=== PATIENT | female | born 1960 | race African-American/Black ===

== ENCOUNTER 2017-08-19 16:21 | Inpatient (IN) | payer OTHER ==
[~2017-08-19] VITALS: Ht 165.1 cm; Wt 82.2 kg
[2017-08-19] MEDS ORDERED: SODIUM CHLORIDE 0.9% 1000ML 1,000 ML IV STA (17:55)
[2017-08-19 18:01] LABS: BASOPHILS # (AUTO) 0.1 (0.0-0.1); BASOPHILS % 0.5 % (0.0-1.0); EOSINOPHILS % 0.2 % (0.0-6.0); HEMATOCRIT 34.8 % (34.2-44.1); HEMOGLOBIN 11.5 g/dL (12.0-16.0); LYMPHOCYTES # (AUTO) 2.7 (1.0-3.2); LYMPHOCYTES % 17.6 % (18.0-39.1); MEAN CORPUSCULAR HEMOGLOBIN 27.4 pg (28-32); MEAN CORPUSCULAR VOLUME 82.9 fL (81-99); MONOCYTES % 6.2 % (4.4-11.3); NEUTROPHILS # (AUTO) 11.6 (2.1-6.9); PLATELET COUNT 307 x10e3/uL (140-360); RED CELL DISTRIBUTION WIDTH 13.1 % (11.7-14.4)
[2017-08-19 18:13] LABS: INR 1.1; PROTHROMBIN TIME 13.4 seconds (11.9-14.5)
[2017-08-19 18:14] LABS: PARTIAL THROMBOPLASTIN TIME 25.8 seconds (23.8-35.5)
[2017-08-19 18:19] LABS: ALBUMIN 3.6 g/dL (3.5-5.0); ALBUMIN/GLOBULIN RATIO 0.8 (0.8-2.0); ANION GAP 13.4 mmol/L (8-16); CALCIUM 9.8 mg/dL (8.4-10.2); CREATININE, SERUM 1.53 mg/dL (0.57-1.11); POTASSIUM 4.4 mmol/L (3.5-5.1)
--- NOTE | 2017-08-19 18:58 | Diagnostic Imaging Report ---
PROCEDURE: CHEST SINGLE (PORTABLE) COMPARISON: None. INDICATIONS: FEVER, TOE INFECTION FINDINGS: LUNGS: Well-inflated without mass or infiltrate. The vasculature is normal PLEURA: No effusions or pneumothorax. HEART \T\ MEDIASTINUM: The heart is within normal size-limits. No hilar lymphadenopathy. BONES \T\ SOFT TISSUES: No focal osseous lesions. There is asymmetry of the breasts suggestive of postoperative changes of the right breast. Please correlate with surgical history. No radiopaque foreign bodies in the soft tissues. CONCLUSION: No acute thoracic abnormality. Dictated by: Jeffrey Gordon M.D. on 08/19/2017 at 18:59 Electronically approved by: Jeffrey Gordon M.D. on 08/19/2017 at 18:59
[2017-08-19] MEDS ORDERED: DEXTROSE 50% SYRINGE 50 ML IV PRN ×2 (19:30→21:15)
[2017-08-19] MEDS ORDERED: VANCOMYCIN 1GM/NS 250 ML 250 ML IV SCH ×2 (19:45→20:00)
--- OUTSIDE RECORDS SUMMARY | 2017-08-19 20:10 | XMS REPORT ---
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 Allergies, Adverse Reactions, Alerts This patient has no known allergies or adverse reactions. Medications This patient has no known medications. Results Test Description Test Time Test Comments Text Results Atomic Results Result Comments POCT-GLUCOSE METER 2016-07-28 12:10:00 POC-GLUCOSE METER (BEAKER) (test twre=5165) 133 mg/dL 70-110 TESTED AT [address] [address] HEMOGLOBIN [id number] 08:17:00* Test Item Value Reference Range Comments HEMOGLOBIN A1C (BEAKER) (test himb=447) 13.3 % 4.3-6.1 POCT-GLUCOSE [id number] 07:33:00* Test Item Value Reference Range Comments POC-GLUCOSE METER (BEAKER) (test vyqg=6898) 268 mg/dL 70-110 TESTED AT [address] [address] B-TYPE NATRIURETIC FACTOR (BNP)2016-07-28 06:03:00* Test Item Value Reference Range Comments B-TYPE NATRIURETIC PEPTIDE (BEAKER) (test nwll=317) 57 pg/mL 0-100 POCT-GLUCOSE [id number] 01:17:00* Test Item Value Reference Range Comments POC-GLUCOSE METER (BEAKER) (test ffqx=6875) 270 mg/dL 70-110 TESTED AT [address] [address] POCT-GLUCOSE [id number] 20:33:00* Test Item Value Reference Range Comments POC-GLUCOSE METER (BEAKER) (test oksw=9691) 312 mg/dL 70-110 TESTED AT [address] [address] POCT-GLUCOSE [id number] 17:44:00* Test Item Value Reference Range Comments POC-GLUCOSE METER (BEAKER) (test xsmx=3850) 376 mg/dL 70-110 TESTED AT [facility] [address] [facility] [address] KETONE, [id number] 16:40:00* Test Item Value Reference Range Comments KETONES, BLOOD (BEAKER) (test tcfy=8290) 0.1 mmol/L <0.4 BASIC METABOLIC [id number] 16:11:00* Test Item Value Reference Range Comments SODIUM (BEAKER) (test crdn=184) 140 meq/L 135-148 POTASSIUM (BEAKER) (test dasb=270) 4.5 meq/L 3.6-5.5 CHLORIDE (BEAKER) (test icxi=865) 100 meq/L 98-106 CO2 (BEAKER) (test cajp=798) 29 meq/L 24-32 BLOOD UREA NITROGEN (BEAKER) (test mioh=966) 14 mg/dL 10-26 CREATININE (BEAKER) (test lwrv=206) 0.79 mg/dL 0.50-1.20 GLUCOSE RANDOM (BEAKER) (test uznw=172) 414 mg/dL 70-110 CALCIUM (BEAKER) (test ivjc=650) 8.9 mg/dL 8.5-10.5 EGFR (BEAKER) (test fczi=1618) 92 mL/min/1.73 sq m ESTIMATED GFR IS NOT ACCURATE CREATININE CLEARANCE IN PREDICTING GLOMERULAR FILTRATION RATE. ESTIMATED GFR IS NOT APPLICABLE FOR DIALYSIS PATIENTS. [id number] 16:09:00* Test Item Value Reference Range Comments PROTIME (BEAKER) (test mjkp=088) 10.0 seconds 9.8-12.0 INR (BEAKER) (test tcok=877) 0.9 <=5.9 PARTIAL THROMBOPLASTIN TIME (BEAKER) (test lxzu=416) 20.2 seconds 25.8-34.5 RECOMMENDED COUMADIN/WARFARIN INR THERAPY RANGESSTANDARD DOSE: 2.0 - 3.0 Includes: PROPHYLAXIS for venous thrombosis, systemic embolization; TREATMENT for venous thrombosis and/or pulmonary embolus.HIGH RISK: Target INR is 2.5-3.5 for patients with mechanical heart valves.RAPID [id number] 16:02:00* Test Item Value Reference Range Comments RAPID CKMB (BEAKER) (test ybuy=2022) 3.4 ng/mL 0.0-4.3 RAPID TROPONIN [id number] 16:02:00* Test Item Value Reference Range Comments RAPID TROPONIN I (BEAKER) (test qowf=4324) < ng/mL <0.05 CBC W/PLT COUNT & AUTO [id number] 15:58:00* Test Item Value Reference Range Comments WHITE BLOOD CELL COUNT (BEAKER) (test jwru=952) 11.7 10e3/ L 4.0-10.0 RED BLOOD CELL COUNT (BEAKER) (test dqrn=814) 3.92 10e6/ L 4.00-5.00 HEMOGLOBIN (BEAKER) (test oifi=970) 10.5 g/dL 12.0-15.0 HEMATOCRIT (BEAKER) (test vqll=776) 33.0 % 36.0-45.0 MEAN CORPUSCULAR VOLUME (BEAKER) (test hwxa=185) 84.1 fL 82.0-99.0 MEAN CORPUSCULAR HEMOGLOBIN (BEAKER) (test mhhg=533) 26.8 pg 27.0-33.0 MEAN CORPUSCULAR HEMOGLOBIN CONC (BEAKER) (test dxjp=344) 31.9 g/dL 32.0- 36.0 RED CELL DISTRIBUTION WIDTH (BEAKER) (test qdgf=874) 12.8 % 10.3-14.2 PLATELET COUNT (BEAKER) (test wqvi=520) 359 10e3/ L 150-430 MEAN PLATELET VOLUME (BEAKER) (test endf=030) 7.7 fL 6.5-10.5 NEUTROPHILS RELATIVE PERCENT (BEAKER) (test toxh=836) 54 % LYMPHOCYTES RELATIVE PERCENT (BEAKER) (test hdil=693) 37 % MONOCYTES RELATIVE PERCENT (BEAKER) (test xfng=853) 8 % EOSINOPHILS RELATIVE PERCENT (BEAKER) (test vrjz=873) 1 % BASOPHILS RELATIVE PERCENT (BEAKER) (test dlvg=466) 1 % NEUTROPHILS ABSOLUTE COUNT (BEAKER) (test jsmg=520) 6.31 10e3/ L 1.80-8.00 LYMPHOCYTES ABSOLUTE COUNT (BEAKER) (test xuzz=111) 4.28 10e3/ L 1.48-4.50 MONOCYTES ABSOLUTE COUNT (BEAKER) (test pafu=291) 0.93 10e3/ L 0.00-1.30 EOSINOPHILS ABSOLUTE COUNT (BEAKER) (test mslc=366) 0.12 10e3/ L 0.00-0.50 BASOPHILS ABSOLUTE COUNT (BEAKER) (test xkyi=255) 0.08 10e3/ L 0.00-0.20 CHEST SINGLE (PORTABLE) [facility] [address] [address] Patient Name: ANDREA GORDON MR #: [id number] : 1960 Age/Sex: 57/F Req # : [id number] Adm Physician: Ordered by: CRICKET KILGORE MD Report #: [id number] Location: ER Room/Bed: Procedure: [id number] DX/CHEST SINGLE (PORTABLE) Exam Date: Exam Time: REPORT STATUS: Signed PROCEDURE: CHEST SINGLE (PORTABLE) COMPARISON: None. INDICATIONS: FEVER, TOE INFECTION FINDINGS: LUNGS: Well- inflated without mass or infiltrate. The vasculature is normal PLEURA: No effusions or pneumothorax. HEART T MEDIASTINUM: The heart is within normal size-limits. No hilar lymphadenopathy. BONES T SOFT TISSUES: No focal osseous lesions. There is asymmetry of the breasts suggestive of postoperative changes of the right breast. Please correlate with surgical history. No radiopaque foreign bodies in the soft tissues. CONCLUSION: No acute thoracic abnormality. Dictated by: Yessy Gordon M.D. on 08/19/2017 at 18:59 Electronically approved by: Yessy Gordon M.D. on 08/19/2017 at 18:59 Dictated By: YESSY GORDON MD 58 COPY TO: CRICKET KILGORE MD
--- OUTSIDE RECORDS SUMMARY | 2017-08-19 20:10 | XMS REPORT | Clinical Summary ---
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 Disp. Refills Start End Date Status Date polyethylene glycol Take 17 g by mouth daily 30 each 0 02/14/20 Active (GLYCOLAX) 17 gram packet as needed (Constipation). 15 atorvastatin (LIPITOR) 40 Take 40 mg by mouth. 10/05/19 Active MG tablet 16 baclofen (LIORESAL) 10 MG Take 10 mg by mouth 3 07/09/19 Active tablet (three) times daily as 17 needed . beta carotene 84045 UNIT Take 25,000 Units by Active capsule mouth daily . docosahexanoic acid 300 Take by mouth. Active mg Cap hydroCHLOROthiazide Take 12.5 mg by mouth 07/20/19 Active (MICROZIDE) 12.5 mg every morning . 15 capsule insulin detemir (LEVEMIR INJECT 110 UNITS DAILY. 12/18/19 Active FLEXTOUCH) 100 unit/mL (3 16 mL) InPn injection lisinopril Take 40 mg by mouth. 05/23/19 Active (PRINIVIL,ZESTRIL) 40 MG 17 tablet insulin aspart (NOVOLOG 30 Units 3 (three) times 04/26/20 Active FLEXPEN) 100 unit/mL InPn daily before meals INJECT 16 25 UNITS BEFORE EACH OF THE 3 MEALS. omeprazole (PRILOSEC) 40 Take 40 mg by mouth daily Active MG capsule . ondansetron (ZOFRAN, Take 4 mg by mouth 3 Active HYDROCHLORIDE,) 4 MG (three) times daily as tablet needed . pregabalin (LYRICA) 200 Take 200 mg by mouth 3 05/01/20 Active MG capsule (three) times daily 1 16 tablet twice daily for 2 weeks, then TID. Active Problems Problem Noted Date Pain of left calf 07/28/2016 Chronic diastolic CHF (congestive heart failure) (HCC) 07/28/2016 DM type 2 (diabetes mellitus, type 2) ([facility]) 07/28/2016 Overview: a1c 13.3 (07/2016) Pulmonary hypertension (HCC) 07/28/2016 Moderate malnutrition (HCC) 02/10/2015 Diabetic gastroparesis (HCC) 02/10/2015 Constipation 02/10/2015 Intractable vomiting 02/08/2015 Abdominal fluid collection 02/08/2015 Nausea with vomiting 01/26/2015 Incisional infection, initial encounter 01/25/2015 Abdominal pain 01/17/2015 Chronic cholecystitis with calculus 01/15/2015 Right sided abdominal pain 01/14/2015 Liver mass 01/18/2014 Diabetes type 2, uncontrolled (HCC) 01/18/2014 Anemia 05/18/2013 Overview: Mixed type Gallstones 05/11/2013 Asplenia 05/10/2013 Chronic back pain 05/10/2013 HTN (hypertension) 05/10/2013 Family History Medical History Relation Name Comments Coronary artery disease Brother 3 brothers f [place] Diabetes Brother Hypertension Brother Cancer Father Diabetes Maternal Grandmother Coronary artery disease Mother Diabetes Mother Hypertension Mother Cancer Paternal liver Grandfather Diabetes Paternal Grandmother Cancer Sister colon age 42 Diabetes Sister Hypertension Sister Relation Name Status Comments Brother Father Maternal Grandmother Mother Paternal Grandfather Paternal Grandmother Sister Social History Tobacco Use Types Packs/Day Years Used Date Never Smoker Smokeless Tobacco: Never Used Alcohol Use Drinks/Week oz/Week Comments No Sex Assigned at Date Recorded Not on file Last Filed Vital Signs Not on file Plan of Treatment Not on file Implants Implanted Type Area Reimbursement Analyst Device Expiration Model / Identifier Date Serial / Lot Adhesion Barrier,Seprafilm 5x6 - Cement/Nguyễn N/A: [id number] 01/16/2017 4301-02 / [id number] ler/Adhesi Abdomen SURGICAL / Implanted: Qty: 1 on 01/16/2015 by vufind [id number] Cesar Garner MD Results Not on fileafter 08/18/2016
--- NOTE | 2017-08-19 20:32 | Diagnostic Imaging Report ---
Exam: Left foot series, 3 views. Clinical History: Suspected foreign body in the left hallux, cellulitis Comparison: None. Findings: 3 views of the left foot. There is normal bone mineralization. Negative for acute, displaced fracture or dislocation. Joint spaces are preserved. Small posterior calcaneal enthesophyte. Ill-defined 6 mm rounded nodular density projecting in the soft tissues medial to the base of the first metatarsal bone only on the AP view. No radiopaque foreign bodies are identified. Impression: 1. Ill-defined 6 mm rounded nodular density projecting in the soft tissues medial to the base of the first metatarsal bone is indeterminate. A nonradiopaque foreign body could be a consideration, however, this may be secondary to focal infection, if this is the area of cellulitis. 2. No radiopaque foreign bodies are identified. 3. No cortical erosion or destruction to suggest osteomyelitis.. Signed by: Dr. Kwesi Rizo M.D. on 08/19/2017 8:29 PM
[2017-08-19] MEDS: PIPER-TAZ 3.375 GM 50 ML IV SCH (20:55)
[2017-08-19] MEDS: MORPHINE SULFATE 2 MG/ML SYR IV PRN (21:06)
[2017-08-19] MEDS: ONDANSETRON HCL INJ 2 MG/ML VIAL IV PRN (21:07)
[2017-08-19 21:30] VITALS: BP 148/72
[2017-08-19 21:44] VITALS: BP 126/74
[2017-08-19] MEDS ORDERED: HUMALOG MI100 UNIT/5 (21:44)
[2017-08-19] MEDS ORDERED: GABAPENTIN400 MG PO (21:44)
[2017-08-19] MEDS ORDERED: NOVOLOG100 UNIT/1 (21:44)
[2017-08-19] MEDS ORDERED: SIMVASTATIN10 MG PO (21:44)
[2017-08-19] MEDS ORDERED: LYRICA25 MG PO (21:44)
[2017-08-19] MEDS ORDERED: LISINOPRIL10 MG PO (21:44)
[2017-08-19] MEDS: INSULIN REGULAR, HUMAN 100 UNIT/1 ML 3ML VIAL SQ SCH (22:01)
[2017-08-19] MEDS: SODIUM CHLORIDE 0.9% 1000ML 1,000 ML IV SCH (22:12)
[2017-08-19] MEDS: VANCOMYCIN 1GM/NS 250 ML 250 ML IV SCH (22:25)
[2017-08-20] VITALS: BP 148/67
[2017-08-20] MEDS: PIPER-TAZ 3.375 GM 50 ML IV SCH ×4 (03:17→21:35)
[2017-08-20 04:00] VITALS: BP 164/77
[2017-08-20] MEDS: ONDANSETRON HCL INJ 2 MG/ML VIAL IV PRN ×5 (04:01→20:34)
[2017-08-20] MEDS: MORPHINE SULFATE 2 MG/ML SYR IV PRN ×4 (04:01→20:34)
[2017-08-20] MEDS: SODIUM CHLORIDE 0.9% 1000ML 1,000 ML IV SCH ×3 (04:20→19:30)
[2017-08-20 07:20] LABS: BASOPHILS % 0.2 % (0.0-1.0); EOSINOPHILS # (AUTO) 0.1 (0.0-0.4); EOSINOPHILS % 0.8 % (0.0-6.0); HEMATOCRIT 29.2 % (34.2-44.1); HEMOGLOBIN 9.4 g/dL (12.0-16.0); LYMPHOCYTES # (AUTO) 3.7 (1.0-3.2); LYMPHOCYTES % 28.5 % (18.0-39.1); MEAN CORPUSCULAR HEMOGLOBIN 27.3 pg (28-32); MEAN CORPUSCULAR HGB CONC 32.2 g/dL (31-35); MEAN CORPUSCULAR VOLUME 84.9 fL (81-99); MONOCYTES # (AUTO) 1.4 (0.2-0.8); MONOCYTES % 10.6 % (4.4-11.3); NEUTROPHILS # (AUTO) 7.8 (2.1-6.9); NEUTROPHILS % 59.6 % (38.7-80.0); PLATELET COUNT 275 x10e3/uL (140-360); RED BLOOD COUNT 3.44 x10e6/uL (3.6-5.1); RED CELL DISTRIBUTION WIDTH 13.2 % (11.7-14.4)
[2017-08-20] MEDS ORDERED: INSULIN REGULAR, HUMAN 100 UNIT/1 ML 3ML VIAL SQ SCH (07:30)
[2017-08-20 07:41] LABS: ANION GAP 10.8 mmol/L (8-16); CALCIUM 8.4 mg/dL (8.4-10.2); CREATININE, SERUM 1.96 mg/dL (0.57-1.11); POTASSIUM 4.8 mmol/L (3.5-5.1)
[2017-08-20 07:44] VITALS: BP 161/75
[2017-08-20] MEDS: VANCOMYCIN 1GM/NS 250 ML 250 ML IV SCH ×2 (07:50→20:34)
[2017-08-20] MEDS: DOCUSATE SODIUM 100 MG CAP PO SCH ×2 (08:00→17:00)
[2017-08-20] MEDS: INSULIN REGULAR, HUMAN 100 UNIT/1 ML 3ML VIAL SQ SCH ×4 (10:16→21:30)
[2017-08-20 11:49] VITALS: BP 136/60
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
[2017-08-20 16:04] VITALS: BP 166/77
[2017-08-20] MEDS ORDERED: ENOXAPARIN SOD INJ 40 MG/0.4 ML SYR SC SCH (17:00)
[2017-08-21] VITALS (7 sets, daily range): BP systolic 114–191; BP diastolic 57–86
[2017-08-21] MEDS: HYDRALAZINE HCL 20 MG/ML VIAL IV PRN ×2 (00:31→05:54)
[2017-08-21] MEDS: MORPHINE SULFATE 2 MG/ML SYR IV PRN ×3 (00:40→16:45)
[2017-08-21] MEDS: ONDANSETRON HCL INJ 2 MG/ML VIAL IV PRN ×3 (00:40→16:45)
[2017-08-21] MEDS: SODIUM CHLORIDE 0.9% 1000ML 1,000 ML IV SCH (04:55)
[2017-08-21] MEDS: PIPER-TAZ 3.375 GM 50 ML IV SCH ×3 (06:38→22:35)
[2017-08-21 07:14] LABS: BASOPHILS # (AUTO) 0.1 (0.0-0.1); BASOPHILS % 0.4 % (0.0-1.0); EOSINOPHILS # (AUTO) 0.1 (0.0-0.4); EOSINOPHILS % 0.8 % (0.0-6.0); HEMATOCRIT 31.2 % (34.2-44.1); HEMOGLOBIN 10.1 g/dL (12.0-16.0); LYMPHOCYTES # (AUTO) 5.5 (1.0-3.2); LYMPHOCYTES % 33.2 % (18.0-39.1); MEAN CORPUSCULAR HEMOGLOBIN 27.7 pg (28-32); MEAN CORPUSCULAR HGB CONC 32.4 g/dL (31-35); MEAN CORPUSCULAR VOLUME 85.5 fL (81-99); MONOCYTES # (AUTO) 1.3 (0.2-0.8); MONOCYTES % 7.6 % (4.4-11.3); NEUTROPHILS # (AUTO) 9.5 (2.1-6.9); NEUTROPHILS % 57.6 % (38.7-80.0); PLATELET COUNT 296 x10e3/uL (140-360); RED BLOOD COUNT 3.65 x10e6/uL (3.6-5.1); RED CELL DISTRIBUTION WIDTH 13.2 % (11.7-14.4)
[2017-08-21 07:26] LABS: ANION GAP 14.1 mmol/L (8-16); CALCIUM 9.1 mg/dL (8.4-10.2); CREATININE, SERUM 1.63 mg/dL (0.57-1.11); POTASSIUM 4.1 mmol/L (3.5-5.1)
[2017-08-21 07:39] LABS: MAGNESIUM 1.3 MG/DL (1.3-2.1)
[2017-08-21] MEDS: INSULIN REGULAR, HUMAN 100 UNIT/1 ML 3ML VIAL SQ SCH ×3 (07:45→21:30)
[2017-08-21] MEDS: NPH, HUMAN INSULIN ISOPHANE 100 UNIT/1 ML 3ML VIAL SQ SCH ×2 (07:50→16:25)
--- NOTE | 2017-08-21 07:59 | Progress Note ---
DATE: August 21, 2017 SUBJECTIVE: Patient seen at bedside accompanied by spouse. Having some nausea and vomiting. Has some discomfort to the left lower extremity but is a little bit better than yesterday. OBJECTIVE: Vitals: Afebrile. Pulse rate 93. Respirations 18. Blood pressure 171/79. O2 saturation 96%. Labs show a white blood cell count of 16.4, going up from 13.1. Pedal pulses are palpable. Skin temperature is symmetrical. Some edema noted to the left great toe. ASSESSMENT: Cellulitis secondary to puncture wound with neuropathy. PLAN: X-rays, 3 views of left foot, will be taken and compared to previous x-rays. Will continue IV antibiotics. Patient does have Zofran for her nausea. Will continue to follow and continue IV antibiotics. Job#: [id number]
[2017-08-21] MEDS: VANCOMYCIN 1GM/NS 250 ML 250 ML IV SCH ×2 (08:00→20:20)
[2017-08-21] MEDS: PROMETHAZINE 12.5MG/ NACL 0.9% 12.5 MG/50 ML BAG IV PRN ×2 (08:10→20:20)
[2017-08-21] MEDS: DOCUSATE SODIUM 100 MG CAP PO SCH ×2 (08:30→16:25)
[2017-08-21] MEDS: METOPROLOL TARTRATE 50 MG TAB PO SCH ×2 (08:30→22:40)
[2017-08-21] MEDS: MUPIROCIN 2% OINT 22 GM TUBE TOP SCH (09:15)
[2017-08-21 09:36] LABS: EOSINOPHILS % (MANUAL) 1 % (0-7); LYMPHOCYTES % (MANUAL) 35 % (19-48); MONOCYTES % (MANUAL) 5 % (3.4-9.0); NEUTROPHILS % (MANUAL) 59 % (40-74)
[2017-08-21 09:37] LABS: ANISOCYTOSIS SLIGHT; HYPOCHROMASIA SLIGHT; RBC MORPHOLOGY COMMENT NORMAL
[2017-08-21 09:38] LABS: PLATELET ESTIMATE ADEQUATE; PLATELET MORPHOLOGY COMMENT NORMAL
--- NOTE | 2017-08-21 09:40 | Progress Note ---
DATE: August 20, 2017 INTERNAL MEDICINE PROGRESS NOTE SUBJECTIVE: Ms. Gordon was seen and examined at bedside. Possible improvement slowly on the erythema, but overall still with significant redness, significant warmth and significant possible early fluctuance. The patient's blood pressure is high. The patient otherwise eating better. She feels slightly better today. REVIEW OF SYSTEMS: No headaches. No bleeding. OBJECTIVE VITALS: Afebrile. Vital signs noted per electronic record. GENERAL: No acute distress. Alert and calm. HEENT: Normocephalic and atraumatic. NECK: Supple. Throat midline. LUNGS: Bilateral air entry. Few rhonchi. CARDIOVASCULAR: S1 and S2. No murmurs, rubs or gallops. ABDOMEN: Soft and nontender. EXTREMITIES: No clubbing. No cyanosis. No edema. Only edema, warmth and possible induration is of the left great toe. SKIN: No rash. No purpura. LABS: BUN 29, creatinine 1.9, potassium 4.8. White count 13, hematocrit 29 and platelets 275,000. IMPRESSION AND PLAN 1. Elevated creatinine, acute kidney injury versus chronic kidney disease. 2. Severe but localized cellulitis, possible early abscess or deep tissue infection of left great toe. 3. Diabetes. 4. Hypertension with urgency. 5. Puncture wound with a fractured toe. Will continue local care. IV antibiotics. Follow up kidney function and adjust antibiotics closely. Light Bactroban ointment. Continue wet-to-dry Betadine dressing to the left great toe b.i.d. The patient may or may not need an I and D of the toe. Will follow along closely. Job#: [id number] BUFFY
--- NOTE | 2017-08-21 16:41 | History and Physical ---
PRIMARY CARE DOCTOR: [facility] This is coverage for Dr. Pradeep Mcqueen. HISTORY: Ms. Gordon is a pleasant 57-year-old female with pain to her left great toe. Patient with occurrence 4 days previous. She stepped on a tack. Today, her left hallux is more red and more painful. Her entire foot started to become little bit swollen. This did not get better on conservative therapy. It was very painful, so she elected to come to the emergency room to have evaluation. When she came to emergency room, her white count was 15,000 and blood sugar was 263. Creatinine was 1.5. At this point, it was elected to admit her due to infection severity. PAST MEDICAL HISTORY: Diabetes, hypertension. No knowledge of previous eye problems nor kidney problems from diabetes. MEDICATIONS: Medication list reviewed per electronic record. Diabetes medications include oral hypoglycemics as well as insulin. ALLERGIES: NO KNOWN DRUG ALLERGIES. SOCIAL HISTORY: No smoking, no drinking, no drugs. Patient formerly worked in [employer] industry. FAMILY HISTORY: Noncontributory. REVIEW OF SYSTEMS: GENERAL: No weight changes. OPHTHALMOLOGIC: No double vision. ENT: No dry mouth. LUNGS: No asthma. CARDIAC: No heart attacks. GI: No constipation right now, although there is some chronic constipation. : No blood in urine. MUSCULOSKELETAL: No arthritis significant. DERMATOLOGIC: No rash. PSYCHIATRIC: No depression. LABS: Labs reviewed per electronic record. Albumin is 3.6. Foot x-ray includes no foreign bodies, ill-defined 6-mm rounded nodular density projecting in soft tissues medial to the base of the first metatarsal bone being indeterminate. IMPRESSION AND PLAN: 1. Left great toe cellulitis significant. 2. Abnormal foot radiography, possible soft tissue mass. 3. Diabetes. 4. Hypertension. At this time, will get podiatry consult to review the x-ray. Patient may need local debridement. Patient will have intravenous antibiotics being given. Furthermore, patient will be admitted, and will maintain some control of her diabetes. Dr. Mcqueen and I would like to thank Dr. Lomeli for allowing me the chance to participate in the care of Ms. Gordon. Do not hesitate to call us if we can help in anyway. Job#: [id number]
[2017-08-21] MEDS: ENOXAPARIN 30 MG/0.3 ML SYR SC SCH (17:00)
[2017-08-21] MEDS ORDERED: ENOXAPARIN SOD INJ 40 MG/0.4 ML SYR SC SCH (17:00)
[2017-08-22] VITALS (9 sets, daily range): BP systolic 132–167; BP diastolic 62–77
[2017-08-22] MEDS: SODIUM CHLORIDE 0.9% 1000ML 1,000 ML IV SCH (01:39)
[2017-08-22] MEDS: MORPHINE SULFATE 2 MG/ML SYR IV PRN ×2 (04:39→10:15)
[2017-08-22] MEDS: PROMETHAZINE 12.5MG/ NACL 0.9% 12.5 MG/50 ML BAG IV PRN ×3 (04:46→21:12)
[2017-08-22] MEDS: PIPER-TAZ 3.375 GM 50 ML IV SCH ×3 (06:20→16:08)
[2017-08-22 07:19] LABS: BASOPHILS % 0.3 % (0.0-1.0); EOSINOPHILS # (AUTO) 0.1 (0.0-0.4); EOSINOPHILS % 0.7 % (0.0-6.0); HEMATOCRIT 28.4 % (34.2-44.1); HEMOGLOBIN 9.1 g/dL (12.0-16.0); LYMPHOCYTES # (AUTO) 4.5 (1.0-3.2); LYMPHOCYTES % 38.6 % (18.0-39.1); MEAN CORPUSCULAR HEMOGLOBIN 27.2 pg (28-32); MEAN CORPUSCULAR VOLUME 84.8 fL (81-99); MONOCYTES % 8.2 % (4.4-11.3); NEUTROPHILS # (AUTO) 6.1 (2.1-6.9); NEUTROPHILS % 51.9 % (38.7-80.0); PLATELET COUNT 291 x10e3/uL (140-360); RED BLOOD COUNT 3.35 x10e6/uL (3.6-5.1); RED CELL DISTRIBUTION WIDTH 13.4 % (11.7-14.4)
[2017-08-22] MEDS: NPH, HUMAN INSULIN ISOPHANE 100 UNIT/1 ML 3ML VIAL SQ SCH ×2 (07:30→17:48)
[2017-08-22] MEDS: INSULIN REGULAR, HUMAN 100 UNIT/1 ML 3ML VIAL SQ SCH ×4 (07:30→21:00)
[2017-08-22 07:38] LABS: ALBUMIN 2.7 g/dL (3.5-5.0); ALBUMIN/GLOBULIN RATIO 0.7 (0.8-2.0); ANION GAP 10.8 mmol/L (8-16); CALCIUM 8.8 mg/dL (8.4-10.2); CREATININE, SERUM 1.43 mg/dL (0.57-1.11); MAGNESIUM 1.2 MG/DL (1.3-2.1); POTASSIUM 3.8 mmol/L (3.5-5.1)
--- NOTE | 2017-08-22 08:49 | Progress Note ---
DATE: August 22, 2017 SUBJECTIVE: Patient is doing much better. Denies any history of fever, chills, nausea or vomiting on this date. Decreased pain to the left lower extremity. OBJECTIVE Vitals: Afebrile. Pulse rate 77, respirations 18, blood pressure 132/62. O2 saturation is 97%. Labs show a white blood cell count dropping from 16.49 to 11.67. Still has some tenderness to the left great toe. Decreased cellulitis. There is pain to the plantar medial aspect of the left great toe with decreased pain to the midfoot of the left lower extremity. ASSESSMENT: Puncture wound and cellulitis, left great toe, secondary to multiple punctures with a tack in shoe. PLAN: Will order x-rays, 3 views, which were not done yesterday to see if there are any bony changes or possible gas in the tissue. Will continue IV antibiotics. Continue local wound care. Job#: [id number]
--- NOTE | 2017-08-22 09:37 | Diagnostic Imaging Report ---
PROCEDURE:FOOT LEFT COMPLETE TECHNIQUE:AP, lateral and oblique views left foot INDICATION:Great toe swelling COMPARISON:[facility], DX, FOOT LEFT COMPLETE, 08/19/2017, 21:01. FINDINGS: The left foot is intact and in anatomic alignment. Soft tissue swelling is decreased relative to August 19. No acute focal erosion or periosteal reaction. Chronic fracture of the middle toe middle phalanx without bridging. No foreign bodies. CONCLUSION: 1. No acute abnormality of the great toe. 2. Regional soft tissue swelling appears decreased from August 19. 3. Chronic fracture of the middle toe middle phalanx without osseous bridging. Dictated by: Yonatan Lagos M.D. on 08/22/2017 at 9:38 Electronically approved by: Yonatan Lagos M.D. on 08/22/2017 at 9:38
[2017-08-22] MEDS: VANCOMYCIN 1GM/NS 250 ML 250 ML IV SCH (10:15)
[2017-08-22] MEDS: MUPIROCIN 2% OINT 22 GM TUBE TOP SCH (10:21)
[2017-08-22] MEDS: DOCUSATE SODIUM 100 MG CAP PO SCH ×2 (10:21→17:48)
[2017-08-22] MEDS: METOPROLOL TARTRATE 50 MG TAB PO SCH ×2 (10:21→21:13)
[2017-08-22] MEDS ORDERED: MAGNESIUM SULFATE 2GM/50ML 50 ML IV ONE (12:15)
[2017-08-22] MEDS: ONDANSETRON HCL INJ 2 MG/ML VIAL IV PRN (12:22)
--- NOTE | 2017-08-22 14:33 | Progress Note ---
DATE: August 22, 2017 INTERNAL MEDICINE PROGRESS NOTE OBJECTIVE: Ms. Gordon was seen and examined at bedside. Patient continues to have issues regarding her foot. There is still some pain at the ball of foot but the swelling and the redness around the toe is getting better. Patient continues with no fevers now. White count is improving and is now 12. There is less nausea but she still has nausea. REVIEW OF SYSTEMS: No headaches. No rash. OBJECTIVE: VITAL SIGNS: Afebrile. Vital signs noted per electronic record. GENERAL: No acute distress. Alert and calm. HEENT: Normocephalic, atraumatic. NECK: Supple. Throat midline. LUNGS: Clear. Bilateral air entry. Rare rhonchi. CARDIOVASCULAR: S1, S2. No murmurs, rubs or gallops. ABDOMEN: Soft, nontender. EXTREMITIES: No clubbing. No cyanosis. There is no edema. INTEGUMENT: No rash. No purpura. LABS: Include 12 white count, 29 hematocrit, 15 BUN, creatinine 1.4. Magnesium 1.2. IMPRESSION/PLAN: 1. Acute kidney failure, cannot rule out chronic kidney disease but ultrasound was normal. 2. Severe cellulitis of left big toe. 3. Uncontrolled diabetes. 4. Hypomagnesemia. Recheck foot x-ray today. Replete magnesium. Will repeat a vancomycin trough given the very fragile kidney state and the elevated creatinine 1.4. Continue the antibiotic and she is improving. Job#: [id number] KOBE
[2017-08-22] MEDS: ENOXAPARIN 30 MG/0.3 ML SYR SC SCH (17:00)
--- NOTE | 2017-08-22 20:14 | Progress Note ---
DATE: August 21, 2017 INTERNAL MEDICINE PROGRESS NOTE SUBJECTIVE: Ms. Gordon was seen and examined at bedside. She continues to have some foot pain. However, it is slightly better swelling, less erythema today. She is having some nausea, however. Blood pressure remains high normal or high. REVIEW OF SYSTEMS: No diarrhea, no rash. OBJECTIVE VITALS: Afebrile. Vital signs noted per the chart record. GENERAL: No acute distress. Alert but looks pale and still not looking healthy yet. HEENT: Normocephalic and atraumatic. NECK: Supple. Throat midline. LUNGS: Bilateral air entry. Clear. CARDIOVASCULAR: S1 and S2. No murmurs, rubs, or gallops. ABDOMEN: Soft and nontender. EXTREMITIES: No clubbing. No cyanosis. There is decreased edema, decreased erythema, and decreased warmth to the left hallux. However, it is still very tender. LABS: BUN 17, creatinine 1.6. White count 16, hematocrit 31, and platelets 296,000. IMPRESSIONS 1. Acute kidney failure. 2. Severe sepsis.. 3. Left toe cellulitis, severe. 4. Diabetes. 5. nausea, emesis, and malaise. PLAN: Continue IV antibiotics. Follow up until this gets better. Podiatry followup is appreciated. Hopefully, the patient does not need any surgical management. Continue to follow the creatinine very closely given the kidney failure and the vancomycin which may have to be adjusted continuously. IV fluid low dose. Antiemetics. Job#: [id number]
[2017-08-22] MEDS: VANCOMYCIN 750MG/NS 150ML IVPB 150 ML IV SCH (21:12)
[2017-08-23] VITALS (7 sets, daily range): BP systolic 117–164; BP diastolic 54–78
[2017-08-23] MEDS: PIPER-TAZ 3.375 GM 50 ML IV SCH ×3 (00:13→17:02)
[2017-08-23] MEDS: SODIUM CHLORIDE 0.9% 1000ML 1,000 ML IV SCH ×2 (06:08→17:02)
[2017-08-23] MEDS: INSULIN REGULAR, HUMAN 100 UNIT/1 ML 3ML VIAL SQ SCH ×4 (07:30→20:55)
[2017-08-23] MEDS: NPH, HUMAN INSULIN ISOPHANE 100 UNIT/1 ML 3ML VIAL SQ SCH ×2 (07:30→17:11)
[2017-08-23 08:01] LABS: ANION GAP 10.3 mmol/L (8-16); CALCIUM 8.6 mg/dL (8.4-10.2); CREATININE, SERUM 1.41 mg/dL (0.57-1.11); MAGNESIUM 1.7 MG/DL (1.3-2.1); POTASSIUM 4.3 mmol/L (3.5-5.1)
[2017-08-23] MEDS: DOCUSATE SODIUM 100 MG CAP PO SCH ×2 (10:00→17:03)
[2017-08-23] MEDS: MORPHINE SULFATE 2 MG/ML SYR IV PRN (10:01)
[2017-08-23] MEDS: MUPIROCIN 2% OINT 22 GM TUBE TOP SCH (10:01)
[2017-08-23] MEDS: PROMETHAZINE 12.5MG/ NACL 0.9% 12.5 MG/50 ML BAG IV PRN ×2 (10:01→22:55)
[2017-08-23] MEDS: METOPROLOL TARTRATE 50 MG TAB PO SCH ×2 (10:01→20:54)
[2017-08-23] MEDS: VANCOMYCIN 750MG/NS 150ML IVPB 150 ML IV SCH ×2 (11:00→23:24)
--- NOTE | 2017-08-23 15:00 | Progress Note ---
DATE: August 23, 2017 SUBJECTIVE: Patient is seen at bedside, doing better. She does have some nausea and vomiting after eating. Denies any history of fever or chills. OBJECTIVE VITAL SIGNS: Afebrile. Pulse rate 67, respirations 18, blood pressure 150/70, and O2 saturation 97%. LABORATORY DATA: Labs show a white blood cell count dropping to 11.6, hemoglobin 9.1, and hematocrit 28.4 with a platelet count of 291. Has a necrotic scab plantar aspect of the left great toe, demarcating, decreased pain. There feels to be no evidence of any type of fluctuance on the toe. ASSESSMENT: Resolving cellulitis with a grade 1, possibly grade 2 ulceration, left great toe secondary to multiple puncture wounds via tack. PLAN: We will continue to monitor. The lesion may be surgically debrided at bedside possibly tomorrow or Friday depending on how patient is feeling. We will continue IV antibiotics. We will continue offloading and continue wound care. Job#: [id number] RIC
--- NOTE | 2017-08-23 16:07 | Progress Note ---
DATE: August 23, 2017 INTERNAL MEDICINE PROGRESS NOTE SUBJECTIVE: Ms. Gordon was seen and examined at bedside. She is mostly accepting her antibiotics. She still gets some nausea when she gets both of her antibiotics. Has 97% oxygen saturation room air FiO2, so she is looking about the same as it is not clearly getting better yet. REVIEW OF SYSTEMS: No bleeding. No diarrhea. OBJECTIVE VITAL SIGNS: Afebrile. Vital signs reviewed per electronic record. GENERAL: No acute distress. Alert and calm but very weak and pale. HEENT: Normocephalic, atraumatic. NECK: Supple. Throat midline. LUNGS: Bilateral air entry. A few rhonchi. CARDIOVASCULAR: S1, S2. No murmurs, rubs or gallops. ABDOMEN: Soft, nontender. EXTREMITIES: No clubbing. No cyanosis. There is still edema local to the foot only. INTEGUMENT: No rash. Covered lesion. LABS: BUN 15 and 1.4 creatinine, 12 white count, 20 hematocrit, 291 platelets. IMPRESSION AND PLAN 1. Acute kidney failure. 2. Severe sepsis, cellulitis plus or minus other possible deeper infection. 3. Diabetes. 4. Nausea and vomiting, intermittent. 5. Hypertension. Hypertension control minimally off but fair for now. We will not change medicines as sometimes the blood pressure goes to the 100 to 117 range. Glycemic control is better today as we restarted more insulin and will continue to creep up slowly, noting the patient is not eating all the time. Continue IV antibiotics. Follow up and treat symptoms. Podiatry is considering if they have to open up the lesion due to persistent symptoms and the slow progress. Job#: [id number]
[2017-08-23] MEDS: ENOXAPARIN 30 MG/0.3 ML SYR SC SCH (17:00)
[2017-08-23] MEDS: ONDANSETRON HCL INJ 2 MG/ML VIAL IV PRN (20:55)
[2017-08-24] VITALS (8 sets, daily range): BP systolic 135–169; BP diastolic 61–79
[2017-08-24] MEDS: PIPER-TAZ 3.375 GM 50 ML IV SCH ×3 (00:31→16:12)
[2017-08-24] MEDS: PROMETHAZINE 12.5MG/ NACL 0.9% 12.5 MG/50 ML BAG IV PRN ×3 (05:27→17:50)
[2017-08-24] MEDS: HYDRALAZINE HCL 20 MG/ML VIAL IV PRN (05:28)
[2017-08-24] MEDS: MORPHINE SULFATE 2 MG/ML SYR IV PRN ×3 (08:20→19:29)
[2017-08-24] MEDS: DOCUSATE SODIUM 100 MG CAP PO SCH ×2 (09:00→16:12)
[2017-08-24] MEDS: VANCOMYCIN 750MG/NS 150ML IVPB 150 ML IV SCH ×2 (09:00→19:29)
[2017-08-24] MEDS: METOPROLOL TARTRATE 50 MG TAB PO SCH ×2 (09:00→20:15)
[2017-08-24] MEDS: NPH, HUMAN INSULIN ISOPHANE 100 UNIT/1 ML 3ML VIAL SQ SCH ×2 (09:07→17:51)
[2017-08-24] MEDS: INSULIN REGULAR, HUMAN 100 UNIT/1 ML 3ML VIAL SQ SCH ×4 (09:08→20:18)
--- NOTE | 2017-08-24 11:25 | Progress Note ---
DATE: August 24, 2017 SUBJECTIVE: Patient seen at bedside accompanied by his spouse. He is relaying decreased pain to the left lower extremity. Denying any history of fever, chills, nausea or vomiting. OBJECTIVE VITAL SIGNS: Afebrile. Pulse rate 84, respirations 18, blood pressure 157/77, and O2 saturation 97%. EXTREMITIES: Has some necrosis to the plantar aspect of the left great toe superficial, possibly down to subcutaneous tissue, measuring less than 1.5 cm in diameter. Still some swelling noted to the left foot. LABS: Noted. ASSESSMENT: Grade II ulcer secondary to puncture wound, peripheral neuropathy with a fractured third digit left foot, feeling somewhat better. PLAN: We will continue bridgette splint to second and third toes. We will continue IV antibiotics such as vancomycin and Zosyn. Ulceration may be debrided tomorrow. We will repeat CBC with this in a.m. tomorrow. Job#: [id number] VAS
[2017-08-24] MEDS: PSYLLIUM 6GM PACKET PO PRN (12:06)
[2017-08-24] MEDS: MUPIROCIN 2% OINT 22 GM TUBE TOP SCH (13:59)
[2017-08-24] MEDS: ENOXAPARIN 30 MG/0.3 ML SYR SC SCH (16:12)
[2017-08-24] MEDS: METOCLOPRAMIDE HCL 10 MG TAB PO SCH (20:15)
[2017-08-25] VITALS (9 sets, daily range): BP systolic 145–159; BP diastolic 65–88
[2017-08-25] MEDS: PIPER-TAZ 3.375 GM 50 ML IV SCH ×3 (00:55→16:00)
[2017-08-25] MEDS: MORPHINE SULFATE 2 MG/ML SYR IV PRN ×4 (01:30→23:12)
[2017-08-25] MEDS: PROMETHAZINE 12.5MG/ NACL 0.9% 12.5 MG/50 ML BAG IV PRN (01:30)
[2017-08-25] MEDS: SODIUM CHLORIDE 0.9% 1000ML 1,000 ML IV SCH ×2 (03:39→08:55)
[2017-08-25] MEDS: HYDRALAZINE HCL 20 MG/ML VIAL IV PRN (06:43)
[2017-08-25 07:25] LABS: BASOPHILS # (AUTO) 0.1 (0.0-0.1); BASOPHILS % 0.6 % (0.0-1.0); EOSINOPHILS # (AUTO) 0.2 (0.0-0.4); EOSINOPHILS % 1.4 % (0.0-6.0); HEMATOCRIT 27.9 % (34.2-44.1); HEMOGLOBIN 8.8 g/dL (12.0-16.0); LYMPHOCYTES # (AUTO) 3.3 (1.0-3.2); LYMPHOCYTES % 30.8 % (18.0-39.1); MEAN CORPUSCULAR HEMOGLOBIN 27.2 pg (28-32); MEAN CORPUSCULAR HGB CONC 31.5 g/dL (31-35); MEAN CORPUSCULAR VOLUME 86.1 fL (81-99); MONOCYTES # (AUTO) 1.1 (0.2-0.8); NEUTROPHILS # (AUTO) 6.1 (2.1-6.9); NEUTROPHILS % 56.9 % (38.7-80.0); PLATELET COUNT 335 x10e3/uL (140-360); RED BLOOD COUNT 3.24 x10e6/uL (3.6-5.1); RED CELL DISTRIBUTION WIDTH 13.5 % (11.7-14.4)
[2017-08-25] MEDS: INSULIN REGULAR, HUMAN 100 UNIT/1 ML 3ML VIAL SQ SCH ×4 (07:30→21:00)
[2017-08-25 07:49] LABS: ANION GAP 10.9 mmol/L (8-16); CALCIUM 8.6 mg/dL (8.4-10.2); CREATININE, SERUM 1.1 mg/dL (0.57-1.11); MAGNESIUM 1.5 MG/DL (1.3-2.1); POTASSIUM 3.9 mmol/L (3.5-5.1)
[2017-08-25] MEDS: NPH, HUMAN INSULIN ISOPHANE 100 UNIT/1 ML 3ML VIAL SQ SCH ×2 (08:00→16:25)
[2017-08-25] MEDS: METOCLOPRAMIDE HCL 10 MG TAB PO SCH ×4 (08:00→22:14)
[2017-08-25] MEDS: DOCUSATE SODIUM 100 MG CAP PO SCH ×2 (08:15→17:15)
[2017-08-25] MEDS: METOPROLOL TARTRATE 50 MG TAB PO SCH ×2 (08:15→22:13)
[2017-08-25] MEDS: PSYLLIUM 6GM PACKET PO PRN (09:05)
--- NOTE | 2017-08-25 09:20 | Progress Note ---
DATE: August 25, 2017 SUBJECTIVE: Patient seen at bedside. Having some moderate pain to the head. Denying any history of fever, chills, nausea or vomiting. OBJECTIVE: Vitals: Afebrile. Pulse rate 79, respirations 16, blood pressure 145/70, O2 saturation 97%. Labs noted. White blood cell count 10.7, hemoglobin 8.8, hematocrit 27.9 with a platelet count of 335. Cellulitis of the left great toe continues to improve. Still some pain upon palpation and some cellulitis plantarly into the metatarsophalangeal joint. ASSESSMENT: Cellulitis with neuropathy and pain, 2nd toe left foot, with a possible grade-2 ulcer with some necrosis noted plantarly. PLAN: Secondary to the pain she was having, no debridement of the ulcer was done on this date. Will continue local wound care. Continue IV antibiotics. Debridement of ulcer will be done tomorrow if she is feeling better. Job#: [id number]
[2017-08-25] MEDS: VANCOMYCIN 750MG/NS 150ML IVPB 150 ML IV SCH ×2 (09:35→23:12)
[2017-08-25] MEDS: MUPIROCIN 2% OINT 22 GM TUBE TOP SCH (09:56)
[2017-08-25] MEDS: ONDANSETRON HCL INJ 2 MG/ML VIAL IV PRN (11:39)
--- NOTE | 2017-08-25 13:21 | Progress Note ---
DATE: August 24, 2017 INTERNAL MEDICINE PROGRESS NOTE SUBJECTIVE: Mrs. Gordon was seen and examined at bedside. The foot is slightly better superficially. However, there still seems to be some swelling of her skin. There is some necrosis on plantar aspect of the left great toe. Patient still on the IV fluid at 60 mL per hour. There is mild nausea before meals. Blood pressure transiently elevated this morning. REVIEW OF SYSTEMS: No headaches, no rash. OBJECTIVE VITAL SIGNS: Afebrile. Vital signs stable, reviewed per electronic record. GENERAL: No acute distress. Alert and calm. HEENT: Normocephalic, atraumatic. NECK: Supple. Throat midline. LUNGS: Bilateral air entry, clear. CARDIOVASCULAR: S1, S2. No murmurs, rubs or gallops. ABDOMEN: Soft, nontender. EXTREMITIES: No clubbing, no cyanosis. There is mild edema at the involved foot. IMPRESSIONS AND PLAN 1. Recurrent nausea, possible gastropathy. 2. Admit for severe left toe cellulitis, rule out deep infection. 3. Uncontrolled diabetes. 4. Hypertension. Modified medicine slightly given for blood pressure control. Increase sugar control, but recently it is much better since changes done yesterday. Will follow up closely. Continue encourage eating. Will give before meals. Continue IV fluids and intermittent vancomycin troughs. Podiatry to debride tomorrow due to leg in progress. Job#: [id number] CQ
[2017-08-25] MEDS: ACETAMINOPHEN 325 MG TAB PO PRN (15:54)
[2017-08-25] MEDS: ENOXAPARIN 30 MG/0.3 ML SYR SC SCH (17:00)
[2017-08-25] MEDS ORDERED: ACETAMINOPHEN/CODEINE 300MG - 30MG TAB PO PRN (18:45)
[2017-08-25] MEDS ORDERED: MORPHINE SULFATE 2 MG/ML SYR IV PRN (22:45)
[2017-08-26] VITALS (11 sets, daily range): BP systolic 126–223; BP diastolic 62–110
[2017-08-26] MEDS: PIPER-TAZ 3.375 GM 50 ML IV SCH ×2 (00:11→08:00)
--- NOTE | 2017-08-26 00:40 | Progress Note ---
DATE: August 25, 2017 INTERNAL MEDICINE PROGRESS NOTE SUBJECTIVE: Patient was seen and examined at bedside. Patient with improving blood works including creatinine. Patient also has continued pain of lower extremity. It was elected due to refractory leg symptoms that it would be preferable to open up and debride. Patient with slightly high blood pressure and this was deferred after discussing with patient. Patient overall with slightly improving . REVIEW OF SYSTEMS: No headaches, no bleeding. OBJECTIVE: VITAL SIGNS: Afebrile, vital signs noted per electronic record. GENERAL: In no acute distress, alert and calm. HEENT: Normocephalic, atraumatic. NECK: Supple. Throat midline. LUNGS: Bilateral air entry, few rare rhonchi. CARDIOVASCULAR: S1, S2. No murmurs, rubs, or gallops. ABDOMEN: Soft, nontender. EXTREMITIES: No clubbing, no cyanosis, there is no generalized edema, just focal edema on that affected foot. INTEGUMENT: No rash, no purpura. The lesion was covered. LABS: 14 BUN, 1.1 creatinine. 3.9 potassium. 11 white count, 28 hematocrit, 335,000 platelets. IMPRESSION AND PLAN: 1. Cellulitis, severe. 2. Neuropathy and pain. 3. Uncontrolled diabetes. 4. Fractured third toe. 5. Acute kidney failure. Will stop fluid as creatinine is much improved. Intermittent vancomycin levels will be continued. Continue to adjust vancomycin as needed. Continue slow diabetes control. The sugars are better. Furthermore, blood pressure is better. Will slowly resume some medications including her angiotensin-converting enzyme inhibitor, which was originally held due to the kidney failure. Podiatry to debride the foot tomorrow. Job#: [id number]
[2017-08-26] MEDS: HYDRALAZINE HCL 20 MG/ML VIAL IV PRN ×2 (02:45→04:57)
[2017-08-26] MEDS: MORPHINE SULFATE 2 MG/ML SYR IV PRN ×5 (04:57→21:50)
[2017-08-26] MEDS: PROMETHAZINE 12.5MG/ NACL 0.9% 12.5 MG/50 ML BAG IV PRN ×2 (04:57→10:06)
[2017-08-26] MEDS: METOCLOPRAMIDE HCL 10 MG TAB PO SCH ×4 (07:30→20:49)
[2017-08-26] MEDS: INSULIN REGULAR, HUMAN 100 UNIT/1 ML 3ML VIAL SQ SCH ×4 (07:30→21:00)
[2017-08-26] MEDS: NPH, HUMAN INSULIN ISOPHANE 100 UNIT/1 ML 3ML VIAL SQ SCH ×2 (07:50→16:20)
[2017-08-26] MEDS: VANCOMYCIN 750MG/NS 150ML IVPB 150 ML IV SCH (08:00)
[2017-08-26] MEDS ORDERED: METHYLPREDNISOLONE SOD SUCC 125 MG/2ML VIAL IV ONE (08:30)
[2017-08-26] MEDS ORDERED: DIPHENHYDRAMINE HCL INJ 50 MG/ML VIAL IV ONE (08:30)
[2017-08-26] MEDS: METOPROLOL TARTRATE 50 MG TAB PO SCH (09:00)
[2017-08-26] MEDS: DOCUSATE SODIUM 100 MG CAP PO SCH ×2 (09:00→16:20)
[2017-08-26] MEDS: MUPIROCIN 2% OINT 22 GM TUBE TOP SCH (09:15)
--- NOTE | 2017-08-26 09:17 | Progress Note ---
DATE: August 26, 2017 SUBJECTIVE: Patient was seen at bedside. Having some nausea and swelling to her face and eyes possibly secondary to allergic reaction possibly to IV antibiotics. OBJECTIVE VITAL SIGNS: Afebrile. Vital signs stable. EXTREMITIES: Decreased pain to the left lower extremity. Some necrosis noted to the plantar aspect of the left great toe possibly down to subcutaneous tissue. Still some swelling of the left great toe when compared to the right. LABS: Noted. White blood cell count 10.7. ASSESSMENT: Possible allergic reaction to intravenous antibiotics with resolving cellulitis and grade 2 ulceration, left great toe. PLAN: No debridement was done on this date secondary to the patient feeling somewhat nauseated and swollen. Will discontinue antibiotics. Will start giving her some Benadryl IV and Solu-Medrol. The patient will be seen in the morning. Possible debridement may be done. If she does well, she may be discharged after debridement if okay with Dr. Cuellar. Job#: [id number] BUFFY
[2017-08-26] MEDS: PSYLLIUM 6GM PACKET PO PRN (12:05)
[2017-08-26] MEDS: ONDANSETRON HCL INJ 2 MG/ML VIAL IV PRN (14:55)
[2017-08-26] MEDS: ENOXAPARIN 30 MG/0.3 ML SYR SC SCH (17:00)
[2017-08-26] MEDS ORDERED: LABETALOL HCL 20 ML ONE (20:41)
[2017-08-26 20:58] LABS: ABG PH 7.44 (7.31-7.41)
[2017-08-26 20:59] LABS: ABG PCO2 27 mmHg (41-51); ABG PO2 48 mmHg (80-105)
[2017-08-26 21:00] LABS: ABG HCO3 19 mmol/L (23-28)
[2017-08-26 21:02] LABS: ANION GAP 19.2 mmol/L (8-16); CALCIUM 9.3 mg/dL (8.4-10.2); CREATININE, SERUM 1.54 mg/dL (0.57-1.11); POTASSIUM 4.2 mmol/L (3.5-5.1)
[2017-08-26] MEDS ORDERED: HYDRALAZINE HCL 20 MG/ML VIAL IV PRN (21:30)
--- NOTE | 2017-08-26 21:30 | Progress Note ---
DATE: August 26, 2017 INTERNAL MEDICINE PROGRESS NOTE SUBJECTIVE: Ms. Gordon was eating well. Bowel movement was achieved. Normal room air FIO2. Earlier in the day she said her left side of face and arm got a little bit swollen. There was some muscle tingling and numbness. However, the swelling got better. For this reason, we got infectious disease involved to try to help out with the case due to new symptoms. The patient without jaelyn recurrence during the day. However, she remained on modified antibiotics due to this and because of this she also did not get the debridement done of her foot. REVIEW OF SYSTEMS: No bleeding, no new leg edema. OBJECTIVE VITAL SIGNS: Afebrile. Vital signs noted per electronic record. GENERAL: In no apparent distress, alert and calm right now. HEENT: Normocephalic, atraumatic. NECK: Supple. Throat midline. LUNGS: Bilateral air entry, clear. CARDIOVASCULAR: S1 and S2 with no murmurs, rubs or gallops. ABDOMEN: Soft and nontender. EXTREMITIES: No clubbing or cyanosis. There is edema to that right foot. INTEGUMENT: No rash, no purpura. The wound was covered. LABORATORY DATA: BUN 14 yesterday, creatinine 1.1 yesterday. IMPRESSION AND PLAN 1. Hypertension, urgency versus emergency. 2. Diabetes, recently better controlled but this afternoon very high, poor control. 3. Admit with left hallux severe cellulitis. 4. Acute kidney injury, improved. 5. Episode of spontaneous swelling of left face and left arm per the patient. 6. Continue serial neurologic followup. 7. Control blood pressure. 8. Control glycemia. Orders were given and noted. 9. Follow up closely. 10. Antibiotics will now be adjusted by infectious disease now that the patient has that severe reaction. 11. Will follow along closely. Job#: [id number]
[2017-08-26 21:35] LABS: INR 1.1; PROTHROMBIN TIME 13.4 seconds (11.9-14.5)
[2017-08-26 21:43] LABS: PARTIAL THROMBOPLASTIN TIME 19.8 seconds (23.8-35.5)
--- NOTE | 2017-08-26 21:55 | Consultation ---
DATE OF CONSULTATION: August 26, 2017 REASON FOR CONSULTATION: Infection of the foot. HISTORY OF PRESENT ILLNESS: This is a 57-year-old female who comes into the emergency room with pain in her left great toe. The patient said that 4 days before she came here she stepped on a tac. Left hallux became red and painful and swollen and she had to come to the emergency room. The patient was having severe pain. She came to emergency room and on admission she had creatinine 1.5. Glucose of 264 and her white count 145,000. PAST MEDICAL HISTORY: Diabetes mellitus, hypertension. PAST SURGICAL HISTORY: Denies. ALLERGIES: NKA. SOCIAL HISTORY: Does not smoke, no drug abuse or alcohol use. FAMILY HISTORY: Otherwise unremarkable. The patient was admitted. She was seen by Dr. Ramin Quiroga. The patient was started on IV antibiotic. Apparently, she had some nausea and swelling of her face. Surgery was consulted. Dr. Quiroga noted that no debridement was done, but they plan for her to have it soon. LABORATORY DATA: White count is coming down to 10.7, hemoglobin 8.8. Her sodium 141, potassium 3.9, creatinine 1.10, C-reactive protein 64. The patient had a foot x-ray which showed soft tissue swelling, chronic fracture of the middle toe. PHYSICAL EXAMINATION: GENERAL: She is currently alert, oriented and does not seem in acute distress. VITALS: Stable. Currently afebrile. HEENT: She is not icteric. NECK: Supple. No JVD. No thyromegaly. CHEST: Clear bilaterally. COR: S1 AND S2. No murmur. ABDOMEN: Soft. Bowel sounds present. No tenderness. EXTREMITIES: No edema at the present time. IMPRESSION: Infection of the foot and neuropathy. Apparently, she was on vancomycin and Zosyn, and that is when she got the reaction. I suggest to obtain an MRI. Will change her to meropenem. I agree with surgical debridement for culture and sensitivity. Will discuss with Dr. Quiroga. Will follow. Job#: [id number]
[2017-08-26] MEDS ORDERED: HEPARIN SOD (PORCINE) 5,000 UNIT/ML VIAL IV ONE (22:30)
[2017-08-26] MEDS: ACETAMINOPHEN 325 MG TAB PO PRN (22:30)
--- NOTE | 2017-08-26 22:36 | Diagnostic Imaging Report ---
EXAMINATION: Head CT without contrast. HISTORY:Dizziness, altered mental status. COMPARISON:None. TECHNIQUE: Multidetector axial images were obtained from the foramen magnum to the vertex without contrast. The images were reconstructed using brain and bone algorithms. Thin section brain images were reformatted into coronal and sagittal planes. Intravenous contrast: None IMAGE QUALITY: Acceptable. FINDINGS: Skull/scalp: No lytic or blastic. lesions. No surgical changes. Parenchyma: No abnormal density. No acute hemorrhage, mass or acute major vascular territorial infarct. Arteries: No density suggestive of thrombosis. Dural sinuses: No abnormal density suggestive of thrombosis. Ventricles: No hydrocephalus or displacement. Extra-axial spaces: No abnormal density. Brain volume: Normal for age. Craniocervical junction: No mass, Chiari malformation, or basilar invagination. Sella: No mass. Paranasal/mastoid sinuses: Imaged portions unremarkable. IMPRESSION: No intracranial abnormality. Signed by: Dr. Dianne rFancis M.D. on 08/26/2017 10:33 PM
[2017-08-26] MEDS: CLINDAMYCIN 600MG/D5W 50ML 50 ML IV SCH (23:55)
[2017-08-27] VITALS (7 sets, daily range): BP systolic 122–166; BP diastolic 62–79
[2017-08-27] MEDS: METOPROLOL TARTRATE 50 MG TAB PO SCH ×2 (00:20→21:20)
[2017-08-27] MEDS: HEPARIN 25,000U/0.45% NS 250ML 25,000 UNIT in SODIUM CHLORIDE 0.9% 250ML 0 ML IV SCH ×2 (01:06→22:08)
[2017-08-27 01:16] LABS: CREATINE KINASE MB 1.4 ng/mL (0-5.0)
[2017-08-27] MEDS: MORPHINE SULFATE 2 MG/ML SYR IV PRN ×4 (02:00→20:05)
--- NOTE | 2017-08-27 05:52 | Diagnostic Imaging Report ---
EXAM: CHEST SINGLE (PORTABLE), AP 1 view INDICATION: Cellulitis COMPARISON: None FINDINGS: LINES/TUBES: None LUNGS: Vascular congestion. PLEURA: No effusions or pneumothorax. HEART AND MEDIASTINUM: The heart is within normal size limits for technique. Prominence of the right paratracheal stripe. BONES AND SOFT TISSUES: No acute findings. IMPRESSION: Nonspecific widening of the upper mediastinum. An upright PA and lateral view of the chest is recommended. Signed by: Dr. Charley Petit M.D. on 08/27/2017 5:48 AM
[2017-08-27] MEDS: CLINDAMYCIN 600MG/D5W 50ML 50 ML IV SCH ×3 (06:16→22:07)
[2017-08-27] MEDS: METOCLOPRAMIDE HCL 10 MG TAB PO SCH (07:30)
[2017-08-27] MEDS: NPH, HUMAN INSULIN ISOPHANE 100 UNIT/1 ML 3ML VIAL SQ SCH ×2 (07:30→16:30)
[2017-08-27] MEDS: INSULIN REGULAR, HUMAN 100 UNIT/1 ML 3ML VIAL SQ SCH ×4 (07:30→21:20)
[2017-08-27 07:35] LABS: BASOPHILS % 0.2 % (0.0-1.0); HEMATOCRIT 25.8 % (34.2-44.1); HEMOGLOBIN 8.4 g/dL (12.0-16.0); LYMPHOCYTES # (AUTO) 3.1 (1.0-3.2); LYMPHOCYTES % 18.2 % (18.0-39.1); MEAN CORPUSCULAR HEMOGLOBIN 27.4 pg (28-32); MEAN CORPUSCULAR HGB CONC 32.6 g/dL (31-35); MONOCYTES # (AUTO) 1.3 (0.2-0.8); MONOCYTES % 7.8 % (4.4-11.3); NEUTROPHILS # (AUTO) 12.4 (2.1-6.9); NEUTROPHILS % 72.9 % (38.7-80.0); PLATELET COUNT 362 x10e3/uL (140-360); RED BLOOD COUNT 3.07 x10e6/uL (3.6-5.1); RED CELL DISTRIBUTION WIDTH 13.5 % (11.7-14.4)
--- NOTE | 2017-08-27 07:35 | Progress Note ---
DATE: August 27, 2017 SUBJECTIVE: Patient now on a heparin. Doing better. There is minimal swelling to her left face. Denies any history of fever, chills, nausea, or nausea. OBJECTIVE VITALS: Afebrile. Vital signs stable. EXTREMITIES: Decreased swelling to the left lower extremity. Has some superficial necrosis going down to the plantar aspect of the left great toe. Swelling to the left foot has gone down significantly with decreased pain. Labs noted. Has a last white blood cell count of 7.7. ASSESSMENT: Cellulitis, left great toe, resolving with a grade 1 possibly 2 ulceration, left. PLAN: It is okay for the patient to be discharged if okay with admitting doctor. Patient instructed upon discharge to follow up in the office and walk with the aid of a surgical shoe. Job#: [id number] BUFFY
[2017-08-27 07:53] LABS: ALBUMIN 2.7 g/dL (3.5-5.0); ALBUMIN/GLOBULIN RATIO 0.7 (0.8-2.0); CALCIUM 8.6 mg/dL (8.4-10.2); CREATININE, SERUM 1.37 mg/dL (0.57-1.11); MAGNESIUM 1.5 MG/DL (1.3-2.1); PHOSPHORUS 4.4 MG/DL (2.3-4.7)
[2017-08-27] MEDS ORDERED: METOPROLOL TARTRATE 50 MG TAB PO SCH (09:00)
[2017-08-27] MEDS: LISINOPRIL 10 MG TAB PO SCH (09:39)
[2017-08-27] MEDS: DOCUSATE SODIUM 100 MG CAP PO SCH ×2 (09:39→17:28)
[2017-08-27] MEDS: MUPIROCIN 2% OINT 22 GM TUBE TOP SCH (09:40)
[2017-08-27] MEDS ORDERED: ASPIRIN 325 MG TAB PO SCH (11:30)
[2017-08-27] MEDS: PROMETHAZINE 12.5MG/ NACL 0.9% 12.5 MG/50 ML BAG IV PRN ×2 (12:40→21:25)
[2017-08-27] MEDS: ASPIRIN 81 MG ENTERIC COATED PO SCH (12:45)
--- NOTE | 2017-08-27 12:53 | Diagnostic Imaging Report ---
TECHNIQUE: Magnetic resonance imaging of the LEFT foot was performed WITHOUT injected contrast. HISTORY: Left foot pain, cellulitis COMPARISON: None available. DISCUSSION: Bone: Mild bone marrow edema within the distal phalanx. No T1 replacement or cortical erosion. Subacute-appearing fracture of the middle phalanx of the third toe. Mild edema proximal phalanx of third toe. Joints: No focal cartilage defect. No joint effusion. Soft Tissues: Soft tissue edema throughout the foot. IMPRESSION: Mild bone marrow edema within the distal phalanx of the hallux favored to be reactive. No T1 replacement to confirm osteomyelitis. Signed by: Dr. Pradeep Elizabeth M.D. on 08/27/2017 12:49 PM
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
--- NOTE | 2017-08-27 15:34 | Diagnostic Imaging Report ---
PROCEDURE:X-RAY ABDOMEN - KUB COMPARISON:Chest radiograph 08/27/2017 INDICATIONS:NAUSEA FINDINGS: Moderate amount of stool in the colon. Paucity of small bowel gas which limits evaluation of the small bowel. There are no calcifications projected over the renal shadows, expected course of the ureters or bladder. Phleboliths project over the pelvis. There are no acute osseous abnormalities. CONCLUSION: Nonspecific bowel gas pattern with paucity of small bowel gas which may either be fluid filled or collapsed. Dictated by: Arsalan Watson M.D. on 08/27/2017 at 15:35 Electronically approved by: Arsalan Watson M.D. on 08/27/2017 at 15:35
--- NOTE | 2017-08-27 16:00 | Diagnostic Imaging Report ---
EXAM: VENTILATION PERFUSION LUNG SCAN INDICATION: 57 F with abnormal EKG; cellulitis lower extremity COMPARISON: Chest radiograph 08/27/2017 DISCUSSION: Xenon-133 gas 10.5 mCi was administered via inhalation. Dynamic images of the lungs in the posterior projection were obtained through single breath and washout phases. Distribution of tracer activity is mildly irregular throughout the lungs. Washout is diffusely delayed without evidence of air trapping. Perfusion images of the lungs in multiple projections were obtained following intravenous administration of approximately 6 mCi of Tc-99m MAA. Distribution of tracer is mildly irregular throughout the lungs. There are no segmental perfusion defects of any size. The contours of the lungs are well demarcated. The cardiac silhouette is unremarkable. IMPRESSION: 1. Scan findings represent a VERY LOW probability for acute pulmonary embolic disease based on the PIOPED II criteria. 2. Scan findings are compatible with diffuse parenchymal and/or obstructive lung disease. Signed by: Dr. Mima Pinedo M.D. on 08/27/2017 3:56 PM
[2017-08-28] VITALS (7 sets, daily range): BP systolic 136–166; BP diastolic 63–76
[2017-08-28] MEDS: ACETAMINOPHEN 325 MG TAB PO PRN ×2 (02:58→11:53)
[2017-08-28] MEDS: PROMETHAZINE 12.5MG/ NACL 0.9% 12.5 MG/50 ML BAG IV PRN ×2 (03:03→19:19)
[2017-08-28] MEDS: CLINDAMYCIN 600MG/D5W 50ML 50 ML IV SCH (05:34)
[2017-08-28 06:48] LABS: HEMATOCRIT 25.8 % (34.2-44.1); HEMOGLOBIN 8.2 g/dL (12.0-16.0); MEAN CORPUSCULAR HGB CONC 31.8 g/dL (31-35); MEAN CORPUSCULAR VOLUME 84.9 fL (81-99); PLATELET COUNT 377 x10e3/uL (140-360); RED BLOOD COUNT 3.04 x10e6/uL (3.6-5.1); RED CELL DISTRIBUTION WIDTH 13.6 % (11.7-14.4)
[2017-08-28 07:09] LABS: ALBUMIN 2.7 g/dL (3.5-5.0); ALBUMIN/GLOBULIN RATIO 0.7 (0.8-2.0); CALCIUM 8.5 mg/dL (8.4-10.2); CHOL/HDL RATIO 2.5 (3.0-3.6); CREATININE, SERUM 1.31 mg/dL (0.57-1.11)
[2017-08-28 07:30] LABS: THYROID STIMULATING HORMONE 1.031 uIU/mL (0.350-4.940)
[2017-08-28] MEDS: INSULIN REGULAR, HUMAN 100 UNIT/1 ML 3ML VIAL SQ SCH ×4 (07:30→20:26)
[2017-08-28] MEDS: NPH, HUMAN INSULIN ISOPHANE 100 UNIT/1 ML 3ML VIAL SQ SCH ×2 (07:30→16:30)
--- NOTE | 2017-08-28 08:04 | Progress Note ---
DATE: August 28, 2017 SUBJECTIVE: Patient is doing better as far as her foot. Still having some nausea and vomiting. OBJECTIVE VITALS: The patient has a fever of 101.1, pulse rate 86, respirations 22, blood pressure 152/65, O2 saturation 91%. EXTREMITIES: The left foot is looking much better. There is a lot less pain when palpating the plantar and dorsal aspect of the left great toe. No fluctuance felt. Decreased cellulitis. Edema is also resolving significantly when compared to the contralateral side. Has a superficial necrosis noted to the plantar aspect of the left great toe, which is measuring 1 x 2.5 cm in diameter. LABS: Show a white blood cell count of 15.99, hemoglobin 8.2. ASSESSMENT: Resolving cellulitis, left lower great toe with a grade 1 possibly grade 2 ulcer. PLAN: Will leave the ulcer alone for now. Will continue IV antibiotics. Continue local wound care. Continue offloading. Job#: [id number] NE
[2017-08-28 08:44] LABS: ANISOCYTOSIS SLIGHT; EOSINOPHILS % (MANUAL) 1 % (0-7); HYPOCHROMASIA SLIGHT; LYMPHOCYTES % (MANUAL) 24 % (19-48); MONOCYTES % (MANUAL) 4 % (3.4-9.0); NEUTROPHILS % (MANUAL) 68 % (40-74); POIKILOCYTOSIS SLIGHT
[2017-08-28 08:45] LABS: PLATELET ESTIMATE ADEQUATE; PLATELET MORPHOLOGY COMMENT NORMAL; RBC MORPHOLOGY COMMENT ABNORMAL
[2017-08-28] MEDS: METOPROLOL TARTRATE 50 MG TAB PO SCH ×2 (09:38→20:27)
[2017-08-28] MEDS: DOCUSATE SODIUM 100 MG CAP PO SCH ×2 (09:38→17:55)
[2017-08-28] MEDS: ASPIRIN 81 MG ENTERIC COATED PO SCH (09:38)
[2017-08-28] MEDS: LISINOPRIL 10 MG TAB PO SCH (09:39)
[2017-08-28] MEDS: MORPHINE SULFATE 2 MG/ML SYR IV PRN ×2 (11:50→19:19)
[2017-08-28] MEDS: CLOPIDOGREL BISULFATE 75 MG TAB PO SCH (12:46)
[2017-08-28] MEDS: DOXYCYCLINE HYCLATE TABLET 100 MG TAB PO SCH ×2 (14:00→20:27)
[2017-08-29] VITALS (7 sets, daily range): BP systolic 156–187; BP diastolic 68–90
[2017-08-29] MEDS: MORPHINE SULFATE 2 MG/ML SYR IV PRN ×2 (00:46→19:47)
[2017-08-29 06:54] LABS: BASOPHILS # (AUTO) 0.1 (0.0-0.1); BASOPHILS % 0.5 % (0.0-1.0); EOSINOPHILS # (AUTO) 0.3 (0.0-0.4); EOSINOPHILS % 1.8 % (0.0-6.0); HEMATOCRIT 25.5 % (34.2-44.1); HEMOGLOBIN 8.1 g/dL (12.0-16.0); LYMPHOCYTES # (AUTO) 4.4 (1.0-3.2); LYMPHOCYTES % 30.2 % (18.0-39.1); MEAN CORPUSCULAR HEMOGLOBIN 26.8 pg (28-32); MEAN CORPUSCULAR HGB CONC 31.8 g/dL (31-35); MEAN CORPUSCULAR VOLUME 84.4 fL (81-99); MONOCYTES # (AUTO) 1.6 (0.2-0.8); MONOCYTES % 10.8 % (4.4-11.3); NEUTROPHILS # (AUTO) 8.1 (2.1-6.9); NEUTROPHILS % 56.1 % (38.7-80.0); PLATELET COUNT 391 x10e3/uL (140-360); RED BLOOD COUNT 3.02 x10e6/uL (3.6-5.1)
[2017-08-29 07:20] LABS: ANION GAP 9.8 mmol/L (8-16); CALCIUM 8.5 mg/dL (8.4-10.2); CREATININE, SERUM 1.15 mg/dL (0.57-1.11); POTASSIUM 3.8 mmol/L (3.5-5.1)
[2017-08-29] MEDS: INSULIN REGULAR, HUMAN 100 UNIT/1 ML 3ML VIAL SQ SCH ×4 (07:30→22:15)
[2017-08-29] MEDS: NPH, HUMAN INSULIN ISOPHANE 100 UNIT/1 ML 3ML VIAL SQ SCH ×2 (07:30→16:30)
[2017-08-29 07:38] LABS: BAND NEUTROPHILS % (MANUAL) 1 %; EOSINOPHILS % (MANUAL) 2 % (0-7); LYMPHOCYTES % (MANUAL) 23 % (19-48); MONOCYTES % (MANUAL) 10 % (3.4-9.0); NEUTROPHILS % (MANUAL) 64 % (40-74); PLATELET ESTIMATE ADEQUATE; PLATELET MORPHOLOGY COMMENT NORMAL
[2017-08-29 07:39] LABS: RBC MORPHOLOGY COMMENT NORMAL
--- NOTE | 2017-08-29 09:16 | Progress Note ---
DATE: August 29, 2017 SUBJECTIVE: Patient doing somewhat better, still having some nausea and mild shortness of breath. Denies any history of fever, chills or vomiting. OBJECTIVE: Vitals: Afebrile. Pulse rate 73, respirations 20, blood pressure 165/76, O2 saturation 93%. Labs show a white blood cell count of 14.45, hemoglobin 8.1, hematocrit 25.5, with a platelet count of 391. Left lower extremity looking better. Decreased swelling. Decreased pain to the plantar aspect of the left great toe. Necrotic scab starting to become well defined with no fluctuance felt upon palpation. Pedal pulses are palpable. ASSESSMENT: Resolving cellulitis with a grade-2 ulcer, left foot, with edema and pain. PLAN: Continue IV antibiotics. Continue local wound care. Continue offloading as best as possible. Upon discharge, patient to follow up in the office. Job#: [id number]
[2017-08-29] MEDS: ASPIRIN 81 MG ENTERIC COATED PO SCH (09:44)
[2017-08-29] MEDS: DOCUSATE SODIUM 100 MG CAP PO SCH ×2 (09:44→17:27)
[2017-08-29] MEDS: LISINOPRIL 10 MG TAB PO SCH (09:45)
[2017-08-29] MEDS: METOPROLOL TARTRATE 50 MG TAB PO SCH ×2 (09:45→20:40)
[2017-08-29] MEDS: DOXYCYCLINE HYCLATE TABLET 100 MG TAB PO SCH ×2 (09:45→22:13)
[2017-08-29] MEDS: CLOPIDOGREL BISULFATE 75 MG TAB PO SCH (09:45)
[2017-08-29] MEDS: PROMETHAZINE 12.5MG/ NACL 0.9% 12.5 MG/50 ML BAG IV PRN ×2 (12:20→18:01)
[2017-08-29] MEDS: ACETAMINOPHEN/CODEINE 300MG - 30MG TAB PO PRN (12:20)
[2017-08-29] MEDS: PSYLLIUM 6GM PACKET PO PRN (15:12)
[2017-08-29] MEDS: ENOXAPARIN SOD INJ 40 MG/0.4 ML SYR SC SCH (22:12)
[2017-08-30] VITALS (9 sets, daily range): BP systolic 154–196; BP diastolic 65–89
[2017-08-30] MEDS: PROMETHAZINE 12.5MG/ NACL 0.9% 12.5 MG/50 ML BAG IV PRN ×4 (00:33→18:00)
[2017-08-30] MEDS: ACETAMINOPHEN/CODEINE 300MG - 30MG TAB PO PRN ×3 (00:33→18:20)
[2017-08-30] MEDS: HYDRALAZINE HCL 20 MG/ML VIAL IV PRN ×2 (00:35→06:16)
[2017-08-30] MEDS: MORPHINE SULFATE 2 MG/ML SYR IV PRN (06:15)
[2017-08-30 07:22] LABS: BASOPHILS # (AUTO) 0.1 (0.0-0.1); BASOPHILS % 0.5 % (0.0-1.0); EOSINOPHILS # (AUTO) 0.2 (0.0-0.4); EOSINOPHILS % 1.6 % (0.0-6.0); HEMATOCRIT 27.3 % (34.2-44.1); HEMOGLOBIN 8.6 g/dL (12.0-16.0); LYMPHOCYTES # (AUTO) 4.6 (1.0-3.2); LYMPHOCYTES % 32.3 % (18.0-39.1); MEAN CORPUSCULAR HEMOGLOBIN 26.8 pg (28-32); MEAN CORPUSCULAR HGB CONC 31.5 g/dL (31-35); MONOCYTES # (AUTO) 1.2 (0.2-0.8); MONOCYTES % 8.3 % (4.4-11.3); NEUTROPHILS % 56.6 % (38.7-80.0); PLATELET COUNT 394 x10e3/uL (140-360); RED BLOOD COUNT 3.21 x10e6/uL (3.6-5.1); RED CELL DISTRIBUTION WIDTH 14.2 % (11.7-14.4)
[2017-08-30] MEDS: INSULIN REGULAR, HUMAN 100 UNIT/1 ML 3ML VIAL SQ SCH ×4 (07:30→21:00)
[2017-08-30] MEDS: NPH, HUMAN INSULIN ISOPHANE 100 UNIT/1 ML 3ML VIAL SQ SCH ×2 (07:30→16:30)
[2017-08-30 07:39] LABS: ANION GAP 11.7 mmol/L (8-16); CREATININE, SERUM 0.98 mg/dL (0.57-1.11); POTASSIUM 3.7 mmol/L (3.5-5.1)
[2017-08-30] MEDS ORDERED: LISINOPRIL 20 MG TAB PO SCH (09:00)
[2017-08-30] MEDS: DOCUSATE SODIUM 100 MG CAP PO SCH ×2 (09:00→17:00)
[2017-08-30] MEDS: CLOPIDOGREL BISULFATE 75 MG TAB PO SCH (09:00)
[2017-08-30] MEDS: DOXYCYCLINE HYCLATE TABLET 100 MG TAB PO SCH (09:00)
[2017-08-30] MEDS: ASPIRIN 81 MG ENTERIC COATED PO SCH (09:00)
[2017-08-30] MEDS ORDERED: LISINOPRIL 10 MG TAB PO SCH (09:00)
[2017-08-30] MEDS: METOPROLOL TARTRATE 50 MG TAB PO SCH ×2 (09:00→21:10)
--- NOTE | 2017-08-30 13:15 | Progress Note ---
DATE: August 30, 2017 PODIATRY PROGRESS NOTE SUBJECTIVE: Patient seen at bedside, accompanied by . Once again swollen to her face and eyebrows. Is having some pain to the left lower extremity but denies any history of fever, chills, nausea or vomiting. OBJECTIVE VITAL SIGNS: Afebrile. Vital signs stable. EXTREMITIES: There is some discomfort to the left great toe. Some mild cellulitis present. No fluctuance felt. LABS: Show a white blood cell count of 14.1. ASSESSMENT: Cellulitis with pain left lower extremity. PLAN: Will continue local wound care. Will discontinue the morphine sulfate. Continue offloading. Will continue to follow. Patient on doxycycline 100 mg p.o. b.i.d. Job#: [id number] JOSE
--- NOTE | 2017-08-30 14:46 | Progress Note ---
DATE SUBJECTIVE: Ms. Gordon continued to do well. She has no new complaints. REVIEW OF SYSTEMS HEENT: Negative. PULMONARY: Negative. CARDIAC: Negative. : Negative. She continued to have nausea and vomiting. PHYSICAL EXAMINATION GENERAL: She is alert and oriented, does not seem to be in acute distress. VITAL SIGNS: Stable, currently afebrile. HEENT: She is not icteric. NECK: Supple. CHEST: Clear. COR: S1 and S2. ABDOMEN: Soft. Bowel sounds present. EXTREMITIES: No edema. IMPRESSION AND PLAN 1. Nausea and vomiting. 2. Foot osteo-cellulitis, resolved currently. Discontinue antibiotic as I am concerned this may be adding to her nausea. It is better. Job#: [id number] ANGEL
[2017-08-30] MEDS: METOCLOPRAMIDE HCL 10 MG TAB PO SCH ×2 (16:30→21:00)
[2017-08-30] MEDS: ENOXAPARIN SOD INJ 40 MG/0.4 ML SYR SC SCH (17:00)
[2017-08-30] MEDS: LISINOPRIL 20 MG TAB PO SCH (17:25)
--- NOTE | 2017-08-30 18:15 | Diagnostic Imaging Report ---
EXAMINATION: CHEST SINGLE (PORTABLE) INDICATION: \S\sob, crackles COMPARISON: Chest radiograph 08/27/2017 FINDINGS: AP view Bones and soft tissues are unchanged. See impression. IMPRESSION: 1. Mild interstitial edema and small bilateral pleural effusions. 2. Persistent prominence of the right paratracheal stripe which could reflect mediastinal lipomatosis but is otherwise nonspecific. Recommend upright PA and lateral chest radiograph. Signed by: DR. Arsalan Watson MD on 08/30/2017 6:12 PM
[2017-08-30] MEDS ORDERED: DIPHENHYDRAMINE HCL INJ 50 MG/ML VIAL IV PRN (19:00)
[2017-08-30] MEDS: HYDRALAZINE HCL 25 MG TAB PO SCH (21:10)
[2017-08-31] VITALS: BP 177/77
[2017-08-31] MEDS: HYDRALAZINE HCL 20 MG/ML VIAL IV PRN (02:38)
[2017-08-31] MEDS: PROMETHAZINE 12.5MG/ NACL 0.9% 12.5 MG/50 ML BAG IV PRN ×2 (02:39→13:10)
[2017-08-31] MEDS: ACETAMINOPHEN/CODEINE 300MG - 30MG TAB PO PRN (02:39)
[2017-08-31 04:00] VITALS: BP 141/65
[2017-08-31 07:25] VITALS: BP 165/74
[2017-08-31] MEDS: NPH, HUMAN INSULIN ISOPHANE 100 UNIT/1 ML 3ML VIAL SQ SCH (07:30)
[2017-08-31] MEDS: METOCLOPRAMIDE HCL 10 MG TAB PO SCH ×2 (07:30→12:00)
[2017-08-31] MEDS: INSULIN REGULAR, HUMAN 100 UNIT/1 ML 3ML VIAL SQ SCH ×2 (07:30→11:30)
[2017-08-31 08:00] VITALS: BP 165/74
[2017-08-31 08:03] LABS: BASOPHILS # (AUTO) 0.1 (0.0-0.1); BASOPHILS % 0.5 % (0.0-1.0); EOSINOPHILS # (AUTO) 0.2 (0.0-0.4); EOSINOPHILS % 1.8 % (0.0-6.0); HEMATOCRIT 27.2 % (34.2-44.1); HEMOGLOBIN 8.9 g/dL (12.0-16.0); LYMPHOCYTES # (AUTO) 4.1 (1.0-3.2); LYMPHOCYTES % 31.5 % (18.0-39.1); MEAN CORPUSCULAR HEMOGLOBIN 27.1 pg (28-32); MEAN CORPUSCULAR HGB CONC 32.7 g/dL (31-35); MEAN CORPUSCULAR VOLUME 82.7 fL (81-99); MONOCYTES # (AUTO) 1.2 (0.2-0.8); NEUTROPHILS # (AUTO) 7.3 (2.1-6.9); NEUTROPHILS % 56.6 % (38.7-80.0); PLATELET COUNT 437 x10e3/uL (140-360); RED BLOOD COUNT 3.29 x10e6/uL (3.6-5.1); RED CELL DISTRIBUTION WIDTH 13.6 % (11.7-14.4)
[2017-08-31] MEDS: DOCUSATE SODIUM 100 MG CAP PO SCH (09:00)
[2017-08-31] MEDS: ASPIRIN 81 MG ENTERIC COATED PO SCH (09:00)
[2017-08-31] MEDS: METOPROLOL TARTRATE 50 MG TAB PO SCH (09:00)
[2017-08-31] MEDS: HYDRALAZINE HCL 25 MG TAB PO SCH (09:00)
[2017-08-31] MEDS: LISINOPRIL 20 MG TAB PO SCH (09:00)
[2017-08-31] MEDS: CLOPIDOGREL BISULFATE 75 MG TAB PO SCH (09:00)
[2017-08-31 09:01] LABS: ANION GAP 12.7 mmol/L (8-16); CREATININE, SERUM 1.11 mg/dL (0.57-1.11); POTASSIUM 3.7 mmol/L (3.5-5.1)
[2017-08-31 10:23] LABS: ALBUMIN 2.7 g/dL (3.5-5.0); ALBUMIN/GLOBULIN RATIO 0.6 (0.8-2.0); ANION GAP 12.8 mmol/L (8-16); CALCIUM 8.9 mg/dL (8.4-10.2); CREATININE, SERUM 1.11 mg/dL (0.57-1.11); POTASSIUM 3.8 mmol/L (3.5-5.1)
[2017-08-31 12:00] VITALS: BP 163/71
--- NOTE | 2017-08-31 13:40 | Progress Note ---
DATE: SUBJECTIVE: Ms. Gordon continues to do well. There are no new complaints. LABORATORY DATA: Reviewed. Her white count today is 12.9 and hemoglobin 8.9. PHYSICAL EXAMINATION GENERAL: She is currently alert and oriented, does not seem to be in acute distress. VITAL SIGNS: Stable, currently afebrile. HEENT: She is not icteric. NECK: Supple. CHEST: Clear. HEART: S1 and S2. No murmur. ABDOMEN: Soft. IMPRESSION AND PLAN 1. Nausea, seems to be better. 2. Leukocytosis, seems to be better. 3. We will follow with you. Job#: [id number] PAT
[2017-08-31] MEDS ORDERED: PLAVIX75 MG PO (15:08)
[2017-08-31] MEDS ORDERED: ASPIRIN81 MG PO (15:08)
[2017-08-31] MEDS ORDERED: HYDRALAZINE HCL25 MG PO (15:09)
[2017-08-31] MEDS ORDERED: TYLENOL WITH C1 EACH PO (15:09)
[2017-08-31] MEDS ORDERED: METOPROLOL SUCC50 MG PO (15:10)
[2017-08-31] MEDS ORDERED: LISINOPRIL10 MG PO (15:10)
--- NOTE | 2017-08-31 15:17 | Discharge Summary ---
PRIMARY CARE DOCTOR: Dr. Viraj Lomeli. FINAL DIAGNOSIS: Left foot diabetic cellulitis, resolved. SECONDARY DIAGNOSIS 1. Chronic nausea, possibly due to gastroparesis. 2. Chronic anemia. 3. Acute renal failure, resolved. 4. Diabetes. 5. Uncontrolled hypertension. CONSULTANTS 1. Dr. Foster, cardiology. 2. Dr. Mckeon, infectious disease. 3. Dr. Ramin Quiroga, podiatry. PROCEDURES/STUDIES PERFORMED 1. Foot magnetic resonance imaging was negative for osteomyelitis. 2. Ventilation/perfusion scan was low probability. 3. Venous Doppler was negative for deep vein thrombosis. 4. Head computed tomography did not show any acute disease. 5. Midline placement. HISTORY: Per H\T\P. HOSPITAL COURSE: Patient was admitted, underwent a course of IV antibiotics. There was SOME CONCERN THAT SHE COULD BE ALLERGIC TO VANCOMYCIN. Subsequently, she was switched to IV clindamycin, and finally she finished her course with p.o. doxycycline per infectious disease recommendation. The patient has been afebrile for the last 3 days now and her leukocytosis is improving, now down to 12. Initially we were thinking of debridement, but since she continues to improve, this was not necessary. The patient will follow up with her own [facility] neurology professor. There is also chronic nausea. Potentially this could be due to gastroparesis. A KUB was unremarkable. However, patient was hesitant to take Reglan because her previous physician told her so. On admission her creatinine was 1.53. It went up as high as 1.96. At the time of discharge, it is 1.11. Four days prior to discharge, patient had an event where she had a left-sided headache. Patient was short of breath. Her blood pressure was 200 systolic. Patient was tachycardic as well. At the time, EKG shows sinus tachycardia with ST depression. Initially it was thought this could be due to a venous thrombotic embolism. However, workup was negative for that. Therefore, once her fever has resolved, Cardiology recommended a left heart catheterization. However, patient stated that since she has been in the hospital for 12 days now and she is finally feeling better, she would like to go home first to recover. However, she will follow up with [facility] skiver operator. For now she will go home on aspirin and Plavix. I will also update her primary care doctor. Patient was seen and examined today. It took 35 minutes total to discharge this patient today. I have discussed this case with the skiver operator today as well. CONDITION ON DISCHARGE: Stable. DISCHARGE MEDICATIONS: Please see medication reconciliation form. Of note, I have also discussed with infectious disease specialist today as well. AMINAH ROBBINS M.D. Job#: [id number] EV cc: VIRAJ LOMELI MD MTDD
[2017-08-31 16:00] VITALS: BP 168/72
--- NOTE | 2017-08-31 16:13 | Progress Note ---
DATE: August 31, 2017 PODIATRY PROGRESS NOTE SUBJECTIVE: Patient seen at bedside. Ready to go home. Decreased pain to the left lower extremity. OBJECTIVE VITAL SIGNS: Afebrile. Vital signs stable. EXTREMITIES: Decreased pain to the left lower extremity. Decreased edema and cellulitis. Superficial ulceration noted to the plantar aspect left great toe. ASSESSMENT: Grade 2 ulcer left foot. Resolving cellulitis secondary to puncture wound with diabetic neuropathy. PLAN: Okay to be discharged. Instructed to follow up in the office. Continue minimal weightbearing. Not to walk barefoot. Patient discharged on this date. Job#: [id number] EV
== END 2017-08-31 15:38 | disposition home or self-care (01) | DRG 638 ==
LOC: ER 16:21 → ERHOLD 19:30 → MED/SURG3 20:44
PROVIDERS: ADMIT Internal Medicine; ATTEND Internal Medicine
PROC: 02HV33Z Insertion of Infusion Device into Superior Vena Cava, Percutaneous Approach (ICD-10-PCS; principal; 2017-08-25)
PROC: B5181ZA Fluoroscopy of Superior Vena Cava using Low Osmolar Contrast, Guidance (ICD-10-PCS; 2017-08-25)
DX: E11.621 Type 2 diabetes mellitus with foot ulcer (principal); I13.0 Hypertensive heart and chronic kidney disease with heart failure and stage 1 through stage 4 chronic kidney disease, or unspecified chronic kidney disease; L97.522 Non-pressure chronic ulcer of other part of left foot with fat layer exposed; K31.84 Gastroparesis; N17.9 Acute kidney failure, unspecified; E11.40 Type 2 diabetes mellitus with diabetic neuropathy, unspecified; E11.65 Type 2 diabetes mellitus with hyperglycemia; N18.3 Chronic kidney disease, stage 3 (moderate); E83.42 Hypomagnesemia; E11.43 Type 2 diabetes mellitus with diabetic autonomic (poly)neuropathy; Z79.4 Long term (current) use of insulin; S91.332A Puncture wound without foreign body, left foot, initial encounter; W45.0XXA Nail entering through skin, initial encounter; S92.502A Displaced unspecified fracture of left lesser toe(s), initial encounter for closed fracture; I25.10 Atherosclerotic heart disease of native coronary artery without angina pectoris; D63.8 Anemia in other chronic diseases classified elsewhere; T36.95XA Adverse effect of unspecified systemic antibiotic, initial encounter
CPT/HCPCS: 36415; 36600; 70450; 71045; 74018; 78582; 80048; 80053; 80061; 80202; 82550; 82553; 82805; 82948; 83036; 83735; 83880; 84100; 84443; 84484; 85007; 85025; 85027; 85379; 85610; 85651; 85730; 86140; 93005; 93306; 93925; 93970; 93971; 96361; 96365; 96366; 96367; 96372; 99284; A9540; A9558; J0360; J1200; J1644; J1650; J2270; J2405; J2543; J2550; J2930; J3370; J7030; J7050; J7799

== ENCOUNTER 2018-08-10 16:44 | Emergency (ER) | payer OTHER ==
[~2018-08-10 16:44] MED LIST: ASPIRIN81 MG PO; GABAPENTIN400 MG PO; HUMALOG MI100 UNIT/5; HYDRALAZINE HCL25 MG PO; LISINOPRIL10 MG PO; LYRICA25 MG PO; METOPROLOL SUCC50 MG PO; NOVOLOG100 UNIT/1; PLAVIX75 MG PO; SIMVASTATIN10 MG PO; TYLENOL WITH C1 EACH PO
--- OUTSIDE RECORDS SUMMARY | 2018-08-10 16:47 | XMS REPORT | Clinical Summary ---
Author Author [facility] Address Unknown Phone Unavailable Care Team Providers Care Air Intelligence Specialist Name Role Phone Viraj Lomeli MD PCP Unavailable Allergies Comments Active Allergy Reactions Severity Noted Date Cough Lisinopril 12/10/2017 Medications End Date Status Medication Sig Dispensed Refills Start Date Active polyethylene glycol Take 17 g by 30 each 0 (GLYCOLAX) 17 gram packet mouth daily 5 as needed (Constipation ). Active cilostazol (PLETAL) 50 MG Take 50 mg by 0 tablet mouth 2 (two) 8 times daily. Active clopidogrel (PLAVIX) 75 Take 75 mg by 0 mg tablet mouth daily. 8 Active DULoxetine (CYMBALTA) 60 Take 60 mg by 0 MG capsule mouth. 8 Active fluticasone (FLONASE) 50 USE 2 SPRAYS 0 mcg/actuation nasal spray IN EACH 7 NOSTRIL DAILY Active HYDROcodone-acetaminophen Take 1 tablet 0 (NORCO 5-325) 5-325 mg by mouth. 8 per tablet Active pioglitazone (ACTOS) 15 Take 15 mg by 0 MG tablet mouth. Active psyllium husk (KONSYL) 6 Take by 0 gram PwPk packet mouth. Active rOPINIRole (REQUIP) 1 MG Take 1 mg by 0 tablet mouth. 8 Active temazepam (RESTORIL) 7.5 Take 7.5 mg 0 MG capsule by mouth. 8 Active TiZANidine (ZANAFLEX) 6 Take 6 mg by 0 MG capsule mouth. Active torsemide (DEMADEX) 20 MG Take 20 mg by 0 tablet mouth. 8 Active dulaglutide (TRULICITY) INJECT 0.75MG 0 0.75 mg/0.5 mL PnIj INTO THE SKIN 8 ONCE A WEEK Active valsartan (DIOVAN) 320 MG Take 320 mg 0 tablet by mouth. Active aspirin 81 MG EC tablet Take 81 mg by 0 mouth. 8 Active atorvastatin (LIPITOR) 40 Take 40 mg by 0 MG tablet mouth. 8 Active hydroCHLOROthiazide Take 12.5 mg 0 (MICROZIDE) 12.5 mg by mouth. capsule Active insulin aspart U-100 Inject 25 0 (NOVOLOG FLEXPEN U-100 units before 8 INSULIN) 100 unit/mL InPn each of 3 meals. Active insulin detemir U-100 INJECT 110 0 (LEVEMIR FLEXTOUCH U-100 UNITS SUB-Q 8 INSULN) 100 unit/mL (3 ONCE DAILY mL) InPn injection Active pregabalin (LYRICA) 200 TAKE 1 0 MG capsule CAPSULE BY 8 MOUTH TWICE A DAY FOR 2 WEEKS THEN 1 CAPSULE BY MOUTH 3 TIMES A DAY Active omeprazole (PRILOSEC) 20 Take 20 mg by 0 MG capsule mouth. 8 Active metoprolol (LOPRESSOR) Take 100 mg 0 100 MG tablet by mouth 2 8 (two) times daily. 02/04/2018 Discontinued atorvastatin (LIPITOR) 40 Take 40 mg by 0 MG tablet mouth. 6 12/12/2017 Discontinued baclofen (LIORESAL) 10 MG Take 10 mg by 0 tablet mouth 3 7 (three) times daily as needed . 12/12/2017 Discontinued beta carotene 72561 UNIT Take 25,000 0 capsule Units by mouth daily . 12/12/2017 Discontinued docosahexanoic acid 300 Take by 0 mg Cap mouth. 02/04/2018 Discontinued hydroCHLOROthiazide Take 12.5 mg 0 (MICROZIDE) 12.5 mg by mouth 5 capsule every morning . 02/04/2018 Discontinued insulin detemir (LEVEMIR INJECT 110 0 FLEXTOUCH) 100 unit/mL (3 UNITS DAILY. 6 mL) InPn injection 06/04/2018 Discontinued lisinopril Take 40 mg by 0 (PRINIVIL,ZESTRIL) 40 MG mouth. 7 tablet 02/04/2018 Discontinued insulin aspart (NOVOLOG 30 Units 3 0 FLEXPEN) 100 unit/mL InPn (three) times 6 daily before meals INJECT 30 UNITS BEFORE EACH OF THE 3 MEALS. 02/04/2018 Discontinued omeprazole (PRILOSEC) 40 Take 40 mg by 0 MG capsule mouth daily . 12/10/2017 Discontinued ondansetron (ZOFRAN, Take 4 mg by 0 HYDROCHLORIDE,) 4 MG mouth 3 tablet (three) times daily as needed . 02/04/2018 Discontinued pregabalin (LYRICA) 200 Take 200 mg 0 MG capsule by mouth 3 6 (three) times daily . 11/08/2017 mINOCYCLine Take 1 14 capsule 0 (MINOCIN,DYNACIN) 100 MG capsule (100 8 capsule mg total) by mouth 2 (two) times daily for 7 days. 11/08/2017 amoxicillin-clavulanate Take 1 tablet 14 tablet 0 (AUGMENTIN) 875-125 mg by mouth 2 8 per tablet (two) times daily for 7 days. 11/08/2017 povidone-iodine Apply 472 mL 0 (BETADINE) 10 % external topically 2 8 solution (two) times daily for 7 days [place] 2nd and 3rd toes on left foot. 02/04/2018 Discontinued aspirin 81 MG EC tablet Take 81 mg by 0 mouth daily. 06/04/2018 Discontinued carvedilol (COREG) 25 MG Take 25 mg by 0 tablet mouth. 8 06/04/2018 Discontinued hydrALAZINE (APRESOLINE) Take 50 mg by 0 50 MG tablet mouth. 02/18/2018 potassium chloride SA Take 10 mEq 0 (K-DUR,KLOR-CON) 10 MEQ by mouth. 8 tablet 06/04/2018 Discontinued furosemide (LASIX) 20 MG Take 20 mg by 6 tablet mouth daily. 8 06/11/2018 benzonatate (TESSALON) Take 1 20 capsule 0 100 MG capsule capsule (100 9 mg total) by mouth 3 (three) times daily for 7 days. 07/04/2018 hydrALAZINE (APRESOLINE) Take 1 tablet 60 tablet 0 10 MG tablet (10 mg total) 9 by mouth 2 (two) times daily for 30 days. 06/14/2018 acetaminophen-codeine Take 1 tablet 40 tablet 0 (TYLENOL #3) 300-30 mg by mouth 9 per tablet every 6 (six) hours for 10 days. Max Daily Amount: 4 tablets 06/14/2018 albuterol-ipratropium Inhale 1 puff 1 Inhaler 0 (COMBIVENT RESPIMAT) by mouth via 9 20-100 mcg/actuation Mist inhaler every inhaler 6 (six) hours as needed for Wheezing or Shortness of Breath for up to 10 days. Active Problems Problem Noted Date RSV (respiratory syncytial virus pneumonia) 06/04/2018 Cough 06/01/2018 Fever and chills 06/01/2018 Pneumonia of both upper lobes due to infectious organism 06/01/2018 Diabetic polyneuropathy associated with type 2 diabetes mellitus 12/10/2017 Chronic diastolic CHF (congestive heart failure) 07/28/2016 DM type 2 (diabetes mellitus, type 2) 07/28/2016 Overview: a1c 13.3 (07/2016) Pulmonary hypertension 07/28/2016 Diabetic gastroparesis 02/10/2015 Intractable vomiting 02/08/2015 Liver mass 01/18/2014 Diabetes type 2, uncontrolled 01/18/2014 Anemia 05/18/2013 Overview: Mixed type Asplenia 05/10/2013 Chronic back pain 05/10/2013 HTN (hypertension) 05/10/2013 Resolved Problems Problem Noted Date Resolved Date Foot infection 12/10/2017 06/01/2018 Cellulitis and abscess of foot 12/10/2017 12/10/2017 Cellulitis of left foot 12/10/2017 06/01/2018 Gangrene of toe of left foot 11/01/2017 12/10/2017 Acute osteomyelitis of toe of left foot 10/30/2017 11/01/2017 Shortness of breath 10/23/2017 12/10/2017 Pain of left calf 07/28/2016 12/10/2017 Moderate malnutrition 02/10/2015 06/01/2018 Constipation 02/10/2015 06/01/2018 Abdominal fluid collection 02/08/2015 12/10/2017 Nausea with vomiting 01/26/2015 06/01/2018 Incisional infection, initial encounter 01/25/2015 12/10/2017 Abdominal pain 01/17/2015 12/10/2017 Chronic cholecystitis with calculus 01/15/2015 12/10/2017 Right sided abdominal pain 01/14/2015 12/10/2017 Gallstones 05/11/2013 06/01/2018 Encounters Care Team Description Date Type Specialty Luis Miguel Hernandez MD Ali, Sanah Qasam, MD Gonzalez, Adriana, MD Pneumonia of both upper lobes due to infectious organism (HCC) (Primary Dx); Hyperglycemia, unspecified; Fever and chills; Weakness; Chronic congestive heart failure, unspecified heart failure type (HCC) 06/01/2018 Hospital Cardiology - Encounter 06/04/2018 06/01/2018 Orders Only General Internal Medicine 06/01/2018 Travel Alek Harrison MD Laceration of right palm, initial encounter (Primary Dx) 02/17/2018 Emergency Emergency Medicine Marvin Mackay MD Foot swelling (Primary Dx) 02/04/2018 Emergency Emergency Medicine Brian Baca MD Rehman, Javed, MD 12/10/2017 [facility] General Internal Medicine - Encounter 12/12/2017 Brijesh Carrasquillo MD Alagugurusamy, Rajkumar, MD Vincent, Toicha Ann, MD Acute osteomyelitis of toe of left foot (HCC) (Primary Dx); Dry gangrene (HCC); Pain of toe of left foot; Diabetic polyneuropathy associated with type 2 diabetes mellitus (HCC); Leukocytosis, unspecified type; Hypertensive urgency 10/30/2017 [facility] General Internal Medicine - Encounter 11/01/2017 Marck Chandra MD L CATH & CORONARY ANGIOS 10/23/2017 Surgery Marck Chandra MD 10/23/2017 Hospital Encounter Marck Chandra MD 10/22/2017 Orders Only Cardiology Marck Chandra MD 09/30/2017 Orders Only Cardiology after 08/09/2017 Family History Medical History Relation Name Comments Coronary artery disease Brother 3 brothers f [place] Diabetes Brother Hypertension Brother Cancer Father Diabetes Maternal Grandmother Coronary artery disease Mother Diabetes Mother Hypertension Mother Cancer Paternal liver Grandfather Diabetes Paternal Grandmother Cancer Sister colon age 42 Diabetes Sister Hypertension Sister Relation Name Status Comments Brother Father Maternal Grandmother Mother Paternal Grandfather Paternal Grandmother Sister Social History Date Tobacco Use Types Packs/Day Years Used Never Smoker Smokeless Tobacco: Never Used Alcohol Use Drinks/Week oz/Week Comments No Sex Assigned at Date Recorded Not on file Industry Job Start Date Occupation Not on file Not on file Not on file Travel End Travel History Travel Start No recent travel history available. Last Filed Vital Signs Time Taken Vital Sign Reading 06/04/2018 1:07 PM [employer] Blood Pressure 148/63 06/04/2018 1:16 PM [employer] Pulse 66 06/04/2018 1:07 PM [employer] Temperature 36.7 C (98 F) 06/04/2018 1:16 PM [employer] Respiratory Rate 19 06/04/2018 1:07 PM [employer] Oxygen Saturation 96% - Inhaled Oxygen - Concentration 06/04/2018 8:20 AM [employer] Weight 79.6 kg (175 lb 6.5 oz) 06/01/2018 12:12 AM [employer] Height 167 cm (5' 5.75") 06/04/2018 8:20 AM [employer] Body Mass Index 28.53 Plan of Treatment Not on file Implants Device Identifier Shelf Expiration Date Model / Serial / Lot Implanted Type Area Manufactur er 01/16/2017 4301-02 / / [id number] Adhesion Barrier,Seprafilm 5x6 - Cement/Nguyễn N/A: Abdomen GENZYME [id number] ler/Adhesi SURGICAL Implanted: Qty: 1 on 01/16/2015 by [employer] Cesar Garner MD Procedures Comments Procedure Name Priority Date/Time Associated Diagnosis RHYTHM STRIP - SCAN 06/24/2018 1:30 PM [employer] POCT-GLUCOSE METER Routine 06/04/2018 1:05 PM [employer] POCT-GLUCOSE METER Routine 06/04/2018 8:24 AM [employer] (CELLAVISION MANUAL DIFF) Routine 06/04/2018 4:02 AM [employer] CBC W/PLT COUNT & AUTO Routine 06/04/2018 DIFFERENTIAL 4:02 AM [employer] PHOSPHORUS Routine 06/04/2018 4:02 AM [employer] MAGNESIUM Routine 06/04/2018 4:02 AM [employer] BASIC METABOLIC PANEL (7) Routine 06/04/2018 4:02 AM [employer] CBC W/PLT COUNT & AUTO Routine 06/04/2018 DIFFERENTIAL 4:02 AM [employer] POCT-GLUCOSE METER Routine 06/03/2018 9:18 PM [employer] POCT-GLUCOSE METER Routine 06/03/2018 2:59 PM [employer] RHYTHM STRIP - SCAN 06/03/2018 10:52 AM [employer] SPIN/CONCENTRATION CHARGE Routine 06/03/2018 9:39 AM [employer] AFB CULTURE + SMEAR Routine 06/03/2018 9:39 AM [employer] POCT-GLUCOSE METER Routine 06/03/2018 8:25 AM [employer] CBC W/PLT COUNT & AUTO Routine 06/03/2018 DIFFERENTIAL 4:24 AM [employer] PHOSPHORUS Routine 06/03/2018 4:24 AM [employer] MAGNESIUM Routine 06/03/2018 4:24 AM [employer] BASIC METABOLIC PANEL (7) Routine 06/03/2018 4:24 AM [employer] CBC W/PLT COUNT & AUTO Routine 06/03/2018 DIFFERENTIAL 4:24 AM [employer] POCT-GLUCOSE METER Routine 06/02/2018 9:08 PM [employer] SPIN/CONCENTRATION CHARGE Routine 06/02/2018 5:58 PM [employer] AFB CULTURE + SMEAR Routine 06/02/2018 5:58 PM [employer] POCT-GLUCOSE METER Routine 06/02/2018 5:56 PM [employer] POCT-GLUCOSE METER Routine 06/02/2018 12:23 PM [employer] POCT-GLUCOSE METER Routine 06/02/2018 8:13 AM [employer] STREP PNEUMONIAE ANTIGEN Routine 06/02/2018 5:27 AM [employer] CBC W/PLT COUNT & AUTO Routine 06/02/2018 DIFFERENTIAL 2:31 AM [employer] CBC W/PLT COUNT & AUTO Routine 06/02/2018 DIFFERENTIAL 2:31 AM [employer] HEMOGLOBIN A1C Routine 06/02/2018 2:31 AM [employer] BASIC METABOLIC PANEL (7) Routine 06/02/2018 2:31 AM [employer] POCT-GLUCOSE METER Routine 06/01/2018 9:47 PM [employer] LEGIONELLA URINE ANTIGEN Routine 06/01/2018 9:22 PM [employer] POCT-GLUCOSE METER Routine 06/01/2018 6:32 PM [employer] SPIN/CONCENTRATION CHARGE Routine 06/01/2018 5:28 PM [employer] SPUTUM CULTURE + GRAM Routine 06/01/2018 STAIN 5:28 PM [employer] AFB CULTURE + SMEAR Routine 06/01/2018 5:28 PM [employer] RESPIRATORY PANEL SLHS Routine 06/01/2018 5:25 PM [employer] POCT-GLUCOSE METER Routine 06/01/2018 3:34 PM [employer] POCT-GLUCOSE METER Routine 06/01/2018 1:07 PM [employer] POCT-GLUCOSE METER Routine 06/01/2018 10:18 AM [employer] POCT-GLUCOSE METER Routine 06/01/2018 8:55 AM [employer] POCT-GLUCOSE METER Routine 06/01/2018 4:22 AM [employer] LACTIC ACID, VENOUS STAT 06/01/2018 2:55 [address] [employer] [address] [address] CHEST PE TEST DESIGN STAT 06/01/2018 2:09 AM [employer] URINALYSIS W/ MICROSCOPIC STAT 06/01/2018 1:33 AM [employer] BLOOD CULTURE STAT 06/01/2018 1:11 AM [employer] CBC W/PLT COUNT & AUTO STAT 06/01/2018 DIFFERENTIAL 12:50 AM [employer] RAPID TROPONIN I STAT 06/01/2018 12:50 AM [employer] BASIC METABOLIC PANEL (7) STAT 06/01/2018 12:50 AM [employer] CBC W/PLT COUNT & AUTO STAT 06/01/2018 DIFFERENTIAL 12:50 AM [employer] LACTIC ACID, VENOUS STAT 06/01/2018 12:50 AM [employer] BLOOD CULTURE STAT 06/01/2018 12:50 AM [employer] ED ECG INTERPRETATION Routine 06/01/2018 12:41 AM [employer] ECG 12-LEAD Routine 06/01/2018 12:37 AM [employer] Procedure Note - Interface, External Ris In - 06/01/2018 1:40 AM [employer] Ventricula r Rate 100 BPM Atrial Rate 100 BPM P-R Interval 150 ms QRS Duration 84 ms Q-T Interval 338 ms QTC Calculatio n(Bazett) 436 ms P [place] 68 degrees R [place] 35 degrees T [place] 73 degrees Normal sinus rhythm Nonspecifi c T wave abnormalit y Abnormal ECG When compared with ECG of 7 15:14, Nonspecifi c T wave abnormalit y no longer evident in Inferior leads Nonspecifi c T wave abnormalit y now evident in Lateral leads ECG 12-LEAD STAT 06/01/2018 12:37 AM [employer] RAPID STREP A SCREEN STAT 06/01/2018 12:34 AM [employer] RAPID INFLUENZA A&B STAT 06/01/2018 SCREEN 12:34 AM [employer] XR CHEST 2 VIEWS STAT 06/01/2018 12:33 AM [employer] NH RESUPERF WND BODY Routine 02/17/2018 <2.5CM 9:19 PM CDT XR FOOT RIGHT 3 VIEW STAT 02/04/2018 12:35 PM CDT VASCULAR DIAGRAM -SCAN 01/15/2018 3:03 PM CDT POCT-GLUCOSE METER Routine 12/12/2017 8:17 AM CDT CBC W/PLT COUNT & AUTO Routine 12/12/2017 DIFFERENTIAL 6:12 AM CDT CBC W/PLT COUNT & AUTO Routine 12/12/2017 DIFFERENTIAL 6:12 AM CDT BASIC METABOLIC PANEL (7) Routine 12/12/2017 6:12 AM CDT POCT-GLUCOSE METER Routine 12/11/2017 8:30 PM CDT VANCOMYCIN LEVEL, TROUGH Timed 12/11/2017 7:39 PM CDT POCT-GLUCOSE METER Routine 12/11/2017 5:09 PM CDT POCT-GLUCOSE METER Routine 12/11/2017 11:58 AM CDT XR FOOT LEFT 2 VIEW Routine 12/11/2017 9:48 AM CDT POCT-GLUCOSE METER Routine 12/11/2017 7:42 AM CDT CBC W/PLT COUNT & AUTO Routine 12/11/2017 DIFFERENTIAL 6:33 AM CDT CBC W/PLT COUNT & AUTO Routine 12/11/2017 DIFFERENTIAL 6:33 AM CDT BASIC METABOLIC PANEL (7) Routine 12/11/2017 6:33 AM CDT LIPID PANEL Routine 12/11/2017 6:33 AM CDT HEMOGLOBIN A1C Routine 12/11/2017 6:33 AM CDT PT/APTT Routine 12/11/2017 6:33 AM CDT BLOOD CULTURE Routine 12/10/2017 8:31 PM CDT CBC W/PLT COUNT & AUTO Routine 12/10/2017 DIFFERENTIAL 8:13 PM CDT LACTIC ACID, VENOUS Routine 12/10/2017 8:13 PM CDT CBC W/PLT COUNT & AUTO Routine 12/10/2017 DIFFERENTIAL 8:13 PM CDT BASIC METABOLIC PANEL (7) Routine 12/10/2017 8:13 PM CDT BLOOD CULTURE Routine 12/10/2017 8:12 PM CDT POCT-GLUCOSE METER Routine 12/10/2017 7:11 PM CDT VANCOMYCIN LEVEL, TROUGH Timed 11/01/2017 7:51 AM CDT POCT-GLUCOSE METER Routine 11/01/2017 7:39 AM CDT CBC W/PLT COUNT & AUTO Routine 11/01/2017 DIFFERENTIAL 5:26 AM CDT CBC W/PLT COUNT & AUTO Routine 11/01/2017 DIFFERENTIAL 5:26 AM CDT BASIC METABOLIC PANEL (7) Routine 11/01/2017 5:26 AM CDT POCT-GLUCOSE METER Routine 10/31/2017 9:16 PM CDT POCT-GLUCOSE METER Routine 10/31/2017 4:50 PM CDT POCT-GLUCOSE METER Routine 10/31/2017 12:31 PM CDT POCT-GLUCOSE METER Routine 10/31/2017 9:29 AM CDT VANCOMYCIN LEVEL, TROUGH Timed 10/31/2017 4:02 AM CDT POCT-GLUCOSE METER Routine 10/30/2017 8:57 PM CDT MISCELLANEOUS LAB ORDER Routine 10/30/2017 6:24 PM CDT BLOOD CULTURE STAT 10/30/2017 6:24 PM CDT BLOOD CULTURE STAT 10/30/2017 6:24 PM CDT CBC W/PLT COUNT & AUTO STAT 10/30/2017 DIFFERENTIAL 5:20 PM CDT BASIC METABOLIC PANEL (7) STAT 10/30/2017 5:20 PM CDT C-REACTIVE PROTEIN STAT 10/30/2017 5:20 PM CDT CBC W/PLT COUNT & AUTO STAT 10/30/2017 DIFFERENTIAL 5:20 PM CDT XR FOOT LEFT 3 VIEW STAT 10/30/2017 5:17 PM CDT VASCULAR DIAGRAM -SCAN 10/24/2017 10:30 AM CDT CARDIAC CATH REPORT - 10/23/2017 SCAN 4:10 PM CDT L CATH & CORONARY ANGIOS 10/23/2017 Exertional dyspnea 11:30 AM CDT Case Notes (3) Case, POP6 L CATH & CORONARY ANGIOS WITH POSS PCI POCT-GLUCOSE METER Routine 10/23/2017 9:27 AM CDT POCT-GLUCOSE METER Routine 10/23/2017 8:14 AM CDT after 08/09/2017 Results * RHYTHM STRIP - SCAN (06/24/2018 1:30 PM [employer]) Only the most recent of 2 results within the time period is included. Narrative Performed At * POC-Glucose meter (06/04/2018 1:05 PM [employer]) Only the most recent of 30 results within the time period is included. POC-Glucose Meter 119 (H)Comment: TESTED AT 70 - 110 mg/dL [facility] [id number] [facility] [id number] Specimen Blood Performing Organization Address City/State/Zipcode Phone Number [facility] [address] [place] [address] MEDICAL CENTER * Manual Differential (06/04/2018 4:02 AM [employer]) % Neutros 61 % [facility] % Lymphs 31 % [facility] % Monos 5 % [facility] % Eos 1 % [facility] % Baso 1 % [facility] % Atypical Lymphs 1 (H) 0 - 0 % [facility] # Neutros 6.53 (H) 1.56 - 6.13 K/ul [facility] # Lymphs 3.32 1.18 - 3.74 K/ul [facility] # Monos 0.54 (H) 0.24 - 0.36 K/uL [facility] # Eos 0.11 0.04 - 0.36 K/uL [facility] # Baso 0.11 (H) 0.01 - 0.08 K/uL [facility] # Atypical Lymphs 0.11 (H) 0.00 - 0.00 K/uL [facility] Total Counted 100 [facility] Smudge Cells Present [facility] Giant Platelet Present [facility] Anisocytosis 1+ few [facility] Platelet Conc Adequate [facility] Specimen Blood - Arm, Right Narrative Performed At Received comment: [facility] User comments: [facility] Slide comments: Performing Organization Address City/State/Zipcode Phone Number [facility] [address] [place] [address] MEDICAL CENTER * CBC with platelet count + automated diff (06/04/2018 4:02 AM [employer]) Only the most recent of 9 results within the time period is included. WBC 10.7 (H) 3.5 - 10.5 K/L [facility] RBC 3.36 (L) 3.93 - 5.22 M/L [facility] Hemoglobin 8.9 (L) 11.2 - 15.7 GM/DL [facility] Hematocrit 28.7 (L) 34.1 - 44.9 % [facility] MCV 85.4 79.4 - 94.8 fL [facility] MCH 26.5 25.6 - 32.2 pg [facility] MCHC 31.0 (L) 32.2 - 35.5 GM/DL [facility] RDW 14.0 11.7 - 14.4 % [facility] Platelets 320 150 - 450 K/CU MM [facility] MPV 9.6 9.4 - 12.3 fL [facility] nRBC 0 0 - 0 /100 WBC [facility] Specimen Blood - Arm, Right Performing Organization Address City/[facility]/[place] Phone Number [address] * Phosphorus (06/04/2018 4:02 AM [employer]) Only the most recent of 2 results within the time period is included. Phosphorus 2.7 2.3 - 4.7 mg/dL [facility] Specimen Blood - Arm, Right Performing Organization Address [facility]/[place] Phone Number [place] [phone] [place] [address] * Magnesium (06/04/2018 4:02 AM [employer]) Only the most recent of 2 results within the time period is included. Magnesium 1.7 1.6 - 2.6 mg/dL [facility] Specimen Blood - Arm, Right Performing Organization Address [facility]/[place] [address] [phone] * Basic Metabolic Panel (06/04/2018 4:02 AM [employer]) Only the most recent of 9 results within the time period is included. Sodium 140 136 - 145 meq/L [facility] Potassium 3.7 3.5 - 5.1 meq/L [facility] Chloride 109 (H) 98 - 107 meq/L [facility] CO2 27 22 - 29 meq/L [facility] BUN 15 7 - 21 mg/dL [facility] Creatinine 1.22 0.57 - 1.25 mg/dL [facility] Glucose 151 (H) 70 - 105 mg/dL [facility] Calcium 8.3 (L) 8.4 - 10.2 mg/dL [facility] EGFR 55Comment: ESTIMATED GFR IS mL/min/1.73 sq m [facility] NOT ACCURATE CREATININE [facility] CLEARANCE IN PREDICTING GLOMERULAR FILTRATION RATE. ESTIMATED GFR IS NOT APPLICABLE FOR DIALYSIS PATIENTS. Specimen Blood - Arm, Right Performing Organization Address City/[facility]/Zipcode Phone Number [address] [address] [facility] * SPIN/CONCENTRATION CHARGE (06/03/2018 9:39 AM [employer]) Only the most recent of 3 results within the time period is included. Concentration charged Done [facility] Specimen Sputum - Induced Performing Organization Address [facility]/Zipcode Phone Number [address] [address] [phone] [place] [address] * AFB culture + smear (06/03/2018 9:39 AM [employer]) Only the most recent of 3 results within the time period is included. Result No acid-fast bacilli isolated [facility] in [address] [facility] AFB Smear No acid fast bacilli seen [facility] Specimen Sputum - Induced Performing Organization Address [facility]/Zipcode Phone Number [place] [phone] [place] [address] [facility] * Strep pneumoniae antigen urine (06/02/2018 5:27 AM [employer]) Strep pneumoniae Antigen Presumptive negative for Presumptive negative for [facility] pneumococcal pneumonia - see pneumococcal pneumonia - [facility] comment see comment, Presumptive negative for pneumococcal meningitis - see comment Specimen Urine - Urine, Clean Catch Narrative Performed At Presumptive negative for pneumococcal pneumonia, suggesting no current or recent [facility] pneumococcal infection. Infection due to S. pneumoniae cannot be ruled out since [facility] the antigen present in the sample may be below the detection limit of the test. Performing Organization Address City/[facility]/[place] Phone Number [address] [phone] [facility] * Hemoglobin A1c (06/02/2018 2:31 AM ENDLESS BED DRUM SANDER) Only the most recent of 2 results within the time period is included. Hemoglobin A1C 13.4 (H) 4.3 - 6.1 % [facility] Specimen Blood - Arm, Left Performing Organization Address City/[facility]/[place] Phone Number [address] [phone] [facility] * Legionella antigen, urine (06/01/2018 9:22 PM ENDLESS BED DRUM SANDER) Legionella Urine Antigen Negative - see commentComment: [facility] Negative for L. pneumophila [facility] serogroup 1 antigen, suggesting no recent or current infection with this serogroup. Legionellosis cannot be ruled out since other serogroups and species may cause disease. Specimen Urine - Urine, Clean Catch Performing Organization Address City/[facility]/[place] Phone Number [address] [phone] [facility] * Sputum Culture + Gram Stain (06/01/2018 5:28 PM ENDLESS BED DRUM SANDER) Result 1+ Normal respiratory ale [facility] Gram Stain Result 2+ White blood cells seen [facility] Gram Stain Result 0-5 epithelial cells [facility] Gram Stain Result 1+ gram negative rods [facility] Gram Stain Result 2+ gram positive cocci in [facility] Specimen Sputum - Expectorated Performing Organization Address City/State/Zipcode Phone Number [facility] [address] [place] [address] MEDICAL CENTER * RESPIRATORY PANEL [facility] (06/01/2018 5:25 PM ENDLESS BED DRUM SANDER) Human Metapneumovirus Not detected Not detected, [facility] Rhinovirus Not detected Not detected, [facility] Influenza A Not detected Not detected, [facility]ocal [facility] INFLUENZA A (NO SUBTYPE) Not detected, [facility]ocal [facility] Influenza A subtype H1 Not detected, [facility] Influenza A Subtype H3 Not detected, Equivocal [facility] Influenza A Subtype Not detected, Equivocal [facility] H1-[address] [facility] Influenza B Not detected Not detected, Equ[facility]ocal [facility] Respiratory Syncytial Detected (A)Comment: Assay is Not detected, Equivocal [facility] Virus not able differentiate between [facility] RSV A and RSV B.Contact isolation if immunosuppressed or young children. Consider stopping antibiotics. Parainfluenza Virus 1 Not detected Not detected, Equivocal [facility] Parainfluenza Virus 2 Not detected Not detected, [facility]ocal [facility] Parainfluenza virus 3 Not detected Not detected, Equivocal [facility] Parainfluenza Virus 4 Not detected Not detected, Equivocal [facility] Adenovirus Not detected Not detected, Equivocal [facility] Coronavirus 229E Not detected Not detected, Equivocal [facility] Coronavirus HKU1 Not detected Not detected, Equ[facility]ocal [facility] Coronavirus NL63 Not detected Not detected, Equivocal [facility] Coronavirus OC43 Not detected Not detected, Equivocal [facility] Bordetella Pertussis Not detected Not detected, Equivocal [facility] Chlamydophila Pneumoniae Not detected Not detected, Equivocal [facility] Mycoplasma Pneumoniae Not detected Not detected, Equivocal [facility] Specimen Nasopharyngeal - Nasopharyngeal Swab Narrative Performed At Other viruses and bacteria not targeted by this PCR panel cannot be excluded; [facility] therefore clinical correlation and follow up of serology, culture results, and [facility] other molecular studies is required. The results are not intended to be used as the sole means for clinical diagnosis or patient management decisions. This sample was tested at the [facility] using the Page365 Respiratory Panel. It is FDA cleared and has been verified and approved by the [facility] for clinical use on nasal swab specimens. It is not FDA-cleared for use on bronchial wash/lavage samples. However, for this sample type, validation was performed and test characteristics were determined and approved, by [facility] [employer] [facility] for clinical use under the Clinical Laboratory Improvement Amendments (CLIA) of 1988 requirements. Therefore, FDA clearance is not required.This laboratory is CLIA-certified and [employer] (CAP)-accredited to perform high complexity testing. Performing Organization Address City/[facility]/Zipcode Phone Number [facility] [address] [place] [address] [facility] * Lactic acid, venous, whole blood (06/01/2018 2:55 AM ENDLESS BED DRUM SANDER) Only the most recent of 3 results within the time period is included. Lactate, Venous 1.4 0.5 - 2.2 mmol/L [facility], [facility] Specimen Blood - Arm, Left Performing Organization Address City/[facility]/Zipcode Phone Number [facility] [address] [place] [address] [facility], [facility], [facility] * CT chest for pulmonary embolus (06/01/2018 2:09 AM ENDLESS BED DRUM SANDER) Narrative Performed At FINAL REPORT [facility] EXAMINATION:CHEST CT / PE PROTOCOL CLINICAL HISTORY: CHEST PAIN, SHORTNESS OF BREATH COMPARISON EXAMINATION: 07/27/2016 TECHNIQUE: Following the administration of I.V. contrast, axial images were acquired through the thorax during the early pulmonary arterial phase of imaging.Following postprocessing, coronal and sagittal reformatted images were created and reviewed. The exam was performed according to our departmental dose optimization program which includes automated exposure control, adjustment of the mA and/or kV according to patient's size and/or use of iterative reconstructive technique. FINDINGS: Scattered patchy opacities are noted in both lungs. The opacities are associated with reticulonodular clustered components including several that demonstrate a tree-in-bud morphology. The opacities are most conspicuous in the upper lobes. Subtle bilateral groundglass opacities are also noted which are relatively symmetric. No evidence of a significant pleural effusion, pneumothorax or pneumomediastinum. No evidence of a discrete pulmonary embolus. The thoracic aorta is normal in course and caliber. No evidence of an aortic dissection. The heart is mildly prominent. No evidence of a pericardial effusion. The esophagus is decompressed. Numerous shotty nonspecific lymph nodes are noted in the lower neck, mediastinum and both axillary regions. As before, the liver is relatively large measuring 26 cm in width. Limited images of the upper abdomen demonstrate mildly heterogeneous enhancement of the liver with multiple small subcentimeter hypodensities as well as vague asymmetric areas of increased enhancement, nonspecific and more conspicuous than on the previous exam. Dedicated liver protocol abdominal MRI could be performed for further tissue characterization if clinically warranted. As before, the spleen is relatively small. Small nodular foci are again noted near the spleen which may reflect excessively splenules. No definite evidence of an acute thoracic osseous abnormality. IMPRESSION: Bilateral parenchymal lung opacities, etiology indeterminate but concerning for possible acute multifocal pneumonia. Atypical sources of infection (including but not limited to tuberculosis) would be included in the differential diagnosis given the morphology and distribution. Interstitial lung disease would also be a consideration including sarcoidosis. A more aggressive neoplastic process cannot be excluded but is less likely. Follow up with a litigation assistant recommended. Consider imaging surveillance after appropriate medical therapy to document improvement-resolution. Shotty lower cervical, axillary or mediastinal lymph nodes, similar but increased from previous. Reactive lymph nodes are favored, possibly related to the parenchymal lung findings detailed above. Neoplastic process cannot be excluded. Again, consider imaging surveillance. Heterogeneous enhancement of the liver, new or more conspicuous than on patient's prior studies. A component may reflect timing of the contrast bolus. However, pathologic process cannot be excluded. Dedicated liver protocol MRI, preferably with contrast could be performed for further evaluation. Mildly enlarged heart. Groundglass lung opacities. Atelectasis versus mild edema. No evidence of a PE. Results discussed with Dr. Hernandez 0240 hours. call or contact centre team leader infection control nurse (Leyla) also notified at 0300 hours. Signed: Leyla Crocker MD Report Verified Date/Time:06/01/2018 03:03:58 Reading Location: [address] Reading Room Procedure Note Interface, External Ris In - 06/01/2018 3:06 AM ENDLESS BED DRUM SANDER FINAL REPORT EXAMINATION: CHEST CT / PE PROTOCOL CLINICAL HISTORY: CHEST PAIN, SHORTNESS OF BREATH COMPARISON EXAMINATION: 07/27/2016 TECHNIQUE: Following the administration of I.V. contrast, axial images were acquired through the thorax during the early pulmonary arterial phase of imaging. Following postprocessing, coronal and sagittal reformatted images were created and reviewed. The exam was performed according to our departmental dose optimization program which includes automated exposure control, adjustment of the mA and/or kV according to patient's size and/or use of iterative reconstructive technique. FINDINGS: Scattered patchy opacities are noted in both lungs. The opacities are associated with reticulonodular clustered components including several that demonstrate a tree-in-bud morphology. The opacities are most conspicuous in the upper lobes. Subtle bilateral groundglass opacities are also noted which are relatively symmetric. No evidence of a significant pleural effusion, pneumothorax or pneumomediastinum. No evidence of a discrete pulmonary embolus. The thoracic aorta is normal in course and caliber. No evidence of an aortic dissection. The heart is mildly prominent. No evidence of a pericardial effusion. The esophagus is decompressed. Numerous shotty nonspecific lymph nodes are noted in the lower neck, mediastinum and both axillary regions. As before, the liver is relatively large measuring 26 cm in width. Limited images of the upper abdomen demonstrate mildly heterogeneous enhancement of the liver with multiple small subcentimeter hypodensities as well as vague asymmetric areas of increased enhancement, nonspecific and more conspicuous than on the previous exam. Dedicated liver protocol abdominal MRI could be performed for further tissue characterization if clinically warranted. As before, the spleen is relatively small. Small nodular foci are again noted near the spleen which may reflect excessively splenules. No definite evidence of an acute thoracic osseous abnormality. IMPRESSION: Bilateral parenchymal lung opacities, etiology indeterminate but concerning for possible acute multifocal pneumonia. Atypical sources of infection (including but not limited to tuberculosis) would be included in the differential diagnosis given the morphology and distribution. Interstitial lung disease would also be a consideration including sarcoidosis. A more aggressive neoplastic process cannot be excluded but is less likely. Follow up with a litigation assistant recommended. Consider imaging surveillance after appropriate medical therapy to document improvement-resolution. Shotty lower cervical, axillary or mediastinal lymph nodes, similar but increased from previous. Reactive lymph nodes are favored, possibly related to the parenchymal lung findings detailed above. Neoplastic process cannot be excluded. Again, consider imaging surveillance. Heterogeneous enhancement of the liver, new or more conspicuous than on patient's prior studies. A component may reflect timing of the contrast bolus. However, pathologic process cannot be excluded. Dedicated liver protocol MRI, preferably with contrast could be performed for further evaluation. Mildly enlarged heart. Groundglass lung opacities. Atelectasis versus mild edema. No evidence of a PE. Results discussed with Dr. Hernandez 0240 hours. call or contact centre team leader infection control nurse (Leyla) also notified at 0300 hours. Signed: Leyla Crocker MD Report Verified Date/Time: 06/01/2018 03:03:58 Reading Location: [address] Reading Room Performing Organization Address City/State/Zipcode Phone Number [facility] * Urinalysis w/Microscopic (06/01/2018 1:33 AM ENDLESS BED DRUM SANDER) Color, UA Yellow [facility] Clarity, UA Clear [facility] Specific [place], UA 1.015 1.001 - 1.035 [facility] pH, UA 6.5 5.0 - 8.0 [facility] Protein, UA 100 mg/dL (A) Negative [facility] Glucose, UA 500 mg/dL (A) Negative [facility], [facility] Ketones, UA Negative Negative [facility], [facility], [facility] Bilirubin, UA Positive (A) Negative [facility], [facility], [facility] Blood, UA Negative Negative [facility] Nitrite, UA Negative Negative [facility] Leukocytes, UA Negative Negative [facility], [facility], [facility] Urobilinogen, UA 0.2 0.2 - 1.0 mg/dL [facility] Bacteria, UA Few [facility] RBC, UA <5 /HPF [facility] WBC, UA <5 /HPF [facility] SQUAMOUS EPITHELIAL <5 /HPF [facility], [facility], [facility] Specimen Source [facility], [facility], [facility] Specimen Urine - Urine, Clean Catch Performing Organization Address City/[facility]/Zipcode Phone Number [facility] [address] [place], [place] [phone] [facility], [facility] * Blood culture (06/01/2018 1:11 AM ENDLESS BED DRUM SANDER) Only the most recent of 6 results within the time period is included. Result No growth in 5 days [facility] Specimen Blood - Arm, Left Performing Organization Address City/[facility]/Zipcode Phone Number [facility] [address] [place] [address] MEDICAL CENTER * Rapid Troponin I (06/01/2018 12:50 AM ENDLESS BED DRUM SANDER) Rapid Troponin I <0.05 <0.05 ng/mL KENISHA BROWN [facility], [facility], [facility] Specimen Blood - Arm, Right Performing Organization Address City/State/Zipcode Phone Number KENISHA BROWN [address] [place] [address] [facility], [facility] * ECG/EKG Interpretation (06/01/2018 12:41 AM ENDLESS BED DRUM SANDER) Narrative Performed At Luis Miguel Hernandez MD 06/01/20187:52 PM ECG/EKG Interpretation Date/Time: 06/01/2018 12:41 AM Performed by: Luis Miguel Hernandez MD Authorized by: Luis Miguel Hernandez MD The ECG was interpreted by ED physician. This ECG was not compared with previous ECG(s).The ECG is interpreted as sinus rhythm. Rate is tachycardic. Heart rate is 100 BPM. Conduction: conduction normal. ST segments normal. T waves normal. [place] is normal. Other findings: no other findings. Clinical Impression: normal ECGECG reviewed and does not meet STEMI criteria. * ECG 12 lead (06/01/2018 12:37 AM ENDLESS BED DRUM SANDER) Narrative Performed At Ventricular Rate 100 BPM GE MUSE Atrial Rate 100 BPM P-R Interval 150 ms QRS Duration 84 ms Q-T Interval 338 ms QTC Calculation(Bazett) 436 ms P [place] 68 degrees R [place] 35 degrees T [place] 73 degrees Normal sinus rhythm Nonspecific T wave abnormalitylateral leads Abnormal ECG When compared with ECG of 27-JUL-2016 15:14, Nonspecific T wave abnormality no longer evident in Inferior leads Nonspecific T wave abnormality now evident in Lateral leads QT has shortened Confirmed by MD SUZANNE, BRENT ([id number]) on 06/01/2018 6:46:54 AM Procedure Note Interface, External Ris In - 06/01/2018 6:47 AM ENDLESS BED DRUM SANDER Ventricular Rate 100 BPM Atrial Rate 100 BPM P-R Interval 150 ms QRS Duration 84 ms Q-T Interval 338 ms QTC Calculation(Bazett) 436 ms P [place] 68 degrees R [place] 35 degrees T [place] 73 degrees Normal sinus rhythm Nonspecific T wave abnormality lateral leads Abnormal ECG When compared with ECG of 27-JUL-2016 15:14, Nonspecific T wave abnormality no longer evident in Inferior leads Nonspecific T wave abnormality now evident in Lateral leads QT has shortened Confirmed by MD SUZANNE, BRENT ([id number]) on 06/01/2018 6:46:54 AM Performing Organization Address City/[facility]/[place] Phone Number MUSE * Rapid Strep A screen (06/01/2018 12:34 AM ENDLESS BED DRUM SANDER) Strep A Ag Negative Negative [facility], [facility], [facility] Specimen Throat - Throat Performing Organization Address [facility]/[place] Phone Number [address] [address] [facility], [facility] * Rapid Influenza A&B Screen (06/01/2018 12:34 AM ENDLESS BED DRUM SANDER) Rapid Influenza A Antigen NEGATIVE LABORATORY FINDING Negative, Inconclusive [facility] Rapid influenza B Antigen NEGATIVE LABORATORY FINDING Negative, Inconclusive [facility] Specimen Nasal - Nasopharyngeal Swab Performing Organization Address [facility] Phone Number [address] [address] [facility], [facility], [facility] * XR chest 2 views (06/01/2018 12:33 AM ENDLESS BED DRUM SANDER) Narrative Performed At FINAL REPORT [facility] INDICATION: COUGH GENERALIZED BODY ACHES FEVER COMPARISON: None TECHNIQUE: Frontal and lateral views of the chest. FINDINGS: Lungs and pleura: Clear lungs. No effusion. Heart and mediastinum: Normal heart size. Unremarkable mediastinal contours. Osseous structures: No acute abnormality. Additional findings: None. IMPRESSION: No acute intrathoracic abnormality. Signed: Luisana Orosco MD Report Verified Date/Time:06/01/2018 00:53:22 Reading Location: [facility] C0[facility] Neuro Reading Room Procedure Note Interface, External Ris In - 06/01/2018 12:55 AM ENDLESS BED DRUM SANDER FINAL REPORT INDICATION: COUGH GENERALIZED BODY ACHES FEVER COMPARISON: None TECHNIQUE: Frontal and lateral views of the chest. FINDINGS: Lungs and pleura: Clear lungs. No effusion. Heart and mediastinum: Normal heart size. Unremarkable mediastinal contours. Osseous structures: No acute abnormality. Additional findings: None. IMPRESSION: No acute intrathoracic abnormality. Signed: Luisana Orosco MD Report Verified Date/Time: 06/01/2018 00:53:22 Reading Location: [address] Neuro Reading Room Performing Organization Address City/State/Zipcode Phone Number [facility] * LACERATION REPAIR (02/17/2018 9:19 PM CDT) Narrative Performed At Alek Harrison MD 02/17/20189:19 PM Lac Repair Date/Time: 02/17/2018 9:16 PM Performed by: ALEK HARRISON Authorized by: ALEK HARRISON Consent: Verbal consent obtained. Consent given by: patient Patient understanding: patient states understanding of the procedure being performed Patient identity confirmed: verbally with patient and arm band Body area: upper extremity Location details: right hand Laceration length: 2 cm Foreign bodies: no foreign bodies Tendon involvement: none Nerve involvement: none Vascular damage: no Sedation: Patient sedated: no Irrigation solution: saline and tap water Irrigation method: tap and syringe Amount of cleaning: standard Debridement: none Degree of undermining: none Skin closure: glue [id number] sterile gauze Patient tolerance: Patient tolerated the procedure well with no immediate complications Immediate Post-Procedure Note Date/Time: 02/17/2018 9:17 PM Assistants to the procedure: None Pre-procedure diagnosis: palmar laceration Post-procedure diagnosis: palmar laceration Procedures Performed: Lac Repair Specimens removed: None Estimated blood loss (mL): None Complications: None Type of anesthesia: None Grafts or Implants: None * XR foot 3 views right (02/04/2018 12:35 PM CDT) Narrative Performed At FINAL REPORT [facility] Three views right foot Discussion: There is what is presumably a traumatic probably subacute fracture involving the proximal metaphysis of the third toe proximal phalanx. No significant angulation or displacement. Remaining bones and soft tissues are unremarkable. Signed: Preston Galicia MD Report Verified Date/Time:02/04/2018 13:00:28 Reading Location: [facility] Radiology Reading Room Procedure Note Interface, External Ris In - 02/04/2018 1:02 PM CDT FINAL REPORT Three views right foot Discussion: There is what is presumably a traumatic probably subacute fracture involving the proximal metaphysis of the third toe proximal phalanx. No significant angulation or displacement. Remaining bones and soft tissues are unremarkable. Signed: Preston Galicia MD Report Verified Date/Time: 02/04/2018 13:00:28 Reading Location: [facility] Radiology Reading Room Performing Organization Address City/[facility]/Zipcode Phone Number [employer] * VASCULAR DIAGRAM -SCAN (01/15/2018 3:03 PM CDT) Only the most recent of 2 results within the time period is included. Narrative Performed At * Vancomycin level, trough (12/11/2017 7:39 PM CDT) Only the most recent of 3 results within the time period is included. Vancomycin Tr 22.0 (H) 10.0 - 20.0 ug/mL [facility] Specimen Blood - Arm, Left Performing Organization Address [facility]/[place] Phone Number [facility] [address] [place] [address] MEDICAL CENTER * XR foot 2 views left (12/11/2017 9:48 AM CDT) Narrative Performed At FINAL REPORT GE [employer] TECHNIQUE: Frontal, lateral, and oblique radiographs of the left foot dated 12/11/2017 HISTORY: Foot infection, nonhealing surgical site COMPARISON: Radiograph of the left foot dated 10/30/2017. 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 There appears to be a fracture involving the head of the fourth metatarsal bone. No dislocation. Bones are osteopenic. The Lisfranc joint is well aligned on these nonstress views. No bone erosion or soft tissue nodule seen. No radiodense foreign body or subcutaneous emphysema. IMPRESSION: Postsurgical changes involving the third digit. Fracture of the head of the fourth metatarsal bone. If there is concern for osteomyelitis. Recommend MRI versus nuclear medicine study. Signed: Rohit Dubon MD Report Verified Date/Time:12/11/2017 11:01:46 Reading Location: [facility] Radiology Reading Room Procedure Note Interface, External Ris In - 12/11/2017 11:03 AM CDT FINAL REPORT TECHNIQUE: Frontal, lateral, and oblique radiographs of the left foot dated 12/11/2017 HISTORY: Foot infection, nonhealing surgical site COMPARISON: Radiograph of the left foot dated 10/30/2017. 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 There appears to be a fracture involving the head of the fourth metatarsal bone. No dislocation. Bones are osteopenic. The Lisfranc joint is well aligned on these nonstress views. No bone erosion or soft tissue nodule seen. No radiodense foreign body or subcutaneous emphysema. IMPRESSION: Postsurgical changes involving the third digit. Fracture of the head of the fourth metatarsal bone. If there is concern for osteomyelitis. Recommend MRI versus nuclear medicine study. Signed: Rohit Dubon MD Report Verified Date/Time: 12/11/2017 11:01:46 Reading Location: [facility] Radiology Reading Room Performing Organization Address City/State/Zipcode Phone Number RIS * PT/aPTT (12/11/2017 6:33 AM CDT) Protime 14.6 11.7 - 14.7 seconds [facility] INR 1.1 <=5.9 [facility] PTT 32.4 22.5 - 36.0 seconds [facility] Specimen Blood - Arm, Left Narrative Performed At RECOMMENDED COUMADIN/WARFARIN INR THERAPY R[facility]ES [facility] STANDARD DOSE: 2.0 - 3.0 Includes: PROPHYLAXIS for venous thrombosis, [facility] systemic embolization; TREATMENT for venous thrombosis and/or pulmonary embolus. HIGH RISK: Target INR is 2.5-3.5 for patients with mechanical heart valves. Performing Organization Address City/[facility]/[place] Phone Number [facility] [address] * Lipid panel (12/11/2017 6:33 AM CDT) Triglycerides 368 mg/dL [facility] Cholesterol 151 mg/dL [facility] HDL 30 mg/dL [facility] LDL Calculated 47 mg/dL [facility] Specimen Blood - Arm, Left Narrative Performed At Triglyceride Reference Range: [facility] Low Risk <[address] [facility] [id number] High Risk 200-499 Very High Risk>=500 Cholesterol Reference Range: Low Risk <200 [id number] High Risk>240 HDL Cholesterol Reference Range: Low Risk >=60 High Risk <40 LDL Cholesterol Reference Range: Optimal<100 Near [id number] [id number] [id number] Very High >=190 Specimen slightly lipemic Performing Organization Address [facility]/[place] Phone Number [address] * BCID (10/30/2017 6:24 PM CDT) Scan Result [facility] Specimen Blood Narrative Performed At Performing Organization Address City/[facility]/[place] Phone Number [facility] [id number] [place], [place] * C-Reactive Protein (10/30/2017 5:20 PM CDT) CRP 1.54 (H) 0.00 - 0.50 mg/dL [facility] Specimen Blood Performing Organization Address City/[facility]/Zipcode Phone Number [address] * XR foot 3 views left (10/30/2017 5:17 PM CDT) Narrative Performed At FINAL REPORT [facility] Clinical Diagnosis: Toe pain Comparison: No comparison Views: Three views of the left toes Report: Air is visualized in the soft tissues of the third toe distally. Osseous changes are visualized most likely representing an inflammatory process involving the terminal Toft of the distal phalanx and the mid phalanx. Osteomyelitis is favored. Signed: Madelin Munoz MD Report Verified Date/Time:10/30/2017 17:45:28 Reading Location: [facility] [id number] Consult Reading Room Procedure Note Interface, External Ris In - 10/30/2017 5:47 PM CDT FINAL REPORT Clinical Diagnosis: Toe pain Comparison: No comparison Views: Three views of the left toes Report: Air is visualized in the soft tissues of the third toe distally. Osseous changes are visualized most likely representing an inflammatory process involving the terminal Toft of the distal phalanx and the mid phalanx. Osteomyelitis is favored. Signed: Madelin Munoz MD Report Verified Date/Time: 10/30/2017 17:45:28 Reading Location: [facility] Consult Reading Room Performing Organization Address City/State/Zipcode Phone Number GE RIS * CARDIAC CATH REPORT - SCAN (10/23/2017 4:10 PM CDT) Narrative Performed At after 08/09/2017 Insurance Payer Benefit Subscriber ID Type Phone Address Plan / Group [employer] xxxxxxxxx [facility] (Home) [place] [address] Advance Directives For more information, please contact: [address] [address] Date Inactivated Comments Code Status Date Activated Full Code 06/01/2018 5:59 AM This code status was determined by: Patient 12/12/2017 5:36 PM Full Code 12/10/2017 6:58 PM This code status was determined by: Patient 11/01/2017 2:24 PM Full Code 10/30/2017 8:49 PM This code status was determined by: Patient 10/23/2017 7:07 PM Full Code 10/23/2017 7:36 AM This code status was determined by: Patient 07/28/2016 4:46 PM Full Code 07/28/2016 1:13 AM This code status was determined by: Patient
--- NOTE | 2018-08-10 17:45 | NUR ---
No answer at this time.
--- NOTE | 2018-08-10 17:51 | NUR ---
2nd call at this time no answer.
== END 2018-08-10 17:54 | disposition short-term general hospital (02) ==
LOC: ER 16:44
DX: M79.604 Pain in right leg (principal)

== ENCOUNTER 2018-08-16 15:42 | Observation (INO) | payer OTHER ==
[~2018-08-16] VITALS: Ht 167.6 cm; Wt 82.2 kg
--- OUTSIDE RECORDS SUMMARY | 2018-08-16 15:45 | XMS REPORT | Clinical Summary ---
Author Author KENISHA [employer] CompanyLost Rivers Medical CenterGuaranteachHCA [facility] Address Unknown Phone Unavailable Care Team Providers Care Bi Data Modeler Name Role Phone Viraj Lomeli MD PCP [...] by mouth 2 8 (two) times daily. 08/16/2018 Active diazePAM (VALIUM) 2 MG Take 1 tablet 10 tablet 0 tablet (2 mg total) 9 by mouth every 8 (eight) hours as needed for Anxiety (muscle spasm) for up to 5 days. Max Daily Amount: 6 mg 08/21/2018 Active ibuprofen (ADVIL,MOTRIN) Take 1 tablet 40 tablet 0 600 MG tablet (600 mg 9 total) by mouth every 6 (six) hours as needed for Pain for up to 10 days. 02/04/2018 Discontinued atorvastatin (LIPITOR) 40 Take 40 mg by 0 MG tablet mouth. 6 12/12/2017 Discontinued baclofen (LIORESAL) 10 MG Take 10 mg by 0 tablet mouth 3 7 (three) times daily as needed . 12/12/2017 Discontinued beta carotene [id number] UNIT Take 25,000 0 capsule Units by [...] solution (two) times daily for 7 days [place] 2nd and 3rd toes on left foot. [...] Encounters Care Team Description Date Type Specialty Ruby Nowak MD Leg cramps (Primary Dx); Right hip pain; Right thigh pain; History of statin therapy; History of diabetes mellitus; Acute right-sided low back pain without sciatica; Hyperglycemia 08/11/2018 Emergency Emergency Medicine 08/11/2018 Travel Luis Miguel Hernandez MD Ali, Sanah Qasam, [...] Brian Baca MD Rehman, Javed, MD 12/10/2017 [facility] General Internal Medicine - Encounter 12/12/2017 Brijesh Carrasquillo MD Alagugurusamy, Rajkumar, MD Vincent, Toicha Ann, MD Acute osteomyelitis of toe of left foot (HCC) (Primary Dx); Dry gangrene (HCC); Pain of toe of left foot; Diabetic polyneuropathy associated with type 2 diabetes mellitus (HCC); Leukocytosis, unspecified type; Hypertensive urgency 10/30/2017 [facility] General Internal Medicine - Encounter 11/01/2017 Marck Chandra MD L CATH & CORONARY ANGIOS 10/23/2017 Surgery Marck Chandra MD 10/23/2017 Hospital Encounter Marck Chandra MD 10/22/2017 Orders Only Cardiology Marck Chandra MD 09/30/2017 Orders Only Cardiology after 08/15/2017 Family History Medical History Relation Name Comments Coronary artery disease Brother 3 brothers f [place] Diabetes Brother Hypertension Brother Cancer Father Diabetes [...] Vital Signs Time Taken Vital Sign Reading 08/11/2018 10:15 AM CDT Blood Pressure 182/83 08/11/2018 10:15 AM CDT Pulse 84 08/11/2018 8:34 AM CDT Temperature 36.4 C (97.6 F) 08/11/2018 10:15 AM CDT Respiratory Rate 18 08/11/2018 10:15 AM CDT Oxygen Saturation 97% - Inhaled Oxygen - Concentration 08/11/2018 8:34 AM CDT Weight 76.7 kg (169 lb) 08/11/2018 8:34 AM CDT Height 165.1 cm (5' 5") 08/11/2018 8:34 AM CDT Body Mass Index 28.12 Plan of Treatment Not on file Implants Device Identifier Shelf Expiration Date Model / Serial / Lot Implanted Type Area Manufactur er 01/16/2017 4301-02 / / [id number] Adhesion Barrier,Seprafilm 5x6 - Cement/Nguyễn N/A: Abdomen GENZYME [id number] ler/Adhesi SURGICAL Implanted: Qty: 1 on 01/16/2015 by ve Cesar Collazo MD Procedures Comments Procedure Name Priority Date/Time Associated Diagnosis POCT-GLUCOSE METER Routine 08/11/2018 11:48 AM CDT CBC W/PLT COUNT & AUTO STAT 08/11/2018 DIFFERENTIAL 9:44 AM CDT CREATINE KINASE (CK) STAT 08/11/2018 9:44 AM CDT PHOSPHORUS STAT 08/11/2018 9:44 AM CDT MAGNESIUM STAT 08/11/2018 9:44 AM CDT BASIC METABOLIC PANEL (7) STAT 08/11/2018 9:44 AM CDT CBC W/PLT COUNT & AUTO STAT 08/11/2018 DIFFERENTIAL 9:44 AM CDT XR HIP RIGHT 2 VIEW STAT 08/11/2018 9:29 AM CDT RHYTHM STRIP - SCAN 06/24/2018 1:30 PM CERTIFIED ORTHOTIST POCT-GLUCOSE METER Routine 06/04/2018 1:05 PM CERTIFIED ORTHOTIST POCT-GLUCOSE METER Routine 06/04/2018 8:24 AM CERTIFIED ORTHOTIST (CELLAVISION MANUAL DIFF) Routine 06/04/2018 4:02 AM CERTIFIED ORTHOTIST CBC W/PLT COUNT & AUTO Routine 06/04/2018 DIFFERENTIAL 4:02 AM CERTIFIED ORTHOTIST PHOSPHORUS Routine 06/04/2018 4:02 AM CERTIFIED ORTHOTIST MAGNESIUM Routine 06/04/2018 4:02 AM CERTIFIED ORTHOTIST BASIC METABOLIC PANEL (7) Routine 06/04/2018 4:02 AM CERTIFIED ORTHOTIST CBC W/PLT COUNT & AUTO Routine 06/04/2018 DIFFERENTIAL 4:02 AM CERTIFIED ORTHOTIST POCT-GLUCOSE METER Routine 06/03/2018 9:18 PM CERTIFIED ORTHOTIST POCT-GLUCOSE METER Routine 06/03/2018 2:59 PM CERTIFIED ORTHOTIST RHYTHM STRIP - SCAN 06/03/2018 10:52 AM CERTIFIED ORTHOTIST SPIN/CONCENTRATION CHARGE Routine 06/03/2018 9:39 AM CERTIFIED ORTHOTIST AFB CULTURE + SMEAR Routine 06/03/2018 9:39 AM CERTIFIED ORTHOTIST POCT-GLUCOSE METER Routine 06/03/2018 8:25 AM CERTIFIED ORTHOTIST CBC W/PLT COUNT & AUTO Routine 06/03/2018 DIFFERENTIAL 4:24 AM CERTIFIED ORTHOTIST PHOSPHORUS Routine 06/03/2018 4:24 AM CERTIFIED ORTHOTIST MAGNESIUM Routine 06/03/2018 4:24 AM CERTIFIED ORTHOTIST BASIC METABOLIC PANEL (7) Routine 06/03/2018 4:24 AM CERTIFIED ORTHOTIST CBC W/PLT COUNT & AUTO Routine 06/03/2018 DIFFERENTIAL 4:24 AM CERTIFIED ORTHOTIST POCT-GLUCOSE METER Routine 06/02/2018 9:08 PM CERTIFIED ORTHOTIST SPIN/CONCENTRATION CHARGE Routine 06/02/2018 5:58 PM CERTIFIED ORTHOTIST AFB CULTURE + SMEAR Routine 06/02/2018 5:58 PM CERTIFIED ORTHOTIST POCT-GLUCOSE METER Routine 06/02/2018 5:56 PM CERTIFIED ORTHOTIST POCT-GLUCOSE METER Routine 06/02/2018 12:23 PM CERTIFIED ORTHOTIST POCT-GLUCOSE METER Routine 06/02/2018 8:13 AM CERTIFIED ORTHOTIST STREP PNEUMONIAE ANTIGEN Routine 06/02/2018 5:27 AM CERTIFIED ORTHOTIST CBC W/PLT COUNT & AUTO Routine 06/02/2018 DIFFERENTIAL 2:31 AM CERTIFIED ORTHOTIST CBC W/PLT COUNT & AUTO Routine 06/02/2018 DIFFERENTIAL 2:31 AM CERTIFIED ORTHOTIST HEMOGLOBIN A1C Routine 06/02/2018 2:31 AM CERTIFIED ORTHOTIST BASIC METABOLIC PANEL (7) Routine 06/02/2018 2:31 AM CERTIFIED ORTHOTIST POCT-GLUCOSE METER Routine 06/01/2018 9:47 PM CERTIFIED ORTHOTIST LEGIONELLA URINE ANTIGEN Routine 06/01/2018 9:22 PM CERTIFIED ORTHOTIST POCT-GLUCOSE METER Routine 06/01/2018 6:32 PM CERTIFIED ORTHOTIST SPIN/CONCENTRATION CHARGE Routine 06/01/2018 5:28 PM CERTIFIED ORTHOTIST SPUTUM CULTURE + GRAM Routine 06/01/2018 STAIN 5:28 PM CERTIFIED ORTHOTIST AFB CULTURE + SMEAR Routine 06/01/2018 5:28 PM CERTIFIED ORTHOTIST RESPIRATORY PANEL SLHS Routine 06/01/2018 5:25 PM CERTIFIED ORTHOTIST POCT-GLUCOSE METER Routine 06/01/2018 3:34 PM CERTIFIED ORTHOTIST POCT-GLUCOSE METER Routine 06/01/2018 1:07 PM CERTIFIED ORTHOTIST POCT-GLUCOSE METER Routine 06/01/2018 10:18 AM CERTIFIED ORTHOTIST POCT-GLUCOSE METER Routine 06/01/2018 8:55 AM CERTIFIED ORTHOTIST POCT-GLUCOSE METER Routine 06/01/2018 4:22 AM CERTIFIED ORTHOTIST LACTIC ACID, VENOUS STAT 06/01/2018 2:[address] CHEST PE TEST DESIGN STAT 06/01/2018 2:09 AM CERTIFIED ORTHOTIST URINALYSIS W/ MICROSCOPIC STAT 06/01/2018 1:33 AM CERTIFIED ORTHOTIST BLOOD CULTURE STAT 06/01/2018 1:11 AM CERTIFIED ORTHOTIST CBC W/PLT COUNT & AUTO STAT 06/01/2018 DIFFERENTIAL 12:50 AM CERTIFIED ORTHOTIST RAPID TROPONIN I STAT 06/01/2018 12:50 AM CERTIFIED ORTHOTIST BASIC METABOLIC PANEL (7) STAT 06/01/2018 12:50 AM CERTIFIED ORTHOTIST CBC W/PLT COUNT & AUTO STAT 06/01/2018 DIFFERENTIAL 12:50 AM CERTIFIED ORTHOTIST LACTIC ACID, VENOUS STAT 06/01/2018 12:50 AM CERTIFIED ORTHOTIST BLOOD CULTURE STAT 06/01/2018 12:50 AM CERTIFIED ORTHOTIST ED ECG INTERPRETATION Routine 06/01/2018 12:41 AM CERTIFIED ORTHOTIST ECG 12-LEAD Routine 06/01/2018 12:37 AM CERTIFIED ORTHOTIST Procedure Note - Interface, External Ris In - 06/01/2018 1:40 AM CERTIFIED ORTHOTIST Ventricula r Rate 100 BPM Atrial Rate 100 BPM P-R Interval 150 ms QRS Duration 84 ms Q-T Interval 338 ms QTC Calculatio n(Bazett) 436 ms P [place] 68 degrees R [place] 35 degrees T [place] 73 degrees Normal sinus rhythm Nonspecifi c T wave abnormalit y Abnormal ECG When compared with ECG of 7 15:14, Nonspecifi c T wave abnormalit y no longer evident in Inferior leads Nonspecifi c T wave abnormalit y now evident in Lateral leads ECG 12-LEAD STAT 06/01/2018 12:37 AM CERTIFIED ORTHOTIST RAPID STREP A SCREEN STAT 06/01/2018 12:34 AM CERTIFIED ORTHOTIST RAPID INFLUENZA A&B STAT 06/01/2018 SCREEN 12:34 AM CERTIFIED ORTHOTIST XR CHEST 2 VIEWS STAT 06/01/2018 12:33 AM CERTIFIED ORTHOTIST MD RESUPERF WND BODY Routine 02/17/2018 <2.5CM 9:19 [...] METER Routine 10/23/2017 8:14 AM CDT after 08/15/2017 Results * POC-Glucose meter (08/11/2018 11:48 AM CDT) Only the most recent of 31 results within the time period is included. POC-Glucose Meter 405 (HH)Comment: TESTED AT 70 - 110 mg/dL [facility] [id number] [facility] [id number] Specimen Blood Performing Organization Address City/State/Zipcode Phone Number [facility] [address] [place] [address] MEDICAL CENTER * CBC with platelet count + automated diff (08/11/2018 9:44 AM CDT) Only the most recent of 10 results within the time period is included. WBC 10.7 (H) 4.0 - 10.0 K/L [facility], [facility] [place] RBC 4.60 4.00 - 5.00 M/L [facility], [facility] [place] Hemoglobin 12.1 12.0 - 15.0 GM/DL [facility], [facility] [place] Hematocrit 38.3 36.0 - 45.0 % [facility], [facility] [place] MCV 83.2 82.0 - 99.0 fL [facility] [place] MCH 26.3 (L) 27.0 - 33.0 pg [facility] [place] MCHC 31.6 (L) 32.0 - 36.0 GM/DL [facility] RDW 14.5 (H) 10.3 - 14.2 % [facility] [place] Platelets 426 150 - 430 K/CU MM [facility] MPV 8.1 6.5 - 10.5 fL [facility] [place] % Neutros 64 % [facility] [place] % Lymphs 27 % [facility] [place] % Monos 7 % [facility] [place] % Eos 1 % [facility] [place] % Baso 1 % [facility] [place] # Neutros 6.85 1.80 - 8.00 K/L [facility] [place] # Lymphs 2.90 1.48 - 4.50 K/L [facility] [place] # Monos 0.77 0.00 - 1.30 K/L [facility] # Eos 0.15 0.00 - 0.50 K/L [facility] [place] # Baso 0.06 0.00 - 0.20 K/L [facility] [place] Specimen Blood - Arm, Left Performing Organization Address [facility] Phone Number [address] [address] [facility], [facility] [place] * Phosphorus (08/11/2018 9:44 AM CDT) Only the most recent of 3 results within the time period is included. Phosphorus 3.6 2.5 - 4.5 mg/dL [facility] Specimen Blood - Arm, Left Performing Organization Address [facility] Phone Number [address] [address] [facility] [place] * Magnesium (08/11/2018 9:44 AM CDT) Only the most recent of 3 results within the time period is included. Magnesium 1.8 1.5 - 3.0 mg/dL [facility] Specimen Blood - Arm, Left Performing Organization Address [facility] Phone Number [address] [address] [facility] [place] * Creatine Kinase (CK) (08/11/2018 9:44 AM CDT) Total CK 155 25 - 235 U/L [facility] [place] Specimen Blood - Arm, Left Performing Organization Address City/[facility] Phone Number [address] [address] [facility], [facility] [place] * Basic Metabolic Panel (08/11/2018 9:44 AM CDT) Only the most recent of 10 results within the time period is included. Sodium 132 (L) 135 - 148 meq/L [facility] Potassium 5.9 (H) 3.6 - 5.5 meq/L [facility] [place] Chloride 99 98 - 106 meq/L [facility] CO2 22 (L) 24 - 32 meq/L [facility] [place] BUN 20 10 - 26 mg/dL [facility] [place] Creatinine 1.05 0.50 - 1.20 mg/dL [facility] [place] Glucose 446 (HH) 70 - 110 mg/dL [facility] Calcium 9.3 8.5 - 10.5 mg/dL [facility] [place] EGFR 66Comment: ESTIMATED GFR IS mL/min/1.73 sq m [facility] NOT ACCURATE CREATININE [facility] CLEARANCE IN [facility] GLOMERULAR FILTRATION RATE. EMERGENCY CENTER, ESTIMATED GFR IS NOT [facility] APPLICABLE FOR DIALYSIS PATIENTS. Specimen Blood - Arm, Left Performing Organization Address City/State/Zipcode Phone Number [facility] [address] [place] [address] [facility] [place] * XR hip 2 views right (08/11/2018 9:29 AM CDT) Narrative Performed At [facility] Radiograph of the right hip Reason for exam: HIP PAIN LEG PAIN Comparison:No priors Discussion: There is mild right hip joint space narrowing with minimal osteophyte formation. No evidence of acute fracture, or dislocation. A small focus of heterotopic ossification, or old avulsion injury is noted adjacent to the right superior iliac crest. Visualized soft tissues are unremarkable. Impressions: Mild right DJD. Signed: Pily Garza MD Report Verified Date/Time:08/11/2018 09:31:19 Reading Location: [facility] Radiology Reading Room Procedure Note Interface, External Ris In - 08/11/2018 9:33 AM CDT FINAL REPORT Radiograph of the right hip Reason for exam: HIP PAIN LEG PAIN Comparison: No priors Discussion: There is mild right hip joint space narrowing with minimal osteophyte formation. No evidence of acute fracture, or dislocation. A small focus of heterotopic ossification, or old avulsion injury is noted adjacent to the right superior iliac crest. Visualized soft tissues are unremarkable. Impressions: Mild right DJD. Signed: Pily Garza MD Report Verified Date/Time: 08/11/2018 09:31:19 Reading Location: [facility] Radiology Reading Room Performing Organization Address City/State/Zipcode Phone Number GE RIS * RHYTHM STRIP - SCAN (06/24/2018 1:30 PM CERTIFIED ORTHOTIST) Only the most recent of 2 results within the time period is included. Narrative Performed At * Manual Differential (06/04/2018 4:02 AM CERTIFIED ORTHOTIST) % Neutros 61 % [facility] % Lymphs 31 % [facility] % Monos 5 % [facility] % Eos 1 % [facility] % Baso 1 % [facility] % Atypical Lymphs 1 (H) 0 - 0 % [facility] # Neutros 6.53 (H) 1.56 - 6.13 K/ul [facility] # Lymphs 3.32 1.18 - 3.74 K/ul [facility] # Monos 0.54 (H) 0.24 - 0.36 K/uL [facility] # Eos 0.11 0.04 - 0.36 K/uL [facility] # Baso 0.11 (H) 0.01 - 0.08 K/uL [facility] # Atypical Lymphs 0.11 (H) 0.00 - 0.00 K/uL [facility] Total Counted 100 [facility] Smudge Cells Present [facility] Giant Platelet Present [facility] Anisocytosis 1+ few [facility] Platelet Conc Adequate [facility] Specimen Blood - Arm, Right Narrative Performed At Received comment: [facility] User comments: [facility] Slide comments: Performing Organization Address City/[facility] Phone Number [address] [address] [facility] * SPIN/CONCENTRATION CHARGE (06/03/2018 9:39 AM CERTIFIED ORTHOTIST) Only the most recent of 3 results within the time period is included. Concentration charged Done [facility] Specimen Sputum - Induced Performing Organization Address City/[facility] Phone Number [address] [address] [phone] [place] [address] * AFB culture + smear (06/03/2018 9:39 AM CERTIFIED ORTHOTIST) Only the most recent of 3 results within the time period is included. Result No acid-fast bacilli isolated [facility] in 42 days [facility] AFB Smear No acid fast bacilli seen [facility] Specimen Sputum - Induced Performing Organization Address [facility] Phone Number [address] [address] [facility] * Strep pneumoniae antigen urine (06/02/2018 5:27 AM CERTIFIED ORTHOTIST) Strep pneumoniae Antigen Presumptive negative for Presumptive negative for [facility] pneumococcal pneumonia - see pneumococcal pneumonia - [facility] comment see comment, Presumptive negative for pneumococcal meningitis - see comment Specimen Urine - Urine, Clean Catch Narrative Performed At Presumptive negative for pneumococcal pneumonia, suggesting no current or recent [facility] pneumococcal infection. Infection due to S. pneumoniae cannot be ruled out since [facility] the antigen present in the sample may be below the detection limit of the test. Performing Organization Address [facility] Phone Number [address] [address] [facility] * Hemoglobin A1c (06/02/2018 2:31 AM CERTIFIED ORTHOTIST) Only the most recent of 2 results within the time period is included. Hemoglobin A1C 13.4 (H) 4.3 - 6.1 % [facility] Specimen Blood - Arm, Left Performing Organization Address [facility] Phone Number [facility] [address] [place] [address] [facility] * Legionella antigen, urine (06/01/2018 9:22 PM CERTIFIED ORTHOTIST) Legionella Urine Antigen Negative - see commentComment: [facility] Negative for L. pneumophila [facility] serogroup 1 antigen, suggesting no recent or current infection with this serogroup. Legionellosis cannot be ruled out since other serogroups and species may cause disease. Specimen Urine - Urine, Clean Catch Performing Organization Address [facility] Phone Number [address] [address] [phone] [place] [address] * Sputum Culture + Gram Stain (06/01/2018 5:28 PM CERTIFIED ORTHOTIST) Result 1+ Normal respiratory lae [facility] Gram Stain Result 2+ White blood cells seen [facility] Gram Stain Result 0-5 epithelial cells [facility] Gram Stain Result 1+ gram negative rods [facility] Gram Stain Result 2+ gram positive cocci in [facility] Specimen Sputum - Expectorated Performing Organization Address [facility] Phone Number [address] [address] [phone] [place] [address] * RESPIRATORY PANEL SL (06/01/2018 5:25 PM CERTIFIED ORTHOTIST) Human Metapneumovirus Not detected Not detected, [employer] [facility] Rhinovirus Not detected Not detected, [employer] [facility] Influenza A Not detected Not detected, [employer] [facility] INFLUENZA A (NO SUBTYPE) Not detected, [employer] [facility] Influenza A subtype H1 Not detected, [employer] [facility] Influenza A Subtype H3 Not detected, [employer] [facility] Influenza A Subtype Not detected, [employer] [facility] H1-2009 [facility] Influenza B Not detected Not detected, [employer] [facility] Respiratory Syncytial Detected (A)Comment: Assay is Not detected, [employer] [facility] Virus not able differentiate between [facility] RSV A and RSV B.Contact isolation if immunosuppressed or young children. Consider stopping antibiotics. Parainfluenza Virus 1 Not detected Not detected, [employer] [facility] Parainfluenza Virus 2 Not detected Not detected, [employer] [facility] Parainfluenza virus 3 Not detected Not detected, [employer] [facility] Parainfluenza Virus 4 Not detected Not detected, [employer] [facility] Adenovirus Not detected Not detected, [employer] [facility] Coronavirus 229E Not detected Not detected, [employer] [facility] Coronavirus HKU1 Not detected Not detected, [employer] [facility] Coronavirus NL63 Not detected Not detected, [employer] [facility] Coronavirus OC43 Not detected Not detected, [employer] [facility] Bordetella Pertussis Not detected Not detected, [employer] [facility] Chlamydophila Pneumoniae Not detected Not detected, [employer] [facility] Mycoplasma Pneumoniae Not detected Not detected, [employer] [facility] Specimen Nasopharyngeal - Nasopharyngeal Swab Narrative Performed At Other viruses and bacteria not targeted by this PCR panel cannot be excluded; [facility] therefore clinical correlation and follow up of serology, culture results, and [facility] other molecular studies is required. The results are not intended to be used as the sole means for clinical diagnosis or patient management decisions. This sample was tested at the [facility] using the [employer] Respiratory Panel. It is FDA cleared and has been verified and approved by the [facility] for clinical use on nasal swab specimens. It is not FDA-cleared for use on bronchial wash/lavage samples. However, for this sample type, validation was performed and test characteristics were determined and approved, by [facility] for clinical use under the Clinical Laboratory Improvement Amendments (CLIA) of 1988 requirements. Therefore, FDA clearance is not required.This laboratory is CLIA-certified and [employer] (CAP)-accredited to perform high complexity testing. Performing Organization Address City/[facility]/Zipcode Phone Number [facility] [address] [place] [phone] [facility] * Lactic acid, venous, whole blood (06/01/2018 2:55 AM CERTIFIED ORTHOTIST) Only the most recent of 3 results within the time period is included. Lactate, Venous 1.4 0.5 - 2.2 mmol/L [facility], [facility] [place] Specimen Blood - Arm, Left Performing Organization Address [facility]/Zipcode Phone Number [facility] [address] [place], [place] [phone] [facility], [facility] [place] * CT chest for pulmonary embolus (06/01/2018 2:09 AM CERTIFIED ORTHOTIST) Narrative Performed At FINAL REPORT [facility] EXAMINATION:CHEST CT / PE PROTOCOL CLINICAL HISTORY: [...] is less likely. Follow up with a acute care physician recommended. Consider imaging surveillance after appropriate medical [...] MD Report Verified Date/Time:06/01/2018 03:03:58 Reading Location: [address] Reading Room Procedure Note Interface, External Ris In - 06/01/2018 3:06 AM CERTIFIED ORTHOTIST FINAL REPORT EXAMINATION: CHEST CT / PE [...] is less likely. Follow up with a acute care physician recommended. Consider imaging surveillance after appropriate medical [...] Report Verified Date/Time: 06/01/2018 03:03:58 Reading Location: [address] Reading Room Performing Organization Address City/State/Zipcode Phone Number [facility] * Urinalysis w/Microscopic (06/01/2018 1:33 AM CERTIFIED ORTHOTIST) Color, UA Yellow [facility] [place] Clarity, UA Clear [facility] [place] Specific [place], UA 1.015 1.001 - 1.035 [facility] pH, UA 6.5 5.0 - 8.0 [facility] Protein, UA 100 mg/dL (A) Negative [facility] Glucose, UA 500 mg/dL (A) Negative [facility] Ketones, UA Negative Negative [facility] Bilirubin, UA Positive (A) Negative [facility] Blood, UA Negative Negative [facility] [place] Nitrite, UA Negative Negative [facility], [facility] [place] Leukocytes, UA Negative Negative [facility] Urobilinogen, UA 0.2 0.2 - 1.0 mg/dL [facility], [facility], [facility] Bacteria, UA Few [facility] RBC, UA <5 /HPF [facility] WBC, UA <5 /HPF [facility] SQUAMOUS EPITHELIAL <5 /HPF [facility] Specimen Source [facility] Specimen Urine - Urine, Clean Catch Performing Organization Address [facility] Phone Number [address] [phone] [facility] * Blood culture (06/01/2018 1:11 AM CERTIFIED ORTHOTIST) Only the most recent of 6 results within the time period is included. Result No growth in 5 days [facility] Specimen Blood - Arm, Left Performing Organization Address City/[facility] Cliniccode Phone Number [address] [address] [facility] * Rapid Troponin I (06/01/2018 12:50 AM CERTIFIED ORTHOTIST) Rapid Troponin I <0.05 <0.05 ng/mL [facility] Specimen Blood - Arm, Right Performing Organization Address [facility]/Zipcode Phone Number [facility] [address] [place], [place] [phone] [facility], [facility], [facility] * ECG/EKG Interpretation (06/01/2018 12:41 AM CERTIFIED ORTHOTIST) Narrative Performed At Luis Miguel Hernandez MD [...] normal. ST segments normal. T waves normal. [place] is normal. Other findings: no other findings. Clinical Impression: normal ECGECG reviewed and does not meet STEMI criteria. * ECG 12 lead (06/01/2018 12:37 AM CERTIFIED ORTHOTIST) Narrative Performed At Ventricular Rate 100 BPM [facility] Atrial Rate 100 BPM P-R Interval 150 ms QRS Duration 84 ms Q-T Interval 338 ms QTC Calculation(Bazett) 436 ms P [place] 68 degrees R [place] 35 degrees T [place] 73 degrees Normal sinus rhythm Nonspecific T wave abnormalitylateral leads Abnormal ECG When compared with ECG of 27-JUL-2016 15:14, Nonspecific T wave abnormality no longer evident in Inferior leads Nonspecific T wave abnormality now evident in Lateral leads QT has shortened Confirmed by MD PALACIOS YOCHAI ([id number]) on 06/01/2018 6:46:54 AM Procedure Note Interface, External Ris In - 06/01/2018 6:47 AM CERTIFIED ORTHOTIST Ventricular Rate 100 BPM Atrial Rate 100 BPM P-R Interval 150 ms QRS Duration 84 ms Q-T Interval 338 ms QTC Calculation(Bazett) 436 ms P [place] 68 degrees R [place] 35 degrees T [place] 73 degrees Normal sinus rhythm Nonspecific T wave abnormality lateral leads Abnormal ECG When compared with ECG of 27-JUL-2016 15:14, Nonspecific T wave abnormality no longer evident in Inferior leads Nonspecific T wave abnormality now evident in Lateral leads QT has shortened Confirmed by MD PALACIOS YOCHAI ([id number]) on 06/01/2018 6:46:54 AM Performing Organization Address City/State/[facility] Phone Number [facility] * Rapid Strep A screen (06/01/2018 12:34 AM CERTIFIED ORTHOTIST) Strep A Ag Negative Negative [facility], [facility] [place] Specimen Throat - Throat Performing Organization Address City/State/Zipcode Phone Number KENISHA BROWN [address] [place] [address] [facility], [facility] [place] * Rapid Influenza A&B Screen (06/01/2018 12:34 AM CERTIFIED ORTHOTIST) Rapid Influenza A Antigen NEGATIVE LABORATORY FINDING Negative, Inconclusive [facility] Rapid influenza B Antigen NEGATIVE LABORATORY FINDING Negative, Inconclusive [facility] Specimen Nasal - Nasopharyngeal Swab Performing Organization Address City/[facility]/Zipcode Phone Number KENISHA BROWN [address] [place] [address] [facility], [facility] * XR chest 2 views (06/01/2018 12:33 AM CERTIFIED ORTHOTIST) Narrative Performed At FINAL REPORT [facility] INDICATION: COUGH GENERALIZED BODY ACHES FEVER COMPARISON: None TECHNIQUE: Frontal and lateral views of the chest. FINDINGS: Lungs and pleura: Clear lungs. No effusion. Heart and mediastinum: Normal heart size. Unremarkable mediastinal contours. Osseous structures: No acute abnormality. Additional findings: None. IMPRESSION: No acute intrathoracic abnormality. Signed: Luisana Orosco MD Report Verified Date/Time:06/01/2018 00:53:22 Reading Location: [address] Neuro Reading Room Procedure Note Interface, External Ris In - 06/01/2018 12:55 AM CERTIFIED ORTHOTIST FINAL REPORT INDICATION: COUGH GENERALIZED BODY ACHES FEVER COMPARISON: None TECHNIQUE: Frontal and lateral views of the chest. FINDINGS: Lungs and pleura: Clear lungs. No effusion. Heart and mediastinum: Normal heart size. Unremarkable mediastinal contours. Osseous structures: No acute abnormality. Additional findings: None. IMPRESSION: No acute intrathoracic abnormality. Signed: Luisana Orosco MD Report Verified Date/Time: 06/01/2018 00:53:22 Reading Location: [address] Neuro Reading Room Performing Organization Address City/State/Zipcode Phone Number [facility] * LACERATION REPAIR (02/17/2018 9:19 PM CDT) [...] PM CDT) Narrative Performed At FINAL REPORT [facility] Three views right foot Discussion: There is what is presumably a traumatic probably subacute fracture involving the proximal metaphysis of the third toe proximal phalanx. No significant angulation or displacement. Remaining bones and soft tissues are unremarkable. Signed: Preston Galicia MD Report Verified Date/Time:02/04/2018 13:00:28 Reading Location: [facility] Radiology Reading Room Procedure Note Interface, External [...] Report Verified Date/Time: 02/04/2018 13:00:28 Reading Location: [facility] Reading Room Performing Organization Address City/State/Zipcode Phone Number [facility] * VASCULAR DIAGRAM -SCAN (01/15/2018 3:03 PM CDT) Only the most recent of 2 results within the time period is included. Narrative Performed At * Vancomycin level, trough (12/11/2017 7:39 PM CDT) Only the most recent of 3 results within the time period is included. Vancomycin Tr 22.0 (H) 10.0 - 20.0 ug/mL [facility] Specimen Blood - Arm, Left Performing Organization Address City/State/Zipcode Phone Number [facility] [address] [place] [address] MEDICAL CENTER * XR foot 2 views left (12/11/2017 9:48 AM CDT) Narrative Performed At FINAL REPORT [facility] TECHNIQUE: Frontal, lateral, and oblique radiographs of [...] MD Report Verified Date/Time:12/11/2017 11:01:46 Reading [facility]: [facility] Radiology Reading Room Procedure Note Interface, [...] Report Verified Date/Time: 12/11/2017 11:01:46 Reading Location: [facility] Radiology Reading Room Performing Organization Address City/State/Zipcode Phone Number [facility] * PT/aPTT (12/11/2017 6:33 AM CDT) Protime 14.6 11.7 - 14.7 seconds [facility] INR 1.1 <=5.9 [facility] PTT 32.4 22.5 - 36.0 seconds [facility] Specimen Blood - Arm, Left Narrative Performed At RECOMMENDED COUMADIN/WARFARIN INR THERAPY RANGES [facility] STANDARD DOSE: 2.0 - 3.0 Includes: PROPHYLAXIS for venous thrombosis, [facility] systemic embolization; TREATMENT for venous thrombosis and/or pulmonary embolus. HIGH RISK: Target INR is 2.5-3.5 for patients with mechanical heart valves. Performing Organization Address [facility]/Zipcode Phone Number [facility] [address] [place] [address] [facility] * Lipid panel (12/11/2017 6:33 AM CDT) Triglycerides 368 mg/dL [facility] Cholesterol 151 mg/dL [facility] HDL 30 mg/dL [facility] LDL Calculated 47 mg/dL [facility] Specimen Blood - Arm, Left Narrative Performed At Triglyceride Reference Range: [facility] Low Risk <150 [facility] [id number] High Risk 200-499 Very High Risk>=500 Cholesterol Reference Range: Low Risk <200 [id number] High Risk>240 HDL Cholesterol Reference Range: Low Risk >=60 High Risk <40 LDL Cholesterol Reference Range: Optimal<100 Near [id number] [id number] [id number] Very High >=190 Specimen slightly lipemic Performing Organization Address City/State/Zipcode Phone Number [facility] [address] [place] [phone] [place] [address] * BCID (10/30/2017 6:24 PM CDT) Scan Result [facility] Specimen Blood Narrative Performed At Performing Organization Address City/[facility]/Zipcode Phone Number [facility] [address] [place], [place] * C-Reactive Protein (10/30/2017 5:20 PM CDT) CRP 1.54 (H) 0.00 - 0.50 mg/dL [facility] Specimen Blood Performing Organization Address City/[facility] Phone Number [phone] [place] [address] * XR foot 3 views left (10/30/2017 5:17 PM CDT) Narrative Performed At FINAL REPORT [facility] Clinical Diagnosis: Toe pain Comparison: No comparison Views: Three views of the left toes Report: Air is visualized in the soft tissues of the third toe distally. Osseous changes are visualized most likely representing an inflammatory process involving the terminal Toft of the distal phalanx and the mid phalanx. Osteomyelitis is favored. Signed: Madelin Munoz MD Report Verified Date/Time:10/30/2017 17:45:28 Reading Location: [address] Consult Reading Room Procedure Note Interface, External [...] Report Verified Date/Time: 10/30/2017 17:45:28 Reading Location: [facility] C[facility] Consult Reading Room Performing Organization Address City/State/Zipcode Phone Number [facility] * CARDIAC CATH REPORT - SCAN (10/23/2017 4:10 PM CDT) Narrative Performed At after 08/15/2017 Insurance Payer Benefit Subscriber ID Type Phone Address Plan / Group [employer] TEX[employer] xxxxxxxxx Maps HMO ALL Contracted Advance Directives For more information, please contact: [facility] [address] [place] [address] Date Inactivated Comments Code Status Date Activated 08/11/2018 8:30 AM Full Code 06/01/2018 5:59 AM This code [...]
[2018-08-16] MEDS ORDERED: SODIUM CHLORIDE 0.9% 1000ML 1,000 ML IV STA (16:09)
[2018-08-16] MEDS ORDERED: MORPHINE SULFATE INJ 4 MG/ML INJ 1ML IV STA (16:09)
[2018-08-16] MEDS ORDERED: INSULIN REGULAR, HUMAN 100 UNIT/1 ML 3ML VIAL IV ONE (16:15)
[2018-08-16] MEDS ORDERED: KETOROLAC TROMETHAMINE 30 MG/ML VIAL IV ONE (16:15)
--- NOTE | 2018-08-16 16:21 | NUR ---
PT HIGHLY HYSTORONIC DURING EXAM. CALLING AND TALKING ON CELL WITHOUT DIFFICULTY
--- NOTE | 2018-08-16 16:22 | NUR ---
MD REQUESTED FS; PT STATES SHE JUST ATE AND DOESN'T TAKE HER INSULIN. MD NOTIFIED.
--- NOTE | 2018-08-16 16:23 | NUR ---
INSULIN REG 10 UNITS IV EDNA WITH
--- NOTE | 2018-08-16 16:36 | NUR ---
TECH ATTEMPTED IV, STATED HE WANTED TO PLACE EJ ON PT; MD REQUEST INSULIN SYRING OF LIDOCANE HE INJECTED AND PLACED 18G LEFT EJ AND LABS DRAW AND MEDS RUNNING.
--- NOTE | 2018-08-16 16:46 | NUR ---
WARM BLANKETS GIVEN FOR COMFORT
[2018-08-16] MEDS ORDERED: ONDANSETRON HCL INJ 2MG/ML 2ML 2 MG/ML VIAL IV ONE (17:00)
[2018-08-16] MEDS ORDERED: LIDOCAINE HCL 2% 2 ML AMP INJ ONE (17:00)
--- NOTE | 2018-08-16 17:20 | NUR ---
MD NOTIFIED OF BS AND SQ INSULIN ORDERED AND VERIFIED WITH MD OF REG INSULIN 10 UNITS SQ.
[2018-08-16] MEDS ORDERED: INSULIN REGULAR, HUMAN 100 UNIT/1 ML 3ML VIAL SQ ONE (17:30)
[2018-08-16] MEDS ORDERED: SODIUM CHLORIDE 0.9% 1000ML 1,000 ML IV SCH (19:00)
--- NOTE | 2018-08-16 19:00 | NUR ---
REPORT FROM EVELYNE CUEVAS; WALKING ROUNDS COMPLETED; PT CURRENTLY RESTING IN BED, AROUSES TO CERBAL STIMULI, ABLE TO ANSWER QUESTIONS
[2018-08-16] MEDS ORDERED: SODIUM CHLORIDE 0.45% 1,000 ML IV SCH (19:58)
[2018-08-16] MEDS ORDERED: DIPHENHYDRAMINE HCL INJ 50 MG/ML VIAL IV PRN (20:00)
[2018-08-16] MEDS ORDERED: DEXTROSE 50% SYRINGE 50 ML IV PRN (20:00)
[2018-08-16] MEDS ORDERED: IBUPROFEN 200 MG TAB PO PRN (20:00)
[2018-08-16] MEDS ORDERED: MORPHINE SULFATE 2 MG/ML SYR 1ML IV PRN (20:00)
[2018-08-16] MEDS ORDERED: ENALAPRILAT IV INJ 1.25 MG/ML VIAL IV PRN (20:00)
[2018-08-16] MEDS ORDERED: LABETALOL HCL 5 MG/ML 20ML VIAL IV STA (20:02)
--- NOTE | 2018-08-16 20:14 | Diagnostic Imaging Report ---
EXAMINATION: CT of the cervical spine HISTORY: Neck pain COMPARISON: None available TECHNIQUE: Multidetector helical axial images were obtained without contrast from the foramen magnum to T1. The images were reconstructed using bone and soft tissue algorithms and were viewed in axial, sagittal and coronal planes. Dose modulation, iterative reconstruction, and/or weight based adjustment of the mA/kV was utilized to reduce the radiation dose to as low as reasonably achievable. FINDINGS: Alignment: Normal alignment and lordosis Soft tissues: Mild prominence of the palatine tonsils, likely reactive. Vertebrae: Normal height and density. No acute fracture, infection or neoplasm Degenerative changes: C1-C2 to C3-C4: No abnormalities. C4-C5: Disc osteophyte complex formation asymmetric to the right, right-sided uncovertebral arthrosis. Mild right foraminal stenoses. 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 Moderate right foraminal stenoses. C6-C7 and C7-T1: No abnormalities. IMPRESSION: 1. No acute cervical spine abnormalities. 2. Moderate degenerative foraminal stenosis on the right at C5-C6 and mild at C4-C5. 3. Spondylolisthesis at C4-C5 and C5-6 without significant spinal canal stenosis. Note: Acute postraumatic spinal cord, vascular or ligamentous injuries cannot adequately be assessed by CT. Signed by: Dr. Alesha Rtaliff M.D. on 08/16/2018 8:11 PM
--- NOTE | 2018-08-16 20:20 | Diagnostic Imaging Report ---
EXAMINATION: CT of the lumbar spine HISTORY: Low back pain radiating to the bilateral lower extremities. COMPARISON: None available TECHNIQUE: Multidetector helical axial images were obtained without contrast from L1 to S1. The images were reconstructed using bone and soft tissue algorithms and were viewed in axial, sagittal, and coronal planes. Dose modulation, iterative reconstruction, and/or weight based adjustment of the mA/kV was utilized to reduce the radiation dose to as low as reasonably achievable. FINDINGS: Alignment: Normal alignment and lordosis. Vertebral bodies: Normal height and density. Paraspinal soft tissues: Partially visualized linear hyperdensities, likely vascular calcifications around the left renal pelvis. Intervertebral disks: L1-L2: Normal. L2-L3: Normal. L3-L4: Asymmetric to the right disc bulge, in combination with facet arthropathy results in moderate right and mild left foraminal stenosis.. L4-L5: Asymmetric to left disc bulge and bilateral facet arthroses as well as ligamenta flava thickening. Mild spinal canal stenosis. Moderate left and mild right foraminal stenosis.. L5-S1: Bilateral facet arthrosis without significant canal or foraminal stenosis.. IMPRESSION: 1. No acute lumbar spine abnormalities. 2. Moderate degenerative foraminal stenosis on the right at L3-L4 and on the left at L4-L5. 3. Mild degenerative spinal canal stenoses at L4-L5. Signed by: Dr. Alesha Ratliff M.D. on 08/16/2018 8:16 PM
--- OUTSIDE RECORDS SUMMARY | 2018-08-16 20:26 | XMS REPORT | Clinical Summary ---
Author Author KENISHA [facility] Address Unknown Phone Unavailable Care Team Providers Care Boot Turner Name Role Phone Viraj Lomeli MD PCP [...] as needed . 12/12/2017 Discontinued beta carotene 02802 UNIT Take 25,000 0 capsule Units by [...] solution (two) times daily for [address] [place] 2nd and 3rd toes on left foot. [...] Brian Baca MD Rehman, Javed, MD 12/10/2017 [facility] General Internal Medicine - Encounter 12/12/2017 Brijesh Carrasquillo MD Alagugurusamy, Rajkumar, MD Vincent, Toicha Ann, MD Acute osteomyelitis of toe of left foot (HCC) (Primary Dx); Dry gangrene (HCC); Pain of toe of left foot; Diabetic polyneuropathy associated with type 2 diabetes mellitus (HCC); Leukocytosis, unspecified type; Hypertensive urgency 10/30/2017 [facility] General Internal Medicine - Encounter 11/01/2017 Marck Chandra MD L CATH & CORONARY ANGIOS 10/23/2017 Surgery Marck Chandra MD 10/23/2017 Hospital Encounter Marck Chandra MD 10/22/2017 Orders Only Cardiology Marck Chandra MD 09/30/2017 Orders Only Cardiology after 08/15/2017 Family History Medical History Relation Name Comments Coronary artery disease Brother 3 brothers f CO Diabetes Brother Hypertension Brother Cancer Father Diabetes [...] Area Manufactur er 01/16/2017 [id number] / / [id number] Adhesion Barrier,Seprafilm 5x6 - Cement/Nguyễn N/A: Abdomen [id number] ler/Adhesi SURGICAL Implanted: Qty: 1 on 01/16/2015 [...] RHYTHM STRIP - SCAN 06/24/2018 1:30 PM SEAM FELLER POCT-GLUCOSE METER Routine 06/04/2018 1:05 PM SEAM FELLER POCT-GLUCOSE METER Routine 06/04/2018 8:24 AM SEAM FELLER (CELLAVISION MANUAL DIFF) Routine 06/04/2018 4:02 AM SEAM FELLER CBC W/PLT COUNT & AUTO Routine 06/04/2018 DIFFERENTIAL 4:02 AM SEAM FELLER PHOSPHORUS Routine 06/04/2018 4:02 AM SEAM FELLER MAGNESIUM Routine 06/04/2018 4:02 AM SEAM FELLER BASIC METABOLIC PANEL (7) Routine 06/04/2018 4:02 AM SEAM FELLER CBC W/PLT COUNT & AUTO Routine 06/04/2018 DIFFERENTIAL 4:02 AM SEAM FELLER POCT-GLUCOSE METER Routine 06/03/2018 9:18 PM SEAM FELLER POCT-GLUCOSE METER Routine 06/03/2018 2:59 PM SEAM FELLER RHYTHM STRIP - SCAN 06/03/2018 10:52 AM SEAM FELLER SPIN/CONCENTRATION CHARGE Routine 06/03/2018 9:39 AM SEAM FELLER AFB CULTURE + SMEAR Routine 06/03/2018 9:39 AM SEAM FELLER POCT-GLUCOSE METER Routine 06/03/2018 8:25 AM SEAM FELLER CBC W/PLT COUNT & AUTO Routine 06/03/2018 DIFFERENTIAL 4:24 AM SEAM FELLER PHOSPHORUS Routine 06/03/2018 4:24 AM SEAM FELLER MAGNESIUM Routine 06/03/2018 4:24 AM SEAM FELLER BASIC METABOLIC PANEL (7) Routine 06/03/2018 4:24 AM SEAM FELLER CBC W/PLT COUNT & AUTO Routine 06/03/2018 DIFFERENTIAL 4:24 AM SEAM FELLER POCT-GLUCOSE METER Routine 06/02/2018 9:08 PM SEAM FELLER SPIN/CONCENTRATION CHARGE Routine 06/02/2018 5:58 PM SEAM FELLER AFB CULTURE + SMEAR Routine 06/02/2018 5:58 PM SEAM FELLER POCT-GLUCOSE METER Routine 06/02/2018 5:56 PM SEAM FELLER POCT-GLUCOSE METER Routine 06/02/2018 12:23 PM SEAM FELLER POCT-GLUCOSE METER Routine 06/02/2018 8:13 AM SEAM FELLER STREP PNEUMONIAE ANTIGEN Routine 06/02/2018 5:27 AM SEAM FELLER CBC W/PLT COUNT & AUTO Routine 06/02/2018 DIFFERENTIAL 2:31 AM SEAM FELLER CBC W/PLT COUNT & AUTO Routine 06/02/2018 DIFFERENTIAL 2:31 AM SEAM FELLER HEMOGLOBIN A1C Routine 06/02/2018 2:31 AM SEAM FELLER BASIC METABOLIC PANEL (7) Routine 06/02/2018 2:31 AM SEAM FELLER POCT-GLUCOSE METER Routine 06/01/2018 9:47 PM SEAM FELLER LEGIONELLA URINE ANTIGEN Routine 06/01/2018 9:22 PM SEAM FELLER POCT-GLUCOSE METER Routine 06/01/2018 6:32 PM SEAM FELLER SPIN/CONCENTRATION CHARGE Routine 06/01/2018 5:28 PM SEAM FELLER SPUTUM CULTURE + GRAM Routine 06/01/2018 STAIN 5:28 PM SEAM FELLER AFB CULTURE + SMEAR Routine 06/01/2018 5:28 PM SEAM FELLER RESPIRATORY PANEL SLHS Routine 06/01/2018 5:25 PM SEAM FELLER POCT-GLUCOSE METER Routine 06/01/2018 3:34 PM SEAM FELLER POCT-GLUCOSE METER Routine 06/01/2018 1:07 PM SEAM FELLER POCT-GLUCOSE METER Routine 06/01/2018 10:18 AM SEAM FELLER POCT-GLUCOSE METER Routine 06/01/2018 8:55 AM SEAM FELLER POCT-GLUCOSE METER Routine 06/01/2018 4:22 AM SEAM FELLER LACTIC ACID, VENOUS STAT 06/01/2018 2:[address] CHEST PE TEST DESIGN STAT 06/01/2018 2:09 AM SEAM FELLER URINALYSIS W/ MICROSCOPIC STAT 06/01/2018 1:33 AM SEAM FELLER BLOOD CULTURE STAT 06/01/2018 1:11 AM SEAM FELLER CBC W/PLT COUNT & AUTO STAT 06/01/2018 DIFFERENTIAL 12:50 AM SEAM FELLER RAPID TROPONIN I STAT 06/01/2018 12:50 AM SEAM FELLER BASIC METABOLIC PANEL (7) STAT 06/01/2018 12:50 AM SEAM FELLER CBC W/PLT COUNT & AUTO STAT 06/01/2018 DIFFERENTIAL 12:50 AM SEAM FELLER LACTIC ACID, VENOUS STAT 06/01/2018 12:50 AM SEAM FELLER BLOOD CULTURE STAT 06/01/2018 12:50 AM SEAM FELLER ED ECG INTERPRETATION Routine 06/01/2018 12:41 AM SEAM FELLER ECG 12-LEAD Routine 06/01/2018 12:37 AM SEAM FELLER Procedure Note - Interface, External Ris In - 06/01/2018 1:40 AM SEAM FELLER Ventricula r Rate 100 BPM Atrial Rate 100 BPM P-R Interval 150 ms QRS Duration 84 ms Q-T Interval 338 ms QTC Calculatio n(Bazett) 436 ms P [place] 68 degrees R [place] 35 degrees T [place] 73 degrees Normal sinus rhythm Nonspecifi c T wave abnormalit y Abnormal ECG When compared with ECG of 7 15:14, Nonspecifi c T wave abnormalit y no longer evident in Inferior leads Nonspecifi c T wave abnormalit y now evident in Lateral leads ECG 12-LEAD STAT 06/01/2018 12:37 AM SEAM FELLER RAPID STREP A SCREEN STAT 06/01/2018 12:34 AM SEAM FELLER RAPID INFLUENZA A&B STAT 06/01/2018 SCREEN 12:34 AM SEAM FELLER XR CHEST 2 VIEWS STAT 06/01/2018 12:33 AM SEAM FELLER RI RESUPERF WND BODY Routine 02/17/2018 <2.5CM 9:19 [...] (HH)Comment: TESTED AT 70 - 110 mg/dL [facility] BSLEC-H [address] [facility] [id number] Specimen Blood Performing Organization Address City/State/Zipcode Phone Number [facility] [address] [place] [address] MEDICAL CENTER * CBC with platelet count + automated diff (08/11/2018 9:44 AM CDT) Only the most recent of 10 results within the time period is included. WBC 10.7 (H) 4.0 - 10.0 K/L [facility] [place] RBC 4.60 4.00 - 5.00 M/L [facility] [place] Hemoglobin 12.1 12.0 - 15.0 GM/DL [facility] [place] Hematocrit 38.3 36.0 - 45.0 % [facility] [place] MCV 83.2 82.0 - 99.0 fL [facility] [place] MCH 26.3 (L) 27.0 - 33.0 pg [facility] [place] MCHC 31.6 (L) 32.0 - 36.0 GM/DL [facility] [place], [facility] RDW 14.5 (H) 10.3 - 14.2 % [facility] [place] Platelets 426 150 - 430 K/CU MM [facility] [place] MPV 8.1 6.5 - 10.5 fL [facility] [place] % Neutros 64 % [facility] [place] % Lymphs 27 % [facility] [place] % Monos 7 % [facility] [place] % Eos 1 % [facility] [place] % Baso 1 % [facility] [place] # Neutros 6.85 1.80 - 8.00 K/L [facility] [place] # Lymphs 2.90 1.48 - 4.50 K/L [facility] [place] # Monos 0.77 0.00 - 1.30 K/L [facility] [place] # Eos 0.15 0.00 - 0.50 K/L [facility] [place] # Baso 0.06 0.00 - 0.20 K/L [facility] [place] Specimen Blood - Arm, Left Performing Organization Address [facility] Phone Number [address] [address] [facility] [place] * Phosphorus (08/11/2018 9:44 AM CDT) Only the most recent of 3 results within the time period is included. Phosphorus 3.6 2.5 - 4.5 mg/dL [facility] [place] Specimen Blood - Arm, Left Performing Organization Address [facility] Phone Number [address] [address] [facility] [place] * Magnesium (08/11/2018 9:44 AM CDT) Only the most recent of 3 results within the time period is included. Magnesium 1.8 1.5 - 3.0 mg/dL [facility] [place] Specimen Blood - Arm, Left Performing Organization Address [facility] Phone Number [address] [address] [facility] [place] * Creatine Kinase (CK) (08/11/2018 9:44 AM CDT) Total CK 155 25 - 235 U/L [facility] [place] Specimen Blood - Arm, Left Performing Organization Address City/[facility] Phone Number [address] [address] [facility], [facility] [place] * Basic Metabolic Panel (08/11/2018 9:44 AM CDT) Only the most recent of 10 results within the time period is included. Sodium 132 (L) 135 - 148 meq/L [facility] [place] Potassium 5.9 (H) 3.6 - 5.5 meq/L [facility] [place] Chloride 99 98 - 106 meq/L [facility] [place] CO2 22 (L) 24 - 32 meq/L [facility] [place] BUN 20 10 - 26 mg/dL [facility] [place] Creatinine 1.05 0.50 - 1.20 mg/dL [facility] [place] Glucose 446 (HH) 70 - 110 mg/dL [facility] [place] Calcium 9.3 8.5 - 10.5 mg/dL [facility] [place] EGFR 66Comment: ESTIMATED GFR IS mL/min/1.73 sq m [facility] NOT ACCURATE CREATININE [facility] CLEARANCE IN [facility] GLOMERULAR FILTRATION RATE. EMERGENCY CENTER, ESTIMATED GFR IS NOT [facility] APPLICABLE FOR DIALYSIS PATIENTS. Specimen Blood - Arm, Left Performing Organization Address City/State/Zipcode Phone Number [facility] [address] [place] [address] [facility] [place] * XR hip 2 views right (08/11/2018 9:29 AM CDT) Narrative Performed At FINAL REPORT [facility] Radiograph of the right hip Reason for [...] MD Report Verified Date/Time:08/11/2018 09:31:19 Reading Location: [facility] Radiology Reading Room Procedure Note Interface, External [...] Report Verified Date/Time: 08/11/2018 09:31:19 Reading Location: [facility] Radiology Reading Room Performing Organization Address City/State/Zipcode Phone Number [facility] * RHYTHM STRIP - SCAN (06/24/2018 1:30 PM SEAM FELLER) Only the most recent of 2 results within the time period is included. Narrative Performed At * Manual Differential (06/04/2018 4:02 AM SEAM FELLER) % Neutros 61 % [facility] % Lymphs 31 % [facility] % Monos 5 % [facility] % Eos 1 % [facility] % Baso 1 % [facility] % Atypical Lymphs 1 (H) 0 - 0 % [facility] # Neutros 6.53 (H) 1.56 - 6.13 K/ul [facility] # Lymphs 3.32 1.18 - 3.74 K/ul [facility] # Monos 0.54 (H) 0.24 - 0.36 K/uL [facility] # Eos 0.11 0.04 - 0.36 K/uL [facility] # Baso 0.11 (H) 0.01 - 0.08 K/uL [facility] # Atypical Lymphs 0.11 (H) 0.00 - 0.00 K/uL [facility] Total Counted 100 [facility] Smudge Cells Present [facility] Giant Platelet Present [facility] Anisocytosis 1+ few [facility] Platelet Conc Adequate [facility] Specimen Blood - Arm, Right Narrative Performed At Received comment: [facility] User comments: [facility] Slide comments: Performing Organization Address City/[facility] Phone Number [address] [address] [facility] * SPIN/CONCENTRATION CHARGE (06/03/2018 9:39 AM SEAM FELLER) Only the most recent of 3 results within the time period is included. Concentration charged Done [facility] Specimen Sputum - Induced Performing Organization Address City/[facility] Phone Number [address] [address] [phone] [place] [address] * AFB culture + smear (06/03/2018 9:39 AM SEAM FELLER) Only the most recent of 3 results within the time period is included. Result No acid-fast bacilli isolated [facility] in 42 days [facility] AFB Smear No acid fast bacilli seen [facility] Specimen Sputum - Induced Performing Organization Address [facility] Phone Number [address] [address] [facility] * Strep pneumoniae antigen urine (06/02/2018 5:27 AM SEAM FELLER) Strep pneumoniae Antigen Presumptive negative for Presumptive negative for [facility] pneumococcal pneumonia - see pneumococcal pneumonia - [facility] comment see comment, Presumptive negative for pneumococcal meningitis - see comment Specimen Urine - Urine, Clean Catch Narrative Performed At Presumptive negative for pneumococcal pneumonia, suggesting no current or recent [facility] pneumococcal infection. Infection due to S. pneumoniae cannot be ruled out since [facility] the antigen present in the sample may be below the detection limit of the test. Performing Organization Address [facility] Phone Number [address] [address] [facility] * Hemoglobin A1c (06/02/2018 2:31 AM SEAM FELLER) Only the most recent of 2 results within the time period is included. Hemoglobin A1C 13.4 (H) 4.3 - 6.1 % [facility] Specimen Blood - Arm, Left Performing Organization Address [facility] Phone Number [facility] [address] [place] [address] [facility] * Legionella antigen, urine (06/01/2018 9:22 PM SEAM FELLER) Legionella Urine Antigen Negative - see commentComment: [facility] Negative for L. pneumophila [facility] serogroup 1 antigen, suggesting no recent or current infection with this serogroup. Legionellosis cannot be ruled out since other serogroups and species may cause disease. Specimen Urine - Urine, Clean Catch Performing Organization Address [facility] Phone Number [address] [address] [phone] [place] [address] * Sputum Culture + Gram Stain (06/01/2018 5:28 PM SEAM FELLER) Result 1+ Normal respiratory ale [facility] Gram Stain Result 2+ White blood cells seen [facility] Gram Stain Result 0-5 epithelial cells [facility] Gram Stain Result 1+ gram negative rods [facility] Gram Stain Result 2+ gram positive cocci in [facility] Specimen Sputum - Expectorated Performing Organization Address [facility] Phone Number [address] [address] [phone] [place] [address] * RESPIRATORY PANEL SL (06/01/2018 5:25 PM SEAM FELLER) Human Metapneumovirus Not detected Not detected, Equivocal [facility] Rhinovirus Not detected Not detected, Equivocal [facility] Influenza A Not detected Not detected, Equivocal [facility] INFLUENZA A (NO SUBTYPE) Not detected, Equivocal [facility] Influenza A subtype H1 Not detected, Equivocal [facility] Influenza A Subtype H3 Not detected, Equivocal [facility] Influenza A Subtype Not detected, Equivocal [facility] H1-2009 [facility] Influenza B Not detected Not detected, Equivocal [facility] Respiratory Syncytial Detected (A)Comment: Assay is Not detected, Equivocal [facility] Virus not able differentiate between [facility] RSV A and RSV B.Contact isolation if immunosuppressed or young children. Consider stopping antibiotics. Parainfluenza Virus 1 Not detected Not detected, Equivocal [facility] Parainfluenza Virus 2 Not detected Not detected, Equivocal [facility] Parainfluenza virus 3 Not detected Not detected, Equivocal [facility] Parainfluenza Virus 4 Not detected Not detected, Equivocal [facility] Adenovirus Not detected Not detected, Equivocal [facility] Coronavirus 229E Not detected Not detected, Equivocal [facility] Coronavirus HKU1 Not detected Not detected, Equivocal [facility] Coronavirus NL63 Not detected Not detected, Equivocal [facility] Coronavirus OC43 Not detected Not detected, Equivocal [facility] Bordetella Pertussis Not detected Not detected, Equivocal [facility] Chlamydophila Pneumoniae Not detected Not detected, Equivocal [facility] Mycoplasma Pneumoniae Not detected Not detected, Equivocal [facility] Specimen Nasopharyngeal - Nasopharyngeal Swab Narrative Performed At Other viruses and bacteria not targeted by this PCR panel cannot be excluded; [facility] therefore clinical correlation and follow up of serology, culture results, and [facility] other molecular studies is required. The results are not intended to be used as the sole means for clinical diagnosis or patient management decisions. This sample was tested at the [facility] Diagnostics Laboratory using the [employer] Respiratory Panel. It is FDA cleared and has been verified and approved by the [facility] for clinical use on nasal swab specimens. It is not FDA-cleared for use on bronchial wash/lavage samples. However, for this sample type, validation was performed and test characteristics were determined and approved, by [facility] Molecular Diagnostics laboratory for clinical use under the Clinical Laboratory Improvement Amendments (CLIA) of 1988 requirements. Therefore, FDA clearance is not required.This laboratory is CLIA-certified and [employer] (CAP)-accredited to perform high complexity testing. Performing Organization Address City/[facility]/Zipcode Phone Number [facility] [address] [place] [address] [facility] * Lactic acid, venous, whole blood (06/01/2018 2:55 AM SEAM FELLER) Only the most recent of 3 results within the time period is included. Lactate, Venous 1.4 0.5 - 2.2 mmol/L [facility] [place] Specimen Blood - Arm, Left Performing Organization Address [facility]/Zipcode Phone Number [facility] [address] [place], [place] [phone] [facility] [place] * CT chest for pulmonary embolus (06/01/2018 2:09 AM SEAM FELLER) Narrative Performed At FINAL REPORT [facility] EXAMINATION:CHEST CT / PE PROTOCOL CLINICAL HISTORY: [...] is less likely. Follow up with a shredder tender peat recommended. Consider imaging surveillance after appropriate medical [...] Results discussed with Dr. Hernandez 0240 hours. fisher scallop infection control nurse (Leyla) also notified at 0300 hours. Signed: Leyla Crocker MD Report Verified Date/Time:06/01/2018 03:03:58 Reading Location: [address] Reading Room Procedure Note Interface, External Ris In - 06/01/2018 3:06 AM SEAM FELLER FINAL REPORT EXAMINATION: CHEST CT / PE [...] is less likely. Follow up with a shredder tender peat recommended. Consider imaging surveillance after appropriate medical [...] Results discussed with Dr. Hernandez 0240 hours. fisher scallop infection control nurse (Leyla) also notified at 0300 hours. Signed: Leyla Crocker MD Report Verified Date/Time: 06/01/2018 03:03:58 Reading Location: [address] Reading Room Performing Organization Address City/State/Zipcode Phone Number [facility] * Urinalysis w/Microscopic (06/01/2018 1:33 AM SEAM FELLER) Color, UA Yellow [facility] [place] Clarity, UA Clear [facility] [place] Specific [place], UA 1.015 1.001 - 1.[address] [facility] [place] pH, UA 6.5 5.0 - 8.0 [facility] Protein, UA 100 mg/dL (A) Negative [facility] [place] Glucose, UA 500 mg/dL (A) Negative [facility] [place] Ketones, UA Negative Negative [facility] [place] Bilirubin, UA Positive (A) Negative [facility] [place] Blood, UA Negative Negative [facility] [place] Nitrite, UA Negative Negative [facility] [place] Leukocytes, UA Negative Negative [facility] [place] Urobilinogen, UA 0.2 0.2 - 1.0 mg/dL [facility] Bacteria, UA Few [facility] [place] RBC, UA <5 /HPF [facility] [place] WBC, UA <5 /HPF [facility] [place] SQUAMOUS EPITHELIAL <5 /HPF [facility] [place] Specimen Source [facility] [place] Specimen Urine - Urine, Clean Catch Performing Organization Address [facility] Phone Number [phone] [facility] * Blood culture (06/01/2018 1:11 AM SEAM FELLER) Only the most recent of 6 results within the time period is included. Result No growth in 5 days [facility] Specimen Blood - Arm, Left Performing Organization Address City/[facility] Hospital[facility] Phone Number [address] [address] [facility] * Rapid Troponin I (06/01/2018 12:50 AM SEAM FELLER) Rapid Troponin I <0.05 <0.05 ng/mL [facility] [place], [facility] Specimen Blood - Arm, Right Performing Organization Address [facility]/Zipcode Phone Number [facility] [address] [place], [place] [id number] [facility], [facility], [facility] * ECG/EKG Interpretation (06/01/2018 12:41 AM SEAM FELLER) Narrative Performed At Luis Miguel Hernandez MD [...] normal. ST segments normal. T waves normal. [place] is normal. Other findings: no other findings. Clinical Impression: normal ECGECG reviewed and does not meet STEMI criteria. * ECG 12 lead (06/01/2018 12:37 AM SEAM FELLER) Narrative Performed At Ventricular Rate 100 BPM GE MUSE Atrial Rate 100 BPM P-R Interval 150 ms QRS Duration 84 ms Q-T Interval 338 ms QTC Calculation(Bazett) 436 ms P [place] 68 degrees R [place] 35 degrees T [place] 73 degrees Normal sinus rhythm Nonspecific T wave abnormalitylateral leads Abnormal ECG When compared with ECG of 27-JUL-2016 15:14, Nonspecific T wave abnormality no longer evident in Inferior leads Nonspecific T wave abnormality now evident in Lateral leads QT has shortened Confirmed by MD PALACIOS YOCHAI ([id number]) on 06/01/2018 6:46:54 AM Procedure Note Interface, External Ris In - 06/01/2018 6:47 AM SEAM FELLER Ventricular Rate 100 BPM Atrial Rate 100 BPM P-R Interval 150 ms QRS Duration 84 ms Q-T Interval 338 ms QTC Calculation(Bazett) 436 ms P [place] 68 degrees R [place] 35 degrees T [place] 73 degrees Normal sinus rhythm Nonspecific T wave abnormality lateral leads Abnormal ECG When compared with ECG of 27-JUL-2016 15:14, Nonspecific T wave abnormality no longer evident in Inferior leads Nonspecific T wave abnormality now evident in Lateral leads QT has shortened Confirmed by MD PALACIOS YOCHAI ([id number]) on 06/01/2018 6:46:54 AM Performing Organization Address City/State/[facility] Hospitalcomi Phone Number GE M[facility] * Rapid Strep A screen (06/01/2018 12:34 AM SEAM FELLER) Strep A Ag Negative Negative [facility] [place], [facility] Specimen Throat - Throat Performing Organization Address City/State/Zipcode Phone Number KENISHA BROWN [address] [place] [address] [facility], [facility] [place], [facility] * Rapid Influenza A&B Screen (06/01/2018 12:34 AM SEAM FELLER) Rapid Influenza A Antigen NEGATIVE LABORATORY FINDING Negative, Inconclusive [facility] [place] Rapid influenza B Antigen NEGATIVE LABORATORY FINDING Negative, Inconclusive [facility] Specimen Nasal - Nasopharyngeal Swab Performing Organization Address City/[facility]/Zipcode Phone Number KENISHA BROWN [address] [place] [address] [facility], [facility], [facility] * XR chest 2 views (06/01/2018 12:33 AM SEAM FELLER) Narrative Performed At FINAL REPORT [facility] INDICATION: COUGH GENERALIZED BODY ACHES FEVER COMPARISON: None TECHNIQUE: Frontal and lateral views of the chest. FINDINGS: Lungs and pleura: Clear lungs. No effusion. Heart and mediastinum: Normal heart size. Unremarkable mediastinal contours. Osseous structures: No acute abnormality. Additional findings: None. IMPRESSION: No acute intrathoracic abnormality. Signed: Luisana Orosco MD Report Verified Date/Time:06/01/2018 00:53:22 Reading Location: [address] Neuro Reading Room Procedure Note Interface, External Ris In - 06/01/2018 12:55 AM SEAM FELLER FINAL REPORT INDICATION: COUGH GENERALIZED BODY ACHES FEVER COMPARISON: None TECHNIQUE: Frontal and lateral views of the chest. FINDINGS: Lungs and pleura: Clear lungs. No effusion. Heart and mediastinum: Normal heart size. Unremarkable mediastinal contours. Osseous structures: No acute abnormality. Additional findings: None. IMPRESSION: No acute intrathoracic abnormality. Signed: Luisana Orosco MD Report Verified Date/Time: 06/01/2018 00:53:22 Reading Location: [address] Neuro Reading Room Performing Organization Address City/State/Zipcode Phone Number [facility] * LACERATION REPAIR (02/17/2018 9:19 PM CDT) [...] PM CDT) Narrative Performed At FINAL REPORT [facility] Three views right foot Discussion: There is what is presumably a traumatic probably subacute fracture involving the proximal metaphysis of the third toe proximal phalanx. No significant angulation or displacement. Remaining bones and soft tissues are unremarkable. Signed: Preston Galicia MD Report Verified Date/Time:02/04/2018 13:00:28 Reading Location: [facility] Radiology Reading Room Procedure Note Interface, External [...] Tr 22.0 (H) 10.0 - 20.0 ug/mL [facility] Specimen Blood - Arm, Left Performing Organization Address City/State/Zipcode Phone Number [facility] [address] [place] [address] MEDICAL CENTER * XR foot 2 views [...] MD Report Verified Date/Time:12/11/2017 11:01:46 Reading Location: [facility] Radiology Reading Room Procedure Note Interface, [...] Report Verified Date/Time: 12/11/2017 11:01:46 Reading Location: [facility] Radiology Reading Room Performing Organization Address City/State/Zipcode Phone Number GE [facility] * PT/aPTT (12/11/2017 6:33 AM CDT) Protime 14.6 11.7 - 14.7 seconds [facility] INR 1.1 <=5.9 [facility] PTT 32.4 22.5 - 36.0 seconds [facility] Specimen Blood - Arm, Left Narrative Performed At RECOMMENDED COUMADIN/WARFARIN INR THERAPY RANGES [facility] STANDARD DOSE: 2.0 - 3.0 Includes: PROPHYLAXIS for venous thrombosis, [facility] systemic embolization; TREATMENT for venous thrombosis and/or pulmonary embolus. HIGH RISK: Target INR is 2.5-3.5 for patients with mechanical heart valves. Performing Organization Address [facility]/Zipcode Phone Number [facility] [address] [place] [address] [facility] * Lipid panel (12/11/2017 6:33 AM CDT) Triglycerides 368 mg/dL [facility] Cholesterol 151 mg/dL [facility] HDL 30 mg/dL [facility] LDL Calculated 47 mg/dL [facility] Specimen Blood - Arm, Left Narrative Performed At Triglyceride Reference Range: [facility] Low Risk <150 [facility] [id number] High Risk 200-499 Very High Risk>=500 Cholesterol Reference Range: Low Risk <200 [id number] High Risk>240 HDL Cholesterol Reference Range: Low Risk >=60 High Risk <40 LDL Cholesterol Reference Range: Optimal<100 Near [id number] Jgqjkbqaks882-841 Uawm355-658 Very High >=190 Specimen slightly lipemic Performing Organization Address City/State/Zipcode Phone Number [facility] [address] [place] [phone] [place] [address] * BCID (10/30/2017 6:24 PM CDT) Scan Result [facility] Specimen Blood Narrative Performed At Performing Organization Address City/[facility]/Zipcode Phone Number [facility] [address] [place], [place] * C-Reactive Protein (10/30/2017 5:20 PM CDT) CRP 1.54 (H) 0.00 - 0.50 mg/dL [facility] Specimen Blood Performing Organization Address City/[facility] Phone Number [phone] [place] [address] * XR foot 3 views left (10/30/2017 [...] MD Report Verified Date/Time:10/30/2017 17:45:28 Reading Location: [address] Consult Reading Room Procedure Note Interface, [...] Report Verified Date/Time: 10/30/2017 17:45:28 Reading Location: [facility] C0[facility] Consult Reading Room Performing Organization Address City/State/Zipcode Phone Number [facility] * CARDIAC CATH REPORT - SCAN (10/23/2017 4:10 PM CDT) Narrative Performed At after 08/15/2017 Insurance Payer Benefit Subscriber ID Type Phone Address Plan / Group [employer] TEX[employer] xxxxxxxxx Maps HMO ALL Contracted Advance Directives For more information, please contact: [facility] [address] [place] [address] Date Inactivated Comments Code Status [...]
--- NOTE | 2018-08-16 20:55 | NUR ---
Received report from kerrie Heredia. Patient came to the unit via stretcher. with her and is at the bedside. Patient was asleep during arrival. Call light within reach.
[2018-08-16 21:05] VITALS: BP 192/88
[2018-08-16 21:30] VITALS: BP 192/88
[2018-08-16] MEDS: INSULIN REGULAR, HUMAN 100 UNIT/1 ML 3ML VIAL SQ SCH (21:54)
[2018-08-17] VITALS (8 sets, daily range): BP systolic 135–191; BP diastolic 70–89
[2018-08-17] MEDS: MORPHINE SULFATE INJ 4 MG/ML INJ 1ML IV PRN ×3 (03:56→19:50)
[2018-08-17 06:18] LABS: ANION GAP 12.2 mmol/L (8-16); CALCIUM 8.5 mg/dL (8.4-10.2); CREATININE, SERUM 1.4 mg/dL (0.57-1.11); POTASSIUM 4.2 mmol/L (3.5-5.1)
--- NOTE | 2018-08-17 07:11 | NUR ---
Report given to oncoming nurse. Call light within reach. at bedside
--- NOTE | 2018-08-17 07:25 | NUR ---
PATIENT IN BED RESTING WITH NO RESPIRATORY DISTRESS. IV FLUID INFUSING ORDERED. BED IN LOWER POSITION, CALL LIGHT AT REACH, FAMILY AT BED SIDE.
[2018-08-17] MEDS: INSULIN REGULAR, HUMAN 100 UNIT/1 ML 3ML VIAL SQ SCH (07:30)
[2018-08-17] MEDS ORDERED: FAMOTIDINE 20 MG/2 ML VIAL IV SCH (09:00)
[2018-08-17] MEDS: INSULIN LISPRO 100 UNIT/1 ML 3ML VIAL SQ SCH ×3 (12:15→20:50)
--- NOTE | 2018-08-17 12:23 | NUR ---
MD IN TO SEE, NOTIFIED OF ELEVATED BLOOD SUGAR. PATIENT NEW ORDERS RECEIVED.
[2018-08-17] MEDS ORDERED: SODIUM CHLORIDE 0.45% 1,000 ML IV SCH (12:30)
[2018-08-17] MEDS: INSULIN GLARGINE 100 UNITS/ML VIAL SQ SCH (12:36)
[2018-08-17] MEDS: CLONIDINE HCL 0.2 MG TAB PO PRN (12:41)
--- NOTE | 2018-08-17 13:05 | NUR ---
PATIENT OFF UNIT TO RADIOLOGY.
--- NOTE | 2018-08-17 13:51 | NUR ---
PATIENT BACK TO UNIT FROM RADIOLOGY. IV FLUID IN PROGRESS, CALL LIGHT AT REACH.
--- NOTE | 2018-08-17 14:56 | NUR ---
SOCIAL WORK INITIAL ASSESSMENT Cotton Agent to bedside to discuss plan of care with patient/family. CM/SW role and care transitions discussed. Anticipated discharge plan discussed along with duration of care. CM/SW discussed patients right to make decisions in care. CM/SW work hours given. Patient lives: IN HOUSE WITH FAMILY Admit/Transfer: VIA ED POA/Emergency contact: LUIS [phone] DAUGHTER PORSHA [phone] Current/Previous Home Health: NONE PCP/Follow-up Care: SEAM Current/Previous DME: NONE Other Services: NONE Employment Status: RETIRED Areas of Concerns: NONE Referral Needs: NONE Education Needs: NONE IMM/PHAN given and signed (if applicable): PHAN Goal for discharge: RETURN HOME NO NEEDS CM/SW left business card at the bedside with contact information. Name and number was also written on the patients whiteboard. Patient verbalized understanding of discussion. CM will follow-up with ongoing discharge and transition of care needs.
[2018-08-17] MEDS: HYDRALAZINE HCL 25 MG TAB PO SCH ×2 (15:30→20:58)
--- NOTE | 2018-08-17 15:30 | NUR ---
PATIENT NOTED WITH B/P OF 191/89, PRN CLONIDINE GIVEN. B/P RECHECKED WITH THE READING OF 177/79. SCHEDULED MEDICATION GIVEN, WILL CLOSELY MONITOR.
--- NOTE | 2018-08-17 16:02 | Diagnostic Imaging Report ---
History: Low back pain Comparison studies: CT of the lumbar spine 08/16/2018 Technique: Sagittal, coronal and axial T2 , sagittal T1 and IR, axial spin density oblique. Intravenous contrast: None Findings: Number of lumbar vertebral bodies:5 Alignment: Straightening of the normal lordosis.No scoliosis. Soft tissues: No T2 hyperintense inflammatory changes. Paraspinal muscles: No signal abnormalities. No atrophy. Lower thoracic cord:Normal in signal and morphology. The tip of the conus is at L1. Cauda equina: No masses. No arachnoiditis. Vertebrae: Normal in height and signal intensity. No compression fractures, infection or neoplasm. Degenerative changes: L1-L2: Patent canal and foramina. L2-L3: Patent canal and foramina. L3-L4: Disc degeneration with loss of T2 signal. Mild diffuse disc bulge and mild facet hypertrophy results in mild canal stenosis and mild right foraminal narrowing. Trace of fluid at the bilateral facet joints. L4-L5: Disc degeneration with loss of T2 signal. Asymmetric left disc bulge with superimposed left foraminal disc protrusion and mild facet hypertrophy results in mild left foraminal narrowing without significant canal stenosis. Trace of fluid of the bilateral facet joint. L5-S1: Mild facet hypertrophy with patent canal and foramina. Additional findings: None IMPRESSION: No cord compression or acute spinal abnormality. Mild right generative foraminal narrowing at L3-L4. Mild left foraminal narrowing secondary to small left disc protrusion at L4-L5. Mild facet hypertrophy lower lumbar spine with mild synovitis changes at L3-L4 and L4-L5. Signed by: DR Pedro Singh M.D. on 08/17/2018 3:59 PM
--- NOTE | 2018-08-17 16:04 | NUR ---
Nutrition Intervention Note RD Recommendation(s) for Physician: -Continue current diet. -Glucerna once per day. Plan of Care: RD following, monitoring for tolerance and adequacy. ONS rec. Nutrition reason for involvement: Nutrition Risk Trigger-MST 2 RD Assessment (08/17): 58 YOF admitted for acute hyperglycemia, back pain of lumbosacral region with sciatica. Pt was seen post MRI procedure; pt was lethargic and fatigued. Pt reports a poor intake and decreased appetite for several days before admission and during this hospital stay. Pt denies any weight loss. Pt stated she does not feel like eating because of her back pain. Recommended for pt to receive Glucerna during her stay once a day to help the pt meet her caloric and protein needs while in the hospital, pt agreed to supplement initiation. Noted-Gluc elevated. Pt could not answer questions regarding N/V/D/C d/t fatigue. Will continue to monitor. Principal Problems/Diagnoses: Acute hyperglycemia, back pain of lumbosacral region with sciatica PMH: Diabetes, hypertension. GI: Abdomen: soft, non tender Skin: No pressure wound noted. Labs: 08/17: Creat 1.40 H, Gluc 261 H Meds: 08/17: Insulin, NaCl Ht: 66in Wt: 178 lbs BMI: 28.7 IBW: 130 lbs Malnutrition Evaluation (08/17/18) The patient does not meet criteria for a specified degree of malnutrition at this time. Will re-evaluate at follow-up as appropriate. Nutrition Prescription (Diet Order): ADA 1800 Estimated Nutritional Needs: Calories: 0754-7238(18-22 kcal/kg/d) Weight used : ABW Protein : 80-120(1-1.5 g/kg/d) Weight used: ABW Diet Adequacy: N/A Diet Education Needs Assessment: Diet education indicated, but patient not appropriate for education at this time. Nutrition Care Level: Low Nutrition Diagnosis: Inadequate energy intake related to medical condition as evidenced by pts reports of poor appetite. Goal: Patient will meet 75-100% of estimated needs by follow up Progress: (N/A) Interventions: Carb modified diet, Commercial beverage Monitoring/Evaluation: -Total energy intake, Total protein intake, Modified diet, Liquid supplement, Weight change Signed: Amber Zaragoza, MS, RD, LD
[2018-08-17] MEDS ORDERED: INSULIN LISPRO 100 UNIT/1 ML 3ML VIAL SQ SCH (16:30)
--- NOTE | 2018-08-17 19:00 | NUR ---
Report and rounds completed. Patient in bed resting in high semi-lr position, Call light within reach. Will continue to monitor.
[2018-08-17] MEDS: ONDANSETRON HCL INJ 2MG/ML 2ML 2 MG/ML VIAL IV PRN (19:50)
[2018-08-17] MEDS: HYDROCODONE/APAP 7.5MG-325MG 1 EA TAB PO PRN (22:11)
[2018-08-18] VITALS: BP 184/79
[2018-08-18] MEDS: ONDANSETRON HCL INJ 2MG/ML 2ML 2 MG/ML VIAL IV PRN ×2 (00:20→05:40)
[2018-08-18] MEDS: MORPHINE SULFATE INJ 4 MG/ML INJ 1ML IV PRN ×3 (00:20→11:22)
[2018-08-18] MEDS: CLONIDINE HCL 0.2 MG TAB PO PRN (01:07)
[2018-08-18] MEDS: HYDROCODONE/APAP 7.5MG-325MG 1 EA TAB PO PRN (03:20)
[2018-08-18 04:00] VITALS: BP 181/79
[2018-08-18 05:28] LABS: BASOPHILS # (AUTO) 0.1 (0.0-0.1); BASOPHILS % 0.4 % (0.0-1.0); EOSINOPHILS # (AUTO) 0.2 (0.0-0.4); EOSINOPHILS % 1.9 % (0.0-6.0); HEMATOCRIT 30.1 % (34.2-44.1); HEMOGLOBIN 9.4 g/dL (12.0-16.0); LYMPHOCYTES # (AUTO) 5.1 (1.0-3.2); LYMPHOCYTES % 45.8 % (18.0-39.1); MEAN CORPUSCULAR HEMOGLOBIN 26.4 pg (28-32); MEAN CORPUSCULAR HGB CONC 31.2 g/dL (31-35); MEAN CORPUSCULAR VOLUME 84.6 fL (81-99); MONOCYTES # (AUTO) 0.9 (0.2-0.8); MONOCYTES % 7.8 % (4.4-11.3); NEUTROPHILS # (AUTO) 4.9 (2.1-6.9); NEUTROPHILS % 43.8 % (38.7-80.0); PLATELET COUNT 316 x10e3/uL (140-360); RED BLOOD COUNT 3.56 x10e6/uL (3.6-5.1); RED CELL DISTRIBUTION WIDTH 14.7 % (11.7-14.4)
[2018-08-18 05:42] LABS: INR 0.87; PROTHROMBIN TIME 12.3 seconds (11.9-14.5)
[2018-08-18 05:43] LABS: PARTIAL THROMBOPLASTIN TIME 24.9 seconds (23.8-35.5)
[2018-08-18 05:45] LABS: ANION GAP 9.4 mmol/L (8-16); CALCIUM 8.7 mg/dL (8.4-10.2); CREATININE, SERUM 1.24 mg/dL (0.57-1.11); MAGNESIUM 1.9 MG/DL (1.3-2.1); POTASSIUM 4.4 mmol/L (3.5-5.1)
--- NOTE | 2018-08-18 06:00 | NUR ---
Resting in bed, eyes closed, resp even and unlabored. Call light within reach. Will continue to monitor.
--- NOTE | 2018-08-18 07:21 | NUR ---
PATIENT IN BED RESTING WITH EYES CLOSED, NO RESPIRATORY DISTRESS OBSERVED. ALL PERSONAL ITEMS CLOSE TO PATIENT. CALL LIGHT AT REACH.
[2018-08-18 07:25] VITALS: BP 177/81
[2018-08-18] MEDS: INSULIN LISPRO 100 UNIT/1 ML 3ML VIAL SQ SCH ×2 (07:30→11:30)
[2018-08-18 07:42] VITALS: BP 177/81
[2018-08-18 08:58] LABS: EOSINOPHILS % (MANUAL) 1 % (0-7); LYMPHOCYTES % (MANUAL) 46 % (19-48); MONOCYTES % (MANUAL) 8 % (3.4-9.0); NEUTROPHILS % (MANUAL) 43 % (40-74)
[2018-08-18 08:59] LABS: HYPOCHROMASIA SLIGHT; PLATELET ESTIMATE ADEQUATE; RBC MORPHOLOGY COMMENT NORMAL
[2018-08-18 09:00] LABS: ANISOCYTOSIS SLIGHT; PLATELET MORPHOLOGY COMMENT NORMAL
[2018-08-18] MEDS: HYDRALAZINE HCL 25 MG TAB PO SCH (09:10)
[2018-08-18] MEDS: INSULIN GLARGINE 100 UNITS/ML VIAL SQ SCH (09:39)
--- NOTE | 2018-08-18 11:25 | NUR ---
PATIENT AMBULATED IN ROOM WITH PHYSICAL THERAPY . C/O GENERALIZED PAIN. PAIN MEDICATION GIVEN ORDERED. WILL CLOSELY MONITOR.
[2018-08-18] MEDS ORDERED: METOPROLOL TARTRATE 50 MG TAB PO SCH (11:30)
[2018-08-18 11:56] VITALS: BP 148/70
[2018-08-18] MEDS ORDERED: METHYLPREDNISOLONE SOD SUCC 40 MG/ML VIAL 1ML IV ONE (12:30)
[2018-08-18] MEDS ORDERED: TYLENOL WITH C1 EACH PO (14:25)
--- NOTE | 2018-08-18 15:00 | NUR ---
PATIENT DISCHARGED HOME. DISCHARGE INSTRUCTIONS, PRESCRIPTION, AND FOLLOW UP GIVEN TO PATIENT, SHE VERBALIZED UNDERSTANDING. IV TO LEFT EJ REMOVED WITH TIP INTACT. ALL PERSONAL ITEMS TAKEN WITH PATIENT. PATIENT PROVIDED WITH HER NEW WALKER. LEFT UNIT PER WHEEL CHAIR TO FRONT LOBBY.
--- NOTE | 2018-08-19 02:50 | Discharge Summary ---
PRIMARY CARE DOCTOR: Dr. Viraj Lomeli. FINAL DIAGNOSIS: Lumbar spine stenosis. SECONDARY DIAGNOSES: 1. Uncontrolled diabetes. 2. Uncontrolled hypertension. 3. Mild acute kidney injury due to Toradol, resolving. 4. Peripheral vascular disease. 5. Prior splenectomy. CONSULTANTS: None. PROCEDURES/STUDIES PERFORMED: 1. MRI of the lumbar spine. 2. CT of the lumbar spine. HISTORY: Per H and P. HOSPITAL COURSE: The patient was admitted with severe back pain to the point that she could not even walk. There were some spinal point tenderness, but no fever. CRP is elevated, the likely is due to inflammation given the fact that she has no leukocytosis and no fever. Toradol was given, however, it was and her creatinine did bump a little bit, with IV fluid this came back down. MRI shows mild right degenerative foraminal narrowing at L3 and L4. No compression. On the day of discharge, the patient was doing better. She was able to ambulate 30 feet with physical therapist with a walker. I will go ahead and arrange a walker for her. Also, we will arrange a home PT. I will also give her some Tylenol No. 3 for pain control. The patient was instructed to avoid NSAIDs given her chronic kidney disease. The patient was seen and examined today. It took 32 minutes total to discharge this patient. CONDITION ON DISCHARGE: Stable. DISCHARGE MEDICATIONS: Please see medication reconciliation form. MD LILIYA Joe/JONATHAN /[id number] cc: [facility]
--- NOTE | 2018-08-19 10:36 | NUR ---
HOME HEALTH DISCHARGE NOTE PATIENT ADDRESS WHERE SERVICE WILL BE RECEIVED: [address] [place] [place]. [address] PATIENT CONTACT NUMBER: [phone] NAME OF HOME HEALTH COMPANY: [employer] TELEPHONE/FAX NUMBER OF COMPANY: OFF: [phone] / FAX: [phone] ADDRESS OF COMPANY: [id number] [address] [place] [address] SERVICES TO RECEIVE: PHYSICAL THERAPY ANTICIPATED DATE SERVICES WILL BEGIN: 08/20/2018 Please call the company above if you have not received a call to schedule a home visit within 24 hours of discharge. Addendum: 08/19/18 at 1042 by Aliyah Leavitt CM CATY MELENDREZ WAS PROVIDED TO PT FROM THE [facility].
== END 2018-08-18 15:04 | disposition home or self-care (01) ==
LOC: FSED 15:42 → ERHOLD 19:58 → IMCU 20:52
PROVIDERS: ADMIT Internal Medicine; ATTEND Internal Medicine
DX: M51.16 Intervertebral disc disorders with radiculopathy, lumbar region (principal); E11.65 Type 2 diabetes mellitus with hyperglycemia; I16.0 Hypertensive urgency; Z88.1 Allergy status to other antibiotic agents; K21.9 Gastro-esophageal reflux disease without esophagitis; Z83.3 Family history of diabetes mellitus; I10 Essential (primary) hypertension; R32 Unspecified urinary incontinence; N17.9 Acute kidney failure, unspecified; I73.9 Peripheral vascular disease, unspecified; Z90.81 Acquired absence of spleen; T39.8X5A Adverse effect of other nonopioid analgesics and antipyretics, not elsewhere classified, initial encounter; Y92.230 Patient room in hospital as the place of occurrence of the external cause; Z79.4 Long term (current) use of insulin
CPT/HCPCS: 36415 ×3; 72125; 72131; 72148; 80048 ×2; 80053; 81003; 82948 ×3; 83036; 83735; 85025 ×2; 85610; 85730; 86140; 97116; 97162; 99284; G0378 ×3; J1815; J1817; J1885; J2001; J2270 ×3; J2405 ×3; J2920; J7030

== ENCOUNTER 2018-12-01 18:06 | Emergency (ER) | payer OTHER ==
[~2018-12-01] VITALS: Ht 165.1 cm; Wt 78.9 kg
--- OUTSIDE RECORDS SUMMARY | 2018-12-01 18:11 | XMS REPORT | Clinical Summary ---
Author Author KENISHA FreespeeSt. [facility] HospitalBidThatProjectTr[facility] Address Unknown Phone Unavailable Care Team Providers Care Remote Sensing Specialist Name Role Phone Viraj Lomeli MD [...] as needed . 12/12/2017 Discontinued beta carotene [id number] UNIT Take 25,000 0 capsule Units by [...] mouth 3 6 (three) times daily . 02/04/2018 Discontinued aspirin 81 MG EC tablet [...] of Breath for up to 10 days. 08/16/2018 diazePAM (VALIUM) 2 MG Take 1 tablet 10 tablet 0 tablet (2 mg total) 9 by mouth every 8 (eight) hours as needed for Anxiety (muscle spasm) for up to 5 days. Max Daily Amount: 6 mg 08/21/2018 ibuprofen (ADVIL,MOTRIN) Take 1 tablet 40 tablet 0 600 MG tablet (600 mg 9 total) by mouth every 6 (six) hours as needed for Pain for up to 10 days. 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 01/16/2017 [id number] / / [id number] Adhesion Barrier,Seprafilm 5x6 - Cement/Nguyễn N/A: Abdomen GENZYME [id number] ler/Adhesi SURGICAL Implanted: Qty: 1 on 01/16/2015 by [employer] Cesar Collazo MD Procedures Comments Procedure Name [...] RHYTHM STRIP - SCAN 06/24/2018 1:30 PM PLASTICS FITTER POCT-GLUCOSE METER Routine 06/04/2018 1:05 PM PLASTICS FITTER POCT-GLUCOSE METER Routine 06/04/2018 8:24 AM PLASTICS FITTER (CELLAVISION MANUAL DIFF) Routine 06/04/2018 4:02 AM PLASTICS FITTER CBC W/PLT COUNT & AUTO Routine 06/04/2018 DIFFERENTIAL 4:02 AM PLASTICS FITTER PHOSPHORUS Routine 06/04/2018 4:02 AM PLASTICS FITTER MAGNESIUM Routine 06/04/2018 4:02 AM PLASTICS FITTER BASIC METABOLIC PANEL (7) Routine 06/04/2018 4:02 AM PLASTICS FITTER CBC W/PLT COUNT & AUTO Routine 06/04/2018 DIFFERENTIAL 4:02 AM PLASTICS FITTER POCT-GLUCOSE METER Routine 06/03/2018 9:18 PM PLASTICS FITTER POCT-GLUCOSE METER Routine 06/03/2018 2:59 PM PLASTICS FITTER RHYTHM STRIP - SCAN 06/03/2018 10:52 AM PLASTICS FITTER SPIN/CONCENTRATION CHARGE Routine 06/03/2018 9:39 AM PLASTICS FITTER AFB CULTURE + SMEAR Routine 06/03/2018 9:39 AM PLASTICS FITTER POCT-GLUCOSE METER Routine 06/03/2018 8:25 AM PLASTICS FITTER CBC W/PLT COUNT & AUTO Routine 06/03/2018 DIFFERENTIAL 4:24 AM PLASTICS FITTER PHOSPHORUS Routine 06/03/2018 4:24 AM PLASTICS FITTER MAGNESIUM Routine 06/03/2018 4:24 AM PLASTICS FITTER BASIC METABOLIC PANEL (7) Routine 06/03/2018 4:24 AM PLASTICS FITTER CBC W/PLT COUNT & AUTO Routine 06/03/2018 DIFFERENTIAL 4:24 AM PLASTICS FITTER POCT-GLUCOSE METER Routine 06/02/2018 9:08 PM PLASTICS FITTER SPIN/CONCENTRATION CHARGE Routine 06/02/2018 5:58 PM PLASTICS FITTER AFB CULTURE + SMEAR Routine 06/02/2018 5:58 PM PLASTICS FITTER POCT-GLUCOSE METER Routine 06/02/2018 5:56 PM PLASTICS FITTER POCT-GLUCOSE METER Routine 06/02/2018 12:23 PM PLASTICS FITTER POCT-GLUCOSE METER Routine 06/02/2018 8:13 AM PLASTICS FITTER STREP PNEUMONIAE ANTIGEN Routine 06/02/2018 5:27 AM PLASTICS FITTER CBC W/PLT COUNT & AUTO Routine 06/02/2018 DIFFERENTIAL 2:31 AM PLASTICS FITTER CBC W/PLT COUNT & AUTO Routine 06/02/2018 DIFFERENTIAL 2:31 AM PLASTICS FITTER HEMOGLOBIN A1C Routine 06/02/2018 2:31 AM PLASTICS FITTER BASIC METABOLIC PANEL (7) Routine 06/02/2018 2:31 AM PLASTICS FITTER POCT-GLUCOSE METER Routine 06/01/2018 9:47 PM PLASTICS FITTER LEGIONELLA URINE ANTIGEN Routine 06/01/2018 9:22 PM PLASTICS FITTER POCT-GLUCOSE METER Routine 06/01/2018 6:32 PM PLASTICS FITTER SPIN/CONCENTRATION CHARGE Routine 06/01/2018 5:28 PM PLASTICS FITTER SPUTUM CULTURE + GRAM Routine 06/01/2018 STAIN 5:28 PM PLASTICS FITTER AFB CULTURE + SMEAR Routine 06/01/2018 5:28 PM PLASTICS FITTER RESPIRATORY PANEL [facility] Routine 06/01/2018 5:25 PM PLASTICS FITTER POCT-GLUCOSE METER Routine 06/01/2018 3:34 PM PLASTICS FITTER POCT-GLUCOSE METER Routine 06/01/2018 1:07 PM PLASTICS FITTER POCT-GLUCOSE METER Routine 06/01/2018 10:18 AM PLASTICS FITTER POCT-GLUCOSE METER Routine 06/01/2018 8:55 AM PLASTICS FITTER POCT-GLUCOSE METER Routine 06/01/2018 4:22 AM PLASTICS FITTER LACTIC ACID, VENOUS STAT 06/01/2018 2:[address] CHEST PE TEST DESIGN STAT 06/01/2018 2:09 AM PLASTICS FITTER URINALYSIS W/ MICROSCOPIC STAT 06/01/2018 1:33 AM PLASTICS FITTER BLOOD CULTURE STAT 06/01/2018 1:11 AM PLASTICS FITTER CBC W/PLT COUNT & AUTO STAT 06/01/2018 DIFFERENTIAL 12:50 AM PLASTICS FITTER RAPID TROPONIN I STAT 06/01/2018 12:50 AM PLASTICS FITTER BASIC METABOLIC PANEL (7) STAT 06/01/2018 12:50 AM PLASTICS FITTER CBC W/PLT COUNT & AUTO STAT 06/01/2018 DIFFERENTIAL 12:50 AM PLASTICS FITTER LACTIC ACID, VENOUS STAT 06/01/2018 12:50 AM PLASTICS FITTER BLOOD CULTURE STAT 06/01/2018 12:50 AM PLASTICS FITTER ED ECG INTERPRETATION Routine 06/01/2018 12:41 AM PLASTICS FITTER ECG 12-LEAD Routine 06/01/2018 12:37 AM PLASTICS FITTER Procedure Note - Interface, External Ris In - 06/01/2018 1:40 AM PLASTICS FITTER Ventricula r Rate 100 BPM Atrial Rate 100 BPM P-R Interval 150 ms QRS Duration 84 ms Q-T Interval 338 ms QTC Calculatio n(Bazett) 436 ms P [place] 68 degrees R [place] 35 degrees T [place] 73 degrees Normal sinus rhythm Nonspecifi c T wave abnormalit y Abnormal ECG When compared with ECG of 7 15:14, Nonspecifi c T wave abnormalit y no longer evident in Inferior leads Nonspecifi c T wave abnormalit y now evident in Lateral leads ECG 12-LEAD STAT 06/01/2018 12:37 AM PLASTICS FITTER RAPID STREP A SCREEN STAT 06/01/2018 12:34 AM PLASTICS FITTER RAPID INFLUENZA A&B STAT 06/01/2018 SCREEN 12:34 AM PLASTICS FITTER XR CHEST 2 VIEWS STAT 06/01/2018 12:33 AM PLASTICS FITTER NE RESUPERF WND BODY Routine 02/17/2018 <2.5CM 9:19 [...] POCT-GLUCOSE METER Routine 12/10/2017 7:11 PM CDT after 11/30/2017 Results * POC-Glucose meter (08/11/2018 11:48 AM CDT) Only the most recent of 23 results within the time period is included. POC-Glucose Meter 405 (HH)Comment: TESTED AT 70 - 110 mg/dL [facility] BSLEC-H [id number] [facility] [facility] [address] Specimen Blood Performing Organization Address City/State/Zipcode Phone Number [facility] [address] [place] [address] MEDICAL CENTER * CBC with platelet count + automated diff (08/11/2018 9:44 AM CDT) Only the most recent of 8 results within the time period is included. WBC 10.7 (H) 4.0 - 10.0 K/L [facility] RBC 4.60 4.00 - 5.00 M/L [facility] Hemoglobin 12.1 12.0 - 15.0 GM/DL [facility] Hematocrit 38.3 36.0 - 45.0 % [facility] MCV 83.2 82.0 - 99.0 fL [facility] MCH 26.3 (L) 27.0 - 33.0 pg [facility] MCHC 31.6 (L) 32.0 - 36.0 GM/DL [facility] RDW 14.5 (H) 10.3 - 14.2 % [facility] Platelets 426 150 - 430 K/CU MM [facility] MPV 8.1 6.5 - 10.5 fL [facility] % Neutros 64 % [facility] % Lymphs 27 % [facility] % Monos 7 % [facility] % Eos 1 % [facility] % Baso 1 % [facility] # Neutros 6.85 1.80 - 8.00 K/L [facility] # Lymphs 2.90 1.48 - 4.50 K/L [facility] # Monos 0.77 0.00 - 1.30 K/L [facility] # Eos 0.15 0.00 - 0.50 K/L [facility] # Baso 0.06 0.00 - 0.20 K/L [facility] Specimen Blood Performing Organization Address City/[facility] Phone Number [address] [id number] [facility] * Phosphorus (08/11/2018 9:44 AM CDT) Only the most recent of 3 results within the time period is included. Phosphorus 3.6 2.5 - 4.5 mg/dL [facility] Specimen Blood Performing Organization Address City/[facility] Phone Number [address] [address] [facility] * Magnesium (08/11/2018 9:44 AM CDT) Only the most recent of 3 results within the time period is included. Magnesium 1.8 1.5 - 3.0 mg/dL [facility] Specimen Blood Performing Organization Address City/[facility] Phone Number [address] [address] [facility] * Creatine Kinase (CK) (08/11/2018 9:44 AM CDT) Total CK 155 25 - 235 U/L [facility] Specimen Blood Performing Organization Address City/[facility] Phone Number [address] [address] [facility] * Basic Metabolic Panel (08/11/2018 9:44 AM CDT) Only the most recent of 8 results within the time period is included. Sodium 132 (L) 135 - 148 meq/L [facility] Potassium 5.9 (H) 3.6 - 5.5 meq/L [facility] Chloride 99 98 - 106 meq/L [facility] CO2 22 (L) 24 - 32 meq/L [facility] BUN 20 10 - 26 mg/dL [facility] Creatinine 1.05 0.50 - 1.20 mg/dL [facility] Glucose 446 (HH) 70 - 110 mg/dL [facility] Calcium 9.3 8.5 - 10.5 mg/dL [facility] EGFR 66Comment: ESTIMATED GFR IS mL/min/1.73 sq m [facility] NOT ACCURATE CREATININE [facility] CLEARANCE IN [facility] GLOMERULAR FILTRATION RATE. EMERGENCY CENTER, ESTIMATED GFR IS NOT [facility] APPLICABLE FOR DIALYSIS PATIENTS. Specimen Blood Performing Organization Address City/State/Zipcode Phone Number [facility] [address] [place] [address] [facility] * XR hip 2 views right (08/11/2018 9:29 AM CDT) Specimen Narrative Performed At FINAL REPORT Clean TeQ Radiograph of the right hip Reason for [...] MD Report Verified Date/Time:08/11/2018 09:31:19 Reading Location: [facility] Radiology Reading Room Procedure Note Interface, [...] Report Verified Date/Time: 08/11/2018 09:31:19 Reading Location: [facility] Rad[facility] Reading Room Performing Organization Address City/State/Zipcode Phone Number [facility] * RHYTHM STRIP - SCAN (06/24/2018 1:30 PM PLASTICS FITTER) Only the most recent of 2 results within the time period is included. Narrative Performed At * Manual Differential (06/04/2018 4:02 AM PLASTICS FITTER) % Neutros 61 % [facility] % Lymphs 31 % [facility] % Monos 5 % [facility] % Eos 1 % [facility] % Baso 1 % [facility] % Atypical Lymphs 1 (H) 0 - 0 % [facility] # Neutros 6.53 (H) 1.56 - 6.13 K/ul [facility] # Lymphs 3.32 1.18 - 3.74 K/ul [facility] # Monos 0.54 (H) 0.24 - 0.36 K/uL [facility] # Eos 0.11 0.04 - 0.36 K/uL [facility] # Baso 0.11 (H) 0.01 - 0.08 K/uL [facility] # Atypical Lymphs 0.11 (H) 0.00 - 0.00 K/uL [facility] Total Counted 100 [facility] Smudge Cells Present [facility] Giant Platelet Present [facility] Anisocytosis 1+ few [facility] Platelet Conc Adequate [facility] Specimen Blood Narrative Performed At Received comment: [facility] User comments: [facility] Slide comments: Performing Organization Address City/[facility] Centercode [place] [address] [phone] [place] [address] * SPIN/CONCENTRATION CHARGE (06/03/2018 9:39 AM PLASTICS FITTER) Only the most recent of 3 results within the time period is included. Concentration charged Done [facility] Specimen Sputum - Induced Performing Organization Address City/[facility] [place] [address] [facility] * AFB culture + smear (06/03/2018 9:39 AM PLASTICS FITTER) Only the most recent of 3 results within the time period is included. Result No acid-fast bacilli isolated [facility] in [address] [facility] AFB Smear No acid fast bacilli seen [facility] Specimen Sputum - Induced Performing Organization Address [facility] Cent[facility]ode Phone Number [address] [address] [facility] * Strep pneumoniae antigen urine (06/02/2018 5:27 AM PLASTICS FITTER) Strep pneumoniae Antigen Presumptive negative for Presumptive negative for [facility] pneumococcal pneumonia - see pneumococcal pneumonia - [facility] comment see comment, Presumptive negative for pneumococcal meningitis - see comment Specimen Urine Narrative Performed At Presumptive negative for pneumococcal pneumonia, suggesting no current or recent [facility] pneumococcal infection. Infection due to S. pneumoniae cannot be ruled out since [facility] the antigen present in the sample may be below the detection limit of the test. Performing Organization Address City/[facility]/Zipcode Phone Number [address] [phone] [facility] * Hemoglobin A1c (06/02/2018 2:31 AM PLASTICS FITTER) Only the most recent of 2 results within the time period is included. Hemoglobin A1C 13.4 (H) 4.3 - 6.1 % [facility] Specimen Blood Performing Organization Address City/[facility]/Zipcode Phone Number [address] [address] [facility] * Legionella antigen, urine (06/01/2018 9:22 PM PLASTICS FITTER) Legionella Urine Antigen Negative - see commentComment: [facility] Negative for L. pneumophila [facility] serogroup 1 antigen, suggesting no recent or current infection with this serogroup. Legionellosis cannot be ruled out since other serogroups and species may cause disease. Specimen Urine Performing Organization Address [facility] Phone Number [address] [address] [facility] * Sputum Culture + Gram Stain (06/01/2018 5:28 PM PLASTICS FITTER) Result 1+ Normal respiratory ale [facility] Gram Stain Result 2+ White blood cells seen [facility] Gram Stain Result 0-5 epithelial cells [facility] Gram Stain Result 1+ gram negative rods [facility] Gram Stain Result 2+ gram positive cocci in [facility] Specimen Sputum - Expectorated Performing Organization Address [facility]/Zipcode Phone Number [address] [address] [facility] * Respiratory Panel [facility] (06/01/2018 5:25 PM PLASTICS FITTER) Human Metapneumovirus Not detected Not detected, Equivocal [facility] Rhinovirus Not detected Not detected, Equivocal [facility] Influenza A Not detected Not detected, Equivocal [facility] INFLUENZA A (NO SUBTYPE) Not detected, Equivocal [facility] Influenza A subtype H1 Not detected, Equivocal [facility] Influenza A Subtype H3 Not detected, Equivocal [facility] Influenza A Subtype Not detected, Equivocal [facility] H1-2009 [facility] Influenza B Not detected Not detected, Equivocal [facility] Respiratory Syncytial Detected (A)Comment: Assay is Not detected, Equivocal [facility] Virus not able differentiate between [facility] RSV A and RSV B.Contact isolation if immunosuppressed or young children. Consider stopping antibiotics. Parainfluenza Virus 1 Not detected Not detected, Equivocal [facility] Parainfluenza Virus 2 Not detected Not detected, Equivocal [facility] Parainfluenza virus 3 Not detected Not detected, Equivocal [facility] Parainfluenza Virus 4 Not detected Not detected, Equivocal [facility] Adenovirus Not detected Not detected, Equivocal [facility] Coronavirus 229E Not detected Not detected, Equivocal [facility] Coronavirus HKU1 Not detected Not detected, Equivocal [facility] Coronavirus NL63 Not detected Not detected, Equivocal [facility] Coronavirus OC43 Not detected Not detected, Equivocal [facility] Bordetella Pertussis Not detected Not detected, Equivocal [facility] Chlamydophila Pneumoniae Not detected Not detected, Equivocal [facility] Mycoplasma Pneumoniae Not detected Not detected, Equivocal [facility] Specimen Nasopharyngeal Narrative Performed At Other viruses and bacteria not targeted by this PCR panel cannot be excluded; [facility] therefore clinical correlation and follow up of serology, culture results, and [facility] other molecular studies is required. The results are not intended to be used as the sole means for clinical diagnosis or patient management decisions. This sample was tested at the [facility] using the [employer] Respiratory Panel. It is FDA cleared and has been verified and approved by the [facility] for clinical use on nasal swab specimens. It is not FDA-cleared for use on bronchial wash/lavage samples. However, for this sample type, validation was performed and test characteristics were determined and approved, by [facility] for clinical use under the Clinical Laboratory Improvement Amendments (CLIA) of 1988 requirements. Therefore, FDA clearance is not required.This laboratory is CLIA-certified and [employer] (CAP)-accredited to perform high complexity testing. Performing Organization Address City/[facility]/Zipcode Phone Number [facility] [address] [place] [address] [facility] * Lactic acid, venous, whole blood (06/01/2018 2:55 AM PLASTICS FITTER) Only the most recent of 3 results within the time period is included. Lactate, Venous 1.4 0.5 - 2.2 mmol/L [facility] Specimen Blood Performing Organization Address City/[facility]/Zipcode Phone Number [facility] [address] [place] [address] [facility] * CT chest for pulmonary embolus (06/01/2018 2:09 AM PLASTICS FITTER) Specimen Narrative Performed At FINAL REPORT [facility] EXAMINATION:CHEST CT / PE PROTOCOL CLINICAL HISTORY: [...] is less likely. Follow up with a hospital cleaner recommended. Consider imaging surveillance after appropriate medical [...] Results discussed with Dr. Hernandez 0240 hours. photo lab specialist infection control nurse (Leyla) also notified at 0300 hours. Signed: Leyla Crocker MD Report Verified Date/Time:06/01/2018 03:03:58 Reading Location: [address] Reading Room Procedure Note Interface, External Ris In - 06/01/2018 3:06 AM PLASTICS FITTER FINAL REPORT EXAMINATION: CHEST CT / PE [...] is less likely. Follow up with a hospital cleaner recommended. Consider imaging surveillance after appropriate medical [...] Results discussed with Dr. Hernandez 0240 hours. photo lab specialist infection control nurse (Leyla) also notified at 0300 hours. Signed: Leyla Crocker MD Report Verified Date/Time: 06/01/2018 03:03:58 Reading Location: [address] Reading Room Performing Organization Address City/State/Zipcode Phone Number [facility] * Urinalysis w/Microscopic (06/01/2018 1:33 AM PLASTICS FITTER) Color, UA Yellow [facility] Clarity, UA Clear [facility] Specific [place], UA 1.015 1.001 - 1.035 [facility] pH, UA 6.5 5.0 - 8.0 [facility] Protein, UA 100 mg/dL (A) Negative [facility] Glucose, UA 500 mg/dL (A) Negative [facility] Ketones, UA Negative Negative [facility] Bilirubin, UA Positive (A) Negative [facility] Blood, UA Negative Negative [facility] Nitrite, UA Negative Negative [facility] Leukocytes, UA Negative Negative [facility] Urobilinogen, UA 0.2 0.2 - 1.0 mg/dL [facility] Bacteria, UA Few [facility] RBC, UA <5 /HPF [facility] WBC, UA <5 /HPF [facility] SQUAMOUS EPITHELIAL <5 /HPF [facility] Specimen Source [facility] Specimen Urine Performing Organization Address City/[facility] Phone Number [address] [address] [facility] * Blood culture (06/01/2018 1:11 AM PLASTICS FITTER) Only the most recent of 4 results within the time period is included. Result No growth in 5 days [facility] Specimen Blood Performing Organization Address City/[facility]/Zipcode Phone Number [address] [address] MEDICAL CENTER * Rapid Troponin I (06/01/2018 12:50 AM PLASTICS FITTER) Rapid Troponin I <0.05 <0.05 ng/mL [facility], [facility], [facility] Specimen Blood Performing Organization Address City/[facility]/Zipcode Phone Number [address] [phone] [facility], [facility], [facility] * ECG/EKG Interpretation (06/01/2018 12:41 AM PLASTICS FITTER) Narrative Performed At Luis Miguel Hernandez MD [...] normal. ST segments normal. T waves normal. [place] is normal. Other findings: no other findings. Clinical Impression: normal ECGECG reviewed and does not meet STEMI criteria. * ECG 12 lead (06/01/2018 12:37 AM PLASTICS FITTER) Specimen Narrative Performed At Ventricular Rate 100 BPM GE MUSE Atrial Rate 100 BPM P-R Interval 150 ms QRS Duration 84 ms Q-T Interval 338 ms QTC Calculation(Bazett) 436 ms P [place] 68 degrees R [place] 35 degrees T [place] 73 degrees Normal sinus rhythm Nonspecific T wave abnormalitylateral leads Abnormal ECG When compared with ECG of 27-JUL-2016 15:14, Nonspecific T wave abnormality no longer evident in Inferior leads Nonspecific T wave abnormality now evident in Lateral leads QT has shortened Confirmed by MD PALACIOS YOCHAI ([id number]) on 06/01/2018 6:46:54 AM Procedure Note Interface, External Ris In - 06/01/2018 6:47 AM PLASTICS FITTER Ventricular Rate 100 BPM Atrial Rate 100 BPM P-R Interval 150 ms QRS Duration 84 ms Q-T Interval 338 ms QTC Calculation(Bazett) 436 ms P [place] 68 degrees R [place] 35 degrees T [place] 73 degrees Normal sinus rhythm Nonspecific T wave abnormality lateral leads Abnormal ECG When compared with ECG of 27-JUL-2016 15:14, Nonspecific T wave abnormality no longer evident in Inferior leads Nonspecific T wave abnormality now evident in Lateral leads QT has shortened Confirmed by MD PALACIOS YOCHAI ([id number]) on 06/01/2018 6:46:54 AM Performing Organization Address City/State/Zipcode Phone Number DocSend MUSE * Rapid Strep A screen (06/01/2018 12:34 AM PLASTICS FITTER) Strep A Ag Negative Negative [facility] Specimen Throat Performing Organization Address City/State/Zipcode Phone Number [facility] [address] [place] [address] [facility], [facility] * Rapid Influenza A&B Screen (06/01/2018 12:34 AM PLASTICS FITTER) Rapid Influenza A Antigen Negative Negative, Inconclusive [facility] Rapid influenza B Antigen Negative Negative, Inconclusive [facility], [facility], [facility] Specimen Nasal Performing Organization Address City/[facility] Phone Number [facility] [address] [place] [address] [facility], [facility], [facility] * XR chest 2 views (06/01/2018 12:33 AM PLASTICS FITTER) Specimen Narrative Performed At FINAL REPORT [facility] INDICATION: COUGH GENERALIZED BODY ACHES FEVER COMPARISON: None TECHNIQUE: Frontal and lateral views of the chest. FINDINGS: Lungs and pleura: Clear lungs. No effusion. Heart and mediastinum: Normal heart size. Unremarkable mediastinal contours. Osseous structures: No acute abnormality. Additional findings: None. IMPRESSION: No acute intrathoracic abnormality. Signed: Luisana Orosco MD Report Verified Date/Time:06/01/2018 00:53:22 Reading Location: [address] Neuro Reading Room Procedure Note Interface, External Ris In - 06/01/2018 12:55 AM PLASTICS FITTER FINAL REPORT INDICATION: COUGH GENERALIZED BODY ACHES FEVER COMPARISON: None TECHNIQUE: Frontal and lateral views of the chest. FINDINGS: Lungs and pleura: Clear lungs. No effusion. Heart and mediastinum: Normal heart size. Unremarkable mediastinal contours. Osseous structures: No acute abnormality. Additional findings: None. IMPRESSION: No acute intrathoracic abnormality. Signed: Luisana Orosco MD Report Verified Date/Time: 06/01/2018 00:53:22 Reading Location: [facility] C013 Neuro Reading Room Performing Organization Address City/[facility]ode Phone Number [facility] * LACERATION REPAIR (02/17/2018 9:19 PM CDT) [...] 3 views right (02/04/2018 12:35 PM CDT) Specimen Narrative Performed At FINAL REPORT [facility] Three views right foot Discussion: There is what is presumably a traumatic probably subacute fracture involving the proximal metaphysis of the third toe proximal phalanx. No significant angulation or displacement. Remaining bones and soft tissues are unremarkable. Signed: Preston Galicia MD Report Verified Date/Time:02/04/2018 13:00:28 Reading Location: [facility] Radiology Reading Room Procedure Note Interface, [...] Report Verified Date/Time: 02/04/2018 13:00:28 Reading Location: [facility] Radiology Reading Room Performing Organization Address City/State/Zipcode Phone Number GE Clean TeQ * VASCULAR DIAGRAM -SCAN (01/15/2018 3:03 PM CDT) Narrative Performed At * Vancomycin level, trough (12/11/2017 7:39 PM CDT) Vancomycin Tr 22.0 (H) 10.0 - 20.0 ug/mL [facility] Specimen Blood Performing Organization Address City/State/Zipcode Phone Number [facility] [address] [place] [address] [facility] * XR foot 2 views left (12/11/2017 9:48 AM CDT) Specimen Narrative Performed At FINAL REPORT GE Clean TeQ TECHNIQUE: Frontal, lateral, and oblique radiographs of [...] MD Report Verified Date/Time:12/11/2017 11:01:46 Reading Location: [facility] Radiology Reading Room Procedure Note [...] Report Verified Date/Time: 12/11/2017 11:01:46 Reading Location: [facility] Radiology Reading Room Performing Organization Address City/[facility]/Zipcode Phone Number GE RIS * PT/aPTT (12/11/2017 6:33 AM CDT) Protime 14.6 11.7 - 14.7 seconds [facility] INR 1.1 <=5.9 [facility] PTT 32.4 22.5 - 36.0 seconds [facility] Specimen Blood Narrative Performed At RECOMMENDED COUMADIN/WARFARIN INR THERAPY RANGES [facility] STANDARD DOSE: 2.0 - 3.0 Includes: PROPHYLAXIS for venous thrombosis, [facility] systemic embolization; TREATMENT for venous thrombosis and/or pulmonary embolus. HIGH RISK: Target INR is 2.5-3.5 for patients with mechanical heart valves. Performing Organization Address [facility]/Zipcode Phone Number [place] [phone] [place] [address] MEDICAL CENTER * Lipid panel (12/11/2017 6:33 AM CDT) Triglycerides 368 mg/dL [facility] Cholesterol 151 mg/dL [facility] HDL 30 mg/dL [facility] LDL Calculated 47 mg/dL [facility] Specimen Blood Narrative Performed At Triglyceride Reference Range: [facility] Low Risk <150 [facility] [id number] High Risk 200-499 Very High Risk>=500 Cholesterol Reference Range: Low Risk <200 [id number] High Risk>240 HDL Cholesterol Reference Range: Low Risk >=60 High Risk <40 LDL Cholesterol Reference Range: Optimal<100 Near Fdhhupj450-130 Wpikkeojcq406-719 Upgr103-163 Very High >=190 Specimen slightly lipemic Performing Organization Address City/State/Zipcode Phone Number [facility] [address] [place], [place] [phone] MEDICAL CENTER after 11/30/2017 Insurance Payer Benefit Subscriber ID Type Phone Address Plan / Group [employer] TEX[employer] xxxxxxxxx Maps O ALL Contracted Advance Directives For more information, please contact: [facility] [address] [place], [place] [phone] Date Inactivated Comments Code Status Date Activated [...]
[2018-12-01] MEDS ORDERED: IBUPROFEN 200 MG TAB PO ONE (19:11)
[2018-12-01] MEDS ORDERED: ONDANSETRON HCL 4 MG ORAL DISINTEGRATING TAB PO ONE (19:15)
[2018-12-01] MEDS ORDERED: HYDROCODONE/APAP 5MG-325MG TAB PO ONE (19:15)
[2018-12-01] MEDS ORDERED: ONDANSETRON HCL 4 MG ORAL DISINTEGRATING TAB ONE (19:24)
[2018-12-01] MEDS ORDERED: HYDROCODONE/APAP 5MG-325MG TAB ONE (19:24)
[2018-12-01] MEDS ORDERED: IBUPROFEN 200 MG TAB ONE (19:24)
--- NOTE | 2018-12-01 19:39 | Diagnostic Imaging Report ---
Radiographs of the cervical spine - 3 views HISTORY: Pain COMPARISON: None available. FINDINGS: Bones: No acute displaced fracture. Osseous alignment is within normal limits. Joints: Scattered degenerative change. No osseous erosion Soft tissues: The soft tissues appear unremarkable. IMPRESSION: Scattered degenerative change. No osseous erosion Subtle fracture and soft tissue injury cannot be excluded based on this exam. If indicated MRI may be of benefit. Signed by: Dr. Renny Gilbert M.D. on 12/01/2018 7:36 PM
--- NOTE | 2018-12-01 19:40 | Diagnostic Imaging Report ---
Radiographs of the lumbar spine HISTORY: Pain COMPARISON: None available. FINDINGS: Bones: No acute displaced fracture. Osseous alignment is within normal limits. Joints: Scattered degenerative change. No osseous erosion Soft tissues: The soft tissues appear unremarkable. IMPRESSION: Scattered degenerative change. No osseous erosion Signed by: Dr. Renny Gilbert M.D. on 12/01/2018 7:37 PM
[2018-12-02 03:08] VITALS: BP 149/84
== END 2018-12-01 20:47 | disposition home or self-care (01) ==
LOC: FSED 18:06
DX: M54.2 Cervicalgia (principal); R51 Headache; G89.11 Acute pain due to trauma; V43.53XA Car driver injured in collision with pick-up truck in traffic accident, initial encounter; Y92.410 Unspecified street and highway as the place of occurrence of the external cause; I10 Essential (primary) hypertension; E11.9 Type 2 diabetes mellitus without complications; Z79.02 Long term (current) use of antithrombotics/antiplatelets; Z79.82 Long term (current) use of aspirin; Z79.4 Long term (current) use of insulin
CPT/HCPCS: 72040; 72100; Q0162

== ENCOUNTER 2019-03-24 17:03 | Inpatient (IN) | payer OTHER ==
[~2019-03-24] VITALS: Ht 165.1 cm; Wt 78.0 kg
[2019-03-24 18:25] LABS: BILIRUBIN,URINE NEGATIVE (NEGATIVE); CLARITY,URINE SL CLOUDY (CLEAR); COLOR,URINE YELLOW (YELLOW); KETONES,URINE NEGATIVE (NEGATIVE); LEUKOCYTE ESTERASE ,URINE NEGATIVE (NEGATIVE); NITRITE,URINE NEGATIVE (NEGATIVE); URINE UROBILINOGEN 0.2 mg/dL (0.2 - 1)
[2019-03-24 18:27] LABS: PREGNANCY TEST, URINE NEGATIVE (NEGATIVE)
[2019-03-24 18:29] LABS: STREPTOCOCCUS GRP A ANTIGEN NEGATIVE (NEGATIVE)
[2019-03-24 18:33] LABS: PROTEIN,URINE DIPSTICK 3+ (NEGATIVE)
[2019-03-24 18:38] LABS: INFLUENZAE A&B ANTIGEN (RAPID) NEGATIVE (NEGATIVE)
[2019-03-24 18:42] LABS: BACTERIA,URINE FEW /HPF; EPITHELIAL CELLS,URINE FEW /LPF
[2019-03-24] MEDS ORDERED: SODIUM CHLORIDE 0.9% 1000ML 1,000 ML IV STA (18:53)
[2019-03-24] MEDS ORDERED: ONDANSETRON HCL INJ 2MG/ML 2ML 2 MG/ML VIAL IV NR (19:30)
[2019-03-24 19:57] LABS: BASOPHILS # (AUTO) 0.1 (0.0-0.1); BASOPHILS % 0.3 % (0.0-1.0); EOSINOPHILS # (AUTO) 0.1 (0.0-0.4); EOSINOPHILS % 0.4 % (0.0-6.0); HEMATOCRIT 32.8 % (34.2-44.1); HEMOGLOBIN 10.3 g/dL (12.0-16.0); LYMPHOCYTES # (AUTO) 2.2 (1.0-3.2); LYMPHOCYTES % 10.3 % (18.0-39.1); MEAN CORPUSCULAR HEMOGLOBIN 26.4 pg (28-32); MEAN CORPUSCULAR HGB CONC 31.4 g/dL (31-35); MEAN CORPUSCULAR VOLUME 84.1 fL (81-99); MONOCYTES # (AUTO) 1.8 (0.2-0.8); MONOCYTES % 8.5 % (4.4-11.3); NEUTROPHILS # (AUTO) 17.1 (2.1-6.9); NEUTROPHILS % 79.8 % (38.7-80.0); PLATELET COUNT 379 x10e3/uL (140-360); RED CELL DISTRIBUTION WIDTH 13.3 % (11.7-14.4)
--- NOTE | 2019-03-24 20:08 | Diagnostic Imaging Report ---
CT Abdomen and Pelvis without contrast INDICATION: Abdominal pain, fever, ^PAIN TECHNIQUE: Thin collimation axial images obtained from the diaphragm to the level of the pubic symphysis without nonionic intravenous contrast. Dose reduction techniques used: Automated exposure control, adjustment of the mAs and/or kVp according to patient size, standardized low-dose protocol, and/or iterative reconstruction technique. RADIATION DOSE: Total DLP: 323.31 mGy*cm Estimated effective dose: (DLP x 0.015 x size factor) mSv CTDIvol has been reviewed. It is below the limits set by the Radiation Protocol Committee (RPC). COMPARISON: CT lumbar spine 08/16/2018. ABDOMEN FINDINGS: Lung Bases: Subsegmental atelectasis in the left lower lobe.. The visualized portion of the mediastinum is normal. Liver: Mild steatosis. Calcification or surgical clip in the lateral aspect of the right lobe. No evidence of soft tissue mass. The liver is mildly lobulated in contour. Gallbladder: Absent. No ductal dilatation. Pancreas: Normal attenuation without mass. Spleen: Normal size without mass. Adrenal Glands: No evidence for mass. Kidneys: Right: Punctate intrarenal calculi versus vascular calcifications. No cortical mass or hydronephrosis Left: Multiple intrarenal vascular calcifications. No evidence of calculus. High attenuating lesion in the lower pole measures 1.6 x 1.5 cm and 60 Hounsfield units suggestive of hemorrhage/protein. This is grossly stable. Anterior to this is a low attenuating lesion measuring 10 mm suggestive of a simple cyst. Lymph Nodes: No lymphadenopathy. Aorta: The aorta is normal in diameter with scattered calcifications. There are scattered calcifications in the splenic artery. PELVIS FINDINGS: Bowel: Stomach: Normal in caliber with normal wall thickness. Small Bowel: Postoperative changes of the small bowel. No dilatation or mesenteric inflammation. Large Bowel: Normal in caliber with normal wall thickness. Appendix: Normal. Bladder: Normal. Ureters: No ureteral dilatation or calculus. The uterus is absent. No adnexal mass. Bones: No focal osseous lesions. Soft tissues: Focal subcutaneous inflammation on either side of the abdominal wall the level the umbilicus may be the result of injections. IMPRESSION: 1. No evidence of bowel obstruction or inflammation. Normal appendix. Postoperative changes of the small bowel. 2. No evidence of obstructive uropathy. High attenuating lesion in the left kidney may represent a proteinaceous/hemorrhagic cyst. This can be confirmed with renal ultrasound on an outpatient basis. 3. Mild steatosis. Lobulated hepatic contours are suggestive of macronodular cirrhosis. Signed by: Dr. eJffrey Gordon MD on 03/24/2019 8:04 PM
[2019-03-24 20:18] LABS: ALBUMIN 3.3 g/dL (3.5-5.0); ALBUMIN/GLOBULIN RATIO 0.6 (0.8-2.0); ANION GAP 16.2 mmol/L (8-16); CREATININE, SERUM 1.54 mg/dL (0.57-1.11); POTASSIUM 4.2 mmol/L (3.5-5.1)
[2019-03-24 21:07] LABS: HYPOCHROMASIA SLIGHT; LYMPHOCYTES % (MANUAL) 8 % (19-48); MONOCYTES % (MANUAL) 9 % (3.4-9.0); NEUTROPHILS % (MANUAL) 83 % (40-74); PLATELET ESTIMATE ADEQUATE; PLATELET MORPHOLOGY COMMENT NORMAL; RBC MORPHOLOGY COMMENT NORMAL
[2019-03-24] MEDS ORDERED: ONDANSETRON HCL INJ 2MG/ML 2ML 2 MG/ML VIAL IV PRN (21:30)
[2019-03-24] MEDS ORDERED: LEVOFLOXACIN 500MG/D5W 100ML IV SCH (21:30)
[2019-03-24] MEDS ORDERED: CARVEDILOL25 MG PO (21:44)
[2019-03-24] MEDS ORDERED: TORSEMIDE20 MG PO (21:44)
[2019-03-24] MEDS ORDERED: ATORVASTATIN CA40 MG PO (21:44)
[2019-03-24] MEDS ORDERED: OMEPRAZOLE20 MG PO (21:44)
[2019-03-24] MEDS ORDERED: TYLENOL # 31 EA PO (21:44)
[2019-03-24] MEDS ORDERED: NOVOLOG100 UNITS1 (21:44)
[2019-03-24] MEDS ORDERED: TRAZODONE HCL150 MG PO (21:44)
[2019-03-24] MEDS ORDERED: DEXTROSE 50% SYRINGE 50 ML IV PRN (21:45)
[2019-03-24] MEDS: METRONIDAZOLE 500MG/NS 100ML IV SCH ×2 (21:51→23:47)
[2019-03-24] MEDS ORDERED: ACETAMINOPHEN/CODEINE 300MG - 30MG TAB PO PRN (22:30)
[2019-03-24] MEDS ORDERED: SODIUM CHLORIDE 0.9% 250ML 250 ML ONE (22:57)
[2019-03-24] MEDS: PROMETHAZINE 12.5MG/ NACL 0.9% 12.5 MG/50 ML BAG IV PRN (23:20)
[2019-03-24 23:21] VITALS: BP 158/92
[2019-03-24 23:22] VITALS: BP 158/92
--- NOTE | 2019-03-24 23:29 | NUR ---
PATIENT ARRIVED TO FLOOR NAUSEATED AND WAS PROVIDED ZOFRAN FOR NAUSEA BUT STATES THAT NEVER WORKS FOR HER, CALLED DR. ROBBINS FOR ORDERS AND ADMINISTERED ORDERED PHENERGAN. UPON ADMISSION PATIENT IS NOTED TO HAVE TWO SEPERATE FOOT WOUNDS ON THE RIGHT FOOT. ONE WOUND ON THE TIP OF THE LARGE TOE WHERE SHE STATES SHE STUBBED HER TOE IS ALMOST DOWN TO THE BONE AND THE OTHER WOUND ON THE UNDERSIDE OF THE FOOT HAS BLACK ESCHAR COVERING IT WHERE SHE STATES HER SHOE RUBBED IT OFF. BOTH WOUNDS APPEARED TO BE FULL OF DIRT OR OTHER DEBRIS AND WERE CLEANED WITH SALINE, APPLIED XEROFORM TO BOTH AND WRAPPED IN KERLIX AT THIS TIME. PATIENT HAD NO COMPLAINTS OF PAIN OR DISCOMFORT DURING TREATMENT. WILL NOTIFY DR OF WOUND STATUS.
[2019-03-24 23:35] VITALS: BP 158/92
[2019-03-25] VITALS (9 sets, daily range): BP systolic 110–183; BP diastolic 54–81
[2019-03-25] MEDS: METRONIDAZOLE 500MG/NS 100ML IV SCH (05:22)
[2019-03-25 05:43] LABS: BASOPHILS % 0.2 % (0.0-1.0); EOSINOPHILS % 0.1 % (0.0-6.0); HEMATOCRIT 28.6 % (34.2-44.1); HEMOGLOBIN 8.9 g/dL (12.0-16.0); LYMPHOCYTES # (AUTO) 2.8 (1.0-3.2); LYMPHOCYTES % 14.9 % (18.0-39.1); MEAN CORPUSCULAR HEMOGLOBIN 26.5 pg (28-32); MEAN CORPUSCULAR HGB CONC 31.1 g/dL (31-35); MEAN CORPUSCULAR VOLUME 85.1 fL (81-99); MONOCYTES # (AUTO) 2.2 (0.2-0.8); MONOCYTES % 11.5 % (4.4-11.3); NEUTROPHILS # (AUTO) 13.7 (2.1-6.9); NEUTROPHILS % 72.8 % (38.7-80.0); PLATELET COUNT 351 x10e3/uL (140-360); RED BLOOD COUNT 3.36 x10e6/uL (3.6-5.1); RED CELL DISTRIBUTION WIDTH 13.2 % (11.7-14.4)
[2019-03-25 05:59] LABS: ALBUMIN 2.8 g/dL (3.5-5.0); ALBUMIN/GLOBULIN RATIO 0.7 (0.8-2.0); ALKALINE PHOSPHATASE 119 IU/L (40-150); ANION GAP 15.2 mmol/L (8-16); BLOOD UREA NITROGEN 21 mg/dL (7-26); BUN/CREATININE RATIO 14 (6-25); CALCIUM 9.1 mg/dL (8.4-10.2); CARBON DIOXIDE 21 mmol/L (22-29); CHLORIDE 104 mmol/L (98-107); CREATININE, SERUM 1.55 mg/dL (0.57-1.11); EST GLOMERULAR FILTRATION RATE 42 ML/MIN (60-); GLUCOSE 223 mg/dL (74-118); POTASSIUM 4.2 mmol/L (3.5-5.1); SODIUM 136 mmol/L (136-145)
[2019-03-25 06:01] LABS: ALANINE AMINOTRANSFERASE < 6 IU/L (0-55)
[2019-03-25] MEDS ORDERED: INSULIN REGULAR, HUMAN 100 UNIT/1 ML 3ML VIAL SQ SCH (07:30)
[2019-03-25] MEDS: CARVEDILOL 12.5 MG TAB PO SCH ×2 (09:00→17:10)
[2019-03-25] MEDS: MORPHINE SULFATE 2 MG/ML SYR 1ML IV PRN (11:50)
--- NOTE | 2019-03-25 13:05 | NUR ---
WOUND CARE CONSULT 59 YO FEMALE HX DIABETES CHRISTINE 19 ON CONSERVATIVE PUP AND VISCO MATTRESS LABS: WBC- 18.77,HGB-8.9,GLUCOSE-223 SKIN ASSESSMENT COMPLETE PATIENT PRESENTS WITH DIABETIC ULCERS X 2 TO RIGHT FOOT #1 RIGHT GRT TOE 1CMX1.5CMX.2CM #2 RIGHT 5TH MET HEAD 2CMX1.5CMX.2CM GREATER DETAIL ON WOUND ASSESSMENT SHEET RECOMMENDATIONS : NURSING TO CONTINUE TO MONITOR AND ASSIST PATIENT WITH POSITIONING AND SITTING UP PATIENT TEACHING DONE CONCERNING IMPORTANCE OF FOOT CARE AND BLOOD SUGAR STAYING BELOW 150 NURSING TO APPLY DAILY SILVASORB GEL TO RIGHT FOOT GRT TOE WOUND AND RIGHT FOOT 5TH MET HEAD WOUND COVER WITH 4X4S AND WRAP WITH KERLIX SECURE WITH TAPE Addendum: 03/25/19 at 1315 by Irvin Cooper RN Amended: Links added.
--- NOTE | 2019-03-25 14:18 | Diagnostic Imaging Report ---
Right foot, 3 views. History: Pain in right foot and great toe. Findings: Minimal vascular calcifications are present. There is no evidence of a radiopaque foreign body. Bone mineralization is normal. Deformity of the third proximal talus is consistent with old trauma. There is no evidence of acute fracture or dislocation. There are no lytic or sclerotic lesions. Degenerative changes are noted in the toes. IMPRESSION: No acute osseous abnormality or radiopaque foreign body. Signed by: Phill Perez on 03/25/2019 2:15 PM
[2019-03-25] MEDS: CEFAZOLIN SOD 1 GM/NS 50ML 50 ML IV SCH ×2 (14:27→23:49)
[2019-03-25] MEDS: INSULIN LISPRO 100 UNIT/1 ML 3ML VIAL SQ SCH ×2 (17:11→21:00)
[2019-03-25] MEDS: PROMETHAZINE 12.5MG/ NACL 0.9% 12.5 MG/50 ML BAG IV PRN (21:07)
[2019-03-26] VITALS (11 sets, daily range): BP systolic 110–168; BP diastolic 54–69
[2019-03-26 05:19] LABS: BASOPHILS # (AUTO) 0.1 (0.0-0.1); BASOPHILS % 0.3 % (0.0-1.0); EOSINOPHILS # (AUTO) 0.1 (0.0-0.4); EOSINOPHILS % 0.6 % (0.0-6.0); HEMATOCRIT 27.6 % (34.2-44.1); HEMOGLOBIN 8.6 g/dL (12.0-16.0); LYMPHOCYTES # (AUTO) 3.9 (1.0-3.2); LYMPHOCYTES % 22.1 % (18.0-39.1); MEAN CORPUSCULAR HEMOGLOBIN 26.3 pg (28-32); MEAN CORPUSCULAR HGB CONC 31.2 g/dL (31-35); MEAN CORPUSCULAR VOLUME 84.4 fL (81-99); MONOCYTES # (AUTO) 1.5 (0.2-0.8); MONOCYTES % 8.2 % (4.4-11.3); NEUTROPHILS # (AUTO) 12.1 (2.1-6.9); NEUTROPHILS % 68.3 % (38.7-80.0); PLATELET COUNT 365 x10e3/uL (140-360); RED BLOOD COUNT 3.27 x10e6/uL (3.6-5.1); RED CELL DISTRIBUTION WIDTH 13.3 % (11.7-14.4)
[2019-03-26 05:34] LABS: ANION GAP 14.5 mmol/L (8-16); CALCIUM 9.3 mg/dL (8.4-10.2); CREATININE, SERUM 1.82 mg/dL (0.57-1.11); POTASSIUM 4.5 mmol/L (3.5-5.1)
[2019-03-26] MEDS: INSULIN LISPRO 100 UNIT/1 ML 3ML VIAL SQ SCH ×4 (07:30→20:30)
[2019-03-26] MEDS: PROMETHAZINE 12.5MG/ NACL 0.9% 12.5 MG/50 ML BAG IV PRN (09:31)
[2019-03-26] MEDS: SILVER ANTIMICROBIAL WOUND GEL 45ML TP SCH (09:32)
[2019-03-26] MEDS: CARVEDILOL 12.5 MG TAB PO SCH ×2 (09:33→18:17)
[2019-03-26] MEDS: MORPHINE SULFATE 2 MG/ML SYR 1ML IV PRN ×2 (10:48→18:40)
[2019-03-26] MEDS: CEFAZOLIN SOD 1 GM/NS 50ML 50 ML IV SCH (14:10)
[2019-03-26] MEDS: INSULIN GLARGINE 100 UNITS/ML VIAL SQ SCH (15:30)
[2019-03-26] MEDS ORDERED: TRAMADOL HCL 50 MG TAB PO PRN (15:45)
--- NOTE | 2019-03-26 17:07 | Consultation ---
DATE OF CONSULTATION: 03/26/2019 CHIEF COMPLAINT AND HISTORY OF CHIEF COMPLAINT: Mrs. Gordon is a most pleasant 59-year-old female, who has a long history of multiple wounds, bilateral feet. She is diabetic and has been treated by [facility]. She found herself here in the emergency room for admission due to nausea, vomiting, fevers that were unrelenting. Her admission and subsequent cleanup of the foot wounds have her feeling better. She states that she has been on IV antibiotics and is feeling less nausea, vomiting, fevers, as well. REVIEW OF SYSTEMS: Please see the medical history and physical. PHYSICAL EXAMINATION: EXTREMITIES: Physical evaluation of the lower extremity, vascular status; the patient has mildly palpable pedal pulses, dorsalis pedis, nonpalpable posterior tibial bilaterally. NEUROLOGIC: She has a loss of protective sensation as evidenced by Orbisonia-Tavo monofilament testing. DERMATOLOGIC: There are multiple wounds present. 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 Her right foot has two wounds currently. The distal aspect of the right hallux has a wound, which measures approximately 2 cm in circumference, approximately 0.5 cm in depth. It does appear to be full thickness. There is a mild granular base with a surrounding hyperkeratotic ring. The area of sub 5th on the right has a slightly larger wound, slightly greater than 2 cm in circumference. The wound depth appears to be approximately 1 cm. The wound spares the capsule and bone, but does appear to be full thickness through skin and subcutaneous tissue. There is a surrounding hyperkeratotic wound with a dark and black circumferential ring. The central core is a yellowish wound with no purulent exudate. Both areas need debridement. An enzymatic debridement with Santyl wet-to-dry dressings is recommended at the moment. This will be applied once daily while in-house. She may need further local wound care and debridements down the road as well. She is currently on IV antibiotics and improving. RECOMMENDATIONS: I would recommend continuation of local wound care and we will follow on an as-needed basis. Santyl wet-to-dry prescribed today for these grade 2 ulcerations of the right foot. JOSEF Medrano /[id number]
--- NOTE | 2019-03-26 19:10 | NUR ---
Received report from previous nurse. Call light within reach. at bedside. Patient in bed.
[2019-03-27] VITALS (7 sets, daily range): BP systolic 114–170; BP diastolic 56–71
[2019-03-27] MEDS: CEFAZOLIN SOD 1 GM/NS 50ML 50 ML IV SCH (00:31)
--- NOTE | 2019-03-27 04:52 | NUR ---
GATE WATCH took patients vital signs and patient had a temperature of 100.6 oral. I asked the patient how she felt and she said she felt hot so we retook her temperature and it was 100.9. Called and talked to Dr. Mcqueen about the patient's temperature. Dr. Mcqueen order 650 mg Tylenol.
[2019-03-27] MEDS ORDERED: ACETAMINOPHEN 325 MG TAB PO PRN (04:55)
[2019-03-27] MEDS: PROMETHAZINE 12.5MG/ NACL 0.9% 12.5 MG/50 ML BAG IV PRN (05:02)
--- NOTE | 2019-03-27 07:29 | NUR ---
GAVE REPORT TO ONCOMING NURSE. PATIENT IN BED. CALL LIGHT WITHIN REACH. AT BEDSIDE
[2019-03-27 08:21] LABS: BASOPHILS # (AUTO) 0.1 (0.0-0.1); BASOPHILS % 0.3 % (0.0-1.0); EOSINOPHILS # (AUTO) 0.1 (0.0-0.4); EOSINOPHILS % 0.6 % (0.0-6.0); HEMATOCRIT 28.2 % (34.2-44.1); HEMOGLOBIN 8.6 g/dL (12.0-16.0); LYMPHOCYTES # (AUTO) 3.2 (1.0-3.2); LYMPHOCYTES % 20.1 % (18.0-39.1); MEAN CORPUSCULAR HEMOGLOBIN 26.6 pg (28-32); MEAN CORPUSCULAR HGB CONC 30.5 g/dL (31-35); MEAN CORPUSCULAR VOLUME 87.3 fL (81-99); MONOCYTES # (AUTO) 1.5 (0.2-0.8); MONOCYTES % 9.2 % (4.4-11.3); NEUTROPHILS # (AUTO) 10.9 (2.1-6.9); NEUTROPHILS % 69.4 % (38.7-80.0); PLATELET COUNT 326 x10e3/uL (140-360); RED BLOOD COUNT 3.23 x10e6/uL (3.6-5.1); RED CELL DISTRIBUTION WIDTH 13.3 % (11.7-14.4)
[2019-03-27] MEDS: CARVEDILOL 12.5 MG TAB PO SCH ×2 (08:35→16:34)
[2019-03-27 08:36] LABS: ANION GAP 15.5 mmol/L (8-16); CALCIUM 9.3 mg/dL (8.4-10.2); CREATININE, SERUM 1.48 mg/dL (0.57-1.11); POTASSIUM 4.5 mmol/L (3.5-5.1)
[2019-03-27] MEDS: INSULIN GLARGINE 100 UNITS/ML VIAL SQ SCH (08:36)
[2019-03-27] MEDS: INSULIN LISPRO 100 UNIT/1 ML 3ML VIAL SQ SCH ×4 (08:36→20:52)
[2019-03-27] MEDS: COLLAGENASE 5 GM TUBE TOP SCH (09:34)
[2019-03-27] MEDS: SILVER ANTIMICROBIAL WOUND GEL 45ML TP SCH (09:34)
[2019-03-27] MEDS ORDERED: LEVOFLOXACIN 750MG/D5W 150ML 150 ML IV SCH (12:30)
[2019-03-27] MEDS ORDERED: INSULIN GLARGINE 100 UNITS/ML VIAL SQ ONE (12:30)
[2019-03-27] MEDS ORDERED: DIATRIZOATE MEGL/DIATRIZOA SOD 30 ML BTL PO ONE (12:33)
--- NOTE | 2019-03-27 12:48 | NUR ---
alan Avilez office regarding consult. Awaiting call back.
[2019-03-27] MEDS: MORPHINE SULFATE 2 MG/ML SYR 1ML IV PRN ×2 (16:34→21:00)
[2019-03-27] MEDS: METRONIDAZOLE 500MG/NS 100ML 100 ML IV SCH ×2 (18:22→22:20)
--- NOTE | 2019-03-27 18:29 | NUR ---
Pt received at this time form obs at this time. Pt is aox3 and able to verbalize needs. Pt denies any pain at this time. Pt is able to ambulate without assistance. Iv to right EJ and patent.
--- NOTE | 2019-03-27 19:10 | NUR ---
Patient visited in room during nursing rounds. Patient alert and oriented x3. Up with assist prn. Wounds on right large toe and buttom of right foot covered with gauze and kerlix. On scheduled IV antibiotics. Intermittent RLQ abdominal pain. Will monitor closely.
--- NOTE | 2019-03-27 20:25 | NUR ---
Pt visibly upset and wanted her IV (Right EJ 18g) removed. Patient states it's irritating her and very tender. IV was removed by nurse (Fabio). New IV to be inserted.
--- NOTE | 2019-03-27 20:38 | NUR ---
New IV (left forearm 22g) inserted by CAMILO Cadena). Pt to be given pain med per request.
[2019-03-27] MEDS: HEPARIN SOD (PORCINE) 5,000 UNIT/ML VIAL SC SCH (21:00)
[2019-03-27] MEDS ORDERED: SODIUM CHLORIDE 0.9% 250ML 250 ML ONE (22:18)
[2019-03-28] VITALS (7 sets, daily range): BP systolic 122–177; BP diastolic 58–76
[2019-03-28] MEDS: PROMETHAZINE 12.5MG/ NACL 0.9% 12.5 MG/50 ML BAG IV PRN ×2 (03:00→17:43)
[2019-03-28] MEDS: METRONIDAZOLE 500MG/NS 100ML 100 ML IV SCH ×3 (05:59→22:00)
[2019-03-28 06:35] LABS: BASOPHILS % 0.4 % (0.0-1.0); EOSINOPHILS % 0.8 % (0.0-6.0); LYMPHOCYTES % 19.2 % (18.0-39.1); MEAN CORPUSCULAR VOLUME 84.5 fL (81-99); MONOCYTES % 9.4 % (4.4-11.3); NEUTROPHILS % 69.6 % (38.7-80.0); PLATELET COUNT 386 x10e3/uL (140-360); RED BLOOD COUNT 2.96 x10e6/uL (3.6-5.1); RED CELL DISTRIBUTION WIDTH 13.4 % (11.7-14.4)
[2019-03-28 06:36] LABS: BASOPHILS # (AUTO) 0.1 (0.0-0.1); EOSINOPHILS # (AUTO) 0.1 (0.0-0.4); LYMPHOCYTES # (AUTO) 3.2 (1.0-3.2); MONOCYTES # (AUTO) 1.6 (0.2-0.8); NEUTROPHILS # (AUTO) 11.6 (2.1-6.9)
[2019-03-28 06:49] LABS: INR 1.13; PROTHROMBIN TIME 15.1 seconds (11.9-14.5)
[2019-03-28 06:50] LABS: PARTIAL THROMBOPLASTIN TIME 45.4 seconds (23.8-35.5)
[2019-03-28 06:54] LABS: ALBUMIN 2.4 g/dL (3.5-5.0); ANION GAP 11.1 mmol/L (8-16); BILIRUBIN,DIRECT 0.1 mg/dL (0.0-0.5); CALCIUM 9.4 mg/dL (8.4-10.2); CREATININE, SERUM 1.24 mg/dL (0.57-1.11); POTASSIUM 4.1 mmol/L (3.5-5.1)
[2019-03-28 07:37] LABS: FERRITIN 303.13 ng/mL (4.63-204.00)
--- NOTE | 2019-03-28 07:55 | Diagnostic Imaging Report ---
CT Abdomen and Pelvis without contrast INDICATION: Diarrhea, leukocytosis, ^fever/abd pain, please give oral contrast ^[id number] ^[id number] TECHNIQUE: Thin collimation axial images obtained from the diaphragm to the level of the pubic symphysis without nonionic intravenous contrast. Enteric contrast was administered. Dose reduction techniques used: Automated exposure control, adjustment of the mAs and/or kVp according to patient size, standardized low-dose protocol, and/or iterative reconstruction technique. RADIATION DOSE: Total DLP: 364.6 mGy*cm Estimated effective dose: (DLP x 0.015 x size factor) mSv CTDIvol has been reviewed. It is below the limits set by the Radiation Protocol Committee (RPC). COMPARISON: CT abdomen/pelvis 03/24/2019. ABDOMEN FINDINGS: Lung Bases: Increasing left basilar atelectasis. Trace right basilar atelectasis. The visualized portion of the mediastinum is normal. Liver: Mild steatosis. Stable calcification surgical clip in the lateral aspect of the right lobe. Stable lobulated contours. No soft tissue mass. Gallbladder: Absent. No ductal dilatation. Pancreas: Normal attenuation without mass. Spleen: Normal size without mass. Adrenal Glands: No evidence for mass. Kidneys: Right: No hydronephrosis or perinephric inflammation. Punctate renovascular calcifications or collecting system calculi. Left: No hydronephrosis or perinephric inflammation.. High attenuating lesion in the lower pole is stable. Stable renovascular calcifications. Lymph Nodes: No lymphadenopathy. Aorta: Normal in diameter with scattered calcifications PELVIS FINDINGS: Bowel: Stomach: Normal. Small Bowel: Stable postoperative changes of the small bowel. Enteric contrast is present throughout. No mural thickening or mesenteric edema. Large Bowel: Enteric contrast extends to the mid descending colon. Moderate burden of stool in the descending colon with absence of stool in the ascending and transverse colon. No focal mural thickening or pericolonic inflammation. Appendix: Normal. Bladder: Normal. Ureters: No ureteral dilatation. The uterus is absent. No adnexal mass. Peritoneum/retroperitoneum: No free fluid or fluid collection.. Bones: No focal osseous lesions. Soft tissues: Bilateral anterior abdominal wall subcutaneous inflammation is similar. IMPRESSION: 1. Moderate burden of stool in the descending colon. No evidence for bowel obstruction or inflammation. Normal appendix. 2. Increasing bibasilar atelectasis. 3. Other findings as described above are stable. Signed by: Dr. Jeffrey Gordon MD on 03/28/2019 7:52 AM
[2019-03-28] MEDS: INSULIN LISPRO 100 UNIT/1 ML 3ML VIAL SQ SCH ×4 (08:12→20:40)
[2019-03-28] MEDS: CARVEDILOL 12.5 MG TAB PO SCH ×2 (08:12→17:30)
[2019-03-28] MEDS: INSULIN GLARGINE 100 UNITS/ML VIAL SQ SCH (08:12)
[2019-03-28] MEDS: SILVER ANTIMICROBIAL WOUND GEL 45ML TP SCH (08:13)
[2019-03-28] MEDS: COLLAGENASE 5 GM TUBE TOP SCH (08:13)
[2019-03-28] MEDS: HEPARIN SOD (PORCINE) 5,000 UNIT/ML VIAL SC SCH ×2 (08:22→20:15)
[2019-03-28] MEDS: MORPHINE SULFATE 2 MG/ML SYR 1ML IV PRN ×3 (11:35→18:38)
[2019-03-28] MEDS ORDERED: LACTULOSE SYRUP 20 GM/30 ML UDC PO ONE (12:00)
[2019-03-28] MEDS: IRON SUCROSE 100 MG in SODIUM CHLORIDE 0.9% 100 ML 100 ML IV SCH (12:21)
[2019-03-28] MEDS ORDERED: SODIUM CHLORIDE 0.9% 250ML 250 ML ONE (20:30)
[2019-03-28] MEDS: LEVOFLOXACIN 500MG/D5W 100ML 100 ML IV SCH (20:40)
--- NOTE | 2019-03-28 21:08 | NUR ---
Davie Marshall called and informed patient's peripheral IV infiltrated and pt has poor venous access. consented for PICC placement.
--- NOTE | 2019-03-28 21:14 | NUR ---
IV (20g LFA) infiltrated and IV was removed. Site was covered with warm compress. Patient requested to call MD to see if ok to have PICC line. Nurse (Fabio) will call Dr. Mcqueen regarding patient request.
[2019-03-28] MEDS ORDERED: PANTOPRAZOLE 40 MG 10ML VIAL IV STA (22:59)
[2019-03-29] VITALS (8 sets, daily range): BP systolic 126–175; BP diastolic 58–70
--- NOTE | 2019-03-29 01:12 | NUR ---
Called Radiology dept to inquire on ETA for PICC nurse to arrive. electronic technician informed will follow up with PICC team on ETA and if order was received.
--- NOTE | 2019-03-29 03:18 | NUR ---
PICC placement in progress. PICC nurse in room.
--- NOTE | 2019-03-29 03:30 | NUR ---
PICC procedure done. PICC line placed on right upper arm of patient. Awaiting on STAT CXR to confirm placement.
--- NOTE | 2019-03-29 03:35 | NUR ---
CXR in progress to confirm PICC placement.
--- NOTE | 2019-03-29 03:57 | Diagnostic Imaging Report ---
EXAMINATION: CHEST SINGLE (PORTABLE) INDICATION: Check PICC placement. COMPARISON: Chest radiograph 08/30/2017. FINDINGS: TUBES and LINES: Right arm PICC terminates in the lower SVC. LUNGS: Low lung volumes. Central vascular congestion. Mild patchy bibasilar opacities. PLEURA: No pleural effusion or pneumothorax. HEART AND MEDIASTINUM: The cardiomediastinal silhouette is unremarkable. BONES AND SOFT TISSUES: No acute osseous abnormality. UPPER ABDOMEN: No free air under the diaphragm. IMPRESSION: Right arm PICC terminates in the lower SVC. No evidence of pneumothorax. Low lung volumes with central vascular congestion. Patchy bibasilar opacities, likely atelectasis. Signed by: Dr. Jacquelin Felipe MD on 03/29/2019 3:54 AM
[2019-03-29] MEDS ORDERED: PANTOPRAZOLE 40 MG 10ML VIAL IV ONE (04:15)
[2019-03-29] MEDS: MORPHINE SULFATE 2 MG/ML SYR 1ML IV PRN ×5 (04:40→22:47)
[2019-03-29] MEDS: PROMETHAZINE 12.5MG/ NACL 0.9% 12.5 MG/50 ML BAG IV PRN ×3 (04:40→13:45)
[2019-03-29] MEDS: METRONIDAZOLE 500MG/NS 100ML 100 ML IV SCH ×2 (06:10→14:18)
[2019-03-29 06:25] LABS: BASOPHILS # (AUTO) 0.1 (0.0-0.1); BASOPHILS % 0.4 % (0.0-1.0); EOSINOPHILS # (AUTO) 0.1 (0.0-0.4); HEMATOCRIT 23.4 % (34.2-44.1); HEMOGLOBIN 7.4 g/dL (12.0-16.0); LYMPHOCYTES % 22.1 % (18.0-39.1); MEAN CORPUSCULAR HEMOGLOBIN 26.4 pg (28-32); MEAN CORPUSCULAR HGB CONC 31.6 g/dL (31-35); MEAN CORPUSCULAR VOLUME 83.6 fL (81-99); MONOCYTES # (AUTO) 1.4 (0.2-0.8); MONOCYTES % 10.1 % (4.4-11.3); NEUTROPHILS % 65.5 % (38.7-80.0); PLATELET COUNT 378 x10e3/uL (140-360); RED CELL DISTRIBUTION WIDTH 13.6 % (11.7-14.4)
[2019-03-29 06:39] LABS: ANION GAP 12.9 mmol/L (8-16); CREATININE, SERUM 1.17 mg/dL (0.57-1.11); POTASSIUM 3.9 mmol/L (3.5-5.1)
--- NOTE | 2019-03-29 07:04 | NUR ---
BEDSIDE SHIFT REPORT RECEIVED FROM OFF-GOING NURSE. PATIENT IS RESTING IN BED. NO ACUTE DISTRESS NOTED. CALL LIGHT WITHIN REACH. BED IN THE LOWEST POSITION.
[2019-03-29] MEDS: PANTOPRAZOLE 40 MG 10ML VIAL IV SCH ×2 (08:58→21:55)
[2019-03-29] MEDS: CARVEDILOL 12.5 MG TAB PO SCH ×2 (08:58→16:50)
[2019-03-29] MEDS: INSULIN GLARGINE 100 UNITS/ML VIAL SQ SCH (09:00)
[2019-03-29] MEDS: INSULIN LISPRO 100 UNIT/1 ML 3ML VIAL SQ SCH ×4 (09:00→21:55)
[2019-03-29] MEDS: COLLAGENASE 5 GM TUBE TOP SCH (10:00)
[2019-03-29] MEDS: SILVER ANTIMICROBIAL WOUND GEL 45ML TP SCH (10:00)
--- NOTE | 2019-03-29 11:50 | NUR ---
PAGED DR. FARMER TO SEE IF HE IS GOING TO SCHEDULE EGD FOR PATIENT. WAITING COOLING PIPE INSPECTOR BACK.
[2019-03-29] MEDS: IRON SUCROSE 100 MG in SODIUM CHLORIDE 0.9% 100 ML 100 ML IV SCH (12:14)
--- NOTE | 2019-03-29 15:47 | NUR ---
EDUCATED ABOUT IMM, SIGNED, FILED IN CHART, WITH COPY LEFT WITH FAMILY AT BEDSIDE.
[2019-03-29] MEDS: PROMETHAZINE 12.5MG/ NACL 0.9% 50 ML IV PRN ×2 (18:00→22:47)
--- NOTE | 2019-03-29 19:08 | NUR ---
BEDSIDE SHIFT REPORT GIVEN TO ONCOMING NURSE. PATIENT IS RESTING IN BED. NO ACUTE DISTRESS NOTED. FAMILY MEMBER AT BEDSIDE. CALL LIGHT WITHIN REACH. BED IN THE LOWEST POSITION.
--- NOTE | 2019-03-29 19:12 | NUR ---
Received bedside report from day nurse. Patient resting in bed, alert and oriented, no s/s of distress or c/o pain at this time. All safety measures in place. Family at bedside. Will continue to monitor.
[2019-03-29] MEDS: LEVOFLOXACIN 500MG/D5W 100ML 100 ML IV SCH (21:55)
[2019-03-30] VITALS (8 sets, daily range): BP systolic 142–185; BP diastolic 65–78
[2019-03-30] MEDS: METRONIDAZOLE 500MG/NS 100ML 100 ML IV SCH ×4 (00:01→19:35)
[2019-03-30] MEDS: MORPHINE SULFATE 2 MG/ML SYR 1ML IV PRN ×4 (03:27→20:09)
[2019-03-30] MEDS: PROMETHAZINE 12.5MG/ NACL 0.9% 50 ML IV PRN ×4 (03:27→20:09)
[2019-03-30 05:10] LABS: BASOPHILS % 0.3 % (0.0-1.0); EOSINOPHILS # (AUTO) 0.2 (0.0-0.4); EOSINOPHILS % 1.1 % (0.0-6.0); HEMATOCRIT 24.3 % (34.2-44.1); HEMOGLOBIN 7.5 g/dL (12.0-16.0); LYMPHOCYTES # (AUTO) 2.8 (1.0-3.2); LYMPHOCYTES % 20.2 % (18.0-39.1); MEAN CORPUSCULAR HEMOGLOBIN 26.2 pg (28-32); MEAN CORPUSCULAR HGB CONC 30.9 g/dL (31-35); MONOCYTES # (AUTO) 1.2 (0.2-0.8); MONOCYTES % 8.9 % (4.4-11.3); NEUTROPHILS # (AUTO) 9.4 (2.1-6.9); NEUTROPHILS % 68.4 % (38.7-80.0); PLATELET COUNT 395 x10e3/uL (140-360); RED BLOOD COUNT 2.86 x10e6/uL (3.6-5.1); RED CELL DISTRIBUTION WIDTH 13.6 % (11.7-14.4)
[2019-03-30 05:28] LABS: CALCIUM 8.8 mg/dL (8.4-10.2); CREATININE, SERUM 1.22 mg/dL (0.57-1.11)
--- NOTE | 2019-03-30 07:09 | NUR ---
received report from material handler 2nd shift RN; walking rounds completed. pt resting in bed, easily aroused, no signs of distress. will continue to monitor.
--- NOTE | 2019-03-30 07:09 | NUR ---
Gave bedside report to day nurse. Patient resting in bed, no s/s of distress or c/o pain at this time. All safety measures in place. Family at bedside.
[2019-03-30] MEDS: INSULIN LISPRO 100 UNIT/1 ML 3ML VIAL SQ SCH ×4 (07:30→21:29)
--- NOTE | 2019-03-30 07:58 | NUR ---
paged Dr. Walker (on-call for Dr. Fady Avilez) in regards to pt's elevated blood pressure (185/80 taken maually at bedside). pt scheduled for EGD today and has been NPO since midnight. awaiting callback.
[2019-03-30] MEDS: CARVEDILOL 12.5 MG TAB PO SCH ×2 (08:46→16:43)
[2019-03-30] MEDS: PANTOPRAZOLE 40 MG 10ML VIAL IV SCH ×2 (09:04→21:29)
[2019-03-30] MEDS: INSULIN GLARGINE 100 UNITS/ML VIAL SQ SCH (09:05)
[2019-03-30] MEDS ORDERED: FENTANYL CITRATE/PF 100MCG/2 ML INJ ONE (14:32)
[2019-03-30] MEDS ORDERED: MIDAZOLAM HCL 2 MG/2 ML VIAL ONE (14:32)
[2019-03-30] MEDS: SILVER ANTIMICROBIAL WOUND GEL 45ML TP SCH (14:43)
[2019-03-30] MEDS: COLLAGENASE 5 GM TUBE TOP SCH (14:43)
--- NOTE | 2019-03-30 15:43 | NUR ---
pt going for EGD; left in stable condition.
[2019-03-30] MEDS ORDERED: PROPOFOL IV EMULSION 10 MG/ML 20 ML VIAL ONE (16:02)
--- NOTE | 2019-03-30 17:35 | NUR ---
PT RETURNED FROM EGD; AWAKE, ALERT, ORIENTED, NO C/O PAIN. NO S/S DISTRESS.
[2019-03-30] MEDS: IRON SUCROSE 100 MG in SODIUM CHLORIDE 0.9% 100 ML 100 ML IV SCH (17:36)
--- NOTE | 2019-03-30 17:36 | Progress Note ---
DATE: 03/30/2019 CONSULTANTS: 1. Dr. Avilez with GI. 2. Dr. Nunes with Podiatry. CHIEF COMPLAINT: Diarrhea and vomiting with abdominal pain. SUBJECTIVE: She reports abdominal pain improving some, diarrhea improving. She is n.p.o. for EGD later this afternoon. No chest pain. No shortness of breath, fever, or chills. PHYSICAL EXAMINATION: VITAL SIGNS: Temperature 99.4, pulse is 75, respirations 16, blood pressure 166/72, and pulse ox is 98% on room air. GENERAL: No acute distress. HEENT: Normocephalic and atraumatic. NECK: Supple. CARDIOVASCULAR: Regular rate and rhythm. LUNGS: Clear to auscultation. ABDOMEN: Soft and mild tenderness in the left upper quadrant. NEUROLOGIC: Alert, awake, and oriented x3. MUSCULOSKELETAL: Moves all extremities. SKIN: Noted chronic bilateral feet wounds likely due to diabetic ulcers. LABORATORY DATA: WBC 13.65, hemoglobin 7.5, hematocrit 24.3, and platelet is 395. Sodium 138, potassium 4.0, BUN is 15, creatinine is 1.22, estimated GFR is 55, blood sugar 122, and calcium 8.8. Fecal occult blood is positive. Influenza A and B are negative. IMAGING: Noted. IMPRESSION AND PLAN: 1. Abdominal pain with diarrhea and leukocytosis. We will continue on IV Levaquin and Flagyl. Dr. Avilez has been consulted with GI, pending esophagogastroduodenoscopy today. 2. Leukocytosis, improving with IV antibiotics. Blood culture is negative so far. UA, no signs of urinary tract infection. We will continue to trend WBCs on antibiotics. 3. Acute kidney injury, creatinine 1.22. We will continue with IV fluids and monitor trend. 4. Anemia, hemoglobin 7.5. She was given iron supplements. Stool occult was positive. Esophagogastroduodenoscopy today. 5. Hypertension, uncontrolled. We will continue on carvedilol 25 mg b.i.d. 6. Diabetes. Continue Lantus 40 units daily and sliding scale insulin coverage as needed. 7. Bilateral lower extremity diabetic ulcers. Wound care with Santyl daily recommended. 8. Deep vein thrombosis prophylaxis. No anticoagulation due to anemia. Dictated by JUANIS Thakkar Yiching Pradeep Mcqueen MD MY/MODL /[id number] Seen and examined, updated at the bedside. Agree with the findings and plan as documented by JUANIS Jenkins. RAVEND
--- NOTE | 2019-03-30 19:10 | NUR ---
Received bedside report from day nurse. Patient resting in bed, no s/s of distress or c/o pain at this time. All safety measures in place. Will continue to monitor.
[2019-03-30] MEDS: LEVOFLOXACIN 500MG/D5W 100ML 100 ML IV SCH (21:29)
[2019-03-31] VITALS (8 sets, daily range): BP systolic 146–172; BP diastolic 67–74
[2019-03-31] MEDS: PROMETHAZINE 12.5MG/ NACL 0.9% 50 ML IV PRN ×3 (00:17→10:15)
[2019-03-31] MEDS: MORPHINE SULFATE 2 MG/ML SYR 1ML IV PRN ×3 (00:17→10:12)
[2019-03-31 05:55] LABS: BASOPHILS # (AUTO) 0.1 (0.0-0.1); BASOPHILS % 0.5 % (0.0-1.0); EOSINOPHILS # (AUTO) 0.2 (0.0-0.4); EOSINOPHILS % 1.3 % (0.0-6.0); HEMATOCRIT 25.7 % (34.2-44.1); LYMPHOCYTES # (AUTO) 3.2 (1.0-3.2); LYMPHOCYTES % 22.5 % (18.0-39.1); MEAN CORPUSCULAR HEMOGLOBIN 26.1 pg (28-32); MEAN CORPUSCULAR HGB CONC 31.1 g/dL (31-35); MONOCYTES # (AUTO) 1.2 (0.2-0.8); MONOCYTES % 8.1 % (4.4-11.3); NEUTROPHILS # (AUTO) 9.3 (2.1-6.9); PLATELET COUNT 440 x10e3/uL (140-360); RED BLOOD COUNT 3.06 x10e6/uL (3.6-5.1); RED CELL DISTRIBUTION WIDTH 13.8 % (11.7-14.4)
[2019-03-31 06:15] LABS: CREATININE, SERUM 1.23 mg/dL (0.57-1.11)
[2019-03-31] MEDS: METRONIDAZOLE 500MG/NS 100ML 100 ML IV SCH ×3 (06:26→23:06)
--- NOTE | 2019-03-31 07:10 | NUR ---
Gave bedside report to day nurse. Patient sitting up in bed, alert and oriented, no s/s of distress or c/o pain at this time. All safety measures in place.
[2019-03-31] MEDS: CARVEDILOL 12.5 MG TAB PO SCH ×2 (07:57→17:05)
[2019-03-31] MEDS: PANTOPRAZOLE 40 MG 10ML VIAL IV SCH ×2 (07:59→22:04)
[2019-03-31] MEDS: INSULIN LISPRO 100 UNIT/1 ML 3ML VIAL SQ SCH ×4 (08:05→22:04)
[2019-03-31] MEDS: INSULIN GLARGINE 100 UNITS/ML VIAL SQ SCH (08:07)
[2019-03-31] MEDS: COLLAGENASE 5 GM TUBE TOP SCH (12:38)
[2019-03-31] MEDS: SILVER ANTIMICROBIAL WOUND GEL 45ML TP SCH (12:38)
[2019-03-31] MEDS ORDERED: ACETAMINOPHEN/CODEINE 300MG - 30MG TAB PO PRN (16:15)
--- NOTE | 2019-03-31 16:52 | NUR ---
Nutrition Screen Note RD Recommendation for Physician: -Continue diabetic diet Plan of Care: RD following, monitoring for tolerance and adequacy Nutrition reason for involvement: Length of stay Primary Diagnose(s): diarrhea and leukocytosis PMH: multiple wounds to bilateral feet, diabetes Ht: 65 in Wt:172 lb BMI: 28.6 kg/m2 IBW:[address] Assessment: (03/31/19) Chart reviewed. Labs and meds reviewed. Pt is a 59 year old female admitted with diarrhea and leukocytosis. Pt also has diabetic ulcers to right foot. Pt stated she has been eating about 50% of meals. Per documentation, pt has been consuming 25-100% of meals during admission. Prior to admission, pt reported she was eating >50% of meals. Pt also reports some nausea and diarrhea. Pt thinks she may have lost 5-10 lbs in the past month and usually weighs 176 lbs. Pt currently has a wt of 172 lbs in chart. This would be a 2% wt loss in 1 month - nonsignificant wt loss. No chewing/swallowing issues. Will continue to monitor. Current Diet: ADA diet Malnutrition Evaluation (03/31/19) The patient does not meet criteria for a specified degree of malnutrition at this time. Will re-evaluate at follow-up as appropriate. Diet Education Needs Assessment: Pt was not interested in diet education at time of visit. Nutrition Care Level: low Signed: Giovanna Talamantes, RD, LD
[2019-03-31] MEDS: PROMETHAZINE HCL 25 MG TAB PO PRN (17:07)
--- NOTE | 2019-03-31 18:57 | Progress Note ---
DATE: 03/31/2019 CONSULTANTS: 1. Dr. Avilez with GI. 2. Dr. Nunes with Podiatry. CHIEF COMPLAINT: Abdominal pain with nausea and vomiting. SUBJECTIVE: She is status post EGD yesterday, which showed gastritis. She has been continuing to require pain medication every 4 hours and Phenergan for nausea. We will try to monitor her on p.o. pain and nausea medication and see how she tolerates her diet. PHYSICAL EXAMINATION: VITAL SIGNS: Temperature 98.9, pulse is 68, respirations 17, blood pressure 158/72, and pulse ox is 98% on room air. GENERAL: No acute distress. HEENT: Normocephalic and atraumatic. NECK: Supple. CARDIOVASCULAR: Regular rate and rhythm. LUNGS: Clear to auscultation. ABDOMEN: Soft with mild tenderness to palpation. NEUROLOGIC: Alert, awake, and oriented x3. MUSCULOSKELETAL: Moves all extremities. SKIN: Dry with bilateral feet ulcers. LABORATORY DATA: WBC 14.15, hemoglobin is 8.0, hematocrit is 25.7, and platelet is 440. Sodium is 136, potassium is 4, CO2 is 23, creatinine is 1.23, and estimated GFR is 54. IMPRESSION AND PLAN: 1. Abdominal pain with nausea and vomiting. Due to colitis, we will continue with Levaquin and Flagyl. Status post esophagogastroduodenoscopy per GI, which showed gastritis. 2. Leukocytosis. We will continue with IV antibiotics. Blood cultures negative so far. We will continue to trend WBCs. 3. Acute kidney injury. We will continue with IV fluid hydration. Creatinine stable at 1.2. 4. Anemia. Hemoglobin slightly improved to 8. Status post iron supplement. 5. Hypertension. We will continue on carvedilol b.i.d. 6. Diabetes. We will continue on Lantus 40 units daily and sliding scale insulin coverage as needed. 7. Bilateral lower extremity ulcers. Wound care with Santyl daily recommended. 8. Deep vein thrombosis prophylaxis. No chemical anticoagulation due to anemia. Plan is to discharge on p.o. antibiotics likely tomorrow. Dictated by JUANIS Thakkar Davie Mcqueen MD MY/MODL /[id number] Seen and examined. Agree with the findings and plan as documented by JUANIS Jenkins. GREY
--- NOTE | 2019-03-31 19:02 | Progress Note ---
DATE: 03/31/2019 SUBJECTIVE: Ms. Gordon is doing well today. She is awake, alert, oriented, very minimal GI complaint, tolerating her diet well. She has not had a bowel movement today. OBJECTIVE: ABDOMEN: Soft and nontender. VITAL SIGNS: Her temperature 98, pulse 68, and blood pressure 158/72. LAB TESTS: Hemoglobin 8 and hematocrit 26. BUN normal and creatinine normal. Sodium and potassium normal. Nothing to add from GI standpoint. If she gets discharged, she can follow with Dr. Enzo Avilez as an outpatient. Chris Walker MD RD/MODL /[id number]
--- NOTE | 2019-03-31 19:25 | NUR ---
Received bedside report from day nurse. Patient sitting up in bed, alert and oriented. All safety measures in place. Will continue to monitor.
[2019-03-31] MEDS: LEVOFLOXACIN 500MG/D5W 100ML 100 ML IV SCH (22:04)
[2019-04-01] VITALS: BP 152/67
[2019-04-01 04:00] VITALS: BP 146/69
[2019-04-01] MEDS: METRONIDAZOLE 500MG/NS 100ML 100 ML IV SCH (05:16)
[2019-04-01] MEDS: PROMETHAZINE HCL 25 MG TAB PO PRN (05:16)
[2019-04-01 05:40] LABS: BASOPHILS # (AUTO) 0.1 (0.0-0.1); BASOPHILS % 0.6 % (0.0-1.0); EOSINOPHILS # (AUTO) 0.2 (0.0-0.4); EOSINOPHILS % 1.7 % (0.0-6.0); HEMATOCRIT 24.7 % (34.2-44.1); HEMOGLOBIN 7.8 g/dL (12.0-16.0); LYMPHOCYTES # (AUTO) 3.7 (1.0-3.2); LYMPHOCYTES % 27.6 % (18.0-39.1); MEAN CORPUSCULAR HEMOGLOBIN 26.6 pg (28-32); MEAN CORPUSCULAR HGB CONC 31.6 g/dL (31-35); MEAN CORPUSCULAR VOLUME 84.3 fL (81-99); MONOCYTES # (AUTO) 1.1 (0.2-0.8); MONOCYTES % 8.6 % (4.4-11.3); NEUTROPHILS % 59.9 % (38.7-80.0); PLATELET COUNT 460 x10e3/uL (140-360); RED BLOOD COUNT 2.93 x10e6/uL (3.6-5.1); RED CELL DISTRIBUTION WIDTH 13.8 % (11.7-14.4)
[2019-04-01 05:58] LABS: ANION GAP 10.9 mmol/L (8-16); BLOOD UREA NITROGEN 13 mg/dL (7-26); BUN/CREATININE RATIO 12 (6-25); CARBON DIOXIDE 25 mmol/L (22-29); CHLORIDE 107 mmol/L (98-107); CREATININE, SERUM 1.06 mg/dL (0.57-1.11); EST GLOMERULAR FILTRATION RATE > 60 ML/MIN (60-); GLUCOSE 114 mg/dL (74-118); POTASSIUM 3.9 mmol/L (3.5-5.1); SODIUM 139 mmol/L (136-145)
--- NOTE | 2019-04-01 07:00 | NUR ---
BEDSIDE SHIFT REPORT RECEIVED FROM THE DIRECTOR OF GUIDANCE IN [employer] RN. EDUCATED PT ABOUT FALL PRECAUTIONS. PT VERBALIZED UNDERSTANDING. BED IS LOW AND LOCKED. SIDE RAILS X2. PT DENIES NEEDS AT THIS TIME.
--- NOTE | 2019-04-01 07:15 | NUR ---
Bedside report given to day nurse. Patient resting in bed, alert and oriented, no s/s of distress or c/o pain at this time. All safety measures in place.
[2019-04-01] MEDS: INSULIN LISPRO 100 UNIT/1 ML 3ML VIAL SQ SCH ×2 (07:30→11:30)
[2019-04-01 08:00] VITALS: BP 162/72
[2019-04-01 08:08] VITALS: BP 162/72
[2019-04-01] MEDS: PANTOPRAZOLE 40 MG 10ML VIAL IV SCH (08:34)
[2019-04-01] MEDS: CARVEDILOL 12.5 MG TAB PO SCH (08:35)
[2019-04-01] MEDS: COLLAGENASE 5 GM TUBE TOP SCH (09:00)
[2019-04-01] MEDS: INSULIN GLARGINE 100 UNITS/ML VIAL SQ SCH (09:00)
[2019-04-01] MEDS: SILVER ANTIMICROBIAL WOUND GEL 45ML TP SCH (09:00)
--- NOTE | 2019-04-01 10:00 | NUR ---
JOSE CORONADO STORYBOARD ARTIST AND REPORTED THE PT HGB LEVEL.
[2019-04-01] MEDS ORDERED: LEVAQUIN500 MG PO (11:14)
[2019-04-01] MEDS ORDERED: FLAGYL500 MG PO (11:14)
[2019-04-01] MEDS ORDERED: PROTONIX40 MG PO (11:25)
--- NOTE | 2019-04-01 11:45 | NUR ---
D/C PT AND REMOVE PICC LINE PER CLIFF [employer]
--- NOTE | 2019-04-01 11:45 | NUR ---
PT REFUSED BLOOD SUGAR CHECK AND INSULIN
[2019-04-01 11:55] VITALS: BP 161/67
--- NOTE | 2019-04-01 12:30 | NUR ---
PT DISCHARGED HOME SAFELY WITH . PICC LINE REMOVED PER THE ORDER AND DRESSING APPLIED. PT ESCORTED VIA WHEEL CHAIR TO THE PRIVATE AUTO TO THE FRONT ENTRANCE. PT DENIED FURTHER NEEDS.
--- NOTE | 2019-04-02 00:44 | Discharge Summary ---
PCP: Dr. Viraj Lomeli at [facility]. FINAL DIAGNOSES: 1. Nausea and vomiting with diarrhea, likely due to enteritis. 2. Leukocytosis. 3. Acute kidney injury. 4. Anemia. 5. Hypertension. 6. Diabetes, uncontrolled. 7. Bilateral lower extremity ulcers due to peripheral vascular disease. CONSULTANTS: Dr. Avilez with GI and Dr. Nunes with Podiatry, Wound Care. PROCEDURES: EGD, which showed gastritis. HISTORY: Per HPI. HOSPITAL COURSE: This is a 59-year-old female with past medical history of hypertension, diabetes, and PVD, presented with complaints of nausea, vomiting, and diarrhea associated with severe abdominal pain. CAT scan of the abdomen and pelvis showed no acute process. GI was consulted and she underwent EGD, which showed gastritis. She was started on IV fluids to correct her MEGHANN and started on Levaquin and Flagyl for possible colitis. She continued to improve post EGD. She was started on PPI 40 mg IV b.i.d. Her diet was advanced as tolerated. Today, she is tolerating her diet and pain is much improved. We will discharge home to follow up with PCP and GI in 1 to 2 weeks. PHYSICAL EXAMINATION: VITAL SIGNS: Temperature 98.2, pulse is 75, respirations 12, blood pressure 162/72, pulse ox is 99% on room air. GENERAL: No acute distress. NECK: Supple. CARDIOVASCULAR: Regular rate and rhythm. LUNGS: Clear to auscultation. ABDOMEN: Soft and very mild tenderness. NEUROLOGIC: Alert, awake, and oriented x3. MUSCULOSKELETAL: Moves all extremities. CONDITION AT DISCHARGE: Stable and much improved. DISCHARGE MEDICATIONS: See medication reconciliation list. FOLLOWUP: Follow up with PCP and GI in 1 to 2 weeks. TIME SPENT: Total time of discharge is 35 minutes. Dictated by JUANIS Thakkar Davie Mcqueen MD MY/MODL /[id number] cc: Viraj Lomeli MD [facility]
== END 2019-04-01 12:32 | disposition home or self-care (01) | DRG 392 ==
LOC: ER 17:03 → ERHOLD 21:30 → IMCU 22:32 → OBSVTOIN 03-25 13:10 → MED/SURG3 03-27 18:30
PROVIDERS: ADMIT Internal Medicine; ATTEND Internal Medicine
PROC: 02HV33Z Insertion of Infusion Device into Superior Vena Cava, Percutaneous Approach (ICD-10-PCS; 2019-03-29)
PROC: B548ZZA Ultrasonography of Superior Vena Cava, Guidance (ICD-10-PCS; 2019-03-29)
PROC: 0DB68ZX Excision of Stomach, Via Natural or Artificial Opening Endoscopic, Diagnostic (ICD-10-PCS; 2019-03-30)
PROC: 0DB98ZX Excision of Duodenum, Via Natural or Artificial Opening Endoscopic, Diagnostic (ICD-10-PCS; principal; 2019-03-30 16:30)
DX: A08.39 Other viral enteritis (principal); N17.9 Acute kidney failure, unspecified; K92.1 Melena; N18.3 Chronic kidney disease, stage 3 (moderate); E11.51 Type 2 diabetes mellitus with diabetic peripheral angiopathy without gangrene; Z83.3 Family history of diabetes mellitus; E11.22 Type 2 diabetes mellitus with diabetic chronic kidney disease; I12.9 Hypertensive chronic kidney disease with stage 1 through stage 4 chronic kidney disease, or unspecified chronic kidney disease; Z90.81 Acquired absence of spleen; Z79.899 Other long term (current) drug therapy; S90.811A Abrasion, right foot, initial encounter; Z89.422 Acquired absence of other left toe(s); L97.521 Non-pressure chronic ulcer of other part of left foot limited to breakdown of skin; L97.511 Non-pressure chronic ulcer of other part of right foot limited to breakdown of skin; D72.829 Elevated white blood cell count, unspecified; D64.9 Anemia, unspecified; E11.621 Type 2 diabetes mellitus with foot ulcer; K29.70 Gastritis, unspecified, without bleeding; K44.9 Diaphragmatic hernia without obstruction or gangrene; D50.9 Iron deficiency anemia, unspecified; Z88.1 Allergy status to other antibiotic agents; Z88.8 Allergy status to other drugs, medicaments and biological substances; E11.65 Type 2 diabetes mellitus with hyperglycemia; Z79.4 Long term (current) use of insulin
CPT/HCPCS: 36415; 36569; 43239; 71045; 74176; 80048; 80053; 80076; 81001; 81025; 82270; 82607; 82728; 82948; 83518; 83540; 83690; 84466; 85025; 85045; 85610; 85730; 87070; 87400; 88305; 88312; 88342; 93925; 96372; 97602; 99284; G0378; J0690; J1644; J1756; J1815; J1817; J1956; J2250; J2270; J2405; J2550; J3010; J7030; J7050

== ENCOUNTER 2019-06-08 14:55 | Inpatient (IN) | payer OTHER ==
[~2019-06-08] VITALS: Ht 165.1 cm; Wt 81.7 kg
[~2019-06-08 14:55] MED LIST changes: +ATORVASTATIN CA40 MG PO; +CARVEDILOL25 MG PO; +FLAGYL500 MG PO; +LEVAQUIN500 MG PO; +NOVOLOG100 UNITS1; +OMEPRAZOLE20 MG PO; +PROTONIX40 MG PO; +TORSEMIDE20 MG PO; +TRAZODONE HCL150 MG PO; +TYLENOL # 31 EA PO
[2019-06-08] MEDS ORDERED: SODIUM CHLORIDE 0.9% 1000ML 1,000 ML IV STA ×3 (15:29→16:43)
[2019-06-08] MEDS ORDERED: IBUPROFEN 600 MG TAB PO NR ×2 (15:30)
[2019-06-08] MEDS ORDERED: ACETAMINOPHEN 325 MG TAB PO NR ×2 (15:30)
[2019-06-08] MEDS ORDERED: ONDANSETRON HCL INJ 2MG/ML 2ML 2 MG/ML VIAL ONE (15:35)
[2019-06-08] MEDS ORDERED: SODIUM CHLORIDE 0.9% 1000ML 1,000 ML ONE (15:35)
[2019-06-08 16:24] LABS: BASOPHILS # (AUTO) 0.1 (0.0-0.1); BASOPHILS % 0.2 % (0.0-1.0); EOSINOPHILS % 0.1 % (0.0-6.0); HEMATOCRIT 31.3 % (34.2-44.1); HEMOGLOBIN 9.9 g/dL (12.0-16.0); LYMPHOCYTES # (AUTO) 2.3 (1.0-3.2); LYMPHOCYTES % 8.5 % (18.0-39.1); MEAN CORPUSCULAR HEMOGLOBIN 26.4 pg (28-32); MEAN CORPUSCULAR HGB CONC 31.6 g/dL (31-35); MEAN CORPUSCULAR VOLUME 83.5 fL (81-99); MONOCYTES # (AUTO) 1.6 (0.2-0.8); MONOCYTES % 5.6 % (4.4-11.3); NEUTROPHILS # (AUTO) 23.3 (2.1-6.9); NEUTROPHILS % 84.5 % (38.7-80.0); PLATELET COUNT 426 x10e3/uL (140-360); RED BLOOD COUNT 3.75 x10e6/uL (3.6-5.1); RED CELL DISTRIBUTION WIDTH 14.2 % (11.7-14.4)
[2019-06-08 16:34] LABS: INR 1.05; PROTHROMBIN TIME 14.2 seconds (11.9-14.5)
[2019-06-08 16:35] LABS: PARTIAL THROMBOPLASTIN TIME 28.9 seconds (23.8-35.5)
--- NOTE | 2019-06-08 16:35 | Diagnostic Imaging Report ---
EXAMINATION: CHEST SINGLE (NOT PORTABLE) INDICATION: Fever COMPARISON: None FINDINGS: LINES/TUBES:None LUNGS:The lungs are well-inflated. No focal consolidation or pulmonary edema. PLEURA:No pleural effusion or pneumothorax. MEDIASTINUM:The cardiomediastinal silhouette appears normal in size and shape. BONES/SOFT TISSUES:No acute osseous injury. ABDOMEN:No free air under the diaphragm. IMPRESSION: No focal pneumonia or pulmonary edema. Signed by: Demond Almaguer MD on 06/08/2019 4:33 PM
[2019-06-08 16:46] LABS: ALBUMIN 3.1 g/dL (3.5-5.0); ALBUMIN/GLOBULIN RATIO 0.6 (0.8-2.0); CALCIUM 9.9 mg/dL (8.4-10.2); CREATININE, SERUM 1.63 mg/dL (0.57-1.11); MAGNESIUM 1.6 MG/DL (1.3-2.1)
[2019-06-08 16:53] LABS: CREATINE KINASE MB 1.9 ng/mL (0-5.0)
[2019-06-08 18:18] LABS: BILIRUBIN,URINE NEGATIVE (NEGATIVE); CLARITY,URINE SL CLOUDY (CLEAR); COLOR,URINE YELLOW (YELLOW); KETONES,URINE NEGATIVE (NEGATIVE); LEUKOCYTE ESTERASE ,URINE NEGATIVE (NEGATIVE); NITRITE,URINE NEGATIVE (NEGATIVE); PROTEIN,URINE DIPSTICK 2+ (NEGATIVE); URINE UROBILINOGEN 0.2 mg/dL (0.2 - 1)
[2019-06-08 18:24] LABS: BACTERIA,URINE MANY /HPF; EPITHELIAL CELLS,URINE MODERATE /LPF
[2019-06-08 18:25] LABS: AMORPHOUS SEDIMENT,URINE MODERATE (FEW)
[2019-06-08] MEDS: CEFTRIAXONE SOD 1 GM/NS 50 ML 50 ML IV SCH (19:00)
[2019-06-08] MEDS: AZITHROMYCIN 500MG/NS 250 ML 250 ML IV SCH (19:41)
[2019-06-08] MEDS: SODIUM CHLORIDE 0.9% 1000ML 1,000 ML IV SCH (20:23)
[2019-06-08] MEDS ORDERED: ALBUTEROL SULF 0.083% NEB SOLN 3 ML NEB NEB SCH (20:30)
[2019-06-08] MEDS ORDERED: IPRATROPIUM BROMIDE 0.02% 2.5 ML NEB NEB SCH (20:30)
[2019-06-08] MEDS ORDERED: DEXTROSE 50% SYRINGE 50 ML IV PRN (23:30)
[2019-06-09] VITALS (10 sets, daily range): BP systolic 120–163; BP diastolic 58–90
--- NOTE | 2019-06-09 02:25 | NUR ---
PT IS TRANSFERRED FROM ER .PT IS AOX3 .RESPIRATIONS ARE EVEN AND UNLABORED .PT C/O BODY PAIN .SKIN WARM AND DRY TO TOUCH PT HAS WOUND AT RT FOOT TELE 15 SHOWS SR ASSESSMENT DONE .INSTRUCTED THE PT TO CALL FOR HELP FAMILY AT THE BEDSIDE CALL LIGHT WITH IN REACH .BED LOWEST POSITION .CONTINUE TO MONITOR
[2019-06-09] MEDS: ACETAMINOPHEN/CODEINE 300MG - 30MG TAB PO PRN ×3 (02:40→17:43)
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
[2019-06-09] MEDS: SODIUM CHLORIDE 0.9% 1000ML 1,000 ML IV SCH (04:23)
--- NOTE | 2019-06-09 05:46 | NUR ---
PT C/O PAIN AND GIVEN ORDERED PAIN MEDICATION.PT RESTING .CALL LIGHT WITH IN REACH .CONTINUE TO MONITOR
[2019-06-09 06:29] LABS: BASOPHILS # (AUTO) 0.1 (0.0-0.1); BASOPHILS % 0.2 % (0.0-1.0); EOSINOPHILS # (AUTO) 0.2 (0.0-0.4); HEMATOCRIT 25.5 % (34.2-44.1); HEMOGLOBIN 7.9 g/dL (12.0-16.0); LYMPHOCYTES # (AUTO) 3.5 (1.0-3.2); LYMPHOCYTES % 17.5 % (18.0-39.1); MEAN CORPUSCULAR HEMOGLOBIN 26.1 pg (28-32); MEAN CORPUSCULAR VOLUME 84.2 fL (81-99); MONOCYTES # (AUTO) 1.8 (0.2-0.8); MONOCYTES % 8.8 % (4.4-11.3); NEUTROPHILS # (AUTO) 14.5 (2.1-6.9); NEUTROPHILS % 72.1 % (38.7-80.0); PLATELET COUNT 368 x10e3/uL (140-360); RED BLOOD COUNT 3.03 x10e6/uL (3.6-5.1); RED CELL DISTRIBUTION WIDTH 14.1 % (11.7-14.4)
[2019-06-09 06:52] LABS: ALBUMIN 2.3 g/dL (3.5-5.0); ALBUMIN/GLOBULIN RATIO 0.6 (0.8-2.0); ANION GAP 13.2 mmol/L (8-16); CALCIUM 8.5 mg/dL (8.4-10.2); CREATININE, SERUM 1.36 mg/dL (0.57-1.11); POTASSIUM 3.2 mmol/L (3.5-5.1)
[2019-06-09 07:21] LABS: CREATINE KINASE MB 1.3 ng/mL (0-5.0)
[2019-06-09] MEDS: INSULIN LISPRO 100 UNIT/1 ML 3ML VIAL SQ SCH ×4 (07:30→21:00)
[2019-06-09] MEDS: PANTOPRAZOLE SODIUM 40 MG SUSPDR.PKT PO SCH ×2 (09:00→16:47)
--- NOTE | 2019-06-09 09:00 | NUR ---
The pt. was received with comp about the current iv placement. She reports that she arthritis in her hands and the iv is causing her worse pain. The supervisor wool shearing was notified to change the site as the pt. reports she is a very hard stick and has had to have picc line and Ij sites in the past.
--- NOTE | 2019-06-09 09:09 | Diagnostic Imaging Report ---
Chest, 1 view, 06/09/2019. History: Body aches. Comparison: 06/08/2019. Findings: The cardiomediastinal silhouette and pulmonary vasculature are mildly prominent. There is no focal consolidation or pleural effusion. Old fracture of the proximal left clavicle is again noted. There are no acute osseous or soft tissue abnormalities. Impression: Mild cardiomegaly and pulmonary vascular congestion. Signed by: Phill Perez on 06/09/2019 9:06 AM
[2019-06-09] MEDS: CARVEDILOL 12.5 MG TAB PO SCH ×2 (09:29→17:44)
--- NOTE | 2019-06-09 14:07 | NUR ---
WOUND CARE CONSULT 59 YO FEMALE DIABETIC PATIENT HX UTI ,SEPSIS, PNEUMONIA CHRISTIEN 2O ON CONSERVATIVE PUP AND INTERVENTIONS ALTERNATING PRESSURE MATTRESS LABS: WBC- 20.09 HGB- 7.9 GLUCOSE -204 SKIN ASSESSMENT COMPLETE PATIENT PRESENTS WITH RIGHT LATERAL FOOT 5TH MET HEAD DIABETIC ULCERATION MEASURING 2.5CM X2CM X1CM 2O% SLOUGH NOTED TO OTHERWISE PALE PINK GLANDULAR WOUND BASE CALLUS EDGES NOTED MAYA WOUND EDGES PATIENT REPORTS BEING SEEN AND UNDER THE CARE OF MD AT [facility] AND CURRENT TREATMENT INCLUDES DAILY CLEANING WITH PEROXIDE AND BETADINE AND APPLICATION OF BACITRACIN OINTMENT COVER WITH 4X4 AND KERLIX WRAP. RECOMMENDATIONS : PATIENT IN MY OPINION WOULD BENEFIT FROM PODIATRY CONSULT FOR CALLUS REMOVAL FROM WOUND EDGES AND ALSO SLOUGH REMOVAL FROM WOUND BASE . DAILY SANTYL APPLICATION WOULD ALSO HELP TO DECREASE SLOUGH BUILDUP TO WOUND BASE PATIENT STATES SHE PREFERS TO CONTINUE CURRENT TREATMENT SHE HAS BEEN FOLLOWING WET TO DRY DRESSING PLACED UNTIL FURTHER ORDERS RECONSULT WOUND CARE FOR ANY FURTHER ASSISTANCE NEEDED Addendum: 06/09/19 at 1423 by Irvin Cooper RN Amended: Links added.
--- NOTE | 2019-06-09 14:38 | Diagnostic Imaging Report ---
Right upper quadrant abdominal ultrasound, 06/09/2019. History: Right upper quadrant pain. Abnormal LFTs. Comparison: CT 03/28/2019. Discussion: Transverse and longitudinal images of the right upper quadrant of the abdomen were obtained demonstrating a liver of increased size and mildly heterogeneous echogenicity measuring 18.3 cm in length. There is mild nodularity of the surface contour but no evidence of a focal hepatic mass. The portal vein is patent with hepatopetal flow and is within normal limits measuring 11 mm in diameter. The biliary tree is within normal limits with the common bile duct measuring 4 mm in diameter. The gallbladder is absent. The right kidney is normal in size and echogenicity without evidence of hydronephrosis, stones, or mass and measures 9.6 cm in length. The pancreatic <body and tail> are visualized and are normal in appearance. The abdominal aorta is within normal limits. There is no evidence of free fluid. IMPRESSION: 1. Mild hepatomegaly with findings of cirrhosis but no focal hepatic abnormality. Contrast-enhanced MRI or CT would be more sensitive for detection of HCC. 2. Status post cholecystectomy. Signed by: Phill Perez on 06/09/2019 2:35 PM
[2019-06-09] MEDS: ONDANSETRON HCL INJ 2MG/ML 2ML 2 MG/ML VIAL IV PRN ×2 (15:00→19:19)
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
[2019-06-09] MEDS: CEFTRIAXONE SOD 1 GM/NS 50 ML 50 ML IV SCH (17:43)
[2019-06-09] MEDS: AZITHROMYCIN 500MG/NS 250 ML 250 ML IV SCH (17:43)
--- NOTE | 2019-06-09 19:20 | NUR ---
RECEIVED THE PT IN REPORT.LYEING IN THE BED.NAUSEATED.PAIN VOICED 01/26.
--- NOTE | 2019-06-09 19:30 | NUR ---
Call placed for different med for nausea and pain med.
[2019-06-09] MEDS: METOCLOPRAMIDE HCL 10 MG/2ML VIAL IV SCH (20:30)
--- NOTE | 2019-06-09 20:30 | NUR ---
RECEIVED NEW ORDERS FROM DR.NASSIF SARABIA.INJ.REGLAN IV GIVEN.REFUSED TO TAKE ORAL PILLS.NOTIFIED TO .CALL PLACED TO ANSWERING SERVICE OF SAYED AND LEFT MESSAGE ABOUT CONSULTATION AND PAIN MEDICATION ORDER.WAITING FOR REPLY.
[2019-06-09] MEDS: TRAZODONE HCL 50 MG TAB PO SCH (21:00)
[2019-06-09] MEDS: ATORVASTATIN 40 MG TAB PO SCH (21:00)
[2019-06-09] MEDS ORDERED: PROMETHAZINE 25MG/ NS 50ML (IV) IV ONE (22:00)
--- NOTE | 2019-06-09 22:25 | NUR ---
PATIENT IS RESTING NOW.FAMILY MEMBER AT BEDSIDE.REFUSED TO ADMINISTER INSULIN AND NIGHT MEDICATIONS. STATED THAT" PATIENT IS RESTING NOW.DON'T WAKE HER UP".
[2019-06-09] MEDS ORDERED: PROMETHAZINE 25MG/ NS 50ML (IV) IV NR (22:30)
--- NOTE | 2019-06-09 23:10 | NUR ---
BEDTIME MEDICATION REFUSED.NOTIFIED TO DR.NASSIF SARABIA.
[2019-06-10] VITALS (9 sets, daily range): BP systolic 98–195; BP diastolic 55–87
--- NOTE | 2019-06-10 00:04 | NUR ---
TEMP NOTED HIGH .NOTIFIED TO DR.NASSIF SARABIA.ORDERED TYLENOL TGFAL442 MG PRN.IMPLEMENTED.KEEP MONITOR THE PT.
[2019-06-10] MEDS: ACETAMINOPHEN 325 MG SUPP PR PRN (00:06)
--- NOTE | 2019-06-10 00:53 | NUR ---
INTERNAL MEDICINE PRIMARY CARE DOCTOR: Sindy León. coverage for Dr. Pradeep Mcqueen, hospital doctor. DATE: 06/09/19 SUBJECTIVE: Reports of repetitive nausea Some emesis reported Lots of pain no SOB REVIEW OF SYSTEMS: no rash, No depression. OBJECTIVE: VITAL SIGNS: vital signs noted, reviewed per the chart record. GENERAL: appears tired, no acute distress, oriented. HEENT: Normocephalic, atraumatic. NECK: Supple. Throat midline. LUNGS: Bilateral air entry is okay, rare rhonchi. CARDIOVASCULAR: S1, S2. No murmurs, rubs, or gallops. ABDOMINAL: Soft, mostly nontender, just some nonspecific right upper quadrant tenderness. EXTREMITIES: No clubbing, no cyanosis, no edema. INTEGUMENT: No rash or purpura. LABORATORY DATA: k 3.2, cr 1.26, 20 wbc, hct 26, plt 368 IMPRESSION AND PLAN: 1. Febrile syndrome, sepsis. 2. Possible viral upper respiration infection. 3. Urinary tract infection. 4. Nonspecific right upper quadrant abdominal pain, history of cholecystectomy. 5. Splenectomy state. 6. Acute kidney injury/chronic kidney disease. 7. Diabetes. 8. Hypertension. Continue IV fluids. Continue empiric antibiotic. Diet encourage if feasible Antiemetics Multiple calls for pain meds with multiple bad reactions cited. Pain medicine specialty asked to help We will follow along closely. Thank you very much, Dr. Lomeli for allowing Dr. Mcqueen and I the chance to participate in the care of Ms. Gordon. Please call for questions.
[2019-06-10] MEDS ORDERED: POTASSIUM CHLORIDE 20MEQ/100ML 200 ML IV ONE (01:00)
[2019-06-10] MEDS: SODIUM CHLORIDE 0.9% 1000ML 1,000 ML IV SCH ×2 (02:19→15:28)
--- NOTE | 2019-06-10 02:38 | NUR ---
Rechecked temp.after administered tylenol suppository noted 99.5
[2019-06-10] MEDS: METOCLOPRAMIDE HCL 10 MG/2ML VIAL IV SCH ×4 (03:30→21:30)
--- NOTE | 2019-06-10 03:33 | NUR ---
Stool culture to be collected.provided container.comfortably resting now.
[2019-06-10] MEDS ORDERED: PROMETHAZINE 25MG/ NS 50ML (IV) IV ONE (05:26)
--- NOTE | 2019-06-10 07:00 | NUR ---
BEDSIDE SHIFT REPORT RECEIVED FROM THE GENERATOR REPAIRER RN. EDUCATED PT ABOUT FALL PRECAUTIONS. CALL LIGHT WITH IN EASY REACH. INSTRUCTED PT TO USE CALL LIGHT FOR ALL THE NEEDS. PT VERBALIZED UNDERSTANDING. BED IS LOW AND LOCKED. SIDE RAILS X2. BED ALARM IS ON. PT DENIES NEEDS AT THIS TIME.
--- NOTE | 2019-06-10 07:20 | NUR ---
BSSR GIVEN TO ONCOMING RN.STABLE CONDITION.
[2019-06-10] MEDS: CARVEDILOL 12.5 MG TAB PO SCH ×2 (08:13→16:33)
[2019-06-10] MEDS: HYDROCODONE/APAP 7.5MG-325MG 1 EA TAB PO PRN ×2 (08:24→17:11)
[2019-06-10] MEDS: PANTOPRAZOLE SODIUM 40 MG SUSPDR.PKT PO SCH ×2 (08:24→16:42)
[2019-06-10] MEDS: ACETAMINOPHEN 325 MG TAB PO PRN (08:24)
[2019-06-10] MEDS: INSULIN LISPRO 100 UNIT/1 ML 3ML VIAL SQ SCH ×4 (08:30→21:00)
[2019-06-10 08:33] LABS: BASOPHILS # (AUTO) 0.1 (0.0-0.1); BASOPHILS % 0.3 % (0.0-1.0); EOSINOPHILS # (AUTO) 0.1 (0.0-0.4); EOSINOPHILS % 0.4 % (0.0-6.0); HEMATOCRIT 26.3 % (34.2-44.1); HEMOGLOBIN 8.2 g/dL (12.0-16.0); LYMPHOCYTES # (AUTO) 1.9 (1.0-3.2); LYMPHOCYTES % 8.3 % (18.0-39.1); MEAN CORPUSCULAR HEMOGLOBIN 26.1 pg (28-32); MEAN CORPUSCULAR HGB CONC 31.2 g/dL (31-35); MEAN CORPUSCULAR VOLUME 83.8 fL (81-99); MONOCYTES # (AUTO) 1.8 (0.2-0.8); MONOCYTES % 7.8 % (4.4-11.3); NEUTROPHILS # (AUTO) 18.8 (2.1-6.9); NEUTROPHILS % 82.3 % (38.7-80.0); PLATELET COUNT 394 x10e3/uL (140-360); RED BLOOD COUNT 3.14 x10e6/uL (3.6-5.1); RED CELL DISTRIBUTION WIDTH 14.3 % (11.7-14.4)
--- NOTE | 2019-06-10 08:40 | Diagnostic Imaging Report ---
Chest, 1 view, 06/10/2019. History: CHF, pneumonia. Comparison: 06/09/2019. Findings: The cardiomediastinal silhouette and pulmonary vasculature are prominent. Diffuse alveolar opacities are now present throughout the left lung, increased compared to prior exam.. Are no acute osseous or soft tissue abnormalities. Impression: Increased left-sided pulmonary opacities may represent asymmetric edema versus pneumonia. Signed by: Phill Perez on 06/10/2019 8:38 AM
[2019-06-10 08:53] LABS: ALBUMIN 2.4 g/dL (3.5-5.0); ALBUMIN/GLOBULIN RATIO 0.5 (0.8-2.0); CALCIUM 8.8 mg/dL (8.4-10.2); CREATININE, SERUM 1.23 mg/dL (0.57-1.11); MAGNESIUM 1.7 MG/DL (1.3-2.1)
[2019-06-10] MEDS ORDERED: BISACODYL 5 MG TAB EC PO PRN (16:00)
[2019-06-10] MEDS: CEFTRIAXONE SOD 1 GM/NS 50 ML 50 ML IV SCH (16:31)
[2019-06-10] MEDS: DOCUSATE SODIUM 100 MG CAP PO SCH (16:42)
[2019-06-10] MEDS ORDERED: DOCUSATE SODIUM LIQD 100 MG/10 ML UDC NG SCH (17:00)
[2019-06-10] MEDS: AZITHROMYCIN 500MG/NS 250 ML 250 ML IV SCH (17:11)
[2019-06-10] MEDS: ONDANSETRON HCL INJ 2MG/ML 2ML 2 MG/ML VIAL IV PRN (17:34)
--- NOTE | 2019-06-10 18:42 | Progress Note ---
DATE: 06/10/2019 CONSULTANTS: Dr. Mckeon with ID. Dr. Padilla with Pain Management. CHIEF COMPLAINT: Generalized pain, fever. SUBJECTIVE: The patient was seen in the room complaining of chills and feeling cold. She was noted to have fever this morning. She reports body aches and cough, nonproductive. She reports diarrhea, has stopped, now constipated x3 days. Reports nausea and vomiting. PHYSICAL EXAMINATION: VITAL SIGNS: Temperature 98.0, pulse is 60, respirations 20, blood pressure 119/72, pulse ox 97% on room air. GENERAL: Chills and fatigue. HEENT: Normocephalic, atraumatic. NECK: Supple. CARDIOVASCULAR: Regular rate and rhythm. LUNGS: Decreased breath sounds. ABDOMEN: Soft and nontender. NEUROLOGIC: Alert, awake, and oriented x3. MUSCULOSKELETAL: Moves all extremities. SKIN: Dry. LABORATORY DATA: WBC 22.75, hemoglobin is 8.2, hematocrit is 26.3, and platelets 394. Sodium 135, potassium 4.0, BUN is 14, creatinine is 1.23, estimated GFR is 54. AST 15, ALT is 12, alkaline phosphate is 126. Troponin 0.032. Albumin 2.4, globulin 4.4. IMAGING: Chest x-ray, increased left-sided pulmonary opacities, may represent asymmetric edema versus pneumonia. IMPRESSION: 1. Sepsis due to upper respiratory infection versus pneumonia. We will continue on Rocephin and azithromycin. ID on the case. Blood cultures and throat cultures negative. Influenza A and B negative. 2. Possible urinary tract infection. Urine culture was contaminated. 3. Right upper quadrant abdominal pain. History of cholecystectomy with nausea, vomiting. AST and bilirubin within normal limits, likely due to viral enteritis. 4. Acute kidney injury. We will continue with IV fluids and monitor trend. 5. Diabetes. Continue sliding scale insulin. 6. Hypertension. Continue home medications. 7. History of splenectomy. Aware. 8. Deep venous thrombosis prophylaxis. SCDs due to anemia. Hemoglobin 8.2. 9. Plan is to continue current treatments. Further recommendations per ID. Dictated by JUANIS Thakkar Debiching Pradeep Mcqueen MD MY/MODL /[id number] Seen and examined on 06/10/2019. Agree with the findings and plan as documented by JUANIS Jenkins. GREY
--- NOTE | 2019-06-10 19:00 | NUR ---
BEDSIDE SHIFT REPORT GIVEN TO THE CONTROLLER COAL OR ORE RN. PT DENIED FURTHER NEEDS
--- NOTE | 2019-06-10 19:12 | NUR ---
Received the patient in report.lyeing in the bed.stable condition.
--- NOTE | 2019-06-10 21:50 | NUR ---
Assessment done.aaox3.ambulates.no resp.distress.dressing changed.patient tolerated well.bed locked and in lowest position.phone and call light within reach.instructed to call for assistance as needed.
[2019-06-10] MEDS: TRAZODONE HCL 50 MG TAB PO SCH (21:55)
[2019-06-10] MEDS: ATORVASTATIN 40 MG TAB PO SCH (21:56)
[2019-06-11] VITALS (8 sets, daily range): BP systolic 112–155; BP diastolic 54–83
[2019-06-11] MEDS: ONDANSETRON HCL INJ 2MG/ML 2ML 2 MG/ML VIAL IV PRN ×4 (00:29→19:59)
[2019-06-11] MEDS: IPRATROPIUM BROMIDE 0.02% 2.5 ML NEB NEB PRN ×2 (00:35→07:00)
[2019-06-11] MEDS: ALBUTEROL SULF 0.083% NEB SOLN 3 ML NEB NEB PRN ×2 (00:35→07:00)
[2019-06-11] MEDS: ACETAMINOPHEN 325 MG SUPP PR PRN (00:41)
[2019-06-11] MEDS ORDERED: PROMETHAZINE 25MG/ NS 50ML (IV) IV ONE (01:00)
--- NOTE | 2019-06-11 01:37 | NUR ---
Has nausea.notified to inpatient services director of .received new orders .implemented.pain voiced 10/26.refused pain medication.had bowel movement.
[2019-06-11] MEDS: METOCLOPRAMIDE HCL 10 MG/2ML VIAL IV SCH ×4 (03:53→21:41)
[2019-06-11] MEDS: SODIUM CHLORIDE 0.9% 1000ML 1,000 ML IV SCH ×2 (05:45→17:50)
--- NOTE | 2019-06-11 07:00 | NUR ---
BEDSIDE SHIFT REPORT RECEIVED FROM THE DENTAL BILLER RN. EDUCATED PT ABOUT FALL PRECAUTIONS. CALL LIGHT WITH IN EASY REACH. INSTRUCTED PT TO USE CALL LIGHT FOR ALL THE NEEDS. PT VERBALIZED UNDERSTANDING. BED IS LOW AND LOCKED. SIDE RAILS X2. BED ALARM IS ON. PT DENIES NEEDS AT THIS TIME.
--- NOTE | 2019-06-11 07:10 | NUR ---
BED SIDE SHIFT REPORT GIVEN TO ONCOMING RN.STABLE CONDITION.
[2019-06-11 07:25] LABS: BASOPHILS # (AUTO) 0.1 (0.0-0.1); BASOPHILS % 0.3 % (0.0-1.0); HEMOGLOBIN 7.3 g/dL (12.0-16.0); LYMPHOCYTES # (AUTO) 3.4 (1.0-3.2); LYMPHOCYTES % 14.2 % (18.0-39.1); MEAN CORPUSCULAR HEMOGLOBIN 26.2 pg (28-32); MEAN CORPUSCULAR HGB CONC 30.4 g/dL (31-35); MONOCYTES # (AUTO) 1.9 (0.2-0.8); MONOCYTES % 7.9 % (4.4-11.3); NEUTROPHILS # (AUTO) 18.5 (2.1-6.9); NEUTROPHILS % 76.8 % (38.7-80.0); PLATELET COUNT 382 x10e3/uL (140-360); RED BLOOD COUNT 2.79 x10e6/uL (3.6-5.1); RED CELL DISTRIBUTION WIDTH 14.8 % (11.7-14.4)
[2019-06-11 07:51] LABS: ANION GAP 17.3 mmol/L (8-16); CALCIUM 8.6 mg/dL (8.4-10.2); CREATININE, SERUM 1.66 mg/dL (0.57-1.11); POTASSIUM 4.3 mmol/L (3.5-5.1)
[2019-06-11] MEDS: HYDROCODONE/APAP 7.5MG-325MG 1 EA TAB PO PRN ×2 (07:59→17:51)
[2019-06-11] MEDS: PANTOPRAZOLE SODIUM 40 MG SUSPDR.PKT PO SCH ×2 (07:59→17:50)
[2019-06-11] MEDS: CARVEDILOL 12.5 MG TAB PO SCH ×2 (07:59→17:50)
[2019-06-11] MEDS: DOCUSATE SODIUM 100 MG CAP PO SCH ×2 (07:59→17:50)
[2019-06-11] MEDS: INSULIN LISPRO 100 UNIT/1 ML 3ML VIAL SQ SCH ×4 (08:30→21:30)
--- NOTE | 2019-06-11 09:00 | NUR ---
JOSE CORONADO NP AND REPORTED THE HGB VALUE 7.3.
[2019-06-11] MEDS: FENTANYL 25 MCG/HR PATCH TOP SCH (09:09)
[2019-06-11] MEDS ORDERED: CEFEPIME HCL 1 GM VIAL IV SCH (10:30)
[2019-06-11 10:36] LABS: % IRON SATURATION 6 % (15-50); IRON 11 ug/dL (50-170); TOTAL IRON BINDING CAPACITY 185 ug/dL (261-478); TRANSFERRIN 132 mg/dL (180-382)
[2019-06-11] MEDS: CEFEPIME 1GM/NS 0.9% 50 ML 50 ML IV SCH ×2 (11:11→23:10)
[2019-06-11] MEDS: IRON SUCROSE 100 MG in SODIUM CHLORIDE 0.9% 100 ML 100 ML IV SCH (12:20)
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
[2019-06-11] MEDS: METRONIDAZOLE 500MG/NS 100ML 100 ML IV SCH ×2 (13:38→21:41)
[2019-06-11] MEDS ORDERED: DIATRIZOATE MEGL/DIATRIZOA SOD 30 ML BTL PO ONE (13:53)
[2019-06-11] MEDS: ACETAMINOPHEN 325 MG TAB PO PRN (16:22)
--- NOTE | 2019-06-11 16:25 | Diagnostic Imaging Report ---
CT of the abdomen and pelvis, without contrast, 06/11/2019. History: Fever, nausea, abdominal pain. Comparison: Ultrasound 06/09/2019. CT abdomen 03/27/2019. Technique: Multidetector CT scanning of the abdomen and pelvis was performed from the level of the lung bases to the inferior pubic rami without intravenous contrast. Oral contrast was given. Coronal and sagittal multiplanar reformations were obtained. RADIATION DOSE: Total DLP: 552 mGy*cm Dose modulation, iterative reconstruction, and/or weight based adjustment of the mA/kV was utilized to reduce the radiation dose to as low as reasonably achievable. Discussion: Examination is limited without contrast. Lung bases: Bilateral perihilar ground glass opacities, patchy bibasilar consolidation left greater than right, and small pleural effusions are present. Abdomen: The liver is enlarged and nodular. The biliary tree, spleen, pancreas, adrenal glands, and kidneys are unremarkable. Linear calcifications in the renal matthew are likely vascular. Cholecystectomy clip is noted. A 1.5 cm oval exophytic lesion is seen arising from the lower pole of the left kidney measuring 57 Hounsfield units in density. The abdominal aorta is within normal limits. Stomach is unremarkable. Suture material is noted distal small bowel. There is no bowel dilatation. The appendix is visualized and is normal. There is no evidence of adenopathy or free fluid. Pelvis: The bladder is unremarkable. The uterus and adnexa are not visualized. Multiple calcified phleboliths are present bilaterally. There is no evidence of free fluid or adenopathy. Bones and soft tissues: Degenerative changes are present throughout the lumbar spine without evidence of lytic or sclerotic lesion. IMPRESSION: 1. Bibasilar opacities concerning for pneumonia. 2. Enlarged cirrhotic liver. 3. Left renal lesion without change, most likely a hyperdense cyst which may be confirmed with ultrasound. 4. Status post hysterectomy. Otherwise unremarkable noncontrast exam. Signed by: Phill Perez on 06/11/2019 4:23 PM
--- NOTE | 2019-06-11 19:00 | NUR ---
BEDSIDE SHIFT REPORT GIVEN TO THE INSPECTOR GOVERNMENT PROPERTY RN. PT DENIED FURTHER NEEDS.
--- NOTE | 2019-06-11 19:05 | NUR ---
BEDSIDE SHIFT REPORT RECEIVED FROM THE PREVOIUS SHIFT RN. EDUCATED PATIENT ABOUT FALL PRECAUTIONS. CALL LIGHT IN EASY REACH. INSTRUCTED PATIENT TO USE CALL LIGHT FOR ANY NEEDS. PATIENT VERBALIZE UNDERSTANDING. BED IS LOW, WHEELS LOCKED, SIDE RALES UP X2 FOR SAFETY. PT DENIES NEEDS AT THIS TIME
[2019-06-11] MEDS: TRAZODONE HCL 50 MG TAB PO SCH (21:41)
[2019-06-11] MEDS: ATORVASTATIN 40 MG TAB PO SCH (21:41)
[2019-06-12] VITALS (8 sets, daily range): BP systolic 120–186; BP diastolic 58–80
--- NOTE | 2019-06-12 00:40 | NUR ---
RIGHT FOOT DRESSING CHANGED .TOLERATED WELL.REFUSED TO TAKE PAIN MEDICATIONS.BED LOCKED AND IN LOWEST POSITION.PHONE AND CALL LIGHT WITHIN REACH.INSTRUCTED TO CALL FOR ASSISTANCE NEEDED.FAMILY MEMBER AT BED SIDE.
[2019-06-12] MEDS: METOCLOPRAMIDE HCL 10 MG/2ML VIAL IV SCH ×4 (03:18→21:28)
[2019-06-12] MEDS: ALBUTEROL SULF 0.083% NEB SOLN 3 ML NEB NEB PRN (03:20)
[2019-06-12] MEDS: IPRATROPIUM BROMIDE 0.02% 2.5 ML NEB NEB PRN (03:20)
[2019-06-12] MEDS: ONDANSETRON HCL INJ 2MG/ML 2ML 2 MG/ML VIAL IV PRN ×3 (04:30→17:23)
[2019-06-12 05:40] LABS: BASOPHILS # (AUTO) 0.1 (0.0-0.1); BASOPHILS % 0.3 % (0.0-1.0); HEMATOCRIT 23.2 % (34.2-44.1); HEMOGLOBIN 7.3 g/dL (12.0-16.0); LYMPHOCYTES # (AUTO) 1.7 (1.0-3.2); LYMPHOCYTES % 7.1 % (18.0-39.1); MEAN CORPUSCULAR HEMOGLOBIN 26.1 pg (28-32); MEAN CORPUSCULAR HGB CONC 31.5 g/dL (31-35); MEAN CORPUSCULAR VOLUME 82.9 fL (81-99); MONOCYTES # (AUTO) 1.7 (0.2-0.8); MONOCYTES % 6.8 % (4.4-11.3); NEUTROPHILS # (AUTO) 20.4 (2.1-6.9); NEUTROPHILS % 84.6 % (38.7-80.0); PLATELET COUNT 423 x10e3/uL (140-360)
[2019-06-12] MEDS: ACETAMINOPHEN 325 MG TAB PO PRN ×2 (05:45→18:30)
[2019-06-12] MEDS: METRONIDAZOLE 500MG/NS 100ML 100 ML IV SCH ×3 (05:46→21:28)
[2019-06-12 05:54] LABS: ANION GAP 17.1 mmol/L (8-16); CALCIUM 8.8 mg/dL (8.4-10.2); CREATININE, SERUM 1.73 mg/dL (0.57-1.11); POTASSIUM 4.1 mmol/L (3.5-5.1)
[2019-06-12] MEDS: SODIUM CHLORIDE 0.9% 1000ML 1,000 ML IV SCH (06:21)
--- NOTE | 2019-06-12 07:00 | NUR ---
BED SIDE SHIFT REPORT GIVEN TO ONCOMING RN.STABLE CONDITION.
--- NOTE | 2019-06-12 07:00 | NUR ---
BEDSIDE SHIFT REPORT RECEIVED FROM THE PAINT MIXER MACHINE RN. EDUCATED PT ABOUT FALL PRECAUTIONS. CALL LIGHT WITH IN EASY REACH. INSTRUCTED PT TO USE CALL LIGHT FOR ALL THE NEEDS. PT VERBALIZED UNDERSTANDING. BED IS LOW AND LOCKED. SIDE RAILS X2. BED ALARM IS ON. PT DENIES NEEDS AT THIS TIME.
[2019-06-12] MEDS: HYDROCODONE/APAP 7.5MG-325MG 1 EA TAB PO PRN (08:00)
[2019-06-12] MEDS: INSULIN LISPRO 100 UNIT/1 ML 3ML VIAL SQ SCH ×4 (08:30→21:33)
--- NOTE | 2019-06-12 08:35 | Diagnostic Imaging Report ---
EXAMINATION: CHEST SINGLE (PORTABLE) INDICATION: ^rule out parapneumonic effusion ^[id number] ^[id number] COMPARISON: 06/10/2019 FINDINGS: TUBES and LINES: None. LUNGS: Bilateral pulmonary venous congestion and central pulmonary edema. PLEURA: Moderate right and small left pleural effusions. No pneumothorax. HEART AND MEDIASTINUM: The cardiomediastinal silhouette is unremarkable. BONES AND SOFT TISSUES: No acute osseous lesion. Soft tissues are unremarkable. UPPER ABDOMEN: No free air under the diaphragm. IMPRESSION: Worsening of bilateral pulmonary edema with increasing pleural effusions. Signed by: Dr. Allan Drew M.D. on 06/12/2019 8:33 AM
[2019-06-12] MEDS: CARVEDILOL 12.5 MG TAB PO SCH ×2 (08:51→17:45)
[2019-06-12] MEDS: DOCUSATE SODIUM 100 MG CAP PO SCH ×2 (09:03→17:45)
[2019-06-12] MEDS: PANTOPRAZOLE SODIUM 40 MG SUSPDR.PKT PO SCH ×2 (09:03→17:45)
[2019-06-12 09:05] LABS: ALBUMIN 2.3 g/dL (3.5-5.0); BILIRUBIN,DIRECT 0.2 mg/dL (0.0-0.5)
[2019-06-12 09:49] LABS: HIV 1&2 AB SCREEN NON-REACTIVE (NONREACTIVE)
[2019-06-12] MEDS: CEFEPIME 1GM/NS 0.9% 50 ML 50 ML IV SCH ×2 (10:59→23:09)
[2019-06-12] MEDS: IRON SUCROSE 100 MG in SODIUM CHLORIDE 0.9% 100 ML 100 ML IV SCH (13:00)
[2019-06-12] MEDS ORDERED: FUROSEMIDE INJ 10 MG/ML 4 ML VIAL IV NR (14:15)
[2019-06-12] MEDS ORDERED: TORSEMIDE 10 MG TAB PO SCH (15:00)
--- NOTE | 2019-06-12 15:00 | NUR ---
CLIFF HICKS AT BEDSIDE. NEW ORDER FOR CENTRAL LINE NON TUNNELED.
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
[2019-06-12] MEDS ORDERED: PROMETHAZINE 25MG/ NS 50ML (IV) IV NR (18:15)
--- NOTE | 2019-06-12 19:00 | NUR ---
BEDSIDE SHIFT REPORT GIVEN TO THE LLAMA FARMER RN. PT DENIED FURTHER NEEDS.
--- NOTE | 2019-06-12 19:33 | NUR ---
Received report from day nurse. patient is resting comfortably in the bed. bed is in the lowest position and call alonzo is within reach. will continue to monitor patient
[2019-06-12] MEDS: TRAZODONE HCL 50 MG TAB PO SCH (21:00)
[2019-06-12] MEDS: ATORVASTATIN 40 MG TAB PO SCH (21:28)
[2019-06-13] VITALS (8 sets, daily range): BP systolic 137–199; BP diastolic 64–91
--- NOTE | 2019-06-13 00:11 | NUR ---
patient is feeling nausea and is throwing up. patient has zofran prn on profile but has refused to take it. patient is requesting for phenergan instead. paged awaiting call back.
[2019-06-13] MEDS: PROMETHAZINE 12.5MG/ NACL 0.9% 12.5 MG/50 ML BAG IV PRN ×3 (01:05→23:33)
[2019-06-13] MEDS: HYDRALAZINE HCL 20 MG/ML VIAL IV PRN ×3 (01:06→19:35)
--- NOTE | 2019-06-13 01:43 | NUR ---
patient is requesting for a dressing change. dressing has been change. patient tolerated procedure well. will continue to monitor patient.
[2019-06-13] MEDS: METOCLOPRAMIDE HCL 10 MG/2ML VIAL IV SCH ×4 (03:11→23:32)
[2019-06-13] MEDS: METRONIDAZOLE 500MG/NS 100ML 100 ML IV SCH ×2 (05:41→14:05)
--- NOTE | 2019-06-13 07:00 | NUR ---
BEDSIDE SHIFT REPORT RECEIVED FROM NIGHT RN. PT DENIES NEEDS AT THIS TIME.
--- NOTE | 2019-06-13 07:15 | NUR ---
report given to day nurse. patient is resting comfortably in bed. bed is in lowest position and call light is within reach.
[2019-06-13 07:38] LABS: BASOPHILS # (AUTO) 0.1 (0.0-0.1); BASOPHILS % 0.3 % (0.0-1.0); EOSINOPHILS % 0.2 % (0.0-6.0); HEMATOCRIT 24.3 % (34.2-44.1); HEMOGLOBIN 7.6 g/dL (12.0-16.0); LYMPHOCYTES # (AUTO) 2.1 (1.0-3.2); LYMPHOCYTES % 9.1 % (18.0-39.1); MEAN CORPUSCULAR HGB CONC 31.3 g/dL (31-35); MEAN CORPUSCULAR VOLUME 83.2 fL (81-99); MONOCYTES # (AUTO) 1.5 (0.2-0.8); MONOCYTES % 6.3 % (4.4-11.3); NEUTROPHILS # (AUTO) 18.9 (2.1-6.9); NEUTROPHILS % 81.3 % (38.7-80.0); PLATELET COUNT 415 x10e3/uL (140-360); RED BLOOD COUNT 2.92 x10e6/uL (3.6-5.1); RED CELL DISTRIBUTION WIDTH 15.2 % (11.7-14.4)
[2019-06-13] MEDS: DOCUSATE SODIUM 100 MG CAP PO SCH ×2 (08:50→17:07)
[2019-06-13] MEDS: PANTOPRAZOLE SODIUM 40 MG SUSPDR.PKT PO SCH ×2 (08:50→17:08)
[2019-06-13] MEDS: VANCOMYCIN 1GM/NS 250 ML 250 ML IV SCH (08:50)
[2019-06-13] MEDS: TORSEMIDE 10 MG TAB PO SCH (08:50)
[2019-06-13] MEDS: CARVEDILOL 12.5 MG TAB PO SCH ×2 (08:50→17:08)
[2019-06-13] MEDS: INSULIN LISPRO 100 UNIT/1 ML 3ML VIAL SQ SCH ×4 (08:51→21:00)
--- NOTE | 2019-06-13 10:33 | Diagnostic Imaging Report ---
Exam: Right foot radiographs-3 views Clinical History: Query osteomyelitis. Comparison: None. Findings: No evidence of acute displaced fracture malalignment. There is bony sclerosis with expansion of the proximal aspect of the third toe proximal phalanx. There is a cortical defect along the base which represent erosion. There is soft tissue edema in the midfoot and forefoot. Mild degenerative changes in the midfoot. There is a mildly sclerotic appearance of the base of the second through fifth metatarsals and the tarsals. On the lateral view, there is cortical thickening overlying the dorsal aspect of the midfoot, possibly the cuboid. There is a soft tissue defect along the lateral aspect of the base of the small toe without evidence of bony destructive changes. Impression: Possible osteomyelitis at the base of the third toe proximal phalanx. Sclerotic appearance in the midfoot could reflect degenerative changes or chronic osteomyelitis. MRI of the forefoot /midfoot with and without contrast would be helpful for further characterization. Soft tissue defect at the base of the small toe without evidence of bony injury. Signed by: Dr. Jacquelin Felipe MD on 06/13/2019 10:31 AM
[2019-06-13 10:42] LABS: LYMPHOCYTES % (MANUAL) 10 % (19-48); MONOCYTES % (MANUAL) 4 % (3.4-9.0); NEUTROPHILS % (MANUAL) 86 % (40-74)
[2019-06-13] MEDS: CEFEPIME 1GM/NS 0.9% 50 ML 50 ML IV SCH (11:46)
[2019-06-13] MEDS: IRON SUCROSE 100 MG in SODIUM CHLORIDE 0.9% 100 ML 100 ML IV SCH (12:54)
[2019-06-13] MEDS ORDERED: FUROSEMIDE INJ 10 MG/ML 4 ML VIAL IV NR (13:15)
[2019-06-13] MEDS ORDERED: FUROSEMIDE INJ 10 MG/ML 2 ML VIAL IV PRN (13:30)
[2019-06-13] MEDS ORDERED: PROMETHAZINE HCL 25 MG SUPP PR PRN (13:30)
[2019-06-13] MEDS ORDERED: SODIUM CHLORIDE 0.9% 250ML 250 ML IV NR (13:30)
--- NOTE | 2019-06-13 15:45 | Diagnostic Imaging Report ---
EXAMINATION: CHEST SINGLE (PORTABLE) INDICATION: Pulmonary edema. COMPARISON: Chest radiograph 06/12/2019. FINDINGS: TUBES and LINES: None. LUNGS: Improving bilateral interstitial and airspace opacities. Persistent patchy lower lung zone opacities. PLEURA: Decreasing small bilateral pleural effusions, right greater than left. No pneumothorax. HEART AND MEDIASTINUM: The cardiomediastinal silhouette is mildly enlarged. BONES AND SOFT TISSUES: No acute osseous lesion. Soft tissues are unremarkable. UPPER ABDOMEN: No free air under the diaphragm. IMPRESSION: Improving pulmonary edema with decreasing small bilateral pleural effusions and decreasing lower lung zone opacities, likely atelectasis. Signed by: Dr. Jacquelin Felipe MD on 06/13/2019 3:43 PM
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
[2019-06-13] MEDS ORDERED: SODIUM CHLORIDE 0.9% 250ML 250 ML ONE (19:35)
--- NOTE | 2019-06-13 19:47 | Diagnostic Imaging Report ---
Exam: RIGHT FOREFOOT MRI WITHOUT CONTRAST TECHNIQUE: Magnetic resonance imaging of the right forefoot foot was performed WITHOUT injected contrast. HISTORY: Pain, osteomyelitis, abscess COMPARISON: Right foot x-rays 06/13/2019 9:15 AM DISCUSSION: The midfoot is partially included on which limits evaluation. Bone: Fluid hyperintense signal on fat-suppressed sequences within the marrow of the following bones: * proximal phalanges of the third through fifth toes. * The second through fifth metatarsals * Cuneiforms Hypointense marrow signal on T1 sequence in the following sites:. * Base of third toe proximal phalanx * First toe distal phalanx. * Third metatarsal base (series 4 image 9) * Intermediate cuneiform No fractures. Joints: Joint space loss and osteophytes in the midfoot. Without joint effusion or No dislocations. Soft Tissues: Forefoot/midfoot tissue edema with multiple fluid hyperintense loculations which extend from the third interphalangeal space to the lateral dorsal mid/forefoot soft tissues where there is a 2.6 cm collection. Edema in the plantar and dorsal fascia. IMPRESSION: Acute destructive osteomyelitis of the third toe proximal phalanx with small surrounding abscesses including a 2.6 centimeter abscess in the lateral dorsal midfoot mid/forefoot soft tissues above the fourth metatarsal. Plantar forefoot soft tissue defect. Acute osteomyelitis of the first toe distal phalanx. Marrow edema in the fourth and fifth toes and second through fifth metatarsals where early osteomyelitis is possible. The midfoot is partially included on the scan. Tarsal marrow edema and fat signal loss replacement, osteomyelitis or neuropathic joint are considerations. The foot x-ray suggests midfoot/tarsal erosive changes. RECOMMEND right midfoot MRI WITH and WITHOUT contrast for further evaluation. Signed by: Brayan Gomez DO on 06/13/2019 7:45 PM
--- NOTE | 2019-06-13 20:00 | NUR ---
Unit of blood has started infusing. patient is tolerating procedure well. no adverse reactions observed. will continue to monitor infusion process.
[2019-06-13] MEDS: ATORVASTATIN 40 MG TAB PO SCH (21:00)
[2019-06-13] MEDS: TRAZODONE HCL 50 MG TAB PO SCH (21:00)
--- NOTE | 2019-06-13 21:45 | Consultation ---
DATE OF CONSULTATION: 06/13/2019 CONSULTING PHYSICIAN: Dr. Burrell. CHIEF COMPLAINT/HISTORY OF PRESENT ILLNESS: This is a pleasant 59-year-old female who was admitted last Friday in regard to increasing white count as well as possible upper respiratory tract infection. The patient does relay a history of being on a cruise approximately week and half ago. States she did start feeling some shortness of breath. She is having nausea currently as well as vomiting. At this point in time, she states she does not have any pain to the right lower extremity. The patient also does relay a history of getting into the Jacuzzi on the cruise ship, while she was on the cruise despite having an open ulceration to the right foot. PAST MEDICAL HISTORY: Significant for: 1. Diabetes mellitus. 2. Peripheral neuropathy. 3. Hypertension. 4. Peripheral vascular disease. 5. Hepatic cirrhosis. FAMILY MEDICAL HISTORY: Mother has had a myocardial infarction as well as diabetes mellitus. Father has had no diabetes. Grand parents both were diabetic. Both grand mother and grand father. ALLERGIES: THE PATIENT HAS NO KNOWN DRUG ALLERGIES. MEDICATIONS: Extensive list, see chart. PREVIOUS SURGICAL HISTORY: She had a previous amputation of the left 3rd digit, splenectomy as well as cholecystectomy. REVIEW OF SYSTEMS: See admission . PHYSICAL EXAMINATION: GENERAL: The patient is alert, awake, oriented x3, in no acute distress. VITAL SIGNS: Temperature is 99.0 this was 8 o'clock this morning, pulse 96, respiratory rate 18, blood pressure is 194/88. LABORATORY DATA: WBC is 22.75 down from 24, RBC is 3.14, hemoglobin 8.2, hematocrit is 26.3, platelet count 394,000. Neutrophils are elevated. Finger stick blood sugars 272. Urine is negative for ketones. RADIOGRAPHIC EXAMINATION: Three views of the foot were performed, which were negative for subcutaneous emphysema, possible erosion at the base of the third digit on the right lower extremity. Films were not able to be visualized. However, there is soft tissue defect at the base of the small toe without evidence of bony injury. Additionally, possible osteomyelitis at the base of the third digit, right foot. MRI is pending. VASCULAR EXAMINATION OF THE RIGHT LOWER EXTREMITY: The patient has nonpalpable dorsalis pedis and posterior tibial pulse right lower extremity. There is an elevation of exam reveals increased erythema namely along the dorsolateral aspect of the right foot. The right third digit has significant venous congestion, consistent with gangrene. Additionally on the lateral aspect of the right foot and with palpation of the right foot, there is seropurulent drainage, exiting from this wound. Orthopedic examination reveals previous left third digit amputation right lower extremity and bilaterally. ASSESSMENT: 1. Abscess right foot. 2. Osteomyelitis, right third digit. 3. Diabetes mellitus with peripheral neuropathy. 4. Peripheral vascular disease. 5. Hepatic cirrhosis. 6. pleural effusion with possible pneumonia with current shortness of breath. RECOMMENDATIONS: At this point in time, the MRI is pending. Following the MRI, further definitive surgical plan will be instituted. This patient will need and I and D with possible third ray amputation of right lower extremity. Risks and complications of the procedure were discussed. I am concerned regarding the shortness of breath, given this patient has a very low H and H. I will discuss this with Ethan, our nurse practitioner and we will plan on surgical intervention for tomorrow. Risks and complications were discussed with the patient. All questions were answered and no guarantees were given. We will continue Betadine wet-to-dry dressings on a daily basis. Cultures are pending. Also, ordered blood cultures. Osei Burrell DPM MM/JONATHAN /[id number] cc: Ramses Nunes DPM
--- NOTE | 2019-06-13 22:40 | NUR ---
unit of blood is complete. patient tolerated procedure well. no adverse reactions observed.
[2019-06-14] VITALS (8 sets, daily range): BP systolic 172–207; BP diastolic 68–95
[2019-06-14] MEDS: CEFEPIME 1GM/NS 0.9% 50 ML 50 ML IV SCH ×2 (00:48→12:00)
[2019-06-14] MEDS: METRONIDAZOLE 500MG/NS 100ML 100 ML IV SCH ×4 (01:46→22:23)
[2019-06-14] MEDS: METOCLOPRAMIDE HCL 10 MG/2ML VIAL IV SCH ×4 (02:01→21:53)
[2019-06-14] MEDS: HYDRALAZINE HCL 20 MG/ML VIAL IV PRN ×2 (02:03→11:27)
[2019-06-14] MEDS: PROMETHAZINE 12.5MG/ NACL 0.9% 12.5 MG/50 ML BAG IV PRN ×3 (05:33→21:55)
[2019-06-14 05:59] LABS: BASOPHILS # (AUTO) 0.1 (0.0-0.1); BASOPHILS % 0.4 % (0.0-1.0); EOSINOPHILS % 0.1 % (0.0-6.0); HEMATOCRIT 26.4 % (34.2-44.1); HEMOGLOBIN 8.7 g/dL (12.0-16.0); LYMPHOCYTES # (AUTO) 3.1 (1.0-3.2); LYMPHOCYTES % 15.8 % (18.0-39.1); MEAN CORPUSCULAR HEMOGLOBIN 26.5 pg (28-32); MEAN CORPUSCULAR VOLUME 80.5 fL (81-99); MONOCYTES # (AUTO) 1.9 (0.2-0.8); MONOCYTES % 9.7 % (4.4-11.3); NEUTROPHILS # (AUTO) 13.8 (2.1-6.9); NEUTROPHILS % 71.2 % (38.7-80.0); PLATELET COUNT 481 x10e3/uL (140-360); RED BLOOD COUNT 3.28 x10e6/uL (3.6-5.1); RED CELL DISTRIBUTION WIDTH 15.1 % (11.7-14.4)
[2019-06-14 06:26] LABS: ANION GAP 18.3 mmol/L (8-16); CALCIUM 9.4 mg/dL (8.4-10.2); CREATININE, SERUM 1.54 mg/dL (0.57-1.11); POTASSIUM 3.3 mmol/L (3.5-5.1)
--- NOTE | 2019-06-14 07:22 | NUR ---
report given to day nurse. patient is resting comfortably in bed. bed is in lowest position and call light is within reach.
[2019-06-14] MEDS: INSULIN LISPRO 100 UNIT/1 ML 3ML VIAL SQ SCH ×4 (07:30→21:00)
[2019-06-14] MEDS: DOCUSATE SODIUM 100 MG CAP PO SCH ×2 (09:00→17:00)
[2019-06-14] MEDS: TORSEMIDE 10 MG TAB PO SCH (09:00)
[2019-06-14] MEDS: PANTOPRAZOLE SODIUM 40 MG SUSPDR.PKT PO SCH ×2 (09:00→17:00)
[2019-06-14] MEDS: CARVEDILOL 12.5 MG TAB PO SCH ×2 (09:00→17:00)
[2019-06-14] MEDS: FENTANYL 25 MCG/HR PATCH TOP SCH (09:30)
[2019-06-14] MEDS ORDERED: PROMETHAZINE HCL (IM) 25 MG/ML VIAL IM ONE (11:00)
[2019-06-14] MEDS: VANCOMYCIN 1GM/NS 250 ML 250 ML IV SCH (11:00)
--- NOTE | 2019-06-14 11:22 | Diagnostic Imaging Report ---
EXAMINATION: CHEST XRAY LINE PLACEMENT INDICATION: Line placement COMPARISON: Chest are graft 06/13/2019 FINDINGS: LINES/TUBES:Interval placement of right PICC line, terminating in the superior vena cava. LUNGS:The lungs are moderately inflated. There is perihilar fullness and indistinctness of the pulmonary vasculature. PLEURA:Small bilateral layering pleural effusions. No pneumothorax. MEDIASTINUM:Cardiomediastinal silhouette is stably enlarged. BONES/SOFT TISSUES:No acute osseous injury. ABDOMEN:No free air under the diaphragm. IMPRESSION: Right PICC line terminates in the superior vena cava. Unchanged cardiomegaly. Mild pulmonary interstitial edema. Likely small layering bilateral pleural effusions. Signed by: Demond Almaguer MD on 06/14/2019 11:19 AM
[2019-06-14] MEDS ORDERED: POTASSIUM CHLORIDE 10MEQ/100ML 100 ML IV ONE ×2 (11:30→16:30)
--- NOTE | 2019-06-14 11:30 | NUR ---
Pt had PICC line placed to right upper ext double lumen. Placement was verified by xray and is ready to use.
--- NOTE | 2019-06-14 11:30 | NUR ---
Spoke to KURT Valencia regarding DC plan. States MRI pending. Plan is IV abx vs amputation. Pending round by Dr. Quiroga.
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
[2019-06-14] MEDS ORDERED: GLYCOPYRROLATE INJ 0.2 MG/ML VIAL ONE (12:37)
[2019-06-14] MEDS ORDERED: ONDANSETRON HCL INJ 2MG/ML 2ML 2 MG/ML VIAL ONE (12:37)
[2019-06-14] MEDS ORDERED: LIDOCAINE HCL 2% LOCAL INJ 5 ML SDV VIAL INJ ONE (12:37)
[2019-06-14] MEDS ORDERED: SUCCINYLCHOLINE CHLORIDE 20 MG/ML 10ML VIAL ONE (12:37)
[2019-06-14] MEDS ORDERED: ROCURONIUM BROMIDE 10 MG/ML 5ML VIAL ONE (12:37)
[2019-06-14] MEDS ORDERED: PROPOFOL IV EMULSION 10 MG/ML 20 ML VIAL ONE (12:37)
[2019-06-14] MEDS ORDERED: SEVOFLURANE INHAL SOLN 250 ML PEN BTL ONE (12:37)
[2019-06-14] MEDS ORDERED: DEXAMETHASONE SOD PHOS INJ 4 MG/ML VIAL ONE (12:37)
[2019-06-14] MEDS ORDERED: NEOSTIGMINE 1 MG/ML 10ML VIAL ONE ×2 (12:37→13:06)
--- NOTE | 2019-06-14 13:00 | NUR ---
Received call from OR that Dr. Burrell is doing procedure at 1330. Called Dr. Quiroga to clarify if the procedure was going to be done by him or Dr. Burrell. Dr. Quiroga states it will be done by Dr. Burrell. Pt was consented for procedure and was transferred to OR at this time by stretcher. Family at the bedside.
[2019-06-14] MEDS ORDERED: BUPIVACAINE HCL 0.5% INJ 30 ML VIAL INJ ONE (13:06)
[2019-06-14] MEDS ORDERED: BACITRACIN 50,000 UNIT VIAL ONE (13:06)
[2019-06-14] MEDS ORDERED: BETAMETHASONE DISODIUM PHOS 6 MG/ML VIAL ONE (13:07)
[2019-06-14] MEDS ORDERED: FENTANYL CITRATE/PF 100MCG/2 ML INJ ONE (13:15)
[2019-06-14] MEDS ORDERED: MIDAZOLAM HCL 2 MG/2 ML VIAL ONE (13:15)
[2019-06-14] MEDS ORDERED: INSULIN REGULAR, HUMAN 100 UNIT/1 ML 3ML VIAL ONE (13:26)
[2019-06-14] MEDS ORDERED: METRONIDAZOLE 500MG/NS 100ML 100 ML IV ONE (14:01)
--- NOTE | 2019-06-14 15:00 | NUR ---
Pt returned from OR at this time. Pt had i/d to right foot with 4th toe amputation. Dressing is dry and intact. Right foot elevated on pillows.
[2019-06-14] MEDS: IRON SUCROSE 100 MG in SODIUM CHLORIDE 0.9% 100 ML 100 ML IV SCH (15:50)
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
[2019-06-14] MEDS: MORPHINE SULFATE 2 MG/ML SYR 1ML IV PRN ×2 (17:51→21:55)
--- NOTE | 2019-06-14 19:18 | NUR ---
received report from day nurse. patient is resting comfortably in the bed. bed is in the lowest position and call light is within reach. will continue to monitor patient.
[2019-06-14] MEDS: TRAZODONE HCL 50 MG TAB PO SCH (21:00)
[2019-06-14] MEDS: ATORVASTATIN 40 MG TAB PO SCH (21:00)
[2019-06-14] MEDS ORDERED: SODIUM CHLORIDE 0.9% 250ML 250 ML ONE (21:43)
[2019-06-15] VITALS (9 sets, daily range): BP systolic 146–215; BP diastolic 86–112
[2019-06-15] MEDS: CEFEPIME 1GM/NS 0.9% 50 ML 50 ML IV SCH (00:05)
--- NOTE | 2019-06-15 00:59 | Operative Report ---
DATE OF PROCEDURE: 06/14/2019 SURGEON: Osei Burrell DPM PREOPERATIVE DIAGNOSES: 1. Osteomyelitis and abscess, right foot, 4th digit and 4th metatarsal. 2. Abscess, right foot. POSTOPERATIVE DIAGNOSES: 1. Osteomyelitis and abscess, right foot, 4th digit and 4th metatarsal. 2. Abscess, right foot. PROCEDURE: 1. Incision and drainage of abscess, right foot. 2. Partial 4th metatarsal amputation with amputation of the right 4th digit. ANESTHESIA: General anesthesia. HEMOSTASIS: Calf tourniquet at 275 mmHg. MATERIALS: 1/2-inch Iodoform packing, 2-0 nylon. INJECTABLES: None. PROCEDURE IN DETAIL: The patient was brought to the operating room and placed on the operating table in the supine position, following induction of general anesthesia, a calf tourniquet was placed about the patient's right calf. The right foot and ankle were prepped and draped in a normal sterile fashion. The leg was then exsanguinated and the tourniquet was inflated at approximately 275 mmHg. At this point in time, inspection was carried down to the level of the right 4th digit, where it was noted that the 4th digit had essentially no vascular flow and this was determined prior to elevation in the tourniquet. Due to this, amputation of the 3rd digit was performed using a 15-blade at the metatarsophalangeal joint. During this amputation, significant amount of purulence was exited from the wound. Cultures were taken and they will be sent for aerobic and anaerobic afb as well as Gram- stain. These cultures were taken right at the 3rd metatarsophalangeal joint. It should be noted also intra-articularly, there was purulence within this area and purulence surrounding the 3rd metatarsal head both dorsally, laterally, and plantarly. The purulence extended at the extensor tendon sheath as well as to the plantar flexor tendon sheath on the right foot. At this point in time, using a sagittal saw, the distal aspect of the 4th metatarsal was surgically resected and removed from operative field. All rough edges were then smoothed. Additionally, a proximal margin was taken and this would be sent for pathology to ensure that we have adequate resection of the infection. At this point in time, the subcutaneous tissue dorsally and inferiorly were surgically removed that contained purulence. Incision was carried proximally within mid arch of the right lower extremity down to the flexor tendon sheath deep to the plantar fascia, given the fact the purulence travelled at the flexor tendon sheath. At this point in time, all purulence was surgically removed. At this point in time, a pulse lavage system using 3 L of bacitracin antibiotic solution were administered and irrigated the area. The proximal and distal margins both superiorly and inferiorly were then reapproximated and coapted using 2-0 nylon. The distal aspect was packed with 1/2-inch Iodoform packing. Prior to doing so, the tourniquet was deflated and excellent hemostasis was achieved. At this point in time, a dry sterile dressing was placed at the area followed by an HUNTER compression bandage. The patient tolerated the procedure and anesthesia well. The patient transferred to PACU with vital signs and vascularity intact to the right lower extremity. It should be noted that during the procedure, there was a sluggish blood flow towards the distal aspect of the foot and due to that Vascular specialist will be consulted. The patient tolerated the procedure and anesthesia well. Pt will be transferred to PACU and all preop medication will be re-instituted. Osei JOSEF Burrell MM/JONATHAN /[id number] GREY
[2019-06-15] MEDS: METOCLOPRAMIDE HCL 10 MG/2ML VIAL IV SCH ×4 (02:48→21:00)
[2019-06-15] MEDS: METRONIDAZOLE 500MG/NS 100ML 100 ML IV SCH (05:20)
--- NOTE | 2019-06-15 06:44 | NUR ---
patient is resting in bed. bed is in lowest position and call alonzo is within reach.
[2019-06-15] MEDS: MORPHINE SULFATE 2 MG/ML SYR 1ML IV PRN ×2 (07:56→18:02)
[2019-06-15] MEDS: HYDRALAZINE HCL 20 MG/ML VIAL IV PRN ×3 (08:30→21:42)
[2019-06-15] MEDS: LINEZOLID 600 MG/D5W 300ML 300 ML IV SCH ×2 (08:40→20:30)
[2019-06-15] MEDS: INSULIN LISPRO 100 UNIT/1 ML 3ML VIAL SQ SCH ×4 (08:41→21:00)
[2019-06-15] MEDS: PANTOPRAZOLE SODIUM 40 MG SUSPDR.PKT PO SCH ×2 (09:00→17:00)
[2019-06-15] MEDS: DOCUSATE SODIUM 100 MG CAP PO SCH ×2 (09:00→17:00)
[2019-06-15] MEDS: CARVEDILOL 12.5 MG TAB PO SCH ×2 (09:00→17:00)
[2019-06-15] MEDS ORDERED: SODIUM CHLORIDE 0.9% 1000ML 1,000 ML IV SCH ×2 (09:50→10:00)
[2019-06-15] MEDS ORDERED: CLONIDINE HCL 0.1 MG/24 HR 1 EA PATCH TOP SCH (10:15)
--- NOTE | 2019-06-15 10:15 | NUR ---
Notified attending that BP still very even after receiving PRN BP medications, also pt is very nauseas. Received orders for clonidine patch and new consult for Dr. Branham for continuous vomiting.
[2019-06-15] MEDS ORDERED: AMLODIPINE BESYLATE 5 MG TAB PO SCH (10:30)
--- NOTE | 2019-06-15 10:46 | Progress Note ---
DATE: 06/15/2019 SUBJECTIVE: The patient at this point in time, currently denies any fever. She is having currently nausea and vomiting still, which is continued and chills intermittently. At this point in time, the patient states her right foot is nonpainful. OBJECTIVE: GENERAL: The patient is alert, awake, and oriented x3, currently not in acute distress. VITAL SIGNS: Temperature is 99.0, pulse 86, respiratory rate 18, blood pressure is 174/68, and pulse ox is 98. LABORATORY DATA: WBC is 19.32, hemoglobin is 8.7, hematocrit 26.4, platelet count is 481, neutrophils have normalized to 71.2. Blood glucose is 328. Wound cultures taken on 06/13/2019, are positive for Enterococcus sensitivities are pending. I did speak with Dr. Mckeon yesterday, he is aware of this. Deep wound cultures intraoperatively are still pending. Postoperative x-rays are pending. minimal strikethrough drainage on dressing. The skin margins are well coapted in healthy condition, still mild erythema plantarly is noted, however, this is improving compared to her previous evaluation intraoperatively, otherwise no active drainage. The packing is intact. Soft tissue appeared be improving. There is decreased edema and decreased erythema overall. ASSESSMENT: 1. Status post I and D with partial 4th digit and 4th metatarsal resection. 2. Diabetes mellitus, uncontrolled. 3. Peripheral vascular disease, right lower extremity. RECOMMENDATIONS: 1. At this point in time, the dressing was changed. The packing will be changed later on today. Additionally, I have recommend continue IV antibiotics per Dr. Mckeon and medical management per Dr. Mcqueen. 2. Vascular consultation has been ordered by Dr. Mcqueen for Dr. Boswell for possible angioplasty of the right lower extremity. This may increase blood flow to promote healing potential at the right lower extremity. 3. At this point in time, we will continue with and we will start daily dressing changes, pack removing and irrigation, and repacking on a daily basis. Osei JOSEF Burrell MM/JONATHAN /[id number] GREY
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
[2019-06-15] MEDS: IRON SUCROSE 100 MG in SODIUM CHLORIDE 0.9% 100 ML 100 ML IV SCH (12:00)
[2019-06-15] MEDS ORDERED: PROMETHAZINE 12.5MG/ NACL 0.9% 12.5 MG/50 ML BAG IV PRN (15:15)
[2019-06-15 15:29] LABS: BASOPHILS # (AUTO) 0.1 (0.0-0.1); BASOPHILS % 0.3 % (0.0-1.0); EOSINOPHILS % 0.1 % (0.0-6.0); HEMATOCRIT 25.2 % (34.2-44.1); HEMOGLOBIN 8.4 g/dL (12.0-16.0); LYMPHOCYTES # (AUTO) 3.6 (1.0-3.2); LYMPHOCYTES % 19.5 % (18.0-39.1); MEAN CORPUSCULAR HEMOGLOBIN 26.8 pg (28-32); MEAN CORPUSCULAR HGB CONC 33.3 g/dL (31-35); MEAN CORPUSCULAR VOLUME 80.3 fL (81-99); MONOCYTES % 11.2 % (4.4-11.3); NEUTROPHILS % 65.5 % (38.7-80.0); PLATELET COUNT 477 x10e3/uL (140-360); RED BLOOD COUNT 3.14 x10e6/uL (3.6-5.1); RED CELL DISTRIBUTION WIDTH 15.4 % (11.7-14.4)
[2019-06-15] MEDS: CLONIDINE HCL 0.3MG/24 HR PATCH TOP SCH (16:03)
[2019-06-15 16:04] LABS: ANION GAP 12.8 mmol/L (8-16); BLOOD UREA NITROGEN 22 mg/dL (7-26); BUN/CREATININE RATIO 22 (6-25); CALCIUM 8.4 mg/dL (8.4-10.2); CARBON DIOXIDE 24 mmol/L (22-29); CHLORIDE 107 mmol/L (98-107); CREATININE, SERUM 1.01 mg/dL (0.57-1.11); EST GLOMERULAR FILTRATION RATE > 60 ML/MIN (60-); GLUCOSE 136 mg/dL (74-118); SODIUM 141 mmol/L (136-145)
[2019-06-15 16:10] LABS: POTASSIUM 2.8 mmol/L (3.5-5.1)
[2019-06-15 16:22] LABS: ALBUMIN 2.2 g/dL (3.5-5.0); BILIRUBIN,DIRECT 0.2 mg/dL (0.0-0.5)
[2019-06-15] MEDS ORDERED: POTASSIUM CHLORIDE 20MEQ/100ML 300 ML IV ONE (16:30)
--- NOTE | 2019-06-15 16:30 | NUR ---
Notified Dr. Sutherland of K-2.8 and received orders to give KCL 60MEQ IV
--- NOTE | 2019-06-15 17:51 | Diagnostic Imaging Report ---
EXAM: Renal Ultrasound INDICATION: ^MEGHANN ^[id number] ^[id number] COMPARISON: None TECHNIQUE: Transverse and longitudinal images of the kidneys and bladder were obtained. FINDINGS: Right Kidney: Length: 10.7 cm Appearance: Normal echogenicity. Collecting system: No hydronephrosis Stones: None Cyst/Mass: None Left Kidney: Length: 12.7 cm Appearance: Normal echogenicity. Collecting system: No hydronephrosis Stones: None Cyst/Mass: Lower pole exophytic simple cyst measures up to 1.3 cm. Bladder: Distended bladder. No mass or calculi. Bilateral ureteral jets seen. Prevoid volume estimate of 619cc. IMPRESSION: No renal calculi or hydronephrosis. Left lower pole simple cyst. Distended bladder. Signed by: Demond Almaguer MD on 06/15/2019 5:48 PM
[2019-06-15] MEDS ORDERED: ENALAPRILAT IV INJ 1.25 MG/ML VIAL IV SCH (18:00)
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
[2019-06-15 18:51] LABS: HYPOCHROMASIA MODERATE; LYMPHOCYTES % (MANUAL) 30 % (19-48); MONOCYTES % (MANUAL) 10 % (3.4-9.0); MYELOCYTES % (MANUAL) 2 % (0-0); NEUTROPHILS % (MANUAL) 53 % (40-74); PLATELET ESTIMATE ADEQUATE; PLATELET MORPHOLOGY COMMENT NORMAL; RBC MORPHOLOGY COMMENT NORMAL
[2019-06-15] MEDS: TRAZODONE HCL 50 MG TAB PO SCH (20:56)
[2019-06-15] MEDS: ATORVASTATIN 40 MG TAB PO SCH (21:00)
[2019-06-15] MEDS: NIFEDIPINE CR 30 MG TAB PO SCH (21:00)
--- NOTE | 2019-06-15 23:05 | Consultation ---
DATE OF CONSULTATION: 06/15/2019 REASON FOR CONSULTATION: Clearance for angiogram. The patient has abnormal kidney function. HISTORY OF PRESENT ILLNESS: This is a 59-year-old diabetic lady who underwent I and D of her foot and amputation of 2 foot toes. Wound culture is positive for Enterococcus, Infection Disease is following. Patient is on antibiotics. Has been nauseated, throwing up, which is refractory to treatment so far the last 36 hours, currently, receiving IV normal saline. States Phenergan is not working. They initially tried Zofran and failed. She has workup includes an ultrasound of the abdomen shows 9.6 cm right kidney with mild hepatomegaly with findings of cirrhosis. The patient herself denies any history of kidney disorder. She has diabetes, hypertension, peripheral vascular disease and peripheral neuropathy. LABORATORY TESTS: Show serum sodium 139, potassium 3.3, bicarbonate 20, BUN 28, creatinine 1.54, this was done yesterday, calcium 9.4, blood sugar 240. ALLERGIES: SHE IS ALLERGIC TO LISINOPRIL. CURRENT MEDICATIONS: Include amlodipine 5 mg daily, she is on linezolid, she is on cefepime, also receiving IV Venofer, Tylenol p.r.n., she is on Phenergan 12.5 mg IV q.6h., she is on Reglan 10 mg IV q.6h., torsemide 20 mg daily, trazodone 150 mg p.o. at bedtime and she is on nifedipine. SOCIAL HISTORY: Does not smoke or drink. by bedside. FAMILY HISTORY: Significant for diabetes. PHYSICAL EXAMINATION: GENERAL: Awake, alert, lying supine, in no apparent distress. VITAL SIGNS: Blood pressure is 215/109, pulse rate 88, afebrile, oxygen saturation 100%. HEAD AND NECK: Cornea clear. Oral mucosa moist. LUNGS: Clear. No rales. HEART: S1 and S2 audible. ABDOMEN: Otherwise soft, nontender. LOWER EXTREMITY: Examination shows dressing of the foot. No edema. IMPRESSION AND PLAN: Poorly controlled hypertension in a lady with most likely diabetic nephropathy with acute kidney injury, most likely chronic kidney disease 3 with poorly controlled hypertension, most likely gastroparesis. She has had prior cholecystectomy. control blood pressure, nausea, rule out causes for worsening of nausea and vomiting. She is at moderate to high risk of dye-induced nephropathy. I will discontinue torsemide, discontinue amlodipine, start nifedipine 60 mg p.o. q.12h., increase Phenergan to 25 mg q.6 1st dose now. Discontinue IV normal saline which is going at 125 mL an hour. Renal workup ordered. I will start her on hydralazine at 10 mg q.4 h., change Clonidine TTS patch 3, change hydralazine to 10 mg IV q.4 p.r.n. blood pressure 140 or more. Please see orders. MD NILTON Patton/MODL /[id number]
[2019-06-16] VITALS (9 sets, daily range): BP systolic 166–202; BP diastolic 74–108
[2019-06-16] MEDS: MORPHINE SULFATE 2 MG/ML SYR 1ML IV PRN ×4 (02:07→19:31)
[2019-06-16] MEDS: METOCLOPRAMIDE HCL 10 MG/2ML VIAL IV SCH ×4 (03:00→21:55)
[2019-06-16] MEDS: HYDRALAZINE HCL 20 MG/ML VIAL IV PRN (04:00)
[2019-06-16] MEDS: PROMETHAZINE 25MG/ NS 50ML (IV) IV PRN ×3 (04:25→22:10)
[2019-06-16 06:05] LABS: ALBUMIN 2.3 g/dL (3.5-5.0); ALBUMIN/GLOBULIN RATIO 0.5 (0.8-2.0); ANION GAP 12.6 mmol/L (8-16); CALCIUM 8.8 mg/dL (8.4-10.2); CREATININE, SERUM 1.16 mg/dL (0.57-1.11); POTASSIUM 3.6 mmol/L (3.5-5.1)
--- NOTE | 2019-06-16 06:42 | NUR ---
patient is resting in the bed, bed is in lowest position and call alonzo is within reach.
[2019-06-16] MEDS: ALBUTEROL SULF 0.083% NEB SOLN 3 ML NEB NEB PRN (07:10)
[2019-06-16] MEDS: IPRATROPIUM BROMIDE 0.02% 2.5 ML NEB NEB PRN (07:10)
[2019-06-16] MEDS: INSULIN LISPRO 100 UNIT/1 ML 3ML VIAL SQ SCH ×4 (07:30→21:00)
[2019-06-16] MEDS: ASPIRIN 81 MG CHEW TAB PO SCH (09:00)
[2019-06-16] MEDS: PANTOPRAZOLE SODIUM 40 MG SUSPDR.PKT PO SCH ×2 (09:00→17:00)
[2019-06-16] MEDS: CARVEDILOL 12.5 MG TAB PO SCH ×2 (09:00→16:23)
[2019-06-16] MEDS: DOCUSATE SODIUM 100 MG CAP PO SCH ×2 (09:00→17:00)
[2019-06-16] MEDS: NIFEDIPINE CR 30 MG TAB PO SCH ×2 (09:00→21:55)
[2019-06-16] MEDS: LINEZOLID 600 MG/D5W 300ML 300 ML IV SCH ×3 (09:51→21:55)
--- NOTE | 2019-06-16 10:32 | Progress Note ---
DATE: 06/16/2019 Cardiology Progress Note SUBJECTIVE: Still nauseated with decreased p.o. intake. OBJECTIVE: VITAL SIGNS: Temperature 98.2, heart rate 99, respiratory rate 20, O2 saturation 100%. Blood pressure 166/74, BMI 31. GENERAL: In mild distress. Alert and oriented. NECK: No JVD. CHEST: Clear to auscultation. CARDIOVASCULAR: Regular rate and rhythm. Normal S1, S2. ABDOMEN: Soft. Bowel sounds positive. EXTREMITIES: No edema. Right foot covered with dressings. CARDIOVASCULAR MEDICATIONS: Reviewed. 1. Aspirin 81 mg daily. 2. Furosemide 20 mg p.r.n. posttransfusion. 3. Atorvastatin 40 mg at bedtime. 4. Hydralazine 10 mg q.4 hours. 5. Carvedilol 25 mg b.i.d. 6. Nifedipine 60 mg every 12 hours. 7. On iron supplementation and on antibiotics. LABORATORY DATA: Bicarbonate 25, potassium 3.6, creatinine 1.16. White blood cells 18.2, hemoglobin 8.4, platelets 477. ASSESSMENT AND PLAN: A 59-year-old woman with: 1. Right 4th toe osteomyelitis and abscess status post ray amputation and abscess drainage with abnormal arterial Dopplers concerning for severe [id number] level peripheral arterial disease/multilevel PAD. 2. Diabetes mellitus. 3. Nausea and vomiting concerning for gastroparesis. 4. Hypertension, uncontrolled. 5. Decreased p.o. intake. 6. Acute kidney injury, recovering. RECOMMEND: Coordinating care with primary care and Nephrology given the patient's decreased p.o. intake, persistent nausea and issues with renal function. At this point in time, we will hold on angiography and reassess later this week depending on the patient's clinical course for appropriate time to proceed. Monitor H and H and continue to optimize blood pressure. Defer antihypertensive management to Nephrology. MD BHAVIK Romero/JONATHAN /[id number]
[2019-06-16 11:35] LABS: CREATININE,URINE RANDOM 26.66 mg/dL (47-110); TOTAL PROTEIN, URINE 152.4 mg/dL (1-14)
[2019-06-16] MEDS ORDERED: ASPIRIN EC81 MG PO (14:32)
[2019-06-16] MEDS ORDERED: B COMPLEX WITH1 EACH (14:33)
[2019-06-16] MEDS ORDERED: BACLOFEN10 MG PO (14:35)
[2019-06-16] MEDS ORDERED: OMEPRAZOLE40 MG (14:52)
[2019-06-16] MEDS ORDERED: ADVAIR HFA 115-12 GM (14:52)
[2019-06-16] MEDS ORDERED: ROPINIROLE HCL1 MG PO (14:52)
[2019-06-16] MEDS ORDERED: DIOVAN160 MG PO (14:52)
[2019-06-16] MEDS ORDERED: COMBIVENT RESPIM4 GM IH (14:52)
[2019-06-16] MEDS ORDERED: FAMOTIDINE20 MG PO (14:52)
[2019-06-16] MEDS ORDERED: CYMBALTA30 MG (14:52)
[2019-06-16] MEDS ORDERED: LYRICA75 MG (14:52)
[2019-06-16] MEDS ORDERED: HYDRALAZINE HCL25 MG PO (14:52)
[2019-06-16] MEDS ORDERED: TEMAZEPAM15 MG (14:52)
[2019-06-16] MEDS ORDERED: PIOGLITAZONE HC45 MG PO (14:52)
[2019-06-16] MEDS: IRON SUCROSE 100 MG in SODIUM CHLORIDE 0.9% 100 ML 100 ML IV SCH (15:20)
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
--- NOTE | 2019-06-16 19:25 | NUR ---
Patient received lying in bed. at bedside. AAO x 3. Patient had no complaints of pain. Respirations even and non-labored. Telemetry box in place. Fall precautions implemented. Patient instructed to call for assistance when needed. Call light within reach.
--- NOTE | 2019-06-16 20:30 | NUR ---
Dr. Branham here to see patient. Patient instructed about NPO status for EGD procedure on 06/17. Patient verbalized understanding.
[2019-06-16] MEDS: ATORVASTATIN 40 MG TAB PO SCH (21:55)
[2019-06-16] MEDS: TRAZODONE HCL 50 MG TAB PO SCH (21:55)
[2019-06-17] VITALS (9 sets, daily range): BP systolic 144–207; BP diastolic 65–95
[2019-06-17] MEDS: HYDRALAZINE HCL 20 MG/ML VIAL IV PRN (00:25)
[2019-06-17] MEDS: MORPHINE SULFATE 2 MG/ML SYR 1ML IV PRN ×2 (02:09→20:45)
[2019-06-17] MEDS: METOCLOPRAMIDE HCL 10 MG/2ML VIAL IV SCH ×4 (03:00→21:05)
[2019-06-17] MEDS: PROMETHAZINE 25MG/ NS 50ML (IV) IV PRN ×2 (04:30→20:45)
[2019-06-17 05:56] LABS: BASOPHILS % 0.2 % (0.0-1.0); EOSINOPHILS # (AUTO) 0.1 (0.0-0.4); EOSINOPHILS % 0.4 % (0.0-6.0); HEMATOCRIT 28.9 % (34.2-44.1); HEMOGLOBIN 9.6 g/dL (12.0-16.0); LYMPHOCYTES # (AUTO) 3.3 (1.0-3.2); LYMPHOCYTES % 17.8 % (18.0-39.1); MEAN CORPUSCULAR HEMOGLOBIN 26.8 pg (28-32); MEAN CORPUSCULAR HGB CONC 33.2 g/dL (31-35); MEAN CORPUSCULAR VOLUME 80.7 fL (81-99); MONOCYTES % 10.6 % (4.4-11.3); NEUTROPHILS # (AUTO) 12.8 (2.1-6.9); NEUTROPHILS % 68.5 % (38.7-80.0); PLATELET COUNT 578 x10e3/uL (140-360); RED BLOOD COUNT 3.58 x10e6/uL (3.6-5.1); RED CELL DISTRIBUTION WIDTH 15.5 % (11.7-14.4)
[2019-06-17 06:13] LABS: ANION GAP 15.2 mmol/L (8-16); BLOOD UREA NITROGEN 15 mg/dL (7-26); BUN/CREATININE RATIO 15 (6-25); CALCIUM 8.8 mg/dL (8.4-10.2); CARBON DIOXIDE 26 mmol/L (22-29); CHLORIDE 99 mmol/L (98-107); CREATININE, SERUM 0.97 mg/dL (0.57-1.11); EST GLOMERULAR FILTRATION RATE > 60 ML/MIN (60-); GLUCOSE 238 mg/dL (74-118); POTASSIUM 3.2 mmol/L (3.5-5.1); SODIUM 137 mmol/L (136-145)
--- NOTE | 2019-06-17 07:15 | NUR ---
Walking rounds/BSSR conducted.
[2019-06-17] MEDS: INSULIN LISPRO 100 UNIT/1 ML 3ML VIAL SQ SCH ×4 (07:30→21:00)
--- NOTE | 2019-06-17 08:01 | Consultation ---
DATE OF CONSULTATION: 06/15/2019 Gastroenterology Consultation DICTATED FOR: Bayron Branham MD ADDITIONAL ADMITTING PHYSICIAN: Basilio Collazo MD REASON FOR CONSULT: Intractable nausea, vomiting. CHIEF COMPLAINT: Sepsis. HISTORY OF PRESENT ILLNESS: The patient is a 59-year-old female with past medical history of diabetes, hypertension, GERD, chronic back pain, who presented to the ED with reports of fever, chills, body aches, and nausea along with vomiting. The patient is currently not a good historian due to lethargy and is not able to give me much information. According to sources, the patient had a recent trip on a cruise. She currently denies any diarrhea. However, she has had nausea, vomiting since she has been here at the hospital. While at the ER, she had a temperature up to 103 degrees Fahrenheit. Apparently, nasal flu swab was negative. She denies any melena, hematochezia, or hematemesis. She states that she has had an EGD last year, but does not recall the results. At this point, she denies any epigastric tenderness. REVIEW OF SYSTEMS: Negative unless mentioned above. PAST MEDICAL HISTORY: Diabetes, hypertension, GERD, and chronic osteomyelitis. MEDICATIONS: As per chart. ALLERGIES: LISINOPRIL, VANCOMYCIN. SURGERIES: Cholecystectomy, splenectomy, and hysterectomy along with amputation of left 3rd toe. SOCIAL HISTORY: The patient does not drink or use drugs. FAMILY HISTORY: Noncontributory. PHYSICAL EXAMINATION/OBJECTIVE: VITAL SIGNS: Noted and reviewed per chart record. GENERAL: Lethargic, unable to give a very good history, alert. HEENT: Normocephalic, atraumatic. NECK: Supple toward midline. LUNGS: Rhonchi. CARDIO: No murmurs, rubs, or gallops. ABDOMEN: Soft, nontender. Bowel sounds active. EXTREMITIES: No clubbing, cyanosis, or edema. PSYCH: Abnormal affect. MUSCULOSKELETAL: Normal range of motion. LABS AND IMAGING: White count 18.25, hemoglobin 8.4, hematocrit 25.2, MCV is 80.3, platelet count is 477. INR is 1.05. Sodium is 141, potassium is 2.8, chloride 106, carbon dioxide is 24, BUN 22, creatinine 1.01, glucose is 136. Iron is 11, TIBC 185, AST 16, ALT 22. IMPRESSION: 1. Intractable nausea, vomiting-suspect medication induced versus viral syndrome, given viral symptoms upon arrival. 2. Epigastric tenderness. 3. Positive fecal occult blood. 4. Gastroesophageal reflux disease. PLAN: 1. Continue IV fluids and supportive care. 2. We will plan to do an EGD tomorrow with Dr. Branham. 3. N.p.o. after midnight. 4. Consent has been ordered. If any improvement at any time, the patient may decide on not doing the EGD, but however, she is in agreement as discussed today. Thank you for the consult. Please call us if there are any questions. Dictated by Ria Wall PA-C Bayron Branham MD SS/MODL /[id number]
[2019-06-17] MEDS: NIFEDIPINE CR 30 MG TAB PO SCH ×2 (09:00→21:00)
[2019-06-17] MEDS: PANTOPRAZOLE SODIUM 40 MG SUSPDR.PKT PO SCH ×2 (09:00→21:00)
[2019-06-17] MEDS: DOCUSATE SODIUM 100 MG CAP PO SCH ×2 (09:00→17:00)
[2019-06-17] MEDS: ASPIRIN 81 MG CHEW TAB PO SCH (09:00)
[2019-06-17] MEDS: CARVEDILOL 12.5 MG TAB PO SCH ×2 (09:00→21:00)
[2019-06-17] MEDS: AMPICILLIN SOD/SULBACTAM 3GM 100 ML IV SCH ×2 (12:10→19:30)
--- NOTE | 2019-06-17 12:32 | NUR ---
LEFT FOR EGD WITH FAMILY
[2019-06-17] MEDS ORDERED: FENTANYL CITRATE/PF 100MCG/2 ML INJ ONE (14:16)
[2019-06-17] MEDS ORDERED: POTASSIUM CHLORIDE 20MEQ/100ML 200 ML IV ONE ×2 (15:00→19:00)
[2019-06-17] MEDS ORDERED: SODIUM CHLORIDE 0.9% 1000ML 1,000 ML IV SCH (16:00)
--- NOTE | 2019-06-17 17:09 | Progress Note ---
DATE: 06/17/2019 SUBJECTIVE: At this point in time, the patient was in the not in room. I discussed with the nurse specifically in regard to the improvement of the foot and also other medical issues. The patient is currently getting an EGD and then will be gone for another 4 hours for a swallow study. OBJECTIVE: VITAL SIGNS: At this point in time, vitals per chart are temperature 97.4, pulse is 99, respiratory rate 20, and blood pressure is 197/88. LABORATORY DATA: WBC is 18.7, RBC is 3.58; hemoglobin 9.6 and hematocrit 28.9, and platelet count is 578. Sodium 137, potassium 3.2, chloride level was 99, CO2 of 26, BUN is 15, creatinine 0.97. Blood sugars 238. MICROBIOLOGY: Enterococcus faecalis within the right foot was isolated, sensitive to linezolid, penicillin, vancomycin, and daptomycin, as well as ampicillin. Blood cultures are still negative 5 days growth and final report. At this point in time, nurse did state to me that the wound is pink, healthy, scaling of the skin on the plantar aspect of foot, indicating decreased edema. She states there is no purulence within the wound, also there is no granulation tissue nor bleeding when the wound packing has been removed. ASSESSMENT: 1. Status post I and D of the right lower extremity with 4th ray amputation. 2. Diabetes mellitus, obviously uncontrolled. 3. Pulmonary edema, possible pneumonia. 4. Rule out possible urinary tract infection. 5. Peripheral vascular disease. RECOMMENDATIONS: 1. At this point in time, without increased blood flow, this foot likely will be either very slow or will not heal and may include limb loss. 2. At this point in time, I recommend to refer Vascular evaluation per Dr. Boswell. We will continue with packing and local wound care. Further recommendations pending the patient's clinical progression. 3. I continue IV linezolid, which the patient is currently on. Osei Burrell DPM MM/JONATHAN /[id number]
[2019-06-17] MEDS ORDERED: PROPOFOL IV EMULSION 10 MG/ML 20 ML VIAL ONE (18:34)
--- NOTE | 2019-06-17 19:30 | NUR ---
Patient received sitting by bedside. AAO x 3. No acute distress noted. Call light within reach.
--- NOTE | 2019-06-17 19:33 | Diagnostic Imaging Report ---
Solid-phase gastric emptying study Reason for examination: Abdominal pain The protocol used for this study is based on the Consensus Recommendations for Gastric Scintigraphy by the [employer] and the Society of Nuclear Medicine. Clinical information: The patient is diabetic; blood sugar today is 200 mg/dL. The patient has not had prior gastrointestinal surgery other than cholecystectomy 3 years ago. The patient is not on any medications expected to affect gastric motility. The patient has been fasting for at least 6 hours prior to this exam. Radiopharmaceutical: Tc-99m sulfur colloid 1 mCi Report: The radiopharmaceutical was added to Ensure Enlive 8 ounces. The patient was able to take the liquid meal. Images were obtained of the abdomen in the anterior and posterior projections at 10 minutes post the meal and at 1, 2, 3, and 4 hours. Uptake was determined from the geometric mean of the anterior and posterior counts and the counts were corrected for decay of the radiolabel. The percent gastric retention of the labeled meal at: 1 hour was 82% (normal 30-90%) 2 hours was 52% (normal <60%) 3 hours was 42% (normal <30%) 4 hours was 13% (normal <10%) Impression: Mildly prolonged gastric emptying pattern. Findings are compatible with mild gastroparesis. Signed by: Dr. Mima Pinedo M.D. on 06/17/2019 7:30 PM
[2019-06-17] MEDS: ATORVASTATIN 40 MG TAB PO SCH (21:00)
[2019-06-17] MEDS: TRAZODONE HCL 50 MG TAB PO SCH (21:00)
[2019-06-17] MEDS: IRON SUCROSE 100 MG in SODIUM CHLORIDE 0.9% 100 ML 100 ML IV SCH (21:04)
--- NOTE | 2019-06-17 22:36 | Progress Note ---
DATE: 06/17/2019 Cardiology Progress Note SUBJECTIVE: No complaints. OBJECTIVE: VITAL SIGNS: Temperature 97.8, heart rate 81, blood pressure 165/76, respiratory rate 18, O2 saturation 97%. GENERAL: No acute distress, alert. NECK: No JVD. CHEST: Clear to auscultation. CARDIOVASCULAR: Regular rate and rhythm. Normal S1, S2. ABDOMEN: Soft. Bowel sounds positive. EXTREMITIES: Trace edema. Foot wound covered with dressings. CARDIOVASCULAR MEDICATIONS: Reviewed. Atorvastatin 40 mg at bedtime, nifedipine 60 mg every 12 hours, carvedilol 25 mg every 12 hours, aspirin 81 mg daily, clonidine patch, furosemide 20 mg p.r.n. posttransfusion. STUDIES: Reviewed. Potassium 3.2, bicarbonate 26, creatinine 0.9, glucose 237. White blood cells 18.7, hemoglobin 9.6, platelets 578. AST 16, ALT 23. ASSESSMENT AND PLAN: A 59-year-old woman with severe peripheral arterial disease by arterial Doppler status post 4th right toe amputation abscess drainage as MEGHANN now recovered, anemia, undergoing GI evaluation status post endoscopy and gastric emptying study today. Diabetes mellitus, hypertension, dyslipidemia. RECOMMENDATIONS: Peripheral angiography and possible intervention likely tomorrow a.m. if no additional issues arise. N.p.o. after midnight. Initiate hydration after midnight. Discussed coordinating care with Nephrology. Thank you for the opportunity to participate in the care of this pleasant woman. MD BHAVIK Romero/JONATHAN /[id number]
--- NOTE | 2019-06-17 23:12 | NUR ---
Patient informed about surgical procedure (Peripheral Angiogram with possible intervention) and instructed about NPO status after midnight. Patient verbalized understanding. Patient voluntarily signed " Disclosure and Consent" form.
--- NOTE | 2019-06-17 23:21 | NUR ---
notified about patient's BS level of 378. 12 units of Humalog given. No new orders received.
[2019-06-18] VITALS (13 sets, daily range): BP systolic 117–190; BP diastolic 55–97
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
[2019-06-18] MEDS: AMPICILLIN SOD/SULBACTAM 3GM 100 ML IV SCH ×4 (00:15→18:30)
--- NOTE | 2019-06-18 00:41 | NUR ---
Wound dressing performed per MD's orders. Patient tolerated well.
[2019-06-18] MEDS: METOCLOPRAMIDE HCL 10 MG/2ML VIAL IV SCH ×4 (03:22→21:06)
[2019-06-18 05:23] LABS: BASOPHILS # (AUTO) 0.1 (0.0-0.1); BASOPHILS % 0.3 % (0.0-1.0); EOSINOPHILS # (AUTO) 0.2 (0.0-0.4); EOSINOPHILS % 1.3 % (0.0-6.0); HEMATOCRIT 26.9 % (34.2-44.1); HEMOGLOBIN 8.4 g/dL (12.0-16.0); LYMPHOCYTES # (AUTO) 3.1 (1.0-3.2); MEAN CORPUSCULAR HGB CONC 31.2 g/dL (31-35); MEAN CORPUSCULAR VOLUME 83.3 fL (81-99); MONOCYTES # (AUTO) 1.9 (0.2-0.8); MONOCYTES % 12.3 % (4.4-11.3); NEUTROPHILS % 63.9 % (38.7-80.0); PLATELET COUNT 483 x10e3/uL (140-360); RED BLOOD COUNT 3.23 x10e6/uL (3.6-5.1); RED CELL DISTRIBUTION WIDTH 15.7 % (11.7-14.4)
--- NOTE | 2019-06-18 07:00 | NUR ---
Patient resting comfortably. Walking rounds done. Bed-side report given to oncoming nurse regarding patient's status.
[2019-06-18] MEDS: INSULIN LISPRO 100 UNIT/1 ML 3ML VIAL SQ SCH ×4 (07:30→21:00)
[2019-06-18] MEDS: CARVEDILOL 12.5 MG TAB PO SCH ×2 (08:36→16:38)
[2019-06-18] MEDS: DOCUSATE SODIUM 100 MG CAP PO SCH ×2 (08:36→16:38)
[2019-06-18] MEDS: ASPIRIN 81 MG CHEW TAB PO SCH (08:36)
[2019-06-18] MEDS: NIFEDIPINE CR 30 MG TAB PO SCH ×2 (08:37→21:06)
[2019-06-18] MEDS: PANTOPRAZOLE SODIUM 40 MG SUSPDR.PKT PO SCH ×2 (08:38→16:38)
[2019-06-18] MEDS ORDERED: FENTANYL CITRATE/PF 100MCG/2 ML INJ ONE (09:40)
[2019-06-18] MEDS ORDERED: MIDAZOLAM HCL 2 MG/2 ML VIAL ONE (09:40)
[2019-06-18] MEDS ORDERED: LIDOCAINE HCL 2% LOCAL 20 ML VIAL ONE ×2 (09:40→10:37)
[2019-06-18] MEDS ORDERED: IOPAMIDOL 300MG/ML 100 ML INFUS..BTL IV ONE (09:41)
[2019-06-18] MEDS ORDERED: HEPARIN SOD/SOD CHLORIDE 2,000 ML ONE (09:41)
[2019-06-18] MEDS ORDERED: SODIUM CHLORIDE 0.9% 1000ML 1,000 ML ONE ×2 (09:41→10:44)
--- NOTE | 2019-06-18 09:58 | NUR ---
PATIENTS AT BEDSIDE LEFT TO GO TO ANGIOPLASTY
[2019-06-18] MEDS ORDERED: VERAPAMIL HCL 2.5 MG/ML 2 ML VIAL ONE (10:44)
[2019-06-18] MEDS ORDERED: CLOPIDOGREL BISULFATE 75 MG TAB ONE (11:17)
[2019-06-18] MEDS ORDERED: ASPIRIN 325 MG TAB ONE (11:17)
[2019-06-18] MEDS: MORPHINE SULFATE 2 MG/ML SYR 1ML IV PRN ×3 (11:35→20:45)
[2019-06-18] MEDS ORDERED: SODIUM CHLORIDE 0.9% 1000ML 1,000 ML IV SCH ×2 (11:41)
--- NOTE | 2019-06-18 14:10 | Progress Note ---
DATE: 06/18/2019 Cardiology Progress Note SUBJECTIVE: No complaints. OBJECTIVE: VITAL SIGNS: Temperature 98.2, heart rate 78, respiratory rate 18, blood pressure 144/75, and O2 saturation 95% on 2 L/minute nasal cannula. GENERAL: No acute distress. Alert. NECK: No JVD. CHEST: Clear to auscultation. CARDIOVASCULAR: Regular rate and rhythm. Normal S1 and S2. ABDOMEN: Soft. Bowel sounds positive. EXTREMITIES: No edema. Right foot covered with dressings. CARDIOVASCULAR MEDICATIONS: Reviewed. Atorvastatin 40 mg at bedtime, hydralazine 10 mg q.4 hours p.r.n., clonidine patch, nifedipine 60 mg q.12 hours, aspirin 81 mg daily, and carvedilol 25 mg b.i.d. LABORATORY DATA: White blood cells 15.6, hemoglobin 8.4, and platelets 483. Sodium 137, potassium 3.2, chloride 99, bicarbonate 15, creatinine 0.9, glucose 238, and calcium 8.8. Tele, sinus rhythm. ASSESSMENT AND PLAN: 1. 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 Plantar branches reconstitutes via collaterals from peroneal artery. 2. Hypertension. 3. Status post acute kidney injury. 4. Diabetes mellitus. 5. Suspected gastroparesis, undergoing workup. PLAN: 1. Continue aspirin and Plavix. 2. Continue rest of cardiovascular medications. 3. Appreciate Nephrology expertise with blood pressure optimization. 4. Monitor renal function. I thank, Dr. Mcqueen, for the opportunity to participate in the care of Ms. Gordon. MD BHAVIK Romero/MODL /[id number]
[2019-06-18] MEDS ORDERED: FUROSEMIDE INJ 10 MG/ML 4 ML VIAL IV NR (14:45)
[2019-06-18] MEDS: MINOXIDIL 2.5 MG TAB PO SCH ×2 (14:45→21:06)
--- NOTE | 2019-06-18 17:20 | NUR ---
Pt/family member requested diet education regarding diabetic diet. Nutrition Education Learner(s): pt, family members Barriers: No barriers identified. Cultural/Language Modifications: No cultural/language modifications noted Readiness: Pt eager to learn. Method: explanation/discussion/handout Topics: Carbohydrate exchanges, Carbohydrate counting handouts, Reading the nutrition label Understanding/Compliance: Pt verbalized understanding. All questions have been answered. Signed: Giovanna Talamantes RD, EDUAR
--- NOTE | 2019-06-18 20:00 | NUR ---
Patients blood sugar is 357. MD notified. Received order to cover patient with scheduled humalog insulin and also to give patient a 1 time dose of 10units of Lantus.
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
[2019-06-18] MEDS: TRAZODONE HCL 50 MG TAB PO SCH (21:00)
[2019-06-18] MEDS: ATORVASTATIN 40 MG TAB PO SCH (21:06)
[2019-06-18] MEDS: IRON SUCROSE 100 MG in SODIUM CHLORIDE 0.9% 100 ML 100 ML IV SCH (21:06)
[2019-06-18] MEDS ORDERED: INSULIN GLARGINE 100 UNITS/ML VIAL SQ ONE (22:00)
--- NOTE | 2019-06-18 23:00 | NUR ---
PICC line nurse is on unit trying to unclog picc line. PICC line nurse has managed to unclog one terminal of the picc line. Picc line nurse recommends cathflo being used on both lumens to see if that will unclog both lumens well. Will notify of PICC line nurse's recommendations.
[2019-06-19] VITALS (8 sets, daily range): BP systolic 116–151; BP diastolic 53–70
[2019-06-19] MEDS: AMPICILLIN SOD/SULBACTAM 3GM 100 ML IV SCH ×4 (00:23→17:14)
--- NOTE | 2019-06-19 00:36 | Operative Report ---
DATE OF PROCEDURE: 06/18/2019 SURGEON: Ilya Shipman MD STUDY: Peripheral Angiography And Intervention PROCEDURE INDICATION: Critical limb ischemia with severe hflmv-uzu-yjuc PAD. PROCEDURE PERFORMED: 1. Abdominal aortogram. 2. Selective lower extremity angiography, bilateral. 3. Right anterior tibial CSI atherectomy and ROD HANGER. 4. Right TP trunk to peroneal, CSI atherectomy and ROD HANGER. 5. Catheter placement in the aorta. 6. Third-order catheter placement from left common femoral artery to right femoral artery. 7. Additional third-order catheter placement from left common femoral artery to right anterior tibial artery. 8. Additional third-order catheter placement from left common femoral artery to right peroneal artery. 9. Selective lower extremity angiography, bilateral. 10. A 6-Portuguese Angio-Seal closure to the left common femoral artery. FINDINGS: 1. The renal arteries are patent. Infrarenal aorta and iliac vessels have luminal irregularities. Common femoral arteries, profunda femoris, SFA and popliteal arteries have luminal irregularities. 2. The right anterior tibial has 80% proximal stenosis. The TP trunk has 70% stenosis and gives a peroneal artery with 90% proximal stenosis and moderate calcifications are noted. The right posterior tibial artery is 100% occluded proximal to distal with the plantar arteries for reconstitution via well-developed collaterals from peroneal artery. 3. The left anterior tibial heart artery has 80% and 99% tandem lesions. 4. The left TP trunk has 70% stenosis. The left peroneal artery is not well visualized. The left posterior tibial artery is 100% occluded with collaterals noted to fill the plantar branches. 5. Heparin was used to maintain HCT over 250. A Seeker catheter was positioned at popliteal artery, and further advanced to AT and the peroneal artery. CSI catheter was advanced to the anterior tibial artery and atherectomy was performed to the right anterior tibial was low past and high past with a [employer] [place] CSI atherectomy device. Similarly after balloon inflation, anterior tibial with 3.5 x 100 Ultraverse balloon to 4 atmospheres. 6. Similarly, the right TP trunk and peroneal artery were intervened with CSI atherectomy at low past/speed followed by a 3.0 x 40 Ultraverse balloon inflated to 6 atmospheres. Final angiography reveals OSVALDO-3 flow, less than 10% residual stenosis across the target vessels with no flow-limiting dissections or perforation and reestablishment of linear flow to foot via the right anterior tibial artery all the way to the dorsalis pedis artery and via the TP trunk and peroneal artery to the foot from well-developed collaterals filling the plantar arteries and plantar branches. Recommend at a later date consider stage revascularization to the left lower extremity [id number] vessels. Continue aspirin and Plavix. Ilya Shipman MD AFJackie/MODL /[id number]
[2019-06-19] MEDS: MORPHINE SULFATE 2 MG/ML SYR 1ML IV PRN ×4 (00:47→19:45)
--- NOTE | 2019-06-19 06:40 | NUR ---
received order from to use cathflo on PICC lines.
[2019-06-19 06:54] LABS: ALANINE AMINOTRANSFERASE 12 IU/L (0-55); ALBUMIN 2.3 g/dL (3.5-5.0); ALBUMIN/GLOBULIN RATIO 0.6 (0.8-2.0); ALKALINE PHOSPHATASE 122 IU/L (40-150); BLOOD UREA NITROGEN 12 mg/dL (7-26); BUN/CREATININE RATIO 12 (6-25); CALCIUM 8.2 mg/dL (8.4-10.2); CARBON DIOXIDE 31 mmol/L (22-29); CHLORIDE 98 mmol/L (98-107); CREATININE, SERUM 1.03 mg/dL (0.57-1.11); EST GLOMERULAR FILTRATION RATE > 60 ML/MIN (60-); GLUCOSE 284 mg/dL (74-118); SODIUM 138 mmol/L (136-145)
--- NOTE | 2019-06-19 07:19 | NUR ---
report given to day nurse. patient is resting comfortably in bed. bed is in lowest position and call alonzo is within reach.
[2019-06-19] MEDS ORDERED: ALTEPLASE RECOMBINANT 2 MG/2 ML VIAL IV ONE ×2 (07:30→14:30)
[2019-06-19] MEDS: INSULIN LISPRO 100 UNIT/1 ML 3ML VIAL SQ SCH ×4 (07:30→20:27)
[2019-06-19] MEDS: METOCLOPRAMIDE HCL 10 MG/2ML VIAL IV SCH ×4 (08:57→20:24)
[2019-06-19] MEDS: ASPIRIN 81 MG CHEW TAB PO SCH (08:58)
[2019-06-19] MEDS: ASPIRIN 325 MG TAB PO SCH (08:58)
[2019-06-19] MEDS: CARVEDILOL 12.5 MG TAB PO SCH ×2 (08:59→16:30)
[2019-06-19] MEDS: DOCUSATE SODIUM 100 MG CAP PO SCH ×2 (08:59→16:29)
[2019-06-19] MEDS: MINOXIDIL 2.5 MG TAB PO SCH ×2 (09:00→20:24)
[2019-06-19] MEDS: NIFEDIPINE CR 30 MG TAB PO SCH ×2 (09:00→20:25)
[2019-06-19] MEDS: PANTOPRAZOLE SODIUM 40 MG SUSPDR.PKT PO SCH ×2 (09:00→16:31)
[2019-06-19] MEDS: CLOPIDOGREL BISULFATE 75 MG TAB PO SCH (09:00)
[2019-06-19] MEDS ORDERED: POTASSIUM CHLORIDE 10MEQ EA PO ONE (16:00)
--- NOTE | 2019-06-19 16:54 | Progress Note ---
DATE: 06/19/2019 Cardiology Progress note. SUBJECTIVE: No new complaints. OBJECTIVE: VITAL SIGNS: Temperature 97.5, heart rate 68, blood pressure 117/53, respiratory rate 16, O2 saturation 98%. GENERAL: No acute distress, alert. NECK: No JVD. CHEST: Clear to auscultation. CARDIOVASCULAR: Regular rate and rhythm. Normal S1, S2. ABDOMEN: Soft. Bowel sounds positive. EXTREMITIES: With no edema, right foot covered with dressings. CARDIOVASCULAR MEDICATIONS: Reviewed: 1. Nifedipine. 2. . 3. Aspirin. 4. Atorvastatin. 5. Clonidine. 6. Carvedilol. 7. Hydralazine. 8. Clopidogrel. STUDIES: Reviewed, creatinine 1. Hemoglobin 8.4 and platelets 483. ASSESSMENT AND PLAN: 1. Peripheral arterial disease, status post right AT and TP trunk to peroneal revascularization with excellent results. fyvoe-hmb-rdej vessel disease, outpatient followup, and evaluation for revascularization at a later date can be considered. 2. Creatinine and hemoglobin remained stable. 3. Continue rest of cardiovascular medications. 4. Blood pressure now adequately controlled. Thank you for the opportunity to participate in the care of Ms. Gordon. MD AguirreV/DEQUANL /[id number]
[2019-06-19] MEDS ORDERED: POTASSIUM CHLORIDE 20 MEQ TAB CR PO ONE (17:00)
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
--- NOTE | 2019-06-19 17:39 | Progress Note ---
DATE: 06/19/2019 SUBJECTIVE: Ms. Gordon is feeling better. Her nausea is better. Overall, she is feeling better. PHYSICAL EXAMINATION: GENERAL: She is currently alert, oriented, does not seem to be in acute distress. VITAL SIGNS: Stable, currently afebrile. HEENT: Normocephalic. Does not appear icteric. NECK: Supple. CHEST: Clear bilateral. HEART: S1, S2. No S3, S4, or murmur. ABDOMEN: Soft. Bowel sounds present. No tenderness. EXTREMITIES: No edema. SKIN: There is no rash. IMPRESSION: 1. Sepsis right leg abscess infection getting better with IV antibiotic. 2. Right foot osteomyelitis, status post right toe amputation. 3. Coronary artery disease. 4. Gastroparesis. 5. Hypertension. 6. History of splenectomy. Cultures so far showed enterococcus. White count is coming down, the last one was 15.66. Sodium 138, potassium 3.0. Sepsis, getting better. Continue with the current choice of antibiotic. She is currently on Unasyn. Recheck CBC. Recheck Chem panel. Gastroparesis, better. We will follow with you. Discussed with the patient. Discussed with medical team. MD REGGIE Bangura/JONATHAN /[id number]
--- NOTE | 2019-06-19 18:01 | NUR ---
dressing changed to pt foot, pt tolerated well.
--- NOTE | 2019-06-19 19:58 | NUR ---
Patients blood sugar is 475. MD notified. Received new order for one time dose of 30 units of Lantus. MD also gave order to cover patients with ordered Humalog. Will continue to monitor patient.
[2019-06-19] MEDS ORDERED: INSULIN GLARGINE 100 UNITS/ML VIAL SQ ONE (20:15)
[2019-06-19] MEDS: ATORVASTATIN 40 MG TAB PO SCH (20:24)
[2019-06-19] MEDS: IRON SUCROSE 100 MG in SODIUM CHLORIDE 0.9% 100 ML 100 ML IV SCH (20:24)
[2019-06-19] MEDS: TRAZODONE HCL 50 MG TAB PO SCH (20:24)
--- NOTE | 2019-06-19 23:41 | Progress Note ---
DATE: 06/19/2019 SUBJECTIVE: The patient is seen today and is approximately one week status post I and D with amputation of the right foot, third toe. The patient has a Betadine wet-to-dry dressing on today with minimal drainage. This was removed and the wound evaluated. There was a partial closure of dorsal and plantar with open draining area in the central aspect, where the digit was removed. There is minimal drainage. The foot is warm having undergone vascular intervention by Dr. Boswell yesterday. The patient seems to have tolerated the procedure very well and is anxious for improvement and ultimately discharge to [facility]. The patient was treated today with a sterile re-dress and is otherwise to continue the same care and Dr. Burrell will follow up next week or on an as-needed basis. Thank you very much. JOSEF Medrano/JONATHAN /[id number]
[2019-06-20] VITALS (9 sets, daily range): BP systolic 123–167; BP diastolic 60–79
[2019-06-20] MEDS: AMPICILLIN SOD/SULBACTAM 3GM 100 ML IV SCH ×4 (00:01→17:02)
[2019-06-20] MEDS: MORPHINE SULFATE 2 MG/ML SYR 1ML IV PRN ×4 (00:07→22:49)
--- NOTE | 2019-06-20 06:35 | NUR ---
patient is resting comfortably in bed, bed is in lowest position and call alonzo is within reach.
[2019-06-20] MEDS: DOCUSATE SODIUM 100 MG CAP PO SCH ×2 (09:23→17:03)
[2019-06-20] MEDS: METOCLOPRAMIDE HCL 10 MG/2ML VIAL IV SCH ×4 (09:23→20:59)
[2019-06-20] MEDS: ASPIRIN 325 MG TAB PO SCH (09:23)
[2019-06-20] MEDS: ASPIRIN 81 MG CHEW TAB PO SCH (09:23)
[2019-06-20] MEDS: MINOXIDIL 2.5 MG TAB PO SCH ×2 (09:24→20:59)
[2019-06-20] MEDS: CARVEDILOL 12.5 MG TAB PO SCH ×2 (09:24→17:03)
[2019-06-20] MEDS: CLOPIDOGREL BISULFATE 75 MG TAB PO SCH (09:24)
[2019-06-20] MEDS: PANTOPRAZOLE SODIUM 40 MG SUSPDR.PKT PO SCH ×2 (09:25→17:02)
[2019-06-20] MEDS: NIFEDIPINE CR 30 MG TAB PO SCH ×2 (09:25→21:00)
[2019-06-20] MEDS: INSULIN LISPRO 100 UNIT/1 ML 3ML VIAL SQ SCH ×4 (09:31→21:00)
[2019-06-20] MEDS: PROMETHAZINE 25MG/ NS 50ML (IV) IV PRN ×2 (09:48→21:00)
--- NOTE | 2019-06-20 12:42 | Progress Note ---
DATE: 06/20/2019 Followup Pain Management Progress Note History of multiple issues including back pain, low back pain, and pelvic pain. She came with sepsis. SUBJECTIVE: This patient's pain is better now at this moment. present in the room. Her pain is mostly in the back in the pelvic area, getting much better now. Pain goes off and on. Having multiple issues with pain in the past, chronic pain syndrome, chronic back pain syndrome. PHYSICAL EXAMINATION: GENERAL: In pain, but not in acute distress. VITAL SIGNS: Temperature 98, heart rate 87, blood pressure 153/77, respiratory rate 18, and 97 saturation. Her weight is 181 pounds. HEENT: Normocephalic. NECK: Supple. LUNGS: Air entry bilaterally. HEART: Regular rate and rhythm. ABDOMEN: Soft. EXTREMITIES: Nonfocal. LABORATORY DATA: Lab data was noted. Hemoglobin is 8.4, hematocrit is 26.9. shows low potassium level. ASSESSMENT AND PLAN: The patient with chronic pain syndrome, chronic back pain syndrome, chronic leg pain syndrome, history of hemodialysis in the past and now she is having hemodialysis . We will continue supportive care while she is inpatient. We will manage the pain with medication through IV and by mouth. We will follow her while she is in the hospital MD JANET Mike/JONATHAN /[id number]
--- NOTE | 2019-06-20 16:20 | NUR ---
Visit made by the Spiritual Care Department Pastoral Visitor, Pablo Benson. PV provided pastoral presence, hospitality, and supportive listening. Pastoral Visitor informed pt/family of the scope of [facility] and availability. NAVEEN SCOTT Human Resources Manager Spiritual Care Department O: [phone] Pager: [phone] ([phone] calling from)
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
[2019-06-20] MEDS: INSULIN GLARGINE 100 UNITS/ML VIAL SQ SCH (17:04)
--- NOTE | 2019-06-20 19:05 | NUR ---
bedside rounding complete, report given to oncoming nurse. pt stable condition.
--- NOTE | 2019-06-20 20:17 | NUR ---
received report from day nurse. bedside rounding complete. patient is resting in bed. bed is in lowest position and call alonzo is within reach. will continue to monitor patient.
--- NOTE | 2019-06-20 20:39 | Progress Note ---
DATE: 06/20/2019 Cardiology Progress Note SUBJECTIVE: No chest pain or shortness of breath. No new complaints. OBJECTIVE: VITAL SIGNS: Temperature 96.6, heart rate 75, blood pressure 127/67, respiratory rate 20, O2 saturation 98%. GENERAL: No acute distress. Alert. NECK: No JVD. CHEST: Clear to auscultation. CARDIOVASCULAR: Regular rate and rhythm. Normal S1, S2. No S3. ABDOMEN: Soft. Bowel sounds positive. EXTREMITIES: Right foot covered with dressings. CARDIOVASCULAR MEDICATIONS: Reviewed. 1. Nifedipine 60 mg every 12 hours. 2. Minoxidil 2.5 mg every 12 hours. 3. Aspirin 81 mg daily. 4. Atorvastatin 40 mg at bedtime. 5. Clonidine patch. 6. Furosemide 20 mg p.r.n. posttransfusion. 7. Aspirin 81 mg daily. 8. Carvedilol 25 mg b.i.d. 9. Hydralazine 10 mg q.4 hours. 10. Clopidogrel 75 mg daily. STUDIES: Reviewed. Creatinine 1. Hemoglobin 8.4, white blood cells 15.6, platelets 483. ASSESSMENT AND PLAN: A 59-year-old woman with peripheral arterial disease, status post right TP trunk to peroneal and right anterior tibial revascularization for residual severe disease to the left jkenk-rms-eqak vessels, history of hypertension, diabetes, dyslipidemia, anemia, suspected gastroparesis, and foot infection, status post 4th right toe amputation and abscess drainage. RECOMMENDATIONS: 1. Continue current cardiovascular medications, particularly dual antiplatelet therapy. 2. Outpatient followup. Consider staged intervention to the right lower extremity PAD as needed. 3. Further CV risk optimization as outpatient MD BHAVIK Romero/JONATHAN /[id number] GREY
[2019-06-20] MEDS ORDERED: SODIUM CHLORIDE 0.9% 250ML 250 ML ONE (20:57)
[2019-06-20] MEDS: IRON SUCROSE 100 MG in SODIUM CHLORIDE 0.9% 100 ML 100 ML IV SCH (20:59)
[2019-06-20] MEDS: TRAZODONE HCL 50 MG TAB PO SCH (20:59)
[2019-06-20] MEDS: ATORVASTATIN 40 MG TAB PO SCH (20:59)
[2019-06-21] VITALS (7 sets, daily range): BP systolic 108–152; BP diastolic 56–78
[2019-06-21] MEDS: AMPICILLIN SOD/SULBACTAM 3GM 100 ML IV SCH ×5 (05:15→23:02)
--- NOTE | 2019-06-21 07:11 | NUR ---
report given to day nurse. patient is resting comfortably in bed. bed is in lowest position and call alonzo is within reach.
[2019-06-21] MEDS: METOCLOPRAMIDE HCL 10 MG/2ML VIAL IV SCH ×4 (07:30→20:35)
[2019-06-21] MEDS: INSULIN LISPRO 100 UNIT/1 ML 3ML VIAL SQ SCH ×4 (07:30→20:35)
[2019-06-21] MEDS: INSULIN GLARGINE 100 UNITS/ML VIAL SQ SCH ×2 (07:30→16:30)
--- NOTE | 2019-06-21 07:50 | NUR ---
paged and notified blood sugar 450 to jonnathan box car loader got new orders
[2019-06-21] MEDS ORDERED: INSULIN LISPRO 100 UNIT/1 ML 3ML VIAL SQ ONE (08:30)
[2019-06-21] MEDS: MORPHINE SULFATE 2 MG/ML SYR 1ML IV PRN ×3 (08:52→20:35)
[2019-06-21] MEDS: MINOXIDIL 2.5 MG TAB PO SCH ×2 (09:00→21:00)
[2019-06-21] MEDS: NIFEDIPINE CR 30 MG TAB PO SCH ×2 (09:00→21:00)
[2019-06-21] MEDS: PIOGLITAZONE HCL 15 MG TAB PO SCH (09:00)
[2019-06-21] MEDS: ASPIRIN 325 MG TAB PO SCH (09:00)
[2019-06-21] MEDS: CARVEDILOL 12.5 MG TAB PO SCH ×2 (09:00→17:00)
[2019-06-21] MEDS: PANTOPRAZOLE SODIUM 40 MG SUSPDR.PKT PO SCH ×2 (09:00→17:00)
[2019-06-21] MEDS: CLOPIDOGREL BISULFATE 75 MG TAB PO SCH (09:00)
[2019-06-21] MEDS: DOCUSATE SODIUM 100 MG CAP PO SCH ×2 (09:00→17:00)
--- NOTE | 2019-06-21 10:32 | Progress Note ---
DATE: 06/21/2019 Cardiology Progress Note SUBJECTIVE: No complaints. OBJECTIVE: VITAL SIGNS: Temperature 97.1, heart rate 89, blood pressure 152/78, respiratory rate 20, and O2 saturation 96%. GENERAL: No acute distress. Alert. NECK: No JVD. CHEST: Clear to auscultation. CARDIOVASCULAR: Regular rate and rhythm. Normal S1 and S2. No S3. No S4. ABDOMEN: Soft. Bowel sounds positive. EXTREMITIES: No edema. Right foot covered with dressing. CARDIOVASCULAR MEDICATIONS: Reviewed. 1. Nifedipine 60 mg every 12 hours. 2. Minoxidil 2.5 mg every 12 hours. 3. Aspirin 81 mg daily. 4. Atorvastatin 40 mg at bedtime. 5. Aspirin 81 mg daily. 6. Carvedilol 25 mg b.i.d. 7. Clopidogrel 75 mg daily. STUDIES: Reviewed. Creatinine 1.03. White blood cells 15.6, hemoglobin 8.4, and platelets 483. AST 11 and ALT 12. ASSESSMENT AND PLAN: 1. A 59-year-old woman presented with critical limb ischemia, status post revascularization of kgeuu-ang-yfez vessels right lower extremity with residual left lower extremity itdee-atx-eaem vessel disease. 2. Hypertension, improved. 3. Dyslipidemia. 4. Diabetes mellitus. 5. Right fourth toe amputation, abscess drainage. 6. Recommend continue current cardiovascular medications. 7. Anemia, status post iron infusion. 8. Continue wound care. 9. Staged intervention to left lower extremity at a later date. 10. Acute kidney injury has resolved. MD BHAVIK Romero/MODFernandez /[id number]
--- NOTE | 2019-06-21 11:41 | NUR ---
PT CHOSE [facility], FILED IN CHART AND WILL COMPLETE PASRR RTF AND FAX CLINICALS TO FACILITY
[2019-06-21 12:49] LABS: BASOPHILS # (AUTO) 0.1 (0.0-0.1); BASOPHILS % 0.4 % (0.0-1.0); EOSINOPHILS # (AUTO) 0.3 (0.0-0.4); EOSINOPHILS % 1.7 % (0.0-6.0); HEMATOCRIT 24.7 % (34.2-44.1); LYMPHOCYTES # (AUTO) 3.2 (1.0-3.2); LYMPHOCYTES % 19.5 % (18.0-39.1); MEAN CORPUSCULAR HGB CONC 32.4 g/dL (31-35); MEAN CORPUSCULAR VOLUME 83.4 fL (81-99); MONOCYTES % 11.9 % (4.4-11.3); NEUTROPHILS # (AUTO) 10.8 (2.1-6.9); NEUTROPHILS % 65.5 % (38.7-80.0); PLATELET COUNT 424 x10e3/uL (140-360); RED BLOOD COUNT 2.96 x10e6/uL (3.6-5.1); RED CELL DISTRIBUTION WIDTH 16.4 % (11.7-14.4)
[2019-06-21 13:04] LABS: ANION GAP 15.7 mmol/L (8-16); BLOOD UREA NITROGEN 13 mg/dL (7-26); BUN/CREATININE RATIO 13 (6-25); CALCIUM 8.2 mg/dL (8.4-10.2); CARBON DIOXIDE 24 mmol/L (22-29); CHLORIDE 104 mmol/L (98-107); CREATININE, SERUM 0.99 mg/dL (0.57-1.11); EST GLOMERULAR FILTRATION RATE > 60 ML/MIN (60-); GLUCOSE 79 mg/dL (74-118); POTASSIUM 3.7 mmol/L (3.5-5.1); SODIUM 140 mmol/L (136-145)
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
--- NOTE | 2019-06-21 13:32 | Diagnostic Imaging Report ---
EXAMINATION: CHEST SINGLE (PORTABLE) INDICATION: Pulmonary edema COMPARISON: Chest radiograph 06/14/2019 FINDINGS: LINES/TUBES:Right PICC line terminates in the SVC. EKG leads overlie the chest. LUNGS:The lungs are moderately inflated. There is perihilar fullness and indistinctness of the pulmonary vasculature. Bibasilar patchy opacities. PLEURA:Small right pleural effusion. No pneumothorax. MEDIASTINUM:Cardiomediastinal silhouette is stably enlarged. BONES/SOFT TISSUES:No acute osseous injury. ABDOMEN:No free air under the diaphragm. IMPRESSION: Cardiomegaly and pulmonary edema. Small right pleural effusion. Bibasilar patchy opacities right greater than left, likely subsegmental atelectasis. Signed by: Demond Almaguer MD on 06/21/2019 1:29 PM
--- NOTE | 2019-06-21 15:21 | NUR ---
EDUCATED ABOUT IMM, SIGNED, FILED IN CHART, WITH COPY LEFT WITH FAMILY AT BEDSIDE.
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
--- NOTE | 2019-06-21 18:49 | NUR ---
PT RESTING ON BED BED SIDE REPORT GIVEN TO ONCOMING NURSE
[2019-06-21] MEDS: IRON SUCROSE 100 MG in SODIUM CHLORIDE 0.9% 100 ML 100 ML IV SCH (20:35)
[2019-06-21] MEDS: TRAZODONE HCL 50 MG TAB PO SCH (21:00)
[2019-06-21] MEDS: SUCRALFATE 1 GM TAB PO SCH (21:45)
[2019-06-21] MEDS: ATORVASTATIN 40 MG TAB PO SCH (21:45)
--- NOTE | 2019-06-21 22:00 | NUR ---
PATIENT IN STABLE CONDITION, NO SIGNS OF RESPIRATORY DISTRESS NOTED. IS AT BEDSIDE AND PATIENT VOICES PAIN AT A LEVEL OF 10, AND WAS MEDICATED ORDERED. DRESSING CHANGE WAS DONE AND IS DRY AND INTACT, IODOFORM STRIPS INTACT. IV ANTIBIOTICS ARE RUNNING AT ORDERED RATE. BED IS IN LOWEST POSITION, BOTH SIDE RAILS ARE UP, CALL LIGHT WITHIN EASY REACH, WILL CONTINUE TO MONITOR.
[2019-06-22] VITALS (9 sets, daily range): BP systolic 122–146; BP diastolic 58–72
--- NOTE | 2019-06-22 00:10 | NUR ---
PATIENT VOICES PAIN MEDICATION DOES NOT LAST LONG AND IS IN UNBEARABLE PAIN. CALLED DR. ROBBINS AND HE ORDERED TO CHANGE DOSE OF MORPHINE TO 4MG. WILL ADMINISTER AND CHECK ON PATIENT'S PAIN LEVEL.
[2019-06-22] MEDS: MORPHINE SULFATE INJ 4 MG/ML INJ 1ML IV PRN ×6 (01:03→23:41)
[2019-06-22] MEDS ORDERED: MORPHINE SULFATE 2 MG/ML SYR 1ML ONE (01:03)
[2019-06-22] MEDS: AMPICILLIN SOD/SULBACTAM 3GM 100 ML IV SCH ×4 (05:28→23:35)
--- NOTE | 2019-06-22 07:00 | NUR ---
RCD PT AT BED PT IS ALERT AND ORIENTED PT RESTING ON BED NO SIGNS OF ANY DISTRESS NOTED IV PATENT BY SALINE FLUSH BED LOW AND LOCKED CALL LIGHT IN REACH
[2019-06-22] MEDS: METOCLOPRAMIDE HCL 10 MG/2ML VIAL IV SCH ×4 (07:30→20:50)
[2019-06-22] MEDS: INSULIN GLARGINE 100 UNITS/ML VIAL SQ SCH ×2 (07:30→16:30)
[2019-06-22] MEDS: SUCRALFATE 1 GM TAB PO SCH ×4 (07:30→20:50)
[2019-06-22] MEDS: INSULIN LISPRO 100 UNIT/1 ML 3ML VIAL SQ SCH ×4 (07:30→19:46)
--- NOTE | 2019-06-22 08:00 | NUR ---
DRESSING CHANGED ON RT FOOT
[2019-06-22] MEDS: MINOXIDIL 2.5 MG TAB PO SCH ×2 (09:00→20:51)
[2019-06-22] MEDS: NIFEDIPINE CR 30 MG TAB PO SCH ×2 (09:00→20:51)
[2019-06-22] MEDS: ASPIRIN 325 MG TAB PO SCH (09:00)
[2019-06-22] MEDS: PIOGLITAZONE HCL 15 MG TAB PO SCH (09:00)
[2019-06-22] MEDS: CARVEDILOL 12.5 MG TAB PO SCH ×2 (09:00→16:54)
[2019-06-22] MEDS: DOCUSATE SODIUM 100 MG CAP PO SCH ×2 (09:00→16:54)
[2019-06-22] MEDS: CLOPIDOGREL BISULFATE 75 MG TAB PO SCH (09:00)
[2019-06-22] MEDS: PANTOPRAZOLE SODIUM 40 MG SUSPDR.PKT PO SCH ×2 (09:00→16:55)
--- NOTE | 2019-06-22 10:07 | Progress Note ---
DATE: 06/22/2019 TIME: 7 a.m. SUBJECTIVE: The patient at this point in time, currently denies any nausea, vomiting, fever, chills, thigh pain, chest pain, calf pain, or shortness of breath. The patient is doing quite well in regard to overall condition. She is able to tolerate fluids as well as diet at this point in time. OBJECTIVE: GENERAL: The patient is alert, awake, and oriented x3, currently not in acute distress. VITAL SIGNS: Stable. Vascularity is intact to the right lower extremity. SKIN: Temperature from proximal and distal right lower extremity is warm to warm. Packing was removed, which reveals granulation tissue, mild fibrinous slough within the wound, however, there is no erythema, no edema, or infection at this point in time. ASSESSMENT: 1. Status post incision and drainage of the right foot with partial fourth ray amputation. 2. Pulmonary edema. 3. Diabetes mellitus uncontrolled. 4. Peripheral vascular disease, status post angioplasty of the right lower extremity. RECOMMENDATIONS: 1. At this point in time, the patient will be scheduled for delayed primary closure of the right foot wound prior to transfer to LTAC facility. 2. Okay to transfer following the surgery. At this point in time, risks and complications were discussed. Alternative forms of treatment were discussed. The patient is wished to proceed with delayed closure, will be scheduled for tomorrow. Osei Burrell DPM MM/JONATHAN /[id number]
[2019-06-22] MEDS: PROMETHAZINE 25MG/ NS 50ML (IV) IV PRN (11:05)
[2019-06-22] MEDS: FUROSEMIDE INJ 10 MG/ML 4 ML VIAL IV NR ×2 (11:16→11:28)
--- NOTE | 2019-06-22 11:53 | Progress Note ---
DATE: 06/22/2019 Cardiology Progress Note SUBJECTIVE: Denies chest pain or shortness of breath. OBJECTIVE: VITAL SIGNS: Temperature 98.2, heart rate 86, respiratory rate 20, blood pressure 140/71, respiratory rate 20, and O2 saturation 95% on 2 L/minute nasal cannula. GENERAL: No acute distress. Alert. NECK: No JVD. CHEST: Clear to auscultation. CARDIOVASCULAR: Regular rate and rhythm. Normal S1 and S2. No S3. No S4. No murmurs or rubs. ABDOMEN: Soft. Bowel sounds positive. EXTREMITIES: No edema. Right foot wound covered with dressings. CARDIOVASCULAR MEDICATIONS: Reviewed. Minoxidil 2.5 mg every 12 hours, clopidogrel 75 mg daily, aspirin 81 mg daily, nifedipine 60 mg every 12 hours, carvedilol 25 mg b.i.d., atorvastatin 40 mg at bedtime, hydralazine 10 mg q.4 hours p.r.n., clonidine patch, furosemide p.r.n. 20 mg posttransfusion. STUDIES: Reviewed. White blood cells 16.4, hemoglobin 8, and platelets 424. Sodium 140, potassium 3.7, chloride 104, bicarbonate 25, BUN 13, creatinine 0.9, glucose 79, and calcium 8.2. Telemetry in sinus rhythm. ASSESSMENT AND PLAN: 1. Peripheral arterial disease, status post I and D of right foot with partial 4th ray amputation. Undergoing care by Podiatry. 2. Hypertension, now with improved control. 3. Diabetes mellitus and dyslipidemia. 4. Anemia. 5. Wound care. 6. Acute kidney injury, resolved. RECOMMENDATIONS: 1. Staged intervention to left lower extremity advised at a later date. 2. Continue current cardiovascular medications. 3. Continue wound care. 4. Antiplatelet therapy with aspirin and Plavix. MD BHAVIK Romero/JONATHAN /[id number]
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
--- NOTE | 2019-06-22 14:43 | NUR ---
FAXED PT NOTES TO [facility] [phone]
[2019-06-22] MEDS: CLONIDINE HCL 0.3MG/24 HR PATCH TOP SCH (16:00)
--- NOTE | 2019-06-22 18:41 | NUR ---
PT RESTING ON BED BED SIDE REPORT GIVEN TO ONCOMING NURSE
[2019-06-22] MEDS: IRON SUCROSE 100 MG in SODIUM CHLORIDE 0.9% 100 ML 100 ML IV SCH (19:41)
--- NOTE | 2019-06-22 20:45 | NUR ---
PATIENT IN STABLE CONDITION, NO SIGNS OF RESPIRATORY DISTRESS NOTED. IS AT BEDSIDE AND PATIENT VOICES PAIN AT A LEVEL OF 9, AND WAS MEDICATED ORDERED. DRESSING IS DRY AND INTACT, NO DRAINAGE NOTED. IV IRON IS RUNNING AT ORDERED RATE. BED IS IN LOWEST POSITION, BOTH SIDE RAILS ARE UP, CALL LIGHT WITHIN EASY REACH, WILL CONTINUE TO MONITOR.
[2019-06-22] MEDS: TRAZODONE HCL 50 MG TAB PO SCH (20:50)
[2019-06-22] MEDS: ATORVASTATIN 40 MG TAB PO SCH (20:50)
[2019-06-23] VITALS (10 sets, daily range): BP systolic 122–155; BP diastolic 66–73
[2019-06-23] MEDS: MORPHINE SULFATE INJ 4 MG/ML INJ 1ML IV PRN ×4 (03:56→20:35)
[2019-06-23] MEDS: AMPICILLIN SOD/SULBACTAM 3GM 100 ML IV SCH (05:35)
[2019-06-23 05:41] LABS: BASOPHILS # (AUTO) 0.1 (0.0-0.1); BASOPHILS % 0.4 % (0.0-1.0); EOSINOPHILS # (AUTO) 0.3 (0.0-0.4); HEMATOCRIT 23.9 % (34.2-44.1); HEMOGLOBIN 7.4 g/dL (12.0-16.0); LYMPHOCYTES % 21.5 % (18.0-39.1); MEAN CORPUSCULAR HEMOGLOBIN 26.4 pg (28-32); MEAN CORPUSCULAR VOLUME 85.4 fL (81-99); MONOCYTES # (AUTO) 1.6 (0.2-0.8); MONOCYTES % 11.4 % (4.4-11.3); NEUTROPHILS # (AUTO) 8.9 (2.1-6.9); NEUTROPHILS % 64.1 % (38.7-80.0); PLATELET COUNT 422 x10e3/uL (140-360); RED CELL DISTRIBUTION WIDTH 16.7 % (11.7-14.4)
[2019-06-23 06:00] LABS: ALBUMIN 2.2 g/dL (3.5-5.0); ALBUMIN/GLOBULIN RATIO 0.6 (0.8-2.0); ANION GAP 12.8 mmol/L (8-16); CALCIUM 8.1 mg/dL (8.4-10.2); CREATININE, SERUM 1.47 mg/dL (0.57-1.11); POTASSIUM 3.8 mmol/L (3.5-5.1)
[2019-06-23] MEDS ORDERED: BACITRACIN 50,000 UNIT VIAL ONE (06:10)
--- NOTE | 2019-06-23 06:42 | NUR ---
PATIENT HAS LEFT FOR PROCEDURE.
[2019-06-23] MEDS: INSULIN LISPRO 100 UNIT/1 ML 3ML VIAL SQ SCH ×4 (07:30→20:37)
[2019-06-23 07:59] LABS: EOSINOPHILS % (MANUAL) 2 % (0-7); LYMPHOCYTES % (MANUAL) 17 % (19-48); MONOCYTES % (MANUAL) 13 % (3.4-9.0); NEUTROPHILS % (MANUAL) 68 % (40-74)
[2019-06-23 08:00] LABS: PLATELET ESTIMATE ADEQUATE; PLATELET MORPHOLOGY COMMENT NORMAL; RBC MORPHOLOGY COMMENT NORMAL
--- NOTE | 2019-06-23 08:25 | NUR ---
Recvd patient back from procedure, Alert with no distress, dressing intact on rt foot on pillow, keep monitoring, call light in reach
--- NOTE | 2019-06-23 08:40 | NUR ---
MESSAGED FACILITY TO SEE IF HAVE APPROVAL, STILL PENDING.
[2019-06-23] MEDS: METOCLOPRAMIDE HCL 10 MG/2ML VIAL IV SCH ×4 (09:14→20:36)
[2019-06-23] MEDS: SUCRALFATE 1 GM TAB PO SCH ×4 (09:14→20:36)
[2019-06-23] MEDS: ASPIRIN 325 MG TAB PO SCH (09:15)
[2019-06-23] MEDS: LINEZOLID 600 MG TAB PO SCH ×2 (09:15→17:31)
[2019-06-23] MEDS: DOCUSATE SODIUM 100 MG CAP PO SCH ×2 (09:15→17:31)
[2019-06-23] MEDS: CLOPIDOGREL BISULFATE 75 MG TAB PO SCH (09:15)
[2019-06-23] MEDS: PIOGLITAZONE HCL 15 MG TAB PO SCH (09:15)
[2019-06-23] MEDS: CARVEDILOL 12.5 MG TAB PO SCH ×2 (09:15→17:31)
[2019-06-23] MEDS: PANTOPRAZOLE SODIUM 40 MG SUSPDR.PKT PO SCH ×2 (09:15→17:31)
[2019-06-23] MEDS: MINOXIDIL 2.5 MG TAB PO SCH (09:15)
[2019-06-23] MEDS: NIFEDIPINE CR 30 MG TAB PO SCH ×2 (09:15→21:56)
[2019-06-23] MEDS: INSULIN GLARGINE 100 UNITS/ML VIAL SQ SCH ×2 (09:20→16:45)
--- NOTE | 2019-06-23 10:56 | NUR ---
Rt Foot surgical dressing was saturating little bit blood, Reinforced dressing with gauze and yuval bandage, elevated on Pillow, patient and her daughter were concerned about this, paged Dr Burrell
--- NOTE | 2019-06-23 10:58 | Progress Note ---
DATE: 06/23/2019 Cardiology Progress Note SUBJECTIVE: No complaints. OBJECTIVE: VITAL SIGNS: Temperature 98.6, heart rate 80, blood pressure 122/68, respiratory rate 19, O2 saturation 92%. GENERAL: No acute distress, alert. NECK: No JVD. CHEST: Clear to auscultation. CARDIOVASCULAR: Regular rate and rhythm. Normal S1, S2. ABDOMEN: Soft. Bowel sounds positive. EXTREMITIES: No edema. Right foot covered with dressings. CARDIOVASCULAR MEDICATIONS: Reviewed. Clopidogrel 75 mg daily, atorvastatin 40 mg at bedtime, furosemide 20 mg p.r.n. posttransfusion, nifedipine 60 mg every 12 hours, and minoxidil 2.5 mg every 12 hours, carvedilol 25 mg b.i.d., clonidine patch, aspirin 81 mg daily LABORATORY DATA: Studies reviewed. Creatinine 1.4, hemoglobin 7.4. ASSESSMENT: 1. Peripheral arterial disease, status post revascularization, right lower extremity. TP trunk peroneal and anterior tibial artery status post abscess incision and drainage, partial toe amputation now, status post revision closure. 2. Diabetes mellitus. 3. Hypertension. 4. Dyslipidemia. 5. Anemia. PLAN: 1. Recommend continue current cardiovascular medication. 2. Outpatient followup advised upon discharge in 4 weeks. Has residual left lower extremity [id number] vessel severe disease. MD BHAVIK Romero/JONATHAN /[id number]
--- NOTE | 2019-06-23 11:28 | NUR ---
Recv call from Dr Burrell. Per Dr BURRELL Reinforce dressing with 4x4 with yuval wrap and elevate to heart level, Reinforced it explained to patient and to family, Also the PRBC Blood order he put in chart he said make sure with primary before give it.
--- NOTE | 2019-06-23 15:15 | NUR ---
[facility] FACILITY DISCHARGE INFORMATION PATIENT HAS BEEN ACCEPTED TO: NAME: AMANDA WYMAN ADDRESS:[address] [facility] MD:Kanu JONES ROOM: 48B NURSE CALL REPORT TO: IMM SIGNED AND OBTAINED (if applicable): YES THE FOLLOWING DOCUMENTS MUST ACCOMPANY PATIENT FOR TRANSFER: COPIED CHART: PACKET
--- NOTE | 2019-06-23 15:20 | Operative Report ---
DATE OF PROCEDURE: 06/23/2019 SURGEON: Osei Burrell DPM PREOPERATIVE DIAGNOSES: 1. Open wound, right lower extremity. 2. Osteomyelitis, right fourth metatarsal. POSTOPERATIVE DIAGNOSES: 1. Open wound, right lower extremity. 2. Osteomyelitis, right fourth metatarsal. PROCEDURES: 1. Incision and drainage of wound, right foot. 2. Debridement down to bone, right foot. 3. Delayed primary closure, right foot wound. ANESTHESIA: General anesthesia. HEMOSTASIS: Ankle tourniquet at 250 mmHg. ESTIMATED BLOOD LOSS: Minimal. MATERIALS: 2-0 Prolene. INJECTABLES: None. PROCEDURE IN DETAIL: The patient was brought to the operating room and placed on the operating table in the supine position, following induction of general anesthesia, an ankle tourniquet was placed about the patient's right ankle and appropriately padded. The right foot and ankle were scrubbed, prepped and draped in normal sterile fashion. It was elevated for exsanguination and the tourniquet was inflated at approximately 250 mmHg. At this point in time, the foot was irrigated with approximately 2 L of Bacitracin antibiotic solution with pulse lavage system. Along the inferior margins on plantar aspect of the right foot, there was still a small amount of purulence measuring approximately 2 cm in length within the central aspect of this wound. All this necrotic tissue and purulence was surgically excised and removed from the operative field. Additionally, dorsal aspect of the foot skin margins were reviewed. Debridement was performed using a sharp curettage technique utilizing a #15 blade. It was carried down to the level of the fourth metatarsal. The distal aspect of the fourth metatarsal appeared to be intact, hard, and clinically noninfected. The wound was then thoroughly irrigated with the remainder of the 3 L of bacitracin antibiotic solution. The proximal and distal margins were reapproximated using 2-0 Vicryl in a simple and horizontal mattress fashion dorsally, distally, as well as plantarly where there were 2 small areas that were packed with quarter-inch Iodoform packing. Non-adherent dressing was placed to the area followed by an Negro compression bandage. Tourniquet was deflated. Prompt response to the digits was noted. Subpapillary venous filling time was approximately 5 seconds of the remaining toes in the right foot. The patient tolerated the procedure and anesthesia well. The patient was transferred from the OR to PACU with vital signs and vascularity intact to the right lower extremity. will be reinstituted at the hospital. Osei Burrell DPM MM/JONATHAN /[id number]
--- NOTE | 2019-06-23 17:23 | NUR ---
SPOKE WITH AND PT ABOUT PLACEMENT OPTIONS, AFTER GOING OVER THE ONES IN NETWORK STATES THEY WILL STAY WITH THE ONE CHOSEN TO BEGIN WITH. SPOKE WITH NURSE AND TRACK LEADER TO VERIFY PT WILL BE DISCHARGING TOMORROW TO FACILITY.
--- NOTE | 2019-06-23 17:55 | NUR ---
Rt foot dressing intact no bleeding, rt foot elevated on pillows above heart level
[2019-06-23] MEDS ORDERED: PROPOFOL IV EMULSION 10 MG/ML 20 ML VIAL ONE (18:06)
[2019-06-23] MEDS ORDERED: ONDANSETRON HCL INJ 2MG/ML 2ML 2 MG/ML VIAL ONE (18:06)
[2019-06-23] MEDS ORDERED: SEVOFLURANE INHAL SOLN 250 ML PEN BTL ONE (18:06)
[2019-06-23] MEDS ORDERED: LIDOCAINE HCL 2% LOCAL INJ 5 ML SDV VIAL INJ ONE (18:06)
[2019-06-23] MEDS ORDERED: EPHEDRINE SULFATE INJ 50 MG/ML VIAL ONE (18:06)
[2019-06-23] MEDS ORDERED: FENTANYL CITRATE/PF 100MCG/2 ML INJ ONE (18:14)
[2019-06-23] MEDS ORDERED: MIDAZOLAM HCL 2 MG/2 ML VIAL ONE (18:14)
--- NOTE | 2019-06-23 19:30 | Progress Note ---
DATE: 06/23/2019 CHIEF COMPLAINT: Generalized weakness, fever with intractable nausea and vomiting. SUBJECTIVE: The patient is status post closure of right toe amputation. Has had bleeding from the surgical site and reinforced with more dressing. Denies any nausea, vomiting, fever, chills, chest pain, or shortness of breath. Has been at bedside, discussed about a jail facility placement. PHYSICAL EXAMINATION: VITAL SIGNS: Temperature 98.5, pulse is 90, respirations 20, blood pressure 143/67, pulse ox is 92% on room air. GENERAL: No acute distress. HEENT: Normocephalic, atraumatic. NECK: Supple. CARDIOVASCULAR: Regular rate and rhythm. LUNGS: Decreased breath sounds. ABDOMEN: Soft and nontender. NEUROLOGIC: Alert, awake, and oriented x3. MUSCULOSKELETAL: Moves all extremities. SKIN: Dry. Right toe status post amputation and wound closure done today. Bleeding noted at the surgical site. PSYCH: Calm. LABORATORY DATA: WBC 13.88, hemoglobin 7.4, hematocrit is 23.9, and platelet is 422. Sodium is 139, potassium 3.8, CO2 27, BUN is 16, creatinine 1.47, estimated GFR is 44, blood sugar is 162. IMPRESSION: 1. Sepsis due to right lower extremity osteomyelitis. Unasyn changed to Zyvox. Blood cultures negative. Urine culture positive for enterococcus faecalis. Podiatry an ID on the case. 2. Right foot osteomyelitis. Status post 4th toe amputation per Podiatry. Continue Zyvox per ID. Status post wound closure today. 3. History of coronary artery disease. Resume home medication. 4. Accelerated hypertension. Continue current medication, hydralazine as needed, minoxidil discontinued. Dyspnea due to pleural effusion and pulmonary edema. Chest x-ray shows pulmonary edema and bilateral opacities likely atelectasis. We will continue with DuoNeb and IS use. 5. Acute kidney injury. We will give IV fluid hydration. Nephrology on the case. 6. Intractable nausea and vomiting. Status post EGD, which showed gastritis. GI on the case. Now tolerating diet. 7. Diabetes type 2. Continue current sliding scale insulin and Lantus b.i.d. 30 units. 8. History of splenectomy. 9. Anemia of chronic disease and iron deficiency anemia. Hemoglobin is 7.4 today. We will continue to monitor closely. 10. Peripheral artery disease. Status post revascularization per Dr. Boswell. We will continue on Plavix. 11. Chronic pain. Pain management on the case. 12. Deep vein thrombosis prophylaxis. No chemical anticoagulation due to anemia. PLAN: Continue current treatment, wound dressings, IV antibiotics. Anticipate [facility] to jail facility for wound care and antibiotics. Dictated by JUANIS Thakkar Davie Mcqueen MD MY/MODL /[id number]
--- NOTE | 2019-06-23 19:30 | NUR ---
Patient received lying in bed. at bedside. AAO x 3. Patient had no complaints of pain. Respirations even and non-labored . Dressing to right foot clean dry and intact with no drainage. Fall precautions implemented. Patient instructed to call for assistance when needed. Call light within reach.
[2019-06-23] MEDS: IRON SUCROSE 100 MG in SODIUM CHLORIDE 0.9% 100 ML 100 ML IV SCH (20:35)
[2019-06-23] MEDS: ATORVASTATIN 40 MG TAB PO SCH (20:36)
[2019-06-23] MEDS: TRAZODONE HCL 50 MG TAB PO SCH (20:38)
[2019-06-23] MEDS: ACETAMINOPHEN 325 MG TAB PO PRN (21:55)
[2019-06-24] VITALS (8 sets, daily range): BP systolic 117–157; BP diastolic 58–75
[2019-06-24] MEDS: MORPHINE SULFATE INJ 4 MG/ML INJ 1ML IV PRN ×5 (01:04→23:15)
[2019-06-24 05:57] LABS: BASOPHILS # (AUTO) 0.1 (0.0-0.1); BASOPHILS % 0.3 % (0.0-1.0); EOSINOPHILS # (AUTO) 0.2 (0.0-0.4); EOSINOPHILS % 1.1 % (0.0-6.0); LYMPHOCYTES % 16.4 % (18.0-39.1); MEAN CORPUSCULAR HEMOGLOBIN 26.9 pg (28-32); MEAN CORPUSCULAR HGB CONC 31.9 g/dL (31-35); MEAN CORPUSCULAR VOLUME 84.3 fL (81-99); MONOCYTES # (AUTO) 2.2 (0.2-0.8); MONOCYTES % 11.8 % (4.4-11.3); NEUTROPHILS # (AUTO) 12.9 (2.1-6.9); NEUTROPHILS % 69.8 % (38.7-80.0); PLATELET COUNT 409 x10e3/uL (140-360); RED BLOOD COUNT 2.68 x10e6/uL (3.6-5.1); RED CELL DISTRIBUTION WIDTH 16.6 % (11.7-14.4)
--- NOTE | 2019-06-24 06:05 | NUR ---
Dr. Rica Mcqueen notified of critical HGB value of 7.2 and HCT value of 22.6. No new orders received.
[2019-06-24 06:13] LABS: HEMATOCRIT 22.6 % (34.2-44.1)
[2019-06-24 06:14] LABS: HEMOGLOBIN 7.2 g/dL (12.0-16.0)
[2019-06-24 06:32] LABS: ANION GAP 13.2 mmol/L (8-16); CREATININE, SERUM 1.34 mg/dL (0.57-1.11); POTASSIUM 4.2 mmol/L (3.5-5.1)
--- NOTE | 2019-06-24 07:16 | NUR ---
Patient resting comfortably. Walking rounds done. Bed-side report given to oncoming nurse regarding patient's status.
[2019-06-24] MEDS: INSULIN LISPRO 100 UNIT/1 ML 3ML VIAL SQ SCH ×4 (07:30→21:00)
[2019-06-24] MEDS: SUCRALFATE 1 GM TAB PO SCH ×3 (07:30→21:35)
[2019-06-24] MEDS: INSULIN GLARGINE 100 UNITS/ML VIAL SQ SCH ×2 (07:30→16:30)
[2019-06-24] MEDS: METOCLOPRAMIDE HCL 10 MG/2ML VIAL IV SCH ×3 (07:30→21:35)
[2019-06-24] MEDS: ASPIRIN 325 MG TAB PO SCH (08:20)
[2019-06-24] MEDS: CLOPIDOGREL BISULFATE 75 MG TAB PO SCH (08:20)
[2019-06-24] MEDS: NIFEDIPINE CR 30 MG TAB PO SCH ×2 (08:20→21:35)
[2019-06-24] MEDS: DOCUSATE SODIUM 100 MG CAP PO SCH ×2 (09:00→16:39)
--- NOTE | 2019-06-24 14:45 | Progress Note ---
DATE: 06/24/2019 Cardiology Progress Note SUBJECTIVE: No complaints. On telemetry, however, noted to have episodes of Mobitz type II second-degree AV block. OBJECTIVE: VITAL SIGNS: Temperature 96.5, heart rate 81, blood pressure 132/60, respiratory rate 20, and O2 saturation 93%. GENERAL: No acute distress. Alert. NECK: No JVD. CHEST: Clear to auscultation. CARDIOVASCULAR: Regular rate and rhythm. Normal S1 and S2. ABDOMEN: Soft. Bowel sounds positive. EXTREMITIES: No edema. Right foot wound covered with dressings. CARDIOVASCULAR MEDICATIONS: Reviewed. Hydralazine 10 mg q.4 hours, clopidogrel 75 mg daily, atorvastatin 40 mg at bedtime, nifedipine 60 mg every 12 hours, carvedilol 25 mg b.i.d., clonidine patch, and aspirin 81 mg daily. STUDIES: Reviewed. Creatinine 1.3. Hemoglobin 7.2 and platelets 402. ASSESSMENT AND PLAN: 1. A 59-year-old woman noted to have episodes of second-degree AV block Mobitz II today, asymptomatic. 2. Peripheral arterial disease, status post revascularization of the right lower extremity with residual left lower extremity disease. 3. Hypertension. 4. Diabetes. 5. Foot wound, status post I and D and 4th ray amputation. 6. Anemia. RECOMMEND: 1. Continue current cardiovascular medications with the following changes. Hold beta-matilde. 2. Consult Cardiac Electrophysiology. MD BHAVIK Romero/JONATHAN /[id number]
[2019-06-24] MEDS: PANTOPRAZOLE SODIUM 40 MG SUSPDR.PKT PO SCH (16:20)
[2019-06-24] MEDS: LINEZOLID 600 MG TAB PO SCH (16:20)
--- NOTE | 2019-06-24 16:30 | NUR ---
PT CHANGED MIND FOR FACILITY, WANTS [facility], SIGNED CHOICE AND FILED IN CHART, FAXED CLINICALS AND MED CHANGE TO [facility] [phone], DISCHARGE HELD DUE TO FEVER. PENDING AUTH.
--- NOTE | 2019-06-24 17:02 | Diagnostic Imaging Report ---
EXAMINATION: CHEST SINGLE (PORTABLE) INDICATION: Fever COMPARISON: Chest radiograph 06/21/2019 FINDINGS: LINES/TUBES:EKG leads overlie the chest. Right PICC line terminates in the SVC. LUNGS:The lung volumes remain low. There is perihilar fullness and indistinctness of the pulmonary vasculature. Unchanged patchy bibasilar opacities. PLEURA:Small right pleural effusion. No pneumothorax. MEDIASTINUM:Cardiomediastinal silhouette is stably enlarged. Atherosclerotic calcifications of the thoracic aorta. BONES/SOFT TISSUES:No acute osseous injury. ABDOMEN:No free air under the diaphragm. IMPRESSION: Unchanged cardiomegaly and pulmonary edema. Small right pleural effusion. Low lung volumes. Bibasilar patchy opacities, more likely subsegmental atelectasis than superimposed aspiration or pneumonia. Signed by: Demond Almaguer MD on 06/24/2019 4:59 PM
--- NOTE | 2019-06-24 19:28 | NUR ---
Patient received lying in bed. at bedside. AAO x 4. No acute distress noted. Dressing to right foot CDI. Safety measures in place. Call light within reach.
[2019-06-24] MEDS: IRON SUCROSE 100 MG in SODIUM CHLORIDE 0.9% 100 ML 100 ML IV SCH (20:00)
[2019-06-24] MEDS: TRAZODONE HCL 50 MG TAB PO SCH (21:00)
[2019-06-24] MEDS: ATORVASTATIN 40 MG TAB PO SCH (21:35)
[2019-06-25] VITALS (8 sets, daily range): BP systolic 124–166; BP diastolic 67–86
[2019-06-25] MEDS: MORPHINE SULFATE INJ 4 MG/ML INJ 1ML IV PRN ×4 (04:15→22:52)
[2019-06-25 05:48] LABS: BASOPHILS % 0.2 % (0.0-1.0); EOSINOPHILS # (AUTO) 0.2 (0.0-0.4); EOSINOPHILS % 1.4 % (0.0-6.0); LYMPHOCYTES # (AUTO) 2.5 (1.0-3.2); LYMPHOCYTES % 18.3 % (18.0-39.1); MEAN CORPUSCULAR HEMOGLOBIN 26.4 pg (28-32); MEAN CORPUSCULAR HGB CONC 31.1 g/dL (31-35); MEAN CORPUSCULAR VOLUME 84.9 fL (81-99); MONOCYTES # (AUTO) 1.8 (0.2-0.8); MONOCYTES % 13.2 % (4.4-11.3); NEUTROPHILS # (AUTO) 9.1 (2.1-6.9); NEUTROPHILS % 66.4 % (38.7-80.0); PLATELET COUNT 418 x10e3/uL (140-360); RED BLOOD COUNT 2.65 x10e6/uL (3.6-5.1); RED CELL DISTRIBUTION WIDTH 16.6 % (11.7-14.4)
[2019-06-25 05:58] LABS: HEMATOCRIT 22.5 % (34.2-44.1)
[2019-06-25 06:09] LABS: ANION GAP 14.2 mmol/L (8-16); CALCIUM 8.1 mg/dL (8.4-10.2); CREATININE, SERUM 1.37 mg/dL (0.57-1.11); POTASSIUM 4.2 mmol/L (3.5-5.1)
--- NOTE | 2019-06-25 06:37 | NUR ---
A message was left on Dr. Rica Mcqueen's voice-mail of HGB level of 7.0 and HCT level of 22.5. Awaiting call back.
--- NOTE | 2019-06-25 07:00 | NUR ---
Shift report given to oncoming nurse.
[2019-06-25] MEDS ORDERED: FUROSEMIDE INJ 10 MG/ML 2 ML VIAL IV PRN (07:45)
[2019-06-25] MEDS ORDERED: SODIUM CHLORIDE 0.9% 250ML 250 ML IV ONE (08:50)
[2019-06-25] MEDS: SUCRALFATE 1 GM TAB PO SCH ×4 (08:52→21:45)
[2019-06-25] MEDS: METOCLOPRAMIDE HCL 10 MG/2ML VIAL IV SCH ×4 (08:52→21:45)
[2019-06-25] MEDS: INSULIN LISPRO 100 UNIT/1 ML 3ML VIAL SQ SCH ×4 (08:55→21:00)
[2019-06-25] MEDS: INSULIN GLARGINE 100 UNITS/ML VIAL SQ SCH ×2 (08:56→16:30)
[2019-06-25] MEDS: DOCUSATE SODIUM 100 MG CAP PO SCH ×2 (09:00→17:00)
[2019-06-25] MEDS: NIFEDIPINE CR 30 MG TAB PO SCH ×2 (09:00→21:45)
[2019-06-25] MEDS: PANTOPRAZOLE SOD 40 MG TABEC PO SCH ×2 (09:00→18:14)
[2019-06-25] MEDS: LINEZOLID 600 MG TAB PO SCH (09:00)
--- NOTE | 2019-06-25 09:49 | NUR ---
CORRECTION FACILITY DISCHARGE INFORMATION PATIENT HAS BEEN ACCEPTED TO: NAME: NELIDA CHAN ADDRESS:[address] [place] [address] ACCEPTING [employer] REPAIRER: CRISTOFER ENCINAS ACCEPTING MD: NEFTALI ROOM: [id number] NURSE CALL REPORT TO: [phone] IMM SIGNED AND OBTAINED (if applicable): IMM
--- NOTE | 2019-06-25 10:35 | NUR ---
EDUCATED ABOUT IMM, SIGNED, FILED IN CHART, WITH COPY LEFT WITH FAMILY AT BEDSIDE.
--- NOTE | 2019-06-25 10:38 | Consultation ---
DATE OF CONSULTATION: 06/24/2019 REASON FOR CONSULTATION: AV block. HISTORY OF PRESENT ILLNESS: Ms. Gordon is a 59-year-old woman with a history of gangrenous foot who presented to the hospital with sepsis due to gangrenous foot, status post toe amputation. The patient was receiving antibiotics and in the hospital noted to have an episode of AV heart block which appears to be second degree. She had several episodes of these during waking hours. Of note, the patient had been on metoprolol prior to this which has been discontinued since then. The patient denies having any symptoms of lightheadedness, dizziness, or syncope. She did not have any previous history of cardiac problems. REVIEW OF SYSTEMS: She denies having fever, chills, lightheadedness, dizziness, chest pain, palpations, shortness of breath, coughing, discharge from the eyes, nose, mouth, swollen lymph node in the neck or groin, abdominal pain, nausea, vomiting, dysuria, hematuria, swelling in the joints, joint pain, numbness, tingling, weakness, skin rashes, ulcers, or swelling in the legs or arms. No depression or anxiety. PAST MEDICAL HISTORY: As mentioned above. In addition, diabetes mellitus, hypertension, and hyperlipidemia. PAST SURGICAL HISTORY: The patient does not have any cardiac surgeries. SOCIAL HISTORY: She does not smoke any cigarettes, dink any alcohol, or use any illicit drugs. FAMILY HISTORY: No family history of early cardiac or sudden arrhythmias. MEDICATIONS: 1. Tylenol. 2. Albuterol. 3. Aspirin. 4. Atorvastatin. 5. Clonidine. 6. Clopidogrel. 7. Hydralazine. 8. Insulin. 9. Ipratropium. 10. Linezolid. 11. Metoclopramide. 12. Morphine. 13. Nifedipine. 14. Pantoprazole. 15. Sucralfate. 16. Trazodone. ALLERGIES: NO KNOWN DRUG ALLERGIES. PHYSICAL EXAMINATION: VITAL SIGNS: Temperature is 97.4, heart rate is 81 sinus, blood pressure 117/58, and respiratory rate 12. TELEMETRY: On telemetry, the patient has normal sinus rhythm. She did have 2 episodes of AV heart block with single drop QRS. In addition, she did have one episode of two Q-waves that had dropped beat subsequently. GENERAL: No acute distress. Alert, awake, and oriented x3. HEENT: Normocephalic and atraumatic. Pupils are equal, round, and reactive to light. LYMPH: No supraclavicular or submandibular lymphadenopathy appreciated. CVS: S1 and S2. Regular rate and rhythm. RESPIRATORY: Good air entry globally. No wheezing. GI: Abdomen is soft and nontender. : No bladder fullness. No CVA tenderness. MUSCULOSKELETAL: No effusions or erythema noted in the knees or elbows bilaterally. NEUROLOGIC: 5/5 strength in all extremities bilaterally. No focal deficits. EXTREMITIES: No edema in lower extremities or upper extremities bilaterally. SKIN: No bruising or ulcers noted. PSYCH: Mood is normal. Answers questions appropriately. LABORATORY DATA: White count 18.5, hemoglobin 7.2, and platelets 409. Creatinine 1.3. Transthoracic echocardiogram demonstrates normal left ventricular ejection fraction approximately 55%. ASSESSMENT AND PLAN: Ms. Gordon is a 59-year-old woman with history as noted above, presented to the hospital with sepsis due to gangrenous foot, status post amputation. She is in the hospital and covered with antibiotics, had been on metoprolol and developed AV block. We can continue to monitor the patient off this beta matilde to see if this AV block would repeat itself. For now, given that there is a reason that the patient had AV block, it is important to show there are no reversible causes to it. However, given her history of coronary artery disease if the patient does require a beta matilde and she develops the heart block due to beta matilde that she may have indications for pacemaker implantation. I discussed with grape crusher to see the patient needs to continue beta matilde. In the meantime, we can continue to monitor the patient clinically. If she develops unstable heart block, we can always place a temporary externalized pacer in the interim as the patient recovered from her infection. This plan has been discussed with the patient as well as Dr. Boswell. Thank you very much for this consultation. Please feel free to call if you have any questions. FLORENCE REYNOLDS DO ML/MODL /[id number]
[2019-06-25] MEDS: PROMETHAZINE 25MG/ NS 50ML (IV) IV PRN (11:30)
[2019-06-25] MEDS ORDERED: SODIUM CHLORIDE 0.9% 250ML 250 ML ONE (12:46)
[2019-06-25] MEDS: ACETAMINOPHEN 325 MG TAB PO PRN (16:07)
--- NOTE | 2019-06-25 16:30 | NUR ---
KURT Faye was notified of patient's temp 101.2 after blood transfusion completed. Patient is asymptomatic and has no complaints or symptoms of a reaction. Tylenol was given and no other orders received.
[2019-06-25 17:37] LABS: HEMATOCRIT 26.5 % (34.2-44.1); HEMOGLOBIN 8.6 g/dL (12.0-16.0)
--- NOTE | 2019-06-25 17:50 | NUR ---
Temp recheck 98.8
[2019-06-25] MEDS: CLOPIDOGREL BISULFATE 75 MG TAB PO SCH (18:13)
[2019-06-25] MEDS: ASPIRIN 81 MG ENTERIC COATED PO SCH (18:13)
[2019-06-25] MEDS: LINEZOLID 600 MG/D5W 300ML 300 ML IV SCH (18:14)
--- NOTE | 2019-06-25 18:19 | NUR ---
Called lab to get 1700 repeat HH results, they show complete but are not posted in [facility]. Lab results were obtained verbally from collaborating supervising physician Hgb 8.6 and hematocrit 26.5. KURT Faye was notified of results. She was also notified of repeat temp of 98.8 She said patient can be discharged / transferred to SNF.
--- NOTE | 2019-06-25 19:25 | NUR ---
Patient received lying in bed. AAO x 4. Denies pain at this time. at bedside. Call light within reach.
[2019-06-25] MEDS: IRON SUCROSE 100 MG in SODIUM CHLORIDE 0.9% 100 ML 100 ML IV SCH (20:15)
[2019-06-25] MEDS: TRAZODONE HCL 50 MG TAB PO SCH (21:00)
[2019-06-25] MEDS: ATORVASTATIN 40 MG TAB PO SCH (21:45)
[2019-06-26] VITALS (10 sets, daily range): BP systolic 134–152; BP diastolic 64–83
[2019-06-26] MEDS: MORPHINE SULFATE 2 MG/ML SYR 1ML IV PRN (00:21)
--- NOTE | 2019-06-26 00:23 | NUR ---
Wound dressing performed per MD's orders. Patient tolerated well.
--- NOTE | 2019-06-26 01:57 | Progress Note ---
DATE: 06/25/2019 Cardiology Progress Note SUBJECTIVE: No complaints. OBJECTIVE: VITAL SIGNS: Temperature 97.8, heart rate 93, blood pressure 166/86, respiratory rate 18, O2 saturation 96%. GENERAL: No acute distress, alert. NECK: No JVD. CHEST: Clear to auscultation. CARDIOVASCULAR: Regular rate and rhythm. Normal S1 and S2. ABDOMEN: Soft. Bowel sounds positive. EXTREMITIES: Trace edema. CARDIOVASCULAR MEDICATIONS: Reviewed. Aspirin 81 mg daily, atorvastatin 40 mg at bedtime, clopidogrel 75 mg daily, furosemide p.r.n. posttransfusion 20 mg daily. STUDIES: Reviewed. Creatinine 1.3, glucose 218. Hemoglobin 7, platelets 418. ASSESSMENT AND PLAN: 1. A 59-year-old woman with peripheral arterial disease, status post revascularization, undergoing foot abscess drainage and 4th ray amputation, followed for anemia, renal failure, hypertension, diabetes mellitus, episode of dropped beats, concerning for Mobitz II second-degree AV block, asymptomatic. Recommend beta-matilde discontinued. Otherwise, continue rest of cardiovascular medications and keep on telemetry while in-house, so far no recurrence. 2. Appreciate Cardiac Electrophysiology expertise. At this time, EP recommending conservative management. MD BHAVIK Romero/JONATHAN /[id number]
[2019-06-26] MEDS: MORPHINE SULFATE INJ 4 MG/ML INJ 1ML IV PRN ×2 (04:42→14:41)
--- NOTE | 2019-06-26 04:45 | NUR ---
Patient complained of bleeding in right foot. Upon assessment, the dressing on dorsal aspect of the foot was semi-saturated. Dressing reinforced with gauze and bandage. Will continue to monitor.
[2019-06-26] MEDS: LINEZOLID 600 MG/D5W 300ML 300 ML IV SCH ×2 (05:00→17:28)
--- NOTE | 2019-06-26 06:17 | NUR ---
Dr. Cano paged regarding bleeding on patient's right foot. Awaiting call back.
--- NOTE | 2019-06-26 07:00 | NUR ---
Walking rounds done. Patient resting comfortably. BSSR given to oncoming nurse regarding patient's status.
[2019-06-26] MEDS: INSULIN LISPRO 100 UNIT/1 ML 3ML VIAL SQ SCH ×3 (07:30→16:30)
[2019-06-26] MEDS: SUCRALFATE 1 GM TAB PO SCH ×3 (08:15→17:25)
[2019-06-26] MEDS: METOCLOPRAMIDE HCL 10 MG/2ML VIAL IV SCH ×3 (08:24→17:36)
[2019-06-26] MEDS: PANTOPRAZOLE SOD 40 MG TABEC PO SCH ×2 (08:26→17:25)
[2019-06-26] MEDS: CLOPIDOGREL BISULFATE 75 MG TAB PO SCH (08:26)
[2019-06-26] MEDS: ASPIRIN 81 MG ENTERIC COATED PO SCH (08:27)
[2019-06-26] MEDS: NIFEDIPINE CR 30 MG TAB PO SCH (08:27)
[2019-06-26] MEDS: DOCUSATE SODIUM 100 MG CAP PO SCH ×2 (09:00→17:00)
[2019-06-26] MEDS: INSULIN GLARGINE 100 UNITS/ML VIAL SQ SCH ×2 (11:51→18:07)
--- NOTE | 2019-06-26 14:09 | Progress Note ---
DATE: 06/26/2019 Cardiology Progress Note SUBJECTIVE: No chest pain or shortness of breath. OBJECTIVE: VITAL SIGNS: Temperature 97.9, heart rate 83, blood pressure 150/83, respiratory rate . ABDOMEN: Soft. Bowel sounds positive. EXTREMITIES: Trace edema. Right foot covered with dressings. CARDIOVASCULAR MEDICATIONS: Reviewed. Aspirin 81 mg daily, atorvastatin, clopidogrel, hydralazine, nifedipine, and furosemide. STUDIES: Sodium 136, potassium 4.2, creatinine 1.3, hemoglobin 8.6, white blood cells , platelets 418. ASSESSMENT AND PLAN: A 59-year-old woman with peripheral arterial disease, status post revascularization of left lower extremity, anemia, chronic kidney disease, diabetes, hypertension, and dyslipidemia. RECOMMEND: Continue current cardiovascular medications and continue wound care. MD BHAVIK Romero/JONATHAN /[id number]
--- NOTE | 2019-06-26 15:45 | NUR ---
nurse deferring tx today Addendum: 06/26/19 at 1545 by Cesar Chirinos PTA Amended: Links added.
[2019-06-26 16:41] LABS: HEMATOCRIT 24.8 % (34.2-44.1); HEMOGLOBIN 7.9 g/dL (12.0-16.0)
--- NOTE | 2019-06-26 18:15 | Progress Note ---
DATE: 06/25/2019 CHIEF COMPLAINT: Generalized weakness, fever, and intractable nausea and vomiting. SUBJECTIVE: The patient is complaining of nausea and vomiting this morning, hemoglobin was low and transfusing 1 unit of PRBCs. No further complaints. PHYSICAL EXAMINATION: VITAL SIGNS: Temperature 97.8, pulse is 93, respirations 18, blood pressure 166/86, and pulse ox is 96% on room air. GENERAL: Fatigue and generalized weakness. HEENT: Normocephalic and atraumatic. NECK: Supple. CARDIOVASCULAR: Regular rate and rhythm. LUNGS: With decreased breath sounds. ABDOMEN: Soft and nontender. NEUROLOGIC: Alert, awake, and oriented x3. MUSCULOSKELETAL: Moves all extremities. SKIN: Dry right 4th toe amputation with dressing intact, was bleeding from the site. PSYCH: Calm. LABORATORY DATA: WBC 13.65, hemoglobin is 7.0, hematocrit is 22.5, and platelet is 418. Sodium 136, potassium 4.2, creatinine 1.37, estimated GFR 48, glucose 218, and calcium 8.1. IMPRESSION: 1. Sepsis due to right lower extremity osteomyelitis. Continue on Zyvox. Wound culture is positive for Enterococcus, sensitive to Zyvox. 2. Right foot osteomyelitis. Status post amputation per Podiatry. Continue Zyvox and wound care per Podiatry. 3. History of coronary artery disease. Resume home medication. 4. Accelerated hypertension. Continue home medications. 5. Dyspnea with small pleural effusion. Continue DuoNeb and IS. 6. Acute kidney injury. We will continue to monitor. Nephrology on the case. 7. Intractable nausea and vomiting. Status post EGD, which showed gastritis and gastric emptying, which showed gastroparesis. She is started on Reglan before meals and at bedtime. 8. Diabetes type 2. Continue sliding scale and Lantus b.i.d. 9. History of splenectomy. 10. Anemia of chronic disease and iron deficiency anemia. Hemoglobin is 7 today. We will give one more unit of PRBCs. 11. Peripheral arterial disease. Status post revascularization per Dr. Boswell. We will continue on Plavix. 12. Chronic pain. Continue pain medication per Pain Management. 13. Deep vein thrombosis prophylaxis. No chemical anticoagulation due to anemia. PLAN: To discharge to [facility] facility for wound care and antibiotics. Dictated by JUANIS Thakkar Yiching MD ELTON Ivan/JONATHAN /[id number]
--- NOTE | 2019-06-26 22:00 | NUR ---
PATIENT WAS TRANSPORTED SAFELY TO ANOTHER FROM BED TO STRETCHER BY EMS. NO SIGNS OF DISTRESS NOTED, IS WITH HER. PATIENT NOW DISCHARGED FROM HOSPITAL.
--- NOTE | 2019-06-27 03:12 | Discharge Summary ---
PRIMARY CARE PROVIDER: Dr. Viraj Lomeli at [facility]. FINAL DIAGNOSES: 1. Sepsis due to right lower extremity osteomyelitis. 2. Right foot osteomyelitis. 3. History of coronary artery disease. 4. Accelerated hypertension. 5. Dyspnea with pleural effusion. 6. Acute kidney injury. 7. Intractable nausea and vomiting due to dehydration. 8. Diabetes type 2, uncontrolled. 9. History of splenectomy. 10. Anemia of chronic diseases and iron deficiency. 11. Peripheral artery disease. 12. Chronic pain. CONSULTANTS: 1. Dr. Avilez with GI. 2. Dr. Boswell of Cardiology. 3. Dr. Mckeon with Infectious Disease. 4. Dr. Padilla with Pain Management. 5. Dr. Nunes with rectifying attendant. 6. Dr. Madelin Tam with EP. 7. Dr. Sutherland with Nephrology. PROCEDURES: 1. Had EGD shows gastritis. Had colonoscopy. 2. Gastric emptying showed gastroparesis. 3. Had right 4th toe amputation due to OM. 4. Revascularization of the right lower extremity per Cardiology. HISTORY: Per HPI. HOSPITAL COURSE: This is a 59-year-old female, who presented with generalized weakness, fever associated with nausea and vomiting, intractable, likely due to viral infection versus osteomyelitis. She was noted to have osteomyelitis of the right foot. Podiatry was consulted and the right 4th toe was amputated. Wound culture was positive for enterococcus faecalis. She was continued on IV antibiotics per sensitivity, but continued to have intractable nausea and vomiting with no improvement. GI was consulted, underwent EGD, which showed gastritis. She also had gastric emptying test, which showed gastroparesis. She was started on Reglan, which seemed to help with her nausea and vomiting. She had an episode of second-degree AV block, so EP Dr. Tam was consulted and recommended to stop the beta-blockers and follow up as an outpatient. The patient is to await revascularization. Today, she remained stable, she received a total of 2 units of PRBC during her stay. We will [facility] to [facility] to complete her IV antibiotics and wound care. PHYSICAL EXAMINATION: VITAL SIGNS: Temperature 98.2, pulse of 83, respirations 16, blood pressure 124/67, pulse ox 92% on room air. GENERAL: In no acute distress. HEENT: Normocephalic and atraumatic. NECK: Supple. CARDIOVASCULAR: Regular rate and rhythm. LUNGS: With decreased breath sounds. ABDOMEN: Soft and nontender. NEUROLOGIC: Alert, awake, and oriented x3 MUSCULOSKELETAL: Moves all extremities. SKIN: Right great toe amputation dressing intact. PSYCH: Calm. CONDITION AT DISCHARGE: Stable and improved. DISCHARGE MEDICATIONS: See medication reconciliation list. FOLLOWUP: Follow up with PCP, Cardiology, Infectious Disease and Podiatry. TIME SPENT: 35 minutes. Dictated by JUANIS Thakkar Yiching Pradeep Mcqueen MD MY/MODL /[id number] cc: Viraj Lomeli MD [facility]
== END 2019-06-26 22:01 | DRG 853 ==
LOC: ER 14:55 → ERHOLD 20:27 → MED/SURG2 06-09 01:28
PROVIDERS: ADMIT Internal Medicine; ATTEND Internal Medicine
PROC: 30233N1 Transfusion of Nonautologous Red Blood Cells into Peripheral Vein, Percutaneous Approach (ICD-10-PCS; 2019-06-13)
PROC: 0JBQ0ZZ Excision of Right Foot Subcutaneous Tissue and Fascia, Open Approach (ICD-10-PCS; 2019-06-14)
PROC: 02HV33Z Insertion of Infusion Device into Superior Vena Cava, Percutaneous Approach (ICD-10-PCS; 2019-06-14)
PROC: 0Y6V0Z0 Detachment at Right 4th Toe, Complete, Open Approach (ICD-10-PCS; principal; 2019-06-14 14:00)
PROC: 0DB38ZX Excision of Lower Esophagus, Via Natural or Artificial Opening Endoscopic, Diagnostic (ICD-10-PCS; 2019-06-17)
PROC: 0DB78ZX Excision of Stomach, Pylorus, Via Natural or Artificial Opening Endoscopic, Diagnostic (ICD-10-PCS; 2019-06-17)
PROC: 047P3ZZ Dilation of Right Anterior Tibial Artery, Percutaneous Approach (ICD-10-PCS; 2019-06-18)
PROC: 047T3ZZ Dilation of Right Peroneal Artery, Percutaneous Approach (ICD-10-PCS; 2019-06-18)
PROC: 04CP3ZZ Extirpation of Matter from Right Anterior Tibial Artery, Percutaneous Approach (ICD-10-PCS; 2019-06-18)
PROC: 04CT3ZZ Extirpation of Matter from Right Peroneal Artery, Percutaneous Approach (ICD-10-PCS; 2019-06-18)
PROC: B41D1ZZ Fluoroscopy of Aorta and Bilateral Lower Extremity Arteries using Low Osmolar Contrast (ICD-10-PCS; 2019-06-18)
PROC: 0JBQ0ZZ Excision of Right Foot Subcutaneous Tissue and Fascia, Open Approach (ICD-10-PCS; 2019-06-23)
DX: A41.9 Sepsis, unspecified organism (principal); J18.9 Pneumonia, unspecified organism; N17.9 Acute kidney failure, unspecified; N39.0 Urinary tract infection, site not specified; E11.52 Type 2 diabetes mellitus with diabetic peripheral angiopathy with gangrene; M86.171 Other acute osteomyelitis, right ankle and foot; I70.261 Atherosclerosis of native arteries of extremities with gangrene, right leg; J90 Pleural effusion, not elsewhere classified; L02.611 Cutaneous abscess of right foot; E11.621 Type 2 diabetes mellitus with foot ulcer; E11.69 Type 2 diabetes mellitus with other specified complication; E11.42 Type 2 diabetes mellitus with diabetic polyneuropathy; E11.22 Type 2 diabetes mellitus with diabetic chronic kidney disease; L97.512 Non-pressure chronic ulcer of other part of right foot with fat layer exposed; I12.9 Hypertensive chronic kidney disease with stage 1 through stage 4 chronic kidney disease, or unspecified chronic kidney disease; B95.2 Enterococcus as the cause of diseases classified elsewhere; N18.3 Chronic kidney disease, stage 3 (moderate); K29.70 Gastritis, unspecified, without bleeding; K44.9 Diaphragmatic hernia without obstruction or gangrene; E66.01 Morbid (severe) obesity due to excess calories; Z68.30 Body mass index [BMI] 30.0-30.9, adult; K21.9 Gastro-esophageal reflux disease without esophagitis; D63.8 Anemia in other chronic diseases classified elsewhere; D50.9 Iron deficiency anemia, unspecified; I25.10 Atherosclerotic heart disease of native coronary artery without angina pectoris; E86.0 Dehydration; E11.65 Type 2 diabetes mellitus with hyperglycemia; G89.4 Chronic pain syndrome; I44.1 Atrioventricular block, second degree; E87.6 Hypokalemia; K74.60 Unspecified cirrhosis of liver; R53.81 Other malaise; E78.5 Hyperlipidemia, unspecified; Z87.891 Personal history of nicotine dependence; Z79.4 Long term (current) use of insulin; Z79.82 Long term (current) use of aspirin; R65.20 Severe sepsis without septic shock
CPT/HCPCS: 36247; 36415; 36569; 36593; 37229; 37233; 43239; 71045; 74176; 74470; 75625; 75716; 76705; 76770; 76937; 78264; 80048; 80053; 80076; 81001; 82140; 82150; 82550; 82553; 82570; 82948; 83518; 83540; 83605; 83690; 83735; 83880; 84145; 84156; 84466; 84484; 85014; 85018; 85025; 85610; 85651; 85730; 86140; 86850; 86900; 86920; 87040; 87045; 87070; 87071; 87075; 87086; 87102; 87116; 87186; 87205; 87206; 87390; 87400; 88304; 88305; 88311; 88312; 93005; 93306; 93925; 94640; 97139; 99152; 99153; 99284; A9541; C1724; C1725; C1760; C1769; C1887; G0433; G0435; J0295; J0330; J0360; J0456; J0692; J0696; J0720; J1100; J1756; J1815; J1817; J1940; J2001; J2020; J2250; J2270; J2405; J2550; J2710; J2765; J2997; J3010; J3370; J3480; J7030; J7050; P9016; Q9967

== ENCOUNTER 2019-08-02 12:54 | Inpatient (IN) | payer OTHER ==
[~2019-08-02] VITALS: Ht 165.1 cm; Wt 83.5 kg
[~2019-08-02 12:54] MED LIST changes: +ADVAIR HFA 115-12 GM; +ASPIRIN EC81 MG PO; +B COMPLEX WITH1 EACH; +BACLOFEN10 MG PO; +COMBIVENT RESPIM4 GM IH; +CYMBALTA30 MG; +DIOVAN160 MG PO; +FAMOTIDINE20 MG PO; +LYRICA75 MG; +OMEPRAZOLE40 MG; +PIOGLITAZONE HC45 MG PO; +ROPINIROLE HCL1 MG PO; +TEMAZEPAM15 MG
--- NOTE | 2019-08-02 14:08 | Diagnostic Imaging Report ---
EXAMINATION: CHEST SINGLE (PORTABLE) INDICATION: Shortness of breath COMPARISON: Multiple prior chest are graft, most recently 06/24/2019 FINDINGS: LINES/TUBES:None LUNGS:The lungs are moderately inflated. There is perihilar fullness and indistinctness of the pulmonary vasculature. Interval development of increased airspace opacities at the right lower lobe and right middle lobe and to a lesser extent left lower lobe. PLEURA:No pleural effusion or pneumothorax. MEDIASTINUM:The cardiomediastinal silhouette appears unchanged in size and shape. BONES/SOFT TISSUES:No acute osseous injury. ABDOMEN:No free air under the diaphragm. IMPRESSION: Interval increase in airspace opacities at the right middle lobe, right lower lobe, and to a lesser extent left lower lobe. This may reflect air space edema however superimposed pneumonia could also have this appearance in the proper clinical setting. Signed by: Demond Almaguer MD on 08/02/2019 2:06 PM
[2019-08-02 14:11] LABS: BASOPHILS # (AUTO) 0.1 (0.0-0.1); BASOPHILS % 0.3 % (0.0-1.0); EOSINOPHILS # (AUTO) 0.1 (0.0-0.4); EOSINOPHILS % 0.2 % (0.0-6.0); HEMATOCRIT 24.1 % (34.2-44.1); HEMOGLOBIN 7.6 g/dL (12.0-16.0); LYMPHOCYTES # (AUTO) 4.7 (1.0-3.2); LYMPHOCYTES % 22.1 % (18.0-39.1); MEAN CORPUSCULAR HEMOGLOBIN 27.1 pg (28-32); MEAN CORPUSCULAR HGB CONC 31.5 g/dL (31-35); MEAN CORPUSCULAR VOLUME 86.1 fL (81-99); MONOCYTES # (AUTO) 1.8 (0.2-0.8); MONOCYTES % 8.5 % (4.4-11.3); NEUTROPHILS # (AUTO) 14.4 (2.1-6.9); NEUTROPHILS % 68.3 % (38.7-80.0); PLATELET COUNT 343 x10e3/uL (140-360); RED CELL DISTRIBUTION WIDTH 18.1 % (11.7-14.4)
[2019-08-02] MEDS ORDERED: CEFTRIAXONE SOD 1 GM VIAL IM ONE (14:30)
[2019-08-02 14:42] LABS: ALBUMIN 3.1 g/dL (3.5-5.0); ALBUMIN/GLOBULIN RATIO 0.7 (0.8-2.0); CALCIUM 8.5 mg/dL (8.4-10.2); CREATININE, SERUM 1.5 mg/dL (0.57-1.11)
[2019-08-02 14:51] LABS: CREATINE KINASE MB 1.8 ng/mL (0-5.0)
[2019-08-02] MEDS ORDERED: SODIUM CHLORIDE 0.9% 500ML 500 ML ONE (16:10)
[2019-08-02] MEDS ORDERED: SODIUM CHLORIDE 0.9% 500ML 500 ML IV ONE ×2 (16:15→17:00)
[2019-08-02] MEDS ORDERED: VANCOMYCIN 1GM/NS 250 ML 250 ML IV ONE (16:15)
[2019-08-02] MEDS ORDERED: VANCOMYCIN HCL 1GM/NS 250 ML BAG IV SCH (17:30)
--- NOTE | 2019-08-02 17:35 | Diagnostic Imaging Report ---
EXAM: CT Chest WITH contrast- Pulmonary Embolism Protocol INDICATION: Shortness of breath, cough COMPARISON: Chest radiograph earlier the same day TECHNIQUE: Chest was scanned utilizing a multidetector helical scanner from the lung apex through the level of the diaphragm after administration of IV contrast. Thin section reconstructions were obtained with special concentration on the pulmonary arteries. Coronal and sagittal reformations were obtained. Pulmonary embolism protocol was performed. IV CONTRAST: 100 cc of Isovue 370 RADIATION DOSE: Total DLP: 510 mGy*cm Dose modulation, iterative reconstruction, and/or weight based adjustment of the mA/kV was utilized to reduce the radiation dose to as low as reasonably achievable. COMPLICATIONS: None FINDINGS: LINES/ TUBES: None. PULMONARY ARTERIES: No filling defect is identified within the pulmonary arteries to the segmental level. The subsegmental pulmonary arteries are not well opacified. Main pulmonary artery measures 2.7 cm in diameter. LUNGS AND AIRWAYS: The central airways are patent. Multifocal groundglass and consolidative opacities involving the right upper lobe, right middle lobe and right lower lobe. Bilateral lower lobe dependent subsegmental atelectasis. PLEURA: Small left pleural effusion. Moderate right pleural effusion. HEART AND MEDIASTINUM: The thyroid gland is normal. No supraclavicular or axillary lymphadenopathy. Prominent mediastinal lymph nodes not meet size criteria for lymphadenopathy. Right hilar lymphadenopathy measures up to 1.4 cm short axis. The heart is not enlarged. No pericardial effusion. Scattered atherosclerotic calcifications of the coronary arteries. UPPER ABDOMEN: Hepatomegaly with marked enlargement of the left liver with air is a heterogeneous area concerning for underlying mass lesion. BONES: No acute osseous injury. Chronic degenerative/posttraumatic changes of the left sternoclavicular junction. SOFT TISSUES: Unremarkable. IMPRESSION: No pulmonary embolism. Multifocal consolidation involving the right upper, middle and lower lobes consistent with multifocal pneumonia. Signed by: Demond Almaguer MD on 08/02/2019 5:31 PM
--- NOTE | 2019-08-02 17:45 | NUR ---
placed patient on isolation, discussed isolation with patient and patient family. patient and family expressed understanding.
[2019-08-02 17:58] LABS: ABG HCO3 21 mmol/L (23-28); ABG PCO2 34 mmHg (41-51)
[2019-08-02] MEDS ORDERED: SODIUM CHLORIDE 0.9% 1000ML 1,000 ML IV SCH ×2 (18:15→19:45)
[2019-08-02] MEDS ORDERED: HYDRALAZINE HCL 20 MG/ML VIAL IV PRN (19:30)
[2019-08-02] MEDS ORDERED: ACETAMINOPHEN 325 MG TAB PO PRN ×2 (19:30)
[2019-08-02] MEDS ORDERED: ALBUTEROL/IPRATROPIUM 3 ML NEB NEB PRN (19:30)
--- NOTE | 2019-08-02 20:00 | NUR ---
Dr. Flores rounding on Pt at this time, Pt was removed from BIPAP prior to shift change, but placed back on BIPAP at this time.
[2019-08-02] MEDS ORDERED: DEXTROSE 50% SYRINGE 50 ML IV PRN ×2 (20:30→22:00)
--- NOTE | 2019-08-02 21:42 | History and Physical ---
CHIEF COMPLAINT: Shortness of breath, cough, congestion, and fever. HISTORY OF PRESENT ILLNESS: This is a 59-year-old female with known history of type 2 diabetes, who also has a diabetic foot on the right, being treated as an outpatient with the lens finisher. She comes into the ED with complaints of underlying shortness of breath, cough, congestion, and fever that has been ongoing since Friday of last week. The patient denies any sick contacts at home and has not been in crowded environment. She has not been out of the house since last Friday. Her close contacts at home are not sick at this current moment. Imaging studies here performed shows evidence of multifocal pneumonia. She has not traveled anywhere outside of the city. She denies any chest pain or any palpitations. Reports having subjective fevers at home. Her influenza test was found to be negative. The patient is seen and evaluated at bedside on the medical floor in the ER. She is currently doing well. She did have low oxygen desaturations 89% and she was on 5 L nasal cannula. She originally was on BiPAP, but seems to have weaned to nasal cannula at this current moment. REVIEW OF SYSTEMS: Pertinent positive: Cough, congestion, subjective fever, generalized weakness, and malaise. The rest of 14-point review of systems are reviewed with the patient and are negative. ALLERGIES: LISINOPRIL. HOME MEDICATIONS: She takes Tylenol No. 3, aspirin, baclofen, Cymbalta, famotidine, Advair, hydralazine, Combivent, Levaquin, Flagyl, omeprazole, Protonix, pioglitazone, Lyrica, propranolol, temazepam, valsartan, Lipitor, Coreg, torsemide, and trazodone. PAST MEDICAL HISTORY: She has a history of gastroparesis, diabetic foot ulcers, type 2 diabetes, coronary artery disease, PAD, right foot osteomyelitis, underlying sepsis to the right lower extremity due to osteomyelitis, and hypertension. PAST SURGICAL HISTORY: She had her right foot 4th toe amputated, was noted to have osteomyelitis, treated back in June of 2019. FAMILY HISTORY: Hypertension and diabetes. SOCIAL HISTORY: No drugs. No alcohol. Does not smoke. Good social support. She is . PHYSICAL EXAMINATION: VITAL SIGNS: Temperature is 99.7, pulse 86, respiratory rate 16, blood pressure 140/65, and pulse ox 100% on room air. GENERAL: Not in acute distress. Alert and oriented x3. Cooperative on examination. HEENT: Head; normocephalic, atraumatic. Eyes; pupils are equal, round, and reactive to light bilaterally. Extraocular movements intact bilaterally. Throat; no evidence of erythema or exudates in the posterior pharynx. Has poor dentition. NECK: Supple. Good range of motion. PULMONARY: Decreased breath sounds bilaterally. Fine crackles appreciated and mild wheezing appreciated. CARDIOVASCULAR: Positive S1 and S2. No murmurs, rubs, or gallops appreciated. ABDOMEN: Soft, nondistended, and nontender to palpation. Bowel sounds present. MUSCULOSKELETAL: Strength is 5/5 throughout. No evidence of any muscle deficits on examination. No weakness appreciated. NEUROLOGIC: Cranial nerves 2 through 12 grossly intact. No evidence of any neurological deficits on exam. SKIN: Intact. Warm to touch. Good cap refill. PSYCHIATRIC: Normal affect and mood. EXTREMITIES: No edema. Good range of motion throughout. LABORATORY FINDINGS: Show white count was 21, hemoglobin 7.6, hematocrit is 24, and platelets of 343. ABG; pH 7.4, pCO2 34, and bicarb 21. Chemistry; sodium 135, potassium 4, chloride 103, bicarb 22, anion gap of 14, BUN is 23, creatinine is 1.5, glucose 388, lactic acid 2.7, and calcium 8.5. LFTs within normal range. BNP 272. Albumin 3.1. Serologies, flu was negative. MICROBIOLOGY: Blood cultures are pending. IMAGING STUDIES: Chest x-ray shows evidence of multifocal pneumonia. CT chest IV contrast: No evidence of pulmonary embolism, but shows evidence of multifocal consolidation involving the right upper, middle, and lower lobes consistent with multifocal pneumonia. IMPRESSION: 1. Sepsis with leukocytosis/fever secondary to healthcare-associated pneumonia. 2. Right foot osteomyelitis, status post 4th toe amputation. 3. Type 2 diabetes. 4. Hypertension. 5. History of coronary artery disease. PLAN: At this time, Pulmonary has been consulted. She has been converted from BiPAP to nasal cannula. Continue with broad-spectrum IV antibiotics. Pancultures. She is CT consistent with her imaging studies that she has underlying multifocal pneumonia. Put on insulin sliding scale. Resume same home medications once available. I will consult with the patient's lens finisher for the right foot osteomyelitis. Also, consult with the patient's Infectious Disease doctor as well. Pulmonary has been consulted. Otherwise, we will continue with same plan of care and monitor very closely. Put on Lovenox for DVT prophylaxis. PT/OT evaluation. MD JENNY Alves/MODL /[id number]
[2019-08-02] MEDS ORDERED: METHYLPREDNISOLONE SOD SUCC 40 MG/ML VIAL 1ML IV SCH (22:00)
[2019-08-02] MEDS ORDERED: FUROSEMIDE INJ 10 MG/ML 4 ML VIAL IV ONE (23:00)
[2019-08-02] MEDS: CEFEPIME 1GM/NS 0.9% 50 ML 50 ML IV SCH (23:30)
[2019-08-02] MEDS: DULOXETINE HCL 30 MG DELAYED RELEASE PO SCH (23:30)
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
[2019-08-03] VITALS (25 sets, daily range): BP systolic 123–188; BP diastolic 64–99
[2019-08-03] MEDS ORDERED: PROMETHAZINE 12.5MG/ NACL 0.9% 12.5 MG/50 ML BAG IV PRN (01:00)
[2019-08-03] MEDS: AZITHROMYCIN 500MG/NS 250 ML 250 ML IV SCH (01:16)
[2019-08-03] MEDS ORDERED: ONDANSETRON HCL INJ 2MG/ML 2ML 2 MG/ML VIAL IM PRN (03:45)
[2019-08-03 05:25] LABS: BASOPHILS % 0.2 % (0.0-1.0); EOSINOPHILS % 0.2 % (0.0-6.0); HEMATOCRIT 23.6 % (34.2-44.1); HEMOGLOBIN 7.2 g/dL (12.0-16.0); LYMPHOCYTES # (AUTO) 1.2 (1.0-3.2); LYMPHOCYTES % 8.2 % (18.0-39.1); MEAN CORPUSCULAR HEMOGLOBIN 26.9 pg (28-32); MEAN CORPUSCULAR HGB CONC 30.5 g/dL (31-35); MEAN CORPUSCULAR VOLUME 88.1 fL (81-99); MONOCYTES # (AUTO) 0.2 (0.2-0.8); MONOCYTES % 1.4 % (4.4-11.3); NEUTROPHILS # (AUTO) 13.1 (2.1-6.9); NEUTROPHILS % 89.5 % (38.7-80.0); PLATELET COUNT 331 x10e3/uL (140-360); RED BLOOD COUNT 2.68 x10e6/uL (3.6-5.1); RED CELL DISTRIBUTION WIDTH 17.9 % (11.7-14.4)
[2019-08-03 05:41] LABS: ANION GAP 15.9 mmol/L (8-16); CALCIUM 8.4 mg/dL (8.4-10.2); CREATININE, SERUM 1.65 mg/dL (0.57-1.11)
[2019-08-03 05:51] LABS: POTASSIUM 4.9 mmol/L (3.5-5.1)
[2019-08-03] MEDS: CEFEPIME 1GM/NS 0.9% 50 ML 50 ML IV SCH ×2 (06:00→11:46)
--- NOTE | 2019-08-03 06:30 | NUR ---
ATTEMPTED TO PLACE NEW IV IN PATIENT AND SHE REFUSED. EDUCATED PT ON IMPORTANCE OF VENOUS ACCESS FOR TREATMENT. STATED SHE HAS "HAD A PICC BEFORE". NOTIFIED DR. AL, NEW ORDER PLACED FOR IR CONSULT & MIDLINE INSERTION. CONSENT OBTAINED FROM PATIENT. PT PLACED CALL LIGHT ON AND EXPRESSED THAT "MY LEFT ARM IS HURTING REAL BAD. PLEASE STOP THE IV." ASSESSING THE LUE, IV HAS INFILTRATED. IV STOPPED, DISCONNECTED, REMOVED, WARM COMPRESS APPLIED TO LUE. NOTIFIED DR. AL. RADIOLOGY COMMUNICATED IT WOULD BE A FEW HOURS BEFORE LINE PLACEMENT. PATIENT NOTIFIED.
[2019-08-03] MEDS: INSULIN REGULAR, HUMAN 100 UNIT/1 ML 3ML VIAL SQ SCH ×4 (07:05→21:00)
--- NOTE | 2019-08-03 08:50 | NUR ---
pt stable vs. no iv access at this time, pending midline placement. refusing PO meds at this time.
[2019-08-03] MEDS ORDERED: FAMOTIDINE 20 MG TAB PO SCH (09:00)
[2019-08-03] MEDS ORDERED: CEFTRIAXONE SOD 1 GRAM/0.9% SOD CHL 50ML BAG IV SCH (09:00)
[2019-08-03] MEDS ORDERED: CEFTRIAXONE SOD 1 GM/NS 50 ML 50 ML IV SCH (09:00)
--- NOTE | 2019-08-03 09:17 | Diagnostic Imaging Report ---
EXAM: CHEST SINGLE (PORTABLE) INDICATION: CHF COMPARISON: 08/02/2019 IMPRESSION: Lines and hardware: None Heart: Stable. Lungs and pleura: Stable right lung multifocal patchy airspace opacities, most prominent in the middle and lower lung zones. Retrocardiac patchy airspace opacity. Small layering bilateral pleural effusions. No pneumothorax. Bones: No acute abnormality. Signed by: Bert Case MD on 08/03/2019 9:13 AM
[2019-08-03] MEDS: DULOXETINE HCL 30 MG DELAYED RELEASE PO SCH ×2 (09:32→17:16)
[2019-08-03] MEDS: PANTOPRAZOLE SOD 40 MG TABEC PO SCH ×2 (09:32→17:16)
[2019-08-03] MEDS: ASPIRIN 81 MG ENTERIC COATED PO SCH (09:32)
--- NOTE | 2019-08-03 09:40 | NUR ---
Dr. Flores, as the [facility] is trying to limit the contact of people with patients suspected of COVID-19 to protect all patients and staff, physical therapy will not see the patient at this time. We are not canceling the order, but will check daily and see the patient when they are cleared. Thank you, Anabela Gutierrez, PT Addendum: 08/03/19 at 0945 by Anabela Gutierrez PT Amended: Links added.
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
[2019-08-03] MEDS: FUROSEMIDE INJ 10 MG/ML 4 ML VIAL IV SCH ×2 (11:46→17:16)
--- NOTE | 2019-08-03 15:11 | NUR ---
WOUND CARE CONSULT FOR 59 YO FEMALE HX OF HENRY JANSEN 13 ON MODERATE PUP STATUS AND INTERVENTIONS AND ALTERNATING PRESSURE MATTRESS LABS: WBC-14.62 HGB_7.2 [id number] SKIN ASSESSMENT COMPLETE PATIENT PRESENTS WITH RIGHT FOOT HEALING PAST SURGICAL AMPUTATION SITE MEASURES 2CM X1.5CMX .1CM 5TH MET HEAD HEALED CALLUS AREA TO RIGHT PLANTAR FOOT NEWLY HEALED RECOMMENDATIONS: NURSING TO CONTINUE TO MAINTAIN MODERATE PUP STATUS AND INTERVENTIONS AND ALTERNATING PRESSURE MATTRESS NURSING TO CONTINUE TO ASSIST PATIENT OUT OF BED FOR MEALS AND MUCH TOLERATED NURSING TO CONTINUE TO ASSIST PATIENT NEEDED WITH MEALS AND NUTRITIONAL SUPPLEMENTS TO ENSURE PROPER REQUIREMENTS FOR HEALING NURSING TO CONTINUE TO OFFLOAD FEET AND HEELS NEEDED WITH PILLOW SUSPENSION WHEN IN BED NURSING TO CLEAN RIGHT FOOT WOUND WITH NORMAL SALINE DAILY AND APPLY VENELEX OINTMENT TO RIGHT FOOT AND PROTECT WITH FOAM DRESSING PAD AND WRAP WITH KERLIX NURSING TO PROTECT NEWLY HEALED PLANTAR SURFACE WOUND OF RIGHT FOOT WITH FOAM PAD Addendum: 08/03/19 at 1519 by Irvin Cooper RN Amended: Links added.
--- NOTE | 2019-08-03 16:31 | Consultation ---
DATE OF CONSULTATION: 08/03/2019 REASON FOR CONSULTATION: Pneumonia. HISTORY OF PRESENT ILLNESS: This patient, who is a 59-year-old female has history of diabetes mellitus and history of congestive heart failure. The patient also has history of diabetic neuropathy. She has been sick for a few days with fever, chills, cough, congestion, and started to have some shortness of breath. Came to the emergency room. She is being admitted. She is currently in intensive care unit. She is saying her shortness of breath has improved. The patient has been sick for a few days. Back in May, she was in a cruise to [place], but that is about it. The patient denies any other contact or activity. She basically stays at the house. PAST MEDICAL HISTORY: Diabetes mellitus and congestive heart failure. PAST SURGICAL HISTORY: She denies. ALLERGIES: NKA. SOCIAL HISTORY: There is no smoking, drug abuse, or alcohol abuse. FAMILY HISTORY: Hypertension. REVIEW OF SYSTEMS: At the present time, her breathing is better. She is still feeling bad. She had no more fever now. MEDICATIONS: She is on Tylenol No. 3, baclofen, Cymbalta, famotidine, hydralazine, Combivent, Levaquin, Flagyl, Protonix, and Coreg. She is currently on insulin. She is on cefepime and vancomycin. The patient, who has also history of gastroparesis, diabetic foot ulcer, coronary artery disease, peripheral vascular disease, right foot osteomyelitis, and right foot amputation. LABORATORY DATA: White count when she first came was 21.1, hemoglobin 7.6. Her sodium 135, potassium 4.9, creatinine 1.65. Lactic acid 2.17. Her imaging; CAT scan and chest x-ray reviewed, showed multifocal consolidation involving the upper, middle and lower lobe. PHYSICAL EXAMINATION: GENERAL: She is currently alert and oriented. Does not seem to be in acute distress. VITAL SIGNS: Stable, currently afebrile. HEENT: She is not icteric. CHEST: Few rhonchi bilateral. COR: S1 and S2. No S3, S4, or murmur. ABDOMEN: Soft. Bowel sounds present. No tenderness. EXTREMITIES: No edema. IMPRESSION: 1. Sepsis on admission, pneumonia. I am really concerned about bacterial pneumonia with elevated white count. Her sputum has already been sent for COVID-19. Her influenza was negative. So we have to continue with IV antibiotic, vancomycin 1 g q.12 and 24 hours and cefepime 1 g q.8 and recheck CBC, recheck chem panel. Because we are in the epidemic area of COVID-19, we will keep in isolation until we rule out, although clinically, it is more consistent with bacterial pneumonitis. Obtain sputum for culture and sensitivity. 2. Chronic kidney disease. 3. Congestive heart failure. 4. We will follow. MD REGGIE Bangura/JONATHAN /[id number]
[2019-08-03] MEDS ORDERED: ENOXAPARIN SOD INJ 40 MG/0.4 ML SYR SC SCH (17:00)
[2019-08-03] MEDS: ENOXAPARIN SOD INJ 40 MG/0.4 ML SYR SC SCH (17:16)
[2019-08-03] MEDS: VANCOMYCIN 1GM/NS 250 ML 250 ML IV SCH (17:16)
[2019-08-03] MEDS: ONDANSETRON HCL INJ 2MG/ML 2ML 2 MG/ML VIAL IV PRN (17:27)
[2019-08-03] MEDS ORDERED: SODIUM CHLORIDE 0.9% 250ML 250 ML IV NR (18:15)
[2019-08-03] MEDS ORDERED: FUROSEMIDE INJ 10 MG/ML 4 ML VIAL IV NR (18:15)
--- NOTE | 2019-08-03 18:52 | Progress Note ---
DATE: 08/03/2019 Medicine Progress Note SUBJECTIVE: The patient is doing very well today with no complaints. She is still in isolation, trying to rule out the COVID-19. It is less likely to be that, but we are waiting on the final results. ID and Pulmonary are following. PHYSICAL EXAMINATION: VITAL SIGNS: Temperature is 98.2, pulse is 86, respiratory rate is 18, blood pressure is 169/87, and pulse ox is 99% on 3 L nasal cannula. GENERAL: Not in acute distress. Alert and oriented x3. Cooperative on examination. HEENT: Head; normocephalic, atraumatic. Eyes; pupils are equal, round, and reactive to light bilaterally. Extraocular movements intact bilaterally. Throat; no evidence of erythema or exudates in the posterior pharynx. Has poor dentition. NECK: Supple. Good range of motion. PULMONARY: Clear to auscultation bilaterally. No wheezing, no rales, no rhonchi, no crackles appreciated. CARDIOVASCULAR: Positive S1 and S2. No murmurs, rubs, or gallops appreciated. ABDOMEN: Soft, nondistended, and nontender to palpation. Bowel sounds present. MUSCULOSKELETAL: Strength is 5/5 throughout. No evidence of any muscle deficits on examination. No weakness appreciated. NEUROLOGIC: Cranial nerves 2 through 12 grossly intact. No evidence of any neurological deficits on exam. SKIN: Intact. Warm to touch. Good cap refill. PSYCHIATRIC: Normal affect and mood. EXTREMITIES: No edema. Good range of motion throughout. LABORATORY DATA: Show white count 14.6, hemoglobin 7.2, hematocrit is 23.6, and platelets of 331. Chemistry reviewed; sodium 135, potassium 4.9, chloride 104, bicarb 20, anion gap of 15, BUN is 25, creatinine 1.65, glucose is 381, and calcium is 8.4. CRP is pending. Coronavirus is pending. Flu is negative. Urine legionella is pending. MICROBIOLOGY: Blood cultures, no growth to date. IMAGING STUDIES: Chest x-ray this morning 08/03/2019, shows of right lung multifocal patchy airspace opacity, prominently likely to be a pneumonia. No pneumothorax seen. IMPRESSION: 1. Sepsis with leukocytosis and fever secondary to healthcare-associated pneumonia. 2. Right foot osteomyelitis, status post right 4th toe amputation. 3. Type 2 diabetes. 4. Hypertension. 5. History of coronary artery disease. 6. Anemia of chronic disease. PLAN: At this time, blood cultures are negative. Continue with broad-spectrum IV antibiotic therapy. She is on nasal cannula. ID is following. All cultures are negative today. Still pending coronavirus PCR, but seems to be less likely. More likely more of a multifocal pneumonia. Continue with aggressive IV antibiotic therapy. We did get the wound care nurse to address the right foot dressings. Continue with sliding scale long-acting insulin. Resume same antihypertensive medications. Continue with Lovenox for DVT prophylaxis. PT/OT evaluation. Overall, she is doing much better with no other issues. Get a.m. labs. MD JENNY Alves/JONATHAN /[id number]
--- NOTE | 2019-08-03 19:06 | NUR ---
pt remained stable vs throughout shift. able to get up to BSC safely without assist. pt and spouse aware of no visits while pending c19 results. pt pending 2u PRBC and sputum, unable to provide at this time. passed to night nurse
--- NOTE | 2019-08-03 19:30 | NUR ---
Received patient stable awaiting blood transfusion
--- NOTE | 2019-08-03 21:00 | NUR ---
First unit of blood started, patient vitals stable
[2019-08-04] VITALS (15 sets, daily range): BP systolic 133–180; BP diastolic 69–96
[2019-08-04] MEDS: AZITHROMYCIN 500MG/NS 250 ML 250 ML IV SCH ×2 (00:06→21:43)
[2019-08-04] MEDS: CEFEPIME 1GM/NS 0.9% 50 ML 50 ML IV SCH ×2 (02:00→13:13)
--- NOTE | 2019-08-04 03:00 | NUR ---
Second unit of blood started, patient stable no complains raised
[2019-08-04] MEDS: FUROSEMIDE INJ 10 MG/ML 4 ML VIAL IV SCH ×2 (06:00→18:30)
[2019-08-04] MEDS: INSULIN REGULAR, HUMAN 100 UNIT/1 ML 3ML VIAL SQ SCH ×4 (08:00→21:47)
[2019-08-04 08:41] LABS: BASOPHILS % 0.2 % (0.0-1.0); EOSINOPHILS % 0.1 % (0.0-6.0); HEMATOCRIT 30.3 % (34.2-44.1); HEMOGLOBIN 9.9 g/dL (12.0-16.0); LYMPHOCYTES # (AUTO) 3.4 (1.0-3.2); LYMPHOCYTES % 20.8 % (18.0-39.1); MEAN CORPUSCULAR HEMOGLOBIN 27.3 pg (28-32); MEAN CORPUSCULAR HGB CONC 32.7 g/dL (31-35); MEAN CORPUSCULAR VOLUME 83.5 fL (81-99); MONOCYTES # (AUTO) 1.5 (0.2-0.8); MONOCYTES % 9.2 % (4.4-11.3); NEUTROPHILS # (AUTO) 11.3 (2.1-6.9); NEUTROPHILS % 69.3 % (38.7-80.0); PLATELET COUNT 409 x10e3/uL (140-360); RED BLOOD COUNT 3.63 x10e6/uL (3.6-5.1); RED CELL DISTRIBUTION WIDTH 16.6 % (11.7-14.4)
[2019-08-04] MEDS: ASPIRIN 81 MG ENTERIC COATED PO SCH (08:42)
[2019-08-04] MEDS: DULOXETINE HCL 30 MG DELAYED RELEASE PO SCH ×2 (08:42→16:32)
[2019-08-04] MEDS: PANTOPRAZOLE SOD 40 MG TABEC PO SCH ×2 (08:42→16:30)
[2019-08-04] MEDS: BALSAM PERU/CASTOR OIL 60 GM OINT...G. TP SCH (08:42)
[2019-08-04] MEDS ORDERED: ALBUTEROL SULFATE HFA 8GM INHALATION AEROSOL INH PRN (08:45)
[2019-08-04 09:07] LABS: ANION GAP 14.6 mmol/L (8-16); CALCIUM 9.2 mg/dL (8.4-10.2); CREATININE, SERUM 1.74 mg/dL (0.57-1.11); MAGNESIUM 1.8 MG/DL (1.3-2.1); PHOSPHORUS 4.2 MG/DL (2.3-4.7); POTASSIUM 3.6 mmol/L (3.5-5.1)
[2019-08-04] MEDS: HYDRALAZINE HCL 20 MG/ML VIAL IV PRN (11:26)
[2019-08-04] MEDS: ONDANSETRON HCL INJ 2MG/ML 2ML 2 MG/ML VIAL IV PRN (11:36)
[2019-08-04] MEDS ORDERED: VALSARTAN 160 MG TAB PO SCH (12:30)
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
[2019-08-04] MEDS: HYDRALAZINE HCL 25 MG TAB PO SCH ×2 (16:00→21:43)
[2019-08-04] MEDS: VANCOMYCIN 1GM/NS 250 ML 250 ML IV SCH (16:30)
[2019-08-04] MEDS: CARVEDILOL 12.5 MG TAB PO SCH (16:31)
[2019-08-04] MEDS: ENOXAPARIN SOD INJ 40 MG/0.4 ML SYR SC SCH (16:32)
[2019-08-04] MEDS ORDERED: NON-FORMULARY MEDICATION (Carvedilol 25 MG) PO SCH (17:00)
[2019-08-04] MEDS: PROMETHAZINE 12.5MG/ NACL 0.9% 12.5 MG/50 ML BAG IV PRN (18:00)
--- NOTE | 2019-08-04 21:31 | Progress Note ---
DATE: 08/04/2019 Medicine Progress Note SUBJECTIVE: The patient reportedly feeling much better today with no complaints. No overnight events. PHYSICAL EXAMINATION: VITAL SIGNS: Temperature is 98.6, pulse 85, respiratory rate is 18, blood pressure is 160/73, and pulse ox 98% on room air. GENERAL: Not in acute distress. Alert and oriented x3. Cooperative on examination. HEENT: Head; normocephalic, atraumatic. Eyes; pupils are equal, round, and reactive to light bilaterally. Extraocular movements intact bilaterally. Throat; no evidence of erythema or exudates in the posterior pharynx. Has poor dentition. NECK: Supple. Good range of motion. PULMONARY: Clear to auscultation bilaterally. No wheezing, no rales, no rhonchi, no crackles appreciated. CARDIOVASCULAR: Positive S1 and S2. No murmurs, rubs, or gallops appreciated. ABDOMEN: Soft, nondistended, and nontender to palpation. Bowel sounds present. MUSCULOSKELETAL: Strength is 5/5 throughout. No evidence of any muscle deficits on examination. No weakness appreciated. NEUROLOGIC: Cranial nerves 2 through 12 grossly intact. No evidence of any neurological deficits on exam. SKIN: Intact. Warm to touch. Good cap refill. PSYCHIATRIC: Normal affect and mood. EXTREMITIES: No edema. Good range of motion throughout. LABORATORY DATA: Show CBC; white count is 16.3, hemoglobin 9.9, hematocrit is 30.3, and platelets of 409. Chemistries reviewed, show sodium 138, potassium 3.6, chloride 97, bicarb 30, anion gap of 14, BUN is 31, and creatinine is 1.74 at baseline. Rest of the electrolytes are stable. Phosphorus 4.2, magnesium 1.8, and calcium is 9.2. Coronavirus is pending. Flu was negative. Urinalysis is pending. MICROBIOLOGY: Blood cultures are no growth to date. IMPRESSION: 1. Sepsis with leukocytosis and fever secondary to healthcare-associated pneumonia. 2. Right foot osteomyelitis, status post 4th toe amputation. 3. Type 2 diabetes. 4. Hypertension. 5. Anemia of chronic disease. 6. History of coronary artery disease. PLAN: At this time, blood cultures have been negative. So far, all cultures have been negative. Coronavirus is pending. Continue with IV antibiotics. She is off nasal cannula. She is on room air now. ID and Pulmonary following very closely. Wound care is addressing the right foot dressings. Continue with sliding scale. Resume same antihypertensive medications. Lovenox for DVT prophylaxis. Get a.m. labs. If the patient is doing better and white count is improving, cleared by consultants then the patient can be discharged to home. MD JENNY Alves/JONATHAN /[id number]
[2019-08-04] MEDS: HYDROCODONE/APAP 5MG-325MG TAB PO PRN (21:47)
[2019-08-05] VITALS (8 sets, daily range): BP systolic 122–185; BP diastolic 56–86
[2019-08-05] MEDS: CEFEPIME 1GM/NS 0.9% 50 ML 50 ML IV SCH ×2 (01:15→14:28)
[2019-08-05] MEDS: HYDRALAZINE HCL 20 MG/ML VIAL IV PRN (05:40)
[2019-08-05] MEDS: HYDROCODONE/APAP 5MG-325MG TAB PO PRN (05:45)
[2019-08-05 06:19] LABS: BASOPHILS # (AUTO) 0.1 (0.0-0.1); BASOPHILS % 0.6 % (0.0-1.0); EOSINOPHILS # (AUTO) 0.2 (0.0-0.4); HEMATOCRIT 30.5 % (34.2-44.1); LYMPHOCYTES # (AUTO) 4.3 (1.0-3.2); LYMPHOCYTES % 35.4 % (18.0-39.1); MEAN CORPUSCULAR HEMOGLOBIN 27.3 pg (28-32); MEAN CORPUSCULAR HGB CONC 32.8 g/dL (31-35); MEAN CORPUSCULAR VOLUME 83.3 fL (81-99); MONOCYTES # (AUTO) 1.1 (0.2-0.8); MONOCYTES % 8.7 % (4.4-11.3); NEUTROPHILS # (AUTO) 6.5 (2.1-6.9); PLATELET COUNT 447 x10e3/uL (140-360); RED BLOOD COUNT 3.66 x10e6/uL (3.6-5.1); RED CELL DISTRIBUTION WIDTH 16.5 % (11.7-14.4)
[2019-08-05] MEDS: FUROSEMIDE INJ 10 MG/ML 4 ML VIAL IV SCH ×2 (06:20→17:10)
[2019-08-05 06:36] LABS: ANION GAP 15.4 mmol/L (8-16); CALCIUM 8.6 mg/dL (8.4-10.2); CREATININE, SERUM 1.66 mg/dL (0.57-1.11); POTASSIUM 3.4 mmol/L (3.5-5.1)
[2019-08-05] MEDS: INSULIN REGULAR, HUMAN 100 UNIT/1 ML 3ML VIAL SQ SCH ×4 (08:30→21:33)
[2019-08-05] MEDS: PROMETHAZINE 12.5MG/ NACL 0.9% 12.5 MG/50 ML BAG IV PRN (09:03)
[2019-08-05] MEDS: CARVEDILOL 12.5 MG TAB PO SCH ×2 (10:58→17:09)
[2019-08-05] MEDS: HYDRALAZINE HCL 25 MG TAB PO SCH ×3 (10:58→21:28)
[2019-08-05] MEDS: PANTOPRAZOLE SOD 40 MG TABEC PO SCH ×2 (10:58→17:09)
[2019-08-05] MEDS: ASPIRIN 81 MG ENTERIC COATED PO SCH (10:58)
[2019-08-05] MEDS: BALSAM PERU/CASTOR OIL 60 GM OINT...G. TP SCH (10:58)
[2019-08-05] MEDS: DULOXETINE HCL 30 MG DELAYED RELEASE PO SCH ×2 (10:58→17:09)
--- NOTE | 2019-08-05 11:24 | Diagnostic Imaging Report ---
EXAMINATION: CHEST SINGLE (PORTABLE) INDICATION: Pneumonia COMPARISON: Chest radiograph 08/03/2019 FINDINGS: LINES/TUBES:None LUNGS:The lungs are moderately inflated. Interval improvement in hazy bilateral airspace opacities. PLEURA:No pleural effusion or pneumothorax. MEDIASTINUM:The cardiomediastinal silhouette appears unchanged in size and shape. BONES/SOFT TISSUES:No acute osseous injury. ABDOMEN:No free air under the diaphragm. IMPRESSION: Interval improvement in bilateral right greater than left hazy airspace opacities. Signed by: Demond Almaguer MD on 08/05/2019 11:21 AM
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
[2019-08-05] MEDS ORDERED: POTASSIUM CHLORIDE 20 MEQ TAB CR PO NR (15:00)
[2019-08-05] MEDS: ENOXAPARIN SOD INJ 40 MG/0.4 ML SYR SC SCH (17:00)
[2019-08-05] MEDS: VANCOMYCIN 1GM/NS 250 ML 250 ML IV SCH (17:09)
--- NOTE | 2019-08-05 20:00 | Progress Note ---
DATE: 08/05/2019 Medicine Progress Note SUBJECTIVE: The patient reports feeling much better today. She does have poor appetite. PHYSICAL EXAMINATION: VITAL SIGNS: Temperature 97.1, pulse 70, respiratory rate is 18, blood pressure 122/56, and pulse ox 96% on room air. GENERAL: Not in acute distress. Alert and oriented x3. Cooperative on examination. HEENT: Head; normocephalic, atraumatic. Eyes, pupils are equal, round, and reactive to light bilaterally. Extraocular movements intact bilaterally. Throat; no evidence of erythema or exudates in the posterior pharynx. Has poor dentition. NECK: Supple. Good range of motion. PULMONARY: Clear to auscultation bilaterally. No wheezing, rales, or rhonchi. No crackles appreciated. CARDIOVASCULAR: Positive S1 and S2. No murmurs, rubs, or gallops. ABDOMEN: Soft, nondistended, and nontender to palpation. Bowel sounds present. MUSCULOSKELETAL: Strength is 5/5 throughout. NEUROLOGIC: Cranial nerves II through XII grossly intact. No evidence of any neurological deficits on exam. SKIN: Intact. Warm to touch. Good cap refill. PSYCHIATRIC: Normal affect and mood. EXTREMITIES: No edema. Good range of motion throughout. LABORATORY DATA: Labs show white count is 4.1, hemoglobin 10, hematocrit is 31, platelets of 447. Chemistry review shows sodium 139, potassium 3.4, chloride 98, bicarb 29, anion gap of 15, BUN is 28, creatinine is 1.6, glucose is 237, calcium is 8.6. Flu negative. Legionella still pending. Coronavirus PCR is still pending. MICROBIOLOGY: Blood cultures were negative. IMAGING STUDIES: Chest x-ray this morning shows interval improvement in bilateral right greater than left hazy airspace opacity. IMPRESSION: 1. Sepsis with leukocytosis with fever secondary to healthcare-associated pneumonia. 2. Right foot osteomyelitis status post 4th toe amputation. 3. Type 2 diabetes. 4. Hypertension. 5. Anemia of chronic disease. 6. History of coronary artery disease. PLAN: At this time, continue with IV antibiotics. All cultures have been found to be negative. Coronavirus PCR is still pending. She is on room air now. White count is improving. If everything is negative and if she does well, we will discharge on oral antibiotics tomorrow. Follow coronavirus PCR in the event the results are not back hospital follow up with the patient as well as [facility]. Discussed this with ID and production administrator in charge in the hospital. MD JENNY Alves/JONATHAN /[id number]
[2019-08-05] MEDS: AZITHROMYCIN 500MG/NS 250 ML 250 ML IV SCH (21:28)
[2019-08-05] MEDS: ONDANSETRON HCL INJ 2MG/ML 2ML 2 MG/ML VIAL IV PRN (21:29)
[2019-08-06 00:43] VITALS: BP 140/65
[2019-08-06] MEDS: CEFEPIME 1GM/NS 0.9% 50 ML 50 ML IV SCH ×2 (01:07→13:35)
[2019-08-06] MEDS: ONDANSETRON HCL INJ 2MG/ML 2ML 2 MG/ML VIAL IV PRN (01:31)
[2019-08-06 04:26] VITALS: BP 169/80
[2019-08-06] MEDS: FUROSEMIDE INJ 10 MG/ML 4 ML VIAL IV SCH ×2 (05:17→17:18)
[2019-08-06 05:28] LABS: BASOPHILS # (AUTO) 0.1 (0.0-0.1); BASOPHILS % 0.7 % (0.0-1.0); EOSINOPHILS # (AUTO) 0.3 (0.0-0.4); EOSINOPHILS % 2.4 % (0.0-6.0); HEMATOCRIT 33.1 % (34.2-44.1); HEMOGLOBIN 10.8 g/dL (12.0-16.0); LYMPHOCYTES # (AUTO) 3.3 (1.0-3.2); LYMPHOCYTES % 31.5 % (18.0-39.1); MEAN CORPUSCULAR HEMOGLOBIN 27.2 pg (28-32); MEAN CORPUSCULAR HGB CONC 32.6 g/dL (31-35); MEAN CORPUSCULAR VOLUME 83.4 fL (81-99); MONOCYTES # (AUTO) 1.1 (0.2-0.8); MONOCYTES % 10.2 % (4.4-11.3); NEUTROPHILS # (AUTO) 5.8 (2.1-6.9); NEUTROPHILS % 54.8 % (38.7-80.0); PLATELET COUNT 486 x10e3/uL (140-360); RED BLOOD COUNT 3.97 x10e6/uL (3.6-5.1); RED CELL DISTRIBUTION WIDTH 16.5 % (11.7-14.4)
[2019-08-06 05:47] LABS: ANION GAP 13.6 mmol/L (8-16); CALCIUM 8.6 mg/dL (8.4-10.2); CREATININE, SERUM 1.51 mg/dL (0.57-1.11); POTASSIUM 3.6 mmol/L (3.5-5.1)
--- NOTE | 2019-08-06 07:00 | NUR ---
received bedside report. pt is sleeping, no s/s of distress. call light within reach and bed safety in place
[2019-08-06] MEDS: INSULIN REGULAR, HUMAN 100 UNIT/1 ML 3ML VIAL SQ SCH ×3 (07:30→16:30)
[2019-08-06] MEDS: PANTOPRAZOLE SOD 40 MG TABEC PO SCH ×2 (08:54→16:30)
[2019-08-06] MEDS: DULOXETINE HCL 30 MG DELAYED RELEASE PO SCH ×2 (08:55→17:18)
[2019-08-06] MEDS: ASPIRIN 81 MG ENTERIC COATED PO SCH (08:55)
[2019-08-06] MEDS: HYDRALAZINE HCL 25 MG TAB PO SCH ×2 (08:55→15:45)
[2019-08-06] MEDS: CARVEDILOL 12.5 MG TAB PO SCH ×2 (08:55→17:18)
[2019-08-06 09:00] VITALS: BP 154/70
[2019-08-06 09:13] VITALS: BP 154/70
--- NOTE | 2019-08-06 11:53 | Diagnostic Imaging Report ---
EXAMINATION: CHEST SINGLE (PORTABLE) INDICATION: Pre-operative COMPARISON: Chest radiograph 08/05/2019 FINDINGS: LINES/TUBES:None LUNGS:The lungs are well-inflated. No focal consolidation or pulmonary edema. PLEURA:No pleural effusion or pneumothorax. MEDIASTINUM:The cardiomediastinal silhouette appears normal in size and shape. BONES/SOFT TISSUES:No acute osseous injury. ABDOMEN:No free air under the diaphragm. IMPRESSION: No focal pneumonia or pulmonary edema. Signed by: Demond Almaguer MD on 08/06/2019 11:50 AM
[2019-08-06 12:10] VITALS: BP 151/65
[2019-08-06] MEDS: BALSAM PERU/CASTOR OIL 60 GM OINT...G. TP SCH (13:20)
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
[2019-08-06] MEDS ORDERED: SODIUM CHLORIDE 0.9% 250ML 250 ML ONE (16:12)
[2019-08-06] MEDS: VANCOMYCIN 1GM/NS 250 ML 250 ML IV SCH (16:16)
[2019-08-06] MEDS: ENOXAPARIN SOD INJ 40 MG/0.4 ML SYR SC SCH (17:00)
[2019-08-06 17:08] VITALS: BP 124/60
--- NOTE | 2019-08-06 19:25 | Discharge Summary ---
FINAL DISCHARGE DIAGNOSES: 1. Sepsis with leukocytosis, fever secondary to healthcare-associated pneumonia. 2. Right foot osteomyelitis, status post fourth toe amputation performed prior to discharge. 3. Type 2 diabetes. 4. Hypertension. 5. Anemia of chronic disease. 6. History of coronary artery disease. 7. COVID-19 negative. CONSULTANTS: Pulmonary and Infectious Disease. PHYSICAL EXAMINATION: VITAL SIGNS: Temperature is 98.8, pulse 69, respiratory rate is 20, blood pressure 124/60, pulse ox 93% on room air. LABORATORY FINDINGS: Show white count 10.5, hemoglobin 10.8, hematocrit is 32, platelets of 486. ABG shows pH of 7.4, pCO2 of 34, bicarbonate is 21, this was on admission. Chemistry; sodium 132, potassium 3.6, chloride 99, bicarb 29, anion gap of 30, BUN is 29, creatinine 1.5, glucose is 210, calcium is 8.6, phosphorus is 4.2, magnesium is 1.8. LFTs within normal range. Troponins were negative. Albumin was 3.1. SEROLOGY: Coronavirus PCR not detected. Legionella urine antigen was negative. Influenza A/B was negative. MICROBIOLOGY: Blood cultures were negative. IMAGING STUDIES: Chest x-ray on admission, 08/02/2019, shows evidence of multifocal pneumonia. CT chest with IV contrast shows no evidence of pulmonary embolism. It shows multifocal consolidation involving the right upper, middle, and lower lobes consistent with multifocal pneumonia. Chest x-ray performed today, 08/06/2019, on discharge shows no focal pneumonia or pulmonary edema. HOSPITAL COURSE: A 59-year-old female comes into the ED with cough, congestion, and fever, was admitted for further evaluation and management. The patient was initially hypoxic, prompting Pulmonary consultation. Imaging studies were consistent with multifocal pneumonia. The patient was maintained on broad-spectrum IV antibiotic therapy, and ID was consulted. All cultures including blood cultures were negative. COVID-19 was negative. Flu was negative as well as her urine Legionella antigen was negative. The patient improved throughout the hospital course. The patient was doing well, afebrile, normotensive prior to being discharged. Symptom-garcia, the patient is doing well. She is actually ambulating with no issues at all. She has been cleared for discharge by Pulmonary and ID. She will be discharged on oral Levaquin for 5 additional days. Repeat chest x-ray shows evidence of clearance of her pneumonia. The patient will continue with same home medications at home that she is currently getting with no changes. On the day of discharge, vital signs were stable, and labs reviewed and stable. The patient was seen, evaluated, and examined thoroughly on the day of discharge. No other complaints. The patient verbalized understanding and agrees to plan of care to follow up accordingly as an outpatient with the primary care physician in 1 week and ID and Pulmonary 2 weeks' time. MEDICATIONS: See med reconciliation form including Levaquin 500 mg 1 tablet p.o. daily x5 days. DISPOSITION: Home. CONDITION: Stable. DIET: Heart healthy. In the event of any worsening symptoms, the patient was advised to come back to the ED for further evaluation. Discharge summary took greater than 35 minutes. MD JENNY Alves/MODL /[id number]
== END 2019-08-06 19:40 | disposition home or self-care (01) | DRG 871 ==
LOC: ER 12:54 → ERHOLD 17:30 → ICU 23:51 → IMCU 08-04 07:41
PROVIDERS: ADMIT Internal Medicine; ATTEND Internal Medicine
PROC: 5A09357 Assistance with Respiratory Ventilation, Less than 24 Consecutive Hours, Continuous Positive Airway Pressure (ICD-10-PCS; principal; 2019-08-02)
DX: A41.9 Sepsis, unspecified organism (principal); J15.9 Unspecified bacterial pneumonia; J96.01 Acute respiratory failure with hypoxia; E87.2 Acidosis; M86.8X7 Other osteomyelitis, ankle and foot; I13.0 Hypertensive heart and chronic kidney disease with heart failure and stage 1 through stage 4 chronic kidney disease, or unspecified chronic kidney disease; E11.69 Type 2 diabetes mellitus with other specified complication; E87.70 Fluid overload, unspecified; R65.20 Severe sepsis without septic shock; I25.10 Atherosclerotic heart disease of native coronary artery without angina pectoris; D64.9 Anemia, unspecified; E11.22 Type 2 diabetes mellitus with diabetic chronic kidney disease; N18.9 Chronic kidney disease, unspecified; K21.9 Gastro-esophageal reflux disease without esophagitis; M54.9 Dorsalgia, unspecified; E11.42 Type 2 diabetes mellitus with diabetic polyneuropathy; I50.9 Heart failure, unspecified; Z88.8 Allergy status to other drugs, medicaments and biological substances; Z89.421 Acquired absence of other right toe(s); Z83.3 Family history of diabetes mellitus; Z82.49 Family history of ischemic heart disease and other diseases of the circulatory system; Z79.82 Long term (current) use of aspirin; Z79.4 Long term (current) use of insulin
CPT/HCPCS: 36415; 36568; 36600; 71045; 71260; 74470; 80048; 80053; 82550; 82553; 82805; 82948; 83605; 83735; 83880; 84100; 84484; 85025; 85651; 86140; 86850; 86900; 86920; 87040; 87400; 87449; 87635; 94660; 99251; 99285; J0360; J0456; J0692; J0696; J1650; J1817; J1940; J2405; J2550; J2920; J3370; J7030; J7040; J7050; P9016

== ENCOUNTER 2020-01-16 12:19 | Inpatient (IN) | payer OTHER ==
[~2020-01-16] VITALS: Ht 152.4 cm; Wt 77.1 kg
[2020-01-16] MEDS ORDERED: VANCOMYCIN 1GM/NS 250 ML 250 ML IV STA (12:26)
[2020-01-16] MEDS ORDERED: CEFEPIME 1GM/NS 0.9% 50 ML 50 ML IV STA (12:26)
[2020-01-16 13:24] LABS: BASOPHILS # (AUTO) 0.1 (0.0-0.1); BASOPHILS % 0.5 % (0.0-1.0); EOSINOPHILS # (AUTO) 0.1 (0.0-0.4); EOSINOPHILS % 0.3 % (0.0-6.0); HEMATOCRIT 24.4 % (34.2-44.1); HEMOGLOBIN 7.6 g/dL (12.0-16.0); LYMPHOCYTES # (AUTO) 2.8 (1.0-3.2); LYMPHOCYTES % 12.6 % (18.0-39.1); MEAN CORPUSCULAR HEMOGLOBIN 25.3 pg (28-32); MEAN CORPUSCULAR HGB CONC 31.1 g/dL (31-35); MEAN CORPUSCULAR VOLUME 81.3 fL (81-99); MONOCYTES # (AUTO) 1.7 (0.2-0.8); MONOCYTES % 7.7 % (4.4-11.3); NEUTROPHILS # (AUTO) 17.3 (2.1-6.9); NEUTROPHILS % 77.8 % (38.7-80.0); PLATELET COUNT 624 x10e3/uL (140-360); RED CELL DISTRIBUTION WIDTH 13.2 % (11.7-14.4)
[2020-01-16] MEDS ORDERED: CEFTRIAXONE SOD 1 GM VIAL IM ONE (13:34)
[2020-01-16] MEDS ORDERED: LIDOCAINE HCL 1% 2 ML AMP ONE (13:36)
[2020-01-16] MEDS ORDERED: CEFTRIAXONE SOD 1 GM VIAL ONE (13:36)
[2020-01-16 13:45] LABS: ALBUMIN 2.6 g/dL (3.5-5.0); ALBUMIN/GLOBULIN RATIO 0.4 (0.8-2.0); ANION GAP 21.6 mmol/L (8-16); CALCIUM 9.6 mg/dL (8.4-10.2); CREATININE, SERUM 2.17 mg/dL (0.57-1.11); POTASSIUM 4.6 mmol/L (3.5-5.1)
[2020-01-16] MEDS ORDERED: LIDOCAINE HCL 1% 2 ML AMP INJ ONE (13:45)
--- OUTSIDE RECORDS SUMMARY | 2020-01-16 13:46 | XMS REPORT | Clinical Summary ---
Author Author [facility] Address Unknown Phone Unavailable Care Team Providers Care Centerpuncher Name Role Phone Viraj Lomeli MD PCP Unavailable Allergies Comments Active Allergy Reactions Severity Noted Date Cough Lisinopril 12/10/2017 Medications End Date Status Medication Sig Dispensed Refills Start Date Active polyethylene glycol Take 17 g by 30 each 0 02/13 (GLYCOLAX) 17 gram packet mouth daily 5 as needed (Constipation ). Active cilostazol (PLETAL) 50 MG Take 50 mg by 0 07/0 /201 tablet mouth 2 (two) 8 times daily. Active clopidogrel (PLAVIX) 75 Take 75 mg by 0 // 201 mg tablet mouth daily. 8 Active DULoxetine (CYMBALTA) 60 Take 60 mg by 0 01/27 MG capsule mouth 2 (two) 8 times daily . Active fluticasone (FLONASE) 50 USE 2 SPRAYS 0 08/13 mcg/actuation nasal spray IN EACH 7 NOSTRIL DAILY Active psyllium husk (KONSYL) 6 Take by 0 gram PwPk packet mouth. Active torsemide (DEMADEX) 20 MG Take 20 mg by 0 / tablet mouth daily . 8 Active valsartan (DIOVAN) 320 MG Take 320 mg 0 tablet by mouth daily . Active aspirin 81 MG EC tablet Take 81 mg by 0 mouth daily . 8 Active atorvastatin (LIPITOR) 40 Take 40 mg by 0 /05 19/201 MG tablet mouth daily . 8 Active hydroCHLOROthiazide Take 12.5 mg 0 (MICROZIDE) 12.5 mg by mouth capsule daily . Active omeprazole (PRILOSEC) 20 Take 20 mg by 0 01/27 / MG capsule mouth daily . 8 Active metoprolol (LOPRESSOR) Take 100 mg 0 01/20/ 01 100 MG tablet by mouth 2 8 (two) times daily. Active traZODone (DESYREL) 150 Take 150 mg 0 MG tablet by mouth nightly. Active acetaminophen-codeine Take 1 tablet 0 (TYLENOL #3) 300-30 mg by mouth per tablet every 6 (six) hours as needed for Pain. Active baclofen (LIORESAL) 10 MG Take 10 mg by 0 tablet mouth 2 (two) times daily as needed (for muscle spasms). Active albuterol-ipratropium Inhale 2 0 (COMBIVENT RESPIMAT) puffs by 20-100 mcg/actuation Mist mouth via inhaler inhaler daily as needed for Wheezing. Active hydrALAZINE (APRESOLINE) Take 50 mg by 0 50 MG tablet mouth 3 (three) times daily. Active insulin aspart (NOVOLOG Inject 38 0 FLEXPEN U-100 INSULIN Units SUBQ) subcutaneousl y 3 (three) times daily with meals. Active insulin detemir U-100 Inject 56 0 (LEVEMIR) 100 unit/mL (3 Units mL) InPn injection subcutaneousl y 2 (two) times daily with breakfast and dinner. Active pregabalin (LYRICA) 200 Take 200 mg 0 MG capsule by mouth 3 (three) times daily. Active clindamycin (CLEOCIN) 300 Take 300 mg 0 07/17 MG capsule by mouth. 0 Active ciprofloxacin HCl (CIPRO) Take 500 mg 0 11/17 500 MG tablet by mouth 2 0 (two) times daily. Active Problems Problem Noted Date Acute kidney injury 12/04/2018 Nausea vomiting and diarrhea 12/04/2018 Hyperlipidemia 12/04/2018 Gastroesophageal reflux disease without esophagitis 12/04/2018 CKD (chronic kidney disease) stage 3, GFR 30-59 ml/mi n 12/04/2018 PAD (peripheral artery disease) 12/04/2018 Coronary artery disease involving zuni coronary art [place] of zuni heart 12/04/2018 without angina pectoris Uncontrolled diabetes mellitus with hyperglycemia, wi th long-term current 12/03/2018 use of insulin Diabetic polyneuropathy associated with type 2 diabet es mellitus 12/10/2017 Chronic diastolic CHF (congestive heart failure) 04/2017 Chronic anemia 05/18/2013 Overview: Mixed type Chronic back pain 05/10/2013 Essential hypertension 05/10/2013 Encounters Care Team Description Date Type Specialty Jonathan Bautista MD Diabetic ulcer of toe of right foot jonna ciated with type 2 diabetes mellitus, unspecified ulcer stage (HCC) (Primary Dx) 01/10/2020 Emergency Emergency Medicine 01/10/2020 Travel after 01/15/2019 Family History Medical History Relation Name Comments Coronary artery disease Brother 3 brothers dec eased f [place] Diabetes Brother Hypertension Brother Cancer Father Diabetes [...] Vital Signs Time Taken Vital Sign Reading 01/10/2020 4:50 PM CDT Blood Pressure 138/76 01/10/2020 4:50 PM CDT Pulse 81 01/10/2020 4:50 PM CDT Temperature 36.7 C (98.1 F) 01/10/2020 4:50 PM CDT Respiratory Rate 18 01/10/2020 4:50 PM CDT Oxygen Saturation 100% - Inhaled Oxygen - Concentration 01/10/2020 4:50 PM CDT Weight 77.1 kg (170 lb) 01/10/2020 4:50 PM CDT Height 165.1 cm (5' 5") 01/10/2020 4:50 PM CDT Body Mass Index 28.29 Plan of Treatment Not on file Implants Device Identifier Shelf Expiration Date Model / Serial / L ot Implanted Type Area Manufactur er 01/16/2017 [id number] Adhesion Barrier,Seprafilm 5x6 - Cement/Nguyễn N/A: Abdomen GENZYME [id number] ler/Adhesi SURGICAL Implanted: Qty: 1 on 01/16/2015 by Cesar Klein MD Results Not on fileafter 01/15/2019 Insurance Payer Benefit Subscriber ID Type Phone Address Plan / Group [employer] TEX[employer] x[facility] [id number] Advance Directives For more information, please contact: [facility] [address] [place] [address] Date Inactivated Comments Code Status Date Activated 01/10/2020 7:44 PM Full Code 01/10/2020 5:10 PM This code status was determined by: Patient 12/05/2018 6:27 PM Full Code 12/04/2018 2:16 PM This code status was determined by: Patient 08/11/2018 8:30 AM Full Code 06/01/2018 5:59 AM This code status was determined by: Patient 12/12/2017 5:36 PM Full Code 12/10/2017 6:58 PM This code status was determined by: Patient 11/01/2017 2:24 PM Full Code 10/30/2017 8:49 PM This code status was determined by: Patient
--- OUTSIDE RECORDS SUMMARY | 2020-01-16 13:47 | XMS REPORT | Continuity of Care Document ---
Author Author [facility] t Organization [facility] Address 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 Role Phone NONSTAFF PCP Unavailable Rudy Bautista MD Attphys DAPACO, Mariam GILMORE Attphys Unavailable Diandra ROBBINS YICHING Attphys Unavailable ASHISH SEVILLA Attphys Unavailable Poppy BAIRD Attphys Unavailable SHAHRIAR ZURITA Attphys Unavailable THANIA HERNANDEZ Attphys Unavailable ALI, QASAM SANAH Attphys Unavailable ZENOBIA MÁRQUEZ Attphys Unavailable NELIDA, FRANCIS ATASU Attphys Unavailable Annette ANDREWS Attphys Unavailable DAMariam ANTONIO JIRIES Admphys Unavailable Diandra ROBBINS YICHING Admphys Unavailable Kain LOPEZ Admphys Unavailable QUITA AMAYA Admphys Unavailable ALI, QASAM SANAH Admphys Unavailable PILY BAIG Admphys Unavailable NELIDA, FRANCIS ATASU Admphys Unavailable ALAGUGURUSAMY, ZE Admphys Unavailable Payers Payer Name Policy Type Policy Number Effective Date Expiration Date Mariam travis [employer] ALLxxxxxxxxxMaps Contracted xxxxxxx xx [facility] [employer] [id number] 2019 00:00:00 [facility] Problems Condition Name Condition Details Condition Category Status Onset Date Resolution Date Last Treatment Date Treating Clinician Comments Source Acute kidney injury Acute kidney injury Disease Active 2018-12-04 00:00 [facility] Nausea vomiting and diarrhea Nausea vomiting and diarrhea Disease Active 2018-12-04 00:00:00 [facility] Hyperlipidemia Hyperlipidemia Disease Active 2018-12-04 00:00:00 [facility] Gastroesophageal reflux disease without esophagitis Ga stroesophageal reflux disease without esophagitis Disease Active 2018-12-04 00:00:00 [facility] CKD (chronic kidney disease) stage 3, GFR 30-59 ml/min CKD (chronic kidney disease) stage 3, GFR 30-59 ml/min Disease Active 2018-12-04 00:00:00 [facility] PAD (peripheral artery disease) PAD (peripheral artery disease) Dis ease Active 2018-12-04 00:00:00 [facility] Coronary artery disease involving grand traverse coronary artery of grand traverse heart without angina pectoris Coronary artery disease involving grand traverse coronary artery of grand traverse heart without angina pectoris Disease Active 2018-12-04 00:00:00 [facility] Uncontrolled diabetes mellitus with hype rglycemia, with long-term current use of insulin Uncontrolled diabetes mellitus with hype rglycemia, with long-term current use of insulin Disease Active 2018-12-03 00:00:00 [facility] Diabetic polyneuropathy associated with type 2 diabete s mellitus Diabetic polyneuropathy associated with type 2 diabetes mellitus Disease Acti ve 2017-12-10 00:00:00 [facility] Chronic diastolic CHF (congestive heart failure) Chron ic diastolic CHF (congestive heart failure) Disease Active 2016-07-28 00:00:00 [facility] Chronic anemia Chronic anemia Disease Active 2013-05-18 00:00:00 Overview: Mixed type [facility] Chronic back pain Chronic back pain Disease Active 2013-05-10 00:00:00 [facility] Essential hypertension Essential hypertension Disease Active 2013-05-10 00:00:00 [facility] Acute hyperglycemia Acute hyperglycemia Problem Active [facility] Back pain of lumbosacral region with sciatica Back froylan n of lumbosacral region with sciatica Problem Active [facility] Hypertensive urgency Hypertensive urgency Problem Active [facility] Diarrhea Diarrhea Problem Active [facility] Leukocytosis Leukocytosis Problem Active [facility] Pneumonia Pneumonia Problem Active [facility] Sepsis Sepsis Problem Active [facility] Urinary tract infection UTI (urinary tract infection) Problem Active [facility] Acute respiratory failure Acute respiratory failure Problem Active [facility] Allergies, Adverse Reactions, Alerts Allergy Name Allergy Type Status Severity Reaction(s) Onset Date Inacti ve Date Treating Clinician Comments Source Lisinopril Allergy to Substance Active 2018-12-01 00:00:00 [facility] Lisinopril Propensity to adverse reactions Active 12-10 00:00:00 Cough [facility] Family History Family Member Diagnosis Comments Start Date Stop Date Source Natural brother Coronary artery disease [facility] Natural brother Diabetes [facility] Natural brother Hypertension [facility] Natural father Cancer [facility] Maternal grandmother Diabetes [facility] Natural mother Coronary artery disease [facility] Natural mother Diabetes [facility] Natural mother Hypertension [facility] Paternal grandfather Cancer [facility] Paternal grandmother Diabetes [facility] Natural sister Cancer [facility] Natural sister Diabetes [facility] Natural sister Hypertension [facility] Social History Social Habit Start Date Stop Date Quantity Comments Source Sex Assigned At [facility] Smoking Status Start Date Stop Date Source Never smoker [facility] Medications Ordered Medication Name Filled Medication Name Start Date Stop Da te Current Medication? Ordering Clinician Indication Dosage Frequency Signature (SIG) Comments Components Source ciprofloxacin HCl (CIPRO) 500 MG tablet 2019-12-08 00:00:00 Yes 500mg Q.5D Take 500 mg by mouth 2 (two) times daily. [facility] clindamycin (CLEOCIN) 300 MG capsule 2019-07-30 00:00:00 Ye s 300mg Take 300 mg by mouth. [facility] Levofloxacin (Levaquin) 500 Mg Tablet Levofloxacin (Levaquin ) 500 Mg Tablet 2019-04-01 00:00:00 Yes Annie [facility]leton [facility] Manager 500 Daily [facility] Metronidazole (Flagyl) 500 Mg Tablet Metronidazole (Flagyl) 500 Mg Tablet 2019-04-01 00:00:00 Yes Annie [facility]leton Medical Services Manager 500 Three T imes A Day [facility] Pantoprazole Sodium (Protonix) 40 Mg Suspdr.pkt Pantop razole Sodium (Protonix) 40 Mg Suspdr.pkt 2019-04-01 00:00:00 Yes Annie Singleton [facility] Services Manager 4 0 Twice A Day [facility] insulin detemir U-100 (LEVEMIR) 100 unit/mL (3 mL) InPn inje ction 2018-12-04 14:11:17 Yes 56U Inject 56 Units subcutaneously 2 (two) times daily with breakfast and dinner. [facility] pregabalin (LYRICA) 200 MG capsule 2018-12-04 14:11:17 Y es 200mg Q.[id number] Take 200 mg by mouth 3 (three) times daily. [facility] baclofen (LIORESAL) 10 MG tablet 2018-12-04 14:11:16 Yes 10mg Take 10 mg by mouth 2 (two) times daily as needed (for muscle spasms). [facility] albuterol-ipratropium (COMBIVENT RESPIMAT) 20-100 mcg/actuat ion Mist inhaler 2018-12-04 14:11:16 Yes 2{puff} Inhale 2 puffs by mouth via inhaler daily as needed for Wheezing. [facility] hydrALAZINE (APRESOLINE) 50 MG tablet 2018-12-04 14:11:16 Yes 50mg Q.[id number] Take 50 mg by mouth 3 (three) times daily. [facility] insulin aspart (NOVOLOG FLEXPEN U-100 INSULIN SUBQ) 12-04 14:11:16 Yes 38U Inject 38 Units subcutaneously 3 (three) times daily with meals. [facility] acetaminophen-codeine (TYLENOL #3) 300-30 mg per tablet 2018-12-04 14:08:45 Yes 1{tbl} Take 1 tablet by mouth ev [place] 6 (six) hours as needed for Pain. [facility] valsartan (DIOVAN) 320 MG tablet 2018-12-04 14:08:12 Yes 320mg QD Take 320 mg by mouth daily . [facility] traZODone (DESYREL) 150 MG tablet 2018-12-04 14:08:12 Yes 150mg QD Take 150 mg by mouth nightly. [facility] hydroCHLOROthiazide (MICROZIDE) 12.5 mg capsule 2018-12-04 14:06 :20 Yes 12.5mg QD Take 12.5 mg by mouth daily . [facility] psyllium husk (KONSYL) 6 gram PwPk packet 2018-02-04 11:24:38 Yes Take by mouth. [facility] torsemide (DEMADEX) 20 MG tablet 2018-01-29 00:00:00 Yes 20mg QD Take 20 mg by mouth daily . [facility] DULoxetine (CYMBALTA) 60 MG capsule 2018-01-27 00:00:00 Yes 60mg Q.5D Take 60 mg by mouth 2 (two) times daily . [facility] aspirin 81 MG EC tablet 2018-01-27 00:00:00 Yes 81mg QD Take 81 mg by mouth daily . [facility] atorvastatin (LIPITOR) 40 MG tablet 2018-01-27 00:00:00 Yes 40mg QD Take 40 mg by mouth daily . [facility] omeprazole (PRILOSEC) 20 MG capsule 2018-01-27 00:00:00 Yes 20mg QD Take 20 mg by mouth daily . [facility] metoprolol (LOPRESSOR) 100 MG tablet 2018-01-20 00:00:00 Ye s 100mg Q.5D Take 100 mg by mouth 2 (two) times daily. [facility] cilostazol (PLETAL) 50 MG tablet 2017-11-20 00:00:00 Yes 50mg Q.5D Take 50 mg by mouth 2 (two) times daily. [facility] clopidogrel (PLAVIX) 75 mg tablet 2017-11-20 00:00:00 Yes 75mg QD Take 75 mg by mouth daily. [facility] fluticasone (FLONASE) 50 mcg/actuation nasal spray 2016-07 00:00:00 Yes USE 2 SPRAYS IN EACH NOSTRIL DAILY [facility] polyethylene glycol (GLYCOLAX) 17 gram packet 2015-02-13 00:00:0 0 Yes 17g Take 17 g by mouth daily as needed (Constipation). [facility] Acetaminophen/Codeine Phosphate (Tylenol # 3*) 1 Ea Ta b Acetaminophen/Codeine Phosphate (Tylenol # 3*) 1 Ea Tab Yes 1 Thre e Times A Day [facility] Aspirin (Aspirin Ec) 81 Mg Tablet. Aspirin (Aspirin Ec) 81 Mg Tab let.dr Yes 81 Daily [facility] Atorvastatin Calcium 40 Mg Tablet Atorvastatin Calcium 40 Mg Tablet Yes 40 Bedtime [facility] Baclofen 10 Mg Tablet Baclofen 10 Mg Tablet Yes 10 Twice A Day [facility] Carvedilol 25 Mg Tablet Carvedilol 25 Mg Tablet Yes 25 Twice A Day [facility] Duloxetine Hcl (Cymbalta) 30 Mg Capsule. Duloxetine Hcl (Cymbalta) 30 Mg Capsule. Yes 60 Twice A Day [facility] Famotidine 20 Mg Tab Famotidine 20 Mg Tab Yes 20 Twice A Day [facility] Fluticasone/Salmeterol (Advair Hfa 115-21 Mcg Inhaler) 12 Gm Hfa.aer.ad Fluticasone/Salmeterol (Advair Hfa 115-21 Mcg Inhaler) 12 Gm Hfa.aer.ad Yes [facility] Hydralazine Hcl 25 Mg Tab Hydralazine Hcl 25 Mg Tab Yes 50 Three Times A Day [facility] Insulin Aspart (Novolog) 100 Units/1 Ml Inj Insulin As part (Novolog) 100 Units/1 Ml Inj Yes [facility] Ipratropium/Albuterol Sulfate (Combivent Respimat Inha l Dunlow) 4 Gm Aer.w.adap Ipratropium/Albuterol Sulfate (Combivent Respimat Inhal Dun[place]) 4 Gm Aer.w.adap Yes 4 [facility] Omeprazole 40 Mg Capsule. Omeprazole 40 Mg Capsule. Yes 20 Daily@0600 [facility] Pioglitazone Hcl 45 Mg Tablet Pioglitazone Hcl 45 Mg Tablet Yes 15 Daily [facility] Pregabalin (Lyrica) 75 Mg Cap Pregabalin (Lyrica) 75 Mg Cap Yes 200 Three Times A Day [facility] Ropinirole Hcl 1 Mg Tablet Ropinirole Hcl 1 Mg Tablet Yes 1 Daily [facility] Temazepam 15 Mg Capsule Temazepam 15 Mg Capsule Yes 7. 5 [facility] Torsemide 20 Mg Tablet Torsemide 20 Mg Tablet Yes 20 Daily [facility] Trazodone Hcl 150 Mg Tablet Trazodone Hcl 150 Mg Tablet Yes 150 Daily [facility] Valsartan (Diovan) 160 Mg Tab Valsartan (Diovan) 160 Mg Tab Yes 320 Daily [facility] Vitamin B Complex & Vit C No.3 (B Complex With Vitamin C) 1 Each Capsule Vitamin B Complex & Vit C No.3 (B Complex With Vitamin C) 1 Each Capsule Yes [facility] Omeprazole 20 Mg Capsule., 20 Mg Oral Omeprazole 20 Mg Neil foley., 20 Mg Oral 2019-04-01 00:00:00 No 20 Daily [facility] Acetaminophen With Codeine (Tylenol With Codeine #3 Tablet) 1 Each Tablet, 300 Mg Oral Acetaminophen With Codeine (Tylenol With Codeine #3 Tablet) 1 Each Tablet, 300 Mg Oral 2019-03-24 00:00:00 No 300 Every 4 Hours as needed for Pain [facility] Acetaminophen With Codeine (Tylenol With Codeine #3 Tablet) 1 Each Tablet, 300 Mg Oral Acetaminophen With Codeine (Tylenol With Codeine #3 Tablet) 1 Each Tablet, 300 Mg Oral 2019-03-24 00:00:00 No 300 Every 6 Hours as needed for Mild Pain (1-3) Or Fever>100.8 [facility] Aspirin 81 Mg Tab.chew, 81 Mg Oral Aspirin 81 Mg Tab.chew, 81 Mg Oral 2019-03-24 00:00:00 No 81 Daily [facility] Clopidogrel Bisulfate (Plavix) 75 Mg Tablet, 75 Mg Ora l Clopidogrel Bisulfate (Plavix) 75 Mg Tablet, 75 Mg Oral 2019-03-24 00:00:00 No 75 Daily [facility] Gabapentin 400 Mg Capsule, 750 Mg Oral Gabapentin 400 Mg Capsule , 750 Mg Oral 2019-03-24 00:00:00 No 750 Twice A Day [facility] Hydralazine Hcl 25 Mg Tab, 50 Mg Oral Hydralazine Hcl 25 Mg Tab, 50 Mg Oral 2019-03-24 00:00:00 No 50 Three Times A Day [facility] Insulin Aspart (Novolog) 100 Unit/1 Ml Cartridge, 35 I nsulin Aspart (Novolog) 100 Unit/1 Ml Cartridge, 2019-03-24 00:00:00 No 35 [facility] Insulin Npl/Insulin Lispro (Humalog Mix 50-50 Vial) 10 0 Unit/1 Ml Vial, 35 Insulin Npl/Insulin Lispro (Humalog Mix 50-50 Vial) 100 Unit/1 Ml Vial, 2019-03-24 00:00:00 No 35 Three Times A Day [facility] Lisinopril 10 Mg Tablet, 20 Mg Oral Lisinopril 10 Mg Tablet, 20 Mg Oral 2019-03-24 00:00:00 No 20 Twice A Day [facility] Metoprolol Succinate 50 Mg Tab.er.24h, 100 Mg Oral Met oprolol Succinate 50 Mg Tab.er.24h, 100 Mg Oral 2019-03-24 00:00:00 No 100 Twice A Day [facility] Pregabalin (Lyrica) 25 Mg Cap, 25 Mg Oral Pregabalin ( Lyrica) 25 Mg Cap, 25 Mg Oral 2019-03-24 00:00:00 No 25 Daily [facility] Simvastatin 10 Mg Tablet, 10 Mg Oral Simvastatin 10 Mg Tablet, 1 0 Mg Oral 2019-03-24 00:00:00 No 10 Today At 9:00PM [facility] Lisinopril 10 Mg Tablet, 10 Mg Oral Lisinopril 10 Mg Tablet, 10 Mg Oral 2017-08-31 00:00:00 No 10 Daily [facility] Vital Signs Vital Name Observation Time Observation Value Comments Source Systolic blood pressure 2020-01-10 16:50:00 138 mm[Hg] [facility] Diastolic blood pressure 2020-01-10 16:50:00 76 mm[Hg] [facility] Heart rate 2020-01-10 16:50:00 81 /min [facility] Body temperature 2020-01-10 16:50:00 36.72 Gregoria [facility] Respiratory rate 2020-01-10 16:50:00 18 /min [facility] Body height 2020-01-10 16:50:00 165.1 cm [facility] Body weight Measured 2020-01-10 16:50:00 77.111 kg [facility] BMI 2020-01-10 16:50:00 28.29 kg/m2 [facility] Oxygen saturation in Arterial blood by Pulse oximetry 01-09 16:50:00 100 /min [facility] Procedures Procedure Date / Time Performed Performing Clinician [facility] e Computed tomography of chest with contrast 2019-08-02 00:00:00 KATARZYNA SANDOVAL [facility] EXCISION OF R FOOT SUBCU/FASCIA, OPEN APPROACH 2019-06-23 00:00: 00 REHANA FERNANDEZ [facility] DILATION OF RIGHT ANTERIOR TIBIAL ARTERY, PERC APPROACH 2019 00:00:00 ZHANNA ANAND [facility] DILATION OF RIGHT PERONEAL ARTERY, PERCUTANEOUS APPROACH 00:00:00 ZHANNA ANAND [facility] EXTIRPATION OF MATTER FROM R ANT TIB ART, PERC APPROACH 2019 00:00:00 ZHANNA ANAND [facility] EXTIRPATION OF MATTER FROM R PERONEAL ART, PERC APPROACH 202 00:00:00 ZHANNA ANAND [facility] FLUOROSCOPY OF AORTA, BI LE ART USING L OSM CONTRAST 2019-05 00:00:00 ZHANNA ANAND [facility] EXCISION OF LOWER ESOPHAGUS, ENDO, DIAGN 2019-06-17 00:00:00 JACKSON CHANI OZIEL [facility] EXCISION OF STOMACH, PYLORUS, ENDO, DIAGN 2019-06-17 00:00:00 DIOGO GALDAMEZ OZIEL [facility] Ultrasound, renal 2019-06-15 00:00:00 SANDRA ROONEY [facility] DETACHMENT AT RIGHT 4TH TOE, COMPLETE, OPEN APPROACH 2019-05 00:00:00 REBECCA [facility] EXCISION OF R FOOT SUBCU/FASCIA, OPEN APPROACH 2019-06-14 00:00: 00 REBECCA [facility] INSERTION OF INFUSION DEV INTO SUP VENA CAVA, PERC APPROACH 2019-06-14 00:00:00 ITZEL KAREN [facility] MRI lower extremity w/o dye 2019-06-13 00:00:00 LC HUITRON [facility] TRANSFUSE NONAUT RED BLOOD CELLS IN PERIPH VEIN, PERC 06-13 00:00:00 AMINAH ROBBINS [facility] CT of abdomen and pelvis without contrast 2019-06-11 00:00:00 ALEXIS POWELL [facility] US Abdomen limited 2019-06-09 00:00:00 NO AL [facility] X-ray of chest, single view 2019-06-08 00:00:00 MADI DUKE [facility] EXCISION OF DUODENUM, ENDO, DIAGN 2019-03-30 00:00:00 HARDY FARMER [facility] EXCISION OF STOMACH, ENDO, DIAGN 2019-03-30 00:00:00 PATSYDOMENICO Campbell [facility] INSERTION OF INFUSION DEV INTO SUP VENA CAVA, PERC APPROACH 2019-03-29 00:00:00 ITZEL [facility] ULTRASONOGRAPHY OF SUPERIOR VENA CAVA, GUIDANCE 2019-03-29 0 0:00:[address] [facility] CT of abdomen and pelvis without contrast 2019-03-27 00:00[facility] and pelvis without contrast 2019-03-24 00:00:00 DENZEL TOVAR [facility] Encounters Start Date/Time End Date/Time Encounter Type Admission Type [facility] Care Department Encounter ID Source 2019-08-02 17:30:00 2019-08-06 19:40:00 Discharged Inpatient [address] [facility] [id number] [facility] 2019-06-08 20:27:00 2019-06-26 22:01:00 Discharged Inpatient 1 [facility] [id number] [facility] 2019-03-25 13:10:00 2019-04-01 12:32:00 Discharged Inpatient 1 ITZEL [facility] [id number] [facility] 2018-12-01 18:06:00 2018-12-01 20:47:00 Departed Emergency Room [address] [facility] [id number] [facility] 2018-08-16 19:58:00 2018-08-18 15:04:00 Discharged Inpatient (obs) 1 ITZEL [facility] [id number] [facility] 2018-08-10 16:44:00 2018-08-10 17:54:[address] [facility] [id number] [facility] 2017-08-19 19:30:00 2017-08-31 15:38:00 Discharged Inpatient ER AMINAH ROBBINS [facility] [id number] [facility] Results Test Description Test Time Test Comments Results Result Comments Source Coronavirus (PCR) 2019-08-06 17:50:00 Test Item Coronavirus (PCR) (test code = Coronavirus (PCR)) NOT DETECTED NOTD ETECTED Testing was performed using the sunny (R) SARS-CoV-2 test. This test was develop ed and its performance characteristics determined by [employer]. This test has not been FDA cleared or approved. This test has been authorized for the duration of time the declaration that circumstances exist justifying the author ization of the emergency use of in vitro diagnostic tests for the detection of S ARS-CoV-2 virus and or diagnosis of COVID-19 infection under section 564 (b) (1) of the Act, 21 U.S.C. 360bbb-3 (b) (1), unless the authorization is terminated or revoked sooner.Test performed at [address] [address] [place], [place] [address]CHES SINGLE (PORTABLE)2019-08-06 11:49:00 [facility] [address] [place] [address] Patient Name: ANDREA HOOVER MR #: [id number] : 1960 Age/Sex: 59/F Req #: [id number] Adm Physician: DEIRDRE YIN MD Ordered by: NO AL MD Report #: [id number] Location: [facility] Room/Bed: [place] [address] Procedure: 0320-000 6 DX/CHEST SINGLE (PORTABLE) Exam Date: 08/06/19 Alex sosa Time: 1054 REPORT STATUS: Signed EXAMINATION: CHEST SINGLE (PORTABLE) INDICATION: Pre-operative COMPARISON: Chest radiograph 08/05/2019 FINDINGS: LINES/TUBES:Non e LUNGS:The lungs are well-inflated. No focal consolidation or pulmonary ed razia. PLEURA:No pleural effusion or pneumothorax. MEDIASTINUM:The cardi omediastinal silhouette appears normal in size and shape. BONES/SOFT TISSUE S:No acute osseous injury. ABDOMEN:No free air under the diaphragm. IMPRESSION: No focal pneumonia or pulmonary edema. Signed by: Juan alvarez MD on 08/06/2019 11:50 AM Dictated By: JUAN CRAWFORD MD Electronically Si gned By: JUAN CRAWFORD MD on 08/06/19 1150 Transcribed By: RUCHI on 08/06/19 115 0 COPY TO: NO AL MD, ABI Sodium [id number] 05:50:00* Test Item Value Reference Range Interpretation Comments Sodium Level (test code = 2951-2) 138 136-145 [facility] [id number] 05:50:00* Test Item Value Reference Range Interpretation Comments Potassium Level (test code = 2823-3) 3.6 3.5-5.1 [facility]loride [id number] 05:50:00* Test Item Value Reference Range Interpretation Comments Chloride Level (test code = 2075-0) 99 98-107 [facility]man[facility]bon Dioxide [id number] 05:50:00* Test Item Value Reference Range Interpretation Comments Carbon Dioxide Level (test code = 2028-9) 29 22-29 [facility]ion [id number] 05:50:00* Test Item Value Reference Range Interpretation Comments Anion Gap (test code = 56077-7) 13.6 8-16 [facility] Urea [id number] 05:50:00* Test Item Value Reference Range Interpretation Comments Blood Urea Nitrogen (test code = 3094-0) 29 7-26 H [facility]man[facility]inine2020-03-20 05:50:00* Test Item Value Reference Range Interpretation Comments Creatinine (test code = 2160-0) 1.51 0.57-1.11 H [facility]UN/Creatinine [id number] 05:50:00* Test Item Value Reference Range Interpretation Comments BUN/Creatinine Ratio (test code = 3097-3) 19 6-25 [facility] Glomerular Filtration Rate 2019-08-06 05:50:00* Test Item Value Reference Range Interpretation Comments Estimat Glomerular Filtration Rate (test code = 973458399) 43 >60 L Ranges were taken from the National Kidney Disease Education Program and the [facility] literature.Reference ranges:60 or greater: Bvdbxk32-32 ( for 3 consecutive months): Chronic kidney disease 15 or less: Kidney failureTexas Health KaufmanGlucose [id number] 05:50:00* Test Item Value Reference Range Interpretation Comments Glucose Level (test code = QXO4967) 210 74-118 H [facility]manCalcium [id number] 05:50:00* Test Item Value Reference Range Interpretation Comments Calcium Level (test code = 08379-5) 8.6 8.4-10.2 [facility] Blood [id number] 05:29:00* Test Item Value Reference Range Interpretation Comments White Blood Count (test code = 6690-2) 10.57 4.8-10.8 [facility] Blood [id number] 05:29:00* Test Item Value Reference Range Interpretation Comments Red Blood Count (test code = 789-8) 3.97 3.6-5.1 [facility]emoglobin2020-03-20 05:29:00* Test Item Value Reference Range Interpretation Comments Hemoglobin (test code = 14478-7) 10.8 12.0-16.0 L [facility]ematocrit2020-03-20 05:29:00* Test Item Value Reference Range Interpretation Comments Hematocrit (test code = 4544-3) 33.1 34.2-44.1 L [facility]manMean Corpuscular [id number] 05:29:00* Test Item Value Reference Range Interpretation Comments Mean Corpuscular Volume (test code = 787-2) 83.4 81-99 [facility]Mean Corpuscular [id number] 05:29:00* Test Item Value Reference Range Interpretation Comments Mean Corpuscular Hemoglobin (test code = 785-6) 27.2 28-32 L [facility]manMean Corpuscular Hemoglobin Concent 2019-08-06 05:29:00* Test Item Value Reference Range Interpretation Comments Mean Corpuscular Hemoglobin Concent (test code = 786-4) 32.6 31-35 [facility]man[facility] Cell Distribution [id number] 05:29:00* Test Item Value Reference Range Interpretation Comments Red Cell Distribution Width (test code = 83331-9) 16.5 11.7 -14.4 H [facility]aufmanPlatelet Gvodj1140-73-69 05:29:00* Test Item Value Reference Range Interpretation Comments Platelet Count (test code = 777-3) 486 140-360 H [facility]manNeutrophils (%) (Auto)2019-08-06 05:29:00 * Test Item Value Reference Range Interpretation Comments Neutrophils (%) (Auto) (test code = 90243-5) 54.8 38.7-80.0 [facility]manLymphocytes (%) (Auto)2019-08-06 05:29:00 * Test Item Value Reference Range Interpretation Comments Lymphocytes (%) (Auto) (test code = 736-9) 31.5 18.0-39.1 [facility]manMonocytes (%) (Auto)2019-08-06 05:29:00* Test Item Value Reference Range Interpretation Comments Monocytes (%) (Auto) (test code = 5905-5) 10.2 4.4-11.3 [facility]manEosinophils (%) (Auto)2019-08-06 05:29:00 * Test Item Value Reference Range Interpretation Comments Eosinophils (%) (Auto) (test code = 713-8) 2.4 0.0-6.0 [facility]manBasophils (%) (Auto)2019-08-06 05:29:00* Test Item Value Reference Range Interpretation Comments Basophils (%) (Auto) (test code = 706-2) 0.7 0.0-1.0 [facility]manIM GRANULOCYTES %2019-08-06 05:29:00* Test Item Value Reference Range Interpretation Comments IM GRANULOCYTES % (test code = IM GRANULOCYTES %) 0.4 0.0- 1.0 [facility]manNeutrophils # (Auto)2019-08-06 05:29:00* Test Item Value Reference Range Interpretation Comments Neutrophils # (Auto) (test code = 751-8) 5.8 2.1-6.9 [facility]manLymphocytes # (Auto)2019-08-06 05:29:00* Test Item Value Reference Range Interpretation Comments Lymphocytes # (Auto) (test code = 17197-1) 3.3 1.0-3.2 H [facility]manMonocytes # (Auto)2019-08-06 05:29:00* Test Item Value Reference Range Interpretation Comments Monocytes # (Auto) (test code = 742-7) 1.1 0.2-0.8 H [facility]manEosinophils # (Auto)2019-08-06 05:29:00* Test Item Value Reference Range Interpretation Comments Eosinophils # (Auto) (test code = 711-2) 0.3 0.0-0.4 [facility]manBasophils # (Auto)2019-08-06 05:29:00* Test Item Value Reference Range Interpretation Comments Basophils # (Auto) (test code = 704-7) 0.1 0.0-0.1 [facility]aufmanAbsolute Immature Granulocyte (auto 2019-08-06 05:29:00* Test Item Value Reference Range Interpretation Comments Absolute Immature Granulocyte (auto (gretchen t code = Absolute Immature Granulocyte (auto) 0.04 0-0.1 [facility]aufmanUrine Legionella Igmevea7397-40-82 22:06:00* Test Item Value Reference Range Interpretation Comments Urine Legionella Antigen (test code = 73994-4) Negative Negativ e Presumptive negative for L. pneumophila serogroup 1 antigenin urine, suggesting no recent or current infection.Legionnaires' disease cannot be ruled out since o therserogroups and species may also cause disease.Performed at: - [facility] [address] [place], [place] [id number] Director: Nikky Calle MD, Phone: [phone] [facility] FriscoBlood Culture 2019-08-05 16:05:00* Test Item Value Reference Range Interpretation Comments Blood Culture (test code = 03208111) NO GROWTH AFTER 72 HOURS [facility]iscoCHEST SINGLE ([facility]ABLE)2019-08-05 11:19:00 [place] [address] Patient Name: ANDREA HOOVER MR #: [id number] : 1960 Age/Sex: 59/F Req #: [id number] Adm Physician: DEIRDRE YIN MD Ordered by: ON AL MD Report #: [id number] Location: [facility] Room/Bed: [place] [address] Procedure: 0319-000 2 DX/CHEST SINGLE (PORTABLE) Exam Date: Exam Time: REPORT STATUS: Signed EXAMINATI ON: CHEST SINGLE (PORTABLE) INDICATION: Pneumonia COMPARISON: [facility] radiograph 08/03/2019 FINDINGS: LINES/TUBES:None LUNGS:The lungs are moderately inflated. Interval improvement in hazy bilateral airspac e opacities. PLEURA:No pleural effusion or pneumothorax. MEDIASTINUM:T he cardiomediastinal silhouette appears unchanged in size and shape. BONE S/SOFT TISSUES:No acute osseous injury. ABDOMEN:No free air under the diaph ragm. IMPRESSION: Interval improvement in bilateral right greater flaco n left hazy airspace opacities. Signed by: Juan Crawford MD on 08/05/2019 11 :21 AM Dictated By: JUAN CRAWFORD MD 20 Transcribed By: RUCHI on 08/05/191120 COPY TO: NO MILES MD, [facility] C-Reactive Akttbqz2981-08-28 11:18:00* Test Item Value Reference Range Interpretation Comments C-Reactive Protein (test code = 1988-5) 188 0-10 H Performed at: - [facility] [id number] Director: Manjeet Pritchard MD, Phone: [phone] Health KaufmanPhosphorus Hlfnl0698-97-06 09:10:00* Test Item Value Reference Range Interpretation Comments Phosphorus Level (test code = GIH7427) 4.2 2.3-4.7 [facility]manMagnesium Wxgjs4039-59-05 09:10:00* Test Item Value Reference Range Interpretation Comments Magnesium Level (test code = 83668-3) 1.8 1.3-2.1 [facility]manBedside Yxovywo8021-12-54 07:00:00* Test Item Value Reference Range Interpretation Comments Bedside Glucose (test code = 66844-1) 284 70-120 H Meter ID: [id number] Health KaufmanCHEST SINGLE (PORTABLE)2019-08-03 09:11:00 [place] [address] Patient Name: ANDREA HOOVER MR #: [id number] : 1960 Age/Sex: 59/F Req #: [id number] Adm Physician: DEIRDRE YIN MD Ordered by: NO AL MD Report #: [id number] Location: ICU Room/Bed: ICU [facility] Procedure: 0317-000 4 DX/CHEST SINGLE (PORTABLE) Exam Date: 08/03/19 Alex sosa Time: 629 REPORT STATUS: Signed EXAM: CHEST SINGLE (PORTABLE) INDICATION: CHF COMPARISON: 0 IMPRESSION: Lines and hardware: None Heart: Stable. Lungs and pleur a: Stable right lung multifocal patchy airspace opacities, most prominent in t he middle and lower lung zones. Retrocardiac patchy airspace opacity. Small la yering bilateral pleural effusions. No pneumothorax. Bones: No acute abnormal ity. Signed by: Bert Case MD on 08/03/2019 9:13 AM Dictated By: Jackie CASE DO 2 Transcribed By: RUCHI on 08/03/19912 COPY TO: NO AL MD, AB IM Erythrocyte Sedimentation Ldwz1284-00-65 05:55:00* Test Item Value Reference Range Interpretation Comments Erythrocyte Sedimentation Rate (test code = 4537-7) 99 0- 20 H [facility]aufmanLactic Acid Zpxcn3667-50-49 05:50:00* Test Item Value Reference Range Interpretation Comments Lactic Acid Level (test code = Lactic Acid Level) 0.8 0.5- 2.0 [facility]aufmanArterial Blood mM8257-44-86 17:59:00* Test Item Value Reference Range Interpretation Comments Arterial Blood pH (test code = 2744-1) 7.40 7.31-7.41 [facility]manArterial Blood Partial Pressure CO2 2019-08-02 17:59:00* Test Item Value Reference Range Interpretation Comments Arterial Blood Partial Pressure CO2 (test code = 2019-8) 34 41-51 L [facility]manArtergrand lake [facility] Blood EPW81074-87-03 17:59:00* Test Item Value Reference Range Interpretation Comments Arterial Blood HCO3 (test code = 1960-4) 21 23-28 L [facility]aufmanArterial Blood Base Rnbivb6284-26-98 17:59:00* Test Item Value Reference Range Interpretation Comments Arterial Blood Base Excess (test code = 1925-7) -4.0 -2-3 L [facility]aufmanFiO22020-03-16 17:59:00* Test Item Value Reference Range Interpretation Comments FiO2 (test code = FiO2) 50 12/6. 14,50%[facility] KaufmanCT CHEST U9329-63-59 17:22:00 [facility] [address] [place] [address] Patient Name: ANDREA HOOVER MR #: [id number] : 1959 Age/Sex: 59/F Req #: [id number] Adm Physician: DEIRDRE YIN MD Ordered by: KATARZYNA MOSQUERA DO Report #: [id number] Location: [facility] Room/Bed: [place] [address] Procedure: CT/CT CHEST W Exam Date: 08/02/19 Exam Time: 1700 REPORT STATUS: Signed EXAM: CT Chest WITH contrast- Pulmonary Embolism Protocol INDICATION: Shortness of b reath, cough COMPARISON: Chest radiograph earlier the same day TECHNI QUE: Chest was scanned utilizing a multidetector helical scanner from the lung apex through the level of the diaphragm after administration of IV contrast. Thin section reconstructions were obtained with special concentration on the pulmonary arteries. Coronal and sagittal reformations were obtained. Pulmonary embolism protocol was performed. IV CONTRAST: 100 cc of Isovue 37 0 RADIATION DOSE: Total DLP: 510 mGy*cm Dose modul ation, iterative reconstruction, and/or weight based adjustment of the mA/kV w as utilized to reduce the radiation dose to as low as reasonably achievable. COMPLICATIONS: None FINDINGS: LINES/ TUBES: None. PULMONARY ARTERIES: No filling defect is identified within the pulmonary magnus zoltan to the segmental level. The subsegmental pulmonary arteries are not well opacified. Main pulmonary artery measures 2.7 cm in diameter. LUNGS AND AIR WAYS: The central airways are patent. Multifocal groundglass and consolidative opacities involving the right upper lobe, right middle lobe and right lower l obe. Bilateral lower lobe dependent subsegmental atelectasis. PLEURA: Small left pleural effusion. Moderate right pleural effusion. HEART AND MEDIASTI NUM: The thyroid gland is normal. No supraclavicular or axillary lymphadenopa thy. Prominent mediastinal lymph nodes not meet size criteria for lymphadenopa thy. Right hilar lymphadenopathy measures up to 1.4 cm short axis. The heart i s not enlarged. No pericardial effusion. Scattered atherosclerotic calcificati ons of the coronary arteries. UPPER ABDOMEN: Hepatomegaly with marked enlar gement of the left liver with air is a heterogeneous area concerning for under lying mass lesion. BONES: No acute osseous injury. Chronic degenerative/pos ttraumatic changes of the left sternoclavicular junction. SOFT TISSUES: U nremarkable. IMPRESSION: No pulmonary embolism. Multifocal consolid ation involving the right upper, middle and lower lobes consistent with multif ocal pneumonia. Signed by: Juan Crawford MD on 08/02/2019 5:31 PM Dicta eliecer By: JUAN CRAWFORD MD 30 Transcribed By: RUCHI on 08/02/191730 COPY TO: KATARZYNA MOSQUERA DO Total Uombvlixy3023-27-69 14:56:00* Test Item Value Reference Range Interpretation Comments Total Bilirubin (test code = 1975-) 0.6 0.2-1.2 [facility]aufmanAspartate Amino Transf (AST/SGOT) 2019-08-02 14:56:00* Test Item Value Reference Range Interpretation Comments Aspartate Amino Transf (AST/SGOT) (test code = Aspartate Amino Transf (AST/SGOT)) 15 5-34 [facility]aufmanAlanine Aminotransferase (ALT/SGPT) 2019-08-02 14:56:00* Test Item Value Reference Range Interpretation Comments Alanine Aminotransferase (ALT/SGPT) (test code = 1742-6) 25 0-55 [facility]manTotal Yzkaapv3401-56-78 14:56:00* Test Item Value Reference Range Interpretation Comments Total Protein (test code = 2885-2) 7.3 6.5-8.1 [facility]aufmanAlbumin2020-03-16 14:56:00* Test Item Value Reference Range Interpretation Comments Albumin (test code = 1751-7) 3.1 3.5-5.0 L [facility]manGlobulin2020-03-16 14:56:00* Test Item Value Reference Range Interpretation Comments Globulin (test code = 59274-8) 4.2 2.3-3.5 H [facility]aufmanAlbumin/Globulin Xfafo8297-66-52 14:56:00 * Test Item Value Reference Range Interpretation Comments Albumin/Globulin Ratio (test code = 1759-0) 0.7 0.8-2.0 L [facility]aufmanAlkaline Ofmnfjfaudp9246-69-74 14:56:00* Test Item Value Reference Range Interpretation Comments Alkaline Phosphatase (test code = 6768-6) 140 40-150 [facility] KaufmanB-Type Natriuretic Voatjdt7764-73-19 14:56:00* Test Item Value Reference Range Interpretation Comments B-Type Natriuretic Peptide (test code = 07967-2) 272.4 0-100 H [facility] KaufmanCreatine Meolvi4248-39-91 14:56:00* Test Item Value Reference Range Interpretation Comments Creatine Kinase (test code = 2157-6) 97 29-168 [facility]manCreatine Kinase YL7618-57-02 14:56:00* Test Item Value Reference Range Interpretation Comments Creatine Kinase MB (test code = 58824-3) 1.80 0-5.0 [facility]manTroponin E9047-85-65 14:56:00* Test Item Value Reference Range Interpretation Comments Troponin I (test code = CVM1077) 0.018 0-0.300 [facility]manInfluenza Virus Types A,B Antigen 2019-08-02 14:38:00* Test Item Value Reference Range Interpretation Comments Influenza Virus Types A,B Antigen (test code = 07026-9) NEGATIVE NEGATIVE [facility]manCHES SINGLE (PORTABLE)2019-08-02 14:03:00 [place] [address] Patient Name: ANDREA HOOVER MR #: [id number] : 1960 Age/Sex: 59/F Req #: [id number] Adm Physician: Ordered by: KATARZYNA MOSQUERA DO Report #: [id number] Location: ER Room/Bed: Procedure: [id number] 9 DX/CHEST SINGLE (PORTABLE) Exam Date: 08/02/19 Alex sosa Time: 1322 REPORT STATUS: Signed EXAMINATION: CHEST SINGLE (PORTABLE) INDICATION: Shortness of breat h COMPARISON: Multiple prior chest are graft, most recently 06/24/2019 FINDINGS: LINES/TUBES:None LUNGS:The lungs are moderately inflated . There is perihilar fullness and indistinctness of the pulmonary vasculature. Interval development of increased airspace opacities at the right lower lobe and right middle lobe and to a lesser extent left lower lobe. PLEURA:No p leural effusion or pneumothorax. MEDIASTINUM:The cardiomediastinal silhouet te appears unchanged in size and shape. BONES/SOFT TISSUES:No acute osseo us injury. ABDOMEN:No free air under the diaphragm. IMPRESSION: Interval increase in airspace opacities at the right middle lobe, right lower lobe, and to a lesser extent left lower lobe. This may reflect air space edema however superimposed pneumonia could also have this appearance in the proper clinical setting. Signed by: Juan Crawford MD on 08/02/2019 2:06 PM Dic tated By: JUAN CRAWFORD MD 140 6 Transcribed By: RUCHI on 08/02/19 1406 COPY TO: KATARZYNA MOSQUERA DO Bedside Awvezyy9936-00-58 19:19:00* Test Item Value Reference Range Interpretation Comments Bedside Glucose (test code = 64547-8) 200 70-120 H Meter ID: [id number] Mother Frances Hospital – Sulphur SpringsHemoglobin2020-02-08 16:45:00* Test Item Value Reference Range Interpretation Comments Hemoglobin (test code = 45949-7) 7.9 12.0-16.0 L [facility]manHematocrit2020-02-08 16:45:00* Test Item Value Reference Range Interpretation Comments Hematocrit (test code = 4544-3) 24.8 34.2-44.1 L [facility] Worthodium Scnex7548-42-59 06:19:00* Test Item Value Reference Range Interpretation Comments Sodium Level (test code = 2951-2) 136 136-145 [facility]manPotassium Dhdej4812-74-43 06:19:00* Test Item Value Reference Range Interpretation Comments Potassium Level (test code = 2823-3) 4.2 3.5-5.1 [facility]manChloride Inhms8597-18-19 06:19:00* Test Item Value Reference Range Interpretation Comments Chloride Level (test code = 2075-0) 102 98-107 [facility] KaufmanCarbon Dioxide Yugps5703-55-15 06:19:00* Test Item Value Reference Range Interpretation Comments Carbon Dioxide Level (test code = 2028-9) 24 22-29 [facility]manAnion Lqo5259-39-60 06:19:00* Test Item Value Reference Range Interpretation Comments Anion Gap (test code = 93539-5) 14.2 8-16 [facility]aufmanBlood Urea Kfgmnrzk6437-93-15 06:19:00* Test Item Value Reference Range Interpretation Comments Blood Urea Nitrogen (test code = 3094-0) 13 7-26 [facility]manCreatinine2020-02-07 06:19:00* Test Item Value Reference Range Interpretation Comments Creatinine (test code = 2160-0) 1.37 0.57-1.11 H [facility] KaufmanBUN/Creatinine Weayl0411-61-79 06:19:00* Test Item Value Reference Range Interpretation Comments BUN/Creatinine Ratio (test code = 3097-3) 9 6-25 [facility] KaufmanEstimat Glomerular Filtration Rate 2019-06-25 06:19:00* Test Item Value Reference Range Interpretation Comments Estimat Glomerular Filtration Rate (test code = 136896038) 48 >60 L Ranges were taken from the National Kidney Disease Education Program and the [facility] literature.Reference ranges:60 or greater: Nrgvzg29-31 ( for 3 consecutive months): Chronic kidney disease 15 or less: Kidney failureTexas Health KaufmanGlucose Yjbhk2523-84-66 06:19:00* Test Item Value Reference Range Interpretation Comments Glucose Level (test code = QTJ1751) 218 74-118 H [facility]aufmanCalcium Rpann3255-39-99 06:19:00* Test Item Value Reference Range Interpretation Comments Calcium Level (test code = 38486-6) 8.1 8.4-10.2 L [facility] KaufmanWhite Blood Rhcrb5062-32-71 05:58:00* Test Item Value Reference Range Interpretation Comments White Blood Count (test code = 6690-2) 13.65 4.8-10.8 H [facility] KaufmanRed Blood Ogruy7593-88-73 05:58:00* Test Item Value Reference Range Interpretation Comments Red Blood Count (test code = 789-8) 2.65 3.6-5.1 L [facility] KaufmanMean Corpuscular Yrevcd4226-34-64 05:58:00* Test Item Value Reference Range Interpretation Comments Mean Corpuscular Volume (test code = 787-2) 84.9 81-99 [facility]manMean Corpuscular Pdcmxenkfb5720-13-29 05:58:00* Test Item Value Reference Range Interpretation Comments Mean Corpuscular Hemoglobin (test code = 785-6) 26.4 28-32 L [facility] KaufmanMean Corpuscular Hemoglobin Concent 2019-06-25 05:58:00* Test Item Value Reference Range Interpretation Comments Mean Corpuscular Hemoglobin Concent (test code = 786-4) 31.1 31-35 [facility] KaufmanRed Cell Distribution Inigs9140-02-89 05:58:00* Test Item Value Reference Range Interpretation Comments Red Cell Distribution Width (test code = 61676-9) 16.6 11.7 -14.4 H [facility] KaufmanPlatelet Rurku4955-47-94 05:58:00* Test Item Value Reference Range Interpretation Comments Platelet Count (test code = 777-3) 418 140-360 H [facility]aufmanNeutrophils (%) (Auto)2019-06-25 05:58:00 * Test Item Value Reference Range Interpretation Comments Neutrophils (%) (Auto) (test code = 91721-0) 66.4 38.7-80.0 [facility]aufmanLymphocytes (%) (Auto)2019-06-25 05:58:00 * Test Item Value Reference Range Interpretation Comments Lymphocytes (%) (Auto) (test code = 736-9) 18.3 18.0-39.1 [facility]manMonocytes (%) (Auto)2019-06-25 05:58:00* Test Item Value Reference Range Interpretation Comments Monocytes (%) (Auto) (test code = 5905-5) 13.2 4.4-11.3 H [facility]manEosinophils (%) (Auto)2019-06-25 05:58:00 * Test Item Value Reference Range Interpretation Comments Eosinophils (%) (Auto) (test code = 713-8) 1.4 0.0-6.0 [facility]manBasophils (%) (Auto)2019-06-25 05:58:00* Test Item Value Reference Range Interpretation Comments Basophils (%) (Auto) (test code = 706-2) 0.2 0.0-1.0 [facility] KaufmanIM GRANULOCYTES %2019-06-25 05:58:00* Test Item Value Reference Range Interpretation Comments IM GRANULOCYTES % (test code = IM GRANULOCYTES %) 0.5 0.0- 1.0 [facility]manNeutrophils # (Auto)2019-06-25 05:58:00* Test Item Value Reference Range Interpretation Comments Neutrophils # (Auto) (test code = 751-8) 9.1 2.1-6.9 H [facility]aufmanLymphocytes # (Auto)2019-06-25 05:58:00* Test Item Value Reference Range Interpretation Comments Lymphocytes # (Auto) (test code = 49720-6) 2.5 1.0-3.2 [facility]manMonocytes # (Auto)2019-06-25 05:58:00* Test Item Value Reference Range Interpretation Comments Monocytes # (Auto) (test code = 742-7) 1.8 0.2-0.8 H [facility]manEosinophils # (Auto)2019-06-25 05:58:00* Test Item Value Reference Range Interpretation Comments Eosinophils # (Auto) (test code = 711-2) 0.2 0.0-0.4 [facility]manBasophils # (Auto)2019-06-25 05:58:00* Test Item Value Reference Range Interpretation Comments Basophils # (Auto) (test code = 704-7) 0.0 0.0-0.1 [facility] KaufmanAbsolute Immature Granulocyte (auto 2019-06-25 05:58:00* Test Item Value Reference Range Interpretation Comments Absolute Immature Granulocyte (auto (gretchen t code = Absolute Immature Granulocyte (auto) 0.07 0-0.1 [facility]manCHEST SINGLE (PORTABLE)2019-06-24 16:57:00 [facility] [address] [place] [address] Patient Name: ANDREA HOOVER MR #: [id number] : 1960 Age/Sex: 59/F Req #: [id number] Adm Physician: AMINAH ROBBINS MD Ordered by: ANNIE SINGLETON NEUROSURGERY PHYSICIAN Report #: [id number] Location: MED/SURG2 Room/Bed: [facility] Procedure: [id number] DX/CHEST SINGLE (PORTABLE) Exam Date: 06/24/19 Exam Time: 1630 REPORT STATUS: Signed EXAMINATION: CHEST SINGLE (PORTABLE) INDICATION: Fever COMPARIS ON: Chest radiograph 06/21/2019 FINDINGS: LINES/TUBES:EKG leads ove rlie the chest. Right PICC line terminates in the SVC. LUNGS:The lung volum es remain low. There is perihilar fullness and indistinctness of the pulmonary vasculature. Unchanged patchy bibasilar opacities. PLEURA:Small right pl eural effusion. No pneumothorax. MEDIASTINUM:Cardiomediastinal silhouette i s stably enlarged. Atherosclerotic calcifications of the thoracic aorta. BONES/SOFT TISSUES:No acute osseous injury. ABDOMEN:No free air under the d iaphragm. IMPRESSION: Unchanged cardiomegaly and pulmonary edema. Sma ll right pleural effusion. Low lung volumes. Bibasilar patchy opacities, mo re likely subsegmental atelectasis than superimposed aspiration or pneumonia. Signed by: Juan Crawford MD on 06/24/2019 4:59 PM Dictated By: JUAN Alvarez MD 58 Transcribed By: RUCHI on 06/24/191658 COPY TO: ANNIE SINGLETON NP Differential Total Cells Ggjgomh5709-75-41 08:00:00* Test Item Value Reference Range Interpretation Comments Differential Total Cells Counted (test code = Differen tial Total Cells Counted) 100 [facility]manNeutrophils % (Manual)2019-06-23 08:00:00 * Test Item Value Reference Range Interpretation Comments Neutrophils % (Manual) (test code = 27764-2) 68 40-74 [facility]manLymphocytes % (Manual)2019-06-23 08:00:00 * Test Item Value Reference Range Interpretation Comments Lymphocytes % (Manual) (test code = 737-7) 17 19-48 [facility] CenterMonocytes % (Manual)2019-06-23 08:00:00* Test Item Value Reference Range Interpretation Comments Monocytes % (Manual) (test code = 744-3) 13 3.4-9.0 H [facility]manEosinophils % (Manual)2019-06-23 08:00:00 * Test Item Value Reference Range Interpretation Comments Eosinophils % (Manual) (test code = 714-6) 2 0-7 [facility]aufmanPlatelet Ytligmzw0753-11-56 08:00:00* Test Item Value Reference Range Interpretation Comments Platelet Estimate (test code = 95368-6) ADEQUATE [facility] KaufmanPlatelet Morphology Ojkqkbp2682-77-46 08:00:00* Test Item Value Reference Range Interpretation Comments Platelet Morphology Comment (test code = 21026-0) NORMAL [facility]aufmanRed Cell Morphology Vnpxjnx7296-05-99 08:00:00* Test Item Value Reference Range Interpretation Comments Red Cell Morphology Comment (test code = 6742-1) NORMAL [facility]aufmanDifferential Total Cells Counted 2019-06-23 08:00:00* Test Item Value Reference Range Interpretation Comments Differential Total Cells Counted (test code = Differkenna tial Total Cells Counted) 100 [facility]manNeutrophils % (Manual)2019-06-23 08:00:00 * Test Item Value Reference Range Interpretation Comments Neutrophils % (Manual) (test code = 03271-0) 68 40-74 [facility]manLymphocytes % (Manual)2019-06-23 08:00:00 * Test Item Value Reference Range Interpretation Comments Lymphocytes % (Manual) (test code = 737-7) 17 19-48 L [facility]manMonocytes % (Manual)2019-06-23 08:00:00* Test Item Value Reference Range Interpretation Comments Monocytes % (Manual) (test code = 744-3) 13 3.4-9.0 H [facility]manEosinophils % (Manual)2019-06-23 08:00:00 * Test Item Value Reference Range Interpretation Comments Eosinophils % (Manual) (test code = 714-6) 2 0-7 [facility]aufmanPlatelet Vxrhbufi3034-88-97 08:00:00* Test Item Value Reference Range Interpretation Comments Platelet Estimate (test code = 51903-8) ADEQUATE [facility] KaufmanPlatelet Morphology Ypxzhio1276-41-10 08:00:00* Test Item Value Reference Range Interpretation Comments Platelet Morphology Comment (test code = 69019-4) NORMAL [facility]aufmanRed Cell Morphology Fvrltnd3895-47-21 08:00:00* Test Item Value Reference Range Interpretation Comments Red Cell Morphology Comment (test code = 6742-1) NORMAL [facility]aufmanTotal Yubenkxzp0211-26-51 06:01:00* Test Item Value Reference Range Interpretation Comments Total Bilirubin (test code = 1975-2) 0.2 0.2-1.2 [facility] KaufmanAspartate Amino Transf (AST/SGOT) 2019-06-23 06:01:00* Test Item Value Reference Range Interpretation Comments Aspartate Amino Transf (AST/SGOT) (test code = Aspartate Amino Transf (AST/SGOT)) 14 5-34 [facility] ([facility]/SGPT) 2019-06-23 06:01:00* Test Item Value Reference Range Interpretation Comments Alanine Aminotransferase (ALT/SGPT) (test code = 1742-6) 15 0-55 [facility] Trwucbw8080-00-38 06:01:00* Test Item Value Reference Range Interpretation Comments Total Protein (test code = 2885-2) 6.0 6.5-8.1 L [facility]Albumin2020-02-05 06:01:00* Test Item Value Reference Range Interpretation Comments Albumin (test code = 1751-7) 2.2 3.5-5.0 L [facility]manGlobulin2020-02-05 06:01:00* Test Item Value Reference Range Interpretation Comments Globulin (test code = 24294-0) 3.8 2.3-3.5 H [facility]manAlbumin/Globulin Pggzj9601-08-90 06:01:00 * Test Item Value Reference Range Interpretation Comments Albumin/Globulin Ratio (test code = 1759-0) 0.6 0.8-2.0 L [facility]manAlkaline Aegqggmxyrh5975-74-17 06:01:00* Test Item Value Reference Range Interpretation Comments Alkaline Phosphatase (test code = 6768-6) 120 40-150 [facility] SINGLE ([facility]ABLE)2019-06-21 13:16:00 [facility] [address] [place] [address] Patient Name: ANDREA HOOVER MR #: [id number] : 1960 Age/Sex: 59/F Req #: [id number] Adm Physician: AMINAH ROBBINS MD Ordered by: ANNIE SINGLETON NEUROSURGERY PHYSICIAN Report #: [id number] Location: [facility]/SURG Room/Bed: [facility] Procedure: 1313-2014 DX/CHEST SINGLE (PORTABLE) Exam Date: 06/21/19 Exam Time: 1250 REPORT STATUS: Signed EXAMINATION: CHEST SINGLE (PORTABLE) INDICATION: Pulmonary edema COMPARISON: Chest radiograph 06/14/2019 FINDINGS: LINES/TUBES:Ri ght PICC line terminates in the SVC. EKG leads overlie the chest. LUNGS:The lungs are moderately inflated. There is perihilar fullness and indistinctness of the pulmonary vasculature. Bibasilar patchy opacities. PLEURA:Small rig ht pleural effusion. No pneumothorax. MEDIASTINUM:Cardiomediastinal silhoue tte is stably enlarged. BONES/SOFT TISSUES:No acute osseous injury. AB DOMEN:No free air under the diaphragm. IMPRESSION: Cardiomegaly and p ulmonary edema. Small right pleural effusion. Bibasilar patchy opaciti es right greater than left, likely subsegmental atelectasis. Signed by: Shannan Crawford MD on 06/21/2019 1:29 PM Dictated By: JUAN CRAWFORD MD Electronica lly Signed By: JUAN CRAWFORD MD on 06/21/19 1329 Transcribed By: RUCHI on 1328 COPY TO: ANNIE SINGLETON NP B-Type Natriuretic Peptide 2019-06-19 07:01:00* Test Item Value Reference Range Interpretation Comments B-Type Natriuretic Peptide (test code = 99895-3) 147.2 0-100 H [facility]iscoGASTR[facility] GGOKWDHM0472-91-73 19:26:00 [facility] [address] [place] [address] Patient Name: ANDREA HOOVER MR #: [id number] : 1960 Age/Sex: 59/F Req #: [id number] Adm Physician: AMINAH ROBBINS MD Ordered by: OZIEL MCCANN MD Report #: [id number] Location: MED/SURG2 Room/Bed: [facility] Procedure: [id number] NM/GASTRIC EMPTYING Exam Date: 06/17/19 Exam Time: 1440 REPORT STATUS: Signed Solid -phase gastric emptying study Reason for examination: Abdominal pain T he protocol used for this study is based on the Consensus Recommendations for Gastric Scintigraphy by the [place] [employer] Society and the Society of Nuclear Medicine. Clinical information: The patient is diabetic; blood sugar today is 200 mg/dL. The patient has not had prior cortes rointestinal surgery other than cholecystectomy 3 years ago. The patient is n ot on any medications expected to affect gastric motility. The patient has be en fasting for at least 6 hours prior to this exam. Radiopharmaceutical: Tc-99m sulfur colloid 1 mCi Report: The radiopharmaceutical was added to [employer] Enlive 8 ounces. The patient was able to take the liquid meal. Images were obtained of the abdomen in the anterior and posterior projections at 10 m inutes post the meal and at 1, 2, 3, and 4 hours. Uptake was determined from the geometric mean of the anterior and posterior counts and the counts were co rrected for decay of the radiolabel. The percent gastric retention of the labeled meal at: 1 hour was 82% (normal 30-90%) 2 hours was 52% (normal <60%) 3 hours was 42% (normal <30%) 4 hours was 13% (normal <10%) Impression: Mildly prolonged gastric emptying pattern. Findings are compatible with mild gastroparesis. Signed by: Dr. Mima Pinedo M.D. on 06/17/2019 7:30 PM Dictated By: MIMA PINEDO MD 29 Transcribed By: RUCHI on 06/17/191929 COPY TO: OZIEL MCCANN MD Wound Fmbjosh3492-27-18 12:10:00 * Test Item Value Reference Range Interpretation Comments Wound Culture (test code = 6462-6) No Result Data Provided [facility] Iesmhjd7063-69-23 12:10:00* Test Item Value Reference Range Interpretation Comments Wound Culture (test code = 6462-6) No Result Data Provided [facility]manU[facility] Random Total Qnapdeu7013-18-38 11:38:00* Test Item Value Reference Range Interpretation Comments Urine Random Total Protein (test code = 2888-6) 152.4 1-14 H [facility]man[facility] Wajgsivsrk3087-28-38 11:38:00* Test Item Value Reference Range Interpretation Comments Urine Creatinine (test code = 2161-8) 26.66 47-110 L [facility]manUrine Protein/Creatinine Hzwaw3279-38-20 11:38:00* Test Item Value Reference Range Interpretation Comments Urine Protein/Creatinine Ratio (test code = 88786-8) 5.00 [facility]man[facility] Random Total Sjklelj4896-87-79 11:38:00* Test Item Value Reference Range Interpretation Comments Urine Random Total Protein (test code = 2888-6) 152.4 1-14 H [facility]man[facility] Mcpjnbdplt7905-39-96 11:38:00* Test Item Value Reference Range Interpretation Comments Urine Creatinine (test code = 2161-8) 26.66 47-110 L [facility]manUrine Protein/Creatinine Okolw6514-38-96 11:38:00* Test Item Value Reference Range Interpretation Comments Urine Protein/Creatinine Ratio (test code = 55376-9) 5.00 [facility]manC-Reactive Qkushma3820-01-41 22:26:00* Test Item Value Reference Range Interpretation Comments C-Reactive Protein (test code = 1988-5) 305 0-10 H Performed at: [facility] Lab[address] [id number] Director: Manjeet Pritchard MD, Phone: [phone] Health KaufmanMyelocytes %2019-06-15 18:51:00* Test Item Value Reference Range Interpretation Comments Myelocytes % (test code = 749-2) 2 0-0 H [facility]aufmanReactive Eqphkrjrajm6344-70-23 18:51:00* Test Item Value Reference Range Interpretation Comments Reactive Lymphocytes (test code = 17412-7) 5 [facility]manHypochromasia2020-01-28 18:51:00* Test Item Value Reference Range Interpretation Comments Hypochromasia (test code = 728-6) MODERATE [facility]manMyelocytes %2019-06-15 18:51:00* Test Item Value Reference Range Interpretation Comments Myelocytes % (test code = 749-2) 2 0-0 H [facility]aufmanReactive Hahodedfvzt7792-20-06 18:51:00* Test Item Value Reference Range Interpretation Comments Reactive Lymphocytes (test code = 10359-1) 5 [facility]aufmanHypochromasia2020-01-28 18:51:00* Test Item Value Reference Range Interpretation Comments Hypochromasia (test code = 728-6) MODERATE [facility] KaufmanUS RENAL RETROPERITONEAL HWBJ8172-72-30 17:46:00 [facility] [address] [address] Patient Name: ANDREA HOOVER MR #: [id number] : 1960 Age/Sex: 59/F Req #: [id number] Adm Physician: AIMNAH ROBBINS MD Ordered by: NEVIN IGNACIO, SANDRA IGNACIO Report #: [id number] Location: [facility] Room/Bed: [facility] Procedure: [id number] US/US RENAL RETROPERITONEAL COMP Exam Date: 06/15/19 Exam Time: 1705 REPORT STATUS: Si gned EXAM: Renal Ultrasound INDICATION: MEGHANN [id number] COMPARISON: None TECHNIQUE: Transverse and longitudinal images of the kid neys and bladder were obtained. FINDINGS: Right Kidney: Le ngth: 10.7 cm Appearance: Normal echogenicity. Collecting system: No hydro nephrosis Stones: None Cyst/Mass: None Left Kidney: Length: 12.7 cm Appearance: Normal echogenicity. Collecting system: No hydronephrosis St ones: None Cyst/Mass: Lower pole exophytic simple cyst measures up to 1.3 cm. Bladder: Distended bladder. No mass or calculi. Bilateral ureteral jets seen. Prevoid volume estimate of 619cc. IMPRESSION: No renal calculi or hydronephrosis. Left lower pole simple cyst. Distended bladder. Signed by: Juan Crawford MD on 06/15/2019 5:48 PM Dictated By: JUAN CRAWFORD MD 47 Transcribed By: PASHA FLEMING on 06/15/191747 COPY TO: SANDRA ROONEY Direct Bilirubin 2019-06-15 16:23:00* Test Item Value Reference Range Interpretation Comments Direct Bilirubin (test code = 20979-1) 0.2 0.0-0.5 [facility]manAmylase Eojyu8763-60-72 16:23:00* Test Item Value Reference Range Interpretation Comments Amylase Level (test code = 1798-8) 36 25-125 [facility]manLipase2020-01-28 16:23:00* Test Item Value Reference Range Interpretation Comments Lipase (test code = 3040-3) [facility]manDirect Cwueknprk7200-21-56 16:23:00* Test Item Value Reference Range Interpretation Comments Direct Bilirubin (test code = 85154-2) 0.2 0.0-0.5 [facility]aufmanAmylase Ztrkx1034-68-02 16:23:00* Test Item Value Reference Range Interpretation Comments Amylase Level (test code = 1798-8) 36 25-125 [facility]manLipase2020-01-28 16:23:00* Test Item Value Reference Range Interpretation Comments Lipase (test code = 3040-3) [facility]manCHEST XRAY LINE YJQJWCYDL3637-44-45 11:18:00 [facility] [address] [place] [address] Patient Name: ANDREA HOOVER MR #: [id number] : 1960 Age/Sex: 59/F Req #: [id number] Adm Physician: AMINAH ROBBINS MD Ordered by: YOEL HUGGINS MD Report #: [id number] Location: MED/SURG2 Room/Bed: 212-1 Procedure: [id number] D X/CHEST XRAY LINE PLACEMENT Exam Date: Exam Time: REPORT STATUS: Signed EXAMINATIO N: CHEST XRAY LINE PLACEMENT INDICATION: Line placement COMPARISO N: Chest are graft 06/13/2019 FINDINGS: LINES/TUBES:Interval place ment of right PICC line, terminating in the superior vena cava. LUNGS:The lungs are moderately inflated. There is perihilar fullness and indistinctness of the pulmonary vasculature. PLEURA:Small bilateral layering pleural effu sions. No pneumothorax. MEDIASTINUM:Cardiomediastinal silhouette is stably enlarged. BONES/SOFT TISSUES:No acute osseous injury. ABDOMEN:No free air under the diaphragm. IMPRESSION: Right PICC line terminates in th e superior vena cava. Unchanged cardiomegaly. Mild pulmonary interstitial e carlos. Likely small layering bilateral pleural effusions. Signed by: Shannan Crawford MD on 06/14/2019 11:19 AM Dictated By: JUAN CRAWFORD MD [facility] Signed By: JUAN CRAWFORD MD on 06/14/19 111 Transcribed By: RUCHI on 05/20 12/05 111 COPY TO: YOEL HUGGINS MD MRI FOOT RIGHT TD3848-04-66 19:18:00 [place] [address] Patient Name: ANDREA HOOVER MR #: [id number] : 1960 Age/Sex: 59/F Req #: [id number] Adm Physician: AMINAH ROBBINS MD Ordered by: ALEXIS HUITRON Report #: [id number] Location: MED/SURG2 Room/Bed: [facility] Procedure: 0126-00 06 MRI/MRI FOOT RIGHT WO Exam Date: Exam Time: REPORT STATUS: Signed Exam: RIGHT F OREFOOT MRI WITHOUT CONTRAST TECHNIQUE: Magnetic resonance imaging of th e right forefoot foot was performed WITHOUT injected contrast. HISTORY: Pain, osteomyelitis, abscess COMPARISON: Right foot x-rays 06/13/2019 9:15 AM DISCUSSION: The midfoot is partially included on which limits evaluati on. Bone: Fluid hyperintense signal on fat-suppressed sequences with in the marrow of the following bones: * proximal phalanges of the third thr ough fifth toes. * The second through fifth metatarsals * Cuneiforms Hypointense marrow signal on T1 sequence in the following sites:. * Base o f third toe proximal phalanx * First toe distal phalanx. * Third metatars al base (series 4 image 9) * Intermediate cuneiform No fractures. J oints: Joint space loss and osteophytes in the midfoot. Without joint effusi on or No dislocations. Soft Tissues: Forefoot/midfoot tissue edema wi th multiple fluid hyperintense loculations which extend from the third interph alangeal space to the lateral dorsal mid/forefoot soft tissues where there is a 2.6 cm collection. Edema in the plantar and dorsal fascia. IMPRESSION: Acute destructive osteomyelitis of the third toe proximal phalanx with sma ll surrounding abscesses including a 2.6 centimeter abscess in the lateral pat dottie midfoot mid/forefoot soft tissues above the fourth metatarsal. Plantar forefoot soft tissue defect. Acute osteomyelitis of the first toe distal ph alanx. Marrow edema in the fourth and fifth toes and second through fifth m etatarsals where early osteomyelitis is possible. The midfoot is partiall y included on the scan. Tarsal marrow edema and fat signal loss replacement, o steomyelitis or neuropathic joint are considerations. The foot x-ray suggests midfoot/tarsal erosive changes. RECOMMEND right midfoot MRI WITH and WITHOU T contrast for further evaluation. Signed by: Brayan Townsend DO on 020 7:45 PM Dictated By: BRAYAN TOWNSEND DO 44 Transcribed By: RUCHI on 06/13/191944 COPY TO: ALEXIS HUITRON Blood Brtyzqd1989-57-07 19:03:00* Test Item Value Reference Range Interpretation Comments Blood Culture (test code = 68301023) NO GROWTH AFTER 5 DAYS, FINAL REPORT [facility] SINGLE (PORTABLE)2019-06-13 15:41:00 [facility] [address] [place] [address] Patient Name: ANDREA HOOVER MR #: [id number] : 1960 Age/Sex: 59/F Req #: [id number] Adm Physician: AMINAH ROBBINS MD Ordered by: ANNIE SINGLETON NEUROSURGERY PHYSICIAN Report #: [id number] Location: MED/SURG2 Room/Bed: [facility] Procedure: [id number] DX/CHEST SINGLE (PORTABLE) Exam Date: 06/13/19 Exam Time: 1430 REPORT STATUS: Signed EXAMINATION: CHEST SINGLE (PORTABLE) INDICATION: Pulmonary edema. COMPARISON: Chest radiograph 06/12/2019. FINDINGS: TUBES and LINE S: None. LUNGS: Improving bilateral interstitial and airspace opacities. P ersistent patchy lower lung zone opacities. PLEURA: Decreasing small bila teral pleural effusions, right greater than left. No pneumothorax. HEART AND MEDIASTINUM: The cardiomediastinal silhouette is mildly enlarged. BON ES AND SOFT TISSUES: No acute osseous lesion. Soft tissues are unremarkable. UPPER ABDOMEN: No free air under the diaphragm. IMPRESSION: Im proving pulmonary edema with decreasing small bilateral pleural effusions and decreasing lower lung zone opacities, likely atelectasis. Signed by: Dr. Belén Mcghee MD on 06/13/2019 3:43 PM Dictated By: JORGE LUIS MCGHEE MD Electronica ll Signed By: JORGE LUIS MCGHEE MD on 06/13/191542 Transcribed By: RUCHI on 1542 COPY TO: ANNIE SINGLETON NEUROSURGERY PHYSICIAN FOOT RIGHT YKMXZGCX6256-32-30 10:25:00 [facility] [address] [address] Patient Name: ANDREA HOOVER MR #: [id number] : 1960 Age/Sex: 59/F Req #: [id number] Adm Physician: AMINAH ROBBINS MD Ordered by: REHANA FERNANDEZ DPFady Report #: [id number] Location: MED/SURG2 Room/Bed: [facility] Procedure: [id number] DX/ FOOT RIGHT COMPLETE Exam Date: 06/13/19 Exam Time: 0 915 REPORT STATUS: Signed Exam: Right foot radiographs-3 views Clinical History: Query osteomyelitis. Comparison: None. Findings: No evidence of acute displaced fracture amna lignment. There is bony sclerosis with expansion of the proximal aspect of the third toe proximal phalanx. There is a cortical defect along the base whic h represent erosion. There is soft tissue edema in the midfoot and forefoot. Mild degenerative changes in the midfoot. There is a mildly sclerotic appe arance of the base of the second through fifth metatarsals and the tarsals. On the lateral view, there is cortical thickening overlying the dorsal aspect of the midfoot, possibly the cuboid. There is a soft tissue defect along the lateral aspect of the base of the small toe without evidence of bony destructi ve changes. Impression: Possible osteomyelitis at the base of the third t oe proximal phalanx. Sclerotic appearance in the midfoot could reflect degener ative changes or chronic osteomyelitis. MRI of the forefoot /midfoot with and without contrast would be helpful for further characterization. Soft tiss ue defect at the base of the small toe without evidence of bony injury. S igned by: Dr. Jorge Luis Mcghee MD on 06/13/2019 10:31 AM Dictated By: JORGE LUIS Wilson MD 1031 Transcribed By: RUCHI on 06/13/19 1031 COPY TO: REHANA FERNANDEZ DPM Erythrocyte Sedimentation Zggd5936-08-60 09:50:00* Test Item Value Reference Range Interpretation Comments Erythrocyte Sedimentation Rate (test code = 4537-7) 117 0- 20 H [facility] (1&2) Mberuxou6731-84-70 09:50:00* Test Item Value Reference Range Interpretation Comments HIV (1&2) Antibody (test code = 73402-7) NON-REACTIVE NONREACTIVE [facility] P24 Freemgm5479-31-40 09:50:00* Test Item Value Reference Range Interpretation Comments HIV P24 Antigen (test code = HIV P24 Antigen) NON-REACTIVE NONREACT GLENIS [facility] (1&2) Tavurxre9194-43-61 09:50:00* Test Item Value Reference Range Interpretation Comments HIV (1&2) Antibody (test code = 05182-0) NON-REACTIVE NONREACTIVE [facility] P24 Zfeqsex9333-84-60 09:50:00* Test Item Value Reference Range Interpretation Comments HIV P24 Antigen (test code = HIV P24 Antigen) NON-REACTIVE NONREACT GLENIS [facility])2019-06-12 08:31:00 [place] [address] Patient Name: ANDREA HOOVER MR #: [id number] : 1960 Age/Sex: 59/F Req #: [id number] Adm Physician: AMINAH ROBBINS MD Ordered by: AMINAH ROBBINS MD Report #: [id number] Location: MED/SURG2 Room/Bed: [facility] Procedure: [id number] DX/CHEST SINGLE (PORTABLE) Exam Date: 06/12/19 Exam Time: 554 REPORT STATUS: Signed EXAMINATION: CHEST SINGLE (PORTABLE) INDICATION: rule out parapneumonic effusion [id number] COMPARISON: 06/10/2019 FINDINGS: TUBES and LINES: None. LUNGS: Bilateral pulmonary venous con gestion and central pulmonary edema. PLEURA: Moderate right and small left pleural effusions. No pneumothorax. HEART AND MEDIASTINUM: The cardiomed iastinal silhouette is unremarkable. BONES AND SOFT TISSUES: No acute osseous lesion. Soft tissues are unremarkable. UPPER ABDOMEN: No free ai r under the diaphragm. IMPRESSION: Worsening of bilateral pulmonary edema with increasing pleural effusions. Signed by: Dr. Allan George i, M.D. on 06/12/2019 8:33 AM Dictated By: EMMA CINTRON MD, MD [facility] Signed By: EMMA CINTRON MD, MD on 06/12/19832 Transcribed By: RUCHI on 06/12/19832 COPY TO: AMINAH ROBBINS MD CT ABDOMEN/PELVIS WO 2019-06-11 16:09:00 [place] [address] Patient Name: ANDREA HOOVER MR #: [id number] : 1960 Age/Sex: 59/F Req #: [id number] Adm Physician: AMINAH ROBBINS MD Ordered by: ALEXIS HUITRON Report #: [id number] Location: MED/SURG2 Room/Bed: [facility] Procedure: 0124-[address]/CT ABDOMEN/PELVIS WO Exam Date: 06/11/19 Exam Time: 1508 REPORT STATUS: Signed CT of the abdomen and pelvis, without contrast, 06/11/2019. History: Fever, nausea, abdominal pain. Comparison: Ultrasound 06/09/[address] abdomen 03/27/2019. Technique: Multidetector CT scanning of the abdomen and pelvis was performed from the level of the lung bases to the inferior pub ic rami without intravenous contrast. Oral contrast was given. Coronal and sa gittal multiplanar reformations were obtained. RADIATION DOSE: Tot al DLP: 552 mGy*cm Dose modulation, iterative reconstruction, and/or weig ht based adjustment of the mA/kV was utilized to reduce the radiation dose to as low as reasonably achievable. Discussion: Examination is limited with out contrast. Lung bases: Bilateral perihilar ground glass opacities, patchy b ibasilar consolidation left greater than right, and small pleural effusions ar e present. Abdomen: The liver is enlarged and nodular. The biliary tree, sp linette, pancreas, adrenal glands, and kidneys are unremarkable. Linear calcifica tions in the renal matthew are likely vascular. Cholecystectomy clip is noted. A 1.5 cm oval exophytic lesion is seen arising from the lower pole of the left k idney measuring 57 Hounsfield units in density. The abdominal aorta is within normal limits. Stomach is unremarkable. Suture material is noted distal small bowel. There is no bowel dilatation. The appendix is visualized and is normal. There is no evidence of adenopathy or free fluid. Pelvis: The bladder is unremarkable. The uterus and adnexa are not visualized. Multiple calcified phleboliths are present bilaterally. There is no evidence of free fluid or nancy nopathy. Bones and soft tissues: Degenerative changes are present througho ut the lumbar spine without evidence of lytic or sclerotic lesion. IMP RESSION: 1. Bibasilar opacities concerning for pneumonia. 2. Enlarged cir rhotic liver. 3. Left renal lesion without change, most likely a hyperdense cy st which may be confirmed with ultrasound. 4. Status post hysterectomy. Oth erwise unremarkable noncontrast exam. Signed by: Phill Nelson on 05/20 4:23 PM Dictated By: PHILL NELSON MD 22 Transcribed By: RUCHI on 06/11/191622 COPY TO: ALEXIS HUITRON Iron Egddq8255-47-68 10:57:00* Test Item Value Reference Range Interpretation Comments Iron Level (test code = 2498-4) 11 50-170 L [facility] Binding Fkqlwely9736-87-35 10:57:00* Test Item Value Reference Range Interpretation Comments Total Iron Binding Capacity (test code = 2500-7) 185 261-4 78 L [facility]manPercent Iron Gulsytyqes4345-56-29 10:57:00* Test Item Value Reference Range Interpretation Comments Percent Iron Saturation (test code = 2502-3) 6 15-50 L [facility]manTransferrin2020-01-24 10:57:00* Test Item Value Reference Range Interpretation Comments Transferrin (test code = 3034-6) 132 180-382 L [facility]manIron Poiyb4267-87-06 10:57:00* Test Item Value Reference Range Interpretation Comments Iron Level (test code = 2498-4) 11 50-170 L [facility] Iron Binding Whnxkjzq0833-97-43 10:57:00* Test Item Value Reference Range Interpretation Comments Total Iron Binding Capacity (test code = 2500-7) 185 261-4 78 L [facility]manPercent Iron Vvaskhscxh7576-49-78 10:57:00* Test Item Value Reference Range Interpretation Comments Percent Iron Saturation (test code = 2502-3) 6 15-50 L [facility]manTransferrin2020-01-24 10:57:00* Test Item Value Reference Range Interpretation Comments Transferrin (test code = 3034-6) 132 180-382 L [facility]aufmanProcalcitonin2020-01-23 22:44:00* Test Item Value Reference Range Interpretation Comments Procalcitonin (test code = 563678387) 0.66 0.00-0.08 H A procalcitonin (PCT) level above 2.0 ng/mL on the firstday of ICU admission is associated with a high risk forprogression to severe sepsis and/or septic shock. A PCT level below 0.5 ng/mL on the first day of ICUadmission is associated with a low risk for progressionto severe sepsis and/or septic shock.Note: Concentrati ons <0.5 ng/mL do not exclude aninfection, on account of localized infections (withoutsystemic signs) which can be associated with such lowconcentrations, or a systemic infection in its initialstages (<6 hours).Furthermore, increased procalcitonin can occur withoutinfection. PCT concentrations between 0.5 and 2.0 ng/mLshould be interpreted taking into account the patient'shistory. It is recommended to retest PCT within 6-24 hoursif any concentrations <2 ng/mL are obtained.Performed at: [facility] Lab[address] [id number] Director: Manjeet Pritchard MD, Phone: [phone] Health KaufmanProcalcitonin2020-01-23 22:44:00* Test Item Value Reference Range Interpretation Comments Procalcitonin (test code = 649376236) 0.66 0.00-0.08 H A procalcitonin (PCT) level above 2.0 ng/mL on the firstday of ICU admission is associated with a high risk forprogression to severe sepsis and/or septic shock. A PCT level below 0.5 ng/mL on the first day of ICUadmission is associated with a low risk for progressionto severe sepsis and/or septic shock.Note: Concentrati ons <0.5 ng/mL do not exclude aninfection, on account of localized infections (withoutsystemic signs) which can be associated with such lowconcentrations, or a systemic infection in its initialstages (<6 hours).Furthermore, increased procalcitonin can occur withoutinfection. PCT concentrations between 0.5 and 2.0 ng/mLshould be interpreted taking into account the patient'shistory. It is recommended to retest PCT within 6-24 hoursif any concentrations <2 ng/mL are obtained.Performed at: - [facility] [id number] Director: Manjeet Pritchard MD, Phone: [phone]2020-[facility]-23 09:12:00* Test Item Value Reference Range Interpretation Comments Ammonia (test code = 01566-8) 52 [facility]2020-01-23 09:12:00* Test Item Value Reference Range Interpretation Comments Ammonia (test code = 64358-0) 52 [facility] Kyhba3270-82-55 09:00:00* Test Item Value Reference Range Interpretation Comments Magnesium Level (test code = 63494-8) 1.7 1.3-2.1 [facility]2019-06-10 08:35:00 [facility] [address] [place] [address] Patient Name: ANDREA HOOVER MR #: [id number] : 1960 Age/Sex: 59/F Req #: [id number] Adm Physician: AMINAH ROBBINS MD Ordered by: NO AL MD Report #: [id number] Location: MED/SURG2 Room/Bed: [facility] Procedure: 0123-000 8 DX/CHEST SINGLE (PORTABLE) Exam Date: 06/10/19 Alex sosa Time: 08 REPORT STATUS: Signed Chest, 1 view, 06/10/2019. History: CHF, pneumonia. Comparis on: 06/09/2019. Findings: The cardiomediastinal silhouette and pulmonary vas culature are prominent. Diffuse alveolar opacities are now present throughout the left lung, increased compared to prior exam.. Are no acute osseous or soft tissue abnormalities. Impression: Increased left-sided pulmonary opa cities may represent asymmetric edema versus pneumonia. Signed by: Carson Nelson on 06/10/2019 8:38 AM Dictated By: PHILL NELSON MD Electronicall y Signed By: PHILL NELSON MD on 06/10/19837 Transcribed By: RUCHI on 06/10 COPY TO: NO AL MD, TAYA Creatine Kinase MB 2019-06-09 20:06:00* Test Item Value Reference Range Interpretation Comments Creatine Kinase MB (test code = 23533-1) 1.00 0-5.0 [facility]manTroponin I9643-88-13 20:06:00* Test Item Value Reference Range Interpretation Comments Troponin I (test code = PEG3457) 0.032 0-0.300 [facility]manCreatine Ialsim0152-45-04 19:59:00* Test Item Value Reference Range Interpretation Comments Creatine Kinase (test code = 2157-6) 101 29-168 [facility]manUS ABDOMEN XCEGFYI6669-95-92 14:33:00 [place] [address] Patient Name: ANDREA HOOVER MR #: [id number] : 1960 Age/Sex: 59/F Req #: [id number] Adm Physician: NO AL MD, TAYA Ordered by: NO AL MD Report #: [id number] Location: MED/SURG2 Room/Bed: [facility] Procedure: [id number] US/US ABDOMEN LIMITED Exam Date: 06/09/19 Exam Time: 1345 REPORT STATUS: Sign ed Right upper quadrant abdominal ultrasound, 06/09/2019. History: Right upper quadrant pain. Abnormal LFTs. Comparison: CT 03/28/2019. Discussion: Transverse and longitudinal images of the right upper quadrant of the abdomen were obtained demonstrating a liver of increased size and mildly h eterogeneous echogenicity measuring 18.3 cm in length. There is mild nodulari ty of the surface contour but no evidence of a focal hepatic mass. The portal vein is patent with hepatopetal flow and is within normal limits measuring 11 mm in diameter. The biliary tree is within normal limits with the com mon bile duct measuring 4 mm in diameter. The gallbladder is absent. The right kidney is normal in size and echogenicity without evidence of hydro nephrosis, stones, or mass and measures 9.6 cm in length. The pancreatic <body and tail> are visualized and are normal in appearance. The abdominal aorta is within normal limits. There is no evidence of free fluid. IMPRESSION: 1. Mild hepatomegaly with findings of cirrhosis but no focal hepatic abnormality. Contrast-enhanced MRI or CT would be more sensitive for detection of HCC. 2. Status post cholecystectomy. Signed by: Phill Nelson on 06/09/2019 2:35 PM Dictated By: PHILL NELSON MD 1435 Transcribed By: RUCHI on 06/09/19 1435 COPY TO: NO AL MD, ABIM CHEST SINGLE (PORTABLE) 2019-06-09 09:04:00 [place] [address] Patient Name: ANDREA HOOVER MR #: [id number] : 1960 Age/Sex: 59/F Req #: [id number] Adm Physician: NO AL MD, ABIM Ordered by: MADI DUKE MD Report #: [id number] Location: MED/SURG2 Room/Bed: 212-1 Procedure: DX/CHEST SINGLE (PORTABLE) Exam Date: 06/09/19 Exam Time: 0620 REPORT STATUS: S igned Chest, 1 view, 06/09/2019. History: Body aches. Compar ivone: 06/08/2019. Findings: The cardiomediastinal silhouette and pulmonary v asculature are mildly prominent. There is no focal consolidation or pleural ef fusion. Old fracture of the proximal left clavicle is again noted. There are n o acute osseous or soft tissue abnormalities. Impression: Mild cardio megaly and pulmonary vascular congestion. Signed by: Phill Nelson on 2019 9:06 AM Dictated By: PHILL NELSON MD 5 Transcribed By: RUCHI on 06/09/19905 C OPY TO: MADI DUKE MD Lactic Acid Ommmh3451-97-26 20:48:00* Test Item Value Reference Range Interpretation Comments Lactic Acid Level (test code = Lactic Acid Level) 0.6 0.5- 2.0 [facility] JGD5093-15-94 18:25:00* Test Item Value Reference Range Interpretation Comments Urine WBC (test code = 5821-4) 6-10 0-5 H [facility] OFY7672-30-42 18:25:00* Test Item Value Reference Range Interpretation Comments Urine RBC (test code = 44172-0) 6-10 0-5 H [facility] Olfplbyx3625-81-43 18:25:00* Test Item Value Reference Range Interpretation Comments Urine Bacteria (test code = 12231-2) MANY NONE H [facility] Epithelial Pcads0595-34-69 18:25:00 * Test Item Value Reference Range Interpretation Comments Urine Epithelial Cells (test code = 15029-7) MODERATE NONE [facility] Amorphous Imxlzljg5885-50-00 18:25:00* Test Item Value Reference Range Interpretation Comments Urine Amorphous Sediment (test code = 8246-1) MODERATE FEW H [facility] TLM5586-31-97 18:25:00* Test Item Value Reference Range Interpretation Comments Urine WBC (test code = 5821-4) 6-10 0-5 H [facility] UMS4851-01-33 18:25:00* Test Item Value Reference Range Interpretation Comments Urine RBC (test code = 17640-9) 6-10 0-5 H [facility] Ywbndpqu3466-52-22 18:25:00* Test Item Value Reference Range Interpretation Comments Urine Bacteria (test code = 02667-1) MANY NONE H [facility] Epithelial Tytti3249-68-18 18:25:00 * Test Item Value Reference Range Interpretation Comments Urine Epithelial Cells (test code = 90815-2) MODERATE NONE [facility] Amorphous Uqsexbnv9548-60-88 18:25:00* Test Item Value Reference Range Interpretation Comments Urine Amorphous Sediment (test code = 8246-1) MODERATE FEW H [facility] Qpjhl9694-93-43 18:18:00* Test Item Value Reference Range Interpretation Comments Urine Color (test code = 5778-6) YELLOW YELLOW [facility] Nzaihrs2223-63-43 18:18:00* Test Item Value Reference Range Interpretation Comments Urine Clarity (test code = 64536-8) SL CLOUDY CLEAR [facility] Specific Iadqacb4078-29-61 18:18:00 * Test Item Value Reference Range Interpretation Comments Urine Specific Bostic (test code = 5811-5) 1.025 1.010-1.02 5 [facility] rH6763-10-04 18:18:00* Test Item Value Reference Range Interpretation Comments Urine pH (test code = 19026-7) 6 5-7 [facility] Leukocyte Whgcdmwy5158-17-23 18:18:00* Test Item Value Reference Range Interpretation Comments Urine Leukocyte Esterase (test code = 5799-2) NEGATIVE NEGATIVE [facility] Heagfqk5012-70-91 18:18:00* Test Item Value Reference Range Interpretation Comments Urine Nitrite (test code = 48816-7) NEGATIVE NEGATIVE [facility] Vnlriyu7917-49-46 18:18:00* Test Item Value Reference Range Interpretation Comments Urine Protein (test code = 5804-0) 2+ NEGATIVE H [facility] Glucose (UA)2019-06-08 18:18:00* Test Item Value Reference Range Interpretation Comments Urine Glucose (UA) (test code = 2349-9) 2+ NEGATIVE H [facility] Ojdiqng0870-91-47 18:18:00* Test Item Value Reference Range Interpretation Comments Urine Ketones (test code = 67129-5) NEGATIVE NEGATIVE [facility] Jaxmhzreiuyt5257-49-94 18:18:00* Test Item Value Reference Range Interpretation Comments Urine Urobilinogen (test code = 52333-5) 0.2 0.2-1 [facility] Fqklnnkbi5775-88-38 18:18:00* Test Item Value Reference Range Interpretation Comments Urine Bilirubin (test code = 1978-6) NEGATIVE NEGATIVE [facility] Bdckt3536-48-70 18:18:00* Test Item Value Reference Range Interpretation Comments Urine Blood (test code = 47793-6) 2+ NEGATIVE H [facility] Nsbbd6937-73-11 18:18:00* Test Item Value Reference Range Interpretation Comments Urine Color (test code = 5778-6) YELLOW YELLOW [facility] Nxwpumh2459-31-99 18:18:00* Test Item Value Reference Range Interpretation Comments Urine Clarity (test code = 16306-7) SL CLOUDY CLEAR [facility] Specific Xcazgbf4460-37-59 18:18:00 * Test Item Value Reference Range Interpretation Comments Urine Specific Bostic (test code = 5811-5) 1.025 1.010-1.02 5 [facility]manU[facility] tV3436-14-12 18:18:00* Test Item Value Reference Range Interpretation Comments Urine pH (test code = 81871-5) 6 5-7 [facility] Leukocyte Oapfnrfu4328-38-08 18:18:00* Test Item Value Reference Range Interpretation Comments Urine Leukocyte Esterase (test code = 5799-2) NEGATIVE NEGATIVE [facility] Wamaweo9681-82-17 18:18:00* Test Item Value Reference Range Interpretation Comments Urine Nitrite (test code = 02135-8) NEGATIVE NEGATIVE [facility] Fznugor5493-04-11 18:18:00* Test Item Value Reference Range Interpretation Comments Urine Protein (test code = 5804-0) 2+ NEGATIVE H [facility] Glucose (UA)2019-06-08 18:18:00* Test Item Value Reference Range Interpretation Comments Urine Glucose (UA) (test code = 2349-9) 2+ NEGATIVE H [facility] Trozrgw1304-85-98 18:18:00* Test Item Value Reference Range Interpretation Comments Urine Ketones (test code = 97139-7) NEGATIVE NEGATIVE [facility] Tkqmaedqfwjw6956-18-28 18:18:00* Test Item Value Reference Range Interpretation Comments Urine Urobilinogen (test code = 14976-6) 0.2 0.2-1 [facility] Odqhbkcqj4152-56-22 18:18:00* Test Item Value Reference Range Interpretation Comments Urine Bilirubin (test code = 1978-6) NEGATIVE NEGATIVE [facility] Klvpi8255-00-06 18:18:00* Test Item Value Reference Range Interpretation Comments Urine Blood (test code = 72548-4) 2+ NEGATIVE H [facility]manGroup A Streptococcus Lbolqz2471-14-40 17:04:00* Test Item Value Reference Range Interpretation Comments Group A Streptococcus Screen (test code = 11953-2) NEGATIVE NEG ATIVE [facility]manGroup A Streptococcus Jfbarj7739-13-24 17:04:00* Test Item Value Reference Range Interpretation Comments Group A Streptococcus Screen (test code = 14447-4) NEGATIVE NEG ATIVE [facility]manProthrombin Tpoc8990-14-60 16:51:00* Test Item Value Reference Range Interpretation Comments Prothrombin Time (test code = 5902-2) 14.2 11.9-14.5 [facility]manProthromb Time International Ratio 2019-06-08 16:51:00* Test Item Value Reference Range Interpretation Comments Prothromb Time International Ratio (test code = 6301-6) 1.05 Oral Anticoagulant Therapy INR Values:1. Low Intensity Therapy 1.5 - 2.02 . Moderate Intensity Therapy 2.0 - 3.03. High Intensity Therapy(1) 2.5 - 3. 54. High Intensity Therapy(2) 3.0 - 4.05. Panic Value INR > 5.0 [facility]manActivated Partial Thromboplast Time 2019-06-08 16:51:00* Test Item Value Reference Range Interpretation Comments Activated Partial Thromboplast Time (test code = 00806-5) 28.9 23.8-35.5 [facility]manProthrombin Yfsf0115-88-27 16:51:00* Test Item Value Reference Range Interpretation Comments Prothrombin Time (test code = 5902-2) 14.2 11.9-14.5 [facility]manProthromb Time International Ratio 2019-06-08 16:51:00* Test Item Value Reference Range Interpretation Comments Prothromb Time International Ratio (test code = 6301-6) 1.05 Oral Anticoagulant Therapy INR Values:1. Low Intensity Therapy 1.5 - 2.02 . Moderate Intensity Therapy 2.0 - 3.03. High Intensity Therapy(1) 2.5 - 3. 54. High Intensity Therapy(2) 3.0 - 4.05. Panic Value INR > 5.0 [facility]manActivated Partial Thromboplast Time 2019-06-08 16:51:00* Test Item Value Reference Range Interpretation Comments Activated Partial Thromboplast Time (test code = 96924-4) 28.9 23.8-35.5 [facility]manInfluenza Virus Types A,B Antigen 2019-06-08 16:41:00* Test Item Value Reference Range Interpretation Comments Influenza Virus Types A,B Antigen (test code = 50436-1) NEGATIVE NEGATIVE [facility])2019-06-08 16:32:00 [facility] [address] [place] [address] Patient Name: ANDREA HOOVER MR #: [id number] : 1960 Age/Sex: 59/F Req #: [id number] Adm Physician: Ordered by: MADI DUKE MD Report #: [id number] Location: ER Room/Bed: Procedure: [id number] D X/CHEST SINGLE (NOT PORTABLE) Exam Date: Exam Time: REPORT STATUS: Signed EXAMINAT ION: CHEST SINGLE (NOT PORTABLE) INDICATION: Fever COMPARISON: No ne FINDINGS: LINES/TUBES:None LUNGS:The lungs are well-infla eliecer. No focal consolidation or pulmonary edema. PLEURA:No pleural effusion or pneumothorax. MEDIASTINUM:The cardiomediastinal silhouette appears kylah l in size and shape. BONES/SOFT TISSUES:No acute osseous injury. ABDOM EN:No free air under the diaphragm. IMPRESSION: No focal pneumonia or pulmonary edema. Signed by: Juan Crawford MD on 06/08/2019 4:33 PM Dic tated By: JUAN CRAWFORD MD 163 3 Transcribed By: RUCHI on 06/08/19 1633 COPY TO: MADI DUKE MD Bedside Hggbodt3128-97-74 11:35:00* Test Item Value Reference Range Interpretation Comments Bedside Glucose (test code = 96067-2) 139 70-120 H Meter ID: [id number] [facility]odium [facility] 2019-04-01 06:07:00* Test Item Value Reference Range Interpretation Comments Sodium Level (test code = 2951-2) 139 136-145 [facility]manPotassium Drpvb6823-07-88 06:07:00* Test Item Value Reference Range Interpretation Comments Potassium Level (test code = 2823-3) 3.9 3.5-5.1 [facility]aufmanChloride Cifbo8014-28-06 06:07:00* Test Item Value Reference Range Interpretation Comments Chloride Level (test code = 2075-0) 107 98-107 [facility]aufmanCarbon Dioxide Winrv8641-59-88 06:07:00* Test Item Value Reference Range Interpretation Comments Carbon Dioxide Level (test code = 2028-9) 25 22-29 [facility]manAnion Ikt1195-74-36 06:07:00* Test Item Value Reference Range Interpretation Comments Anion Gap (test code = 14551-7) 10.9 8-16 [facility]aufmanBlood Urea Pteqmqxm4938-57-60 06:07:00* Test Item Value Reference Range Interpretation Comments Blood Urea Nitrogen (test code = 3094-0) 13 7-26 [facility]manCreatinine2019-11-14 06:07:00* Test Item Value Reference Range Interpretation Comments Creatinine (test code = 2160-0) 1.06 0.57-1.11 [facility]aufmanBUN/Creatinine Mtvql2255-78-85 06:07:00* Test Item Value Reference Range Interpretation Comments BUN/Creatinine Ratio (test code = 3097-3) 12 6-25 [facility] KaufmanEstimat Glomerular Filtration Rate 2019-04-01 06:07:00* Test Item Value Reference Range Interpretation Comments Estimat Glomerular Filtration Rate (test code = 500959952) > 60 >60 Ranges were taken from the National Kidney Disease Education Program and the [facility] Kidney Foundation literature.Reference ranges:60 or greater: Jcbsgr10-76 ( for 3 consecutive months): Chronic kidney disease 15 or less: Kidney failureTexas Health KaufmanGlucose Qsrap0003-37-72 06:07:00* Test Item Value Reference Range Interpretation Comments Glucose Level (test code = SFX0687) 114 74-118 [facility]aufmanCalcium Emuxf3903-99-71 06:07:00* Test Item Value Reference Range Interpretation Comments Calcium Level (test code = 08711-7) 9.0 8.4-10.2 [facility]aufmanWhite Blood Wlxfq4154-71-43 05:55:00* Test Item Value Reference Range Interpretation Comments White Blood Count (test code = 6690-2) 13.32 4.8-10.8 H [facility] KaufmanRed Blood Bzpap5048-11-25 05:55:00* Test Item Value Reference Range Interpretation Comments Red Blood Count (test code = 789-8) 2.93 3.6-5.1 L [facility]aufmanHemoglobin2019-11-14 05:55:00* Test Item Value Reference Range Interpretation Comments Hemoglobin (test code = 40271-7) 7.8 12.0-16.0 L [facility]aufmanHematocrit2019-11-14 05:55:00* Test Item Value Reference Range Interpretation Comments Hematocrit (test code = 4544-3) 24.7 34.2-44.1 L [facility] KaufmanMean Corpuscular Puvmnc6904-18-03 05:55:00* Test Item Value Reference Range Interpretation Comments Mean Corpuscular Volume (test code = 787-2) 84.3 81-99 [facility]aufmanMean Corpuscular Hoxizlhbkx1820-78-76 05:55:00* Test Item Value Reference Range Interpretation Comments Mean Corpuscular Hemoglobin (test code = 785-6) 26.6 28-32 L [facility] KaufmanMean Corpuscular Hemoglobin Concent 2019-04-01 05:55:00* Test Item Value Reference Range Interpretation Comments Mean Corpuscular Hemoglobin Concent (test code = 786-4) 31.6 31-35 [facility]aufmanRed Cell Distribution Yawdz1323-38-18 05:55:00* Test Item Value Reference Range Interpretation Comments Red Cell Distribution Width (test code = 66600-9) 13.8 11.7 -14.4 [facility] KaufmanPlatelet Raowt9903-60-30 05:55:00* Test Item Value Reference Range Interpretation Comments Platelet Count (test code = 777-3) 460 140-360 H [facility]aufmanNeutrophils (%) (Auto)2019-04-01 05:55:00 * Test Item Value Reference Range Interpretation Comments Neutrophils (%) (Auto) (test code = 08497-1) 59.9 38.7-80.0 [facility]aufmanLymphocytes (%) (Auto)2019-04-01 05:55:00 * Test Item Value Reference Range Interpretation Comments Lymphocytes (%) (Auto) (test code = 736-9) 27.6 18.0-39.1 [facility]manMonocytes (%) (Auto)2019-04-01 05:55:00* Test Item Value Reference Range Interpretation Comments Monocytes (%) (Auto) (test code = 5905-5) 8.6 4.4-11.3 [facility]manEosinophils (%) (Auto)2019-04-01 05:55:00 * Test Item Value Reference Range Interpretation Comments Eosinophils (%) (Auto) (test code = 713-8) 1.7 0.0-6.0 [facility]aufmanBasophils (%) (Auto)2019-04-01 05:55:00* Test Item Value Reference Range Interpretation Comments Basophils (%) (Auto) (test code = 706-2) 0.6 0.0-1.0 [facility] KaufmanIM GRANULOCYTES %2019-04-01 05:55:00* Test Item Value Reference Range Interpretation Comments IM GRANULOCYTES % (test code = IM GRANULOCYTES %) 1.6 0.0- 1.0 H [facility]aufmanNeutrophils # (Auto)2019-04-01 05:55:00* Test Item Value Reference Range Interpretation Comments Neutrophils # (Auto) (test code = 751-8) 8.0 2.1-6.9 H [facility]aufmanLymphocytes # (Auto)2019-04-01 05:55:00* Test Item Value Reference Range Interpretation Comments Lymphocytes # (Auto) (test code = 72719-6) 3.7 1.0-3.2 H [facility]aufmanMonocytes # (Auto)2019-04-01 05:55:00* Test Item Value Reference Range Interpretation Comments Monocytes # (Auto) (test code = 742-7) 1.1 0.2-0.8 H [facility]manEosinophils # (Auto)2019-04-01 05:55:00* Test Item Value Reference Range Interpretation Comments Eosinophils # (Auto) (test code = 711-2) 0.2 0.0-0.4 [facility]manBasophils # (Auto)2019-04-01 05:55:00* Test Item Value Reference Range Interpretation Comments Basophils # (Auto) (test code = 704-7) 0.1 0.0-0.1 [facility] KaufmanAbsolute Immature Granulocyte (auto 2019-04-01 05:55:00* Test Item Value Reference Range Interpretation Comments Absolute Immature Granulocyte (auto (gretchen t code = Absolute Immature Granulocyte (auto) 0.21 0-0.1 H [facility]manCHEST SINGLE (PORTABLE)2019-03-29 03:52:00 [place] [address] Patient Name: ANDREA HOOVER MR #: [id number] : 1960 Age/Sex: 59/F Req #: [id number] Adm Physician: AMINAH ROBBINS MD Ordered by: AMINAH ROBBINS MD Report #: [id number] [facility] Procedure: [id number] DX/CHEST SINGLE (PORTABLE) Exam Date: 03/29/19 Exam Time: 0330 REPORT STATUS: Signed EXAMINATION: CHEST SINGLE (PORTABLE) INDICATION: Check PICC placement . COMPARISON: Chest radiograph 08/30/2017. FINDINGS: TUBES and LINES: Right arm PICC terminates in the lower SVC. LUNGS: Low lung volumes . Central vascular congestion. Mild patchy bibasilar opacities. PLEURA: No pleural effusion or pneumothorax. HEART AND MEDIASTINUM: The cardiome diastinal silhouette is unremarkable. BONES AND SOFT TISSUES: No acute osseous abnormality. UPPER ABDOMEN: No free air under the diaphragm. IMPRESSION: Right arm PICC terminates in the lower SVC. No evidence of pn eumothorax. Low lung volumes with central vascular congestion. Patchy bibas ilar opacities, likely atelectasis. Signed by: Dr. [place] Luis Mcghee MD on 03/19 3:54 AM Dictated By: JORGE LUIS MCGHEE MD 3 Transcribed By: RUCHI on 03/29/19353 COPY TO: AMINAH ROBBINS MD Stool Occult Erocu3519-86-99 17:02:00* Test Item Value Reference Range Interpretation Comments Stool Occult Blood (test code = 2335-8) POSITIVE NEGATIVE [facility] Occult Yfeub6630-04-14 17:02:00* Test Item Value Reference Range Interpretation Comments Stool Occult Blood (test code = 2335-8) POSITIVE NEGATIVE [facility]ult Sahnr6520-85-47 17:02:00* Test Item Value Reference Range Interpretation Comments Stool Occult Blood (test code = 2335-8) POSITIVE NEGATIVE [facility]it[facility]12 Lafdq3433-26-50 07:51:00* Test Item Value Reference Range Interpretation Comments Vitamin B12 Level (test code = 86984-2) 263 213816 [facility]manVitamin B12 Puczf3219-90-02 07:51:00* Test Item Value Reference Range Interpretation Comments Vitamin B12 Level (test code = 71297-0) 263 213-816 [facility]manVitamin B12 Itmmw6011-55-82 07:51:00* Test Item Value Reference Range Interpretation Comments Vitamin B12 Level (test code = 11796-6) 263 213-303 [facility] KaufmanCT ABDOMEN/PELVIS BC9547-59-05 07:46:00 [facility] [address] [address] Patient Name: ANDREA HOOVER MR #: [id number] : 1959 Age/Sex: 59/F Req #: [id number] Adm Physician: AMINAH ROBBINS MD Ordered by: AMINAH ROBBINS MD Report #: [id number] [facility]: [facility] Room/Bed: [facility] Procedure: [id number] CT/CT ABDOMEN/PELVIS WO Exam Date: 03/27/19 Exam Guru e: 1400 REPORT STATUS: Signed CT Abdomen and Pelvis without contrast INDICATION: Diarrhea, leukocytosis, fever/abd pain, please give oral contrast [id number] TECHNIQUE: Thin collimation axial images obtained from the diaphragm to the level of the pubic symphysis without nonionic intravenous contrast. Enteric contrast was a dministered. Dose reduction techniques used: Automated exposure control, a djustment of the mAs and/or kVp according to patient size, standardized low-do se protocol, and/or iterative reconstruction technique. RADIATION DOSE: Total DLP: 364.6 mGy*cm Estimated effective dose: (DLP x 0.015 x si ze factor) mSv CTDIvol has been reviewed. It is below the limits set by [facility] Radiation Protocol Committee (RPC). COMPARISON: CT abdomen/pelvis 03/24. ABDOMEN FINDINGS: Lung Bases: Increasing left basilar atelecta sis. Trace right basilar atelectasis. The visualized portion of the mediastinu m is normal. Liver: Mild steatosis. Stable calcification surgical clip in t he lateral aspect of the right lobe. Stable lobulated contours. No soft tissue mass. Gallbladder: Absent. No ductal dilatation. Pancreas: Normal at tenuation without mass. Spleen: Normal size without mass. Adrenal Glan ds: No evidence for mass. Kidneys: Right: No hydronephrosis or perinephr ic inflammation. Punctate renovascular calcifications or collecting system ca lculi. Left: No hydronephrosis or perinephric inflammation.. High attenua ting lesion in the lower pole is stable. Stable renovascular calcifications. Lymph Nodes: No lymphadenopathy. Aorta: Normal in diameter with scatte red calcifications PELVIS FINDINGS: Bowel: Stomach: Normal. Sma ll Bowel: Stable postoperative changes of the small bowel. Enteric contrast is present throughout. No mural thickening or mesenteric edema. Large Bowel: Ent jeff contrast extends to the mid descending colon. Moderate burden of stool in the descending colon with absence of stool in the ascending and transverse co lanre. No focal mural thickening or pericolonic inflammation. Appendix: Norm al. Bladder: Normal. Ureters: No ureteral dilatation. The uterus is absent. No adnexal mass. Peritoneum/retroperitoneum: No free fluid or fl uid collection.. Bones: No focal osseous lesions. Soft tissues: Bilate ral anterior abdominal wall subcutaneous inflammation is similar. IMPRESS ION: 1. Moderate burden of stool in the descending colon. No evidence for bowel obstruction or inflammation. Normal appendix. 2. Increasing bibasil ar atelectasis. 3. Other findings as described above are stable. Anneliese d by: Dr. Jeffrey Hoover MD on 03/28/2019 7:52 AM Dictated By: KEENAN HOOVER MD 1 Transcribed By: RUCHI on 03/28/19751 COPY TO: AMINAH ROBBINS MD [id number] 07:39:00* Test Item Value Reference Range Interpretation Comments Ferritin (test code = 2276-4) 303.13 4.63-204.00 [facility] 07:39:00* Test Item Value Reference Range Interpretation Comments Ferritin (test code = 2276-4) 303.13 4.63-204.00 H [facility]Ferritin2019-11-10 07:39:00* Test Item Value Reference Range Interpretation Comments Ferritin (test code = 2276-4) 303.13 4.63-204.00 [facility]manIron [id number] 07:23:00* Test Item Value Reference Range Interpretation Comments Iron Level (test code = 2498-4) 12 50-170 L [facility]manTotal Iron Binding Hpczkzpl1750-91-85 07:23:00* Test Item Value Reference Range Interpretation Comments Total Iron Binding Capacity (test code = 2500-7) 221 261-4 78 L [facility]manPercent Iron Ypqsxownxg1218-54-06 07:23:00* Test Item Value Reference Range Interpretation Comments Percent Iron Saturation (test code = 2502-3) 5 15-50 L [facility]manTransferrin2019-11-10 07:23:00* Test Item Value Reference Range Interpretation Comments Transferrin (test code = 3034-6) 158 180-382 L [facility] Conhytsrp0546-76-88 06:54:00* Test Item Value Reference Range Interpretation Comments Total Bilirubin (test code = 1975-2) 0.2 0.2-1.2 [facility]manDirect Vjgbyjtzy2922-68-34 06:54:00* Test Item Value Reference Range Interpretation Comments Direct Bilirubin (test code = 19585-4) 0.1 0.0-0.5 [facility]manAspartate Amino Transf (AST/SGOT) 2019-03-28 06:54:00* Test Item Value Reference Range Interpretation Comments Aspartate Amino Transf (AST/SGOT) (test code = Aspartate Amino Transf (AST/SGOT)) 13 5-34 [facility]manAlanine Aminotransferase (ALT/SGPT) 2019-03-28 06:54:00* Test Item Value Reference Range Interpretation Comments Alanine Aminotransferase (ALT/SGPT) (test code = 1742-6) 7 0-55 [facility]manTotal [id number] 06:54:00* Test Item Value Reference Range Interpretation Comments Total Protein (test code = 2885-2) 7.0 6.5-8.1 [facility]manAlbumin2019-11-10 06:54:00* Test Item Value Reference Range Interpretation Comments Albumin (test code = 1751-7) 2.4 3.5-5.0 L [facility]aufmanAlkaline Einbmrilsvo4789-17-06 06:54:00* Test Item Value Reference Range Interpretation Comments Alkaline Phosphatase (test code = 6768-6) 112 40-150 [facility]manLipase2019-11-10 06:54:00* Test Item Value Reference Range Interpretation Comments Lipase (test code = 3040-3) 18 8-78 [facility]manProthrombin Pwqx5098-32-09 06:52:00* Test Item Value Reference Range Interpretation Comments Prothrombin Time (test code = 5902-2) 15.1 11.9-14.5 H [facility]aufmanProthromb Time International Ratio 2019-03-28 06:52:00* Test Item Value Reference Range Interpretation Comments Prothromb Time International Ratio (test code = 6301-6) 1.13 Oral Anticoagulant Therapy INR Values:1. Low Intensity Therapy 1.5 - 2.02 . Moderate Intensity Therapy 2.0 - 3.03. High Intensity Therapy(1) 2.5 - 3. 54. High Intensity Therapy(2) 3.0 - 4.05. Panic Value INR > 5.0 [facility]aufmanActivated Partial Thromboplast Time 2019-03-28 06:52:00* Test Item Value Reference Range Interpretation Comments Activated Partial Thromboplast Time (test code = 65203-8) 45.4 23.8-35.5 H [facility] KaufmanPercent Reticulocyte Uqqwy7102-84-16 06:37:00* Test Item Value Reference Range Interpretation Comments Percent Reticulocyte Count (test code = 49525-6) 1.1 0.8-2 .2 [facility]Percent Reticulocyte Ivqhb1281-50-06 06:37:00* Test Item Value Reference Range Interpretation Comments Percent Reticulocyte Count (test code = 54141-3) 1.1 0.8-2 .2 [facility]manPercent Reticulocyte Lsujo0292-37-61 06:37:00* Test Item Value Reference Range Interpretation Comments Percent Reticulocyte Count (test code = 47016-0) 1.1 0.8-2 .2 [facility]manFOOT RIGHT [id number] 14:13:00 [facility] [address] [address] Patient Name: ANDREA HOOVER MR #: [id number] : 1959 Age/Sex: 59/F Req #: [id number] Adm Physician: AMINAH ROBBINS MD Ordered by: AMINAH ROBBINS MD Report #: [id number] Location: [facility] Room/Bed: [place] [address] Procedure: [id number] DX/FOOT RIGHT COMPLETE Exam Date: 03/25/19 Exam Time : 1349 REPORT STATUS: Signed Right foot, 3 views. History: Pain in right foot and great toe. Fin dings: Minimal vascular calcifications are present. There is no evidence of a radiopaque foreign body. Bone mineralization is normal. Deformity of the third proximal talus is consistent with old trauma. There is no evidence of acute f racture or dislocation. There are no lytic or sclerotic lesions. Degenerative changes are noted in the toes. IMPRESSION: No acute osseous abnormalit y or radiopaque foreign body. Signed by: Phill Nelson on 03/25/2019 2:15 PM Dictated By: PHILL NELSON MD 1416 Transcribed By: RUCHI on 03/25/19 2167 COPY TO: AMINAH SANDRA MD [id number] 06:01:00* Test Item Value Reference Range Interpretation Comments Globulin (test code = 63139-5) 4.3 2.3-3.5 H [facility]manAlbumin/Globulin Eazec0141-23-76 06:01:00 * Test Item Value Reference Range Interpretation Comments Albumin/Globulin Ratio (test code = 1759-0) 0.7 0.8-2.0 L [facility]aufmanDifferential Total Cells Counted 2019-03-24 21:08:00* Test Item Value Reference Range Interpretation Comments Differential Total Cells Counted (test code = Differen tial Total Cells Counted) 100 [facility]manNeutrophils % (Manual)2019-03-24 21:08:00 * Test Item Value Reference Range Interpretation Comments Neutrophils % (Manual) (test code = 71173-1) 83 40-74 H [facility]aufmanLymphocytes % (Manual)2019-03-24 21:08:00 * Test Item Value Reference Range Interpretation Comments Lymphocytes % (Manual) (test code = 737-7) 8 19-48 L [facility]manMonocytes % (Manual)2019-03-24 21:08:00* Test Item Value Reference Range Interpretation Comments Monocytes % (Manual) (test code = 744-3) 9 3.4-9.0 [facility]aufmanPlatelet Gjijddbk3519-74-75 21:08:00* Test Item Value Reference Range Interpretation Comments Platelet Estimate (test code = 72798-4) ADEQUATE [facility]aufmanPlatelet Morphology Qwheotk1117-24-94 21:08:00* Test Item Value Reference Range Interpretation Comments Platelet Morphology Comment (test code = 00090-0) NORMAL [facility]manHypochromasia2019-11-06 21:08:00* Test Item Value Reference Range Interpretation Comments Hypochromasia (test code = 728-6) SLIGHT [facility]manRed Cell Morphology Oonbwqj1581-90-78 21:08:00* Test Item Value Reference Range Interpretation Comments Red Cell Morphology Comment (test code = 6742-1) NORMAL [facility]CT [facility]PELVIS [id number] 19:57:00 [facility] [address] [address] Patient Name: ANDREA HOOVER MR #: [id number] : 1959 Age/Sex: 59/F Req #: [id number] Adm Physician: Ordered by: DENZEL KAY MD Report #: [id number] Location: ER Room/Bed: Procedure: [id number] CT/CT ABDOMEN/PELVIS WO Exam Date: Exam Time: REPORT STATUS: Signed CT Abdomen an d Pelvis without contrast INDICATION: Abdominal pain, fever, PAIN TECHNIQUE: Thin collimation axial images obtained from the diaphragm to the l evel of the pubic symphysis without nonionic intravenous contrast. Dose re duction techniques used: Automated exposure control, adjustment of the mAs and /or kVp according to patient size, standardized low-dose protocol, and/or iter ative reconstruction technique. RADIATION DOSE: Total DLP: 323.31 mG y*cm Estimated effective dose: (DLP x 0.015 x size factor) mSv CTD Ivol has been reviewed. It is below the limits set by the Radiation Protocol C ommittee (RPC). COMPARISON: CT lumbar spine 08/16/2018. ABDOMEN FINDIN GS: Lung Bases: Subsegmental atelectasis in the left lower lobe.. The visua lized portion of the mediastinum is normal. Liver: Mild steatosis. Calcif ication or surgical clip in the lateral aspect of the right lobe. No evidence of soft tissue mass. The liver is mildly lobulated in contour. Gallbladde r: Absent. No ductal dilatation. Pancreas: Normal attenuation without mass . Spleen: Normal size without mass. Adrenal Glands: No evidence for ma ss. Kidneys: Right: Punctate intrarenal calculi versus vascular calcific ations. No cortical mass or hydronephrosis Left: Multiple intrarenal va scular calcifications. No evidence of calculus. High attenuating lesion in th e lower pole measures 1.6 x 1.5 cm and 60 Hounsfield units suggestive of hemor rhage/protein. This is grossly stable. Anterior to this is a low attenuating l esion measuring 10 mm suggestive of a simple cyst. Lymph Nodes: No lympha denopathy. Aorta: The aorta is normal in diameter with scattered calcifica tions. There are scattered calcifications in the splenic artery. PELVIS F INDINGS: Bowel: Stomach: Normal in caliber with normal wall thickness. Small Bowel: Postoperative changes of the small bowel. No dilatation or mes enteric inflammation. Large Bowel: Normal in caliber with normal wall thicknes s. Appendix: Normal. Bladder: Normal. Ureters: No ureteral dilatatio n or calculus. The uterus is absent. No adnexal mass. Bones: No focal osseous lesions. Soft tissues: Focal subcutaneous inflammation on either si de of the abdominal wall the level the umbilicus may be the result of injectio ns. IMPRESSION: 1. No evidence of bowel obstruction or inflammation. Normal appendix. Postoperative changes of the small bowel. 2. No evidenc e of obstructive uropathy. High attenuating lesion in the left kidney may repr esent a proteinaceous/hemorrhagic cyst. This can be confirmed with renal ultra sound on an outpatient basis. 3. Mild steatosis. Lobulated hepatic contours are suggestive of macronodular cirrhosis. Signed by: Dr. Jeffrey mckeon MD on 03/24/2019 8:04 PM Dictated By: JEFFREY HOOVER MD Electronic ally Signed By: JEFRFEY HOOVER MD on 03/24/192003 Transcribed By: RUCHI huang 03/24/192003 COPY TO: DENZEL KAY MD Urine [id number] 18:42:00* Test Item Value Reference Range Interpretation Comments Urine WBC (test code = 5821-4) NONE 0-5 [facility] [id number] 18:42:00* Test Item Value Reference Range Interpretation Comments Urine RBC (test code = 32984-0) NONE 0-5 [facility]manU[facility] Tymwroka2180-09-22 18:42:00* Test Item Value Reference Range Interpretation Comments Urine Bacteria (test code = 22388-1) FEW NONE [facility] Epithelial [id number] 18:42:00 * Test Item Value Reference Range Interpretation Comments Urine Epithelial Cells (test code = 81345-7) FEW NONE [facility]manInfluenza Virus Types A,B Antigen 2019-03-24 18:39:00* Test Item Value Reference Range Interpretation Comments Influenza Virus Types A,B Antigen (test code = 04928-3) NEGATIVE NEGATIVE [facility]manU[facility] Tdril2387-10-21 18:33:00* Test Item Value Reference Range Interpretation Comments Urine Color (test code = 5778-6) YELLOW YELLOW [facility]manU[facility] Hoigtai1271-83-46 18:33:00* Test Item Value Reference Range Interpretation Comments Urine Clarity (test code = 14535-8) SL CLOUDY CLEAR [facility]manUrine Specific Xiutjqo9520-48-19 18:33:00 * Test Item Value Reference Range Interpretation Comments Urine Specific Bostic (test code = 5811-5) >=1.030 1.010-1.02 5 [facility]manU[facility] [id number] 18:33:00* Test Item Value Reference Range Interpretation Comments Urine pH (test code = 70692-6) 6 5-7 [facility] Leukocyte [id number] 18:33:00* Test Item Value Reference Range Interpretation Comments Urine Leukocyte Esterase (test code = 21799-2) NEGATIVE NEGATIV E [facility] Uzzpcpj9425-56-72 18:33:00* Test Item Value Reference Range Interpretation Comments Urine Nitrite (test code = 53984-3) NEGATIVE NEGATIVE [facility] [id number] 18:33:00* Test Item Value Reference Range Interpretation Comments Urine Protein (test code = 08757-6) 3+ NEGATIVE H [facility]manU[facility] Glucose (UA)2019-03-24 18:33:00* Test Item Value Reference Range Interpretation Comments Urine Glucose (UA) (test code = 49036-9) NEGATIVE NEGATIVE [facility] Vcpengq0171-19-08 18:33:00* Test Item Value Reference Range Interpretation Comments Urine Ketones (test code = 20856-9) NEGATIVE NEGATIVE [facility] Bofecewxhmtr8680-82-44 18:33:00* Test Item Value Reference Range Interpretation Comments Urine Urobilinogen (test code = 16410-6) 0.2 0.2-1 [facility] Rtjcvjdtu6084-02-11 18:33:00* Test Item Value Reference Range Interpretation Comments Urine Bilirubin (test code = 1977-8) NEGATIVE NEGATIVE [facility] Pvpyi0829-41-93 18:33:00* Test Item Value Reference Range Interpretation Comments Urine Blood (test code = 63866-4) NEGATIVE NEGATIVE [facility]manGroup A Streptococcus Tcwgce5211-51-98 18:29:00* Test Item Value Reference Range Interpretation Comments Group A Streptococcus Screen (test code = 84628-2) NEGATIVE NEG ATIVE [facility] Ckhz5464-05-12 18:28:00* Test Item Value Reference Range Interpretation Comments Urine Test (test code = 2106-3) NEGATIVE NEGATIVE [facility] Oqtm1826-10-19 18:28:00* Test Item Value Reference Range Interpretation Comments Urine Test (test code = 2106-3) NEGATIVE NEGATIVE [facility] [id number] 18:28:00* Test Item Value Reference Range Interpretation Comments Urine Test (test code = 2106-3) NEGATIVE NEGATIVE [facility]manPOCT-GLUCOSE [id number] 13:57:00* Test Item Value Reference Range Interpretation Comments POC-GLUCOSE METER (BEAKER) (test code = 1538) 361 mg/dL 70-110 H TESTED AT [facility] [address] [address] POCT-GLUCOSE [id number] 09:05:00* Test Item Value Reference Range Interpretation Comments POC-GLUCOSE METER (BEAKER) (test code = 1538) 324 mg/dL 70-110 H TESTED AT [facility] [address] [facility] [address] BASIC METABOLIC [id number] 08:11:00* Test Item Value Reference Range Interpretation Comments SODIUM (BEAKER) (test code = 381) 133 meq/L 136-145 L POTASSIUM (BEAKER) (test code = 379) 4.7 meq/L 3.5-5.1 CHLORIDE (BEAKER) (test code = 382) 106 meq/L 98-107 CO2 (BEAKER) (test code = 355) 21 meq/L 22-29 L BLOOD UREA NITROGEN (BEAKER) (test code = 354) 22 mg/dL 7-21 H CREATININE (BEAKER) (test code = 358) 1.67 mg/dL 0.57-1.25 H GLUCOSE RANDOM (BEAKER) (test code = 652) 333 mg/dL 70-105 H CALCIUM (BEAKER) (test code = 697) 8.6 mg/dL 8.4-10.2 EGFR (BEAKER) (test code = 1092) 38 mL/min/1.73 sq m ESTIMATED GFR IS NOT ACCURATE CREATININE CLEARANCE IN PREDICTING GLOMERULAR FILTRATION RATE. ESTIMATED GFR IS NOT APPLICABLE FOR DIALYSIS PATIENTS. CBC W/PLT COUNT & AUTO [id number] 06:19:00* Test Item Value Reference Range Interpretation Comments WHITE BLOOD CELL COUNT (BEAKER) (test code = 775) 8.9 K/ L 3.5- 10.5 RED BLOOD CELL COUNT (BEAKER) (test code = 761) 3.44 M/ L 3.93-5 .22 L HEMOGLOBIN (BEAKER) (test code = 410) 9.1 GM/DL 11.2-15.7 L HEMATOCRIT (BEAKER) (test code = 411) 29.3 % 34.1-44.9 L MEAN CORPUSCULAR VOLUME (BEAKER) (test code = 753) 85.2 fL 79. 4-94.8 MEAN CORPUSCULAR HEMOGLOBIN (BEAKER) (test code = 751) 26.5 pg 25.6-32.2 MEAN CORPUSCULAR HEMOGLOBIN CONC (BEAKER) (test code = 752) 31.1 GM/DL 32.2-35.5 L RED CELL DISTRIBUTION WIDTH (BEAKER) (test code = 412) 13.2 % 11.7-14.4 PLATELET COUNT (BEAKER) (test code = 756) 333 K/CU MM 150-450 MEAN PLATELET VOLUME (BEAKER) (test code = 754) 10.2 fL 9.4-12 .3 NUCLEATED RED BLOOD CELLS (BEAKER) (test code = 413) 0 /100 WBC 0 -0 NEUTROPHILS RELATIVE PERCENT (BEAKER) (test code = 429) 50 % LYMPHOCYTES RELATIVE PERCENT (BEAKER) (test code = 430) 41 % MONOCYTES RELATIVE PERCENT (BEAKER) (test code = 431) 8 % EOSINOPHILS RELATIVE PERCENT (BEAKER) (test code = 432) 1 % BASOPHILS RELATIVE PERCENT (BEAKER) (test code = 437) 0 % NEUTROPHILS ABSOLUTE COUNT (BEAKER) (test code = 670) 4.41 K/ L 1.56-6.13 LYMPHOCYTES ABSOLUTE COUNT (BEAKER) (test code = 414) 3.60 K/ L 1.18-3.74 MONOCYTES ABSOLUTE COUNT (BEAKER) (test code = 415) 0.68 K/ L 0. 24-0.36 H EOSINOPHILS ABSOLUTE COUNT (BEAKER) (test code = 416) 0.12 K/ L 0.04-0.36 BASOPHILS ABSOLUTE COUNT (BEAKER) (test code = 417) 0.03 K/ L 0. 01-0.08 IMMATURE GRANULOCYTES-RELATIVE PERCENT (BEAKER) (test code = 2801) 0 % 0-1 POCT-GLUCOSE [id number] 21:47:00* Test Item Value Reference Range Interpretation Comments POC-GLUCOSE METER (BEAKER) (test code = 1538) 328 mg/dL 70-110 H TESTED AT [facility] [address] [address] RAD, ABDOMEN, 2 [id number] 20:38:00Reason for exam:->vomiting , diarrhea FINAL REPORT Exam: KUB - 2 views Clinical History: Vomiti ng, diarrhea Comparison: KUB of 01/21/2015 Findings: There are numerous air-fluid levels in loops of nondilated small bowel. Normal large bowel gas pattern. Multi ple calcific densities overlying the expected location of the upper pole of the left kidney measuring up to 3 mm may represent renal calculi versus ingested mat erial. No free air. The osseous structures appear unremarkable. Impression:Air-f luid levels within nondilated loops of small bowel, possibly representing ileus. Calcific densities overlying the upper pole of the left kidney may represent re nal calculi versus ingested material. Signed: Juan Crawford Verified Date /Time: 12/04/2018 20:38:57 Reading Location: [facility] C013W Consult Reading Room U/S, ABDOMINAL, [id number] 16:53:00Reason for exam:->vomiting diarrheaFINAL REPORT Ultrasound of the Abdomen, 12/04/2018. Clinical History: Vomiting. Diarrhea. Comparison: 01/14/2015. 05/10/2013. Discussion: Sonographic evaluation of the abdomen is performed. Liver: 15.3 cm in length at the right midclavicular line, normal in size. Normal echogenicity. Homogen eous echotexture. No mass. Main portal vein diameter 1.5 cm. Biliary tree: C ommon duct 6 mm. No biliary dilatation. Gallbladder: Absent. Gallbladder fossa appears unremarkable. Pancreas: Head, body, and proximal tail unremarkable. As cites: None. Spleen: 7.1 cm in length, normal in size. Kidneys: Right kidn ey 11.4 cm in length, normal in size, with cortical thickness of 1.6 cm. Left k idney 11.1 cm in length, normal in size, with cortical thickness of 1.4 cm. Nor mal cortical echogenicity. There is an exophytic cyst at the lower pole left ki dney, unchanged. No shadowing calculus. No hydronephrosis. IVC/Aorta: Segment s partially seen. Unremarkable. Impression: Cholecystectomy and left renal cyst . Otherwise unremarkable abdominal ultrasound. Signed: Jenna Schroedereport Verified Date/Time: 12/04/2018 16:53:00 Reading Location: [facility] 10th Sdr Radiolo gy Reading Room Electronically signed by: JENNA SCHROEDER M.D. on 12/04 04:53 PM POCT-GLUCOSE [id number] 12:21:00* Test Item Value Reference Range Interpretation Comments POC-GLUCOSE METER (BEAKER) (test code = 1538) 349 mg/dL 70-110 H TESTED AT [address] [address] POCT-GLUCOSE [id number] 08:05:00* Test Item Value Reference Range Interpretation Comments POC-GLUCOSE METER (BEAKER) (test code = 1538) 352 mg/dL 70-110 H TESTED AT [facility]-[address] [address] POCT-GLUCOSE [id number] 03:08:00* Test Item Value Reference Range Interpretation Comments POC-GLUCOSE METER (BEAKER) (test code = 1538) 389 mg/dL 70-110 H TESTED AT [facility] [id number] POCT-GLUCOSE [id number] 23:55:00* Test Item Value Reference Range Interpretation Comments POC-GLUCOSE METER (BEAKER) (test code = 1538) 357 mg/dL 70-110 H TESTED AT [address] [address] URINALYSIS W/ [id number] 22:31:00* Test Item Value Reference Range Interpretation Comments COLOR (BEAKER) (test code = 470) Yellow CLARITY (BEAKER) (test code = 469) Clear SPECIFIC GRAVITY UA (BEAKER) (test code = 468) 1.015 1.001-1 .035 PH UA (BEAKER) (test code = 467) 5.5 5.0-8.0 PROTEIN UA (BEAKER) (test code = 464) 100 mg/dL Negative A GLUCOSE UA (BEAKER) (test code = 365) >=1000 mg/dL Negative A KETONES UA (BEAKER) (test code = 371) Negative Negative BILIRUBIN UA (BEAKER) (test code = 462) Negative Negative BLOOD UA (BEAKER) (test code = 461) Negative Negative NITRITE UA (BEAKER) (test code = 465) Negative Negative LEUKOCYTE ESTERASE UA (BEAKER) (test code = 466) Negative Negat glenis UROBILINOGEN UA (BEAKER) (test code = 463) 0.2 mg/dL 0.2-1.0 BACTERIA (BEAKER) (test code = 517) Moderate RBC UA-MANUAL (BEAKER) (test code = 1659) <5 /HPF WBC UA-MANUAL (BEAKER) (test code = 1661) <5 /HPF SQUAMOUS EPITHELIAL MANUAL (BEAKER) (test code = 1663) 5-10 /HPF SOURCE(BEAKER) (test code = 2795) POCT-GLUCOSE [id number] 21:34:00* Test Item Value Reference Range Interpretation Comments POC-GLUCOSE METER (BEAKER) (test code = 1538) 394 mg/dL 70-110 H TESTED AT [facility]-[address] [address] KETONE, [id number] 20:58:00* Test Item Value Reference Range Interpretation Comments KETONES, BLOOD (BEAKER) (test code = 1103) 0.1 mmol/L <0.4 POCT-GLUCOSE [id number] 20:48:00* Test Item Value Reference Range Interpretation Comments POC-GLUCOSE METER (BEAKER) (test code = 1538) 410 mg/dL 70-110 HH TESTED AT [place] [id number] BASIC METABOLIC [id number] 20:06:00* Test Item Value Reference Range Interpretation Comments SODIUM (BEAKER) (test code = 381) 135 meq/L 135-148 POTASSIUM (BEAKER) (test code = 379) 4.8 meq/L 3.6-5.5 CHLORIDE (BEAKER) (test code = 382) 95 meq/L 98-106 L CO2 (BEAKER) (test code = 355) 23 meq/L 24-32 L BLOOD UREA NITROGEN (BEAKER) (test code = 354) 43 mg/dL 10-26 H CREATININE (BEAKER) (test code = 358) 2.01 mg/dL 0.50-1.20 H GLUCOSE RANDOM (BEAKER) (test code = 652) 471 mg/dL 70-110 HH CALCIUM (BEAKER) (test code = 697) 8.5 mg/dL 8.5-10.5 EGFR (BEAKER) (test code = 1092) 31 mL/min/1.73 sq m ESTIMATED GFR IS NOT ACCURATE CREATININE CLEARANCE IN PREDICTING GLOMERULAR FILTRATION RATE. ESTIMATED GFR IS NOT APPLICABLE FOR DIALYSIS PATIENTS. HEPATIC FUNCTION [id number] 20:00:00* Test Item Value Reference Range Interpretation Comments TOTAL PROTEIN (BEAKER) (test code = 770) 7.4 gm/dL 6.0-8.5 ALBUMIN (BEAKER) (test code = 1145) 4.0 g/dL 3.5-5.0 BILIRUBIN TOTAL (BEAKER) (test code = 377) 0.4 mg/dL 0.1-1.2 BILIRUBIN DIRECT (BEAKER) (test code = 706) 0.2 mg/dL 0.0-0.4 ALKALINE PHOSPHATASE (BEAKER) (test code = 346) 129 U/L 30-115 H AST (SGOT) (BEAKER) (test code = 353) 24 U/L 5-40 ALT (SGPT) (BEAKER) (test code = 347) 24 U/L 5-50 [id number] 20:00:00* Test Item Value Reference Range Interpretation Comments LIPASE (BEAKER) (test code = 749) 124 U/L 40-240 CBC W/PLT COUNT & AUTO [id number] 19:59:00* Test Item Value Reference Range Interpretation Comments WHITE BLOOD CELL COUNT (BEAKER) (test code = 775) 10.5 K/ L 4.0- 10.0 H RED BLOOD CELL COUNT (BEAKER) (test code = 761) 3.93 M/ L 4.00-5 .00 L HEMOGLOBIN (BEAKER) (test code = 410) 10.6 GM/DL 12.0-15.0 L HEMATOCRIT (BEAKER) (test code = 411) 32.8 % 36.0-45.0 L MEAN CORPUSCULAR VOLUME (BEAKER) (test code = 753) 83.4 fL 82. 0-99.0 MEAN CORPUSCULAR HEMOGLOBIN (BEAKER) (test code = 751) 27.1 pg 27.0-33.0 MEAN CORPUSCULAR HEMOGLOBIN CONC (BEAKER) (test code = 752) 32.4 GM/DL 32.0-36.0 RED CELL DISTRIBUTION WIDTH (BEAKER) (test code = 412) 12.9 % 10.3-14.2 PLATELET COUNT (BEAKER) (test code = 756) 330 K/CU MM 150-430 MEAN PLATELET VOLUME (BEAKER) (test code = 754) 8.2 fL 6.5-10 .5 NEUTROPHILS RELATIVE PERCENT (BEAKER) (test code = 429) 44 % LYMPHOCYTES RELATIVE PERCENT (BEAKER) (test code = 430) 43 % MONOCYTES RELATIVE PERCENT (BEAKER) (test code = 431) 10 % EOSINOPHILS RELATIVE PERCENT (BEAKER) (test code = 432) 2 % BASOPHILS RELATIVE PERCENT (BEAKER) (test code = 437) 1 % NEUTROPHILS ABSOLUTE COUNT (BEAKER) (test code = 670) 4.57 K/ L 1.80-8.00 LYMPHOCYTES ABSOLUTE COUNT (BEAKER) (test code = 414) 4.49 K/ L 1.48-4.50 MONOCYTES ABSOLUTE COUNT (BEAKER) (test code = 415) 1.08 K/ L 0. 00-1.30 EOSINOPHILS ABSOLUTE COUNT (BEAKER) (test code = 416) 0.21 K/ L 0.00-0.50 BASOPHILS ABSOLUTE COUNT (BEAKER) (test code = 417) 0.12 K/ L 0. 00-0.20 CT, BRAIN, WITHOUT [id number] 19:19:00Reason for exam:->headacheIs the patient ?->UnknownWhat is the patient's sedation requirement?->No SedationFINAL REPORT CT, BRAIN, WITHOUT CONTRAST, CT, SPINE, CERVICAL, WO CONTRAST CLINICAL INDICATION: Headache, post traumaheadache COMPARISON: None TECHNIQUE: Noncontrast axial CT imaging of the brain and cervical spine. DOSE REDUCTION: Dose modulation, iterative reconstruction, and/or weight-based adjustment of the mA/kV was utilized to reduce the radiation dose to as low as reasonably achievable. FINDINGS:CT BRAIN W/O: No intracranial hemorrhage, midline shift or mass effect. Midline structures are normally developed. No hydrocephalus. Orbits are within normal limits. No obstructive paranasal sinus disease. CT CERVICAL SPINE W/O: Reversal of normal cervical lordosis, favored to be secondary to neck extension without malalignment of the posterior elements. 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 Vertebral body height is maintained.Disc spaces are maintained. Groundglass opacities within the visualized upper lobes, nonspecific. IMPRESSION: No acute findings within the brain or cervical spine If there is persistent clinical concern for intracranial pathology, MR examination is recommended for further characterization. Signed: Kacey Alexis MDReport Verified Date/Time: 12/03/2018 19:19:03 Reading Location: [address] Neuro Reading Room , SPINE, CERVICAL, WO [id number] 19:19:00Reason for exam:->neck painWhat is the patient's sedation requirement?->No SedationIs the patient ?->UnknownFINAL REPORT CT, BRAIN, WITHOUT CONTRAST, CT, SPINE, CERVICAL, WO CONTRAST CLINICAL INDICATION: Headache, post traumaheadache COMPARISON: None TECHNIQUE: Noncontrast axial CT imaging of the brain and cervical spine. DOSE REDUCTION: Dose modulation, iterative reconstruction, and/or weight-based adjustment of the mA/kV was utilized to reduce the radiation dose to as low as reasonably achievable. FINDINGS:CT BRAIN W/O: No intracranial hemorrhage, midline shift or mass effect. Midline structures are normally developed. No hydrocephalus. Orbits are within normal limits. No obstructive paranasal sinus disease. CT CERVICAL SPINE W/O: Reversal of normal cervical lordosis, favored to be secondary to neck extension without malalignment of the posterior elements. 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 Vertebral body height is maintained.Disc spaces are maintained. Groundglass opacities within the visualized upper lobes, nonspecific. IMPRESSION: No acute findings within the brain or cervical spine If there is persistent clinical concern for intracranial pathology, MR examinati on is recommended for further characterization. Signed: Kacey Alexis MDReport Verified Date/Time: 12/03/2018 19:19:03 Reading Location: [address] Electronically signed by: KACEY ALEXIS MD on 9 07:19 PM L SPINE 2-3 VEWS - [id number] 19:36:00 [place] [address] Patient Name: ANDREA HOOVER MR #: [id number] : 1960 Age/Sex: 58/F Req #: [id number] Adm Physician: Ordered by: JORGE BLOUNT MD Report #: [id number] Location: [facility] Room/Bed: Procedure: HOPD/L SPINE 2-3 VEWS - HOPD Exam Date: Exam Time: REPORT STATUS: Signed Radiograp hs of the lumbar spine HISTORY: Pain COMPARISON: None available. FINDINGS: Bones: No acute displaced fracture. Osseous alignment is wi thin normal limits. Joints: Scattered degenerative change. No osseous ero michelle Soft tissues: The soft tissues appear unremarkable. IMPRESSI ON: Scattered degenerative change. No osseous erosion Signed by: Dr. Col danyell Gilbert M.D. on 12/01/2018 7:37 PM Dictated By: RONA GILBERT MD, MD [place] ctronically Signed By: RONA GILBERT MD, MD on 12/01/181936 Transcribed By: Motor2 VAN on 12/01/181936 COPY TO: JORGE BLOUNT MD C SPINE 2--3 VEWS - [id number] 19:35:00 [place] [address] Patient Name: ANDREA HOOVER MR #: [id number] : 1960 Age/Sex: 58/F Req #: [id number] Adm Physician: Ordered by: JORGE BLOUNT MD Report #: [id number] Location: [facility] Room/Bed: Procedure: HOPD/C SPINE 2--3 VEWS - HOPD Exam Date: Exam Time: REPORT STATUS: Signed Radiogra phs of the cervical spine - 3 views HISTORY: Pain COMPARISON: None avail able. FINDINGS: Bones: No acute displaced fracture. Osseous al ignment is within normal limits. Joints: Scattered degenerative change. N o osseous erosion Soft tissues: The soft tissues appear unremarkable. IMPRESSION: Scattered degenerative change. No osseous erosion Subtl e fracture and soft tissue injury cannot be excluded based on this exam. If in dicated MRI may be of benefit. Signed by: Dr. Rona Gilbert M.D. on 9 7:36 PM Dictated By: RONA GILBERT MD, MD 35 Transcribed By: RUCHI on 12/01/181935 COPY TO: JORGE BLOUNT MD Bedside [id number] 11:38:00* Test Item Value Reference Range Interpretation Comments Bedside Glucose (test code = 66734-3) 195 70-120 H Meter ID: [id number] Health KaufmanBedside Glucose 2018-08-18 11:38:00* Test Item Value Reference Range Interpretation Comments Bedside Glucose (test code = 84142-7) 195 70-120 H Meter ID: [id number] Health KaufmanDifferential Total Cells Ttfazax9371-95-68 09:00:00* Test Item Value Reference Range Interpretation Comments Differential Total Cells Counted (test code = Differen tial Total Cells Counted) 100 [facility]manNeutrophils % (Manual)2018-08-18 09:00:00 * Test Item Value Reference Range Interpretation Comments Neutrophils % (Manual) (test code = 01705-9) 43 40-74 [facility]aufmanLymphocytes % (Manual)2018-08-18 09:00:00 * Test Item Value Reference Range Interpretation Comments Lymphocytes % (Manual) (test code = 737-7) 46 19-48 [facility]manMonocytes % (Manual)2018-08-18 09:00:00* Test Item Value Reference Range Interpretation Comments Monocytes % (Manual) (test code = 744-3) 8 3.4-9.0 [facility]manEosinophils % (Manual)2018-08-18 09:00:00 * Test Item Value Reference Range Interpretation Comments Eosinophils % (Manual) (test code = 714-6) 1 0-7 [facility]aufmanReactive Ciabjtnytcx4463-37-20 09:00:00* Test Item Value Reference Range Interpretation Comments Reactive Lymphocytes (test code = 97785-4) 2 [facility] KaufmanPlatelet Iosiuisl5328-69-76 09:00:00* Test Item Value Reference Range Interpretation Comments Platelet Estimate (test code = 53235-2) ADEQUATE [facility] KaufmanPlatelet Morphology Xttcuru9419-59-83 09:00:00* Test Item Value Reference Range Interpretation Comments Platelet Morphology Comment (test code = 96135-7) NORMAL [facility]aufmanHypochromasia2019-04-02 09:00:00* Test Item Value Reference Range Interpretation Comments Hypochromasia (test code = 728-6) SLIGHT [facility]aufmanAnisocytosis2019-04-02 09:00:00* Test Item Value Reference Range Interpretation Comments Anisocytosis (test code = 702-1) SLIGHT [facility]aufmanRed Cell Morphology Ugnxdny1823-02-38 09:00:00* Test Item Value Reference Range Interpretation Comments Red Cell Morphology Comment (test code = 6742-1) NORMAL [facility] KaufmanDifferential Total Cells Counted 2018-08-18 09:00:00* Test Item Value Reference Range Interpretation Comments Differential Total Cells Counted (test code = Differen tial Total Cells Counted) 100 [facility]manNeutrophils % (Manual)2018-08-18 09:00:00 * Test Item Value Reference Range Interpretation Comments Neutrophils % (Manual) (test code = 13050-7) 43 40-74 [facility]aufmanLymphocytes % (Manual)2018-08-18 09:00:00 * Test Item Value Reference Range Interpretation Comments Lymphocytes % (Manual) (test code = 737-7) 46 19-48 [facility]manMonocytes % (Manual)2018-08-18 09:00:00* Test Item Value Reference Range Interpretation Comments Monocytes % (Manual) (test code = 744-3) 8 3.4-9.0 [facility]manEosinophils % (Manual)2018-08-18 09:00:00 * Test Item Value Reference Range Interpretation Comments Eosinophils % (Manual) (test code = 714-6) 1 0-7 [facility]aufmanReactive Widgkazfdua0626-68-83 09:00:00* Test Item Value Reference Range Interpretation Comments Reactive Lymphocytes (test code = 99372-4) 2 [facility] KaufmanPlatelet Mkpdbxen2838-09-61 09:00:00* Test Item Value Reference Range Interpretation Comments Platelet Estimate (test code = 38476-6) ADEQUATE [facility]aufmanPlatelet Morphology Fwrylix2614-03-20 09:00:00* Test Item Value Reference Range Interpretation Comments Platelet Morphology Comment (test code = 24615-6) NORMAL [facility]aufmanHypochromasia2019-04-02 09:00:00* Test Item Value Reference Range Interpretation Comments Hypochromasia (test code = 728-6) SLIGHT [facility]manAnisocytosis2019-04-02 09:00:00* Test Item Value Reference Range Interpretation Comments Anisocytosis (test code = 702-1) SLIGHT [facility]aufmanRed Cell Morphology Lqgokrh2565-39-36 09:00:00* Test Item Value Reference Range Interpretation Comments Red Cell Morphology Comment (test code = 6742-1) NORMAL [facility]manEosinophils % (Manual)2018-08-18 09:00:00 * Test Item Value Reference Range Interpretation Comments Eosinophils % (Manual) (test code = 714-6) 1 0-7 [facility]aufmanReactive Ddzsveuihae4425-89-97 09:00:00* Test Item Value Reference Range Interpretation Comments Reactive Lymphocytes (test code = 13500-5) 2 [facility]aufmanAnisocytosis2019-04-02 09:00:00* Test Item Value Reference Range Interpretation Comments Anisocytosis (test code = 702-1) SLIGHT [facility] KaufmanC-Reactive Tmteeyk2418-94-90 08:58:00* Test Item Value Reference Range Interpretation Comments C-Reactive Protein (test code = 1987-) 14.6 0.0-4.9 H Performed at: - [facility] [id number] Director: Manjeet Pritchard MD, Phone: [phone] Health KaufmanC-Reactive Zxzjtbj9651-31-19 08:58:00* Test Item Value Reference Range Interpretation Comments C-Reactive Protein (test code = 1987-) 14.6 0.0-4.9 H Performed at: - [facility] [id number] Director: Manjeet Pritchard MD, Phone: [phone] Health KaufmanC-Reactive Qxjevdc3423-13-79 08:58:00* Test Item Value Reference Range Interpretation Comments C-Reactive Protein (test code = 1987-) 14.6 0.0-4.9 H Performed at: - [facility] [id number] Director: Manjeet Pritchard MD, Phone: [phone] Health KaufmanHemoglobin A1c Hyzawvd3081-09-62 06:45:00* Test Item Value Reference Range Interpretation Comments Hemoglobin A1c Percent (test code = Hemoglobin A1c Percent) 12.9 4.0-7.0 H [facility]manHemoglobin A1c Ikptqcn4617-31-28 06:45:00 * Test Item Value Reference Range Interpretation Comments Hemoglobin A1c Percent (test code = Hemoglobin A1c Percent) 12.9 4.0-7.0 H [facility]manHemoglobin A1c Rjewqwu0536-34-80 06:45:00 * Test Item Value Reference Range Interpretation Comments Hemoglobin A1c Percent (test code = Hemoglobin A1c Percent) 12.9 4.0-7.0 H [facility]aufmanWhite Blood Lbmxc5404-86-81 05:58:00* Test Item Value Reference Range Interpretation Comments White Blood Count (test code = 6690-2) 11.14 4.8-10.8 H [facility]aufmanRed Blood Ehvpf3774-80-13 05:58:00* Test Item Value Reference Range Interpretation Comments Red Blood Count (test code = 789-8) 3.56 3.6-5.1 L [facility]manHemoglobin2019-04-02 05:58:00* Test Item Value Reference Range Interpretation Comments Hemoglobin (test code = 91877-4) 9.4 12.0-16.0 L [facility]aufmanHematocrit2019-04-02 05:58:00* Test Item Value Reference Range Interpretation Comments Hematocrit (test code = 4544-3) 30.1 34.2-44.1 L [facility]aufmanMean Corpuscular Gtjdsb9313-63-95 05:58:00* Test Item Value Reference Range Interpretation Comments Mean Corpuscular Volume (test code = 787-2) 84.6 81-99 [facility]manMean Corpuscular Xzwmbhnzan1606-32-86 05:58:00* Test Item Value Reference Range Interpretation Comments Mean Corpuscular Hemoglobin (test code = 785-6) 26.4 28-32 L [facility]aufmanMean Corpuscular Hemoglobin Concent 2018-08-18 05:58:00* Test Item Value Reference Range Interpretation Comments Mean Corpuscular Hemoglobin Concent (test code = 786-4) 31.2 31-35 [facility]aufmanRed Cell Distribution Hhqgk2718-89-14 05:58:00* Test Item Value Reference Range Interpretation Comments Red Cell Distribution Width (test code = 64784-0) 14.7 11.7 -14.4 H [facility] KaufmanPlatelet Ukgqn5329-44-34 05:58:00* Test Item Value Reference Range Interpretation Comments Platelet Count (test code = 777-3) 316 140-360 [facility]aufmanNeutrophils (%) (Auto)2018-08-18 05:58:00 * Test Item Value Reference Range Interpretation Comments Neutrophils (%) (Auto) (test code = 31076-3) 43.8 38.7-80.0 [facility]aufmanLymphocytes (%) (Auto)2018-08-18 05:58:00 * Test Item Value Reference Range Interpretation Comments Lymphocytes (%) (Auto) (test code = 736-9) 45.8 18.0-39.1 H [facility]aufmanMonocytes (%) (Auto)2018-08-18 05:58:00* Test Item Value Reference Range Interpretation Comments Monocytes (%) (Auto) (test code = 5905-5) 7.8 4.4-11.3 [facility]manEosinophils (%) (Auto)2018-08-18 05:58:00 * Test Item Value Reference Range Interpretation Comments Eosinophils (%) (Auto) (test code = 713-8) 1.9 0.0-6.0 [facility]manBasophils (%) (Auto)2018-08-18 05:58:00* Test Item Value Reference Range Interpretation Comments Basophils (%) (Auto) (test code = 706-2) 0.4 0.0-1.0 [facility] KaufmanIM GRANULOCYTES %2018-08-18 05:58:00* Test Item Value Reference Range Interpretation Comments IM GRANULOCYTES % (test code = IM GRANULOCYTES %) 0.3 0.0- 1.0 [facility]manNeutrophils # (Auto)2018-08-18 05:58:00* Test Item Value Reference Range Interpretation Comments Neutrophils # (Auto) (test code = 751-8) 4.9 2.1-6.9 [facility]aufmanLymphocytes # (Auto)2018-08-18 05:58:00* Test Item Value Reference Range Interpretation Comments Lymphocytes # (Auto) (test code = 54295-3) 5.1 1.0-3.2 H [facility]manMonocytes # (Auto)2018-08-18 05:58:00* Test Item Value Reference Range Interpretation Comments Monocytes # (Auto) (test code = 742-7) 0.9 0.2-0.8 H [facility]manEosinophils # (Auto)2018-08-18 05:58:00* Test Item Value Reference Range Interpretation Comments Eosinophils # (Auto) (test code = 711-2) 0.2 0.0-0.4 [facility]manBasophils # (Auto)2018-08-18 05:58:00* Test Item Value Reference Range Interpretation Comments Basophils # (Auto) (test code = 704-7) 0.1 0.0-0.1 [facility]aufmanAbsolute Immature Granulocyte (auto 2018-08-18 05:58:00* Test Item Value Reference Range Interpretation Comments Absolute Immature Granulocyte (auto (gretchen t code = Absolute Immature Granulocyte (auto) 0.03 0-0.1 [facility]aufmanWhite Blood Sbykk0817-89-71 05:58:00* Test Item Value Reference Range Interpretation Comments White Blood Count (test code = 6690-2) 11.14 4.8-10.8 H [facility]aufmanRed Blood Uoiqf9218-11-76 05:58:00* Test Item Value Reference Range Interpretation Comments Red Blood Count (test code = 789-8) 3.56 3.6-5.1 L [facility]aufmanHemoglobin2019-04-02 05:58:00* Test Item Value Reference Range Interpretation Comments Hemoglobin (test code = 99435-3) 9.4 12.0-16.0 L [facility]aufmanHematocrit2019-04-02 05:58:00* Test Item Value Reference Range Interpretation Comments Hematocrit (test code = 4544-3) 30.1 34.2-44.1 L [facility]manMean Corpuscular Wqiuyq2184-38-78 05:58:00* Test Item Value Reference Range Interpretation Comments Mean Corpuscular Volume (test code = 787-2) 84.6 81-99 [facility]manMean Corpuscular Fihagadzto1751-92-71 05:58:00* Test Item Value Reference Range Interpretation Comments Mean Corpuscular Hemoglobin (test code = 785-6) 26.4 28-32 L [facility]aufmanMean Corpuscular Hemoglobin Concent 2018-08-18 05:58:00* Test Item Value Reference Range Interpretation Comments Mean Corpuscular Hemoglobin Concent (test code = 786-4) 31.2 31-35 [facility]aufmanRed Cell Distribution Tqvfm5583-12-91 05:58:00* Test Item Value Reference Range Interpretation Comments Red Cell Distribution Width (test code = 36993-7) 14.7 11.7 -14.4 H [facility] KaufmanPlatelet Pggxh7823-19-66 05:58:00* Test Item Value Reference Range Interpretation Comments Platelet Count (test code = 777-3) 316 140-360 [facility]aufmanNeutrophils (%) (Auto)2018-08-18 05:58:00 * Test Item Value Reference Range Interpretation Comments Neutrophils (%) (Auto) (test code = 84024-0) 43.8 38.7-80.0 [facility]aufmanLymphocytes (%) (Auto)2018-08-18 05:58:00 * Test Item Value Reference Range Interpretation Comments Lymphocytes (%) (Auto) (test code = 736-9) 45.8 18.0-39.1 H [facility]manMonocytes (%) (Auto)2018-08-18 05:58:00* Test Item Value Reference Range Interpretation Comments Monocytes (%) (Auto) (test code = 5905-5) 7.8 4.4-11.3 [facility]manEosinophils (%) (Auto)2018-08-18 05:58:00 * Test Item Value Reference Range Interpretation Comments Eosinophils (%) (Auto) (test code = 713-8) 1.9 0.0-6.0 [facility]manBasophils (%) (Auto)2018-08-18 05:58:00* Test Item Value Reference Range Interpretation Comments Basophils (%) (Auto) (test code = 706-2) 0.4 0.0-1.0 [facility]aufmanIM GRANULOCYTES %2018-08-18 05:58:00* Test Item Value Reference Range Interpretation Comments IM GRANULOCYTES % (test code = IM GRANULOCYTES %) 0.3 0.0- 1.0 [facility]manNeutrophils # (Auto)2018-08-18 05:58:00* Test Item Value Reference Range Interpretation Comments Neutrophils # (Auto) (test code = 751-8) 4.9 2.1-6.9 [facility]aufmanLymphocytes # (Auto)2018-08-18 05:58:00* Test Item Value Reference Range Interpretation Comments Lymphocytes # (Auto) (test code = 42933-6) 5.1 1.0-3.2 H [facility]manMonocytes # (Auto)2018-08-18 05:58:00* Test Item Value Reference Range Interpretation Comments Monocytes # (Auto) (test code = 742-7) 0.9 0.2-0.8 H [facility]manEosinophils # (Auto)2018-08-18 05:58:00* Test Item Value Reference Range Interpretation Comments Eosinophils # (Auto) (test code = 711-2) 0.2 0.0-0.4 [facility]manBasophils # (Auto)2018-08-18 05:58:00* Test Item Value Reference Range Interpretation Comments Basophils # (Auto) (test code = 704-7) 0.1 0.0-0.1 [facility]aufmanAbsolute Immature Granulocyte (auto 2018-08-18 05:58:00* Test Item Value Reference Range Interpretation Comments Absolute Immature Granulocyte (auto (gretchen t code = Absolute Immature Granulocyte (auto) 0.03 0-0.1 [facility] Worthodium Olqyp6349-07-55 05:48:00* Test Item Value Reference Range Interpretation Comments Sodium Level (test code = 2951-2) 134 136-145 L [facility]aufmanPotassium Eeedk2742-38-99 05:48:00* Test Item Value Reference Range Interpretation Comments Potassium Level (test code = 2823-3) 4.4 3.5-5.1 [facility]aufmanChloride Vqesk7802-78-19 05:48:00* Test Item Value Reference Range Interpretation Comments Chloride Level (test code = 2075-0) 103 98-107 [facility] KaufmanCarbon Dioxide Zvmrh3894-64-70 05:48:00* Test Item Value Reference Range Interpretation Comments Carbon Dioxide Level (test code = 2028-9) 26 22-29 [facility] KaufmanAnion Dqw7158-42-80 05:48:00* Test Item Value Reference Range Interpretation Comments Anion Gap (test code = 33927-0) 9.4 8-16 [facility]aufmanBlood Urea Etpzrucf2541-21-89 05:48:00* Test Item Value Reference Range Interpretation Comments Blood Urea Nitrogen (test code = 3094-0) 24 7-26 [facility]aufmanCreatinine2019-04-02 05:48:00* Test Item Value Reference Range Interpretation Comments Creatinine (test code = 2160-0) 1.24 0.57-1.11 H [facility]aufmanBUN/Creatinine Levoj8494-83-39 05:48:00* Test Item Value Reference Range Interpretation Comments BUN/Creatinine Ratio (test code = 3097-3) 19 6- [facility] KaufmanEstimat Glomerular Filtration Rate 2018-08-18 05:48:00* Test Item Value Reference Range Interpretation Comments Estimat Glomerular Filtration Rate (test code = 143271447) 54 >60 L Ranges were taken from the National Kidney Disease Education Program and the [facility] literature.Reference ranges:60 or greater: Ucehus97-92 ( for 3 consecutive months): Chronic kidney disease 15 or less: Kidney failureTexas Health KaufmanGlucose Zibgz5043-20-13 05:48:00* Test Item Value Reference Range Interpretation Comments Glucose Level (test code = RCZ5749) 294 74-118 H [facility] KaufmanCalcium Brlea4023-42-57 05:48:00* Test Item Value Reference Range Interpretation Comments Calcium Level (test code = 35871-5) 8.7 8.4-10.2 [facility]aufmanMagnesium Qweeg1182-71-86 05:48:00* Test Item Value Reference Range Interpretation Comments Magnesium Level (test code = 49606-2) 1.9 1.3-2.1 [facility] Worthodium Iabfb5682-04-88 05:48:00* Test Item Value Reference Range Interpretation Comments Sodium Level (test code = 2951-2) 134 136-145 L [facility]aufmanPotassium Hsovj9101-50-15 05:48:00* Test Item Value Reference Range Interpretation Comments Potassium Level (test code = 2823-3) 4.4 3.5-5.1 [facility] KaufmanChloride Ybsqu8409-09-26 05:48:00* Test Item Value Reference Range Interpretation Comments Chloride Level (test code = 2075-0) 103 98-107 [facility] KaufmanCarbon Dioxide Jzitf6960-20-10 05:48:00* Test Item Value Reference Range Interpretation Comments Carbon Dioxide Level (test code = 2028-9) 26 22-29 [facility] KaufmanAnion Rff0260-08-12 05:48:00* Test Item Value Reference Range Interpretation Comments Anion Gap (test code = 03767-2) 9.4 8-16 [facility]aufmanBlood Urea Wshvlwzd0841-11-54 05:48:00* Test Item Value Reference Range Interpretation Comments Blood Urea Nitrogen (test code = 3094-0) 24 7-26 [facility]aufmanCreatinine2019-04-02 05:48:00* Test Item Value Reference Range Interpretation Comments Creatinine (test code = 2160-0) 1.24 0.57-1.11 H [facility]aufmanBUN/Creatinine Hxjyl7762-31-08 05:48:00* Test Item Value Reference Range Interpretation Comments BUN/Creatinine Ratio (test code = 3097-3) 19 6-25 [facility] KaufmanEstimat Glomerular Filtration Rate 2018-08-18 05:48:00* Test Item Value Reference Range Interpretation Comments Estimat Glomerular Filtration Rate (test code = 391613003) 54 >60 L Ranges were taken from the National Kidney Disease Education Program and the [facility] literature.Reference ranges:60 or greater: Odkqeg43-06 ( for 3 consecutive months): Chronic kidney disease 15 or less: Kidney failureTexas Health KaufmanGlucose Ueawo1718-23-40 05:48:00* Test Item Value Reference Range Interpretation Comments Glucose Level (test code = TUN9221) 294 74-118 H [facility]aufmanCalcium Pvvaz3335-45-04 05:48:00* Test Item Value Reference Range Interpretation Comments Calcium Level (test code = 26108-1) 8.7 8.4-10.2 [facility]gn[facility] Gqnhd1963-96-42 05:48:00* Test Item Value Reference Range Interpretation Comments Magnesium Level (test code = 27709-5) 1.9 1.3-2.1 [facility] [id number] 05:48:00* Test Item Value Reference Range Interpretation Comments Magnesium Level (test code = 28092-9) 1.9 1.3-2.1 [facility] [id number] 05:43:00* Test Item Value Reference Range Interpretation Comments Prothrombin Time (test code = 5902-2) 12.3 11.9-14.5 [facility] International Ratio 2018-08-18 05:43:00* Test Item Value Reference Range Interpretation Comments Prothromb Time International Ratio (test code = 6301-6) 0.87 Oral Anticoagulant Therapy INR Values:1. Low Intensity Therapy 1.5 - 2.02 . Moderate Intensity Therapy 2.0 - 3.03. High Intensity Therapy(1) 2.5 - 3. 54. High Intensity Therapy(2) 3.0 - 4.05. Panic Value INR > 5.0 [facility]manAct[facility] Partial Thromboplast Time 2018-08-18 05:43:00* Test Item Value Reference Range Interpretation Comments Activated Partial Thromboplast Time (test code = 62578-2) 24.9 23.8-35.5 [facility] [id number] 05:43:00* Test Item Value Reference Range Interpretation Comments Prothrombin Time (test code = 5902-2) 12.3 11.9-14.5 [facility]th[facility] International Ratio 2018-08-18 05:43:00* Test Item Value Reference Range Interpretation Comments Prothromb Time International Ratio (test code = 6301-6) 0.87 Oral Anticoagulant Therapy INR Values:1. Low Intensity Therapy 1.5 - 2.02 . Moderate Intensity Therapy 2.0 - 3.03. High Intensity Therapy(1) 2.5 - 3. 54. High Intensity Therapy(2) 3.0 - 4.05. Panic Value INR > 5.0 [facility] Partial Thromboplast Time 2018-08-18 05:43:00* Test Item Value Reference Range Interpretation Comments Activated Partial Thromboplast Time (test code = 17568-6) 24.9 23.8-35.5 [facility]manMRI SP[facility] LUMBAR [id number] 15:54:00 [facility] [address] [address] Patient Name: ANDREA HOOVER MR #: [id number] : [birth year] Age/Sex: 58/F Req #: [id number] Adm Physician: AMINAH ROBBINS MD Ordered by: AMINAH ROBBINS MD Report #: [id number] Location: [facility] Room/Bed: [place] [address] Procedure: [id number] MR I/MRI SPINE LUMBAR WO Exam Date: Exam Time: REPORT STATUS: Signed History: Low jossy k pain Comparison studies: CT of the lumbar spine 08/16/2018 Technique: Sagittal, coronal and axial T2 , sagittal T1 and IR, axial spin density obli que. Intravenous contrast: None Findings: Number of lumbar vertebral bodies:5 Alignment: Straightening of the normal lordosis.No scoliosis. S oft tissues: No T2 hyperintense inflammatory changes. Paraspinal muscles: No s ignal abnormalities. No atrophy. Lower thoracic cord:Normal in signal and mor phology. The tip of the conus is at L1. Cauda equina: No masses. No arachno iditis. Vertebrae: Normal in height and signal intensity. No compressio n fractures, infection or neoplasm. Degenerative changes: L1-L2: Pat ent canal and foramina. L2-L3: Patent canal and foramina. L3-L4: D isc degeneration with loss of T2 signal. Mild diffuse disc bulge and mild face t hypertrophy results in mild canal stenosis and mild right foraminal narrowin g. Trace of fluid at the bilateral facet joints. L4-L5: Disc degeneration with loss of T2 signal. Asymmetric left disc bulge with superimposed left for aminal disc protrusion and mild facet hypertrophy results in mild left foramin al narrowing without significant canal stenosis. Trace of fluid of the bilater al facet joint. L5-S1: Mild facet hypertrophy with patent canal and darlyn mery. Additional findings: None IMPRESSION: No cord compression or acute spinal abnormality. Mild right generative foraminal narrowing at L 3-L4. Mild left foraminal narrowing secondary to small left disc protrusion at L4-L5. Mild facet hypertrophy lower lumbar spine with mild synovitis roth es at L3-L4 and L4-L5. Signed by: DR Pedro Singh M.D. on 08/18/19 19 3:59 PM Dictated By: PEDRO PICKENS MD 58 Transcribed By: RUCHI on 08/17/181558 COPY TO: AMINAH ROBBINS MD CT LUMBAR SPINE WITHOUT-HOPD 2018-08-16 20:11:00 [place] [address] Patient Name: ANDREA HOOVER MR #: [id number] : 1960 Age/Sex: 58/F Req #: [id number] Adm Physician: Ordered by: EVANGELINA BAIRD MD Report #: [id number] Location: [facility] Room/Bed: Procedure: [id number] HOPD /CT LUMBAR SPINE WITHOUT-HOPD Exam Date: 08/16/18 Ex am Time: 1926 REPORT STATUS: Signed EXAMINATION: CT of the lumbar spine HISTORY: Low back pain radiating t o the bilateral lower extremities. COMPARISON: None available TECHNIQUE: Mul tidetector helical axial images were obtained without contrast from L1 to S1. The images were reconstructed using bone and soft tissue algorithms and were viewed in axial, sagittal, and coronal planes. Dose modulation, iterative reconstruction, and/or weight based adjustment of the mA/kV was utilized to re duce the radiation dose to as low as reasonably achievable. FINDINGS: Alignment: Normal alignment and lordosis. Vertebral bodies: Normal he ight and density. Paraspinal soft tissues: Partially visualized linear hyper densities, likely vascular calcifications around the left renal pelvis. Intervertebral disks: L1-L2: Normal. L2-L3: Normal. L3- L4: Asymmetric to the right disc bulge, in combination with facet arthropathy results in moderate right and mild left foraminal stenosis.. L4-L5: Asymmetr ic to left disc bulge and bilateral facet arthroses as well as ligamenta flava thickening. Mild spinal canal stenosis. Moderate left and mild right foramina l stenosis.. L5-S1: Bilateral facet arthrosis without significant canal or f oraminal stenosis.. IMPRESSION: 1. No acute lumbar spine abnormalit ies. 2. Moderate degenerative foraminal stenosis on the right at L3-L4 and on the left at L4-L5. 3. Mild degenerative spinal canal stenoses at L4-L5. Signed by: Dr. Nawaf Davis M.D. on 08/16/2018 8:16 PM Dictated B y: NAWAF DAVIS MD 15 Tr anscribed By: RUCHI on 08/16/182015 COPY TO: EVANGELINA BAIRD MD CT C-SPINE W/O - [id number] 20:07:00 [place] [address] Patient Name: ANDREA HOOVER MR #: [id number] : 1960 Age/Sex: 58/F Req #: [id number] Adm Physician: Ordered by: EVANGELINA BAIRD MD Report #: [id number] Location: [facility] Room/Bed: Procedure: [id number] HOPD /CT C-SPINE W/O - HOPD Exam Date: 08/16/18 Exam Time : 1932 REPORT STATUS: Signed EXA MINATION: CT of the cervical spine HISTORY: Neck pain COMPARISON: None a vailable TECHNIQUE: Multidetector helical axial images were obtained without c ontrast from the foramen magnum to T1. The images were reconstructed using eric ne and soft tissue algorithms and were viewed in axial, sagittal and coronal p lanes. Dose modulation, iterative reconstruction, and/or weight based adjus tment of the mA/kV was utilized to reduce the radiation dose to as low as reas onably achievable. FINDINGS: Alignment: Normal alignment and lordosis Soft tissues: Mild prominence of the palatine tonsils, likely reactive. Vertebrae: Normal height and density. No acute f racture, infection or neoplasm Degenerative changes: C1-C2 to C3-C4: No abnormalities. C4-C5: Disc osteophyte complex formation asymmet anita to the right, right-sided uncovertebral arthrosis. Mild right foraminal st enoses. 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 Moderate right foraminal stenoses. C6-C7 and C7-T1: No abnormalities. IMPRESSION: 1. No acute cervical spine abnormaliti es. 2. Moderate degenerative foraminal stenosis on the right at C5-C6 and mil d at C4-C5. 3. Spondylolisthesis at C4-C5 and C5-6 without significant spin al canal stenosis. Note: Acute postraumatic spinal cord, vascular or liga mentous injuries cannot adequately be assessed by CT. Signed by: Dr. Nawaf Davis M.D. on 08/16/2018 8:11 PM Dictated By: NAWAF DAVIS MD Elect ronically Signed By: NAWAF DAVIS MD on 08/16/182010 Transcribed By: RUCHI on 08/16/182010 COPY TO: EVANGELINA BAIRD MD POCT-GLUCOSE METER 2018-08-11 11:50:00* Test Item Value Reference Range Interpretation Comments POC-GLUCOSE METER (BEAKER) (test code = 1538) 405 mg/dL 70-110 HH TESTED AT [address] [address] BASIC METABOLIC [id number] 10:07:00* Test Item Value Reference Range Interpretation Comments SODIUM (BEAKER) (test code = 381) 132 meq/L 135-148 L POTASSIUM (BEAKER) (test code = 379) 5.9 meq/L 3.6-5.5 H CHLORIDE (BEAKER) (test code = 382) 99 meq/L 98-106 CO2 (BEAKER) (test code = 355) 22 meq/L 24-32 L BLOOD UREA NITROGEN (BEAKER) (test code = 354) 20 mg/dL - CREATININE (BEAKER) (test code = 358) 1.05 mg/dL 0.50-1.20 GLUCOSE RANDOM (BEAKER) (test code = 652) 446 mg/dL 70-110 HH CALCIUM (BEAKER) (test code = 697) 9.3 mg/dL 8.5-10.5 EGFR (BEAKER) (test code = 1092) 66 mL/min/1.73 sq m ESTIMATED GFR IS NOT ACCURATE CREATININE CLEARANCE IN PREDICTING GLOMERULAR FILTRATION RATE. ESTIMATED GFR IS NOT APPLICABLE FOR DIALYSIS PATIENTS. [id number] 10:03:00* Test Item Value Reference Range Interpretation Comments MAGNESIUM (BEAKER) (test code = 627) 1.8 mg/dL 1.5-3.0 [id number] 10:03:00* Test Item Value Reference Range Interpretation Comments PHOSPHORUS (BEAKER) (test code = 604) 3.6 mg/dL 2.5-4.5 CREATINE KINASE (CK)2018-08-11 10:03:00* Test Item Value Reference Range Interpretation Comments CREATINE KINASE TOTAL (BEAKER) (test code = 380) 155 U/L 25-23 5 CBC W/PLT COUNT & AUTO [id number] 09:50:00* Test Item Value Reference Range Interpretation Comments WHITE BLOOD CELL COUNT (BEAKER) (test code = 775) 10.7 K/ L 4.0- 10.0 H RED BLOOD CELL COUNT (BEAKER) (test code = 761) 4.60 M/ L 4.00-5 .00 HEMOGLOBIN (BEAKER) (test code = 410) 12.1 GM/DL 12.0-15.0 HEMATOCRIT (BEAKER) (test code = 411) 38.3 % 36.0-45.0 MEAN CORPUSCULAR VOLUME (BEAKER) (test code = 753) 83.2 fL 82. 0-99.0 MEAN CORPUSCULAR HEMOGLOBIN (BEAKER) (test code = 751) 26.3 pg 27.0-33.0 L MEAN CORPUSCULAR HEMOGLOBIN CONC (BEAKER) (test code = 752) 31.6 GM/DL 32.0-36.0 L RED CELL DISTRIBUTION WIDTH (BEAKER) (test code = 412) 14.5 % 10.3-14.2 H PLATELET COUNT (BEAKER) (test code = 756) 426 K/CU MM 150-430 MEAN PLATELET VOLUME (BEAKER) (test code = 754) 8.1 fL 6.5-10 .5 NEUTROPHILS RELATIVE PERCENT (BEAKER) (test code = 429) 64 % LYMPHOCYTES RELATIVE PERCENT (BEAKER) (test code = 430) 27 % MONOCYTES RELATIVE PERCENT (BEAKER) (test code = 431) 7 % EOSINOPHILS RELATIVE PERCENT (BEAKER) (test code = 432) 1 % BASOPHILS RELATIVE PERCENT (BEAKER) (test code = 437) 1 % NEUTROPHILS ABSOLUTE COUNT (BEAKER) (test code = 670) 6.85 K/ L 1.80-8.00 LYMPHOCYTES ABSOLUTE COUNT (BEAKER) (test code = 414) 2.90 K/ L 1.48-4.50 MONOCYTES ABSOLUTE COUNT (BEAKER) (test code = 415) 0.77 K/ L 0. 00-1.30 EOSINOPHILS ABSOLUTE COUNT (BEAKER) (test code = 416) 0.15 K/ L 0.00-0.50 BASOPHILS ABSOLUTE COUNT (BEAKER) (test code = 417) 0.06 K/ L 0. 00-0.20 RAD, HIP, 2 VIEWS, [id number] 09:31:00Reason for exam:->HIP PAINxright hip/leg pain x 3 days. denies injuryReason for exam:->LEG PAINIs the patient ?->NoShould this be performed at the bedside?->NoFINAL REPORT Radiograph of the right hip Reason for exam: HIP PAINLEG PAIN Comparison: No priors Discussion: There is mild right hip joint space narrowing with minimal osteophyte formation. No evidence of acute fracture, or dislocation. A small focus of heterotopic ossification, or old avulsion injury is noted adjacent to the right superior iliac crest. Visualized soft tissues are unremarkable. Impressions: Mild right DJD. Signed: Pily Garza Verified Date/Time: 08/11/2018 09:31:19 Reading Location: [facility] Radiology Reading Room 0 9:31 AM AFB CULTURE + [id number] 12:53:00* Test Item Value Reference Range Interpretation Comments CULTURE (BEAKER) (test code = 1095) No acid-fast bacilli isolate d in 42 days AFB SMEAR (BEAKER) (test code = 994) No acid fast bacilli seen AFB CULTURE + [id number] 12:53:00* Test Item Value Reference Range Interpretation Comments CULTURE (BEAKER) (test code = 1095) No acid-fast bacilli isolate d in 42 days AFB SMEAR (BEAKER) (test code = 994) No acid fast bacilli seen AFB CULTURE + [id number] 14:36:00* Test Item Value Reference Range Interpretation Comments CULTURE (BEAKER) (test code = 1095) No acid-fast bacilli isolate d in 42 days AFB SMEAR (BEAKER) (test code = 994) No acid fast bacilli seen BLOOD [id number] 11:00:00* Test Item Value Reference Range Interpretation Comments CULTURE (BEAKER) (test code = 1095) No growth in 5 days BLOOD [id number] 11:00:00* Test Item Value Reference Range Interpretation Comments CULTURE (BEAKER) (test code = 1095) No growth in 5 days POCT-GLUCOSE [id number] 13:22:00* Test Item Value Reference Range Interpretation Comments POC-GLUCOSE METER (BEAKER) (test code = 1538) 119 mg/dL 70-110 H TESTED AT [address] [address] SPUTUM CULTURE + GRAM [id number] 09:15:00* Test Item Value Reference Range Interpretation Comments CULTURE (BEAKER) (test code = 1095) 1+ Normal respiratory ale pre sent GRAM STAIN RESULT (BEAKER) (test code = 1123) 2+ White blood cells seen GRAM STAIN RESULT (BEAKER) (test code = 97528) 0-5 epithelial cells GRAM STAIN RESULT (BEAKER) (test code = 56411) 1+ gram negative lázaro s GRAM STAIN RESULT (BEAKER) (test code = 673019) 2+ gram posi tive cocci in pairs POCT-GLUCOSE [id number] 08:45:00* Test Item Value Reference Range Interpretation Comments POC-GLUCOSE METER (BEAKER) (test code = 1538) 227 mg/dL 70-110 H TESTED AT [address] [address] CBC W/PLT COUNT & AUTO [id number] 08:10:00* Test Item Value Reference Range Interpretation Comments WHITE BLOOD CELL COUNT (BEAKER) (test code = 775) 10.7 K/ L 3.5- 10.5 H RED BLOOD CELL COUNT (BEAKER) (test code = 761) 3.36 M/ L 3.93-5 .22 L HEMOGLOBIN (BEAKER) (test code = 410) 8.9 GM/DL 11.2-15.7 L HEMATOCRIT (BEAKER) (test code = 411) 28.7 % 34.1-44.9 L MEAN CORPUSCULAR VOLUME (BEAKER) (test code = 753) 85.4 fL 79. 4-94.8 MEAN CORPUSCULAR HEMOGLOBIN (BEAKER) (test code = 751) 26.5 pg 25.6-32.2 MEAN CORPUSCULAR HEMOGLOBIN CONC (BEAKER) (test code = 752) 31.0 GM/DL 32.2-35.5 L RED CELL DISTRIBUTION WIDTH (BEAKER) (test code = 412) 14.0 % 11.7-14.4 PLATELET COUNT (BEAKER) (test code = 756) 320 K/CU MM 150-450 MEAN PLATELET VOLUME (BEAKER) (test code = 754) 9.6 fL 9.4-12 .3 NUCLEATED RED BLOOD CELLS (BEAKER) (test code = 413) 0 /100 WBC 0 -0 (CELLAVISION MANUAL DIFF)2018-06-04 08:10:00* Test Item Value Reference Range Interpretation Comments NEUTROPHILS - REL (CELLAVISION)(BEAKER) (test code = 2816) 61 % LYMPHOCYTES - REL (CELLAVISION)(BEAKER) (test code = 2817) 31 % MONOCYTES - REL (CELLAVISION)(BEAKER) (test code = 2818) 5 % EOSINOPHILS - REL (CELLAVISION)(BEAKER) (test code = 2819) 1 % BASOPHILS - REL (CELLAVISION)(BEAKER) (test code = 2820) 1 % ATYPICAL LYMPHOCYTES - REL (CELLAVISION)(BEAKER) (test code = 2829) 1 % 0-0 H NEUTROPHILS - ABS (CELLAVISION)(BEAKER) (test code = 2830) 6.53 K/ul 1.56-6.13 H LYMPHOCYTES - ABS (CELLAVISION)(BEAKER) (test code = 2831) 3.32 K/ul 1.18-3.74 MONOCYTES - ABS (CELLAVISION)(BEAKER) (test code = 2832) 0.54 K/uL 0.24-0.36 H EOSINOPHILS - ABS (CELLAVISION)(BEAKER) (test code = 2834) 0.11 K/uL 0.04-0.36 BASOPHILS - ABS (CELLAVISION)(BEAKER) (test code = 2835) 0.11 K/uL 0.01-0.08 H ATYPICAL LYMPHOCYTES - ABS (CELLAVISION)(BEAKER) (test code = 2858) 0.11 K/uL 0.00-0.00 H TOTAL COUNTED (BEAKER) (test code = 1351) 100 SMUDGE CELLS (BEAKER) (test code = 1371) Present GIANT PLATELETS (BEAKER) (test code = 313) Present ANISOCYTOSIS (BEAKER) (test code = 961) 1+ few PLATELET CONCENTRATION (CELLAVISION)(BEAKER) (test code = 3438) Nancy quate Received comment: User comments: Slide comments: [id number] 04:34:00* Test Item Value Reference Range Interpretation Comments PHOSPHORUS (BEAKER) (test code = 604) 2.7 mg/dL 2.3-4.7 [id number] 04:34:00* Test Item Value Reference Range Interpretation Comments MAGNESIUM (BEAKER) (test code = 627) 1.7 mg/dL 1.6-2.6 BASIC METABOLIC [id number] 04:34:00* Test Item Value Reference Range Interpretation Comments SODIUM (BEAKER) (test code = 381) 140 meq/L 136-145 POTASSIUM (BEAKER) (test code = 379) 3.7 meq/L 3.5-5.1 CHLORIDE (BEAKER) (test code = 382) 109 meq/L 98-107 H CO2 (BEAKER) (test code = 355) 27 meq/L 22-29 BLOOD UREA NITROGEN (BEAKER) (test code = 354) 15 mg/dL 7-21 CREATININE (BEAKER) (test code = 358) 1.22 mg/dL 0.57-1.25 GLUCOSE RANDOM (BEAKER) (test code = 652) 151 mg/dL 70-105 H CALCIUM (BEAKER) (test code = 697) 8.3 mg/dL 8.4-10.2 L EGFR (BEAKER) (test code = 1092) 55 mL/min/1.73 sq m ESTIMATED GFR IS NOT ACCURATE CREATININE CLEARANCE IN PREDICTING GLOMERULAR FILTRATION RATE. ESTIMATED GFR IS NOT APPLICABLE FOR DIALYSIS PATIENTS. POCT-GLUCOSE [id number] 21:20:00* Test Item Value Reference Range Interpretation Comments POC-GLUCOSE METER (BEAKER) (test code = 1538) 314 mg/dL 70-110 H TESTED AT [facility] [address] [address] POCT-GLUCOSE [id number] 15:01:00* Test Item Value Reference Range Interpretation Comments POC-GLUCOSE METER (BEAKER) (test code = 1538) 103 mg/dL 70-110 TESTED AT [facility] [address] [address] SPIN/CONCENTRATION [id number] 14:17:00* Test Item Value Reference Range Interpretation Comments CONCENTRATION CHARGED (BEAKER) (test code = 2657) Done SPIN/CONCENTRATION [id number] 14:15:00* Test Item Value Reference Range Interpretation Comments CONCENTRATION CHARGED (BEAKER) (test code = 2657) Done POCT-GLUCOSE [id number] 08:32:00* Test Item Value Reference Range Interpretation Comments POC-GLUCOSE METER (BEAKER) (test code = 1538) 137 mg/dL 70-110 H TESTED AT [facility] [address] [address] [id number] 05:03:00* Test Item Value Reference Range Interpretation Comments PHOSPHORUS (BEAKER) (test code = 604) 3.6 mg/dL 2.3-4.7 [id number] 05:03:00* Test Item Value Reference Range Interpretation Comments MAGNESIUM (BEAKER) (test code = 627) 1.6 mg/dL 1.6-2.6 BASIC METABOLIC [id number] 05:03:00* Test Item Value Reference Range Interpretation Comments SODIUM (BEAKER) (test code = 381) 139 meq/L 136-145 POTASSIUM (BEAKER) (test code = 379) 3.4 meq/L 3.5-5.1 L CHLORIDE (BEAKER) (test code = 382) 107 meq/L 98-107 CO2 (BEAKER) (test code = 355) 25 meq/L 22-29 BLOOD UREA NITROGEN (BEAKER) (test code = 354) 17 mg/dL 7-21 CREATININE (BEAKER) (test code = 358) 1.32 mg/dL 0.57-1.25 H GLUCOSE RANDOM (BEAKER) (test code = 652) 116 mg/dL 70-105 H CALCIUM (BEAKER) (test code = 697) 8.1 mg/dL 8.4-10.2 L EGFR (BEAKER) (test code = 1092) 50 mL/min/1.73 sq m ESTIMATED GFR IS NOT ACCURATE CREATININE CLEARANCE IN PREDICTING GLOMERULAR FILTRATION RATE. ESTIMATED GFR IS NOT APPLICABLE FOR DIALYSIS PATIENTS. CBC W/PLT COUNT & AUTO [id number] 04:48:00* Test Item Value Reference Range Interpretation Comments WHITE BLOOD CELL COUNT (BEAKER) (test code = 775) 10.9 K/ L 3.5- 10.5 H RED BLOOD CELL COUNT (BEAKER) (test code = 761) 3.34 M/ L 3.93-5 .22 L HEMOGLOBIN (BEAKER) (test code = 410) 8.8 GM/DL 11.2-15.7 L HEMATOCRIT (BEAKER) (test code = 411) 28.8 % 34.1-44.9 L MEAN CORPUSCULAR VOLUME (BEAKER) (test code = 753) 86.2 fL 79. 4-94.8 MEAN CORPUSCULAR HEMOGLOBIN (BEAKER) (test code = 751) 26.3 pg 25.6-32.2 MEAN CORPUSCULAR HEMOGLOBIN CONC (BEAKER) (test code = 752) 30.6 GM/DL 32.2-35.5 L RED CELL DISTRIBUTION WIDTH (BEAKER) (test code = 412) 13.9 % 11.7-14.4 PLATELET COUNT (BEAKER) (test code = 756) 328 K/CU MM 150-450 MEAN PLATELET VOLUME (BEAKER) (test code = 754) 9.9 fL 9.4-12 .3 NUCLEATED RED BLOOD CELLS (BEAKER) (test code = 413) 0 /100 WBC 0 -0 NEUTROPHILS RELATIVE PERCENT (BEAKER) (test code = 429) 62 % LYMPHOCYTES RELATIVE PERCENT (BEAKER) (test code = 430) 25 % MONOCYTES RELATIVE PERCENT (BEAKER) (test code = 431) 9 % EOSINOPHILS RELATIVE PERCENT (BEAKER) (test code = 432) 3 % BASOPHILS RELATIVE PERCENT (BEAKER) (test code = 437) 0 % NEUTROPHILS ABSOLUTE COUNT (BEAKER) (test code = 670) 6.82 K/ L 1.56-6.13 H LYMPHOCYTES ABSOLUTE COUNT (BEAKER) (test code = 414) 2.69 K/ L 1.18-3.74 MONOCYTES ABSOLUTE COUNT (BEAKER) (test code = 415) 1.02 K/ L 0. 24-0.36 H EOSINOPHILS ABSOLUTE COUNT (BEAKER) (test code = 416) 0.28 K/ L 0.04-0.36 BASOPHILS ABSOLUTE COUNT (BEAKER) (test code = 417) 0.04 K/ L 0. 01-0.08 IMMATURE GRANULOCYTES-RELATIVE PERCENT (BEAKER) (test code = 2801) 1 % 0-1 POCT-GLUCOSE [id number] 21:11:00* Test Item Value Reference Range Interpretation Comments POC-GLUCOSE METER (BEAKER) (test code = 1538) 170 mg/dL 70-110 H TESTED AT [facility] [address] [address] POCT-GLUCOSE [id number] 18:09:00* Test Item Value Reference Range Interpretation Comments POC-GLUCOSE METER (BEAKER) (test code = 1538) 169 mg/dL 70-110 H TESTED AT [place] [id number] [facility] [address] SPIN/CONCENTRATION [id number] 15:41:00* Test Item Value Reference Range Interpretation Comments CONCENTRATION CHARGED (BEAKER) (test code = 2657) Done POCT-GLUCOSE [id number] 12:27:00* Test Item Value Reference Range Interpretation Comments POC-GLUCOSE METER (BEAKER) (test code = 1538) 193 mg/dL 70-110 H TESTED AT [address] [address] RESPIRATORY PANEL [id number] 10:40:00* Test Item Value Reference Range Interpretation Comments HUMAN METAPNEUMOVIRUS (BEAKER) (test code = 2683) Not detect ed Not detected, Equivocal RHINOVIRUS (BEAKER) (test code = 2684) Not detected Not detected, E quivocal INFLUENZA A (BEAKER) (test code = 2685) Not detected Not detected, Equivocal INFLUENZA A (NO SUBTYPE) (test code = 3606) Not detect ed, Equivocal INFLUENZA A SUBTYPE H1 (BEAKER) (test code = 2686) Not detected, Equivocal INFLUENZA A SUBTYPE H3 (BEAKER) (test code = 2687) Not detected, Equivocal INFLUENZA A SUBTYPE H1-2009 (BEAKER) (test code = 3198) Not detected, Equivocal INFLUENZA B (BEAKER) (test code = 2688) Not detected Not detected, Equivocal RESPIRATORY SYNCYTIAL VIRUS (BEAKER) (test code = 3199) Dete cted Not detected, Equivocal A Assay is not able differenti ate between RSV A and RSV B.Contact isolation if immunosuppressed or young children. Consider stopping antibiotics. PARAINFLUENZA VIRUS 1 (BEAKER) (test code = 2691) Not detect ed Not detected, Equivocal PARAINFLUENZA VIRUS 2 (BEAKER) (test code = 2692) Not detect ed Not detected, Equivocal PARAINFLUENZA VIRUS 3 (BEAKER) (test code = 2693) Not detect ed Not detected, Equivocal PARAINFLUENZA VIRUS 4 (BEAKER) (test code = 3200) Not detect ed Not detected, Equivocal ADENOVIRUS (BEAKER) (test code = 3914) Not detected Not detected, E quivocal CORONAVIRUS 229E (BEAKER) (test code = 3201) Not detected Not detected, Equivocal CORONAVIRUS HKU1 (BEAKER) (test code = 3202) Not detected Not detected, Equivocal CORONAVIRUS NL63 (BEAKER) (test code = 3203) Not detected Not detected, Equivocal CORONAVIRUS OC43 (BEAKER) (test code = 3204) Not detected Not detected, Equivocal BORDETELLA PERTUSSIS (BEAKER) (test code = 3205) Not detecte d Not detected, Equivocal CHLAMYDOPHILA PNEUMONIAE (BEAKER) (test code = 3206) Not det ected Not detected, Equivocal MYCOPLASMA PNEUMONIAE (BEAKER) (test code = 3207) Not detect ed Not detected, Equivocal Other viruses and bacteria not targeted by this PCR panel cannot be excluded; th erefore clinical correlation and follow up of serology, culture results, and oth er molecular studies is required. The results are not intended to be used as the sole means for clinical diagnosis or patient management decisions. This sample was tested at the [facility] using the [employer] rray Respiratory Panel. It is FDA cleared and has been verified and approved by the [facility] for clinical use on nasal swab specim ens. It is not FDA-cleared for use on bronchial wash/lavage samples. However, fo r this sample type, validation was performed and test characteristics were deter mined and approved, by [facility] for clinical use u nder the Clinical Laboratory Improvement Amendments (CLIA) of 1988 requirements. Therefore, FDA clearance is not required. This laboratory is CLIA-certified an d [employer] ([employer])-accredited to perform high complexity t esting.HEMOGLOBIN [id number] 09:23:00* Test Item Value Reference Range Interpretation Comments HEMOGLOBIN A1C (GAL) (test code = 368) 13.4 % 4.3-6.1 H POCT-GLUCOSE [id number] 08:26:00* Test Item Value Reference Range Interpretation Comments POC-GLUCOSE METER (GAL) (test code = 1538) 263 mg/dL 70-110 H TESTED AT [facility] [address] [address] LEGIONELLA ANTIGEN, [id number] 06:25:00* Test Item Value Reference Range Interpretation Comments L. PNEUMOPHILA SEROGP 1 UR AG (BEAKER) (test code = 11 56) Negative - see comment Negative for L. pneu mophila serogroup 1 antigen, suggesting no recent or current infection with this serogroup. Legionellosis cannot be ruled out since other serogroups and species may cause disease. STREP PNEUMONIAE [id number] 06:23:00* Test Item Value Reference Range Interpretation Comments STREP PNEUMONIAE ANTIGEN (BEAKER) (test code = 1615) P resumptive negative for pneumococcal pneumonia - see comment Presumptive negative for pneumococcal pneumonia - see commen Presumptive negative for pneumococcal pneumonia, suggesting no current or recent pneumococcal infection. Infection due to S. pneumoniae cannot be ruled out sin e the antigen present in the sample may be below the detection limit of the test .BASIC METABOLIC [id number] 03:12:00* Test Item Value Reference Range Interpretation Comments SODIUM (BEAKER) (test code = 381) 138 meq/L 136-145 POTASSIUM (BEAKER) (test code = 379) 4.1 meq/L 3.5-5.1 Specimen slightly hemolyzed CHLORIDE (BEAKER) (test code = 382) 104 meq/L 98-107 CO2 (BEAKER) (test code = 355) 22 meq/L 22-29 BLOOD UREA NITROGEN (BEAKER) (test code = 354) 17 mg/dL 7-21 CREATININE (BEAKER) (test code = 358) 1.30 mg/dL 0.57-1.25 H Specimen slightly hemolyzed GLUCOSE RANDOM (BEAKER) (test code = 652) 163 mg/dL 70-105 H CALCIUM (BEAKER) (test code = 697) 8.4 mg/dL 8.4-10.2 EGFR (BEAKER) (test code = 1092) 51 mL/min/1.73 sq m ESTIMATED GFR IS NOT ACCURATE CREATININE CLEARANCE IN PREDICTING GLOMERULAR FILTRATION RATE. ESTIMATED GFR IS NOT APPLICABLE FOR DIALYSIS PATIENTS. CBC W/PLT COUNT & AUTO [id number] 02:56:00* Test Item Value Reference Range Interpretation Comments WHITE BLOOD CELL COUNT (BEAKER) (test code = 775) 13.4 K/ L 3.5- 10.5 H RED BLOOD CELL COUNT (BEAKER) (test code = 761) 3.58 M/ L 3.93-5 .22 L HEMOGLOBIN (BEAKER) (test code = 410) 9.6 GM/DL 11.2-15.7 L HEMATOCRIT (BEAKER) (test code = 411) 30.6 % 34.1-44.9 L MEAN CORPUSCULAR VOLUME (BEAKER) (test code = 753) 85.5 fL 79. 4-94.8 MEAN CORPUSCULAR HEMOGLOBIN (BEAKER) (test code = 751) 26.8 pg 25.6-32.2 MEAN CORPUSCULAR HEMOGLOBIN CONC (BEAKER) (test code = 752) 31.4 GM/DL 32.2-35.5 L RED CELL DISTRIBUTION WIDTH (BEAKER) (test code = 412) 13.6 % 11.7-14.4 PLATELET COUNT (BEAKER) (test code = 756) 332 K/CU MM 150-450 MEAN PLATELET VOLUME (BEAKER) (test code = 754) 10.3 fL 9.4-12 .3 NUCLEATED RED BLOOD CELLS (BEAKER) (test code = 413) 0 /100 WBC 0 -0 NEUTROPHILS RELATIVE PERCENT (BEAKER) (test code = 429) 73 % LYMPHOCYTES RELATIVE PERCENT (BEAKER) (test code = 430) 18 % MONOCYTES RELATIVE PERCENT (BEAKER) (test code = 431) 8 % EOSINOPHILS RELATIVE PERCENT (BEAKER) (test code = 432) 1 % BASOPHILS RELATIVE PERCENT (BEAKER) (test code = 437) 0 % NEUTROPHILS ABSOLUTE COUNT (BEAKER) (test code = 670) 9.71 K/ L 1.56-6.13 H LYMPHOCYTES ABSOLUTE COUNT (BEAKER) (test code = 414) 2.36 K/ L 1.18-3.74 MONOCYTES ABSOLUTE COUNT (BEAKER) (test code = 415) 1.08 K/ L 0. 24-0.36 H EOSINOPHILS ABSOLUTE COUNT (BEAKER) (test code = 416) 0.10 K/ L 0.04-0.36 BASOPHILS ABSOLUTE COUNT (BEAKER) (test code = 417) 0.05 K/ L 0. 01-0.08 IMMATURE GRANULOCYTES-RELATIVE PERCENT (BEAKER) (test code = 2801) 1 % 0-1 POCT-GLUCOSE [id number] 21:56:00* Test Item Value Reference Range Interpretation Comments POC-GLUCOSE METER (BEAKER) (test code = 1538) 89 mg/dL 70-110 TESTED AT [address] [address] POCT-GLUCOSE [id number] 18:36:00* Test Item Value Reference Range Interpretation Comments POC-GLUCOSE METER (BEAKER) (test code = 1538) 302 mg/dL 70-110 H Notified FAITH IGNACIO/TESTED AT [address] [address] POCT-GLUCOSE [id number] 15:37:00* Test Item Value Reference Range Interpretation Comments POC-GLUCOSE METER (BEAKER) (test code = 1538) 111 mg/dL 70-110 H TESTED AT [address] [address] POCT-GLUCOSE [id number] 13:10:00* Test Item Value Reference Range Interpretation Comments POC-GLUCOSE METER (BEAKER) (test code = 1538) 123 mg/dL 70-110 H TESTED AT [address] [address] POCT-GLUCOSE [id number] 11:24:00* Test Item Value Reference Range Interpretation Comments POC-GLUCOSE METER (BEAKER) (test code = 1538) 270 mg/dL 70-110 H TESTED AT [address] [address] POCT-GLUCOSE [id number] 08:58:00* Test Item Value Reference Range Interpretation Comments POC-GLUCOSE METER (BEAKER) (test code = 1538) 282 mg/dL 70-110 H TESTED AT [address] [address] URINALYSIS W/ [id number] 04:48:00* Test Item Value Reference Range Interpretation Comments COLOR (BEAKER) (test code = 470) Yellow CLARITY (BEAKER) (test code = 469) Clear SPECIFIC GRAVITY UA (BEAKER) (test code = 468) 1.015 1.001-1 .035 PH UA (BEAKER) (test code = 467) 6.5 5.0-8.0 PROTEIN UA (BEAKER) (test code = 464) 100 mg/dL Negative A GLUCOSE UA (BEAKER) (test code = 365) 500 mg/dL Negative A KETONES UA (BEAKER) (test code = 371) Negative Negative BILIRUBIN UA (BEAKER) (test code = 462) Positive Negative A BLOOD UA (BEAKER) (test code = 461) Negative Negative NITRITE UA (BEAKER) (test code = 465) Negative Negative LEUKOCYTE ESTERASE UA (BEAKER) (test code = 466) Negative Negat glenis UROBILINOGEN UA (BEAKER) (test code = 463) 0.2 mg/dL 0.2-1.0 BACTERIA (BEAKER) (test code = 517) Few RBC UA-MANUAL (BEAKER) (test code = 1659) <5 /HPF WBC UA-MANUAL (BEAKER) (test code = 1661) <5 /HPF SQUAMOUS EPITHELIAL MANUAL (BEAKER) (test code = 1663) <5 /HPF SOURCE(BEAKER) (test code = 2795) POCT-GLUCOSE [id number] 04:25:00* Test Item Value Reference Range Interpretation Comments POC-GLUCOSE METER (BEAKER) (test code = 1538) 295 mg/dL 70-110 H TESTED AT [facility] [address] [place] [address] LACTIC ACID, VENOUS, WHOLE [id number] 03:15:00* Test Item Value Reference Range Interpretation Comments LACTATE BLOOD VENOUS (2) (BEAKER) (test code = 2872) 1.4 mmol/L 0 .5-2.2 CT, CHEST WITH IV CONTRAST- PE TEST [id number] 03:03:00FINAL REPORT EXAMINATION: CHEST CT / PE PROTOCOL CLINICAL HISTORY: CHEST PAIN, SHORTNESS OF BREATH COMPARISON EXAMINATION: 07/27/2016 TECHNIQUE: Following the administration of I.V. contrast, axial images were acquired through the thorax during the early pulmonary arterial phase of imaging. F ollowing postprocessing, coronal and sagittal reformatted images were created an d reviewed. The exam was performed according to our departmental dose optimizati on program which includes automated exposure control, adjustment of the mA and/o r kV according to patient's size and/or use of iterative reconstructive techniqu e. FINDINGS: Scattered patchy opacities are noted in both lungs. The opacities are associated with reticulonodular clustered components including several that demonstrate a tree-in-bud morphology. The opacities are most conspicuous in the upper lobes. Subtle bilateral groundglass opacities are also noted which are re latively symmetric. No evidence of a significant pleural effusion, pneumothorax or pneumomediastinum. No evidence of a discrete pulmonary embolus. The thoracic aorta is normal in course and caliber. No evidence of an aortic dissection. The heart is mildly prominent. No evidence of a pericardial effusion. The esophagu s is decompressed. Numerous shotty nonspecific lymph nodes are noted in the lowe r neck, mediastinum and both axillary regions. As before, the liver is relativel y large measuring 26 cm in width. Limited images of the upper abdomen demonstrat e mildly heterogeneous enhancement of the liver with multiple small subcentimete r hypodensities as well as vague asymmetric areas of increased enhancement, nons pecific and more conspicuous than on the previous exam. Dedicated liver protocol abdominal MRI could be performed for further tissue characterization if clinica lly warranted. As before, the spleen is relatively small. Small nodular foci ar e again noted near the spleen which may reflect excessively splenules. No defini te evidence of an acute thoracic osseous abnormality. IMPRESSION: Bilateral par enchymal lung opacities, etiology indeterminate but concerning for possible acut e multifocal pneumonia. Atypical sources of infection (including but not limited to tuberculosis) would be included in the differential diagnosis given the morp hology and distribution. Interstitial lung disease would also be a consideration including sarcoidosis. A more aggressive neoplastic process cannot be excluded but is less likely. Follow up with a distribution operations manager recommended. Consider imaging surveillance after appropriate medical therapy to document improvement-resoluti on. Shotty lower cervical, axillary or mediastinal lymph nodes, similar but incr eased from previous. Reactive lymph nodes are favored, possibly related to the p arenchymal lung findings detailed above. Neoplastic process cannot be excluded. Again, consider imaging surveillance. Heterogeneous enhancement of the liver, ne w or more conspicuous than on patient's prior studies. A component may reflect t iming of the contrast bolus. However, pathologic process cannot be excluded. Ded icated liver protocol MRI, preferably with contrast could be performed for furth er evaluation. Mildly enlarged heart. Groundglass lung opacities. Atelectasis ve rsus mild edema. No evidence of a PE. Results discussed with Dr. Hernandez 0240 hour s. promotions associate infection control nurse (Fabio) also notified at 0300 hours. Signed: Fabio Mills MDReport Verified Date/Time: 06/01/2018 03:03:58 Reading Location : [address] Reading Room C METABOLIC [id number] 01:24:00* Test Item Value Reference Range Interpretation Comments SODIUM (BEAKER) (test code = 381) 135 meq/L 135-148 POTASSIUM (BEAKER) (test code = 379) 4.1 meq/L 3.6-5.5 CHLORIDE (BEAKER) (test code = 382) 100 meq/L 98-106 CO2 (BEAKER) (test code = 355) 26 meq/L 24-32 BLOOD UREA NITROGEN (BEAKER) (test code = 354) 16 mg/dL 10-26 CREATININE (BEAKER) (test code = 358) 1.13 mg/dL 0.50-1.20 GLUCOSE RANDOM (BEAKER) (test code = 652) 334 mg/dL 70-110 H CALCIUM (BEAKER) (test code = 697) 8.4 mg/dL 8.5-10.5 L EGFR (BEAKER) (test code = 1092) 60 mL/min/1.73 sq m ESTIMATED GFR IS NOT ACCURATE CREATININE CLEARANCE IN PREDICTING GLOMERULAR FILTRATION RATE. ESTIMATED GFR IS NOT APPLICABLE FOR DIALYSIS PATIENTS. LACTIC ACID, VENOUS, WHOLE [id number] 01:22:00* Test Item Value Reference Range Interpretation Comments LACTATE BLOOD VENOUS (2) (BEAKER) (test code = 2872) 1.7 mmol/L 0 .5-2.2 RAPID TROPONIN [id number] 01:22:00* Test Item Value Reference Range Interpretation Comments RAPID TROPONIN I (BEAKER) (test code = 1483) < ng/mL <0.05 CBC W/PLT COUNT & AUTO [id number] 01:11:00* Test Item Value Reference Range Interpretation Comments WHITE BLOOD CELL COUNT (BEAKER) (test code = 775) 15.5 K/ L 4.0- 10.0 H RED BLOOD CELL COUNT (BEAKER) (test code = 761) 3.86 M/ L 4.00-5 .00 L HEMOGLOBIN (BEAKER) (test code = 410) 10.1 GM/DL 12.0-15.0 L HEMATOCRIT (BEAKER) (test code = 411) 32.4 % 36.0-45.0 L MEAN CORPUSCULAR VOLUME (BEAKER) (test code = 753) 84.0 fL 82. 0-99.0 MEAN CORPUSCULAR HEMOGLOBIN (BEAKER) (test code = 751) 26.0 pg 27.0-33.0 L MEAN CORPUSCULAR HEMOGLOBIN CONC (BEAKER) (test code = 752) 31.0 GM/DL 32.0-36.0 L RED CELL DISTRIBUTION WIDTH (BEAKER) (test code = 412) 13.4 % 10.3-14.2 PLATELET COUNT (BEAKER) (test code = 756) 375 K/CU MM 150-430 MEAN PLATELET VOLUME (BEAKER) (test code = 754) 8.5 fL 6.5-10 .5 NEUTROPHILS RELATIVE PERCENT (BEAKER) (test code = 429) 61 % LYMPHOCYTES RELATIVE PERCENT (BEAKER) (test code = 430) 26 % MONOCYTES RELATIVE PERCENT (BEAKER) (test code = 431) 11 % EOSINOPHILS RELATIVE PERCENT (BEAKER) (test code = 432) 2 % BASOPHILS RELATIVE PERCENT (BEAKER) (test code = 437) 1 % NEUTROPHILS ABSOLUTE COUNT (BEAKER) (test code = 670) 9.42 K/ L 1.80-8.00 H LYMPHOCYTES ABSOLUTE COUNT (BEAKER) (test code = 414) 3.98 K/ L 1.48-4.50 MONOCYTES ABSOLUTE COUNT (BEAKER) (test code = 415) 1.63 K/ L 0. 00-1.30 H EOSINOPHILS ABSOLUTE COUNT (BEAKER) (test code = 416) 0.37 K/ L 0.00-0.50 BASOPHILS ABSOLUTE COUNT (BEAKER) (test code = 417) 0.14 K/ L 0. 00-0.20 RAPID INFLUENZA A&B [id number] 00:59:00* Test Item Value Reference Range Interpretation Comments RAPID INFLUENZA A AG (BEAKER) (test code = 1622) Negative Negative, Inconclusive RAPID INFLUENZA B AG (BEAKER) (test code = 1623) Negative Negative, Inconclusive RAD, CHEST, 2 [id number] 00:53:00Reason for exam:->COUGHReason for exam:-> GENERALIZED BODY ACHESReason for exam:->FEVERIs the patient ?->NoShould this be performed at the bedside?->NoFINAL REPORT INDICATION: COUGHGENERALIZED BODY ACHESFEVER COMPARISON: None TECHNIQUE: Frontal and lateral views of the chest. FINDINGS: Lungs and pleura: Clear lungs. No effusion.Heart and mediastinum: Normal heart size. Unremarkable mediastinal contours.Osseous structures: No acute abnormality.Additional findings: None. IMPRESSION: No acute intrathoracic abnormality. Signed: Kacey Alexis Verified Date/Time: 06/01/2018 00:53:22 Reading Location: [facility] C013 Neuro Reading Room D STREP A [id number] 00:49:00* Test Item Value Reference Range Interpretation Comments STREP A ANTIGEN (BEAKER) (test code = 556) Negative Negative RAD, FOOT, MIN 3 VIEWS, [id number] 13:00:00Reason for exam:->FOOT PAINIs the patient ?->NoShould this be performed at the bedside?->NoFINAL REPORT Three views right foot Discussion: There is what is presumably a traumatic probably subacute fracture involving the proximal metaphysis of the third toe proximal phalanx. No significant angulation or disp lacement. Remaining bones and soft tissues are unremarkable. Signed: Shelton Galicia Verified Date/Time: 02/04/2018 13:00:28 Reading Location: [facility] Reading Room D [id number] 00:00:00* Test Item Value Reference Range Interpretation Comments CULTURE (BEAKER) (test code = 1095) No growth in 5 days BLOOD [id number] 00:00:00* Test Item Value Reference Range Interpretation Comments CULTURE (BEAKER) (test code = 1095) No growth in 5 days POCT-GLUCOSE [id number] 08:26:00* Test Item Value Reference Range Interpretation Comments POC-GLUCOSE METER (BEAKER) (test code = 1538) 351 mg/dL 70-110 H TESTED AT [facility] [address] [address] BASIC METABOLIC [id number] 07:30:00* Test Item Value Reference Range Interpretation Comments SODIUM (BEAKER) (test code = 381) 134 meq/L 136-145 L POTASSIUM (BEAKER) (test code = 379) 4.8 meq/L 3.5-5.1 Specimen slightly hemolyzed CHLORIDE (BEAKER) (test code = 382) 106 meq/L 98-107 CO2 (BEAKER) (test code = 355) 20 meq/L 22-29 L BLOOD UREA NITROGEN (BEAKER) (test code = 354) 35 mg/dL 7-21 H CREATININE (BEAKER) (test code = 358) 1.82 mg/dL 0.57-1.25 H Specimen slightly hemolyzed GLUCOSE RANDOM (BEAKER) (test code = 652) 328 mg/dL 70-105 H CALCIUM (BEAKER) (test code = 697) 8.8 mg/dL 8.4-10.2 EGFR (BEAKER) (test code = 1092) 35 mL/min/1.73 sq m ESTIMATED GFR IS NOT ACCURATE CREATININE CLEARANCE IN PREDICTING GLOMERULAR FILTRATION RATE. ESTIMATED GFR IS NOT APPLICABLE FOR DIALYSIS PATIENTS. CBC W/PLT COUNT & AUTO [id number] 06:28:00* Test Item Value Reference Range Interpretation Comments WHITE BLOOD CELL COUNT (BEAKER) (test code = 775) 8.7 K/ L 3.5- 10.5 RED BLOOD CELL COUNT (BEAKER) (test code = 761) 3.53 M/ L 3.93-5 .22 L HEMOGLOBIN (BEAKER) (test code = 410) 9.2 GM/DL 11.2-15.7 L HEMATOCRIT (BEAKER) (test code = 411) 30.0 % 34.1-44.9 L MEAN CORPUSCULAR VOLUME (BEAKER) (test code = 753) 85.0 fL 79. 4-94.8 MEAN CORPUSCULAR HEMOGLOBIN (BEAKER) (test code = 751) 26.1 pg 25.6-32.2 MEAN CORPUSCULAR HEMOGLOBIN CONC (BEAKER) (test code = 752) 30.7 GM/DL 32.2-35.5 L RED CELL DISTRIBUTION WIDTH (BEAKER) (test code = 412) 13.7 % 11.7-14.4 PLATELET COUNT (BEAKER) (test code = 756) 427 K/CU MM 150-450 MEAN PLATELET VOLUME (BEAKER) (test code = 754) 9.6 fL 9.4-12 .3 NUCLEATED RED BLOOD CELLS (BEAKER) (test code = 413) 0 /100 WBC 0 -0 NEUTROPHILS RELATIVE PERCENT (BEAKER) (test code = 429) 55 % LYMPHOCYTES RELATIVE PERCENT (BEAKER) (test code = 430) 31 % MONOCYTES RELATIVE PERCENT (BEAKER) (test code = 431) 10 % EOSINOPHILS RELATIVE PERCENT (BEAKER) (test code = 432) 2 % BASOPHILS RELATIVE PERCENT (BEAKER) (test code = 437) 1 % NEUTROPHILS ABSOLUTE COUNT (BEAKER) (test code = 670) 4.80 K/ L 1.56-6.13 LYMPHOCYTES ABSOLUTE COUNT (BEAKER) (test code = 414) 2.67 K/ L 1.18-3.74 MONOCYTES ABSOLUTE COUNT (BEAKER) (test code = 415) 0.89 K/ L 0. 24-0.36 H EOSINOPHILS ABSOLUTE COUNT (BEAKER) (test code = 416) 0.20 K/ L 0.04-0.36 BASOPHILS ABSOLUTE COUNT (BEAKER) (test code = 417) 0.05 K/ L 0. 01-0.08 IMMATURE GRANULOCYTES-RELATIVE PERCENT (BEAKER) (test code = 2801) 1 % 0-1 POCT-GLUCOSE [id number] 20:31:00* Test Item Value Reference Range Interpretation Comments POC-GLUCOSE METER (BEAKER) (test code = 1538) 342 mg/dL 70-110 H TESTED AT [address] [address] VANCOMYCIN LEVEL, [id number] 20:15:00* Test Item Value Reference Range Interpretation Comments VANCOMYCIN TROUGH (BEAKER) (test code = 522) 22.0 ug/mL 10.0-20.0 H POCT-GLUCOSE [id number] 17:13:00* Test Item Value Reference Range Interpretation Comments POC-GLUCOSE METER (BEAKER) (test code = 1538) 321 mg/dL 70-110 H TESTED AT [address] [address] POCT-GLUCOSE [id number] 12:06:00* Test Item Value Reference Range Interpretation Comments POC-GLUCOSE METER (BEAKER) (test code = 1538) 280 mg/dL 70-110 H TESTED AT [address] [address] RAD, FOOT, 2 VIEWS, [id number] 11:01:00Reason for exam:->foot infection, non healing surgical siteFINAL REPORT TECHNIQUE: Frontal, lateral, and oblique radiographs of the left foot dated 12/11/2017 HISTORY: Foot infection, nonhealing surgical site COMPARISON: Radiograph of the left foot dated 10/30/2017. 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 There appears to be a fracture involving the head of the fourth metatarsal bone. No dislocation. Bones are osteopenic. The Lisfranc joint is well aligned on these nonstress views. No bone erosion or soft tissue nodule seen. No radiodense foreign body or subcutaneous emphysema. IMPRESSION:Postsurgical changes involving the third digit. Fracture of the head of the fourth metatarsal bone. If there is concern for osteomyelitis. Recommend MRI versus nuclear medicine study. Signed: Rohit Dubon MDReport Verified Date/Time: 12/11/2017 11:01:46 Reading Location: [facility] Radiology Reading Room GLOBIN [id number] 08:08:00* Test Item Value Reference Range Interpretation Comments HEMOGLOBIN A1C (BEAKER) (test code = 368) 12.3 % 4.3-6.1 H POCT-GLUCOSE [id number] 07:51:00* Test Item Value Reference Range Interpretation Comments POC-GLUCOSE METER (BEAKER) (test code = 1538) 313 mg/dL 70-110 H TESTED AT [place] [address] LIPID [id number] 07:16:00* Test Item Value Reference Range Interpretation Comments TRIGLYCERIDES (BEAKER) (test code = 540) 368 mg/dL CHOLESTEROL (BEAKER) (test code = 631) 151 mg/dL HDL CHOLESTEROL (BEAKER) (test code = 976) 30 mg/dL LDL CHOLESTEROL CALCULATED (BEAKER) (test code = 633) 47 mg/dL Triglyceride Reference Range: Low Risk <150 Borderline 150-199 High Risk 200-499 Very High Risk >=500Cholesterol Reference Range: Low Risk <200 Borderline 200-239 High Risk >240HDL Cholesterol Reference Range: Low Risk >=60 High Risk <40LDL Cholesterol Reference Range: Optimal <100 Near Optimal 100-129 Borderline 130-159 High 160-189 Very High >=190 Specimen slightly lipemicBASIC METABOLIC [id number] 07:13:00* Test Item Value Reference Range Interpretation Comments SODIUM (BEAKER) (test code = 381) 135 meq/L 136-145 L POTASSIUM (BEAKER) (test code = 379) 4.8 meq/L 3.5-5.1 CHLORIDE (BEAKER) (test code = 382) 104 meq/L 98-107 CO2 (BEAKER) (test code = 355) 23 meq/L 22-29 BLOOD UREA NITROGEN (BEAKER) (test code = 354) 26 mg/dL 7-21 H CREATININE (BEAKER) (test code = 358) 1.34 mg/dL 0.57-1.25 H GLUCOSE RANDOM (BEAKER) (test code = 652) 342 mg/dL 70-105 H CALCIUM (BEAKER) (test code = 697) 9.0 mg/dL 8.4-10.2 EGFR (BEAKER) (test code = 1092) 50 mL/min/1.73 sq m ESTIMATED GFR IS NOT ACCURATE CREATININE CLEARANCE IN PREDICTING GLOMERULAR FILTRATION RATE. ESTIMATED GFR IS NOT APPLICABLE FOR DIALYSIS PATIENTS. [id number] 07:01:00* Test Item Value Reference Range Interpretation Comments PROTIME (BEAKER) (test code = 759) 14.6 seconds 11.7-14.7 INR (BEAKER) (test code = 370) 1.1 <=5.9 PARTIAL THROMBOPLASTIN TIME (BEAKER) (test code = 760) 32.4 seconds 22.5-36.0 RECOMMENDED COUMADIN/WARFARIN INR THERAPY RANGESSTANDARD DOSE: 2.0 - 3.0 Inclu jennyfer: PROPHYLAXIS for venous thrombosis, systemic embolization; TREATMENT for leela ous thrombosis and/or pulmonary embolus.HIGH RISK: Target INR is 2.5-3.5 for pat ients with mechanical heart valves.CBC W/PLT COUNT & AUTO [id number] 06:52:00* Test Item Value Reference Range Interpretation Comments WHITE BLOOD CELL COUNT (BEAKER) (test code = 775) 12.2 K/ L 3.5- 10.5 H RED BLOOD CELL COUNT (BEAKER) (test code = 761) 3.38 M/ L 3.93-5 .22 L HEMOGLOBIN (BEAKER) (test code = 410) 8.8 GM/DL 11.2-15.7 L HEMATOCRIT (BEAKER) (test code = 411) 29.0 % 34.1-44.9 L MEAN CORPUSCULAR VOLUME (BEAKER) (test code = 753) 85.8 fL 79. 4-94.8 MEAN CORPUSCULAR HEMOGLOBIN (BEAKER) (test code = 751) 26.0 pg 25.6-32.2 MEAN CORPUSCULAR HEMOGLOBIN CONC (BEAKER) (test code = 752) 30.3 GM/DL 32.2-35.5 L RED CELL DISTRIBUTION WIDTH (BEAKER) (test code = 412) 13.8 % 11.7-14.4 PLATELET COUNT (BEAKER) (test code = 756) 413 K/CU MM 150-450 MEAN PLATELET VOLUME (BEAKER) (test code = 754) 9.4 fL 9.4-12 .3 NUCLEATED RED BLOOD CELLS (BEAKER) (test code = 413) 0 /100 WBC 0 -0 NEUTROPHILS RELATIVE PERCENT (BEAKER) (test code = 429) 61 % LYMPHOCYTES RELATIVE PERCENT (BEAKER) (test code = 430) 30 % MONOCYTES RELATIVE PERCENT (BEAKER) (test code = 431) 8 % EOSINOPHILS RELATIVE PERCENT (BEAKER) (test code = 432) 1 % BASOPHILS RELATIVE PERCENT (BEAKER) (test code = 437) 0 % NEUTROPHILS ABSOLUTE COUNT (BEAKER) (test code = 670) 7.39 K/ L 1.56-6.13 H LYMPHOCYTES ABSOLUTE COUNT (BEAKER) (test code = 414) 3.59 K/ L 1.18-3.74 MONOCYTES ABSOLUTE COUNT (BEAKER) (test code = 415) 1.01 K/ L 0. 24-0.36 H EOSINOPHILS ABSOLUTE COUNT (BEAKER) (test code = 416) 0.10 K/ L 0.04-0.36 BASOPHILS ABSOLUTE COUNT (BEAKER) (test code = 417) 0.02 K/ L 0. 01-0.08 IMMATURE GRANULOCYTES-RELATIVE PERCENT (BEAKER) (test code = 2801) 1 % 0-1 BASIC METABOLIC [id number] 20:45:00* Test Item Value Reference Range Interpretation Comments SODIUM (BEAKER) (test code = 381) 136 meq/L 136-145 POTASSIUM (BEAKER) (test code = 379) 4.8 meq/L 3.5-5.1 Specimen slightly hemolyzed CHLORIDE (BEAKER) (test code = 382) 103 meq/L 98-107 CO2 (BEAKER) (test code = 355) 24 meq/L 22-29 BLOOD UREA NITROGEN (BEAKER) (test code = 354) 28 mg/dL 7-21 H CREATININE (BEAKER) (test code = 358) 1.34 mg/dL 0.57-1.25 H Specimen slightly hemolyzed GLUCOSE RANDOM (BEAKER) (test code = 652) 299 mg/dL 70-105 H CALCIUM (BEAKER) (test code = 697) 9.4 mg/dL 8.4-10.2 EGFR (BEAKER) (test code = 1092) 50 mL/min/1.73 sq m ESTIMATED GFR IS NOT ACCURATE CREATININE CLEARANCE IN PREDICTING GLOMERULAR FILTRATION RATE. ESTIMATED GFR IS NOT APPLICABLE FOR DIALYSIS PATIENTS. LACTIC ACID, VENOUS, WHOLE [id number] 20:41:00* Test Item Value Reference Range Interpretation Comments LACTATE BLOOD VENOUS (2) (BEAKER) (test code = 2872) 2.1 mmol/L 0 .5-2.2 Specimen markedly hemolyzed Effective 09/20/2015: Units/Reference Range ChangeNew: 0.5-2.2 mmol/L Previous: 5 -20 mg/dLSpecimen slightly lipemicCBC W/PLT COUNT & AUTO [id number] 20:29:00* Test Item Value Reference Range Interpretation Comments WHITE BLOOD CELL COUNT (BEAKER) (test code = 775) 9.6 K/ L 3.5- 10.5 RED BLOOD CELL COUNT (BEAKER) (test code = 761) 3.26 M/ L 3.93-5 .22 L HEMOGLOBIN (BEAKER) (test code = 410) 8.7 GM/DL 11.2-15.7 L HEMATOCRIT (BEAKER) (test code = 411) 27.5 % 34.1-44.9 L MEAN CORPUSCULAR VOLUME (BEAKER) (test code = 753) 84.4 fL 79. 4-94.8 MEAN CORPUSCULAR HEMOGLOBIN (BEAKER) (test code = 751) 26.7 pg 25.6-32.2 MEAN CORPUSCULAR HEMOGLOBIN CONC (BEAKER) (test code = 752) 31.6 GM/DL 32.2-35.5 L RED CELL DISTRIBUTION WIDTH (BEAKER) (test code = 412) 13.9 % 11.7-14.4 PLATELET COUNT (BEAKER) (test code = 756) 395 K/CU MM 150-450 MEAN PLATELET VOLUME (BEAKER) (test code = 754) 9.7 fL 9.4-12 .3 NUCLEATED RED BLOOD CELLS (BEAKER) (test code = 413) 0 /100 WBC 0 -0 NEUTROPHILS RELATIVE PERCENT (BEAKER) (test code = 429) 47 % LYMPHOCYTES RELATIVE PERCENT (BEAKER) (test code = 430) 40 % MONOCYTES RELATIVE PERCENT (BEAKER) (test code = 431) 11 % EOSINOPHILS RELATIVE PERCENT (BEAKER) (test code = 432) 2 % BASOPHILS RELATIVE PERCENT (BEAKER) (test code = 437) 0 % NEUTROPHILS ABSOLUTE COUNT (BEAKER) (test code = 670) 4.45 K/ L 1.56-6.13 LYMPHOCYTES ABSOLUTE COUNT (BEAKER) (test code = 414) 3.80 K/ L 1.18-3.74 H MONOCYTES ABSOLUTE COUNT (BEAKER) (test code = 415) 1.05 K/ L 0. 24-0.36 H EOSINOPHILS ABSOLUTE COUNT (BEAKER) (test code = 416) 0.18 K/ L 0.04-0.36 BASOPHILS ABSOLUTE COUNT (BEAKER) (test code = 417) 0.04 K/ L 0. 01-0.08 IMMATURE GRANULOCYTES-RELATIVE PERCENT (BEAKER) (test code = 2801) 0 % 0-1 POCT-GLUCOSE [id number] 19:13:00* Test Item Value Reference Range Interpretation Comments POC-GLUCOSE METER (BEAKER) (test code = 1538) 196 mg/dL 70-110 H TESTED AT [facility] [address] [address] BLOOD [id number] 06:00:00* Test Item Value Reference Range Interpretation Comments CULTURE (BEAKER) (test code = 1095) No growth in 5 days BLOOD [id number] 06:00:00* Test Item Value Reference Range Interpretation Comments CULTURE (BEAKER) (test code = 1095) No growth in 5 days VANCOMYCIN LEVEL, [id number] 08:27:00* Test Item Value Reference Range Interpretation Comments VANCOMYCIN TROUGH (BEAKER) (test code = 522) 19.1 ug/mL 10.0-20.0 POCT-GLUCOSE [id number] 08:07:00* Test Item Value Reference Range Interpretation Comments POC-GLUCOSE METER (BEAKER) (test code = 1538) 292 mg/dL 70-110 H TESTED AT [facility] [address] [address] BASIC METABOLIC [id number] 07:09:00* Test Item Value Reference Range Interpretation Comments SODIUM (BEAKER) (test code = 381) 137 meq/L 136-145 POTASSIUM (BEAKER) (test code = 379) 4.2 meq/L 3.5-5.1 Specimen slightly hemolyzed CHLORIDE (BEAKER) (test code = 382) 105 meq/L 98-107 CO2 (BEAKER) (test code = 355) 25 meq/L 22-29 BLOOD UREA NITROGEN (BEAKER) (test code = 354) 20 mg/dL 7-21 CREATININE (BEAKER) (test code = 358) 1.28 mg/dL 0.57-1.25 H Specimen slightly hemolyzed GLUCOSE RANDOM (BEAKER) (test code = 652) 275 mg/dL 70-105 H CALCIUM (BEAKER) (test code = 697) 9.0 mg/dL 8.4-10.2 EGFR (BEAKER) (test code = 1092) 52 mL/min/1.73 sq m ESTIMATED GFR IS NOT ACCURATE CREATININE CLEARANCE IN PREDICTING GLOMERULAR FILTRATION RATE. ESTIMATED GFR IS NOT APPLICABLE FOR DIALYSIS PATIENTS. CBC W/PLT COUNT & AUTO [id number] 06:39:00* Test Item Value Reference Range Interpretation Comments WHITE BLOOD CELL COUNT (BEAKER) (test code = 775) 9.5 K/ L 3.5- 10.5 RED BLOOD CELL COUNT (BEAKER) (test code = 761) 3.51 M/ L 3.93-5 .22 L HEMOGLOBIN (BEAKER) (test code = 410) 9.3 GM/DL 11.2-15.7 L HEMATOCRIT (BEAKER) (test code = 411) 30.0 % 34.1-44.9 L MEAN CORPUSCULAR VOLUME (BEAKER) (test code = 753) 85.5 fL 79. 4-94.8 MEAN CORPUSCULAR HEMOGLOBIN (BEAKER) (test code = 751) 26.5 pg 25.6-32.2 MEAN CORPUSCULAR HEMOGLOBIN CONC (BEAKER) (test code = 752) 31.0 GM/DL 32.2-35.5 L RED CELL DISTRIBUTION WIDTH (BEAKER) (test code = 412) 14.1 % 11.7-14.4 PLATELET COUNT (BEAKER) (test code = 756) 336 K/CU MM 150-450 MEAN PLATELET VOLUME (BEAKER) (test code = 754) 10.7 fL 9.4-12 .3 NUCLEATED RED BLOOD CELLS (BEAKER) (test code = 413) 0 /100 WBC 0 -0 NEUTROPHILS RELATIVE PERCENT (BEAKER) (test code = 429) 52 % LYMPHOCYTES RELATIVE PERCENT (BEAKER) (test code = 430) 37 % MONOCYTES RELATIVE PERCENT (BEAKER) (test code = 431) 9 % EOSINOPHILS RELATIVE PERCENT (BEAKER) (test code = 432) 1 % BASOPHILS RELATIVE PERCENT (BEAKER) (test code = 437) 1 % NEUTROPHILS ABSOLUTE COUNT (BEAKER) (test code = 670) 4.94 K/ L 1.56-6.13 LYMPHOCYTES ABSOLUTE COUNT (BEAKER) (test code = 414) 3.50 K/ L 1.18-3.74 MONOCYTES ABSOLUTE COUNT (BEAKER) (test code = 415) 0.84 K/ L 0. 24-0.36 H EOSINOPHILS ABSOLUTE COUNT (BEAKER) (test code = 416) 0.12 K/ L 0.04-0.36 BASOPHILS ABSOLUTE COUNT (BEAKER) (test code = 417) 0.06 K/ L 0. 01-0.08 IMMATURE GRANULOCYTES-RELATIVE PERCENT (BEAKER) (test code = 2801) 0 % 0-1 POCT-GLUCOSE [id number] 21:34:00* Test Item Value Reference Range Interpretation Comments POC-GLUCOSE METER (BEAKER) (test code = 1538) 273 mg/dL 70-110 H TESTED AT [place] [id number] POCT-GLUCOSE [id number] 17:06:00* Test Item Value Reference Range Interpretation Comments POC-GLUCOSE METER (BEAKER) (test code = 1538) 208 mg/dL 70-110 H TESTED AT [address] [address] POCT-GLUCOSE [id number] 12:37:00* Test Item Value Reference Range Interpretation Comments POC-GLUCOSE METER (BEAKER) (test code = 1538) 305 mg/dL 70-110 H Notified FAITH IGNACIO/TESTED AT [address] [address] POCT-GLUCOSE [id number] 09:32:00* Test Item Value Reference Range Interpretation Comments POC-GLUCOSE METER (BEAKER) (test code = 1538) 306 mg/dL 70-110 H Notified FAITH IGNACIO/TESTED AT [address] [address] VANCOMYCIN LEVEL, [id number] 04:36:00* Test Item Value Reference Range Interpretation Comments VANCOMYCIN TROUGH (BEAKER) (test code = 522) 14.0 ug/mL 10.0-20.0 POCT-GLUCOSE [id number] 21:02:00* Test Item Value Reference Range Interpretation Comments POC-GLUCOSE METER (BEAKER) (test code = 1538) 255 mg/dL 70-110 H TESTED AT [address] [address] C-REACTIVE [id number] 18:56:00* Test Item Value Reference Range Interpretation Comments C-REACTIVE PROTEIN (BEAKER) (test code = 676) 1.54 mg/dL 0.00-0.5 0 H CBC W/PLT COUNT & AUTO [id number] 17:59:00* Test Item Value Reference Range Interpretation Comments WHITE BLOOD CELL COUNT (BEAKER) (test code = 775) 12.1 10e3/i? L 4. 0-10.0 H RED BLOOD CELL COUNT (BEAKER) (test code = 761) 3.96 10e6/i? L 4.00 -5.00 L HEMOGLOBIN (BEAKER) (test code = 410) 10.7 g/dL 12.0-15.0 L HEMATOCRIT (BEAKER) (test code = 411) 33.0 % 36.0-45.0 L MEAN CORPUSCULAR VOLUME (BEAKER) (test code = 753) 83.4 fL 82. 0-99.0 MEAN CORPUSCULAR HEMOGLOBIN (BEAKER) (test code = 751) 27.0 pg 27.0-33.0 MEAN CORPUSCULAR HEMOGLOBIN CONC (BEAKER) (test code = 752) 32.4 g/dL 32.0-36.0 RED CELL DISTRIBUTION WIDTH (BEAKER) (test code = 412) 13.3 % 10.3-14.2 PLATELET COUNT (BEAKER) (test code = 756) 374 10e3/i? L 150-430 MEAN PLATELET VOLUME (BEAKER) (test code = 754) 7.7 fL 6.5-10 .5 NEUTROPHILS RELATIVE PERCENT (BEAKER) (test code = 429) 50 % LYMPHOCYTES RELATIVE PERCENT (BEAKER) (test code = 430) 41 % MONOCYTES RELATIVE PERCENT (BEAKER) (test code = 431) 7 % EOSINOPHILS RELATIVE PERCENT (BEAKER) (test code = 432) 1 % BASOPHILS RELATIVE PERCENT (BEAKER) (test code = 437) 1 % NEUTROPHILS ABSOLUTE COUNT (BEAKER) (test code = 670) 6.01 10e3/ i? L 1.80-8.00 LYMPHOCYTES ABSOLUTE COUNT (BEAKER) (test code = 414) 4.91 10e3/ i? L 1.48-4.50 H MONOCYTES ABSOLUTE COUNT (BEAKER) (test code = 415) 0.89 10e3/i? L 0.00-1.30 EOSINOPHILS ABSOLUTE COUNT (BEAKER) (test code = 416) 0.16 10e3/ i? L 0.00-0.50 BASOPHILS ABSOLUTE COUNT (BEAKER) (test code = 417) 0.10 10e3/i? L 0.00-0.20 BASIC METABOLIC [id number] 17:59:00* Test Item Value Reference Range Interpretation Comments SODIUM (BEAKER) (test code = 381) 141 meq/L 135-148 POTASSIUM (BEAKER) (test code = 379) 3.7 meq/L 3.6-5.5 CHLORIDE (BEAKER) (test code = 382) 102 meq/L 98-106 CO2 (BEAKER) (test code = 355) 30 meq/L 24-32 BLOOD UREA NITROGEN (BEAKER) (test code = 354) 16 mg/dL 10-26 CREATININE (BEAKER) (test code = 358) 0.75 mg/dL 0.50-1.20 GLUCOSE RANDOM (BEAKER) (test code = 652) 136 mg/dL 70-110 H CALCIUM (BEAKER) (test code = 697) 9.3 mg/dL 8.5-10.5 EGFR (BEAKER) (test code = 1092) 97 mL/min/1.73 sq m ESTIMATED GFR IS NOT ACCURATE CREATININE CLEARANCE IN PREDICTING GLOMERULAR FILTRATION RATE. ESTIMATED GFR IS NOT APPLICABLE FOR DIALYSIS PATIENTS. RAD, FOOT, MIN 3 VIEWS, [id number] 17:45:00Reason for exam:->TOE PAINIs the patient ?->NoShould this be performed at the bedside?->NoFINAL REPORT Clinical Diagnosis: Toe pain Comparison: No comparison Views: Three views of the left toes Report:Air is visualized in the soft tissues of the third toe distally. Osseous changes are visualized most likely representing an inflammatory process involving the terminal Toft of the distal phalanx and the mid phalanx. Osteomyelitis is favored. Signed: Madelin Munoz Verified Date/Time: 10/30/2017 17:45:28 Reading Location: [address] Consult Reading Room Electronically signed by: MADELIN MUNOZ M.D. on 2017 05:45 PM POCT-GLUCOSE [id number] 09:29:00* Test Item Value Reference Range Interpretation Comments POC-GLUCOSE METER (GAL) (test code = 1538) 438 mg/dL 70-110 HH TESTED AT [address] [address] POCT-GLUCOSE [id number] 08:24:00* Test Item Value Reference Range Interpretation Comments POC-GLUCOSE METER (GAL) (test code = 1538) 432 mg/dL 70-110 HH Notified FAITH IGNACIO/TESTED AT [address] [address] Bedside [id number] 12:12:00* Test Item Value Reference Range Interpretation Comments Bedside Glucose (test code = 62019-1) 171 70-120 H Meter ID: [id number] [facility] 2017-[facility]-31 10:26:00* Test Item Value Reference Range Interpretation Comments Sodium Level (test code = 2951-2) 137 136-145 [facility] Rjaim8739-26-39 10:26:00* Test Item Value Reference Range Interpretation Comments Potassium Level (test code = 2823-3) 3.8 3.5-5.1 [facility]manChloride [id number] 10:26:00* Test Item Value Reference Range Interpretation Comments Chloride Level (test code = 2075-0) 104 98-107 [facility]manCarbon Dioxide [id number] 10:26:00* Test Item Value Reference Range Interpretation Comments Carbon Dioxide Level (test code = 2028-9) 24 22-29 [facility]manAnion [id number] 10:26:00* Test Item Value Reference Range Interpretation Comments Anion Gap (test code = 11821-6) 12.8 8-16 [facility]manBlood Urea Kvgfzhwu0535-74-50 10:26:00* Test Item Value Reference Range Interpretation Comments Blood Urea Nitrogen (test code = 3094-0) 13 7-26 [facility]manCreatinine2018-04-15 10:26:00* Test Item Value Reference Range Interpretation Comments Creatinine (test code = 2160-0) 1.11 0.57-1.11 [facility]manBUN/Creatinine Lxzdi8604-71-89 10:26:00* Test Item Value Reference Range Interpretation Comments BUN/Creatinine Ratio (test code = 3097-3) 12 6-25 [facility]manEstimat Glomerular Filtration Rate 2017-08-31 10:26:00* Test Item Value Reference Range Interpretation Comments Estimat Glomerular Filtration Rate (test code = 89768-7) 51 >60 L Ranges were taken from the National Kidney Disease Education Program and the [facility] literature.Reference ranges:60 or greater: Gwvxit18-90 ( for 3 consecutive months): Chronic kidney disease 15 or less: Kidney failureTexas Health KaufmanGlucose Fjnde6747-13-17 10:26:00* Test Item Value Reference Range Interpretation Comments Glucose Level (test code = PDB0931) 157 74-118 H [facility]manCalcium Klcbo2851-81-72 10:26:00* Test Item Value Reference Range Interpretation Comments Calcium Level (test code = 34239-3) 8.9 8.4-10.2 [facility]manTotal Pyphoxeyz3307-14-11 10:26:00* Test Item Value Reference Range Interpretation Comments Total Bilirubin (test code = 1975-2) 0.3 0.2-1.2 [facility]manAspartate Amino Transf (AST/SGOT) 2017-08-31 10:26:00* Test Item Value Reference Range Interpretation Comments Aspartate Amino Transf (AST/SGOT) (test code = Aspartate Amino Transf (AST/SGOT)) 17 5-34 [facility]manAlanine Aminotransferase (ALT/SGPT) 2017-08-31 10:26:00* Test Item Value Reference Range Interpretation Comments Alanine Aminotransferase (ALT/SGPT) (test code = 1742-6) 38 0-55 [facility] Hzhedfk5065-65-44 10:26:00* Test Item Value Reference Range Interpretation Comments Total Protein (test code = 2885-2) 7.0 6.5-8.1 [facility]manAlbumin2018-04-15 10:26:00* Test Item Value Reference Range Interpretation Comments Albumin (test code = 1751-7) 2.7 3.5-5.0 L [facility]manGlobulin2018-04-15 10:26:00* Test Item Value Reference Range Interpretation Comments Globulin (test code = 28799-5) 4.3 2.3-3.5 H [facility]manAlbumin/Globulin Cnwfl1367-93-17 10:26:00 * Test Item Value Reference Range Interpretation Comments Albumin/Globulin Ratio (test code = 1759-0) 0.6 0.8-2.0 L [facility]manAlkaline Boalnxjquua1641-40-62 10:26:00* Test Item Value Reference Range Interpretation Comments Alkaline Phosphatase (test code = 6768-6) 96 40-150 [facility]manB-Type Natriuretic Hgruzmv4453-89-14 10:26:00* Test Item Value Reference Range Interpretation Comments B-Type Natriuretic Peptide (test code = 11592-4) 159.0 0-100 H [facility]manMagnesium Nhuzq5483-75-99 08:22:00* Test Item Value Reference Range Interpretation Comments Magnesium Level (test code = 40395-6) 1.5 1.3-2.1 [facility]manWhite Blood Penjg7178-38-33 08:06:00* Test Item Value Reference Range Interpretation Comments White Blood Count (test code = 6690-2) 12.94 4.8-10.8 H [facility]manRed Blood Oelvs2051-47-80 08:06:00* Test Item Value Reference Range Interpretation Comments Red Blood Count (test code = 789-8) 3.29 3.6-5.1 L [facility]manHemoglobin2018-04-15 08:06:00* Test Item Value Reference Range Interpretation Comments Hemoglobin (test code = 40809-3) 8.9 12.0-16.0 L [facility]manHematocrit2018-04-15 08:06:00* Test Item Value Reference Range Interpretation Comments Hematocrit (test code = 4544-3) 27.2 34.2-44.1 L [facility]manMean Corpuscular Qpioun0745-77-07 08:06:00* Test Item Value Reference Range Interpretation Comments Mean Corpuscular Volume (test code = 787-2) 82.7 81-99 [facility]manMean Corpuscular Cxbmrkfgho6550-70-08 08:06:00* Test Item Value Reference Range Interpretation Comments Mean Corpuscular Hemoglobin (test code = 785-6) 27.1 28-32 L [facility]manMean Corpuscular Hemoglobin Concent 2017-08-31 08:06:00* Test Item Value Reference Range Interpretation Comments Mean Corpuscular Hemoglobin Concent (test code = 786-4) 32.7 31-35 [facility]manRed Cell Distribution Ubngp7151-78-47 08:06:00* Test Item Value Reference Range Interpretation Comments Red Cell Distribution Width (test code = 46027-4) 13.6 11.7 -14.4 [facility]aufmanPlatelet Mfldq6958-47-86 08:06:00* Test Item Value Reference Range Interpretation Comments Platelet Count (test code = 777-3) 437 140-360 H [facility]manNeutrophils (%) (Auto)2017-08-31 08:06:00 * Test Item Value Reference Range Interpretation Comments Neutrophils (%) (Auto) (test code = 18842-5) 56.6 38.7-80.0 [facility]manLymphocytes (%) (Auto)2017-08-31 08:06:00 * Test Item Value Reference Range Interpretation Comments Lymphocytes (%) (Auto) (test code = 736-9) 31.5 18.0-39.1 [facility]manMonocytes (%) (Auto)2017-08-31 08:06:00* Test Item Value Reference Range Interpretation Comments Monocytes (%) (Auto) (test code = 5905-5) 9.0 4.4-11.3 [facility]manEosinophils (%) (Auto)2017-08-31 08:06:00 * Test Item Value Reference Range Interpretation Comments Eosinophils (%) (Auto) (test code = 713-8) 1.8 0.0-6.0 [facility]manBasophils (%) (Auto)2017-08-31 08:06:00* Test Item Value Reference Range Interpretation Comments Basophils (%) (Auto) (test code = 706-2) 0.5 0.0-1.0 [facility]manIM GRANULOCYTES %2017-08-31 08:06:00* Test Item Value Reference Range Interpretation Comments IM GRANULOCYTES % (test code = IM GRANULOCYTES %) 0.6 0.0- 1.0 [facility]manNeutrophils # (Auto)2017-08-31 08:06:00* Test Item Value Reference Range Interpretation Comments Neutrophils # (Auto) (test code = 751-8) 7.3 2.1-6.9 H [facility]manLymphocytes # (Auto)2017-08-31 08:06:00* Test Item Value Reference Range Interpretation Comments Lymphocytes # (Auto) (test code = 24182-1) 4.1 1.0-3.2 H [facility]manMonocytes # (Auto)2017-08-31 08:06:00* Test Item Value Reference Range Interpretation Comments Monocytes # (Auto) (test code = 742-7) 1.2 0.2-0.8 H [facility]manEosinophils # (Auto)2017-08-31 08:06:00* Test Item Value Reference Range Interpretation Comments Eosinophils # (Auto) (test code = 711-2) 0.2 0.0-0.4 [facility]manBasophils # (Auto)2017-08-31 08:06:00* Test Item Value Reference Range Interpretation Comments Basophils # (Auto) (test code = 704-7) 0.1 0.0-0.1 [facility]manAbsolute Immature Granulocyte (auto 2017-08-31 08:06:00* Test Item Value Reference Range Interpretation Comments Absolute Immature Granulocyte (auto (gretchen t code = Absolute Immature Granulocyte (auto) 0.08 0-0.1 [facility]manC-Reactive Xoaknym4647-84-56 13:22:00* Test Item Value Reference Range Interpretation Comments C-Reactive Protein (test code = 1988-5) 58.7 0.0-4.9 H Performed at: [facility] [id number] Director: Manjeet Pritchard MD, Phone: [phone] Health KaufmanDifferential Total Cells Kvfciwd0015-15-85 07:39:00* Test Item Value Reference Range Interpretation Comments Differential Total Cells Counted (test code = Differen tial Total Cells Counted) 100 [facility]manNeutrophils % (Manual)2017-08-29 07:39:00 * Test Item Value Reference Range Interpretation Comments Neutrophils % (Manual) (test code = 26053-3) 64 40-74 [facility]manBand Neutrophils %2017-08-29 07:39:00* Test Item Value Reference Range Interpretation Comments Band Neutrophils % (test code = 764-1) 1 [facility]manLymphocytes % (Manual)2017-08-29 07:39:00 * Test Item Value Reference Range Interpretation Comments Lymphocytes % (Manual) (test code = 737-7) 23 19-48 [facility]manMonocytes % (Manual)2017-08-29 07:39:00* Test Item Value Reference Range Interpretation Comments Monocytes % (Manual) (test code = 744-3) 10 3.4-9.0 H [facility]manEosinophils % (Manual)2017-08-29 07:39:00 * Test Item Value Reference Range Interpretation Comments Eosinophils % (Manual) (test code = 714-6) 2 0-7 [facility]manPlatelet Wepqipql0734-83-77 07:39:00* Test Item Value Reference Range Interpretation Comments Platelet Estimate (test code = 19652-6) ADEQUATE [facility]aufmanPlatelet Morphology Mpukrts8021-08-13 07:39:00* Test Item Value Reference Range Interpretation Comments Platelet Morphology Comment (test code = 54798-0) NORMAL [facility]manRed Cell Morphology Kmehdkt5147-75-41 07:39:00* Test Item Value Reference Range Interpretation Comments Red Cell Morphology Comment (test code = 6742-1) NORMAL [facility]aufmanReactive Lvecphxnrdt5419-59-84 08:45:00* Test Item Value Reference Range Interpretation Comments Reactive Lymphocytes (test code = 17491-7) 3 [facility]manHypochromasia2018-04-12 08:45:00* Test Item Value Reference Range Interpretation Comments Hypochromasia (test code = 728-6) SLIGHT [facility]manPoikilocytosis2018-04-12 08:45:00* Test Item Value Reference Range Interpretation Comments Poikilocytosis (test code = 779-9) SLIGHT [facility]manAnisocytosis2018-04-12 08:45:00* Test Item Value Reference Range Interpretation Comments Anisocytosis (test code = 702-1) SLIGHT [facility]manMacrocytosis2018-04-12 08:45:00* Test Item Value Reference Range Interpretation Comments Macrocytosis (test code = 738-5) MODERATE [facility]manThyroid Stimulating Hormone (TSH) 2017-08-28 07:44:00* Test Item Value Reference Range Interpretation Comments Thyroid Stimulating Hormone (TSH) (test code = 43227-2) 1.031 0.350-4.940 [facility] KaufmanActivated Partial Thromboplast Time 2017-08-28 07:21:00* Test Item Value Reference Range Interpretation Comments Activated Partial Thromboplast Time (test code = 01756-8) 56.8 23.8-35.5 H [facility]manTriglycerides Nicso9338-88-72 07:10:00* Test Item Value Reference Range Interpretation Comments Triglycerides Level (test code = 2571-8) 53 0-149 [facility]manCholesterol Qcnpa2294-89-93 07:10:00* Test Item Value Reference Range Interpretation Comments Cholesterol Level (test code = 2093-3) 108 0-199 Less than 200 mg/dL Low Duyd604 - 239 mg/dL Borderline Ticm276 m g/dl and greater High Risk [facility]aufmanLDL Dzqbtpapqea2012-92-52 07:10:00* Test Item Value Reference Range Interpretation Comments LDL Cholesterol (test code = 2089-1) 54 60-130 L [facility]manHDL Yjhfhoaeuby0908-83-46 07:10:00* Test Item Value Reference Range Interpretation Comments HDL Cholesterol (test code = 2085-9) 43 40-60 [facility]manCholesterol/HDL Rvkew4161-12-71 07:10:00 * Test Item Value Reference Range Interpretation Comments Cholesterol/HDL Ratio (test code = 9830-1) 2.5 3.0-3.6 L [facility]manPhosphorus Rqzbp3699-75-39 07:55:00* Test Item Value Reference Range Interpretation Comments Phosphorus Level (test code = NND2533) 4.4 2.3-4.7 [facility]manCreatine Kinase XY2852-69-91 01:16:00* Test Item Value Reference Range Interpretation Comments Creatine Kinase MB (test code = 73957-7) 1.40 0-5.0 [facility]manTroponin [id number] 01:16:00* Test Item Value Reference Range Interpretation Comments Troponin I (test code = JBQ5375) 0.124 0-0.300 [facility]manCreatine Eoyvkt5465-45-04 00:59:00* Test Item Value Reference Range Interpretation Comments Creatine Kinase (test code = 2157-6) 78 29-168 [facility]manProthrombin Zagf0813-24-69 21:43:00* Test Item Value Reference Range Interpretation Comments Prothrombin Time (test code = 5902-2) 13.4 11.9-14.5 [facility]manProthromb Time International Ratio 2017-08-26 21:43:00* Test Item Value Reference Range Interpretation Comments Prothromb Time International Ratio (test code = 6301-6) 1.10 Oral Anticoagulant Therapy INR Values:1. Low Intensity Therapy 1.5 - 2.02 . Moderate Intensity Therapy 2.0 - 3.03. High Intensity Therapy(1) 2.5 - 3. 54. High Intensity Therapy(2) 3.0 - 4.05. Panic Value INR > 5.0 [facility]aufmanD-Dimer Quantitative (PE/DVT)2017-08-26 21:43:00* Test Item Value Reference Range Interpretation Comments D-Dimer Quantitative (PE/DVT) (test code = 17483-4) 2.21 0. 00-0.45 H As with all in vitro diagnostic tests, the test results should be interpreted by the physician in conjunction with clinical findings and other test results.Test results are reported in NEW D-dimer units(ug/mLFEU).[facility]manArterial Blood pB5303-58-70 21:00:00* Test Item Value Reference Range Interpretation Comments Arterial Blood pH (test code = 2744-1) 7.44 7.31-7.41 H [facility]manArterial Blood Partial Pressure CO2 2017-08-26 21:00:00* Test Item Value Reference Range Interpretation Comments Arterial Blood Partial Pressure CO2 (test code = 2019-8) 27 41-51 L [facility]manArterial Blood Partial Pressure O2 2017-08-26 21:00:00* Test Item Value Reference Range Interpretation Comments Arterial Blood Partial Pressure O2 (test code = 2018-8) 48 80-105 LL Results called/hand delivered to DR. PRITCHARD at 2058 on 08/26/17 by PAZ CHAVEZ.[facility] [id number] 21:00:00* Test Item Value Reference Range Interpretation Comments Arterial Blood HCO3 (test code = 1960-4) 19 23-28 L [facility] Base [id number] 21:00:00* Test Item Value Reference Range Interpretation Comments Arterial Blood Base Excess (test code = 1925-7) -6.0 -2-3 L [facility] Oxygen Saturation 2017-08-26 21:00:00* Test Item Value Reference Range Interpretation Comments Arterial Blood Oxygen Saturation (test code = 2708-6) 86.0 95-98 L [facility]:00* Test Item Value Reference Range Interpretation Comments FiO2 (test code = FiO2) 21 [facility]com[facility] [id number] 08:49:00* Test Item Value Reference Range Interpretation Comments Vancomycin Level Trough (test code = 4092-3) 9.3 5.0-10.0 [facility]th[facility] Sedimentation [id number] 07:54:00* Test Item Value Reference Range Interpretation Comments Erythrocyte Sedimentation Rate (test code = 4537-7) 52 0- 20 H [facility]manHemoglobin A1c [id number] 07:35:00 * Test Item Value Reference Range Interpretation Comments Hemoglobin A1c Percent (test code = Hemoglobin A1c Percent) 11.9 4.0-7.0 H [facility]POCT-GLUCOSE [id number] 12:10:00* Test Item Value Reference Range Interpretation Comments POC-GLUCOSE METER (BEAKER) (test code = 1538) 133 mg/dL 70-110 H TESTED AT [facility] [address] [address] HEMOGLOBIN [id number] 08:17:00* Test Item Value Reference Range Interpretation Comments HEMOGLOBIN A1C (BEAKER) (test code = 368) 13.3 % 4.3-6.1 H POCT-GLUCOSE [id number] 07:33:00* Test Item Value Reference Range Interpretation Comments POC-GLUCOSE METER (BEAKER) (test code = 1538) 268 mg/dL 70-110 H TESTED AT [address] [address] B-TYPE NATRIURETIC FACTOR (BNP)2016-07-28 06:03:00* Test Item Value Reference Range Interpretation Comments B-TYPE NATRIURETIC PEPTIDE (BEAKER) (test code = 700) 57 pg/mL 0-100 POCT-GLUCOSE [id number] 01:17:00* Test Item Value Reference Range Interpretation Comments POC-GLUCOSE METER (BEAKER) (test code = 1538) 270 mg/dL 70-110 H TESTED AT [address] [address] POCT-GLUCOSE [id number] 20:33:00* Test Item Value Reference Range Interpretation Comments POC-GLUCOSE METER (BEAKER) (test code = 1538) 312 mg/dL 70-110 H TESTED AT [address] [address] POCT-GLUCOSE [id number] 17:44:00* Test Item Value Reference Range Interpretation Comments POC-GLUCOSE METER (BEAKER) (test code = 1538) 376 mg/dL 70-110 H TESTED AT [address] [address] KETONE, [id number] 16:40:00* Test Item Value Reference Range Interpretation Comments KETONES, BLOOD (BEAKER) (test code = 1103) 0.1 mmol/L <0.4 BASIC METABOLIC [id number] 16:11:00* Test Item Value Reference Range Interpretation Comments SODIUM (BEAKER) (test code = 381) 140 meq/L 135-148 POTASSIUM (BEAKER) (test code = 379) 4.5 meq/L 3.6-5.5 CHLORIDE (BEAKER) (test code = 382) 100 meq/L 98-106 CO2 (BEAKER) (test code = 355) 29 meq/L 24-32 BLOOD UREA NITROGEN (BEAKER) (test code = 354) 14 mg/dL 10-26 CREATININE (BEAKER) (test code = 358) 0.79 mg/dL 0.50-1.20 GLUCOSE RANDOM (BEAKER) (test code = 652) 414 mg/dL 70-110 HH CALCIUM (BEAKER) (test code = 697) 8.9 mg/dL 8.5-10.5 EGFR (BEAKER) (test code = 1092) 92 mL/min/1.73 sq m ESTIMATED GFR IS NOT ACCURATE CREATININE CLEARANCE IN PREDICTING GLOMERULAR FILTRATION RATE. ESTIMATED GFR IS NOT APPLICABLE FOR DIALYSIS PATIENTS. PT/[id number] 16:09:00* Test Item Value Reference Range Interpretation Comments PROTIME (BEAKER) (test code = 759) 10.0 seconds 9.8-12.0 INR (BEAKER) (test code = 370) 0.9 <=5.9 PARTIAL THROMBOPLASTIN TIME (BEAKER) (test code = 760) 20.2 seconds 25.8-34.5 L RECOMMENDED COUMADIN/WARFARIN INR THERAPY RANGESSTANDARD DOSE: 2.0 - 3.0 Inclu jennyfer: PROPHYLAXIS for venous thrombosis, systemic embolization; TREATMENT for leela ous thrombosis and/or pulmonary embolus.HIGH RISK: Target INR is 2.5-3.5 for pat ients with mechanical heart valves.RAPID [id number] 16:02:00* Test Item Value Reference Range Interpretation Comments RAPID CKMB (BEAKER) (test code = 1482) 3.4 ng/mL 0.0-4.3 RAPID TROPONIN [id number] 16:02:00* Test Item Value Reference Range Interpretation Comments RAPID TROPONIN I (BEAKER) (test code = 1483) < ng/mL <0.05 CBC W/PLT COUNT & AUTO [id number] 15:58:00* Test Item Value Reference Range Interpretation Comments WHITE BLOOD CELL COUNT (BEAKER) (test code = 775) 11.7 10e3/ L 4.0- 10.0 H RED BLOOD CELL COUNT (BEAKER) (test code = 761) 3.92 10e6/ L 4.00-5 .00 L HEMOGLOBIN (BEAKER) (test code = 410) 10.5 g/dL 12.0-15.0 L HEMATOCRIT (BEAKER) (test code = 411) 33.0 % 36.0-45.0 L MEAN CORPUSCULAR VOLUME (BEAKER) (test code = 753) 84.1 fL 82. 0-99.0 MEAN CORPUSCULAR HEMOGLOBIN (BEAKER) (test code = 751) 26.8 pg 27.0-33.0 L MEAN CORPUSCULAR HEMOGLOBIN CONC (BEAKER) (test code = 752) 31.9 g/dL 32.0-36.0 L RED CELL DISTRIBUTION WIDTH (BEAKER) (test code = 412) 12.8 % 10.3-14.2 PLATELET COUNT (BEAKER) (test code = 756) 359 10e3/ L 150-430 MEAN PLATELET VOLUME (BEAKER) (test code = 754) 7.7 fL 6.5-10 .5 NEUTROPHILS RELATIVE PERCENT (BEAKER) (test code = 429) 54 % LYMPHOCYTES RELATIVE PERCENT (BEAKER) (test code = 430) 37 % MONOCYTES RELATIVE PERCENT (BEAKER) (test code = 431) 8 % EOSINOPHILS RELATIVE PERCENT (BEAKER) (test code = 432) 1 % BASOPHILS RELATIVE PERCENT (BEAKER) (test code = 437) 1 % NEUTROPHILS ABSOLUTE COUNT (BEAKER) (test code = 670) 6.31 10e3/ L 1.80-8.00 LYMPHOCYTES ABSOLUTE COUNT (BEAKER) (test code = 414) 4.28 10e3/ L 1.48-4.50 MONOCYTES ABSOLUTE COUNT (BEAKER) (test code = 415) 0.93 10e3/ L 0. 00-1.30 EOSINOPHILS ABSOLUTE COUNT (BEAKER) (test code = 416) 0.12 10e3/ L 0.00-0.50 BASOPHILS ABSOLUTE COUNT (BEAKER) (test code = 417) 0.08 10e3/ L 0. 00-0.20 CHEST SINGLE (PORTABLE) [facility] [address] [address] Patient Name: ANDREA HOOVER MR #: [id number] : 1960 Age/Sex: 57/F Req #: [id number] Adm Physician: AMINAH ROBBINS MD Ordered by: AMINAH ROBBINS MD Report #: [id number] Location: MED/SURG3 Room/Bed: [facility] Procedure: [id number] DX /CHEST SINGLE (PORTABLE) Exam Date: Exam Time: REPORT STATUS: Signed EXAMINATION: CHEST SINGLE (PORTABLE) INDIC ATION: COMPARISON: Chest radiograph 08/27/2017 FINDINGS: AP view Bones and soft tissues are unchanged. See impression. IMPRE SSION: 1. Mild interstitial edema and small bilateral pleural effusions. 2. Persistent prominence of the right paratracheal stripe which could reflect mediastinal lipomatosis but is otherwise nonspecific. Recommend upright PA and lateral chest radiograph. Signed by: DR. Arsalan aWtson MD on 8 6:12 PM Dictated By: ARSALAN WATSON MD 11 Transcribed By: RUCHI on 08/30/171811 COPY TO: AMINAH ROBBINS MD MRI FOOT LEFT [place] [address] Patient Name: ANDREA HOOVER MR #: [id number] : 1960 Age/Sex: 57/F Req #: [id number] Adm Physician: AMINAH ROBBINS MD Ordered by: YOEL HUGGINS MD Report #: [id number] Location: MED/SURG3 Room/Bed: [facility] Procedure: [id number] MRI /MRI FOOT LEFT WO Exam Date: Exam Time: REPO RT STATUS: Signed TECHNIQUE: Magnetic resonance imaging of the LEFT foot wa s performed WITHOUT injected contrast. HISTORY: Left foot pain, cellulit is COMPARISON: None available. DISCUSSION: Bone: Mild bone marrow edema within the distal phalanx. No T1 replacement or cortical erosion. S ubacute-appearing fracture of the middle phalanx of the third toe. Mild edema proximal phalanx of third toe. Joints: No focal cartilage defect. No harish int effusion. Soft Tissues: Soft tissue edema throughout the foot. IMPRESSION: Mild bone marrow edema within the distal phalanx of the villalta llux favored to be reactive. No T1 replacement to confirm osteomyelitis. Signed by: Dr. Jimi Lundy M.D. on 08/27/2017 12:49 PM Dictated By: COURTNEY LUNDY MD 124 9 Transcribed By: RUCHI on 08/27/17 1249 COPY TO: YOEL HUGGINS MD VQ LUNG SCAN VENT PERFUSION [place] [address] Patient Name: ANDREA HOOVER MR #: [id number] : 1960 Age/Sex: 57/F Req #: [id number] Adm Physician: AMIANH ROBBINS MD Ordered by: CRICKET KILGORE MD Report #: [id number] Location: [facility] Room/Bed: [facility] Procedure: [id number] NM/VQ LUNG SCAN VENT PERFUSION Exam Date: Exam T rogelio: REPORT STATUS: Signed EXAM: VENTILATION PERFUSION LUNG SCAN INDICATION: 57 F with abnormal EKG; cellulitis lower extremity COMPARISON: Chest radiograph 08/27/2017 DISCUSSION: Xenon-133 gas 10.5 mCi was administe red via inhalation. Dynamic images of the lungs in the posterior projection we re obtained through single breath and washout phases. Distribution of tracer a ctivity is mildly irregular throughout the lungs. Washout is diffusely delayed without evidence of air trapping. Perfusion images of the lungs in multi ple projections were obtained following intravenous administration of approxim ately 6 mCi of Tc-99m MAA. Distribution of tracer is mildly irregular througho ut the lungs. There are no segmental perfusion defects of any size. The contou rs of the lungs are well demarcated. The cardiac silhouette is unremarkable . IMPRESSION: 1. Scan findings represent a VERY LOW probability for a cute pulmonary embolic disease based on the PIOPED II criteria. 2. Scan f indings are compatible with diffuse parenchymal and/or obstructive lung diseas e. Signed by: Dr. Mima Pinedo M.D. on 08/27/2017 3:56 PM Dictated By : MIMA PINEDO MD 55 Tra nscribed By: RUCHI on 08/27/171555 COPY TO: CRICKET KILGORE MD ABDOMEN-1VIEW (KUB) [place] [address] Patient Name: ANDREA HOOVER MR #: [id number] : 1960 Age/Sex: 57/F Req #: [id number] [facility] Physician: AMINAH ROBBINS MD Ordered by: AMINAH ROBBINS MD Report #: [id number] Location: MED/SURG3 Room/Bed: [facility] Procedure: [id number] DX /ABDOMEN-1VIEW (KUB) Exam Date: 08/27/17 Exam Time: 1430 REPORT STATUS: Signed PROCEDURE: X-RAY ABDOMEN - KUB LUIS RISON: Chest radiograph 08/27/2017 INDICATIONS: NAUSEA FINDINGS: Moderate amount of stool in the colon. Paucity of small bowel gas which limits evaluation of the small bowel. There are no calcifications projected o seng the renal shadows, expected course of the ureters or bladder. Phleboliths project over the pelvis. There are no acute osseous abnormalities. CO NCLUSION: Nonspecific bowel gas pattern with paucity of small bowel gas whi ch may either be fluid filled or collapsed. Dictated by: Arsalan Watson M.D. on 08/27/2017 at 15:35 Electronically approved by: Arsalan jasmine M.D. on 08/27/2017 at 15:35 Dictated By: ARSALAN WATSON MD 153 Transcribed By: BONG HENRIQUEZ on 08/27/17 153 COPY TO: AMINAH ROBBINS MD CHEST SINGLE (PORTABLE) [place] [address] Patient Name: ANDREA HOOVER MR #: [id number] : 1960 Age/Sex: 57/F Req #: [id number] Adm Physician: AMINAH ROBBINS MD Ordered by: NO AL MD Report #: [id number] Location: MED/SURG3 Room/Bed: [facility] Procedure: [id number] DX/CHEST SINGLE (PORTABLE) Exam Date: Exam Time: REPORT STATUS: Signed EXAM: CHEST SINGLE (PORTABLE), AP 1 view INDICAT ION: Cellulitis COMPARISON: None FINDINGS: LINES/TUBES: None LUNGS : Vascular congestion. PLEURA: No effusions or pneumothorax. HEART AN D MEDIASTINUM: The heart is within normal size limits for technique. Prominenc e of the right paratracheal stripe. BONES AND SOFT TISSUES: No acute findi ngs. IMPRESSION: Nonspecific widening of the upper mediastinum. An uprig ht PA and lateral view of the chest is recommended. Signed by: Dr. Pily Petit M.D. on 08/27/2017 5:48 AM Dictated By: PILY Bobby 7 Transcribed By: RUCHI on 08/27/17547 COPY TO: NO AL MD CT BRAIN WO [place] [address] Patient Name: ANDREA HOOVER MR #: [id number] : 1960 Age/Sex: 57/F Req #: [id number] Adm Physician: AMINAH ROBBINS MD Ordered by: NO AL MD Report #: [id number] Loca tion: MED/SURG3 Room/Bed: [facility] Procedure: [id number] CT/CT BRAIN WO Exam Date: Exam Time: REPORT STATUS: Signed EXAMINATION: Head CT without contrast. HISTORY:Dizzi ness, altered mental status. COMPARISON:None. TECHNIQUE: Multidetector axial images were obtained from the foramen magnum to the vertex without contrast. The images were reconstructed using brain and bone algorithms. Thin section b rain images were reformatted into coronal and sagittal planes. Intravenous contrast: None IMAGE QUALITY: Acceptable. FINDINGS: Skull/sca lp: No lytic or blastic. lesions. No surgical changes. Parenchyma: No abn ormal density. No acute hemorrhage, mass or acute major vascular territorial i nfarct. Arteries: No density suggestive of thrombosis. Dural sinu ses: No abnormal density suggestive of thrombosis. Ventricles: No hydroce phalus or displacement. Extra-axial spaces: No abnormal density. B rain volume: Normal for age. Craniocervical junction: No mass, Chiari malf ormation, or basilar invagination. Sella: No mass. Paranasal/mast oid sinuses: Imaged portions unremarkable. IMPRESSION: No intracranial ab normality. Signed by: Dr. Efrain Francis M.D. on 08/26/2017 10:33 PM Dictated By: EFRAIN FRANCIS MD 32 Transcribed By: RUCHI on 08/26/172232 COPY TO: NO SHARPE MD FOOT LEFT COMPLETE [place] [address] Patient Name: ANDREA HOOVER MR #: [id number] : 1960 Age/Sex: 57/F Req #: [id number] Adm Physician: AMINAH ROBBINS MD Ordered by: JOSH PRATER DPM Report #: [id number] Location: MED/SURG3 Room/Bed: [facility] Procedure: [id number] DX/F OOT LEFT COMPLETE Exam Date: 08/22/17 Exam Time: 091 0 REPORT STATUS: Signed PROCEDURE: FOOT LEFT COMPLETE TECHNIQUE: AP, lateral and oblique views left foot INDICATION: Great toe swelling COM PARISON: [facility], DX, FOOT LEFT COMPLETE, 08/19/2017, 21:01. FINDINGS: The left foot is intact and in anatomic alignment. Soft tissu e swelling is decreased relative to August 3. No acute focal erosion or perios teal reaction. Chronic fracture of the middle toe middle phalanx without b ridging. No foreign bodies. CONCLUSION: 1. No acute abnormality of t he great toe. 2. Regional soft tissue swelling appears decreased from August 19 . 3. Chronic fracture of the middle toe middle phalanx without osseous brid ging. Dictated by: Preston Lagos M.D. on 08/22/2017 at 9:38 Electronically approved by: Preston Lagos M.D. on 08/22/2017 at 9:38 Dictated By: PRESTON LAGOS MD 7 Transcribed By: SKIP on 08/22/17937 C OPY TO: JOSH PRATER DPM FOOT LEFT COMPLETE [place] [address] Patient Name: ANDREA HOOVER MR #: [id number] : 1960 Age/Sex: 57/F Req #: [id number] Adm Physician: KAYA VAN MD Ordered by: CRICKET KILGORE MD Report #: [id number] Location: [facility] Room/Bed: [place] [address] Procedure: [id number] DX/ FOOT LEFT COMPLETE Exam Date: 08/19/17 Exam Time: REPORT STATUS: Signed Exam: Left foot series, 3 views. Clin ical History: Suspected foreign body in the left hallux, cellulitis Compari son: None. Findings: 3 views of the left foot. There is normal bone mineral ization. Negative for acute, displaced fracture or dislocation. Joint spaces a re preserved. Small posterior calcaneal enthesophyte. Ill-defined 6 mm ro unded nodular density projecting in the soft tissues medial to the base of the first metatarsal bone only on the AP view. No radiopaque foreign bodies are i dentified. Impression: 1. Ill-defined 6 mm rounded nodular density pro jecting in the soft tissues medial to the base of the first metatarsal bone is indeterminate. A nonradiopaque foreign body could be a consideration, however , this may be secondary to focal infection, if this is the area of cellulitis. 2. No radiopaque foreign bodies are identified. 3. No cortical ero michelle or destruction to suggest osteomyelitis.. Signed by: Dr. Kwesi Longoria M.D. on 08/19/2017 8:29 PM Dictated By: KWESI LONGORIA MD Electro nically Signed By: KWESI LONGORIA MD on 08/19/172028 Transcribed By: RUCHI huang 08/19/172028 COPY TO: CRICKET KILGORE MD CHEST SINGLE (PORTABLE) [place] [address] Patient Name: ANDREA HOOVER MR #: [id number] : 1960 Age/Sex: 57/F Req #: [id number] Adm Physician: Ordered by: CRICKET KILGORE MD Report #: [id number] Location: ER Room/Bed: Procedure: [id number] DX/CHEST SINGLE (PORTABLE) Exam Date: Exam Time: REPORT STATUS: Signed PROCEDURE: CHEST SINGLE (PORTABLE) COMPARISON: None. INDICATIONS: FEVER, T OE INFECTION FINDINGS: LUNGS: Well-inflated without mass or infilt rate. The vasculature is normal PLEURA: No effusions or pneumothorax. HEART T MEDIASTINUM: The heart is within normal size-limits. No hilar lymphadenopathy. BONES T SOFT TISSUES: No focal osseous lesions. T here is asymmetry of the breasts suggestive of postoperative changes of the r ight breast. Please correlate with surgical history. No radiopaque foreign eric dies in the soft tissues. CONCLUSION: No acute thoracic ab normality. Dictated by: Jeffrey Hoover M.D. on 08/19/2017 at 18:59 Electronically approved by: Jeffrey Hoover M.D. on 08/19/2017 at 18: 59 Dictated By: JEFFREY HOOVER MD 58 Transcribed By: SKIP on 08/19/171858 COPY TO: CRICKET KILGORE MD
--- NOTE | 2020-01-16 13:51 | Emergency Department Note ---
History of Present Illnes History of Present Illness Chief Complaint: General Medicine Complaints History of Present Illness This is a 59 year old female . Chief Complaint Comment PATIENT IN FROM HOME WITH COMPLAINTS OF SHORTNESS OF BREATH AND FEVER X 1 WEEK, PATIENT ALSO WITH COMPLAINTS OF ULCER TO RIGHT GREAT TOE AND FOOT - STATES THAT SHE HAS BEEN ON ABX X 2 WEEKS. 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 PATIENT ALERT AND ORIENTED, RESP EVEN AND NONLABORED, AMBULATORY WITHOUT ASSISTANCE, ABLE TO SPEAK IN COMPLETE SENTENCES, O2 SATS 100% ON ROOM AIR Historian: Patient Arrival Mode: Car Onset (how long ago): week(s) Severity: moderate Onset quality: gradual Duration (how long): week(s) Progression: worsening Chronicity: recurrent Relieving factors: none Exacerbating factors: none Past Medical/Family History Physician Review I have reviewed the patient's past medical and family history. Any updates have been documented here. 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 Social History Physically hurt or threatened: No Other Last Tetanus: UNK Review of Systems Review of Systems Constitutional: Reports no symptoms EENTM: Reports no symptoms Cardiovascular: Reports no symptoms Respiratory: Reports no symptoms Gastrointestinal: Reports no symptoms Genitourinary: Reports no symptoms Musculoskeletal: Reports as per HPI Integumentary: Reports no symptoms Neurological: Reports no symptoms Psychological: Reports no symptoms Endocrine: Reports no symptoms Hematological/Lymphatic: Reports no symptoms Physical Exam Related Data Allergies: Coded Allergies: lisinopril (Verified Allergy, Unknown, 01/16/20) tramadol (Verified Adverse Reaction, Intermediate, VOMITING, 01/16/20) Triage Vital Signs Vital Signs Date Time Temp Pulse Resp B/P (MAP) Pulse Ox O2 Delivery O2 Flow Rate FiO2 01/16/20 12:20 100.4 86 20 174/78 100 Room Air Vital signs reviewed: Yes Physical Exam CONSTITUTIONAL Constitutional: Present well-developed, Present well-nourished HENT HENT: Present normocephalic, Present atraumatic, Present oropharynx clear/moist, Present nose normal HENT L/R: Present left ext ear normal, Present right ext ear normal EYES Eyes: Reports PERRL, Reports conjunctivae normal NECK Neck: Present ROM normal PULMONARY Pulmonary: Present effort normal, Present breath sounds normal CARDIOVASCULAR Cardiovascular: Present regular rhythm, Present heart sounds normal, Present capillary refill normal, Present normal rate GASTROINTESTINAL Abdominal: Present soft, Present nontender, Present bowel sounds normal GENITOURINARY Genitourinary: Present exam deferred SKIN Skin: Present warm, Present dry MUSCULOSKELETAL Musculoskeletal: Present ROM normal NEUROLOGICAL Neurological: Present alert, Present oriented x 3, Present no gross motor or sensory deficits PSYCHOLOGICAL Psychological: Present mood/affect normal, Present judgement normal Results Laboratory Result Diagram: 01/16/20 1230 Laboratory Laboratory Tests Test 01/16/20 12:38 01/16/20 12:30 White Blood Count 22.22 x10e3/uL (4.8-10.8) Red Blood Count 3.00 x10e6/uL (3.6-5.1) Hemoglobin 7.6 g/dL (12.0-16.0) Hematocrit 24.4 % (34.2-44.1) Mean Corpuscular Volume 81.3 fL (81-99) Mean Corpuscular Hemoglobin 25.3 pg (28-32) Mean Corpuscular Hemoglobin Concent 31.1 g/dL (31-35) Red Cell Distribution Width 13.2 % (11.7-14.4) Platelet Count 624 x10e3/uL (140-360) Neutrophils (%) (Auto) 77.8 % (38.7-80.0) Lymphocytes (%) (Auto) 12.6 % (18.0-39.1) Monocytes (%) (Auto) 7.7 % (4.4-11.3) Eosinophils (%) (Auto) 0.3 % (0.0-6.0) Basophils (%) (Auto) 0.5 % (0.0-1.0) Neutrophils # (Auto) 17.3 (2.1-6.9) Lymphocytes # (Auto) 2.8 (1.0-3.2) Monocytes # (Auto) 1.7 (0.2-0.8) Eosinophils # (Auto) 0.1 (0.0-0.4) Basophils # (Auto) 0.1 (0.0-0.1) Absolute Immature Granulocyte (auto 0.25 x10e3/uL (0-0.1) Lab results reviewed: Yes Laboratory comments Laboratory Tests Test 01/16/20 15:30 01/16/20 15:00 01/16/20 14:00 01/16/20 13:19 Arterial Blood pH 7.45 (7.35-7.45) Arterial Blood Partial Pressure CO2 33 mmHg (35-45) Arterial Blood Partial Pressure O2 61 mmHg (80-105) Arterial Blood HCO3 23 mmol/L (22-26) Arterial Blood Total CO2 24 Arterial Blood Oxygen Saturation 93.0 % (95-98) Arterial Blood Base Excess -1.0 mmol/L (-2 - 3) FiO2 21 % Lactic Acid Level 2.2 mmol/L (0.5-2.0) 2.1 mmol/L (0.5-2.0) Test 01/16/20 12:38 01/16/20 12:30 Lipase 27 U/L (8-78) White Blood Count 22.22 x10e3/uL (4.8-10.8) Red Blood Count 3.00 x10e6/uL (3.6-5.1) Hemoglobin 7.6 g/dL (12.0-16.0) Hematocrit 24.4 % (34.2-44.1) Mean Corpuscular Volume 81.3 fL (81-99) Mean Corpuscular Hemoglobin 25.3 pg (28-32) Mean Corpuscular Hemoglobin Concent 31.1 g/dL (31-35) Red Cell Distribution Width 13.2 % (11.7-14.4) Platelet Count 624 x10e3/uL (140-360) Neutrophils (%) (Auto) 77.8 % (38.7-80.0) Lymphocytes (%) (Auto) 12.6 % (18.0-39.1) Monocytes (%) (Auto) 7.7 % (4.4-11.3) Eosinophils (%) (Auto) 0.3 % (0.0-6.0) Basophils (%) (Auto) 0.5 % (0.0-1.0) Neutrophils # (Auto) 17.3 (2.1-6.9) Lymphocytes # (Auto) 2.8 (1.0-3.2) Monocytes # (Auto) 1.7 (0.2-0.8) Eosinophils # (Auto) 0.1 (0.0-0.4) Basophils # (Auto) 0.1 (0.0-0.1) Absolute Immature Granulocyte (auto 0.25 x10e3/uL (0-0.1) Sodium Level 130 mmol/L (136-145) Potassium Level 4.6 mmol/L (3.5-5.1) Chloride Level 95 mmol/L (98-107) Carbon Dioxide Level 18 mmol/L (22-29) Anion Gap 21.6 mmol/L (8-16) Blood Urea Nitrogen 23 mg/dL (7-26) Creatinine 2.17 mg/dL (0.57-1.11) Estimat Glomerular Filtration Rate 28 ML/MIN (60-) BUN/Creatinine Ratio 11 (6-25) Glucose Level 261 mg/dL (74-118) Calcium Level 9.6 mg/dL (8.4-10.2) Total Bilirubin 0.4 mg/dL (0.2-1.2) Aspartate Amino Transf (AST/SGOT) 21 IU/L (5-34) Alanine Aminotransferase (ALT/SGPT) 15 IU/L (0-55) Alkaline Phosphatase 140 IU/L (40-150) Creatine Kinase 311 IU/L (29-168) Creatine Kinase MB 1.00 ng/mL (0-5.0) Troponin I 0.021 ng/mL (0-0.300) Total Protein 8.9 g/dL (6.5-8.1) Albumin 2.6 g/dL (3.5-5.0) Globulin 6.3 g/dL (2.3-3.5) Albumin/Globulin Ratio 0.4 (0.8-2.0) Imaging Imaging results reviewed: Yes Impressions IMPRESSION: Hazy opacification the bilateral lung bases which may represent atelectasis and/or developing multifocal pneumonia in the proper clinical context IMPRESSION: 1. Scalloped appearance with periosteal reaction of the distal phalanx of the great toe. This may be related to chronic changes of osteomyelitis or trauma. If this is the area of concern, an MRI of the foot can be considered for more definitive diagnosis. 2. Diffuse soft tissue edema and an area of lucency in the plantar forefoot which may represent subcutaneous emphysema or fluid collection. Signed by: Aquilino Gasca MD on 01/16/2020 2:55 PM Procedures Central Line Placement Central Line Location: right internal jugular Time out performed: Yes Patient Placed on Monitor/Puls: Yes MD Prep: mask, gown, gloves Central Line Prep: Chlorhexidine scrub Local Anesthetic: lidocaine 1% Ultrasound Used for Placement: Yes Central Line Lumen Inserted: triple Post Procedure: sutured in place, good blood return, sterile dressing applied Post Procedure X-ray: tip of catheter in good condition, no pneumothorax seen Patient tolerated procedure: well Complications: none Critical Care Time Total Critical Care Time (min): 75 Critical care time exclusive o: separately billable procedures Critcal care necessary due to: sepsis Assessment & Plan Medical Decision Making MDM Severe sepsis 1353 59 yo F arrived to the ED with concerns of right big toe ulcer, pt met SIRS criteria Organ dysfunction noted with acute renal failure @ 1355 Lactic acid 2.1 1353 Lactic acid 2.2 1452 Lactic acid 0.9 1735 Blood cultures drawn ceftriaxone and vanc given Pt with multiple concerning findings of multifocal PNA, AGMA, and osteomyelitis Assessment & Plan Final Impression: (1) Severe sepsis (2) Diabetic foot (3) Pneumonia Depart Disposition: ADMITTED Last Vital Signs Date Time Temp Pulse Resp B/P (MAP) Pulse Ox O2 Delivery O2 Flow Rate FiO2 01/16/20 12:20 100.4 86 20 174/78 100 Room Air Home Meds Active Scripts Pantoprazole Sodium (PROTONIX) 40 Mg Suspdr.pkt, 40 MG PO BID for 30 Days, #60 Prov:CLIFF SINGLETON RESEARCH GEOLOGIST 04/01/19 Levofloxacin (LEVAQUIN) 500 Mg Tablet, 500 MG PO DAILY for 5 Days, #5 Prov:CLIFF SINGLETON RESEARCH GEOLOGIST 04/01/19 Metronidazole (FLAGYL) 500 Mg Tablet, 500 MG PO TID for 5 Days, #15 Prov:CLIFF SINGLETON RESEARCH GEOLOGIST 04/01/19 Reported Medications Fluticasone/Salmeterol (ADVAIR HFA 115-21 MCG INHALER) 12 Gm Hfa.aer.ad 06/16/19 Valsartan (DIOVAN) 160 Mg Tab, 320 MG PO DAILY, #60 TAB 06/16/19 Temazepam (TEMAZEPAM) 15 Mg Capsule, 7.5 06/16/19 Ropinirole Hcl (ROPINIROLE HCL) 1 Mg Tablet, 1 MG PO DAILY, #30 TAB 06/16/19 Pioglitazone Hcl (PIOGLITAZONE HCL) 45 Mg Tablet, 15 MG PO DAILY, #30 TAB 06/16/19 Omeprazole (OMEPRAZOLE) 40 Mg Capsule.dr, 20 DAILY@0600 06/16/19 Pregabalin (LYRICA) 75 Mg Cap, 200 MG TID, #30 CAP 06/16/19 Hydralazine Hcl (HYDRALAZINE HCL) 25 Mg Tab, 50 MG PO TID, TAB 06/16/19 Famotidine (FAMOTIDINE) 20 Mg Tab, 20 MG PO BID, #30 TAB 06/16/19 Duloxetine Hcl (CYMBALTA) 30 Mg Capsule.dr, 60 MG BID, #30 CAP 06/16/19 Ipratropium/Albuterol Sulfate (COMBIVENT RESPIMAT INHAL SPRAY) 4 Gm Aer.w.adap, 4 GM IH, INH 06/16/19 Baclofen (BACLOFEN) 10 Mg Tablet, 10 MG PO BID, #90 TAB 06/16/19 Vitamin B Complex & Vit C No.3 (B COMPLEX WITH VITAMIN C) 1 Each Capsule 06/16/19 Aspirin (ASPIRIN EC) 81 Mg Tablet.dr, 81 MG PO DAILY, #30 TAB 06/16/19 Insulin Aspart (NOVOLOG) 100 Units/1 Ml Inj 03/24/19 Atorvastatin Calcium (ATORVASTATIN CALCIUM) 40 Mg Tablet, 40 MG PO HS 03/24/19 Carvedilol (CARVEDILOL) 25 Mg Tablet, 25 MG PO BID 03/24/19 Torsemide (TORSEMIDE) 20 Mg Tablet, 20 MG PO DAILY 03/24/19 Trazodone Hcl (TRAZODONE HCL) 150 Mg Tablet, 150 MG PO DAILY 03/24/19 Acetaminophen/Codeine* (TYLENOL # 3*) 1 Ea Tab, 1 TAB PO TID 03/24/19 Medications in the ED Vancomycin HCl 250 ml @ 166.667 mls/hr NOW STAT IV ; Start 01/16/20 at 12:26; Stop 01/16/20 at 13:55 Cefepime HCl 50 ml @ 100 mls/hr Q24H STAT IV ; Start 01/16/20 at 12:26; Stop 01/16/20 at 12:55; Status DC Sodium Chloride 1,000 ml @ 0 mls/hr Q0M IV ; Start 01/16/20 at 12:30; Stop 02/15/20 at 12:29 KATARZYNA MOSQUERA DO Jan 16, 2020 13:51
[2020-01-16] MEDS: SODIUM CHLORIDE 0.9% 1000ML 1,000 ML IV SCH ×2 (13:55→19:30)
[2020-01-16] MEDS ORDERED: ONDANSETRON HCL INJ 2MG/ML 2ML 2 MG/ML VIAL IV STA (14:00)
--- OUTSIDE RECORDS SUMMARY | 2020-01-16 14:12 | XMS REPORT | Clinical Summary ---
Author Author [facility] Address Unknown Phone Unavailable Care Team Providers Care Beer Merchant Name Role Phone Viraj Lomeli MD PCP [...] artery disease) 12/04/2018 Coronary artery disease involving [place] coronary art [place] heart 12/04/2018 without angina pectoris Uncontrolled diabetes [...] disease Brother 3 brothers dec eased f [place] Diabetes Brother Hypertension Brother Cancer Father Diabetes [...] Implanted Type Area Manufactur er 01/16/2017 4301-02 [id number] Adhesion Barrier,Seprafilm 5x6 - Cement/Nguyễn N/A: Abdomen GENZYME [id number] ler/Adhesi SURGICAL Implanted: Qty: 1 on 01/16/2015 by Cesar Klein MD Results Not on fileafter 01/15/2019 Insurance Payer Benefit Subscriber ID Type Phone Address Plan / Group [employer] xxxxxxxxx [facility] [phone] (Home) [place] [phone] Advance Directives For more information, please contact: [facility] [address] [place] [address] Date Inactivated Comments Code Status Date Activated [...]
--- OUTSIDE RECORDS SUMMARY | 2020-01-16 14:14 | XMS REPORT | Continuity of Care Document ---
Author Author [facility] t Organization [facility] Address [address] [place] [address] Phone Unavailable Care Team Providers Care Youth Teacher Name Role Phone NONSTAFF PCP Unavailable Rudy [...] travis [employer] HMO ALLxxxxxxxxxMaps Contracted xxxxxxx xx [facility] [employer] [id number] 2019 00:00:00 [facility] Problems Condition Name Condition Details Condition Category Status Onset Date Resolution Date Last Treatment Date Treating Clinician Comments Source Acute kidney injury Acute kidney injury Disease Active 2018-12-04 00:[facility] Nausea vomiting and diarrhea Nausea vomiting and diarrhea Disease Active 2018-12-04 00:00:00 [facility] Hyperlipidemia Hyperlipidemia Disease Active 2018-12-04 00:00:00 [facility] Gastroesophageal reflux disease without esophagitis Ga stroesophageal reflux disease without esophagitis Disease Active 2018-12-04 00:00:00 [facility] CKD (chronic kidney disease) stage 3, GFR 30-59 ml/min CKD (chronic kidney disease) stage 3, GFR 30-59 ml/min Disease Active 2018-12-04 00:00:00 [facility] PAD (peripheral artery disease) PAD (peripheral artery disease) Dis ease Active 2018-12-04 00:00:00 [facility] Coronary artery disease involving gambell coronary artery of gambell heart without angina pectoris Coronary artery disease involving gambell coronary artery of gambell heart without angina pectoris Disease Active 2018-12-04 00:00:00 [facility] Uncontrolled diabetes mellitus with hype rglycemia, with long-term current use of insulin Uncontrolled diabetes mellitus with hype rglycemia, with long-term current use of insulin Disease Active 2018-12-03 00:00:00 [facility] Diabetic polyneuropathy associated with type 2 diabete s mellitus Diabetic polyneuropathy associated with type 2 diabetes mellitus Disease Acti ve 2017-12-10 00:00:00 [facility] Chronic diastolic CHF (congestive heart failure) Chron ic diastolic CHF (congestive heart failure) Disease Active 2016-07-28 00:00:00 [facility] Chronic anemia Chronic anemia Disease Active 2013-05-18 00:00:00 Overview: Mixed type [facility] Chronic back pain Chronic back pain Disease Active 2013-05-10 00:00:00 [facility] Essential hypertension Essential hypertension Disease Active 2013-05-10 00:00:00 [facility] Acute hyperglycemia Acute hyperglycemia Problem Active [facility] Back pain of lumbosacral region with sciatica Back froylan n of lumbosacral region with sciatica Problem Active [facility] Hypertensive urgency Hypertensive urgency Problem Active [facility] Diarrhea Diarrhea Problem Active [facility] Leukocytosis Leukocytosis Problem Active [facility] Pneumonia Pneumonia Problem Active [facility] Sepsis Sepsis Problem Active [facility] Urinary tract infection UTI (urinary tract infection) Problem Active [facility] Acute respiratory failure Acute respiratory failure Problem Active [facility] Allergies, Adverse Reactions, Alerts Allergy Name Allergy Type Status Severity Reaction(s) Onset Date Inacti ve Date Treating Clinician Comments Source Lisinopril Allergy to Substance Active 2018-12-01 00:00:00 [facility] Lisinopril Propensity to adverse reactions Active 12-10 00:00:00 Cough [facility] Family History Family Member Diagnosis Comments Start Date Stop Date Source Natural brother Coronary artery disease [facility] Natural brother Diabetes [facility] Natural brother Hypertension [facility] Natural father Cancer [facility] Maternal grandmother Diabetes [facility] Natural mother Coronary artery disease [facility] Natural mother Diabetes [facility] Natural mother Hypertension [facility] Paternal grandfather Cancer [facility] Paternal grandmother Diabetes [facility] Natural sister Cancer [facility] Natural sister Diabetes [facility] Natural sister Hypertension [facility] Social History Social Habit Start Date Stop Date Quantity Comments Source Sex Assigned At [facility] Smoking Status Start Date Stop Date Source Never smoker [facility] Medications Ordered Medication Name Filled Medication Name Start Date Stop Da te Current Medication? Ordering Clinician Indication Dosage Frequency Signature (SIG) Comments Components Source ciprofloxacin HCl (CIPRO) 500 MG tablet 2019-12-08 00:00:00 Yes 500mg Q.5D Take 500 mg by mouth 2 (two) times daily. [facility] clindamycin (CLEOCIN) 300 MG capsule 2019-07-30 00:00:00 Ye s 300mg Take 300 mg by mouth. [facility] Levofloxacin (Levaquin) 500 Mg Tablet Levofloxacin (Levaquin ) 500 Mg Tablet 2019-04-01 00:00:00 Yes Annie Singleton [employer] 500 Daily [facility] Metronidazole (Flagyl) 500 Mg Tablet Metronidazole (Flagyl) 500 Mg Tablet 2019-04-01 00:00:00 Yes Annie Singleton [employer]structor [employer] 500 Three T imes A Day [facility] Pantoprazole Sodium (Protonix) 40 Mg Suspdr.pkt Pantop razole Sodium (Protonix) 40 Mg Suspdr.pkt 2019-04-01 00:00:00 Yes Annie Singleton [employer]structor [employer] 4 0 Twice A Day [facility] insulin detemir U-100 (LEVEMIR) 100 unit/mL (3 mL) InPn inje ction 2018-12-04 14:11:17 Yes 56U Inject 56 Units subcutaneously 2 (two) times daily with breakfast and dinner. [facility] pregabalin (LYRICA) 200 MG capsule 2018-12-04 14:11:17 Y es 200mg Q.[id number] Take 200 mg by mouth 3 (three) times daily. [facility] baclofen (LIORESAL) 10 MG tablet 2018-12-04 14:11:16 Yes 10mg Take 10 mg by mouth 2 (two) times daily as needed (for muscle spasms). [facility] albuterol-ipratropium (COMBIVENT RESPIMAT) 20-100 mcg/actuat ion Mist inhaler 2018-12-04 14:11:16 Yes 2{puff} Inhale 2 puffs by mouth via inhaler daily as needed for Wheezing. [facility] hydrALAZINE (APRESOLINE) 50 MG tablet 2018-12-04 14:11:16 Yes 50mg Q.[id number] Take 50 mg by mouth 3 (three) times daily. [facility] insulin aspart (NOVOLOG FLEXPEN U-100 INSULIN SUBQ) 12-04 14:11:16 Yes 38U Inject 38 Units subcutaneously 3 (three) times daily with meals. [facility] acetaminophen-codeine (TYLENOL #3) 300-30 mg per tablet 2018-12-04 14:08:45 Yes 1{tbl} Take 1 tablet by mouth ev [place] 6 (six) hours as needed for Pain. [facility] valsartan (DIOVAN) 320 MG tablet 2018-12-04 14:08:12 Yes 320mg QD Take 320 mg by mouth daily . [facility] traZODone (DESYREL) 150 MG tablet 2018-12-04 14:08:12 Yes 150mg QD Take 150 mg by mouth nightly. [facility] hydroCHLOROthiazide (MICROZIDE) 12.5 mg capsule 2018-12-04 14:06 :20 Yes 12.5mg QD Take 12.5 mg by mouth daily . [facility] psyllium husk (KONSYL) 6 gram PwPk packet 2018-02-04 11:24:38 Yes Take by mouth. [facility] torsemide (DEMADEX) 20 MG tablet 2018-01-29 00:00:00 Yes 20mg QD Take 20 mg by mouth daily . [facility] DULoxetine (CYMBALTA) 60 MG capsule 2018-01-27 00:00:00 Yes 60mg Q.5D Take 60 mg by mouth 2 (two) times daily . [facility] aspirin 81 MG EC tablet 2018-01-27 00:00:00 Yes 81mg QD Take 81 mg by mouth daily . [facility] atorvastatin (LIPITOR) 40 MG tablet 2018-01-27 00:00:00 Yes 40mg QD Take 40 mg by mouth daily . [facility] omeprazole (PRILOSEC) 20 MG capsule 2018-01-27 00:00:00 Yes 20mg QD Take 20 mg by mouth daily . [facility] metoprolol (LOPRESSOR) 100 MG tablet 2018-01-20 00:00:00 Ye s 100mg Q.5D Take 100 mg by mouth 2 (two) times daily. [facility] cilostazol (PLETAL) 50 MG tablet 2017-11-20 00:00:00 Yes 50mg Q.5D Take 50 mg by mouth 2 (two) times daily. [facility] clopidogrel (PLAVIX) 75 mg tablet 2017-11-20 00:00:00 Yes 75mg QD Take 75 mg by mouth daily. [facility] fluticasone (FLONASE) 50 mcg/actuation nasal spray 2016-07 00:00:00 Yes USE 2 SPRAYS IN EACH NOSTRIL DAILY [facility] polyethylene glycol (GLYCOLAX) 17 gram packet 2015-02-13 00:00:0 0 Yes 17g Take 17 g by mouth daily as needed (Constipation). [facility] Acetaminophen/Codeine Phosphate (Tylenol # 3*) 1 Ea Ta b Acetaminophen/Codeine Phosphate (Tylenol # 3*) 1 Ea Tab Yes 1 Thre e Times A Day [facility] Aspirin (Aspirin Ec) 81 Mg Tablet. Aspirin (Aspirin Ec) 81 Mg Tab let.dr Yes 81 Daily [facility] Atorvastatin Calcium 40 Mg Tablet Atorvastatin Calcium 40 Mg Tablet Yes 40 Bedtime [facility] Baclofen 10 Mg Tablet Baclofen 10 Mg Tablet Yes 10 Twice A Day [facility] Carvedilol 25 Mg Tablet Carvedilol 25 Mg Tablet Yes 25 Twice A Day [facility] Duloxetine Hcl (Cymbalta) 30 Mg Capsule. Duloxetine Hcl (Cymbalta) 30 Mg Capsule. Yes 60 Twice A Day [facility] Famotidine 20 Mg Tab Famotidine 20 Mg Tab Yes 20 Twice A Day [facility] Fluticasone/Salmeterol (Advair Hfa 115-21 Mcg Inhaler) 12 Gm Hfa.aer.ad Fluticasone/Salmeterol (Advair Hfa 115-21 Mcg Inhaler) 12 Gm Hfa.aer.ad Yes [facility] Hydralazine Hcl 25 Mg Tab Hydralazine Hcl 25 Mg Tab Yes 50 Three Times A Day [facility] Insulin Aspart (Novolog) 100 Units/1 Ml Inj Insulin As part (Novolog) 100 Units/1 Ml Inj Yes [facility] Ipratropium/Albuterol Sulfate (Combivent Respimat Inha l [place]) 4 Gm Aer.w.adap Ipratropium/Albuterol Sulfate (Combivent Respimat Inhal [place]) 4 Gm Aer.w.adap Yes 4 [facility] Omeprazole 40 Mg Capsule. Omeprazole 40 Mg Capsule. Yes 20 Daily@0600 [facility] Pioglitazone Hcl 45 Mg Tablet Pioglitazone Hcl 45 Mg Tablet Yes 15 Daily [facility] Pregabalin (Lyrica) 75 Mg Cap Pregabalin (Lyrica) 75 Mg Cap Yes 200 Three Times A Day [facility] Ropinirole Hcl 1 Mg Tablet Ropinirole Hcl 1 Mg Tablet Yes 1 Daily [facility] Temazepam 15 Mg Capsule Temazepam 15 Mg Capsule Yes 7. 5 [facility] Torsemide 20 Mg Tablet Torsemide 20 Mg Tablet Yes 20 Daily [facility] Trazodone Hcl 150 Mg Tablet Trazodone Hcl 150 Mg Tablet Yes 150 Daily [facility] Valsartan (Diovan) 160 Mg Tab Valsartan (Diovan) 160 Mg Tab Yes 320 Daily [facility] Vitamin B Complex & Vit C No.3 (B Complex With Vitamin C) 1 Each Capsule Vitamin B Complex & Vit C No.3 (B Complex With Vitamin C) 1 Each Capsule Yes [facility] Omeprazole 20 Mg Capsule., 20 Mg Oral Omeprazole 20 Mg Neil foley., 20 Mg Oral 2019-04-01 00:00:00 No 20 Daily [facility] Acetaminophen With Codeine (Tylenol With Codeine #3 Tablet) 1 Each Tablet, 300 Mg Oral Acetaminophen With Codeine (Tylenol With Codeine #3 Tablet) 1 Each Tablet, 300 Mg Oral 2019-03-24 00:00:00 No 300 Every 4 Hours as needed for Pain [facility] Acetaminophen With Codeine (Tylenol With Codeine #3 Tablet) 1 Each Tablet, 300 Mg Oral Acetaminophen With Codeine (Tylenol With Codeine #3 Tablet) 1 Each Tablet, 300 Mg Oral 2019-03-24 00:00:00 No 300 Every 6 Hours as needed for Mild Pain (1-3) Or Fever>100.8 [facility] Aspirin 81 Mg Tab.chew, 81 Mg Oral Aspirin 81 Mg Tab.chew, 81 Mg Oral 2019-03-24 00:00:00 No 81 Daily [facility] Clopidogrel Bisulfate (Plavix) 75 Mg Tablet, 75 Mg Ora l Clopidogrel Bisulfate (Plavix) 75 Mg Tablet, 75 Mg Oral 2019-03-24 00:00:00 No 75 Daily [facility] Gabapentin 400 Mg Capsule, 750 Mg Oral Gabapentin 400 Mg Capsule , 750 Mg Oral 2019-03-24 00:00:00 No 750 Twice A Day [facility] Hydralazine Hcl 25 Mg Tab, 50 Mg Oral Hydralazine Hcl 25 Mg Tab, 50 Mg Oral 2019-03-24 00:00:00 No 50 Three Times A Day [facility] Insulin Aspart (Novolog) 100 Unit/1 Ml Cartridge, 35 I nsulin Aspart (Novolog) 100 Unit/1 Ml Cartridge, 2019-03-24 00:00:00 No 35 [facility] Insulin Npl/Insulin Lispro (Humalog Mix 50-50 Vial) 10 0 Unit/1 Ml Vial, 35 Insulin Npl/Insulin Lispro (Humalog Mix 50-50 Vial) 100 Unit/1 Ml Vial, 2019-03-24 00:00:00 No 35 Three Times A Day [facility] Lisinopril 10 Mg Tablet, 20 Mg Oral Lisinopril 10 Mg Tablet, 20 Mg Oral 2019-03-24 00:00:00 No 20 Twice A Day [facility] Metoprolol Succinate 50 Mg Tab.er.24h, 100 Mg Oral Met oprolol Succinate 50 Mg Tab.er.24h, 100 Mg Oral 2019-03-24 00:00:00 No 100 Twice A Day [facility] Pregabalin (Lyrica) 25 Mg Cap, 25 Mg Oral Pregabalin ( Lyrica) 25 Mg Cap, 25 Mg Oral 2019-03-24 00:00:00 No 25 Daily [facility] Simvastatin 10 Mg Tablet, 10 Mg Oral Simvastatin 10 Mg Tablet, 1 0 Mg Oral 2019-03-24 00:00:00 No 10 Today At 9:00PM [facility] Lisinopril 10 Mg Tablet, 10 Mg Oral Lisinopril 10 Mg Tablet, 10 Mg Oral 2017-08-31 00:00:00 No 10 Daily [facility] Vital Signs Vital Name Observation Time Observation Value Comments Source Systolic blood pressure 2020-01-10 16:50:00 138 mm[Hg] [facility] Diastolic blood pressure 2020-01-10 16:50:00 76 mm[Hg] [facility] Heart rate 2020-01-10 16:50:00 81 /min [facility] Body temperature 2020-01-10 16:50:00 36.72 Gregoria [facility] Respiratory rate 2020-01-10 16:50:00 18 /min [facility] Body height 2020-01-10 16:50:00 165.1 cm [facility] Body weight Measured 2020-01-10 16:50:00 77.111 kg [facility] BMI 2020-01-10 16:50:00 28.29 kg/m2 [facility] Oxygen saturation in Arterial blood by Pulse oximetry 01-09 16:50:00 100 /min [facility] Procedures Procedure Date / Time Performed Performing Clinician [facility] e Computed tomography of chest with contrast 2019-08-02 00:00:00 KATARZYNA SANDOVAL [facility] EXCISION OF R FOOT SUBCU/FASCIA, OPEN APPROACH 2019-06-23 00:00: 00 REHANA FERNANDEZ [facility] DILATION OF RIGHT ANTERIOR TIBIAL ARTERY, PERC APPROACH 2019 00:00:00 ZHANNA ANAND [facility] DILATION OF RIGHT PERONEAL ARTERY, PERCUTANEOUS APPROACH 00:00:00 ZHANNA ANAND [facility] EXTIRPATION OF MATTER FROM R ANT TIB ART, PERC APPROACH 2019 00:00:00 ZHANNA ANAND [facility] EXTIRPATION OF MATTER FROM R PERONEAL ART, PERC APPROACH 202 00:00:00 ZHANNA ANAND [facility] FLUOROSCOPY OF AORTA, BI LE ART USING L OSM CONTRAST 2019-05 00:00:00 ZHANNA ANAND [facility] EXCISION OF LOWER ESOPHAGUS, ENDO, DIAGN 2019-06-17 00:00:00 JACKSON CHANI OZIEL [facility] EXCISION OF STOMACH, PYLORUS, ENDO, DIAGN 2019-06-17 00:00:00 DIOGO GALDAMEZ OZIEL [facility] Ultrasound, renal 2019-06-15 00:00:00 SANDAR ROONEY [facility] DETACHMENT AT RIGHT 4TH TOE, COMPLETE, OPEN APPROACH 2019-05 00:00:00 REBECCA [facility] EXCISION OF R FOOT SUBCU/FASCIA, OPEN APPROACH 2019-06-14 00:00: 00 REBECCA [facility] INSERTION OF INFUSION DEV INTO SUP VENA CAVA, PERC APPROACH 2019-06-14 00:00:00 ITZEL KAREN [facility] MRI lower extremity w/o dye 2019-06-13 00:00:00 LC HUITRON [facility] TRANSFUSE NONAUT RED BLOOD CELLS IN PERIPH VEIN, PERC 06-13 00:00:00 AMINAH ROBBINS [facility] CT of abdomen and pelvis without contrast 2019-06-11 00:00:00 ALEXIS POWELL [facility] US Abdomen limited 2019-06-09 00:00:00 NO AL [facility] X-ray of chest, single view 2019-06-08 00:00:00 MADI DUKE [facility] EXCISION OF DUODENUM, ENDO, DIAGN 2019-03-30 00:00:00 HARDY FARMER [facility] EXCISION OF STOMACH, ENDO, DIAGN 2019-03-30 00:00:00 PATSYDOMENICO Campbell [facility] INSERTION OF INFUSION DEV INTO SUP VENA CAVA, PERC APPROACH 2019-03-29 00:00:00 ITZEL [facility] ULTRASONOGRAPHY OF SUPERIOR VENA CAVA, GUIDANCE 2019-03-29 0 0:00:00 ITZEL [facility] CT of abdomen and pelvis without contrast 2019-03-27 00:00[facility] and pelvis [facility] contrast 2019-03-24 00:00:00 DENZEL TOVAR [facility] Encounters Start Date/Time End Date/Time Encounter Type Admission Type [facility] Care Department Encounter ID Source 2019-08-02 17:30:00 2019-08-06 19:40:00 Discharged Inpatient 1 DEIRDRE YIN [facility] [id number] [facility] 2019-06-08 20:27:00 2019-06-26 22:01:00 Discharged Inpatient 1 [facility] [id number] [facility] 2019-03-25 13:10:00 2019-04-01 12:32:00 Discharged Inpatient 1 ITZEL [facility] [id number] [facility] 2018-12-01 18:06:00 2018-12-01 20:47:00 Departed Emergency Room 1 EVANGELINA BAIRD [facility] [id number] [facility] 2018-08-16 19:58:00 2018-08-18 15:04:00 Discharged Inpatient (obs) 1 ITZEL [facility] [id number] [facility] 2018-08-10 16:44:00 2018-08-10 17:54:00 Departed Emergency Room [facility] [id number] [facility] 2017-08-19 19:30:00 2017-08-31 15:38:00 Discharged Inpatient ER AMINAH ROBBINS [facility] [id number] [facility] Results Test Description Test Time Test Comments Results Result Comments Source Coronavirus (PCR) 2019-08-06 17:50:00 Test Item Coronavirus (PCR) (test code = Coronavirus (PCR)) NOT DETECTED NOTD ETECTED Testing was performed using the sunny (R) SARS-CoV-2 test. This test was develop ed and its performance characteristics determined by [employer]. This test has not been FDA cleared [...] is terminated or revoked sooner.Test performed at [address] [address] [place], [place] [address]CHES SINGLE (PORTABLE)2019-08-06 11:49:00 [facility] [address] [place] [address] Patient Name: ANDREA HOOVER MR #: [id number] : 1960 Age/Sex: 59/F Req #: [id number] Adm Physician: DEIRDRE YIN MD Ordered by: NO AL MD Report #: [id number] Location: [facility] Room/Bed: [place] [address] Procedure: 0320-000 6 DX/CHEST SINGLE (PORTABLE) Exam [...] COPY TO: NO AL MD, ABI Sodium [id number] 05:50:00* Test Item Value Reference Range Interpretation Comments Sodium Level (test code = 2951-2) 138 136-145 [facility] [id number] 05:50:00* Test Item Value Reference Range Interpretation Comments Potassium Level (test code = 2823-3) 3.6 3.5-5.1 [facility]loride [id number] 05:50:00* Test Item Value Reference Range Interpretation Comments Chloride Level (test code = 2075-0) 99 98-107 [facility]aCarbon Dioxide [id number] 05:50:00* Test Item Value Reference Range Interpretation Comments Carbon Dioxide Level (test code = 2028-9) 29 22-29 [facility]ion [id number] 05:50:00* Test Item Value Reference Range Interpretation Comments Anion Gap (test code = 85965-1) 13.6 8-16 [facility] Urea [id number] 05:50:00* Test Item Value Reference Range Interpretation Comments Blood Urea Nitrogen (test code = 3094-0) 29 7-26 H [facility]Creatinine2020-03-20 05:50:00* Test Item Value Reference Range Interpretation Comments Creatinine (test code = 2160-0) 1.51 0.57-1.11 H [facility]UN/Creatinine [id number] 05:50:00* Test Item Value Reference Range Interpretation Comments BUN/Creatinine Ratio (test code = 3097-3) 19 6-25 [facility] Glomerular Filtration Rate 2019-08-06 05:50:00* Test Item Value Reference Range Interpretation Comments Estimat Glomerular Filtration Rate (test code = 711910445) 43 >60 L Ranges were taken from the National Kidney Disease Education Program and the [facility] Kidney Foundation literature.Reference ranges:60 or greater: Cbjynm63-83 ( for 3 consecutive months): Chronic kidney disease 15 or less: Kidney failureMethodist Hospital AtascosaGlucose [id number] 05:50:00* Test Item Value Reference Range Interpretation Comments Glucose Level (test code = MOW6917) 210 74-118 H [facility]aCalcium [id number] 05:50:00* Test Item Value Reference Range Interpretation Comments Calcium Level (test code = 63242-9) 8.6 8.4-10.2 [facility] Blood [id number] 05:29:00* Test Item Value Reference Range Interpretation Comments White Blood Count (test code = 6690-2) 10.57 4.8-10.8 [facility] Blood [id number] 05:29:00* Test Item Value Reference Range Interpretation Comments Red Blood Count (test code = 789-8) 3.97 3.6-5.1 [facility]emoglobin2020-03-20 05:29:00* Test Item Value Reference Range Interpretation Comments Hemoglobin (test code = 87372-0) 10.8 12.0-16.0 L [facility]Hematocrit2020-03-20 05:29:00* Test Item Value Reference Range Interpretation Comments Hematocrit (test code = 4544-3) 33.1 34.2-44.1 L [facility]aMean Corpuscular [id number] 05:29:00* Test Item Value Reference Range Interpretation Comments Mean Corpuscular Volume (test code = 787-2) 83.4 81-99 [facility]aMean Corpuscular [id number] 05:29:00* Test Item Value Reference Range Interpretation Comments Mean Corpuscular Hemoglobin (test code = 785-6) 27.2 28-32 L [facility]aMean Corpuscular Hemoglobin Concent 2019-08-06 05:29:00* Test Item Value Reference Range Interpretation Comments Mean Corpuscular Hemoglobin Concent (test code = 786-4) 32.6 31-35 [facility]aRed Cell Distribution [id number] 05:29:00* Test Item Value Reference Range Interpretation Comments Red Cell Distribution Width (test code = 56803-6) 16.5 11.7 -14.4 H [facility]aPlatelet [id number] 05:29:00* Test Item Value Reference Range Interpretation Comments Platelet Count (test code = 777-3) 486 140-360 H [facility]aNeutrophils (%) (Auto)2019-08-06 05:29:00 * Test Item Value Reference Range Interpretation Comments Neutrophils (%) (Auto) (test code = 64245-5) 54.8 38.7-80.0 [facility]aLymphocytes (%) (Auto)2019-08-06 05:29:00 * Test Item Value Reference Range Interpretation Comments Lymphocytes (%) (Auto) (test code = 736-9) 31.5 18.0-39.1 [facility]ocytes (%) (Auto)2019-08-06 05:29:00* Test Item Value Reference Range Interpretation Comments Monocytes (%) (Auto) (test code = 5905-5) 10.2 4.4-11.3 [facility]osinophils (%) (Auto)2019-08-06 05:29:00 * Test Item Value Reference Range Interpretation Comments Eosinophils (%) (Auto) (test code = 713-8) 2.4 0.0-6.0 [facility]ophils (%) (Auto)2019-08-06 05:29:00* Test Item Value Reference Range Interpretation Comments Basophils (%) (Auto) (test code = 706-2) 0.7 0.0-1.0 [facility]aIM GRANULOCYTES %2019-08-06 05:29:00* Test Item Value Reference Range Interpretation Comments IM GRANULOCYTES % (test code = IM GRANULOCYTES %) 0.4 0.0- 1.0 [facility]aNeutrophils # (Auto)2019-08-06 05:29:00* Test Item Value Reference Range Interpretation Comments Neutrophils # (Auto) (test code = 751-8) 5.8 2.1-6.9 [facility]aLymphocytes # (Auto)2019-08-06 05:29:00* Test Item Value Reference Range Interpretation Comments Lymphocytes # (Auto) (test code = 23337-8) 3.3 1.0-3.2 [facility]ocytes # (Auto)2019-08-06 05:29:00* Test Item Value Reference Range Interpretation Comments Monocytes # (Auto) (test code = 742-7) 1.1 0.2-0.8 H [facility]aEosinophils # (Auto)2019-08-06 05:29:00* Test Item Value Reference Range Interpretation Comments Eosinophils # (Auto) (test code = 711-2) 0.3 0.0-0.4 [facility]aBasophils # (Auto)2019-08-06 05:29:00* Test Item Value Reference Range Interpretation Comments Basophils # (Auto) (test code = 704-7) 0.1 0.0-0.1 [facility]aAbsolute Immature Granulocyte (auto 2019-08-06 05:29:00* Test Item Value Reference Range Interpretation Comments Absolute Immature Granulocyte (auto (gretchen t code = Absolute Immature Granulocyte (auto) 0.04 0-0.1 [facility]aUrine Legionella Wmqxarz3694-14-25 22:06:00* Test Item Value Reference Range Interpretation Comments Urine Legionella Antigen (test code = 28288-6) Negative Negativ e Presumptive negative for L. pneumophila serogroup 1 antigenin urine, suggesting no recent or current infection.Legionnaires' disease cannot be ruled out since o therserogroups and species may also cause disease.Performed at: - [facility] [address] [place], [place] [id number] Director: Nikky Calle MD, Phone: [phone] [facility] HospitalBlood [facility] 2019-08-05 16:05:00* Test Item Value Reference Range Interpretation Comments Blood Culture (test code = 17919130) NO GROWTH AFTER 72 HOURS [facility] Hospital[facility]INGLE (PORT[facility])2019-08-05 11:19:00 [place] [address] Patient Name: ANDREA HOOVER MR #: [id number] : 1960 Age/Sex: 59/F Req #: [id number] Adm Physician: DEIRDRE YIN MD Ordered by: NO AL MD Report #: [id number] Location: [facility] Room/Bed: [place] [address] Procedure: 0319-000 2 DX/CHEST SINGLE (PORTABLE) Exam Date: Exam Time: REPORT STATUS: Signed EXAMINATI ON: CHEST SINGLE (PORTABLE) INDICATION: Pneumonia COMPARISON: [facility] radiograph 08/03/2019 FINDINGS: LINES/TUBES:None LUNGS:The lungs are [...] on 08/05/191120 COPY TO: NO MILES MD, [facility] C-Reactive Ycdoawv7594-79-24 11:18:00* Test Item Value Reference Range Interpretation Comments C-Reactive Protein (test code = 1988-5) 188 0-10 H Performed at: - [facility] [id number] Director: Manjeet Pritchard MD, Phone: [phone] Hospital AtascosaPhosphorus Grmwa2384-40-54 09:10:00* Test Item Value Reference Range Interpretation Comments Phosphorus Level (test code = ENQ5348) 4.2 2.3-4.7 [facility]aMagnesium Rhwyv1692-84-11 09:10:00* Test Item Value Reference Range Interpretation Comments Magnesium Level (test code = 63318-0) 1.8 1.3-2.1 [facility]aBedside Ljtbtvr1921-21-26 07:00:00* Test Item Value Reference Range Interpretation Comments Bedside Glucose (test code = 96966-5) 284 70-120 H Meter ID: [id number] Hospital AtascosaCHEST SINGLE (PORTABLE)2019-08-03 09:11:00 [place] [address] Patient Name: ANDREA HOOVER MR #: [id number] : 1960 Age/Sex: 59/F Req #: [id number] Adm Physician: DEIRDRE YIN MD Ordered by: NO AL MD Report #: [id number] Location: ICU Room/Bed: ICU [facility] Procedure: 0317-000 4 DX/CHEST SINGLE (PORTABLE) Exam [...] NO AL MD, AB IM Erythrocyte Sedimentation Jwwl2073-93-47 05:55:00* Test Item Value Reference Range Interpretation Comments Erythrocyte Sedimentation Rate (test code = 4537-7) 99 0- 20 H [facility]aLactic Acid Uhbfd5304-92-55 05:50:00* Test Item Value Reference Range Interpretation Comments Lactic Acid Level (test code = Lactic Acid Level) 0.8 0.5- 2.0 [facility]aArterial Blood dQ6491-50-62 17:59:00* Test Item Value Reference Range Interpretation Comments Arterial Blood pH (test code = 2744-1) 7.40 7.31-7.41 [facility]aArterial Blood Partial Pressure CO2 2019-08-02 17:59:00* Test Item Value Reference Range Interpretation Comments Arterial Blood Partial Pressure CO2 (test code = 2019-8) 34 41-51 L [facility]aArterthe [facility] Blood TOZ53085-06-67 17:59:00* Test Item Value Reference Range Interpretation Comments Arterial Blood HCO3 (test code = 1960-4) 21 23-28 L [facility] At[facility]cosaArterial Blood Base Erwtos1976-85-33 17:59:00* Test Item Value Reference Range Interpretation Comments Arterial Blood Base Excess (test code = 1925-7) -4.0 -2-3 L [facility]aFiO22020-03-16 17:59:00* Test Item Value Reference Range Interpretation Comments FiO2 (test code = FiO2) 50 12/6. 14,50%[facility]aCT CHEST K6188-56-94 17:22:00 [facility] [address] [place] [address] Patient Name: ANDREA HOOVER MR #: [id number] : 1959 Age/Sex: 59/F Req #: [id number] Adm Physician: DEIRDRE YIN MD Ordered by: KATARZYNA MOSQUERA DO Report #: [id number] Location: [facility] Room/Bed: [place] [address] Procedure: CT/CT CHEST W Exam Date: 08/02/19 [...] 08/02/191730 COPY TO: KATARZYNA MOSQUERA DO Total Atujrjwts5326-24-39 14:56:00* Test Item Value Reference Range Interpretation Comments Total Bilirubin (test code = 1975-) 0.6 0.2-1.2 [facility]aAspartate Amino Transf (AST/SGOT) 2019-08-02 14:56:00* Test Item Value Reference Range Interpretation Comments Aspartate Amino Transf (AST/SGOT) (test code = Aspartate Amino Transf (AST/SGOT)) 15 5-34 [facility]aAlanine Aminotransferase (ALT/SGPT) 2019-08-02 14:56:00* Test Item Value Reference Range Interpretation Comments Alanine Aminotransferase (ALT/SGPT) (test code = 1742-6) 25 0-55 [facility]aTotal Muixypf2024-99-50 14:56:00* Test Item Value Reference Range Interpretation Comments Total Protein (test code = 2885-2) 7.3 6.5-8.1 [facility]aAlbumin2020-03-16 14:56:00* Test Item Value Reference Range Interpretation Comments Albumin (test code = 1751-7) 3.1 3.5-5.0 L [facility]aGlobulin2020-03-16 14:56:00* Test Item Value Reference Range Interpretation Comments Globulin (test code = 66913-0) 4.2 2.3-3.5 H [facility]aAlbumin/Globulin Xqrih5649-09-65 14:56:00 * Test Item Value Reference Range Interpretation Comments Albumin/Globulin Ratio (test code = 1759-0) 0.7 0.8-2.0 L [facility]aAlkaline Iflteukmadq7068-77-47 14:56:00* Test Item Value Reference Range Interpretation Comments Alkaline Phosphatase (test code = 6768-6) 140 40-150 [facility]aB-Type Natriuretic Afddgfc8145-55-32 14:56:00* Test Item Value Reference Range Interpretation Comments B-Type Natriuretic Peptide (test code = 06235-9) 272.4 0-100 H [facility]aCreatine Tptsic7744-29-74 14:56:00* Test Item Value Reference Range Interpretation Comments Creatine Kinase (test code = 2157-6) 97 29-168 [facility]aCreatine Kinase DH6871-24-64 14:56:00* Test Item Value Reference Range Interpretation Comments Creatine Kinase MB (test code = 99200-2) 1.80 0-5.0 [facility]aTroponin P1096-88-68 14:56:00* Test Item Value Reference Range Interpretation Comments Troponin I (test code = LUF2625) 0.018 0-0.300 [facility]aInfluenza Virus Types A,B Antigen 2019-08-02 14:38:00* Test Item Value Reference Range Interpretation Comments Influenza Virus Types A,B Antigen (test code = 64768-6) NEGATIVE NEGATIVE [facility]aCHES SINGLE (PORTABLE)2019-08-02 14:03:00 [place] [address] Patient Name: ANDREA HOOVER MR #: [id number] : 1960 Age/Sex: 59/F Req #: [id number] Adm Physician: Ordered by: KATARZYNA MOSQUERA DO Report #: [id number] Location: ER Room/Bed: Procedure: 0316-003 9 DX/CHEST [...] 1406 COPY TO: KATARZYNA MOSQUERA DO Bedside Tymmxql6557-76-43 19:19:00* Test Item Value Reference Range Interpretation Comments Bedside Glucose (test code = 28858-1) 200 70-120 H Meter ID: [id number] Scott & White Medical Center – Lake PointeHemoglobin2020-02-08 16:45:00* Test Item Value Reference Range Interpretation Comments Hemoglobin (test code = 00916-9) 7.9 12.0-16.0 L [facility]aHematocrit2020-02-08 16:45:00* Test Item Value Reference Range Interpretation Comments Hematocrit (test code = 4544-3) 24.8 34.2-44.1 L [facility]odium Pxfrw0619-07-79 06:19:00* Test Item Value Reference Range Interpretation Comments Sodium Level (test code = 2951-2) 136 136-145 [facility]aPotassium Fudvp3307-88-71 06:19:00* Test Item Value Reference Range Interpretation Comments Potassium Level (test code = 2823-3) 4.2 3.5-5.1 [facility]aChloride Xxubi2903-85-58 06:19:00* Test Item Value Reference Range Interpretation Comments Chloride Level (test code = 2075-0) 102 98-107 [facility]aCarbon Dioxide Qmpki2433-46-13 06:19:00* Test Item Value Reference Range Interpretation Comments Carbon Dioxide Level (test code = 2028-9) 24 22-29 [facility]aAnion Buh6697-64-37 06:19:00* Test Item Value Reference Range Interpretation Comments Anion Gap (test code = 55917-7) 14.2 8-16 [facility]aBlood Urea Ffrjawuh3856-18-85 06:19:00* Test Item Value Reference Range Interpretation Comments Blood Urea Nitrogen (test code = 3094-0) 13 7-26 [facility]aCreatinine2020-02-07 06:19:00* Test Item Value Reference Range Interpretation Comments Creatinine (test code = 2160-0) 1.37 0.57-1.11 H [facility]aBUN/Creatinine Layje2297-92-81 06:19:00* Test Item Value Reference Range Interpretation Comments BUN/Creatinine Ratio (test code = 3097-3) 9 6-25 [facility]ascosaEstimat Glomerular Filtration Rate 2019-06-25 06:19:00* Test Item Value Reference Range Interpretation Comments Estimat Glomerular Filtration Rate (test code = 841258211) 48 >60 L Ranges were taken from the National Kidney Disease Education Program and the [facility] Kidney Foundation literature.Reference ranges:60 or greater: Amlwjq96-87 ( for 3 consecutive months): Chronic kidney disease 15 or less: Kidney failureMethodist Hospital AtascosaGlucose Zotic5037-17-91 06:19:00* Test Item Value Reference Range Interpretation Comments Glucose Level (test code = EXB6799) 218 74-118 H [facility]aCalcium Qdsbi6196-49-70 06:19:00* Test Item Value Reference Range Interpretation Comments Calcium Level (test code = 74225-0) 8.1 8.4-10.2 L [facility] At[facility]aWhite Blood Bagsa7672-07-29 05:58:00* Test Item Value Reference Range Interpretation Comments White Blood Count (test code = 6690-2) 13.65 4.8-10.8 H [facility] AtascosaRed Blood Ubjrf1095-35-00 05:58:00* Test Item Value Reference Range Interpretation Comments Red Blood Count (test code = 789-8) 2.65 3.6-5.1 L [facility]cosaMean Corpuscular Ubotto0384-49-01 05:58:00* Test Item Value Reference Range Interpretation Comments Mean Corpuscular Volume (test code = 787-2) 84.9 81-99 [facility]aMean Corpuscular Llsucsmtpv9516-92-01 05:58:00* Test Item Value Reference Range Interpretation Comments Mean Corpuscular Hemoglobin (test code = 785-6) 26.4 28-32 L [facility] AtascosaMean Corpuscular Hemoglobin Concent 2019-06-25 05:58:00* Test Item Value Reference Range Interpretation Comments Mean Corpuscular Hemoglobin Concent (test code = 786-4) 31.1 31-35 [facility] AtascosaRed Cell Distribution Ttrpu4877-43-42 05:58:00* Test Item Value Reference Range Interpretation Comments Red Cell Distribution Width (test code = 55496-5) 16.6 11.7 -14.4 H [facility] AtascosaPlatelet Ckcjo5992-63-06 05:58:00* Test Item Value Reference Range Interpretation Comments Platelet Count (test code = 777-3) 418 140-360 H [facility]aNeutrophils (%) (Auto)2019-06-25 05:58:00 * Test Item Value Reference Range Interpretation Comments Neutrophils (%) (Auto) (test code = 83395-0) 66.4 38.7-80.0 [facility]aLymphocytes (%) (Auto)2019-06-25 05:58:00 * Test Item Value Reference Range Interpretation Comments Lymphocytes (%) (Auto) (test code = 736-9) 18.3 18.0-39.1 [facility]aMonocytes (%) (Auto)2019-06-25 05:58:00* Test Item Value Reference Range Interpretation Comments Monocytes (%) (Auto) (test code = 5905-5) 13.2 4.4-11.3 H [facility]aEosinophils (%) (Auto)2019-06-25 05:58:00 * Test Item Value Reference Range Interpretation Comments Eosinophils (%) (Auto) (test code = 713-8) 1.4 0.0-6.0 [facility]aBasophils (%) (Auto)2019-06-25 05:58:00* Test Item Value Reference Range Interpretation Comments Basophils (%) (Auto) (test code = 706-2) 0.2 0.0-1.0 [facility] At[facility]aIM GRANULOCYTES %2019-06-25 05:58:00* Test Item Value Reference Range Interpretation Comments IM GRANULOCYTES % (test code = IM GRANULOCYTES %) 0.5 0.0- 1.0 [facility]aNeutrophils # (Auto)2019-06-25 05:58:00* Test Item Value Reference Range Interpretation Comments Neutrophils # (Auto) (test code = 751-8) 9.1 2.1-6.9 H [facility]aLymphocytes # (Auto)2019-06-25 05:58:00* Test Item Value Reference Range Interpretation Comments Lymphocytes # (Auto) (test code = 31051-8) 2.5 1.0-3.2 [facility]aMonocytes # (Auto)2019-06-25 05:58:00* Test Item Value Reference Range Interpretation Comments Monocytes # (Auto) (test code = 742-7) 1.8 0.2-0.8 H [facility]aEosinophils # (Auto)2019-06-25 05:58:00* Test Item Value Reference Range Interpretation Comments Eosinophils # (Auto) (test code = 711-2) 0.2 0.0-0.4 [facility]aBasophils # (Auto)2019-06-25 05:58:00* Test Item Value Reference Range Interpretation Comments Basophils # (Auto) (test code = 704-7) 0.0 0.0-0.1 [facility]as[facility]aAbsolute Immature Granulocyte (auto 2019-06-25 05:58:00* Test Item Value Reference Range Interpretation Comments Absolute Immature Granulocyte (auto (gretchen t code = Absolute Immature Granulocyte (auto) 0.07 0-0.1 [facility]aCHEST SINGLE (PORTABLE)2019-06-24 16:57:00 [facility] [address] [place] [address] Patient Name: ANDREA HOOVER MR #: [id number] : 1960 Age/Sex: 59/F Req #: [id number] Adm Physician: AMINAH ROBBINS MD Ordered by: ANNIE SINGLETON BARREL RIB MATTING MACHINE OPERATOR Report #: [id number] Location: MED/SURG2 Room/Bed: [facility] Procedure: [id number] DX/CHEST SINGLE (PORTABLE) Exam Date: 06/24/19 Exam [...] TO: ANNIE SINGLETON NP Differential Total Cells Ismzxjp2371-35-95 08:00:00* Test Item Value Reference Range Interpretation Comments Differential Total Cells Counted (test code = Differen tial Total Cells Counted) 100 [facility]aNeutrophils % (Manual)2019-06-23 08:00:00 * Test Item Value Reference Range Interpretation Comments Neutrophils % (Manual) (test code = 71991-7) 68 40-74 [facility]aLymphocytes % (Manual)2019-06-23 08:00:00 * Test Item Value Reference Range Interpretation Comments Lymphocytes % (Manual) (test code = 737-7) 17 19-48 L [facility] CenterMonocytes % (Manual)2019-06-23 08:00:00* Test Item Value Reference Range Interpretation Comments Monocytes % (Manual) (test code = 744-3) 13 3.4-9.0 H [facility]aEosinophils % (Manual)2019-06-23 08:00:00 * Test Item Value Reference Range Interpretation Comments Eosinophils % (Manual) (test code = 714-6) 2 0-7 [facility] AtascosaPlatelet Hnsvgumv9242-52-03 08:00:00* Test Item Value Reference Range Interpretation Comments Platelet Estimate (test code = 97536-2) ADEQUATE [facility] AtascosaPlatelet Morphology Kyrpgga1936-02-02 08:00:00* Test Item Value Reference Range Interpretation Comments Platelet Morphology Comment (test code = 95565-5) NORMAL [facility] AtascosaRed Cell Morphology Bdwajlg9899-42-67 08:00:00* Test Item Value Reference Range Interpretation Comments Red Cell Morphology Comment (test code = 6742-1) NORMAL [facility]cosaDifferential Total Cells Counted 2019-06-23 08:00:00* Test Item Value Reference Range Interpretation Comments Differential Total Cells Counted (test code = Differkenna tial Total Cells Counted) 100 [facility]aNeutrophils % (Manual)2019-06-23 08:00:00 * Test Item Value Reference Range Interpretation Comments Neutrophils % (Manual) (test code = 03692-0) 68 40-74 [facility]aLymphocytes % (Manual)2019-06-23 08:00:00 * Test Item Value Reference Range Interpretation Comments Lymphocytes % (Manual) (test code = 737-7) 17 19-48 L [facility]aMonocytes % (Manual)2019-06-23 08:00:00* Test Item Value Reference Range Interpretation Comments Monocytes % (Manual) (test code = 744-3) 13 3.4-9.0 H [facility]aEosinophils % (Manual)2019-06-23 08:00:00 * Test Item Value Reference Range Interpretation Comments Eosinophils % (Manual) (test code = 714-6) 2 0-7 [facility] AtascosaPlatelet Whnvhmyj1315-18-42 08:00:00* Test Item Value Reference Range Interpretation Comments Platelet Estimate (test code = 86151-4) ADEQUATE [facility] AtascosaPlatelet Morphology Bnsiorr6165-19-57 08:00:00* Test Item Value Reference Range Interpretation Comments Platelet Morphology Comment (test code = 14381-9) NORMAL [facility] AtascosaRed Cell Morphology Xaipkft9576-33-56 08:00:00* Test Item Value Reference Range Interpretation Comments Red Cell Morphology Comment (test code = 6742-1) NORMAL [facility]aTotal Tdblgilid7180-86-52 06:01:00* Test Item Value Reference Range Interpretation Comments Total Bilirubin (test code = 1975-2) 0.2 0.2-1.2 [facility]cosaAspartate Amino Transf (AST/SGOT) 2019-06-23 06:01:00* Test Item Value Reference Range Interpretation Comments Aspartate Amino Transf (AST/SGOT) (test code = Aspartate Amino Transf (AST/SGOT)) 14 5-34 [facility]aAlanine Aminotransferase (ALT/SGPT) 2019-06-23 06:01:00* Test Item Value Reference Range Interpretation Comments Alanine Aminotransferase (ALT/SGPT) (test code = 1742-6) 15 0-55 [facility]cosaTotal Xfphwxt9249-62-01 06:01:00* Test Item Value Reference Range Interpretation Comments Total Protein (test code = 2885-2) 6.0 6.5-8.1 L [facility]cosaAlbumin2020-02-05 06:01:00* Test Item Value Reference Range Interpretation Comments Albumin (test code = 1751-7) 2.2 3.5-5.0 L [facility]cosaGlobulin2020-02-05 06:01:00* Test Item Value Reference Range Interpretation Comments Globulin (test code = 29731-8) 3.8 2.3-3.5 H [facility]aAlbumin/Globulin Itwgz6206-71-06 06:01:00 * Test Item Value Reference Range Interpretation Comments Albumin/Globulin Ratio (test code = 1759-0) 0.6 0.8-2.0 L [facility] At[facility]cosaAlkaline Gjobigtnmye9040-39-99 06:01:00* Test Item Value Reference Range Interpretation Comments Alkaline Phosphatase (test code = 6768-6) 120 40-150 [facility]aCHEST SINGLE (PORTABLE)2019-06-21 13:16:00 [facility] [address] [place] [address] Patient Name: ANDREA HOOVER MR #: [id number] : 1960 Age/Sex: 59/F Req #: [id number] Adm Physician: AMINAH ROBBINS MD Ordered by: ANNIE SINGLETON BARREL RIB MATTING MACHINE OPERATOR Report #: [id number] Location: [facility]G Room/Bed: [facility] Procedure: [id number] DX/CHEST SINGLE (PORTABLE) Exam Date: 06/21/19 Exam [...] Comments B-Type Natriuretic Peptide (test code = 52670-4) 147.2 0-100 H [facility]GASTRIC CYWJTQLE5667-01-45 19:26:00 [facility] [address] [place] [address] Patient Name: ANDREA HOOVER MR #: [id number] : 1960 Age/Sex: 59/F Req #: [id number] Adm Physician: AMINAH ROBBINS MD Ordered by: OZIEL MCCANN MD Report #: [id number] Location: MED/SURG2 Room/Bed: [facility] Procedure: [id number] NM/GASTRIC EMPTYING Exam Date: 06/17/19 Exam Time: 1440 REPORT STATUS: Signed Solid -phase gastric emptying study Reason for examination: Abdominal pain T he protocol used for this study is based on the Consensus Recommendations for Gastric Scintigraphy by the [place] [employer] and the Society [...] mCi Report: The radiopharmaceutical was added to Hactus Enlive 8 ounces. The patient was able [...] compatible with mild gastroparesis. Signed by: Dr. iMma Pinedo M.D. on 06/17/2019 7:30 PM Dictated By: MIMA PINEDO MD 29 Transcribed By: RUCHI on 06/17/191929 COPY TO: OZIEL MCCANN MD Wound Vpokybm9729-91-95 12:10:00 * Test Item Value Reference Range Interpretation Comments Wound Culture (test code = 6462-6) No Result Data Provided [facility]aWound Ruafrsj3175-08-29 12:10:00* Test Item Value Reference Range Interpretation Comments Wound Culture (test code = 6462-6) No Result Data Provided [facility]cosaUrine Random Total Tuswfgj1167-22-27 11:38:00* Test Item Value Reference Range Interpretation Comments Urine Random Total Protein (test code = 2888-6) 152.4 1-14 H [facility]cosaUrine Bseeflvtkg5497-15-98 11:38:00* Test Item Value Reference Range Interpretation Comments Urine Creatinine (test code = 2161-8) 26.66 47-110 L [facility]cosaUrine Protein/Creatinine Kdveq4449-33-39 11:38:00* Test Item Value Reference Range Interpretation Comments Urine Protein/Creatinine Ratio (test code = 60769-8) 5.00 [facility]aUrine Random Total Wdlyljb6541-25-56 11:38:00* Test Item Value Reference Range Interpretation Comments Urine Random Total Protein (test code = 2888-6) 152.4 1-14 H [facility]cosaUrine Mypuexncnp6777-10-98 11:38:00* Test Item Value Reference Range Interpretation Comments Urine Creatinine (test code = 2161-8) 26.66 47-110 L [facility]cosaUrine Protein/Creatinine Pkkef0878-05-84 11:38:00* Test Item Value Reference Range Interpretation Comments Urine Protein/Creatinine Ratio (test code = 29159-1) 5.00 [facility]aC-Reactive Quylxhp3490-66-05 22:26:00* Test Item Value Reference Range Interpretation Comments C-Reactive Protein (test code = 1988-5) 305 0-10 H Performed at: [facility] Lab[address] [id number] Director: Manjeet Pritchard MD, Phone: [phone] Hospital AtascosaMyelocytes %2019-06-15 18:51:00* Test Item Value Reference Range Interpretation Comments Myelocytes % (test code = 749-2) 2 0-0 H [facility]cosaReactive Bwrrqdzmciq0739-68-44 18:51:00* Test Item Value Reference Range Interpretation Comments Reactive Lymphocytes (test code = 57341-5) 5 [facility]aHypochromasia2020-01-28 18:51:00* Test Item Value Reference Range Interpretation Comments Hypochromasia (test code = 728-6) MODERATE [facility]aMyelocytes %2019-06-15 18:51:00* Test Item Value Reference Range Interpretation Comments Myelocytes % (test code = 749-2) 2 0-0 H [facility] At[facility]cosaReactive Mugulhoijxe6362-41-94 18:51:00* Test Item Value Reference Range Interpretation Comments Reactive Lymphocytes (test code = 99934-1) 5 [facility]aHypochromasia2020-01-28 18:51:00* Test Item Value Reference Range Interpretation Comments Hypochromasia (test code = 728-6) MODERATE [facility] AtascosaUS RENAL RETROPERITONEAL XEAA2125-43-36 17:46:00 [facility] [address] [address] Patient Name: ANDREA HOOVER MR #: [id number] : 1960 Age/Sex: 59/F Req #: [id number] Adm Physician: AMINAH ROBBINS MD Ordered by: NEVIN IGNACIO, SANDRA IGNACIO Report #: [id number] Location: [facility] Room/Bed: [facility] Procedure: [id number] US/US RENAL RETROPERITONEAL COMP Exam Date: 06/15/19 Exam Time: 1705 REPORT STATUS: Si gned EXAM: Renal Ultrasound INDICATION: MEGHANN [id number] COMPARISON: None TECHNIQUE: Transverse and longitudinal [...] Interpretation Comments Direct Bilirubin (test code = 71881-9) 0.2 0.0-0.5 [facility]aAmylase Icnld2482-96-72 16:23:00* Test Item Value Reference Range Interpretation Comments Amylase Level (test code = 1798-8) 36 25-125 [facility]cosaLipase2020-01-28 16:23:00* Test Item Value Reference Range Interpretation Comments Lipase (test code = 3040-3) [facility]Direct Kxujlxzay7961-73-46 16:23:00* Test Item Value Reference Range Interpretation Comments Direct Bilirubin (test code = 53058-1) 0.2 0.0-0.5 [facility]aAmylase Wyqty8864-27-66 16:23:00* Test Item Value Reference Range Interpretation Comments Amylase Level (test code = 1798-8) 36 25-125 [facility]aLipase2020-01-28 16:23:00* Test Item Value Reference Range Interpretation Comments Lipase (test code = 3040-3) [facility]aCHEST XRAY LINE AAPNULLWJ9151-50-72 11:18:00 [facility] [address] [place] [address] Patient Name: ANDREA HOOVER MR #: [id number] : 1960 Age/Sex: 59/F Req #: [id number] Adm Physician: AMINAH ROBBINS MD Ordered by: YOEL HUGGINS MD Report #: [id number] Location: MED/SURG2 Room/Bed: 212-1 Procedure: [id number] D X/CHEST XRAY LINE PLACEMENT Exam Date: [...] 11:19 AM Dictated By: JUAN CRAWFORD MD [facility] Signed By: JUAN CRAWFORD MD on 06/14/19 111 Transcribed By: RUCHI on 05/20 12/05 111 COPY TO: YOEL HUGGINS MD MRI FOOT RIGHT JS2050-82-07 19:18:00 [place] [address] Patient Name: ANDREA HOOVER MR #: [id number] : 1960 Age/Sex: 59/F Req #: [id number] Adm Physician: AMINAH ROBBINS MD Ordered by: ALEXIS HUITRON Report #: [id number] Location: MED/SURG2 Room/Bed: [facility] Procedure: 0126-00 06 MRI/MRI FOOT RIGHT [...] on 06/13/191944 COPY TO: ALEXIS HUITRON Blood Iomnlku0081-36-30 19:03:00* Test Item Value Reference Range Interpretation Comments Blood Culture (test code = 07152358) NO GROWTH AFTER 5 DAYS, FINAL REPORT [facility] SINGLE (PORTABLE)2019-06-13 15:41:00 [facility] [address] [place] [address] Patient Name: ANDREA HOOVER MR #: [id number] : 1960 Age/Sex: 59/F Req #: [id number] Adm Physician: AMINAH ROBBINS MD Ordered by: ANNIE SINGLETON BARREL RIB MATTING MACHINE OPERATOR Report #: [id number] Location: MED/SURG2 Room/Bed: [facility] Procedure: [id number] DX/CHEST SINGLE (PORTABLE) Exam Date: 06/13/19 Exam [...] RUCHI on 1542 COPY TO: ANNIE SINGLETON BARREL RIB MATTING MACHINE OPERATOR FOOT RIGHT MAHEOQVA3632-32-27 10:25:00 [facility] [address] [place] [address] Patient Name: ANDREA HOOVER MR #: [id number] : 1960 Age/Sex: 59/F Req #: [id number] Adm Physician: AMINAH ROBBINS MD Ordered by: REHANA FERNANDEZ DPFady Report #: [id number] Location: MED/SURG2 Room/Bed: [facility] Procedure: [id number] DX/ FOOT RIGHT COMPLETE Exam Date: 06/13/19 [...] COPY TO: REHANA FERNANDEZ DPM Erythrocyte Sedimentation Aivu3308-02-97 09:50:00* Test Item Value Reference Range Interpretation Comments Erythrocyte Sedimentation Rate (test code = 4537-7) 117 0- 20 H [facility] (1&2) Cwdmgdkn1196-10-83 09:50:00* Test Item Value Reference Range Interpretation Comments HIV (1&2) Antibody (test code = 96395-7) NON-REACTIVE NONREACTIVE [facility] P24 Bnknsmr4401-95-69 09:50:00* Test Item Value Reference Range Interpretation Comments HIV P24 Antigen (test code = HIV P24 Antigen) NON-REACTIVE NONREACT GLENIS [facility] (1&2) Aaxplslt2173-24-20 09:50:00* Test Item Value Reference Range Interpretation Comments HIV (1&2) Antibody (test code = 90296-3) NON-REACTIVE NONREACTIVE [facility] P24 Lywolaj4167-24-23 09:50:00* Test Item Value Reference Range Interpretation Comments HIV P24 Antigen (test code = HIV P24 Antigen) NON-REACTIVE NONREACT GLENIS [facility] S[facility])2019-06-12 08:31:00 [place] [address] Patient Name: ANDREA HOOVER MR #: [id number] : 1960 Age/Sex: 59/F Req #: [id number] Adm Physician: AMINAH ROBBINS MD Ordered by: AMINAH ROBBINS MD Report #: [id number] Location: MED/SURG2 Room/Bed: [facility] Procedure: [id number] DX/CHEST SINGLE (PORTABLE) Exam Date: 06/12/19 Exam [...] AM Dictated By: EMMA CINTRON MD, MD [facility] Signed By: EMMA CINTRON MD, MD on 06/12/19832 Transcribed By: RUCHI on 06/12/19832 COPY TO: AMINAH ROBBINS MD CT ABDOMEN/PELVIS WO 2019-06-11 16:09:00 [place] [address] Patient Name: ANDREA HOOVER MR #: [id number] : 1960 Age/Sex: 59/F Req #: [id number] Adm Physician: AMINAH ROBBINS MD Ordered by: ALEXIS HUITRON Report #: [id number] Location: MED/SURG2 Room/Bed: [facility] Procedure: 0124-[address]/CT ABDOMEN/PELVIS WO [...] on 06/11/191622 COPY TO: ALEXIS HUITRON Iron Uuyvr2846-86-99 10:57:00* Test Item Value Reference Range Interpretation Comments Iron Level (test code = 2498-4) 11 50-170 L [facility]Total Iron Binding Mtgvqeko6710-10-88 10:57:00* Test Item Value Reference Range Interpretation Comments Total Iron Binding Capacity (test code = 2500-7) 185 261-4 78 L [facility]aPercent Iron Fixibbizza1311-49-97 10:57:00* Test Item Value Reference Range Interpretation Comments Percent Iron Saturation (test code = 2502-3) 6 15-50 L [facility]aTransferrin2020-01-24 10:57:00* Test Item Value Reference Range Interpretation Comments Transferrin (test code = 3034-6) 132 180-382 L [facility]aIron Qedvn0141-18-10 10:57:00* Test Item Value Reference Range Interpretation Comments Iron Level (test code = 2498-4) 11 50-170 L [facility] Iron Binding Lbhkbpvc5822-52-05 10:57:00* Test Item Value Reference Range Interpretation Comments Total Iron Binding Capacity (test code = 2500-7) 185 261-4 78 L [facility]aPercent Iron Ejhjswxamm4234-36-23 10:57:00* Test Item Value Reference Range Interpretation Comments Percent Iron Saturation (test code = 2502-3) 6 15-50 L [facility]aTransferrin2020-01-24 10:57:00* Test Item Value Reference Range Interpretation Comments Transferrin (test code = 3034-6) 132 180-382 L [facility]aProcalcitonin2020-01-23 22:44:00* Test Item Value Reference Range Interpretation Comments Procalcitonin (test code = 110474865) 0.66 0.00-0.08 H A procalcitonin (PCT) level [...] any concentrations <2 ng/mL are obtained.Performed at: [facility] [address] [id number] Director: Manjeet Pritchard MD, Phone: [phone] Hospital AtascosaProcalcitonin2020-01-23 22:44:00* Test Item Value Reference Range Interpretation Comments Procalcitonin (test code = 976746138) 0.66 0.00-0.08 H A procalcitonin (PCT) level [...] concentrations <2 ng/mL are obtained.Performed at: - [facility] [id number] Director: Manjeet Pritchard MD, Phone: [phone] [facility]2020-01-23 09:12:00* Test Item Value Reference Range Interpretation Comments Ammonia (test code = 67379-2) [facility]2020-01-23 09:12:00* Test Item Value Reference Range Interpretation Comments Ammonia (test code = 62689-9) 52 [facility]aMagnesium Apzqz1791-59-24 09:00:00* Test Item Value Reference Range Interpretation Comments Magnesium Level (test code = 37465-4) 1.7 1.3-2.1 [facility]aCHEST SINGLE ([facility])2019-06-10 08:35:00 [facility] [address] [place] [address] Patient Name: ANDREA HOOVER MR #: [id number] : 1960 Age/Sex: 59/F Req #: [id number] Adm Physician: AMINAH ROBBINS MD Ordered by: NO AL MD Report #: [id number] Location: MED/SURG2 Room/Bed: [facility] Procedure: 0123-000 8 DX/CHEST SINGLE (PORTABLE) [...] Comments Creatine Kinase MB (test code = 86589-6) 1.00 0-5.0 [facility]aTroponin S1389-61-00 20:06:00* Test Item Value Reference Range Interpretation Comments Troponin I (test code = XEY8753) 0.032 0-0.300 [facility]aCreatine Wmlcza8184-80-96 19:59:00* Test Item Value Reference Range Interpretation Comments Creatine Kinase (test code = 2157-6) 101 29-168 [facility]aUS ABDOMEN IFQQKHU8073-98-30 14:33:00 [place] [address] Patient Name: ANDREA HOOVER MR #: [id number] : 1960 Age/Sex: 59/F Req #: [id number] Adm Physician: NO AL MD, TAYA Ordered by: NO AL MD Report #: [id number] Location: MED/SURG2 Room/Bed: [facility] Procedure: [id number] US/US ABDOMEN LIMITED Exam Date: 06/09/19 Exam [...] MD, ABIM CHEST SINGLE (PORTABLE) 2019-06-09 09:04:00 [place] [address] Patient Name: ANDREA HOOVER MR #: [id number] : 1960 Age/Sex: 59/F Req #: [id number] Adm Physician: NO AL MD, ABIM Ordered by: MADI DUKE MD Report #: [id number] Location: MED/SURG2 Room/Bed: 212-1 Procedure: DX/CHEST SINGLE [...] OPY TO: MADI DUKE MD Lactic Acid Eaofz4449-03-39 20:48:00* Test Item Value Reference Range Interpretation Comments Lactic Acid Level (test code = Lactic Acid Level) 0.6 0.5- 2.0 [facility]aUrine UAT3554-57-55 18:25:00* Test Item Value Reference Range Interpretation Comments Urine WBC (test code = 5821-4) 6-10 0-5 H [facility]aU[facility] LAX7665-79-51 18:25:00* Test Item Value Reference Range Interpretation Comments Urine RBC (test code = 38703-2) 6-10 0-5 H [facility] Ckobxqbp2308-14-50 18:25:00* Test Item Value Reference Range Interpretation Comments Urine Bacteria (test code = 76910-3) MANY NONE H [facility]aU[facility] Epithelial Hywhp5604-75-98 18:25:00 * Test Item Value Reference Range Interpretation Comments Urine Epithelial Cells (test code = 29910-0) MODERATE NONE [facility] Amorphous Dkcumjrq6077-18-74 18:25:00* Test Item Value Reference Range Interpretation Comments Urine Amorphous Sediment (test code = 8246-1) MODERATE FEW H [facility]aU[facility] VUI0389-11-96 18:25:00* Test Item Value Reference Range Interpretation Comments Urine WBC (test code = 5821-4) 6-10 0-5 H [facility] EEQ9087-34-02 18:25:00* Test Item Value Reference Range Interpretation Comments Urine RBC (test code = 67251-7) 6-10 0-5 H [facility] Aujrcojk7926-41-32 18:25:00* Test Item Value Reference Range Interpretation Comments Urine Bacteria (test code = 17147-3) MANY NONE H [facility]aU[facility] Epithelial Rohmz8921-80-47 18:25:00 * Test Item Value Reference Range Interpretation Comments Urine Epithelial Cells (test code = 04638-9) MODERATE NONE [facility] Amorphous Jinnkwul1058-15-98 18:25:00* Test Item Value Reference Range Interpretation Comments Urine Amorphous Sediment (test code = 8246-1) MODERATE FEW H [facility]aU[facility] Jaagx4083-17-28 18:18:00* Test Item Value Reference Range Interpretation Comments Urine Color (test code = 5778-6) YELLOW YELLOW [facility] Yccykxb5536-28-99 18:18:00* Test Item Value Reference Range Interpretation Comments Urine Clarity (test code = 48171-5) SL CLOUDY CLEAR [facility] Specific Ydaptsf2220-31-55 18:18:00 * Test Item Value Reference Range Interpretation Comments Urine Specific [place] (test code = 5811-5) 1.025 1.010-1.02 5 [facility] aS9481-23-63 18:18:00* Test Item Value Reference Range Interpretation Comments Urine pH (test code = 14637-7) 6 5-7 [facility] Leukocyte Iemigtfy0852-29-13 18:18:00* Test Item Value Reference Range Interpretation Comments Urine Leukocyte Esterase (test code = 5799-2) NEGATIVE NEGATIVE [facility] Rfvgfmy7882-66-20 18:18:00* Test Item Value Reference Range Interpretation Comments Urine Nitrite (test code = 00376-9) NEGATIVE NEGATIVE [facility]aU[facility] Dryazar4459-12-51 18:18:00* Test Item Value Reference Range Interpretation Comments Urine Protein (test code = 5804-0) 2+ NEGATIVE H [facility] Glucose (UA)2019-06-08 18:18:00* Test Item Value Reference Range Interpretation Comments Urine Glucose (UA) (test code = 2349-9) 2+ NEGATIVE H [facility] Hicylxx7845-42-16 18:18:00* Test Item Value Reference Range Interpretation Comments Urine Ketones (test code = 29418-4) NEGATIVE NEGATIVE [facility] Pxvxhshmojbd1610-99-75 18:18:00* Test Item Value Reference Range Interpretation Comments Urine Urobilinogen (test code = 86689-6) 0.2 0.2-1 [facility] Boggimdrc5919-86-73 18:18:00* Test Item Value Reference Range Interpretation Comments Urine Bilirubin (test code = 1978-6) NEGATIVE NEGATIVE [facility] Jiprg5227-01-75 18:18:00* Test Item Value Reference Range Interpretation Comments Urine Blood (test code = 47764-3) 2+ NEGATIVE H [facility] Luhmf8228-17-14 18:18:00* Test Item Value Reference Range Interpretation Comments Urine Color (test code = 5778-6) YELLOW YELLOW [facility] Jszbzit8271-44-89 18:18:00* Test Item Value Reference Range Interpretation Comments Urine Clarity (test code = 90077-9) SL CLOUDY CLEAR [facility] Specific Ihgttsn9884-88-21 18:18:00 * Test Item Value Reference Range Interpretation Comments Urine Specific [place] (test code = 5811-5) 1.025 1.010-1.02 5 [facility] cB3684-06-81 18:18:00* Test Item Value Reference Range Interpretation Comments Urine pH (test code = 13315-5) 6 5-7 [facility] Leukocyte Zgudsmyo6255-15-97 18:18:00* Test Item Value Reference Range Interpretation Comments Urine Leukocyte Esterase (test code = 5799-2) NEGATIVE NEGATIVE [facility] Huwdnje4618-85-94 18:18:00* Test Item Value Reference Range Interpretation Comments Urine Nitrite (test code = 63887-1) NEGATIVE NEGATIVE [facility] Oiutrma1861-90-82 18:18:00* Test Item Value Reference Range Interpretation Comments Urine Protein (test code = 5804-0) 2+ NEGATIVE H [facility] Glucose (UA)2019-06-08 18:18:00* Test Item Value Reference Range Interpretation Comments Urine Glucose (UA) (test code = 2349-9) 2+ NEGATIVE H [facility]aU[facility] Atdzgzs1045-66-01 18:18:00* Test Item Value Reference Range Interpretation Comments Urine Ketones (test code = 85315-6) NEGATIVE NEGATIVE [facility] Fccdzktpxuph8452-01-48 18:18:00* Test Item Value Reference Range Interpretation Comments Urine Urobilinogen (test code = 96641-3) 0.2 0.2-1 [facility] Fliwyfpdk4380-22-19 18:18:00* Test Item Value Reference Range Interpretation Comments Urine Bilirubin (test code = 1978-6) NEGATIVE NEGATIVE [facility]aU[facility] Duvea3159-25-82 18:18:00* Test Item Value Reference Range Interpretation Comments Urine Blood (test code = 96672-6) 2+ NEGATIVE H [facility]aGroup A Streptococcus Ygcvht2750-34-12 17:04:00* Test Item Value Reference Range Interpretation Comments Group A Streptococcus Screen (test code = 26197-3) NEGATIVE NEG ATIVE [facility]aGroup A Streptococcus Xirfvd4720-49-40 17:04:00* Test Item Value Reference Range Interpretation Comments Group A Streptococcus Screen (test code = 52836-5) NEGATIVE NEG ATIVE [facility]aProthrombin Itmh2490-64-06 16:51:00* Test Item Value Reference Range Interpretation Comments Prothrombin Time (test code = 5902-2) 14.2 11.9-14.5 [facility]aProthromb Time International Ratio 2019-06-08 16:51:00* Test Item Value Reference Range Interpretation Comments Prothromb Time International Ratio (test code = 6301-6) 1.05 Oral Anticoagulant Therapy INR Values:1. Low Intensity Therapy 1.5 - 2.02 . Moderate Intensity Therapy 2.0 - 3.03. High Intensity Therapy(1) 2.5 - 3. 54. High Intensity Therapy(2) 3.0 - 4.05. Panic Value INR > 5.0 [facility]aActivated Partial Thromboplast Time 2019-06-08 16:51:00* Test Item Value Reference Range Interpretation Comments Activated Partial Thromboplast Time (test code = 59857-8) 28.9 23.8-35.5 [facility]aProthrombin Qzty9456-94-03 16:51:00* Test Item Value Reference Range Interpretation Comments Prothrombin Time (test code = 5902-2) 14.2 11.9-14.5 [facility]aProthromb Time International Ratio 2019-06-08 16:51:00* Test Item Value Reference Range Interpretation Comments Prothromb Time International Ratio (test code = 6301-6) 1.05 Oral Anticoagulant Therapy INR Values:1. Low Intensity Therapy 1.5 - 2.02 . Moderate Intensity Therapy 2.0 - 3.03. High Intensity Therapy(1) 2.5 - 3. 54. High Intensity Therapy(2) 3.0 - 4.05. Panic Value INR > 5.0 [facility]aActivated Partial Thromboplast Time 2019-06-08 16:51:00* Test Item Value Reference Range Interpretation Comments Activated Partial Thromboplast Time (test code = 66370-2) 28.9 23.8-35.5 [facility]aInfluenza Virus Types A,B Antigen 2019-06-08 16:41:00* Test Item Value Reference Range Interpretation Comments Influenza Virus Types A,B Antigen (test code = 56669-9) NEGATIVE NEGATIVE [facility] 16:32:00 [facility] [address] [place] [address] Patient Name: ANDREA HOOVER MR #: [id number] : 1960 Age/Sex: 59/F Req #: [id number] Adm Physician: Ordered by: MADI DUKE MD Report #: [id number] Location: ER Room/Bed: Procedure: 8210-3216 D X/CHEST SINGLE (NOT PORTABLE) Exam Date: [...] 1633 COPY TO: MADI DUKE MD Bedside Uyghytn2155-32-97 11:35:00* Test Item Value Reference Range Interpretation Comments Bedside Glucose (test code = 71283-1) 139 70-120 H Meter ID: [id number] [facility] Level 2019-04-01 06:07:00* Test Item Value Reference Range Interpretation Comments Sodium Level (test code = 2951-2) 139 136-145 [facility]aPotassium Vxndw0869-77-67 06:07:00* Test Item Value Reference Range Interpretation Comments Potassium Level (test code = 2823-3) 3.9 3.5-5.1 [facility]aChloride Bfezy3276-22-87 06:07:00* Test Item Value Reference Range Interpretation Comments Chloride Level (test code = 2075-0) 107 98-107 [facility]aCarbon Dioxide Ukzjl7781-57-83 06:07:00* Test Item Value Reference Range Interpretation Comments Carbon Dioxide Level (test code = 2028-9) 25 22-29 [facility]aAnion Iuv2795-19-76 06:07:00* Test Item Value Reference Range Interpretation Comments Anion Gap (test code = 14354-1) 10.9 8-16 [facility]aBlood Urea Diefapar2039-82-68 06:07:00* Test Item Value Reference Range Interpretation Comments Blood Urea Nitrogen (test code = 3094-0) 13 7-26 [facility]aCreatinine2019-11-14 06:07:00* Test Item Value Reference Range Interpretation Comments Creatinine (test code = 2160-0) 1.06 0.57-1.11 [facility]aBUN/Creatinine Qrvpk0440-32-23 06:07:00* Test Item Value Reference Range Interpretation Comments BUN/Creatinine Ratio (test code = 3097-3) 12 6-25 [facility]aEstimat Glomerular Filtration Rate 2019-04-01 06:07:00* Test Item Value Reference Range Interpretation Comments Estimat Glomerular Filtration Rate (test code = 952662240) > 60 >60 Ranges were taken from the National Kidney Disease Education Program and the [facility] literature.Reference ranges:60 or greater: Csilxs75-96 ( for 3 consecutive months): Chronic kidney disease 15 or less: Kidney failureMethodist Hospital AtascosaGlucose Clust4616-47-29 06:07:00* Test Item Value Reference Range Interpretation Comments Glucose Level (test code = FJM9415) 114 74-118 [facility]aCalcium Sjpye6309-28-98 06:07:00* Test Item Value Reference Range Interpretation Comments Calcium Level (test code = 67962-9) 9.0 8.4-10.2 [facility]aWhite Blood Thzys2480-37-51 05:55:00* Test Item Value Reference Range Interpretation Comments White Blood Count (test code = 6690-2) 13.32 4.8-10.8 H [facility]aRed Blood Lfits1932-64-47 05:55:00* Test Item Value Reference Range Interpretation Comments Red Blood Count (test code = 789-8) 2.93 3.6-5.1 L [facility]aHemoglobin2019-11-14 05:55:00* Test Item Value Reference Range Interpretation Comments Hemoglobin (test code = 22035-9) 7.8 12.0-16.0 L [facility]aHematocrit2019-11-14 05:55:00* Test Item Value Reference Range Interpretation Comments Hematocrit (test code = 4544-3) 24.7 34.2-44.1 L [facility]aMean Corpuscular Anekxs4996-97-79 05:55:00* Test Item Value Reference Range Interpretation Comments Mean Corpuscular Volume (test code = 787-2) 84.3 81-99 [facility]aMean Corpuscular Aurgjmeosm6260-00-34 05:55:00* Test Item Value Reference Range Interpretation Comments Mean Corpuscular Hemoglobin (test code = 785-6) 26.6 28-32 L [facility]aMean Corpuscular Hemoglobin Concent 2019-04-01 05:55:00* Test Item Value Reference Range Interpretation Comments Mean Corpuscular Hemoglobin Concent (test code = 786-4) 31.6 31-35 [facility]aRed Cell Distribution Ismvh7724-13-84 05:55:00* Test Item Value Reference Range Interpretation Comments Red Cell Distribution Width (test code = 83085-6) 13.8 11.7 -14.4 [facility] AtascosaPlatelet Erset1966-00-05 05:55:00* Test Item Value Reference Range Interpretation Comments Platelet Count (test code = 777-3) 460 140-360 H [facility]aNeutrophils (%) (Auto)2019-04-01 05:55:00 * Test Item Value Reference Range Interpretation Comments Neutrophils (%) (Auto) (test code = 39427-7) 59.9 38.7-80.0 [facility]aLymphocytes (%) (Auto)2019-04-01 05:55:00 * Test Item Value Reference Range Interpretation Comments Lymphocytes (%) (Auto) (test code = 736-9) 27.6 18.0-39.1 [facility]aMonocytes (%) (Auto)2019-04-01 05:55:00* Test Item Value Reference Range Interpretation Comments Monocytes (%) (Auto) (test code = 5905-5) 8.6 4.4-11.3 [facility]aEosinophils (%) (Auto)2019-04-01 05:55:00 * Test Item Value Reference Range Interpretation Comments Eosinophils (%) (Auto) (test code = 713-8) 1.7 0.0-6.0 [facility]aBasophils (%) (Auto)2019-04-01 05:55:00* Test Item Value Reference Range Interpretation Comments Basophils (%) (Auto) (test code = 706-2) 0.6 0.0-1.0 [facility]aIM GRANULOCYTES %2019-04-01 05:55:00* Test Item Value Reference Range Interpretation Comments IM GRANULOCYTES % (test code = IM GRANULOCYTES %) 1.6 0.0- 1.0 H [facility]aNeutrophils # (Auto)2019-04-01 05:55:00* Test Item Value Reference Range Interpretation Comments Neutrophils # (Auto) (test code = 751-8) 8.0 2.1-6.9 H [facility]aLymphocytes # (Auto)2019-04-01 05:55:00* Test Item Value Reference Range Interpretation Comments Lymphocytes # (Auto) (test code = 33040-5) 3.7 1.0-3.2 H [facility]aMonocytes # (Auto)2019-04-01 05:55:00* Test Item Value Reference Range Interpretation Comments Monocytes # (Auto) (test code = 742-7) 1.1 0.2-0.8 H [facility]aEosinophils # (Auto)2019-04-01 05:55:00* Test Item Value Reference Range Interpretation Comments Eosinophils # (Auto) (test code = 711-2) 0.2 0.0-0.4 [facility]aBasophils # (Auto)2019-04-01 05:55:00* Test Item Value Reference Range Interpretation Comments Basophils # (Auto) (test code = 704-7) 0.1 0.0-0.1 [facility]cosaAbsolute Immature Granulocyte (auto 2019-04-01 05:55:00* Test Item Value Reference Range Interpretation Comments Absolute Immature Granulocyte (auto (gretchen t code = Absolute Immature Granulocyte (auto) 0.21 0-0.1 H [facility]aCHEST SINGLE (PORTABLE)2019-03-29 03:52:00 [place] [address] Patient Name: ANDREA HOOVER MR #: [id number] : 1960 Age/Sex: 59/F Req #: [id number] Adm Physician: AMINHA ROBBINS MD Ordered by: AMINAH ROBBINS MD Report #: [id number] Location: [facility] Room[facility]: [facility] Procedure: [id number] DX/CHEST SINGLE (PORTABLE) Exam Date: 03/29/19 Exam [...] COPY TO: AMINAH ROBBINS MD Stool Occult Ozgmn5527-75-28 17:02:00* Test Item Value Reference Range Interpretation Comments Stool Occult Blood (test code = 2335-8) POSITIVE NEGATIVE [facility] Occult Cnkef3692-29-46 17:02:00* Test Item Value Reference Range Interpretation Comments Stool Occult Blood (test code = 2335-8) POSITIVE NEGATIVE [facility] Yzkhs9328-56-33 17:02:00* Test Item Value Reference Range Interpretation Comments Stool Occult Blood (test code = 2335-8) POSITIVE NEGATIVE [facility] RockVitamin B12 Wvkiq1687-24-11 07:51:00* Test Item Value Reference Range Interpretation Comments Vitamin B12 Level (test code = 88268-6) 263 213816 [facility]12 Dbnhc0799-86-72 07:51:00* Test Item Value Reference Range Interpretation Comments Vitamin B12 Level (test code = 82399-7) 263 213-816 [facility]aVitamin B12 Cofnn5022-28-29 07:51:00* Test Item Value Reference Range Interpretation Comments Vitamin B12 Level (test code = 71417-4) 263 213-421 [facility]aCT ABDOMEN/PELVIS ZV5244-09-57 07:46:00 [facility] [address] [address] Patient Name: ANDREA HOOVER MR #: [id number] : 1959 Age/Sex: 59/F Req #: [id number] Adm Physician: AMINAH ROBBINS MD Ordered by: AMINAH ROBBINS MD Report #: [id number] [facility]: [facility] Room/Bed: [facility] Procedure: [id number] CT/CT ABDOMEN/PELVIS WO Exam Date: 03/27/19 Exam [...] on 03/28/19751 COPY TO: AMINAH ROBBINS MD Ccfpuacq9947-80-49 07:39:00* Test Item Value Reference Range Interpretation Comments Ferritin (test code = 2276-4) 303.13 4.63-204.00 H [facility]aFerritin2019-11-10 07:39:00* Test Item Value Reference Range Interpretation Comments Ferritin (test code = 2276-4) 303.13 4.63-204.00 H [facility]aFerritin2019-11-10 07:39:00* Test Item Value Reference Range Interpretation Comments Ferritin (test code = 2276-4) 303.13 4.63-204.00 H [facility]aIron Dnchl8106-10-77 07:23:00* Test Item Value Reference Range Interpretation Comments Iron Level (test code = 2498-4) 12 50-170 L [facility]aTotal Iron Binding Vqrfsbkl2858-09-44 07:23:00* Test Item Value Reference Range Interpretation Comments Total Iron Binding Capacity (test code = 2500-7) 221 261-4 78 L [facility]aPercent Iron Alpqeqrjrw0374-53-11 07:23:00* Test Item Value Reference Range Interpretation Comments Percent Iron Saturation (test code = 2502-3) 5 15-50 L [facility]aTransferrin2019-11-10 07:23:00* Test Item Value Reference Range Interpretation Comments Transferrin (test code = 3034-6) 158 180-382 L [facility]aTo[facility] Odvaxnuny4691-70-36 06:54:00* Test Item Value Reference Range Interpretation Comments Total Bilirubin (test code = 1975-2) 0.2 0.2-1.2 [facility]aDirect Wyewibbva5090-03-28 06:54:00* Test Item Value Reference Range Interpretation Comments Direct Bilirubin (test code = 88053-3) 0.1 0.0-0.5 [facility]cosaAspartate Amino Transf (AST/SGOT) 2019-03-28 06:54:00* Test Item Value Reference Range Interpretation Comments Aspartate Amino Transf (AST/SGOT) (test code = Aspartate Amino Transf (AST/SGOT)) 13 5-34 [facility]aAlanine Aminotransferase (ALT/SGPT) 2019-03-28 06:54:00* Test Item Value Reference Range Interpretation Comments Alanine Aminotransferase (ALT/SGPT) (test code = 1742-6) 7 0-55 [facility]aTotal Wzcidkw4210-28-71 06:54:00* Test Item Value Reference Range Interpretation Comments Total Protein (test code = 2885-2) 7.0 6.5-8.1 [facility]aAlbumin2019-11-10 06:54:00* Test Item Value Reference Range Interpretation Comments Albumin (test code = 1751-7) 2.4 3.5-5.0 L [facility]cosaAlkaline Bxccjccpspl1265-32-58 06:54:00* Test Item Value Reference Range Interpretation Comments Alkaline Phosphatase (test code = 6768-6) 112 40-150 [facility]aLipase2019-11-10 06:54:00* Test Item Value Reference Range Interpretation Comments Lipase (test code = 3040-3) 18 8-78 [facility]aProthrombin Dkoi7657-05-67 06:52:00* Test Item Value Reference Range Interpretation Comments Prothrombin Time (test code = 5902-2) 15.1 11.9-14.5 H [facility]aProthromb Time International Ratio 2019-03-28 06:52:00* Test Item Value Reference Range Interpretation Comments Prothromb Time International Ratio (test code = 6301-6) 1.13 Oral Anticoagulant Therapy INR Values:1. Low Intensity Therapy 1.5 - 2.02 . Moderate Intensity Therapy 2.0 - 3.03. High Intensity Therapy(1) 2.5 - 3. 54. High Intensity Therapy(2) 3.0 - 4.05. Panic Value INR > 5.0 [facility] AtascosaActivated Partial Thromboplast Time 2019-03-28 06:52:00* Test Item Value Reference Range Interpretation Comments Activated Partial Thromboplast Time (test code = 99064-9) 45.4 23.8-35.5 H [facility] At[facility]cosaPercent Reticulocyte Imyoj2617-73-37 06:37:00* Test Item Value Reference Range Interpretation Comments Percent Reticulocyte Count (test code = 44315-1) 1.1 0.8-2 .2 [facility]aPercent Reticulocyte Cpekv2524-53-52 06:37:00* Test Item Value Reference Range Interpretation Comments Percent Reticulocyte Count (test code = 50796-0) 1.1 0.8-2 .2 [facility]aPercent Reticulocyte Lywsg0082-52-05 06:37:00* Test Item Value Reference Range Interpretation Comments Percent Reticulocyte Count (test code = 04600-4) 1.1 0.8-2 .2 [facility] AtascosaFOOT RIGHT MXBHHUFZ0177-22-59 14:13:00 [facility] [address] [address] Patient Name: ANDREA HOOVER MR #: [id number] : 1959 Age/Sex: 59/F Req #: [id number] Adm Physician: AMINAH ROBBINS MD Ordered by: AMINAH ROBBINS MD Report #: [id number] Location: [facility] Room/Bed: [place] [address] Procedure: [id number] DX/FOOT RIGHT COMPLETE Exam Date: 03/25/19 Exam [...] 2:15 PM Dictated By: PHILL NELSON MD 1411 Transcribed By: RUCHI on 03/25/19 0271 COPY TO: AMINAH SANDRA MD Okpbuvln2225-15-46 06:01:00* Test Item Value Reference Range Interpretation Comments Globulin (test code = 99854-2) 4.3 2.3-3.5 H [facility]aAlbumin/Globulin Tqgpq4080-14-75 06:01:00 * Test Item Value Reference Range Interpretation Comments Albumin/Globulin Ratio (test code = 1759-0) 0.7 0.8-2.0 L [facility]aDifferential Total Cells Counted 2019-03-24 21:08:00* Test Item Value Reference Range Interpretation Comments Differential Total Cells Counted (test code = Differen tial Total Cells Counted) 100 [facility]aNeutrophils % (Manual)2019-03-24 21:08:00 * Test Item Value Reference Range Interpretation Comments Neutrophils % (Manual) (test code = 95951-8) 83 40-74 H [facility]aLymphocytes % (Manual)2019-03-24 21:08:00 * Test Item Value Reference Range Interpretation Comments Lymphocytes % (Manual) (test code = 737-7) 8 19-48 L [facility]aMonocytes % (Manual)2019-03-24 21:08:00* Test Item Value Reference Range Interpretation Comments Monocytes % (Manual) (test code = 744-3) 9 3.4-9.0 [facility] AtascosaPlatelet Nfhwhdhx8154-05-86 21:08:00* Test Item Value Reference Range Interpretation Comments Platelet Estimate (test code = 61421-7) ADEQUATE [facility] AtascosaPlatelet Morphology Zmdesyl7158-10-90 21:08:00* Test Item Value Reference Range Interpretation Comments Platelet Morphology Comment (test code = 09519-8) NORMAL [facility]aHypochromasia2019-11-06 21:08:00* Test Item Value Reference Range Interpretation Comments Hypochromasia (test code = 728-6) SLIGHT [facility] AtascosaRed Cell Morphology Swijsys0496-10-89 21:08:00* Test Item Value Reference Range Interpretation Comments Red Cell Morphology Comment (test code = 6742-1) [facility] ZX1769-09-89 19:57:00 [facility] [address] [address] Patient Name: ANDREA HOOVER MR #: [id number] : 1959 Age/Sex: 59/F Req #: [id number] Adm Physician: Ordered by: DENZEL KAY MD Report #: [id number] Location: ER Room/Bed: Procedure: [id number] CT/CT ABDOMEN/PELVIS WO Exam Date: Exam Time: [...] JEFFREY HOOVER MD Electronic ally Signed By: JEFFREY HOOVER MD on 03/24/192003 Transcribed By: RUCHI huang 03/24/192003 COPY TO: DENZEL KAY MD Urine DIM5669-39-50 18:42:00* Test Item Value Reference Range Interpretation Comments Urine WBC (test code = 5821-4) NONE 0-5 [facility]aUrine HRO2278-97-21 18:42:00* Test Item Value Reference Range Interpretation Comments Urine RBC (test code = 39574-9) NONE 0-5 [facility]aUrine Dhmobgil6020-48-73 18:42:00* Test Item Value Reference Range Interpretation Comments Urine Bacteria (test code = 01698-6) FEW NONE [facility]aUrine Epithelial Dsqln5566-10-68 18:42:00 * Test Item Value Reference Range Interpretation Comments Urine Epithelial Cells (test code = 96888-3) FEW NONE [facility]aInfluenza Virus Types A,B Antigen 2019-03-24 18:39:00* Test Item Value Reference Range Interpretation Comments Influenza Virus Types A,B Antigen (test code = 99159-7) NEGATIVE NEGATIVE [facility]aUrine Jxobf5482-25-87 18:33:00* Test Item Value Reference Range Interpretation Comments Urine Color (test code = 5778-6) YELLOW YELLOW [facility]aUrine Qhtcesy2466-21-03 18:33:00* Test Item Value Reference Range Interpretation Comments Urine Clarity (test code = 64520-4) SL CLOUDY CLEAR [facility]aUrine Specific Lrtyywd4084-81-05 18:33:00 * Test Item Value Reference Range Interpretation Comments Urine Specific [place] (test code = 5811-5) >=1.030 1.010-1.02 5 [facility]aUrine qW7584-30-85 18:33:00* Test Item Value Reference Range Interpretation Comments Urine pH (test code = 33132-8) 6 5-7 [facility]aUrine Leukocyte Psxdmgjo9257-04-63 18:33:00* Test Item Value Reference Range Interpretation Comments Urine Leukocyte Esterase (test code = 60590-5) NEGATIVE NEGATIV E [facility]aUrine Htvqmlu7548-92-20 18:33:00* Test Item Value Reference Range Interpretation Comments Urine Nitrite (test code = 54169-3) NEGATIVE NEGATIVE [facility]aUrine Kilwlsm6192-00-14 18:33:00* Test Item Value Reference Range Interpretation Comments Urine Protein (test code = 77838-4) 3+ NEGATIVE H [facility]aUrine Glucose (UA)2019-03-24 18:33:00* Test Item Value Reference Range Interpretation Comments Urine Glucose (UA) (test code = 60396-0) NEGATIVE NEGATIVE [facility]aUrine Qxorekd5711-65-68 18:33:00* Test Item Value Reference Range Interpretation Comments Urine Ketones (test code = 72281-6) NEGATIVE NEGATIVE [facility]aUrine Nmsppwbudqwq1804-75-80 18:33:00* Test Item Value Reference Range Interpretation Comments Urine Urobilinogen (test code = 86678-5) 0.2 0.2-1 [facility]aUrine Ulxmqemgh5894-55-34 18:33:00* Test Item Value Reference Range Interpretation Comments Urine Bilirubin (test code = 1977-8) NEGATIVE NEGATIVE [facility] Lmcnm6424-91-82 18:33:00* Test Item Value Reference Range Interpretation Comments Urine Blood (test code = 40208-5) NEGATIVE NEGATIVE [facility]aGroup A Streptococcus Qgsplc2489-00-00 18:29:00* Test Item Value Reference Range Interpretation Comments Group A Streptococcus Screen (test code = 17941-9) NEGATIVE NEG ATIVE [facility]aUrine Mmnr5203-26-67 18:28:00* Test Item Value Reference Range Interpretation Comments Urine Test (test code = 2106-3) NEGATIVE NEGATIVE [facility]aUrine Fqlb4354-12-71 18:28:00* Test Item Value Reference Range Interpretation Comments Urine Test (test code = 2106-3) NEGATIVE NEGATIVE [facility] Domr2942-43-37 18:28:00* Test Item Value Reference Range Interpretation Comments Urine Test (test code = 2106-3) NEGATIVE NEGATIVE [facility]aPOCT-GLUCOSE YWXME2194-54-74 13:57:00* Test Item Value Reference Range Interpretation Comments POC-GLUCOSE METER (BEAKER) (test code = 1538) 361 mg/dL 70-110 H TESTED AT [facility] [address] [facility] [address] POCT-GLUCOSE NXMMP3106-35-58 09:05:00* Test Item Value Reference Range Interpretation Comments POC-GLUCOSE METER (BEAKER) (test code = 1538) 324 mg/dL 70-110 H TESTED AT [facility] [address] [facility] [address] BASIC METABOLIC IKJGO9098-03-12 08:11:00* Test Item Value Reference Range Interpretation [...] DIALYSIS PATIENTS. CBC W/PLT COUNT & AUTO SWVJKGUVARBM5727-79-27 06:19:00* Test Item Value Reference Range Interpretation [...] code = 2801) 0 % 0-1 POCT-GLUCOSE TWKZM8737-85-69 21:47:00* Test Item Value Reference Range Interpretation Comments POC-GLUCOSE METER (BEAKER) (test code = 1538) 328 mg/dL 70-110 H TESTED AT [facility] [address] [facility] [address] RAD, ABDOMEN, 2 QTQET6422-24-04 20:38:00Reason for exam:->vomiting , diarrhea FINAL REPORT [...] Verified Date /Time: 12/04/2018 20:38:57 Reading Location: [facility] C013W Consult Reading Room U/S, ABDOMINAL, ARABLLVY3087-61-64 16:53:00Reason for exam:->vomiting diarrheaFINAL REPORT Ultrasound of [...] [place] Verified Date/Time: 12/04/2018 16:53:00 Reading Location: [facility] 10th Sdr Radiolo gy Reading Room Electronically signed by: JENNA SCHROEDER M.D. on 12/04 04:53 PM POCT-GLUCOSE STBLX3154-48-25 12:21:00* Test Item Value Reference Range Interpretation Comments POC-GLUCOSE METER (BEAKER) (test code = 1538) 349 mg/dL 70-110 H TESTED AT [address] [address] POCT-GLUCOSE MWSNJ8878-51-76 08:05:00* Test Item Value Reference Range Interpretation Comments POC-GLUCOSE METER (BEAKER) (test code = 1538) 352 mg/dL 70-110 H TESTED AT [facility]-[address] [address] POCT-GLUCOSE RNFQP7100-51-64 03:08:00* Test Item Value Reference Range Interpretation Comments POC-GLUCOSE METER (BEAKER) (test code = 1538) 389 mg/dL 70-110 H TESTED AT [facility] [address] POCT-GLUCOSE YREJY8230-94-90 23:55:00* Test Item Value Reference Range Interpretation Comments POC-GLUCOSE METER (BEAKER) (test code = 1538) 357 mg/dL 70-110 H TESTED AT [address] [address] URINALYSIS W/ VVRSKWZQXNI3439-08-96 22:31:00* Test Item Value Reference Range Interpretation [...] /HPF SOURCE(BEAKER) (test code = 2795) POCT-GLUCOSE HETVR6614-56-34 21:34:00* Test Item Value Reference Range Interpretation Comments POC-GLUCOSE METER (BEAKER) (test code = 1538) 394 mg/dL 70-110 H TESTED AT [facility]-[address] [address] KETONE, ZQPGF9070-54-79 20:58:00* Test Item Value Reference Range Interpretation Comments KETONES, BLOOD (BEAKER) (test code = 1103) 0.1 mmol/L <0.4 POCT-GLUCOSE [id number] 20:48:00* Test Item Value Reference Range Interpretation Comments POC-GLUCOSE METER (BEAKER) (test code = 1538) 410 mg/dL 70-110 HH TESTED AT [place] [address]25 BASIC METABOLIC [id number] 20:06:00* Test Item Value Reference Range Interpretation [...] NOT APPLICABLE FOR DIALYSIS PATIENTS. HEPATIC FUNCTION VJPBL5112-27-34 20:00:00* Test Item Value Reference Range Interpretation [...] (test code = 347) 24 U/L 5-50 TFTULO6721-84-59 20:00:00* Test Item Value Reference Range Interpretation Comments LIPASE (BEAKER) (test code = 749) 124 U/L 40-240 CBC W/PLT COUNT & AUTO RFNODXWDWNJR0934-69-96 19:59:00* Test Item Value Reference Range Interpretation [...] K/ L 0. 00-0.20 CT, BRAIN, WITHOUT LMIFTUTL2189-95-31 19:19:00Reason for exam:->headacheIs the patient ?->UnknownWhat is [...] MDReport Verified Date/Time: 12/03/2018 19:19:03 Reading Location: [address] Neuro Reading Room , SPINE, CERVICAL, WO FRBPRUOQ5728-37-28 19:19:00Reason for exam:->neck painWhat is the patient's [...] MDReport Verified Date/Time: 12/03/2018 19:19:03 Reading Location: [address] Electronically signed by: KACEY ALEXIS MD on 9 07:19 PM L SPINE 2-3 VEWS - QOQH0658-41-42 19:36:00 [place] [address] Patient Name: ANDREA HOOVER MR #: [id number] : 1960 Age/Sex: 58/F Req #: [id number] Adm Physician: Ordered by: JORGE BLOUNT MD Report #: [id number] Location: [facility] Room/Bed: Procedure: HOPD/L SPINE 2-3 VEWS - [...] GILBERT MD, MD on 12/01/181936 Transcribed By: [employer] VAN on 12/01/181936 COPY TO: JORGE BLOUNT MD C SPINE 2--3 VEWS - [id number] 19:35:00 [place] [address] Patient Name: ANDREA HOOVER MR #: [id number] : 1960 Age/Sex: 58/F Req #: [id number] Adm Physician: Ordered by: JORGE BLOUNT MD Report #: [id number] Location: [facility] Room/Bed: Procedure: HOPD/C SPINE 2--3 VEWS - [...] 12/01/181935 COPY TO: JORGE BLOUNT MD Bedside Xcmdvgm6714-11-51 11:38:00* Test Item Value Reference Range Interpretation Comments Bedside Glucose (test code = 22223-1) 195 70-120 H Meter ID: [id number] Hospital AtascosaBedside Glucose 2018-08-18 11:38:00* Test Item Value Reference Range Interpretation Comments Bedside Glucose (test code = 25026-9) 195 70-120 H Meter ID: [id number] Hospital AtascosaDifferential Total Cells Floenuh5893-86-44 09:00:00* Test Item Value Reference Range Interpretation Comments Differential Total Cells Counted (test code = Differen tial Total Cells Counted) 100 [facility]aNeutrophils % (Manual)2018-08-18 09:00:00 * Test Item Value Reference Range Interpretation Comments Neutrophils % (Manual) (test code = 88165-0) 43 40-74 [facility]aLymphocytes % (Manual)2018-08-18 09:00:00 * Test Item Value Reference Range Interpretation Comments Lymphocytes % (Manual) (test code = 737-7) 46 19-48 [facility]aMonocytes % (Manual)2018-08-18 09:00:00* Test Item Value Reference Range Interpretation Comments Monocytes % (Manual) (test code = 744-3) 8 3.4-9.0 [facility]aEosinophils % (Manual)2018-08-18 09:00:00 * Test Item Value Reference Range Interpretation Comments Eosinophils % (Manual) (test code = 714-6) 1 0-7 [facility]cosaReactive Tucvhcdqfre1437-23-71 09:00:00* Test Item Value Reference Range Interpretation Comments Reactive Lymphocytes (test code = 22668-6) 2 [facility] AtascosaPlatelet Pmusxsqh1837-21-24 09:00:00* Test Item Value Reference Range Interpretation Comments Platelet Estimate (test code = 47452-1) ADEQUATE [facility] AtascosaPlatelet Morphology Uiynott7160-82-10 09:00:00* Test Item Value Reference Range Interpretation Comments Platelet Morphology Comment (test code = 38768-3) NORMAL [facility]aHypochromasia2019-04-02 09:00:00* Test Item Value Reference Range Interpretation Comments Hypochromasia (test code = 728-6) SLIGHT [facility]aAnisocytosis2019-04-02 09:00:00* Test Item Value Reference Range Interpretation Comments Anisocytosis (test code = 702-1) SLIGHT [facility] AtascosaRed Cell Morphology Abcsvse8725-07-88 09:00:00* Test Item Value Reference Range Interpretation Comments Red Cell Morphology Comment (test code = 6742-1) NORMAL [facility]cosaDifferential Total Cells Counted 2018-08-18 09:00:00* Test Item Value Reference Range Interpretation Comments Differential Total Cells Counted (test code = Differen tial Total Cells Counted) 100 [facility]aNeutrophils % (Manual)2018-08-18 09:00:00 * Test Item Value Reference Range Interpretation Comments Neutrophils % (Manual) (test code = 37475-0) 43 40-74 [facility]aLymphocytes % (Manual)2018-08-18 09:00:00 * Test Item Value Reference Range Interpretation Comments Lymphocytes % (Manual) (test code = 737-7) 46 19-48 [facility]aMonocytes % (Manual)2018-08-18 09:00:00* Test Item Value Reference Range Interpretation Comments Monocytes % (Manual) (test code = 744-3) 8 3.4-9.0 [facility]aEosinophils % (Manual)2018-08-18 09:00:00 * Test Item Value Reference Range Interpretation Comments Eosinophils % (Manual) (test code = 714-6) 1 0-7 [facility]cosaReactive Lwaerbxkljd8507-67-70 09:00:00* Test Item Value Reference Range Interpretation Comments Reactive Lymphocytes (test code = 10550-3) 2 [facility] AtascosaPlatelet Reyzocwd8434-88-17 09:00:00* Test Item Value Reference Range Interpretation Comments Platelet Estimate (test code = 26250-0) ADEQUATE [facility] AtascosaPlatelet Morphology Ehrndyg4873-67-82 09:00:00* Test Item Value Reference Range Interpretation Comments Platelet Morphology Comment (test code = 59164-1) NORMAL [facility]aHypochromasia2019-04-02 09:00:00* Test Item Value Reference Range Interpretation Comments Hypochromasia (test code = 728-6) SLIGHT [facility]aAnisocytosis2019-04-02 09:00:00* Test Item Value Reference Range Interpretation Comments Anisocytosis (test code = 702-1) SLIGHT [facility] AtascosaRed Cell Morphology Zmyknpi7105-14-17 09:00:00* Test Item Value Reference Range Interpretation Comments Red Cell Morphology Comment (test code = 6742-1) NORMAL [facility]aEosinophils % (Manual)2018-08-18 09:00:00 * Test Item Value Reference Range Interpretation Comments Eosinophils % (Manual) (test code = 714-6) 1 0-7 [facility]cosaReactive Glqybkfdjeu4185-90-14 09:00:00* Test Item Value Reference Range Interpretation Comments Reactive Lymphocytes (test code = 24522-7) 2 [facility]aAnisocytosis2019-04-02 09:00:00* Test Item Value Reference Range Interpretation Comments Anisocytosis (test code = 702-1) SLIGHT [facility]cosaC-Reactive Wltohqc1353-84-03 08:58:00* Test Item Value Reference Range Interpretation Comments C-Reactive Protein (test code = 1987-) 14.6 0.0-4.9 H Performed at: - [facility] [id number] Director: Manjeet Pritchard MD, Phone: [phone] Hospital AtascosaC-Reactive Pesmxcr2094-22-23 08:58:00* Test Item Value Reference Range Interpretation Comments C-Reactive Protein (test code = 1987-) 14.6 0.0-4.9 H Performed at: - [facility] [id number] Director: Manjeet Pritchard MD, Phone: [phone] Hospital AtascosaC-Reactive Haobruv9104-43-37 08:58:00* Test Item Value Reference Range Interpretation Comments C-Reactive Protein (test code = 1987-) 14.6 0.0-4.9 H Performed at: - [facility] [id number] Director: Manjeet Pritchard MD, Phone: [phone] Hospital AtascosaHemoglobin A1c Pvrnmlp2016-69-87 06:45:00* Test Item Value Reference Range Interpretation Comments Hemoglobin A1c Percent (test code = Hemoglobin A1c Percent) 12.9 4.0-7.0 H [facility]aHemoglobin A1c Pgrkwjq1644-63-34 06:45:00 * Test Item Value Reference Range Interpretation Comments Hemoglobin A1c Percent (test code = Hemoglobin A1c Percent) 12.9 4.0-7.0 H [facility]cosaHemoglobin A1c Pvspvtj4305-13-69 06:45:00 * Test Item Value Reference Range Interpretation Comments Hemoglobin A1c Percent (test code = Hemoglobin A1c Percent) 12.9 4.0-7.0 H [facility]aWhite Blood Qsjgr9378-27-83 05:58:00* Test Item Value Reference Range Interpretation Comments White Blood Count (test code = 6690-2) 11.14 4.8-10.8 H [facility]ascosaRed Blood Nfcgs1374-55-51 05:58:00* Test Item Value Reference Range Interpretation Comments Red Blood Count (test code = 789-8) 3.56 3.6-5.1 L [facility]aHemoglobin2019-04-02 05:58:00* Test Item Value Reference Range Interpretation Comments Hemoglobin (test code = 67841-3) 9.4 12.0-16.0 L [facility]aHematocrit2019-04-02 05:58:00* Test Item Value Reference Range Interpretation Comments Hematocrit (test code = 4544-3) 30.1 34.2-44.1 L [facility]cosaMean Corpuscular Byepko9938-28-83 05:58:00* Test Item Value Reference Range Interpretation Comments Mean Corpuscular Volume (test code = 787-2) 84.6 81-99 [facility]aMean Corpuscular Jmicwbiuxc1319-55-07 05:58:00* Test Item Value Reference Range Interpretation Comments Mean Corpuscular Hemoglobin (test code = 785-6) 26.4 28-32 L [facility] At[facility]cosaMean Corpuscular Hemoglobin Concent 2018-08-18 05:58:00* Test Item Value Reference Range Interpretation Comments Mean Corpuscular Hemoglobin Concent (test code = 786-4) 31.2 31-35 [facility]ascosaRed Cell Distribution Fvyod2776-89-54 05:58:00* Test Item Value Reference Range Interpretation Comments Red Cell Distribution Width (test code = 59784-8) 14.7 11.7 -14.4 H [facility] AtascosaPlatelet Aeeem2222-57-00 05:58:00* Test Item Value Reference Range Interpretation Comments Platelet Count (test code = 777-3) 316 140-360 [facility] (Auto)2018-08-18 05:58:00 * Test Item Value Reference Range Interpretation Comments Neutrophils (%) (Auto) (test code = 65412-8) 43.8 38.7-80.0 [facility]ymphocytes (%) (Auto)2018-08-18 05:58:00 * Test Item Value Reference Range Interpretation Comments Lymphocytes (%) (Auto) (test code = 736-9) 45.8 18.0-39.1 H [facility] (%) (Auto)2018-08-18 05:58:00* Test Item Value Reference Range Interpretation Comments Monocytes (%) (Auto) (test code = 5905-5) 7.8 4.4-11.3 [facility] (%) (Auto)2018-08-18 05:58:00 * Test Item Value Reference Range Interpretation Comments Eosinophils (%) (Auto) (test code = 713-8) 1.9 0.0-6.0 [facility]ophils (%) (Auto)2018-08-18 05:58:00* Test Item Value Reference Range Interpretation Comments Basophils (%) (Auto) (test code = 706-2) 0.4 0.0-1.0 [facility]aIM GRANULOCYTES %2018-08-18 05:58:00* Test Item Value Reference Range Interpretation Comments IM GRANULOCYTES % (test code = IM GRANULOCYTES %) 0.3 0.0- 1.0 [facility]aNeutrophils # (Auto)2018-08-18 05:58:00* Test Item Value Reference Range Interpretation Comments Neutrophils # (Auto) (test code = 751-8) 4.9 2.1-6.9 [facility]aLymphocytes # (Auto)2018-08-18 05:58:00* Test Item Value Reference Range Interpretation Comments Lymphocytes # (Auto) (test code = 31172-7) 5.1 1.0-3.2 H [facility]ocytes # (Auto)2018-08-18 05:58:00* Test Item Value Reference Range Interpretation Comments Monocytes # (Auto) (test code = 742-7) 0.9 0.2-0.8 [facility]osinophils # (Auto)2018-08-18 05:58:00* Test Item Value Reference Range Interpretation Comments Eosinophils # (Auto) (test code = 711-2) 0.2 0.0-0.4 [facility]ophils # (Auto)2018-08-18 05:58:00* Test Item Value Reference Range Interpretation Comments Basophils # (Auto) (test code = 704-7) 0.1 0.0-0.1 [facility]aAbsolute Immature Granulocyte (auto 2018-08-18 05:58:00* Test Item Value Reference Range Interpretation Comments Absolute Immature Granulocyte (auto (gretchen t code = Absolute Immature Granulocyte (auto) 0.03 0-0.1 [facility]aWhite Blood Aywjq1227-56-23 05:58:00* Test Item Value Reference Range Interpretation Comments White Blood Count (test code = 6690-2) 11.14 4.8-10.8 [facility]aRed Blood Qczgr1870-80-10 05:58:00* Test Item Value Reference Range Interpretation Comments Red Blood Count (test code = 789-8) 3.56 3.6-5.1 L [facility]Hemoglobin2019-04-02 05:58:00* Test Item Value Reference Range Interpretation Comments Hemoglobin (test code = 34999-9) 9.4 12.0-16.0 L [facility]Hematocrit2019-04-02 05:58:00* Test Item Value Reference Range Interpretation Comments Hematocrit (test code = 4544-3) 30.1 34.2-44.1 L [facility]aMean Corpuscular Svovvs4417-35-84 05:58:00* Test Item Value Reference Range Interpretation Comments Mean Corpuscular Volume (test code = 787-2) 84.6 81-99 [facility]aMean Corpuscular Rnfxggqbxg9636-81-01 05:58:00* Test Item Value Reference Range Interpretation Comments Mean Corpuscular Hemoglobin (test code = 785-6) 26.4 28-32 L [facility]aMean Corpuscular Hemoglobin Concent 2018-08-18 05:58:00* Test Item Value Reference Range Interpretation Comments Mean Corpuscular Hemoglobin Concent (test code = 786-4) 31.2 31-35 [facility]aRed Cell Distribution Oupvi2241-98-58 05:58:00* Test Item Value Reference Range Interpretation Comments Red Cell Distribution Width (test code = 56277-9) 14.7 11.7 -14.4 H [facility]aPlatelet Upnta3264-54-85 05:58:00* Test Item Value Reference Range Interpretation Comments Platelet Count (test code = 777-3) 316 140-360 [facility]aNeutrophils (%) (Auto)2018-08-18 05:58:00 * Test Item Value Reference Range Interpretation Comments Neutrophils (%) (Auto) (test code = 41808-1) 43.8 38.7-80.0 [facility]aLymphocytes (%) (Auto)2018-08-18 05:58:00 * Test Item Value Reference Range Interpretation Comments Lymphocytes (%) (Auto) (test code = 736-9) 45.8 18.0-39.1 [facility]ocytes (%) (Auto)2018-08-18 05:58:00* Test Item Value Reference Range Interpretation Comments Monocytes (%) (Auto) (test code = 5905-5) 7.8 4.4-11.3 [facility]osin[facility] (%) (Auto)2018-08-18 05:58:00 * Test Item Value Reference Range Interpretation Comments Eosinophils (%) (Auto) (test code = 713-8) 1.9 0.0-6.0 [facility]aBasophils (%) (Auto)2018-08-18 05:58:00* Test Item Value Reference Range Interpretation Comments Basophils (%) (Auto) (test code = 706-2) 0.4 0.0-1.0 [facility]IM GRANULOCYTES %2018-08-18 05:58:00* Test Item Value Reference Range Interpretation Comments IM GRANULOCYTES % (test code = IM GRANULOCYTES %) 0.3 0.0- 1.0 [facility]aNeutrophils # (Auto)2018-08-18 05:58:00* Test Item Value Reference Range Interpretation Comments Neutrophils # (Auto) (test code = 751-8) 4.9 2.1-6.9 [facility]aLymphocytes # (Auto)2018-08-18 05:58:00* Test Item Value Reference Range Interpretation Comments Lymphocytes # (Auto) (test code = 31695-2) 5.1 1.0-3.2 H [facility]ocytes # (Auto)2018-08-18 05:58:00* Test Item Value Reference Range Interpretation Comments Monocytes # (Auto) (test code = 742-7) 0.9 0.2-0.8 H [facility]Eosinophils # (Auto)2018-08-18 05:58:00* Test Item Value Reference Range Interpretation Comments Eosinophils # (Auto) (test code = 711-2) 0.2 0.0-0.4 [facility]aBasophils # (Auto)2018-08-18 05:58:00* Test Item Value Reference Range Interpretation Comments Basophils # (Auto) (test code = 704-7) 0.1 0.0-0.1 [facility]aAbsolute Immature Granulocyte (auto 2018-08-18 05:58:00* Test Item Value Reference Range Interpretation Comments Absolute Immature Granulocyte (auto (gretchen t code = Absolute Immature Granulocyte (auto) 0.03 0-0.1 [facility] Ftsav2638-80-32 05:48:00* Test Item Value Reference Range Interpretation Comments Sodium Level (test code = 2951-2) 134 136-145 L [facility]aPotassium Ajngw7314-46-81 05:48:00* Test Item Value Reference Range Interpretation Comments Potassium Level (test code = 2823-3) 4.4 3.5-5.1 [facility]aChloride Tpaoi5048-47-19 05:48:00* Test Item Value Reference Range Interpretation Comments Chloride Level (test code = 2075-0) 103 98-107 [facility]aCarbon Dioxide Punvt2276-20-02 05:48:00* Test Item Value Reference Range Interpretation Comments Carbon Dioxide Level (test code = 2028-9) 26 22-29 [facility]aAnion Rec6657-96-73 05:48:00* Test Item Value Reference Range Interpretation Comments Anion Gap (test code = 89560-4) 9.4 8-16 [facility]aBlood Urea Mfacnddt4548-94-20 05:48:00* Test Item Value Reference Range Interpretation Comments Blood Urea Nitrogen (test code = 3094-0) 24 7-26 [facility]aCreatinine2019-04-02 05:48:00* Test Item Value Reference Range Interpretation Comments Creatinine (test code = 2160-0) 1.24 0.57-1.11 H [facility]aBUN/Creatinine Biekz1976-54-15 05:48:00* Test Item Value Reference Range Interpretation Comments BUN/Creatinine Ratio (test code = 3097-3) 19 6- [facility]aEstimat Glomerular Filtration Rate 2018-08-18 05:48:00* Test Item Value Reference Range Interpretation Comments Estimat Glomerular Filtration Rate (test code = 411370373) 54 >60 L Ranges were taken from the National Kidney Disease Education Program and the [facility] Kidney Foundation literature.Reference ranges:60 or greater: Dkehpa59-06 ( for 3 consecutive months): Chronic kidney disease 15 or less: Kidney failureMethodist Hospital AtascosaGlucose Akioj9910-20-32 05:48:00* Test Item Value Reference Range Interpretation Comments Glucose Level (test code = XHK0047) 294 74-118 H [facility]aCalcium Dwjow6366-39-17 05:48:00* Test Item Value Reference Range Interpretation Comments Calcium Level (test code = 28094-1) 8.7 8.4-10.2 [facility]aMagnesium Wnrum1027-17-87 05:48:00* Test Item Value Reference Range Interpretation Comments Magnesium Level (test code = 56913-7) 1.9 1.3-2.1 [facility]odium Hikxb3458-92-00 05:48:00* Test Item Value Reference Range Interpretation Comments Sodium Level (test code = 2951-2) 134 136-145 L [facility]aPotassium Noxkj4152-42-77 05:48:00* Test Item Value Reference Range Interpretation Comments Potassium Level (test code = 2823-3) 4.4 3.5-5.1 [facility]aChloride Poiao3828-99-01 05:48:00* Test Item Value Reference Range Interpretation Comments Chloride Level (test code = 2075-0) 103 98-107 [facility]aCarbon Dioxide Tdedo9123-63-84 05:48:00* Test Item Value Reference Range Interpretation Comments Carbon Dioxide Level (test code = 2028-9) 26 22-29 [facility]aAnion Duc6013-89-50 05:48:00* Test Item Value Reference Range Interpretation Comments Anion Gap (test code = 74044-6) 9.4 8-16 [facility]aBlood Urea Nbvehunz1923-30-79 05:48:00* Test Item Value Reference Range Interpretation Comments Blood Urea Nitrogen (test code = 3094-0) 24 7-26 [facility]aCreatinine2019-04-02 05:48:00* Test Item Value Reference Range Interpretation Comments Creatinine (test code = 2160-0) 1.24 0.57-1.11 H [facility]aBUN/Creatinine Yrgij7837-53-33 05:48:00* Test Item Value Reference Range Interpretation Comments BUN/Creatinine Ratio (test code = 3097-3) 19 6-25 [facility]aEstimat Glomerular Filtration Rate 2018-08-18 05:48:00* Test Item Value Reference Range Interpretation Comments Estimat Glomerular Filtration Rate (test code = 017928173) 54 >60 L Ranges were taken from the National Kidney Disease Education Program and the [facility] Foundation literature.Reference ranges:60 or greater: Kmjvqo71-25 ( for 3 consecutive months): Chronic kidney disease 15 or less: Kidney failureMethodist Hospital AtascosaGlucose Hjcod9785-94-97 05:48:00* Test Item Value Reference Range Interpretation Comments Glucose Level (test code = UJG4442) 294 74-118 H [facility]aCalcium Pwptu4019-88-57 05:48:00* Test Item Value Reference Range Interpretation Comments Calcium Level (test code = 66584-3) 8.7 8.4-10.2 [facility]way[facility] Bicwm5122-17-80 05:48:00* Test Item Value Reference Range Interpretation Comments Magnesium Level (test code = 32907-1) 1.9 1.3-2.1 [facility] Parkwayesium Scrha4913-55-04 05:48:00* Test Item Value Reference Range Interpretation Comments Magnesium Level (test code = 50557-9) 1.9 1.3-2.1 [facility]aProthrombin Jpxm6007-27-99 05:43:00* Test Item Value Reference Range Interpretation Comments Prothrombin Time (test code = 5902-2) 12.3 11.9-14.5 [facility]aProthromb Time International Ratio 2018-08-18 05:43:00* Test Item Value Reference Range Interpretation Comments Prothromb Time International Ratio (test code = 6301-6) 0.87 Oral Anticoagulant Therapy INR Values:1. Low Intensity Therapy 1.5 - 2.02 . Moderate Intensity Therapy 2.0 - 3.03. High Intensity Therapy(1) 2.5 - 3. 54. High Intensity Therapy(2) 3.0 - 4.05. Panic Value INR > 5.0 [facility]aActivated Partial Thromboplast Time 2018-08-18 05:43:00* Test Item Value Reference Range Interpretation Comments Activated Partial Thromboplast Time (test code = 58573-0) 24.9 23.8-35.5 [facility]aProthrombin Jprn0754-71-26 05:43:00* Test Item Value Reference Range Interpretation Comments Prothrombin Time (test code = 5902-2) 12.3 11.9-14.5 [facility]aProthromb Time International Ratio 2018-08-18 05:43:00* Test Item Value Reference Range Interpretation Comments Prothromb Time International Ratio (test code = 6301-6) 0.87 Oral Anticoagulant Therapy INR Values:1. Low Intensity Therapy 1.5 - 2.02 . Moderate Intensity Therapy 2.0 - 3.03. High Intensity Therapy(1) 2.5 - 3. 54. High Intensity Therapy(2) 3.0 - 4.05. Panic Value INR > 5.0 [facility]aActivated Partial Thromboplast Time 2018-08-18 05:43:00* Test Item Value Reference Range Interpretation Comments Activated Partial Thromboplast Time (test code = 08132-1) 24.9 23.8-35.5 [facility]aMRI SPINE LUMBAR [id number] 15:54:00 [facility] [address] [address] Patient Name: ANDREA HOOVER MR #: [id number] : [birth year] Age/Sex: 58/F Req #: [id number] Adm Physician: AMINAH ROBBINS MD Ordered by: AMINAH ROBBINS MD Report #: [id number] Location: [facility] Room/Bed: [place] [address] Procedure: [id number] MR I/MRI SPINE LUMBAR WO Exam Date: [...] MD CT LUMBAR SPINE WITHOUT-HOPD 2018-08-16 20:11:00 [place] [address] Patient Name: ANDREA HOOVER MR #: [id number] : 1960 Age/Sex: 58/F Req #: [id number] Adm Physician: Ordered by: EVANGELINA BAIRD MD Report #: [id number] Location: [facility] Room/Bed: Procedure: [id number] HOPD /CT LUMBAR SPINE WITHOUT-HOPD Exam Date: [...] EVANGELINA BAIRD MD CT C-SPINE W/O - [id number] 20:07:00 [place] [address] Patient Name: ANDREA HOOVER MR #: [id number] : 1960 Age/Sex: 58/F Req #: [id number] Adm Physician: Ordered by: EVANGELINA BAIRD MD Report #: [id number] Location: [facility] Room/Bed: Procedure: [id number] HOPD /CT C-SPINE W/O - HOPD Exam [...] 1538) 405 mg/dL 70-110 HH TESTED AT [address] [address] BASIC METABOLIC [id number] 10:07:00* Test Item Value Reference Range Interpretation [...] GFR IS NOT APPLICABLE FOR DIALYSIS PATIENTS. [id number] 10:03:00* Test Item Value Reference Range Interpretation Comments MAGNESIUM (BEAKER) (test code = 627) 1.8 mg/dL 1.5-3.0 [id number] 10:03:00* Test Item Value Reference Range Interpretation Comments PHOSPHORUS (BEAKER) (test code = 604) 3.6 mg/dL 2.5-4.5 CREATINE KINASE (CK)2018-08-11 10:03:00* Test Item Value Reference Range Interpretation Comments CREATINE KINASE TOTAL (BEAKER) (test code = 380) 155 U/L 25-23 5 CBC W/PLT COUNT & AUTO [id number] 09:50:00* Test Item Value Reference Range Interpretation [...] L 0. 00-0.20 RAD, HIP, 2 VIEWS, [id number] 09:31:00Reason for exam:->HIP PAINxright hip/leg pain x [...] Garza Verified Date/Time: 08/11/2018 09:31:19 Reading Location: [facility] Radiology Reading Room 0 9:31 AM AFB CULTURE + [id number] 12:53:00* Test Item Value Reference Range Interpretation Comments CULTURE (BEAKER) (test code = 1095) No acid-fast bacilli isolate d in 42 days AFB SMEAR (BEAKER) (test code = 994) No acid fast bacilli seen AFB CULTURE + [id number] 12:53:00* Test Item Value Reference Range Interpretation Comments CULTURE (BEAKER) (test code = 1095) No acid-fast bacilli isolate d in 42 days AFB SMEAR (BEAKER) (test code = 994) No acid fast bacilli seen AFB CULTURE + [id number] 14:36:00* Test Item Value Reference Range Interpretation Comments CULTURE (BEAKER) (test code = 1095) No acid-fast bacilli isolate d in 42 days AFB SMEAR (BEAKER) (test code = 994) No acid fast bacilli seen BLOOD [id number] 11:00:00* Test Item Value Reference Range Interpretation Comments CULTURE (BEAKER) (test code = 1095) No growth in 5 days BLOOD [id number] 11:00:00* Test Item Value Reference Range Interpretation Comments CULTURE (BEAKER) (test code = 1095) No growth in 5 days POCT-GLUCOSE [id number] 13:22:00* Test Item Value Reference Range Interpretation Comments POC-GLUCOSE METER (BEAKER) (test code = 1538) 119 mg/dL 70-110 H TESTED AT [address] [address] SPUTUM CULTURE + GRAM [id number] 09:15:00* Test Item Value Reference Range Interpretation Comments CULTURE (BEAKER) (test code = 1095) 1+ Normal respiratory ale pre sent GRAM STAIN RESULT (BEAKER) (test code = 1123) 2+ White blood cells seen GRAM STAIN RESULT (BEAKER) (test code = 83126) 0-5 epithelial cells GRAM STAIN RESULT (BEAKER) (test code = 62321) 1+ gram negative lázaro s GRAM STAIN RESULT (BEAKER) (test code = 647355) 2+ gram posi tive cocci in pairs POCT-GLUCOSE [id number] 08:45:00* Test Item Value Reference Range Interpretation Comments POC-GLUCOSE METER (BEAKER) (test code = 1538) 227 mg/dL 70-110 H TESTED AT [address] [address] CBC W/PLT COUNT & AUTO [id number] 08:10:00* Test Item Value Reference Range Interpretation [...] quate Received comment: User comments: Slide comments: [id number] 04:34:00* Test Item Value Reference Range Interpretation Comments PHOSPHORUS (BEAKER) (test code = 604) 2.7 mg/dL 2.3-4.7 [id number] 04:34:00* Test Item Value Reference Range Interpretation Comments MAGNESIUM (BEAKER) (test code = 627) 1.7 mg/dL 1.6-2.6 BASIC METABOLIC [id number] 04:34:00* Test Item Value Reference Range Interpretation [...] IS NOT APPLICABLE FOR DIALYSIS PATIENTS. POCT-GLUCOSE [id number] 21:20:00* Test Item Value Reference Range Interpretation Comments POC-GLUCOSE METER (BEAKER) (test code = 1538) 314 mg/dL 70-110 H TESTED AT [facility] [address] [facility] [address] POCT-GLUCOSE [id number] 15:01:00* Test Item Value Reference Range Interpretation Comments POC-GLUCOSE METER (BEAKER) (test code = 1538) 103 mg/dL 70-110 TESTED AT [facility] [address] [facility] [address] SPIN/CONCENTRATION [id number] 14:17:00* Test Item Value Reference Range Interpretation Comments CONCENTRATION CHARGED (BEAKER) (test code = 2657) Done SPIN/CONCENTRATION [id number] 14:15:00* Test Item Value Reference Range Interpretation Comments CONCENTRATION CHARGED (BEAKER) (test code = 2657) Done POCT-GLUCOSE [id number] 08:32:00* Test Item Value Reference Range Interpretation Comments POC-GLUCOSE METER (BEAKER) (test code = 1538) 137 mg/dL 70-110 H TESTED AT [facility] [address] [facility] [address] [id number] 05:03:00* Test Item Value Reference Range Interpretation Comments PHOSPHORUS (BEAKER) (test code = 604) 3.6 mg/dL 2.3-4.7 [id number] 05:03:00* Test Item Value Reference Range Interpretation Comments MAGNESIUM (BEAKER) (test code = 627) 1.6 mg/dL 1.6-2.6 BASIC METABOLIC [id number] 05:03:00* Test Item Value Reference Range Interpretation [...] DIALYSIS PATIENTS. CBC W/PLT COUNT & AUTO [id number] 04:48:00* Test Item Value Reference Range Interpretation [...] code = 2801) 1 % 0-1 POCT-GLUCOSE [id number] 21:11:00* Test Item Value Reference Range Interpretation Comments POC-GLUCOSE METER (BEAKER) (test code = 1538) 170 mg/dL 70-110 H TESTED AT [facility] [address] [facility] [address] POCT-GLUCOSE [id number] 18:09:00* Test Item Value Reference Range Interpretation Comments POC-GLUCOSE METER (BEAKER) (test code = 1538) 169 mg/dL 70-110 H TESTED AT [place] [id number] [facility] [address] SPIN/CONCENTRATION [id number] 15:41:00* Test Item Value Reference Range Interpretation Comments CONCENTRATION CHARGED (BEAKER) (test code = 2657) Done POCT-GLUCOSE [id number] 12:27:00* Test Item Value Reference Range Interpretation Comments POC-GLUCOSE METER (BEAKER) (test code = 1538) 193 mg/dL 70-110 H TESTED AT [address] [address] RESPIRATORY PANEL [id number] 10:40:00* Test Item Value Reference Range Interpretation [...] detected, Equivocal ADENOVIRUS (BEAKER) (test code = 3504) Not detected Not detected, E quivocal CORONAVIRUS [...] decisions. This sample was tested at the [facility] using the PersonSpotA rray Respiratory Panel. It is FDA cleared and has been verified and approved by the [facility] for clinical use on nasal swab specim ens. It is not FDA-cleared for use on bronchial wash/lavage samples. However, fo r this sample type, validation was performed and test characteristics were deter mined and approved, by [facility] for clinical use u nder the Clinical Laboratory Improvement Amendments (CLIA) of 1988 requirements. Therefore, FDA clearance is not required. This laboratory is CLIA-certified an d [employer] ([employer])-accredited to perform high complexity t esting.HEMOGLOBIN [id number] 09:23:00* Test Item Value Reference Range Interpretation Comments HEMOGLOBIN A1C (GAL) (test code = 368) 13.4 % 4.3-6.1 H POCT-GLUCOSE [id number] 08:26:00* Test Item Value Reference Range Interpretation Comments POC-GLUCOSE METER (GAL) (test code = 1538) 263 mg/dL 70-110 H TESTED AT [facility] [address] [facility] [address] LEGIONELLA ANTIGEN, [id number] 06:25:00* Test Item Value Reference Range Interpretation Comments L. PNEUMOPHILA SEROGP 1 UR AG (BEAKER) (test code = 11 56) Negative - see comment Negative for L. pneu mophila serogroup 1 antigen, suggesting no recent or current infection with this serogroup. Legionellosis cannot be ruled out since other serogroups and species may cause disease. STREP PNEUMONIAE [id number] 06:23:00* Test Item Value Reference Range Interpretation [...] detection limit of the test .BASIC METABOLIC [id number] 03:12:00* Test Item Value Reference Range Interpretation [...] DIALYSIS PATIENTS. CBC W/PLT COUNT & AUTO [id number] 02:56:00* Test Item Value Reference Range Interpretation [...] code = 2801) 1 % 0-1 POCT-GLUCOSE [id number] 21:56:00* Test Item Value Reference Range Interpretation Comments POC-GLUCOSE METER (BEAKER) (test code = 1538) 89 mg/dL 70-110 TESTED AT [address] [address] POCT-GLUCOSE [id number] 18:36:00* Test Item Value Reference Range Interpretation Comments POC-GLUCOSE METER (BEAKER) (test code = 1538) 302 mg/dL 70-110 H Notified FAITH IGNACIO/TESTED AT [address] [address] POCT-GLUCOSE [id number] 15:37:00* Test Item Value Reference Range Interpretation Comments POC-GLUCOSE METER (BEAKER) (test code = 1538) 111 mg/dL 70-110 H TESTED AT [address] [address] POCT-GLUCOSE [id number] 13:10:00* Test Item Value Reference Range Interpretation Comments POC-GLUCOSE METER (BEAKER) (test code = 1538) 123 mg/dL 70-110 H TESTED AT [address] [address] POCT-GLUCOSE [id number] 11:24:00* Test Item Value Reference Range Interpretation Comments POC-GLUCOSE METER (BEAKER) (test code = 1538) 270 mg/dL 70-110 H TESTED AT [address] [address] POCT-GLUCOSE [id number] 08:58:00* Test Item Value Reference Range Interpretation Comments POC-GLUCOSE METER (BEAKER) (test code = 1538) 282 mg/dL 70-110 H TESTED AT [address] [address] URINALYSIS W/ [id number] 04:48:00* Test Item Value Reference Range Interpretation [...] /HPF SOURCE(BEAKER) (test code = 2795) POCT-GLUCOSE [id number] 04:25:00* Test Item Value Reference Range Interpretation Comments POC-GLUCOSE METER (BEAKER) (test code = 1538) 295 mg/dL 70-110 H TESTED AT [facility] [address] [place] [address] LACTIC ACID, VENOUS, WHOLE [id number] 03:15:00* Test Item Value Reference Range Interpretation Comments LACTATE BLOOD VENOUS (2) (BEAKER) (test code = 2872) 1.4 mmol/L 0 .5-2.2 CT, CHEST WITH IV CONTRAST- PE TEST [id number] 03:03:00FINAL REPORT EXAMINATION: CHEST CT / PE [...] is less likely. Follow up with a final armature tester recommended. Consider imaging surveillance after appropriate medical [...] discussed with Dr. Hernandez 0240 hour s. inbound call center representative infection control nurse (Fabio) also notified at 0300 hours. Signed: Fabio Mills MDReport Verified Date/Time: 06/01/2018 03:03:58 Reading Location : [address] Reading Room C METABOLIC [id number] 01:24:00* Test Item Value Reference Range Interpretation [...] FOR DIALYSIS PATIENTS. LACTIC ACID, VENOUS, WHOLE [id number] 01:22:00* Test Item Value Reference Range Interpretation Comments LACTATE BLOOD VENOUS (2) (BEAKER) (test code = 2872) 1.7 mmol/L 0 .5-2.2 RAPID TROPONIN [id number] 01:22:00* Test Item Value Reference Range Interpretation Comments RAPID TROPONIN I (BEAKER) (test code = 1483) < ng/mL <0.05 CBC W/PLT COUNT & AUTO [id number] 01:11:00* Test Item Value Reference Range Interpretation [...] K/ L 0. 00-0.20 RAPID INFLUENZA A&B [id number] 00:59:00* Test Item Value Reference Range Interpretation Comments RAPID INFLUENZA A AG (BEAKER) (test code = 1622) Negative Negative, Inconclusive RAPID INFLUENZA B AG (BEAKER) (test code = 1623) Negative Negative, Inconclusive RAD, CHEST, 2 [id number] 00:53:00Reason for exam:->COUGHReason for exam:-> GENERALIZED BODY [...] Alexis Verified Date/Time: 06/01/2018 00:53:22 Reading Location: [facility] C013 Neuro Reading Room D STREP A [id number] 00:49:00* Test Item Value Reference Range Interpretation Comments STREP A ANTIGEN (BEAKER) (test code = 556) Negative Negative RAD, FOOT, MIN 3 VIEWS, [id number] 13:00:00Reason for exam:->FOOT PAINIs the patient ?->NoShould this be performed at the bedside?->NoFINAL REPORT Three views right foot Discussion: There is what is presumably a traumatic probably subacute fracture involving the proximal metaphysis of the third toe proximal phalanx. No significant angulation or disp lacement. Remaining bones and soft tissues are unremarkable. Signed: Shelton Galicia Verified Date/Time: 02/04/2018 13:00:28 Reading Location: [facility] Radiology Reading Room D [id number] 00:00:00* Test Item Value Reference Range Interpretation Comments CULTURE (BEAKER) (test code = 1095) No growth in 5 days BLOOD [id number] 00:00:00* Test Item Value Reference Range Interpretation Comments CULTURE (BEAKER) (test code = 1095) No growth in 5 days POCT-GLUCOSE [id number] 08:26:00* Test Item Value Reference Range Interpretation Comments POC-GLUCOSE METER (BEAKER) (test code = 1538) 351 mg/dL 70-110 H TESTED AT [facility] [address] [facility] [address] BASIC METABOLIC [id number] 07:30:00* Test Item Value Reference Range Interpretation [...] DIALYSIS PATIENTS. CBC W/PLT COUNT & AUTO [id number] 06:28:00* Test Item Value Reference Range Interpretation [...] code = 2801) 1 % 0-1 POCT-GLUCOSE [id number] 20:31:00* Test Item Value Reference Range Interpretation Comments POC-GLUCOSE METER (BEAKER) (test code = 1538) 342 mg/dL 70-110 H TESTED AT [address] [address] VANCOMYCIN LEVEL, [id number] 20:15:00* Test Item Value Reference Range Interpretation Comments VANCOMYCIN TROUGH (BEAKER) (test code = 522) 22.0 ug/mL 10.0-20.0 H POCT-GLUCOSE [id number] 17:13:00* Test Item Value Reference Range Interpretation Comments POC-GLUCOSE METER (BEAKER) (test code = 1538) 321 mg/dL 70-110 H TESTED AT [address] [address] POCT-GLUCOSE [id number] 12:06:00* Test Item Value Reference Range Interpretation Comments POC-GLUCOSE METER (BEAKER) (test code = 1538) 280 mg/dL 70-110 H TESTED AT [address] [address] RAD, FOOT, 2 VIEWS, [id number] 11:01:00Reason for exam:->foot infection, non healing surgical [...] MDReport Verified Date/Time: 12/11/2017 11:01:46 Reading Location: [facility] Radiology Reading Room GLOBIN [id number] 08:08:00* Test Item Value Reference Range Interpretation Comments HEMOGLOBIN A1C (BEAKER) (test code = 368) 12.3 % 4.3-6.1 H POCT-GLUCOSE [id number] 07:51:00* Test Item Value Reference Range Interpretation Comments POC-GLUCOSE METER (BEAKER) (test code = 1538) 313 mg/dL 70-110 H TESTED AT [place] [address] LIPID [id number] 07:16:00* Test Item Value Reference Range Interpretation [...] Very High >=190 Specimen slightly lipemicBASIC METABOLIC [id number] 07:13:00* Test Item Value Reference Range Interpretation [...] GFR IS NOT APPLICABLE FOR DIALYSIS PATIENTS. PT/[id number] 07:01:00* Test Item Value Reference Range Interpretation [...] mechanical heart valves.CBC W/PLT COUNT & AUTO [id number] 06:52:00* Test Item Value Reference Range Interpretation [...] = 2801) 1 % 0-1 BASIC METABOLIC [id number] 20:45:00* Test Item Value Reference Range Interpretation [...] FOR DIALYSIS PATIENTS. LACTIC ACID, VENOUS, WHOLE [id number] 20:41:00* Test Item Value Reference Range Interpretation Comments LACTATE BLOOD VENOUS (2) (BEAKER) (test code = 2872) 2.1 mmol/L 0 .5-2.2 Specimen markedly hemolyzed Effective 09/20/2015: Units/Reference Range ChangeNew: 0.5-2.2 mmol/L Previous: 5 -20 mg/dLSpecimen slightly lipemicCBC W/PLT COUNT & AUTO [id number] 20:29:00* Test Item Value Reference Range Interpretation [...] code = 2801) 0 % 0-1 POCT-GLUCOSE [id number] 19:13:00* Test Item Value Reference Range Interpretation Comments POC-GLUCOSE METER (BEAKER) (test code = 1538) 196 mg/dL 70-110 H TESTED AT [facility] [address] [facility] [address] BLOOD [id number] 06:00:00* Test Item Value Reference Range Interpretation Comments CULTURE (BEAKER) (test code = 1095) No growth in 5 days BLOOD [id number] 06:00:00* Test Item Value Reference Range Interpretation Comments CULTURE (BEAKER) (test code = 1095) No growth in 5 days VANCOMYCIN LEVEL, [id number] 08:27:00* Test Item Value Reference Range Interpretation Comments VANCOMYCIN TROUGH (BEAKER) (test code = 522) 19.1 ug/mL 10.0-20.0 POCT-GLUCOSE [id number] 08:07:00* Test Item Value Reference Range Interpretation Comments POC-GLUCOSE METER (BEAKER) (test code = 1538) 292 mg/dL 70-110 H TESTED AT [facility] [address] [facility] [address] BASIC METABOLIC [id number] 07:09:00* Test Item Value Reference Range Interpretation [...] DIALYSIS PATIENTS. CBC W/PLT COUNT & AUTO [id number] 06:39:00* Test Item Value Reference Range Interpretation [...] code = 2801) 0 % 0-1 POCT-GLUCOSE [id number] 21:34:00* Test Item Value Reference Range Interpretation Comments POC-GLUCOSE METER (BEAKER) (test code = 1538) 273 mg/dL 70-110 H TESTED AT [place] [id number] POCT-GLUCOSE [id number] 17:06:00* Test Item Value Reference Range Interpretation Comments POC-GLUCOSE METER (BEAKER) (test code = 1538) 208 mg/dL 70-110 H TESTED AT [address] [address] POCT-GLUCOSE [id number] 12:37:00* Test Item Value Reference Range Interpretation Comments POC-GLUCOSE METER (BEAKER) (test code = 1538) 305 mg/dL 70-110 H Notified FAITH IGNACIO/TESTED AT [address] [address] POCT-GLUCOSE [id number] 09:32:00* Test Item Value Reference Range Interpretation Comments POC-GLUCOSE METER (BEAKER) (test code = 1538) 306 mg/dL 70-110 H Notified FAITH IGNACIO/TESTED AT [address] [address] VANCOMYCIN LEVEL, [id number] 04:36:00* Test Item Value Reference Range Interpretation Comments VANCOMYCIN TROUGH (BEAKER) (test code = 522) 14.0 ug/mL 10.0-20.0 POCT-GLUCOSE [id number] 21:02:00* Test Item Value Reference Range Interpretation Comments POC-GLUCOSE METER (BEAKER) (test code = 1538) 255 mg/dL 70-110 H TESTED AT [address] [address] C-REACTIVE [id number] 18:56:00* Test Item Value Reference Range Interpretation Comments C-REACTIVE PROTEIN (BEAKER) (test code = 676) 1.54 mg/dL 0.00-0.5 0 H CBC W/PLT COUNT & AUTO [id number] 17:59:00* Test Item Value Reference Range Interpretation [...] 417) 0.10 10e3/i? L 0.00-0.20 BASIC METABOLIC [id number] 17:59:00* Test Item Value Reference Range Interpretation [...] DIALYSIS PATIENTS. RAD, FOOT, MIN 3 VIEWS, [id number] 17:45:00Reason for exam:->TOE PAINIs the patient ?->NoShould [...] Munoz Verified Date/Time: 10/30/2017 17:45:28 Reading Location: [address] Consult Reading Room Electronically signed by: MADELIN MUNOZ M.D. on 2017 05:45 PM POCT-GLUCOSE [id number] 09:29:00* Test Item Value Reference Range Interpretation Comments POC-GLUCOSE METER (GAL) (test code = 1538) 438 mg/dL 70-110 HH TESTED AT [address] [address] POCT-GLUCOSE [id number] 08:24:00* Test Item Value Reference Range Interpretation Comments POC-GLUCOSE METER (GAL) (test code = 1538) 432 mg/dL 70-110 HH Notified FAITH IGNACIO/TESTED AT [address] [address] Bedside [id number] 12:12:00* Test Item Value Reference Range Interpretation Comments Bedside Glucose (test code = 41879-5) 171 70-120 H Meter ID: [id number] [facility] Level 2017-08-31 10:26:00* Test Item Value Reference Range Interpretation Comments Sodium Level (test code = 2951-2) 137 136-145 [facility] [id number] 10:26:00* Test Item Value Reference Range Interpretation Comments Potassium Level (test code = 2823-3) 3.8 3.5-5.1 [facility]aChloride [id number] 10:26:00* Test Item Value Reference Range Interpretation Comments Chloride Level (test code = 2075-0) 104 98-107 [facility]aCarbon Dioxide [id number] 10:26:00* Test Item Value Reference Range Interpretation Comments Carbon Dioxide Level (test code = 2028-9) 24 22-29 [facility]aAnion Put2509-13-98 10:26:00* Test Item Value Reference Range Interpretation Comments Anion Gap (test code = 76372-9) 12.8 8-16 [facility]aBlood Urea [id number] 10:26:00* Test Item Value Reference Range Interpretation Comments Blood Urea Nitrogen (test code = 3094-0) 13 7-26 [facility]aCreatinine2018-04-15 10:26:00* Test Item Value Reference Range Interpretation Comments Creatinine (test code = 2160-0) 1.11 0.57-1.11 [facility]aBUN/Creatinine [id number] 10:26:00* Test Item Value Reference Range Interpretation Comments BUN/Creatinine Ratio (test code = 3097-3) 12 6-25 [facility]aEstimat Glomerular Filtration Rate 2017-08-31 10:26:00* Test Item Value Reference Range Interpretation Comments Estimat Glomerular Filtration Rate (test code = 86654-8) 51 >60 L Ranges were taken from the National Kidney Disease Education Program and the [facility] literature.Reference ranges:60 or greater: Rgubhx76-76 ( for 3 consecutive months): Chronic kidney disease 15 or less: Kidney failureMethodist Hospital AtascosaGlucose Rqbev8895-25-84 10:26:00* Test Item Value Reference Range Interpretation Comments Glucose Level (test code = OOK7164) 157 74-118 H [facility]aCalcium Amiwv6679-83-83 10:26:00* Test Item Value Reference Range Interpretation Comments Calcium Level (test code = 42134-7) 8.9 8.4-10.2 [facility]aTotal Hbygifxwy8400-90-32 10:26:00* Test Item Value Reference Range Interpretation Comments Total Bilirubin (test code = 1975-2) 0.3 0.2-1.2 [facility]cosaAspartate Amino Transf (AST/SGOT) 2017-08-31 10:26:00* Test Item Value Reference Range Interpretation Comments Aspartate Amino Transf (AST/SGOT) (test code = Aspartate Amino Transf (AST/SGOT)) 17 5-34 [facility]aAlanine Aminotransferase (ALT/SGPT) 2017-08-31 10:26:00* Test Item Value Reference Range Interpretation Comments Alanine Aminotransferase (ALT/SGPT) (test code = 1742-6) 38 0-55 [facility] Fqbnrok2882-47-26 10:26:00* Test Item Value Reference Range Interpretation Comments Total Protein (test code = 2885-2) 7.0 6.5-8.1 [facility]aAlbumin2018-04-15 10:26:00* Test Item Value Reference Range Interpretation Comments Albumin (test code = 1751-7) 2.7 3.5-5.0 L [facility]aGlobulin2018-04-15 10:26:00* Test Item Value Reference Range Interpretation Comments Globulin (test code = 90806-9) 4.3 2.3-3.5 H [facility]aAlbumin/Globulin [id number] 10:26:00 * Test Item Value Reference Range Interpretation Comments Albumin/Globulin Ratio (test code = 1759-0) 0.6 0.8-2.0 L [facility]aAlkaline Dvgzpfvqcgg2623-79-90 10:26:00* Test Item Value Reference Range Interpretation Comments Alkaline Phosphatase (test code = 6768-6) 96 40-150 [facility]aB-Type Natriuretic Wzpmwkf3063-57-13 10:26:00* Test Item Value Reference Range Interpretation Comments B-Type Natriuretic Peptide (test code = 22790-5) 159.0 0-100 H [facility]aMagnesium Njdee0646-16-22 08:22:00* Test Item Value Reference Range Interpretation Comments Magnesium Level (test code = 33607-5) 1.5 1.3-2.1 [facility]aWhite Blood Mcpdf3685-48-04 08:06:00* Test Item Value Reference Range Interpretation Comments White Blood Count (test code = 6690-2) 12.94 4.8-10.8 H [facility]aRed Blood Xqrnl8543-66-56 08:06:00* Test Item Value Reference Range Interpretation Comments Red Blood Count (test code = 789-8) 3.29 3.6-5.1 L [facility]aHemoglobin2018-04-15 08:06:00* Test Item Value Reference Range Interpretation Comments Hemoglobin (test code = 61756-4) 8.9 12.0-16.0 L [facility]aHematocrit2018-04-15 08:06:00* Test Item Value Reference Range Interpretation Comments Hematocrit (test code = 4544-3) 27.2 34.2-44.1 L [facility]aMean Corpuscular Vxeqjy9139-92-37 08:06:00* Test Item Value Reference Range Interpretation Comments Mean Corpuscular Volume (test code = 787-2) 82.7 81-99 [facility]aMean Corpuscular Radxsasrnb8671-66-75 08:06:00* Test Item Value Reference Range Interpretation Comments Mean Corpuscular Hemoglobin (test code = 785-6) 27.1 28-32 L [facility]aMean Corpuscular Hemoglobin Concent 2017-08-31 08:06:00* Test Item Value Reference Range Interpretation Comments Mean Corpuscular Hemoglobin Concent (test code = 786-4) 32.7 31-35 [facility]aRed Cell Distribution Cmbix1131-97-22 08:06:00* Test Item Value Reference Range Interpretation Comments Red Cell Distribution Width (test code = 00858-2) 13.6 11.7 -14.4 [facility]ascosaPlatelet Syitv2271-82-85 08:06:00* Test Item Value Reference Range Interpretation Comments Platelet Count (test code = 777-3) 437 140-360 H [facility]aNeutrophils (%) (Auto)2017-08-31 08:06:00 * Test Item Value Reference Range Interpretation Comments Neutrophils (%) (Auto) (test code = 22591-0) 56.6 38.7-80.0 [facility]aLymphocytes (%) (Auto)2017-08-31 08:06:00 * Test Item Value Reference Range Interpretation Comments Lymphocytes (%) (Auto) (test code = 736-9) 31.5 18.0-39.1 [facility]aMonocytes (%) (Auto)2017-08-31 08:06:00* Test Item Value Reference Range Interpretation Comments Monocytes (%) (Auto) (test code = 5905-5) 9.0 4.4-11.3 [facility]aEosinophils (%) (Auto)2017-08-31 08:06:00 * Test Item Value Reference Range Interpretation Comments Eosinophils (%) (Auto) (test code = 713-8) 1.8 0.0-6.0 [facility]aBasophils (%) (Auto)2017-08-31 08:06:00* Test Item Value Reference Range Interpretation Comments Basophils (%) (Auto) (test code = 706-2) 0.5 0.0-1.0 [facility]aIM GRANULOCYTES %2017-08-31 08:06:00* Test Item Value Reference Range Interpretation Comments IM GRANULOCYTES % (test code = IM GRANULOCYTES %) 0.6 0.0- 1.0 [facility]aNeutrophils # (Auto)2017-08-31 08:06:00* Test Item Value Reference Range Interpretation Comments Neutrophils # (Auto) (test code = 751-8) 7.3 2.1-6.9 H [facility]aLymphocytes # (Auto)2017-08-31 08:06:00* Test Item Value Reference Range Interpretation Comments Lymphocytes # (Auto) (test code = 78030-1) 4.1 1.0-3.2 H [facility]aMonocytes # (Auto)2017-08-31 08:06:00* Test Item Value Reference Range Interpretation Comments Monocytes # (Auto) (test code = 742-7) 1.2 0.2-0.8 H [facility]aEosinophils # (Auto)2017-08-31 08:06:00* Test Item Value Reference Range Interpretation Comments Eosinophils # (Auto) (test code = 711-2) 0.2 0.0-0.4 [facility]aBasophils # (Auto)2017-08-31 08:06:00* Test Item Value Reference Range Interpretation Comments Basophils # (Auto) (test code = 704-7) 0.1 0.0-0.1 [facility]ascosaAbsolute Immature Granulocyte (auto 2017-08-31 08:06:00* Test Item Value Reference Range Interpretation Comments Absolute Immature Granulocyte (auto (gretchen t code = Absolute Immature Granulocyte (auto) 0.08 0-0.1 [facility]aC-Reactive Ohkjjzs6588-42-71 13:22:00* Test Item Value Reference Range Interpretation Comments C-Reactive Protein (test code = 1988-5) 58.7 0.0-4.9 H Performed at: [facility] [id number] Director: Manjeet Pritchard MD, Phone: [phone] Hospital AtascosaDifferential Total Cells Bkxytdg3761-83-74 07:39:00* Test Item Value Reference Range Interpretation Comments Differential Total Cells Counted (test code = Differen tial Total Cells Counted) 100 [facility]aNeutrophils % (Manual)2017-08-29 07:39:00 * Test Item Value Reference Range Interpretation Comments Neutrophils % (Manual) (test code = 83659-1) 64 40-74 [facility]aBand Neutrophils %2017-08-29 07:39:00* Test Item Value Reference Range Interpretation Comments Band Neutrophils % (test code = 764-1) 1 [facility]aLymphocytes % (Manual)2017-08-29 07:39:00 * Test Item Value Reference Range Interpretation Comments Lymphocytes % (Manual) (test code = 737-7) 23 19-48 [facility]aMonocytes % (Manual)2017-08-29 07:39:00* Test Item Value Reference Range Interpretation Comments Monocytes % (Manual) (test code = 744-3) 10 3.4-9.0 H [facility]aEosinophils % (Manual)2017-08-29 07:39:00 * Test Item Value Reference Range Interpretation Comments Eosinophils % (Manual) (test code = 714-6) 2 0-7 [facility] AtascosaPlatelet Grevuifm7008-46-29 07:39:00* Test Item Value Reference Range Interpretation Comments Platelet Estimate (test code = 27035-2) ADEQUATE [facility] AtascosaPlatelet Morphology Fjfymgx7249-97-96 07:39:00* Test Item Value Reference Range Interpretation Comments Platelet Morphology Comment (test code = 51138-9) NORMAL [facility]aRed Cell Morphology Qncffrx0057-66-50 07:39:00* Test Item Value Reference Range Interpretation Comments Red Cell Morphology Comment (test code = 6742-1) NORMAL [facility]cosaReactive Bqnlwyjkwye3537-23-11 08:45:00* Test Item Value Reference Range Interpretation Comments Reactive Lymphocytes (test code = 57117-6) 3 [facility]aHypochromasia2018-04-12 08:45:00* Test Item Value Reference Range Interpretation Comments Hypochromasia (test code = 728-6) SLIGHT [facility]aPoikilocytosis2018-04-12 08:45:00* Test Item Value Reference Range Interpretation Comments Poikilocytosis (test code = 779-9) SLIGHT [facility]aAnisocytosis2018-04-12 08:45:00* Test Item Value Reference Range Interpretation Comments Anisocytosis (test code = 702-1) SLIGHT [facility]aMacrocytosis2018-04-12 08:45:00* Test Item Value Reference Range Interpretation Comments Macrocytosis (test code = 738-5) MODERATE [facility]cosaThyroid Stimulating Hormone (TSH) 2017-08-28 07:44:00* Test Item Value Reference Range Interpretation Comments Thyroid Stimulating Hormone (TSH) (test code = 68374-6) 1.031 0.350-4.940 [facility]ascosaActivated Partial Thromboplast Time 2017-08-28 07:21:00* Test Item Value Reference Range Interpretation Comments Activated Partial Thromboplast Time (test code = 16202-5) 56.8 23.8-35.5 H [facility]aTriglycerides Vmrct2505-92-94 07:10:00* Test Item Value Reference Range Interpretation Comments Triglycerides Level (test code = 2571-8) 53 0-149 [facility]aCholesterol Kuuyu2686-82-22 07:10:00* Test Item Value Reference Range Interpretation Comments Cholesterol Level (test code = 2093-3) 108 0-199 Less than 200 mg/dL Low Zzyn965 - 239 mg/dL Borderline Xgqo619 m g/dl and greater High Risk [facility]cosaLDL Sfuiwrhxwdz8589-91-33 07:10:00* Test Item Value Reference Range Interpretation Comments LDL Cholesterol (test code = 2089-1) 54 60-130 L [facility]cosaHDL Udfaprexbsh4683-18-74 07:10:00* Test Item Value Reference Range Interpretation Comments HDL Cholesterol (test code = 2085-9) 43 40-60 [facility]aCholesterol/HDL Bckry8273-38-50 07:10:00 * Test Item Value Reference Range Interpretation Comments Cholesterol/HDL Ratio (test code = 9830-1) 2.5 3.0-3.6 L [facility]aPhosphorus Dwotz1650-40-89 07:55:00* Test Item Value Reference Range Interpretation Comments Phosphorus Level (test code = VPI8724) 4.4 2.3-4.7 [facility]aCreatine Kinase VN1345-43-25 01:16:00* Test Item Value Reference Range Interpretation Comments Creatine Kinase MB (test code = 14951-6) 1.40 0-5.0 [facility]aTroponin W2562-75-28 01:16:00* Test Item Value Reference Range Interpretation Comments Troponin I (test code = LYV9723) 0.124 0-0.300 [facility]aCreatine Bcyotu3969-65-64 00:59:00* Test Item Value Reference Range Interpretation Comments Creatine Kinase (test code = 2157-6) 78 29-168 [facility]aProthrombin Tval2705-88-04 21:43:00* Test Item Value Reference Range Interpretation Comments Prothrombin Time (test code = 5902-2) 13.4 11.9-14.5 [facility]aProthromb Time International Ratio 2017-08-26 21:43:00* Test Item Value Reference Range Interpretation Comments Prothromb Time International Ratio (test code = 6301-6) 1.10 Oral Anticoagulant Therapy INR Values:1. Low Intensity Therapy 1.5 - 2.02 . Moderate Intensity Therapy 2.0 - 3.03. High Intensity Therapy(1) 2.5 - 3. 54. High Intensity Therapy(2) 3.0 - 4.05. Panic Value INR > 5.0 [facility]cosaD-Dimer Quantitative (PE/DVT)2017-08-26 21:43:00* Test Item Value Reference Range Interpretation Comments D-Dimer Quantitative (PE/DVT) (test code = 38802-6) 2.21 0. 00-0.45 H As with all in vitro diagnostic tests, the test results should be interpreted by the physician in conjunction with clinical findings and other test results.Test results are reported in NEW D-dimer units(ug/mLFEU).[facility]aArterial Blood [id number] 21:00:00* Test Item Value Reference Range Interpretation Comments Arterial Blood pH (test code = 2744-1) 7.44 7.31-7.41 H [facility]aArterial Blood Partial Pressure CO2 2017-08-26 21:00:00* Test Item Value Reference Range Interpretation Comments Arterial Blood Partial Pressure CO2 (test code = 2019-8) 27 41-51 L [facility]cosaArterial Blood Partial Pressure O2 2017-08-26 21:00:00* Test Item Value Reference Range Interpretation Comments Arterial Blood Partial Pressure O2 (test code = 2018-8) 48 80-105 LL Results called/hand delivered to DR. PRITCHARD at 2058 on 08/26/17 by PAZ CHAVEZ.[facility]aArterial Blood API05919-20-92 21:00:00* Test Item Value Reference Range Interpretation Comments Arterial Blood HCO3 (test code = 1960-4) 19 23-28 L [facility]cosaArterial Blood Base Cwgdky2161-08-53 21:00:00* Test Item Value Reference Range Interpretation Comments Arterial Blood Base Excess (test code = 1925-7) -6.0 -2-3 L [facility] AtascosaArterial Blood Oxygen Saturation 2017-08-26 21:00:00* Test Item Value Reference Range Interpretation Comments Arterial Blood Oxygen Saturation (test code = 2708-6) 86.0 95-98 L [facility]aFiO22018-04-10 21:00:00* Test Item Value Reference Range Interpretation Comments FiO2 (test code = FiO2) 21 [facility]aVancomycin Level Nollwe9981-58-77 08:49:00* Test Item Value Reference Range Interpretation Comments Vancomycin Level Trough (test code = 4092-3) 9.3 5.0-10.0 [facility]aErythrocyte Sedimentation Ybpi5288-63-49 07:54:00* Test Item Value Reference Range Interpretation Comments Erythrocyte Sedimentation Rate (test code = 4537-7) 52 0- 20 H [facility]aHemoglobin A1c Xdkahof6358-97-22 07:35:00 * Test Item Value Reference Range Interpretation Comments Hemoglobin A1c Percent (test code = Hemoglobin A1c Percent) 11.9 4.0-7.0 H [facility]aPOCT-GLUCOSE EYJZE6215-11-97 12:10:00* Test Item Value Reference Range Interpretation Comments POC-GLUCOSE METER (BEAKER) (test code = 1538) 133 mg/dL 70-110 H TESTED AT [facility] [address] [facility] [address] HEMOGLOBIN [id number] 08:17:00* Test Item Value Reference Range Interpretation Comments HEMOGLOBIN A1C (BEAKER) (test code = 368) 13.3 % 4.3-6.1 H POCT-GLUCOSE [id number] 07:33:00* Test Item Value Reference Range Interpretation Comments POC-GLUCOSE METER (BEAKER) (test code = 1538) 268 mg/dL 70-110 H TESTED AT [address] [address] B-TYPE NATRIURETIC FACTOR (BNP)2016-07-28 06:03:00* Test Item Value Reference Range Interpretation Comments B-TYPE NATRIURETIC PEPTIDE (BEAKER) (test code = 700) 57 pg/mL 0-100 POCT-GLUCOSE [id number] 01:17:00* Test Item Value Reference Range Interpretation Comments POC-GLUCOSE METER (BEAKER) (test code = 1538) 270 mg/dL 70-110 H TESTED AT [address] [address] POCT-GLUCOSE [id number] 20:33:00* Test Item Value Reference Range Interpretation Comments POC-GLUCOSE METER (BEAKER) (test code = 1538) 312 mg/dL 70-110 H TESTED AT [address] [address] POCT-GLUCOSE [id number] 17:44:00* Test Item Value Reference Range Interpretation Comments POC-GLUCOSE METER (BEAKER) (test code = 1538) 376 mg/dL 70-110 H TESTED AT [address] [address] KETONE, [id number] 16:40:00* Test Item Value Reference Range Interpretation Comments KETONES, BLOOD (BEAKER) (test code = 1103) 0.1 mmol/L <0.4 BASIC METABOLIC [id number] 16:11:00* Test Item Value Reference Range Interpretation [...] GFR IS NOT APPLICABLE FOR DIALYSIS PATIENTS. PT/[id number] 16:09:00* Test Item Value Reference Range Interpretation [...] for pat ients with mechanical heart valves.RAPID [id number] 16:02:00* Test Item Value Reference Range Interpretation Comments RAPID CKMB (BEAKER) (test code = 1482) 3.4 ng/mL 0.0-4.3 RAPID TROPONIN [id number] 16:02:00* Test Item Value Reference Range Interpretation Comments RAPID TROPONIN I (BEAKER) (test code = 1483) < ng/mL <0.05 CBC W/PLT COUNT & AUTO [id number] 15:58:00* Test Item Value Reference Range Interpretation [...] 10e3/ L 0. 00-0.20 CHEST SINGLE (PORTABLE) [facility] [address] [address] Patient Name: ANDREA HOOVER MR #: [id number] : 1960 Age/Sex: 57/F Req #: [id number] Adm Physician: AMINAH ROBBINS MD Ordered by: AMINAH ROBBINS MD Report #: [id number] Location: MED/SURG3 Room/Bed: [facility] Procedure: [id number] DX /CHEST SINGLE (PORTABLE) Exam Date: Exam [...] lateral chest radiograph. Signed by: DR. Arsalan Watson MD on 8 6:12 PM Dictated By: ARSALAN WATSON MD 11 Transcribed By: RUCHI on 08/30/171811 COPY TO: AMINAH ROBBINS MD MRI FOOT LEFT WO [place] [address] Patient Name: ANDREA HOOVER MR #: [id number] : 1960 Age/Sex: 57/F Req #: [id number] Adm Physician: AMINAH ROBBINS MD Ordered by: YOEL HUGGINS MD Report #: [id number] Location: MED/SURG3 Room/Bed: [facility] Procedure: [id number] MRI /MRI FOOT LEFT WO Exam Date: [...] HUGGINS MD VQ LUNG SCAN VENT PERFUSION [place] [address] Patient Name: ANDREA HOOVER MR #: [id number] : 1960 Age/Sex: 57/F Req #: [id number] Adm Physician: AMINAH ROBBINS MD Ordered by: CRICKET KILGORE MD Report #: [id number] Location: [facility] Room/Bed: [facility] Procedure: [id number] NM/VQ LUNG SCAN VENT PERFUSION Exam Date: [...] COPY TO: CRICKET KILGORE MD ABDOMEN-1VIEW (KUB) [place] [address] Patient Name: ANDREA HOOVER MR #: [id number] : 1960 Age/Sex: 57/F Req #: [id number] [facility] Physician: AMINAH ROBBINS MD Ordered by: AMINAH ROBBINS MD Report #: [id number] Location: MED/SURG3 Room/Bed: [facility] Procedure: [id number] DX /ABDOMEN-1VIEW (KUB) Exam Date: 08/27/17 Exam [...] TO: AMINAH ROBBINS MD CHEST SINGLE (PORTABLE) [place] [address] Patient Name: ANDREA HOOVER MR #: [id number] : 1960 Age/Sex: 57/F Req #: [id number] Adm Physician: AMINAH ROBBINS MD Ordered by: NO AL MD Report #: [id number] Location: MED/SURG3 Room/Bed: [facility] Procedure: [id number] DX/CHEST SINGLE (PORTABLE) Exam Date: Exam Time: [...] M.D. on 08/27/2017 5:48 AM Dictated By: IPLY Bobby 7 Transcribed By: RUCHI on 08/27/17547 COPY TO: NO AL MD CT BRAIN WO [place] [address] Patient Name: ANDREA HOOVER MR #: [id number] : 1960 Age/Sex: 57/F Req #: [id number] Adm Physician: AMINAH ROBBINS MD Ordered by: NO AL MD Report #: [id number] Loca tion: MED/SURG3 Room/Bed: [facility] Procedure: [id number] CT/CT BRAIN WO Exam Date: Exam Time: [...] TO: NO SHARPE MD FOOT LEFT COMPLETE [place] [address] Patient Name: ANDREA HOOVER MR #: [id number] : 1960 Age/Sex: 57/F Req #: [id number] Adm Physician: AMINAH ROBBINS MD Ordered by: JOSH PRATER DPM Report #: [id number] Location: MED/SURG3 Room/Bed: [facility] Procedure: [id number] DX/F OOT LEFT COMPLETE Exam Date: 08/22/17 Exam Time: 091 0 REPORT STATUS: Signed PROCEDURE: FOOT LEFT COMPLETE TECHNIQUE: AP, lateral and oblique views left foot INDICATION: Great toe swelling COM PARISON: [facility], DX, FOOT LEFT COMPLETE, 08/19/2017, 21:01. FINDINGS: [...] TO: JOSH PRATER DPM FOOT LEFT COMPLETE [place] [address] Patient Name: ANDREA HOOVER MR #: [id number] : 1960 Age/Sex: 57/F Req #: [id number] Adm Physician: KAYA VAN MD Ordered by: CRICKET KILGORE MD Report #: [id number] Location: [facility] Room/Bed: [place] [address] Procedure: [id number] DX/ FOOT LEFT COMPLETE Exam Date: 08/19/17 [...] TO: CRICKET KILGORE MD CHEST SINGLE (PORTABLE) [place] [address] Patient Name: ANDREA HOOVER MR #: [id number] : 1960 Age/Sex: 57/F Req #: [id number] Adm Physician: Ordered by: CRICKET KILGORE MD Report #: [id number] Location: ER Room/Bed: Procedure: [id number] DX/CHEST SINGLE (PORTABLE) Exam Date: Exam Time: [...]
[2020-01-16] MEDS ORDERED: SODIUM CHLORIDE 0.9% 1000ML 1,000 ML IV STA (14:24)
[2020-01-16] MEDS ORDERED: SODIUM CHLORIDE 0.9% 1000ML 1,000 ML IV SCH (14:30)
--- NOTE | 2020-01-16 14:59 | Diagnostic Imaging Report ---
X-ray site and # of views HISTORY: Foot ulcer concerning for osteomyelitis. COMPARISON: None available. FINDINGS: Status post amputation of the fourth metatarsal. There is lateral subluxation at the second and third metatarsophalangeal joints and degenerative changes of multiple interphalangeal joints. There is a scalloped appearance with periosteal reaction of the distal phalanx of the great toe. There is diffuse soft tissue swelling and area of lucency in the plantar forefoot seen on the lateral view. IMPRESSION: 1. Scalloped appearance with periosteal reaction of the distal phalanx of the great toe. This may be related to chronic changes of osteomyelitis or trauma. If this is the area of concern, an MRI of the foot can be considered for more definitive diagnosis. 2. Diffuse soft tissue edema and an area of lucency in the plantar forefoot which may represent subcutaneous emphysema or fluid collection. Signed by: Aquilino Gasca MD on 01/16/2020 2:55 PM
[2020-01-16] MEDS ORDERED: INSULIN REGULAR, HUMAN 100 UNIT/1 ML 3ML VIAL IV ONE (15:00)
--- NOTE | 2020-01-16 15:02 | Diagnostic Imaging Report ---
EXAMINATION: CHEST SINGLE (PORTABLE) INDICATION: Fever and shortness of breath COMPARISON: Multiple prior Chest x-ray including most recent on 08/06/2019. FINDINGS: TUBES and LINES: Right central venous access. LUNGS: Low lung volumes. There is hazy opacification the bilateral lung bases. No consolidations. PLEURA: No pleural effusion or pneumothorax. HEART AND MEDIASTINUM: The cardiomediastinal silhouette is mildly enlarged, however this may be due to accentuation from patient rotation and low lung volumes. BONES AND SOFT TISSUES: No acute osseous lesion. Soft tissues are unremarkable. UPPER ABDOMEN: No free air under the diaphragm. IMPRESSION: Hazy opacification the bilateral lung bases which may represent atelectasis and/or developing multifocal pneumonia in the proper clinical context Signed by: Aquilino Gasca MD on 01/16/2020 2:59 PM
[2020-01-16] MEDS ORDERED: METOCLOPRAMIDE HCL 10 MG/2ML VIAL IV ONE (15:30)
[2020-01-16] MEDS ORDERED: MORPHINE SULFATE INJ 4 MG/ML INJ 1ML IV PRN (15:30)
--- NOTE | 2020-01-16 15:31 | Diagnostic Imaging Report ---
EXAMINATION: CHEST XRAY LINE PLACEMENT INDICATION: RIGHT IJ CVC PLACEMENT COMPARISON: Multiple prior x-rays including most recent earlier today. FINDINGS: TUBES and LINES: There has been interval placement of a right internal jugular central venous catheter which terminates in the distal SVC. LUNGS: The lungs are well inflated. There is persistent hazy opacification the bilateral lung bases. No focal consolidations. PLEURA: No pleural effusion or pneumothorax. HEART AND MEDIASTINUM: The cardiomediastinal silhouette is mildly enlarged. BONES AND SOFT TISSUES: No acute osseous lesion. Soft tissues are unremarkable. UPPER ABDOMEN: No free air under the diaphragm. IMPRESSION: 1. Interval placement of a right internal jugular central venous catheter which terminates in the distal SVC. 2. Persistent haziness of the bilateral lung bases which may represent atelectasis and/or developing multifocal pneumonia in the proper clinical context. Signed by: Aquilino Gasca MD on 01/16/2020 3:27 PM
[2020-01-16 15:55] LABS: ABG HCO3 23 mmol/L (22-26); ABG PCO2 33 mmHg (35-45); ABG PH 7.45 (7.35-7.45); ABG PO2 61 mmHg (80-105); ABG TCO2 24
[2020-01-16] MEDS ORDERED: ACETAMINOPHEN 325 MG TAB PO ONE (16:00)
[2020-01-16 16:10] LABS: ANION GAP 16.6 mmol/L (8-16); CALCIUM 8.7 mg/dL (8.4-10.2); CREATININE, SERUM 1.87 mg/dL (0.57-1.11); POTASSIUM 3.6 mmol/L (3.5-5.1)
[2020-01-16] MEDS ORDERED: DEXTROSE 50% SYRINGE 50 ML IV ONE ×2 (16:22→18:30)
--- NOTE | 2020-01-16 18:07 | NUR ---
Received patient from ER patient arrived in stretcher she transferred from stretcher to bed independently, has edema to right foot, has past toe amputation, Redness to foot and to outer lateral of 5th toe. Placed on telemetry denies shortness of breath, patient up to void in bathroom. oriented to room and use of call light verbalized understanding.
[2020-01-16 18:18] VITALS: BP 97/76
[2020-01-16 18:23] VITALS: BP 97/76
[2020-01-16 18:40] VITALS: BP 97/76
[2020-01-16 19:33] VITALS: BP 138/46
--- NOTE | 2020-01-16 19:50 | NUR ---
Called consult to Annette Quiroga answering service
[2020-01-16 20:17] VITALS: BP 138/46
--- NOTE | 2020-01-16 22:55 | NUR ---
Notified Dr Cuellar regarding patient c/o nausea and states Phenergan helps and patient been running fevers, would like to order tylenol. New orders for phenergan 12.5mg iv Q 4hrs PRN N/V, tylenol 650 mg po Q 6hrs prn pain/fever
[2020-01-16] MEDS ORDERED: ACETAMINOPHEN 325 MG TAB PO PRN (23:00)
[2020-01-16] MEDS: PROMETHAZINE 12.5MG/ NACL 0.9% 12.5 MG/50 ML BAG IV PRN (23:06)
[2020-01-17] VITALS (9 sets, daily range): BP systolic 97–147; BP diastolic 48–62
[2020-01-17 04:59] LABS: BASOPHILS # (AUTO) 0.1 (0.0-0.1); BASOPHILS % 0.4 % (0.0-1.0); EOSINOPHILS # (AUTO) 0.2 (0.0-0.4); LYMPHOCYTES % 16.2 % (18.0-39.1); MEAN CORPUSCULAR HEMOGLOBIN 25.3 pg (28-32); MEAN CORPUSCULAR VOLUME 81.5 fL (81-99); MONOCYTES # (AUTO) 1.5 (0.2-0.8); MONOCYTES % 8.3 % (4.4-11.3); NEUTROPHILS # (AUTO) 13.5 (2.1-6.9); NEUTROPHILS % 73.1 % (38.7-80.0); PLATELET COUNT 539 x10e3/uL (140-360); RED BLOOD COUNT 2.49 x10e6/uL (3.6-5.1); RED CELL DISTRIBUTION WIDTH 13.2 % (11.7-14.4)
[2020-01-17 05:15] LABS: HEMOGLOBIN 6.3 g/dL (12.0-16.0)
[2020-01-17 05:16] LABS: HEMATOCRIT 20.3 % (34.2-44.1)
[2020-01-17 05:22] LABS: ALBUMIN/GLOBULIN RATIO 0.4 (0.8-2.0); ANION GAP 14.9 mmol/L (8-16); CREATININE, SERUM 1.83 mg/dL (0.57-1.11); POTASSIUM 3.9 mmol/L (3.5-5.1)
--- NOTE | 2020-01-17 05:35 | NUR ---
Lab alert reported to Dr Cuellar: H/H 6.3/20.3. New orders received
[2020-01-17] MEDS ORDERED: ACETAMINOPHEN 325 MG TAB PO ONE (05:45)
[2020-01-17] MEDS ORDERED: DIPHENHYDRAMINE HCL 25 MG CAP PO ONE (05:45)
[2020-01-17] MEDS ORDERED: FUROSEMIDE INJ 10 MG/ML 2 ML VIAL IV ONE (05:45)
[2020-01-17 06:00] LABS: COLOR,URINE YELLOW (YELLOW)
[2020-01-17 06:01] LABS: AMPHETAMINES SCREEN,URINE NEGATIVE (NEGATIVE); CLARITY,URINE SL CLOUDY (CLEAR); KETONES,URINE NEGATIVE (NEGATIVE); LEUKOCYTE ESTERASE ,URINE NEGATIVE (NEGATIVE); NITRITE,URINE NEGATIVE (NEGATIVE); PHENCYCLIDINE SCREEN,URINE NEGATIVE (NEGATIVE); PROTEIN,URINE DIPSTICK >=300 (NEGATIVE)
[2020-01-17 06:02] LABS: BACTERIA,URINE RARE /HPF; BENZODIAZEPINES SCREEN,URINE NEGATIVE (NEGATIVE); BILIRUBIN,URINE NEGATIVE (NEGATIVE); EPITHELIAL CELLS,URINE FEW /LPF; URINE UROBILINOGEN 0.2 mg/dL (0.2 - 1)
[2020-01-17] MEDS ORDERED: FUROSEMIDE INJ 10 MG/ML 2 ML VIAL IV SCH ×2 (06:45→07:30)
[2020-01-17] MEDS ORDERED: DIPHENHYDRAMINE HCL 25 MG CAP PO SCH (06:45)
[2020-01-17] MEDS ORDERED: ACETAMINOPHEN 325 MG TAB PO SCH (06:45)
[2020-01-17 07:52] LABS: % IRON SATURATION 9 % (15-50); IRON 13 ug/dL (50-170); TOTAL IRON BINDING CAPACITY 146 ug/dL (261-478); TRANSFERRIN 104 mg/dL (180-382)
[2020-01-17] MEDS: PROMETHAZINE 12.5MG/ NACL 0.9% 12.5 MG/50 ML BAG IV PRN (08:37)
--- NOTE | 2020-01-17 08:41 | NUR ---
pt vs stable. no s/s distress. no c/o pain. pending type/screen for blood admin.
[2020-01-17] MEDS ORDERED: DEXTROSE 50% SYRINGE 50 ML IV PRN (09:00)
[2020-01-17] MEDS ORDERED: MUPIROCIN 2% OINT 22 GM TUBE TOP SCH (09:00)
[2020-01-17] MEDS: HYDRALAZINE HCL 25 MG TAB PO SCH ×3 (09:00→20:27)
[2020-01-17] MEDS ORDERED: NON-FORMULARY MEDICATION (Carvedilol 25 MG) PO SCH (09:00)
[2020-01-17] MEDS ORDERED: ALBUTEROL/IPRATROPIUM 3 ML NEB NEB PRN (09:00)
[2020-01-17] MEDS ORDERED: CEFTRIAXONE SOD 1 GM/NS 50 ML 50 ML IV SCH (09:00)
[2020-01-17] MEDS ORDERED: DULOXETINE HCL 30 MG DELAYED RELEASE PO SCH (09:00)
[2020-01-17] MEDS ORDERED: BACLOFEN 10 MG TAB PO SCH (09:00)
--- NOTE | 2020-01-17 09:10 | Consultation ---
DATE OF CONSULTATION: 01/17/2020 REASON FOR CONSULTATION: Nonhealing ulcerations to the right foot with the patient being an insulin-dependent diabetic. HISTORY OF PRESENT ILLNESS: This is a pleasant 59-year-old Afro-[place]ic female, who relates that she has had nonhealing ulcers to the right lower extremity for more than a year now. She has been treated by several physicians including and Dr. Burrell for debridement of ulcerations. She presented to the emergency room with fever, chills and a very swollen right foot, but has gotten better since she has been on IV antibiotics. Currently, denying any history of fever, chills, nausea, or vomiting. PAST MEDICAL HISTORY: Remarkable for insulin-dependent diabetes x10 years, hypertension, hypercholesteremia. PAST SURGICAL HISTORY: Remarkable for amputation 4th toe right foot done in May, 3rd toe amputation left foot several years ago, splenectomy, cholecystectomy with hysterectomy. ALLERGIES: THE PATIENT DENIES. CURRENT MEDICATIONS: Note listed in chart including IV vancomycin and Rocephin. SOCIAL HISTORY: Denies any smoking, drinking, or recreational drug use. Lives with her . Has 4 kids. FAMILY HISTORY: Remarkable for diabetes. Both parents . REVIEW OF SYSTEMS: CARDIAC: Denies any palpitations or arrhythmias. RESPIRATORY: Denies any shortness of breath or productive cough. GASTROINTESTINAL: Denies any diarrhea or constipation. LABORATORY DATA: Noted, has a white blood cell count dropping from 22.2 to 18.4, hemoglobin of 6.3, platelet count of 539.Blood glucose of 245. PHYSICAL EXAMINATION: VITAL SIGNS: Afebrile. Pulse rate 86, respirations 16, blood pressure 147/62, O2 saturation 96%. Podiatric physical examination reveals the following: VASCULATURE: Pedal pulses of both the DP and PT seem to be palpable. Skin temperature warm to touch. NEUROLOGICAL: Reveals loss of protective sensation when utilizing [place]-Tavo 5.07 monofilament wire. MUSCULOSKELETAL: Muscle mass to be asymmetrical, some swelling noted to the right foot when compared to the left. Some drainage, but negative foul smell, very swollen right foot when compared to the left. Muscle strength is 4 to 5/5 to all muscle groups. DERMATOLOGICAL: Grade 3 ulceration plantar aspect right foot very close to bone and tendon measuring 3 to 3.5 cm in diameter. Has grade 3 ulceration also plantar aspect 5th metatarsal head right foot measuring 2 to 2.5 cm in diameter. X-rays were taken revealing no gas in the tissue, questionable for osteomyelitis. ASSESSMENT: Grade 3 ulcerations, possible osteo with diabetic neuropathy with cellulitis. PLAN: We will continue IV antibiotics. We will start Bactroban ointment followed by diluted wet-to-dry Betadine. MRI was ordered. We will continue to treat conservatively. The patient understands if not responsive, possible amputation may need to be done in the near future. JOSEF Carbajal/DEQUANL /[id number]
[2020-01-17] MEDS ORDERED: VANCOMYCIN 1GM/NS 250 ML 250 ML IV SCH (10:00)
--- NOTE | 2020-01-17 10:13 | Diagnostic Imaging Report ---
TECHNIQUE: Magnetic resonance imaging of the right foot was performed WITHOUT injected contrast. HISTORY: foot pain, evaluate infection COMPARISON: None available. DISCUSSION: Soft tissue ulceration of the medial aspect of the forefoot. Abscess in the plantar soft tissues of the forefoot extending approximately 3.3 cm and 1.5 x 1 cm in axial dimension. The flexor hallucis longus tendon is torn and retracted proximally with infectious tenosynovitis extending along its course from the distal phalangeal insertion to the retracted tendon which extends overall approximately 9 cm with maximal axial dimension of 1.3 x 1 cm. Bone marrow edema and T1 replacement involving the phalanges and the entirety of the first metatarsal. Additional soft tissue ulceration of the lateral forefoot focus of marrow edema and transverse T1 signal change at the fifth metacarpal neck. Scattered degenerative change at the tarsometatarsal articulations. Posttraumatic deformity of the third proximal phalanx. Lateral subluxation and angulation of the second and third proximal phalanges. IMPRESSION: Osteomyelitis of the phalanges and entire metatarsal of the hallux. Plantar soft tissue abscess and torn/retracted flexor hallucis longus tendon with infectious tenosynovitis. Likely subacute transverse fracture of the fifth metatarsal neck. Superimposed osteomyelitis evaluation is limited. Signed by: Dr. Pradeep Elizabeth M.D. on 01/17/2020 10:10 AM
[2020-01-17] MEDS: INSULIN LISPRO 100 UNIT/1 ML 3ML VIAL SQ SCH ×5 (11:30→21:00)
--- NOTE | 2020-01-17 11:54 | NUR ---
per blood bank, blood products are not yet available for patient. [facility] has picked up specimens. blood bank will notify RN when units are ready to cloth picker and administer to patient.
[2020-01-17] MEDS: DULOXETINE HCL 30 MG DELAYED RELEASE PO SCH ×2 (12:00→20:28)
[2020-01-17] MEDS: FLUTICASONE/SALMETEROL 115/21 12 GM AERO IH SCH ×2 (12:00→19:40)
[2020-01-17] MEDS: FAMOTIDINE 20 MG TAB PO SCH ×2 (12:38→16:33)
[2020-01-17] MEDS: MEROPENEM 1GM 100 ML IV SCH (12:38)
[2020-01-17] MEDS: ASPIRIN 81 MG ENTERIC COATED PO SCH (12:38)
[2020-01-17] MEDS: CARVEDILOL 12.5 MG TAB PO SCH ×2 (12:38→20:27)
[2020-01-17] MEDS: PREGABALIN 75 MG CAP PO SCH ×2 (12:39→20:28)
[2020-01-17] MEDS: BACLOFEN 10 MG TAB PO SCH ×2 (12:39→20:28)
--- NOTE | 2020-01-17 13:44 | NUR ---
bactroban wet to dry dressing applied to patients right foot.
--- NOTE | 2020-01-17 14:58 | History and Physical ---
The patient initiated on antibiotics in the emergency room. The patient was seen with the ER physician CHIEF COMPLAINT: Increasing shortness of breath. Right foot abscess, infected diabetic foot ulcer, required antibiotics and most likely podiatric surgical intervention. HISTORY OF PRESENT ILLNESS: The patient is 59 years old female with right foot toe open wound ulcer, diabetic ulcer infected. She also has a small ulcer in the plantar surface of the foot. She has been on antibiotics for the past two weeks. The patient stated that the right foot swelling significantly pus 24 to 48 hours on the bottom of the greater toe with increase in abscess formation associated with redness surrounding, which brought the patient into the hospital. Again, the patient has been on outpatient antibiotic, did not improve. The patient is now admitted to the hospital for further treatment. She has also complained of increasing shortness of breath and fever for one week. The patient is otherwise stable at this time. She is comfortable. A right IJ line was obtained in the emergency room for IV antibiotics. The patient's chest x-ray show atelectasis, but otherwise no consolidation. PAST MEDICAL HISTORY: Diabetes type 2, on insulin therapy, peripheral vascular disease, status post intervention of the lower extremity. Recurrent foot ulcer with both foot toe amputation. Chronic liver disease, chronic anemia, reflux, chronic kidney disease, chronic lower back pain, hypertension, diabetic neuropathy, recurrent diabetic ulcer of the lower extremity. Recurrent hospitalization due to infection. PAST SURGICAL HISTORY: Splenectomy. Cholecystectomy, hysterectomy. Left knee replacement. Amputation of left 3rd toe and right 4th toe. Multiple toe amputation. Multiple debridement of the diabetic infected ulcer. Vascular intervention angioplasty of the lower extremity. SOCIAL HISTORY: The patient does not smoke or use alcohol. No regular drugs. ALLERGIES: TO TRAMADOL AND LISINOPRIL. HOME MEDICATIONS: The patient is on: 1. Tylenol No. 3 p.r.n. 2. Aspirin. 3. Lipitor. 4. Baclofen. 5. Coreg. 6. Cymbalta. 7. Pepcid. 8. Advair Diskus. 9. Hydralazine. 10. NovoLog insulin. 11. Combivent Respimat. 12. Levaquin. 13. Metronidazole. 14. Omeprazole. 15. Pantoprazole. 16. Actos. 17. Lyrica. 18. Requip. 19. Temazepam. 20. Torsemide. 21. Trazodone. 22. Valsartan. PHYSICAL EXAMINATION: VITAL SIGNS: Temperature is 99.9, blood pressure 117/50, pulse rate 78, respirations 20. GENERAL: The patient is awake, alert. She is not in distress. HEENT: Normocephalic, atraumatic. She is anicteric. NECK: Supple grossly. PULMONARY: Diminished breath sounds without any wheezing. There are some possible courses at the bases. CARDIOVASCULAR: S1, S2. Regular rate and rhythm. ABDOMEN: Soft. EXTREMITIES: Right foot abscess with pus underneath the plantar surface. Right greater toe chronic diabetic ulcer with infection. There is also a left ulcer to the plantar surface as well. There is no edema. Pulses intact. NEUROLOGIC: The patient had diabetic neuropathy without any focal deficit. [place]ATORY [place]: [place] [address], hemoglobin 6.3, hematocrit 20.3, and platelets of 624. Chemistry; sodium is 130, potassium 4.6, chloride 95, bicarb 18, BUN is 23, creatinine 2.2, and glucose is 261. Creatine kinase is 311. Troponin 0.02. Urinalysis; 20 WBC, positive glucose. Rare bacteria. Serology; coronavirus PCR pending. IMAGING: Foot x-ray possible osteomyelitis of the greater toe. Diffuse soft tissue edema, plantar forefoot on the right. Chest x-ray, atelectasis versus infiltrate in the bibasilar area. IMPRESSION: 1. Right foot infected diabetic foot ulcers, multiple area. 2. Right foot abscess. 3. Sepsis without shock on admission with lactic acid of 2.2. 4. Chronic kidney disease. 5. Leukocytosis from the above. 6. Uncontrolled diabetes, most likely. 7. Chronic peripheral vascular disease. 8. Chronic anemia. PLAN: Transfuse the patient 2 units pending post surgical intervention of the right foot. Consultation with Dr. Ramin Quiroga for incision and drainage of the right foot. IV antibiotics. Consultation with Dr. Mckeon, Infectious Disease. Consult Nephrology for chronic kidney disease. Insulin sliding scale coverage. Check for stool for occult blood. May need GI consultation pending on further workup. Iron profile, B12, folic acid. Plan for hemoglobin A1c, TSH. We will monitor the patient closely. MD KALEB Langston/MODL /[id number]
[2020-01-17] MEDS: ACETAMINOPHEN/CODEINE 300MG - 30MG TAB PO PRN (16:33)
[2020-01-17] MEDS ORDERED: DIPHENHYDRAMINE HCL 25 MG CAP ONE (17:20)
--- NOTE | 2020-01-17 17:20 | NUR ---
blood bank called. 2 units here for patient.
[2020-01-17] MEDS ORDERED: SODIUM CHLORIDE 0.9% 250ML 250 ML ONE (17:26)
--- NOTE | 2020-01-17 17:30 | NUR ---
blood transfusion started.
--- NOTE | 2020-01-17 18:39 | Consultation ---
DATE OF CONSULTATION: REASON FOR CONSULTATION: Osteomyelitis of the foot. HISTORY OF PRESENT ILLNESS: This patient who is a very pleasant 59-year-old female with history of diabetes mellitus, neuropathy, atherosclerotic heart disease, and peripheral vascular disease. She has been having foot infection on the right foot for some time. She has been seen by Dr. Burrell. She did have callus initially. She had multiple debridement, but for insurance reasons, she was not able to follow up with her. She followed up with a different Podiatry. The patient is coming with redness and swelling of her foot mainly the big toe. The patient is being admitted. Podiatry here, Dr. Quiroga saw the patient. The patient is currently lying in bed comfortably. PAST MEDICAL HISTORY: Diabetes mellitus on insulin for 10 years, hypertension, hypercholesteremia, atherosclerotic heart disease, peripheral vascular disease, amputation of the 4th toe done in May, 3rd toe amputation of the left foot several years ago, splenectomy, cholecystectomy, and hysterectomy. ALLERGIES: NKA. SOCIAL HISTORY: There is no smoking, drug abuse, or alcohol abuse. FAMILY HISTORY: Unremarkable. FAMILY HISTORY: Diabetes mellitus. LABORATORY DATA: White count when she first came was 22.2, hemoglobin 7.6, today 6.3. Her sodium 134, potassium 3.9, creatinine 1.83, and the patient had a MRI of the foot, which showed osteomyelitis of the entire metatarsal, the hallux, plantar superficial abscess. PHYSICAL EXAMINATION: GENERAL: She is currently alert, oriented. VITAL SIGNS: Stable, currently afebrile. HEENT: She is not icteric. NECK: Supple. CHEST: Crackles bilateral. HEART: S1-S2. ABDOMEN: Soft. Bowel sounds present. EXTREMITIES: No edema. The foot has redness and swelling noted at big toe. IMPRESSION: 1. Abscess, osteomyelitis of the right foot, failing antibiotic. 2. Diabetes mellitus. 3. Neuropathy. 4. Peripheral vascular disease. 5. Chronic kidney disease. She is currently on meropenem. Recommend incision and drainage. She may end up with amputation. We will send intraoperative cultures. Further recommendations pending intraoperative cultures. We will discuss with Podiatry. Further recommendations to follow. MD REGGIE Bangura/JONATHAN /[id number]
[2020-01-17] MEDS: INSULIN GLARGINE 100 UNITS/ML VIAL SQ SCH (20:26)
[2020-01-17] MEDS: ROPINIROLE HCL 1 MG TAB PO SCH (20:28)
[2020-01-17] MEDS: ATORVASTATIN 40 MG TAB PO SCH (20:28)
[2020-01-17] MEDS ORDERED: TEMAZEPAM 15 MG CAP PO PRN (21:00)
[2020-01-17] MEDS ORDERED: NON-FORMULARY MEDICATION (Atorvastatin Calcium 40 MG) PO SCH (21:00)
[2020-01-17] MEDS ORDERED: TRAZODONE HCL 50 MG TAB PO SCH ×2 (21:00)
[2020-01-18] VITALS (7 sets, daily range): BP systolic 110–124; BP diastolic 50–61
[2020-01-18] MEDS: MUPIROCIN 2% OINT 22 GM TUBE TOP SCH ×3 (00:13→20:43)
[2020-01-18] MEDS: MEROPENEM 1GM 100 ML IV SCH ×3 (00:14→22:48)
[2020-01-18 04:38] LABS: BASOPHILS # (AUTO) 0.1 (0.0-0.1); BASOPHILS % 0.4 % (0.0-1.0); EOSINOPHILS # (AUTO) 0.3 (0.0-0.4); EOSINOPHILS % 1.7 % (0.0-6.0); HEMATOCRIT 25.5 % (34.2-44.1); HEMOGLOBIN 7.8 g/dL (12.0-16.0); LYMPHOCYTES # (AUTO) 2.9 (1.0-3.2); LYMPHOCYTES % 18.5 % (18.0-39.1); MEAN CORPUSCULAR HEMOGLOBIN 25.9 pg (28-32); MEAN CORPUSCULAR HGB CONC 30.6 g/dL (31-35); MEAN CORPUSCULAR VOLUME 84.7 fL (81-99); MONOCYTES # (AUTO) 1.4 (0.2-0.8); NEUTROPHILS % 69.6 % (38.7-80.0); PLATELET COUNT 531 x10e3/uL (140-360); RED BLOOD COUNT 3.01 x10e6/uL (3.6-5.1); RED CELL DISTRIBUTION WIDTH 14.2 % (11.7-14.4)
[2020-01-18 04:56] LABS: CHOL/HDL RATIO 12.4 (3.0-3.6)
[2020-01-18 04:59] LABS: ANION GAP 15.8 mmol/L (8-16); CALCIUM 8.4 mg/dL (8.4-10.2); CREATININE, SERUM 2.27 mg/dL (0.57-1.11); POTASSIUM 4.8 mmol/L (3.5-5.1)
[2020-01-18 05:16] LABS: THYROID STIMULATING HORMONE 1.379 uIU/mL (0.350-4.940)
[2020-01-18] MEDS: FLUTICASONE/SALMETEROL 115/21 12 GM AERO IH SCH ×2 (07:05→19:00)
[2020-01-18] MEDS: INSULIN LISPRO 100 UNIT/1 ML 3ML VIAL SQ SCH ×7 (07:30→21:22)
[2020-01-18] MEDS: FAMOTIDINE 20 MG TAB PO SCH ×2 (07:56→16:09)
--- NOTE | 2020-01-18 08:00 | NUR ---
patient with implanted glucose meter. blood sugar 222 per patient
[2020-01-18] MEDS: ASPIRIN 81 MG ENTERIC COATED PO SCH (08:02)
[2020-01-18] MEDS: PREGABALIN 75 MG CAP PO SCH (08:02)
[2020-01-18] MEDS: BACLOFEN 10 MG TAB PO SCH (08:02)
[2020-01-18] MEDS: CARVEDILOL 12.5 MG TAB PO SCH ×3 (08:02→21:00)
[2020-01-18] MEDS: DULOXETINE HCL 30 MG DELAYED RELEASE PO SCH ×3 (08:02→21:00)
[2020-01-18] MEDS: HYDRALAZINE HCL 25 MG TAB PO SCH ×4 (08:02→21:00)
--- NOTE | 2020-01-18 11:37 | Progress Note ---
DATE: 01/18/2020 SUBJECTIVE: The patient is seen at bedside. Denies any history of fever, chills, nausea, or vomiting. OBJECTIVE: VITAL SIGNS: Afebrile, pulse rate 69, respirations 20, blood pressure 110/61, and O2 saturation 99%. LABORATORY DATA: Labs show white blood cell continued to drop from a peak of 22.2 to 15.7, responding to IV antibiotics, ulceration looking a little bit better. MRI results were positive for osteomyelitis to the right great toe. ASSESSMENT: Multiple grade 3 ulcerations, osteomyelitis, right foot. PLAN: We will continue local wound care with IV antibiotics and diluted wet-to-dry Betadine and Bactroban ointment. The patient understands no warrantees or guarantees can be given. The patient will need at least 4-6 weeks of IV antibiotics and may end up with an amputation. We will repeat CBC today. JOSEF Carbajal/JONATHAN /[id number]
[2020-01-18] MEDS: SODIUM CHLORIDE 0.9% 1000ML 1,000 ML IV SCH ×2 (12:00→20:43)
[2020-01-18] MEDS: PANTOPRAZOLE SOD 40 MG TABEC PO SCH (12:00)
[2020-01-18] MEDS: IRON SUCROSE 100 MG in SODIUM CHLORIDE 0.9% 100 ML 100 ML IV SCH (12:11)
--- NOTE | 2020-01-18 12:27 | Consultation ---
DATE OF CONSULTATION: 01/18/2020 HISTORY OF PRESENT ILLNESS: A 59-year-old female who has been admitted for osteomyelitis of the right foot, has had a left BKA, severe peripheral vascular disease, diabetes with end-organ damage, diabetic retinopathy, neuropathy, peripheral vascular disease, as well as chronic kidney disease. The patient currently lying supine, in no apparent distress, looks a bit pale in appearance. When I asked what color stool she was having she has claims that she has been having black-colored stools. CURRENT MEDICATIONS: Meropenem 1 g IV q.12h. She is on Tylenol p.r.n., albuterol and Atrovent nebulizers, aspirin 81 mg daily, atorvastatin 40 mg at bedtime, baclofen 10 mg p.o. q.12h., carvedilol 25 mg q.12h., famotidine, Cymbalta 60 mg q.12h., Benadryl p.r.n., furosemide 20 mg one time dose, insulin sliding scale, hydralazine 50 mg p.o. t.i.d., insulin subcu, pantoprazole, mupirocin, promethazine p.r.n., and pregabalin/Lyrica 150 mg p.o. t.i.d. ALLERGIES: SHE IS ALLERGIC TO LISINOPRIL, TRAMADOL. SHE IS ALSO ON VALSARTAN AT HOME. LABORATORY DATA: Her laboratory tests show white count 15.7, hemoglobin 7.8. Chemistry shows sodium 136, potassium 4.8, bicarbonate 18, and creatinine 2.27, up from 1.83. Has a hemoglobin A1c 11.3. Vitamin B12 of 249. TSH 1.379. Iron T sat 9 with serum iron level of 13. SOCIAL HISTORY: Does not smoke or drink. FAMILY HISTORY: Significant for coronary artery disease, and diabetes. IMAGING DATA: X-ray chest is noted. PHYSICAL EXAMINATION: GENERAL: Awake, alert, and oriented x3, lying supine, in no apparent distress. VITAL SIGNS: Blood pressure 110/61, pulse 82, afebrile. HEAD AND NECK: Cornea clear. Oral mucosa moist. Neck veins are flat. LUNGS: Bibasilar rales. HEART: S1 and S2 audible. ABDOMEN: Soft, nontender. EXTREMITIES: Lower extremity examination shows left-sided BKA with right-sided missing toes. Dressing noted over the foot. IMPRESSION AND PLAN: Acute on chronic kidney failure. Agree with worsening kidney function on meropenem, noncompliant patient. Elevated hemoglobin A1c, evidence of high anion gap metabolic acidosis. Iron deficiency, must rule out GI bleed. I will start IV Venofer. Obtain stool guaiac. Start sodium bicarbonate p.o. Gentle hydration with normal saline. Hold baclofen because of worsening kidney function. Change Lyrica to 150 mg daily. Avoid NEGRO and ARB inhibitors of course she is allergic to Negro, but no ARB inhibitors right now. I will obtain urine studies in the form of urinalysis, spot urine protein-creatinine ratio. I will start sodium bicarbonate tablets. Kidney ultrasound to look for kidney size and echogenicity. Please see orders. MD NILTON Patton/JONATHAN /[id number]
[2020-01-18] MEDS: PROMETHAZINE 12.5MG/ NACL 0.9% 12.5 MG/50 ML BAG IV PRN (12:42)
--- NOTE | 2020-01-18 12:42 | Progress Note ---
DATE: CONSULTANTS: 1. Dr. Mckeon with Infectious Disease. 2. Dr. Quiroga, Podiatry. 3. Dr. Sutherland with Nephrology. SUBJECTIVE: The patient is seen resting in bed, reports right foot abscess is improving. Nausea and vomiting also improved. No fever. No chills. PHYSICAL EXAMINATION: VITAL SIGNS: Temperature 98.9, pulse is 69, respirations 20, blood pressure 110/67, and pulse ox 99% on room air. GENERAL: No acute distress. HEENT: Normocephalic and atraumatic. NECK: Supple. LUNGS: With decreased breath sounds. CARDIOVASCULAR: Regular rate and rhythm. S1 and S2 heard. ABDOMEN: Soft and nontender. MUSCULOSKELETAL: Moves all extremities. Right toe with multiple open ulcers and mild edema. NEUROLOGIC: Alert, awake, and oriented x3. LABORATORY DATA: WBC 15.75, hemoglobin 7.8, hematocrit 25.5, and platelets 531. Sodium 136, potassium 4.8, BUN 25, creatinine 2.27, estimated GFR 27, and glucose 288. Hemoglobin A1c 11.3. Triglycerides 228, LDL 68, and HDL 10. TSH is 1.379. COVID PCR is negative. Right foot MRI shows osteomyelitis of the phalanges and entire metatarsals after hallux, plantar soft tissue abscess and retracted flexor hallucis longus tendon with infectious sense of , likely subacute transverse fracture of the 5th metatarsal neck, superimposed osteomyelitis. Evaluation is limited. IMPRESSION: 1. Right foot ulcer with osteomyelitis of the metatarsal and hallux. Want Ad Clerk and ID has been consulted. Continue on Merrem per ID. 2. Leukocytosis due to the right foot abscess. 3. Chronic kidney disease. Nephrology has been consulted. We will continue to monitor closely. 4. Uncontrolled diabetes. Hemoglobin A1c is 11.3. We will continue with sliding scale insulin and lispro 10 units before each meal. We will add Lantus 20 units at bedtime. 5. Hypertension. We will resume home medications. 6. Chronic peripheral vascular disease. Aware. 7. Chronic anemia. Status post 2 units of PRBC transfusion. Hemoglobin is 7.8 and we will continue to monitor closely. 8. Deep vein thrombosis prophylaxis. SCDs due to anemia. PLAN: Continue wound care per Podiatry and antibiotics per ID. Dictated by Annie Jenkins, ANP MD ELTON Joe/JONATHAN /[id number]
--- NOTE | 2020-01-18 13:17 | Diagnostic Imaging Report ---
Renal ultrasound. History: Acute kidney injury. Comparison: 06/15/2019. Discussion: Transverse and longitudinal images of the kidneys were obtained demonstrating normal renal sizes and echogenicities. There is no evidence of hydronephrosis, mass, or renal calculus. The right kidney measures 10.6 cm and the left kidney measures 13.1 cm in length. Stable left inferior pole cyst measuring up to 1.2 cm. The urinary bladder is unremarkable with prevoid volume estimate of 428 cc. Ureteral jets are not visualized. There is no evidence of free fluid. IMPRESSION: 1. Negative for hydronephrosis, obstructing calculus or perinephric fluid collection. 2. Moderately distended urinary bladder. Ureteral jets are not visualized, nonspecific. Correlate with ability to urinate. Signed by: Phu Hall MD on 01/18/2020 1:14 PM
--- NOTE | 2020-01-18 14:33 | Progress Note ---
DATE: SUBJECTIVE: Ms. Gordon remains in intensive care unit. She just received a dose of Phenergan. She is lying in bed comfortably. She is alert and oriented earlier. Currently, she is sleeping. OBJECTIVE: VITAL SIGNS: Stable, afebrile, temperature 98.9, heart rate 69, and respiration 18. HEENT: She is not icteric. NECK: Supple. CHEST: Clear bilateral. HEART: S1 and S2. ABDOMEN: Soft. Bowel sounds present. EXTREMITIES: Right big toe, multiple open ulcers noted. LABORATORY DATA: White count 15.7, hemoglobin 7.8 with hematocrit 25. Her sodium 136. MRI shows osteomyelitis of the phalanges of entire metatarsal after hallux with abscess. IMPRESSION: Right foot infection, osteomyelitis, abscess. Recommend surgical debridement, send culture sensitivity; chronic kidney disease, diabetes mellitus, neuropathy, and peripheral vascular disease. She may end up with TMA if not [id number] amputation because of symptoms of peripheral vascular disease. She is currently on meropenem. Wound cultures are still pending showing gram-positive cocci. We will add vancomycin. We will add Zyvox. Anemia of chronic disease. MD REGGIE Bangura/JONATHAN /[id number]
--- NOTE | 2020-01-18 16:15 | NUR ---
informed [employer] [employer], patient with increased drowsiness and altered mental status, STAT labs ordered and MANAGER REGIONAL on unit at this time.
[2020-01-18 16:16] LABS: BASOPHILS # (AUTO) 0.1 (0.0-0.1); BASOPHILS % 0.3 % (0.0-1.0); EOSINOPHILS # (AUTO) 0.3 (0.0-0.4); EOSINOPHILS % 1.7 % (0.0-6.0); HEMATOCRIT 26.3 % (34.2-44.1); HEMOGLOBIN 8.2 g/dL (12.0-16.0); LYMPHOCYTES # (AUTO) 2.9 (1.0-3.2); LYMPHOCYTES % 15.5 % (18.0-39.1); MEAN CORPUSCULAR HEMOGLOBIN 25.7 pg (28-32); MEAN CORPUSCULAR HGB CONC 31.2 g/dL (31-35); MEAN CORPUSCULAR VOLUME 82.4 fL (81-99); MONOCYTES # (AUTO) 1.5 (0.2-0.8); MONOCYTES % 8.2 % (4.4-11.3); NEUTROPHILS # (AUTO) 13.8 (2.1-6.9); NEUTROPHILS % 73.4 % (38.7-80.0); PLATELET COUNT 608 x10e3/uL (140-360); RED BLOOD COUNT 3.19 x10e6/uL (3.6-5.1); RED CELL DISTRIBUTION WIDTH 14.4 % (11.7-14.4)
[2020-01-18 16:34] LABS: ANION GAP 17.8 mmol/L (8-16); CALCIUM 8.8 mg/dL (8.4-10.2); CREATININE, SERUM 2.34 mg/dL (0.57-1.11); POTASSIUM 4.8 mmol/L (3.5-5.1)
[2020-01-18] MEDS: LINEZOLID 600 MG TAB PO SCH (17:00)
[2020-01-18] MEDS: SODIUM BICARBONATE 650 MG TAB PO SCH (17:00)
[2020-01-18] MEDS: ATORVASTATIN 40 MG TAB PO SCH ×2 (20:43→21:00)
[2020-01-18] MEDS: ROPINIROLE HCL 1 MG TAB PO SCH ×2 (20:43→21:00)
[2020-01-18] MEDS: INSULIN GLARGINE 100 UNITS/ML VIAL SQ SCH (21:22)
[2020-01-19] VITALS (7 sets, daily range): BP systolic 122–169; BP diastolic 57–79
--- NOTE | 2020-01-19 00:37 | NUR ---
PATIENT HAS PROJECTILE VOMITED SEVERAL TIMES, PREVIOUS ORDER OF PHENERGAN WAS STOPPED DUE TO PT LETHARGY, CALLED DR ROBBINS AND PROVIDED LAB VALUES FOR PT RENAL FUNCTION AND ORDERED TO RESTART PHENERGAN IV MED PRIOR ORDERED AND TOLD FUTURE NAUSEA MED SHOULD BE VERIFIED THROUGH DR ROONEY DUE TO PT POOR RENAL FUNCTION. WILL CONT TO MONITOR. Addendum: 01/19/20 at 0622 by Sheree Kaminski RN ALSO ED OF PT URINARY RET AND NEED FOR ORDERED UA LABS AND NOTIFIED OF CORD[facility] PLACEMENT.
[2020-01-19] MEDS: PROMETHAZINE 12.5MG/ NACL 0.9% 12.5 MG/50 ML BAG IV PRN ×4 (00:40→20:25)
[2020-01-19 01:15] LABS: BILIRUBIN,URINE NEGATIVE (NEGATIVE); CLARITY,URINE SL CLOUDY (CLEAR); COLOR,URINE YELLOW (YELLOW); KETONES,URINE NEGATIVE (NEGATIVE); LEUKOCYTE ESTERASE ,URINE NEGATIVE (NEGATIVE); NITRITE,URINE NEGATIVE (NEGATIVE); PROTEIN,URINE DIPSTICK >=300 (NEGATIVE); URINE UROBILINOGEN 0.2 mg/dL (0.2 - 1)
[2020-01-19 01:23] LABS: AMORPHOUS SEDIMENT,URINE MANY (FEW); BACTERIA,URINE FEW /HPF; EPITHELIAL CELLS,URINE MODERATE /LPF; RBC,URINE 0-5 /HPF (0-5); WBC,URINE (MAN) 0-5 /HPF (0-5)
[2020-01-19 01:35] LABS: CREATININE,URINE RANDOM 156.31 mg/dL (47-110); TOTAL PROTEIN, URINE 161.6 mg/dL (1-14)
--- NOTE | 2020-01-19 02:47 | NUR ---
PATIENT STILL HAVING VOMITING EPISODES DESPITE PHENERGAN ADMINISTRATION CALLED DR ROBBINS AND UNABLE TO REACH, CALLED AND LEFT MESSAGE WITH DR ROONEY'S ANSWERING SERVICE DR ODELL SALES SERVICE EXECUTIVE FOR HIM. AWAITING CALL BACK.
[2020-01-19 03:30] LABS: BASOPHILS # (AUTO) 0.1 (0.0-0.1); BASOPHILS % 0.3 % (0.0-1.0); EOSINOPHILS # (AUTO) 0.3 (0.0-0.4); EOSINOPHILS % 1.2 % (0.0-6.0); HEMATOCRIT 26.3 % (34.2-44.1); HEMOGLOBIN 8.2 g/dL (12.0-16.0); LYMPHOCYTES # (AUTO) 3.1 (1.0-3.2); LYMPHOCYTES % 15.4 % (18.0-39.1); MEAN CORPUSCULAR HEMOGLOBIN 25.9 pg (28-32); MEAN CORPUSCULAR HGB CONC 31.2 g/dL (31-35); MEAN CORPUSCULAR VOLUME 83.2 fL (81-99); MONOCYTES # (AUTO) 1.6 (0.2-0.8); MONOCYTES % 7.7 % (4.4-11.3); NEUTROPHILS # (AUTO) 15.1 (2.1-6.9); NEUTROPHILS % 74.7 % (38.7-80.0); PLATELET COUNT 621 x10e3/uL (140-360); RED BLOOD COUNT 3.16 x10e6/uL (3.6-5.1); RED CELL DISTRIBUTION WIDTH 14.3 % (11.7-14.4)
[2020-01-19 03:47] LABS: ALBUMIN 3.2 g/dL (3.5-5.0)
[2020-01-19 03:52] LABS: ALBUMIN/GLOBULIN RATIO 0.7 (0.8-2.0); ANION GAP 19.8 mmol/L (8-16); CALCIUM 8.8 mg/dL (8.4-10.2); CREATININE, SERUM 2.08 mg/dL (0.57-1.11); POTASSIUM 4.8 mmol/L (3.5-5.1)
--- NOTE | 2020-01-19 05:18 | NUR ---
PATIENT IS STILL PROJECTILE VOMITING CALLED DR ROONEY'S OFFICE TO SEE ABOUT MEDICATION FOR NAUSEA DUE TO POOR RENAL FUNCTION DISCUSSED PRIOR. AWAITING CALL BACK, WILL CONT TO MONITOR.
--- NOTE | 2020-01-19 05:55 | NUR ---
CALLED DR ODELL, SUPERINTENDENT MAINTENANCE FOR DR ROONEY, AND NOTIFIED OF PT VOMITING AND ORDERED TO START SCHEDULED REGLAN 4MG Q6H AND ED ON CORDOVA CATH BEING PLACED DUE TO URINARY RETENTION AND PT UNABLE TO PROVIDE ORDERED LABS FOR DR ROONEY. DR ODELL ASKED IF GI WOULD BE PUT ON THE CASE DUE TO PT NAUSEA AND VOMITING AND ED THAT DR ROBBINS SAID HE WAS GOING TO HANDLE THAT WHEN HE SAW PT TODAY. WILL CONT TO MONITOR.
[2020-01-19] MEDS: PANTOPRAZOLE SOD 40 MG TABEC PO SCH (06:00)
--- NOTE | 2020-01-19 06:05 | NUR ---
CALLED DR ROBBINS TO UPDATE ON DR ODELL'S ORDERS AND PT STATUS WELL HAVE THE PT PROTONIX AND PEPCID CHANGED TO IV DUE TO PT NOT BEING ABLE TO HOLD ANYTHING DOWN AT THIS POINT AND COMPLETED DR ROBBINS ALSO STATES AGAIN HE WILL CONSULT GI DURING VISIT WITH PT TODAY. WILL CONT TO MONITOR.
[2020-01-19] MEDS: SODIUM CHLORIDE 0.9% 1000ML 1,000 ML IV SCH (06:13)
[2020-01-19] MEDS: METOCLOPRAMIDE HCL 10 MG/2ML VIAL IV SCH ×3 (06:13→17:56)
[2020-01-19] MEDS: INSULIN LISPRO 100 UNIT/1 ML 3ML VIAL SQ SCH ×7 (07:30→21:00)
[2020-01-19] MEDS: FLUTICASONE/SALMETEROL 115/21 12 GM AERO IH SCH ×2 (08:30→18:50)
[2020-01-19] MEDS ORDERED: PREGABALIN 75 MG CAP PO SCH ×2 (09:00→10:30)
[2020-01-19] MEDS ORDERED: PANTOPRAZOLE 40 MG 10ML VIAL IV SCH (09:00)
--- NOTE | 2020-01-19 09:06 | Progress Note ---
DATE: 01/19/2020 SUBJECTIVE: The patient is seen at bedside. Denies any history of fever, chills, nausea, vomiting. Relates she feels better. OBJECTIVE: VITAL SIGNS: Temperature 99.2, pulse rate 70, respiration 12, blood pressure 159/79, O2 saturation 96%. LABORATORY DATA: Labs show white blood cell count increasing to 20.2, right foot looks better. It is still cellulitic. Some drainage noted to the plantar aspect of the right ulceration with negative foul smell. ASSESSMENT: Osteomyelitis with cellulitis with diabetic neuropathy. PLAN: We will continue local wound care. The patient instructed if not any better within a couple days, foot will need to be I and D and possible partial resection of bone may need to be done. The patient wants to be treated conservatively for now. JOSEF Carbajal/JONATHAN /[id number]
[2020-01-19] MEDS: FAMOTIDINE 20 MG/2 ML VIAL IV SCH ×2 (10:09→20:31)
[2020-01-19] MEDS: SODIUM BICARBONATE 650 MG TAB PO SCH ×4 (10:09→21:40)
[2020-01-19] MEDS: DULOXETINE HCL 30 MG DELAYED RELEASE PO SCH ×2 (10:10→21:00)
[2020-01-19] MEDS: ASPIRIN 81 MG ENTERIC COATED PO SCH (10:10)
[2020-01-19] MEDS: CARVEDILOL 12.5 MG TAB PO SCH ×2 (10:11→21:38)
[2020-01-19] MEDS: HYDRALAZINE HCL 25 MG TAB PO SCH ×3 (10:12→21:40)
[2020-01-19] MEDS: LINEZOLID 600 MG TAB PO SCH ×2 (10:12→17:54)
[2020-01-19] MEDS: MUPIROCIN 2% OINT 22 GM TUBE TOP SCH ×2 (10:30→21:00)
[2020-01-19] MEDS ORDERED: SODIUM CHLORIDE 0.9% 1000ML 1,000 ML IV SCH (11:00)
[2020-01-19] MEDS: AMLODIPINE BESYLATE 10 MG TAB PO SCH (11:47)
[2020-01-19] MEDS: IRON SUCROSE 100 MG in SODIUM CHLORIDE 0.9% 100 ML 100 ML IV SCH (11:50)
[2020-01-19] MEDS: MEROPENEM 1GM 100 ML IV SCH (13:06)
[2020-01-19] MEDS ORDERED: LIDOCAINE HCL 1% LOCAL INJ 20 ML VIAL INJ STA (13:34)
--- NOTE | 2020-01-19 14:22 | Progress Note ---
DATE: 01/19/2020 CONSULTANTS: 1. Dr. Mckeon, Infectious Disease. 2. Dr. Quiroga, Podiatry. 3. Dr. Sutherland, Nephrology. 4. Dr. Avilez, GI. SUBJECTIVE: The patient is with increased nausea and vomiting, she is also lethargic. No fever or chills. No complaints of chest pain or abdominal pain. PHYSICAL EXAMINATION: VITAL SIGNS: Temperature 98.6, pulse is 74, respirations 14, blood pressure 151/91, pulse ox is 97% on room air. GENERAL: Lethargic. HEENT: Normocephalic, atraumatic. NECK: Supple. LUNGS: With decreased breath sounds. CARDIOVASCULAR: Regular rate and rhythm. ABDOMEN: Soft and nontender. MUSCULOSKELETAL: Moves all extremities, right foot ulcer. NEUROLOGIC: Alert, awake, oriented x3, but sleepy. PSYCH: Calm. LABORATORY DATA: WBC 20.29, hemoglobin 8.2, hematocrit 26.3, and platelets 621. Sodium 142, potassium 4.8, BUN 27, and creatinine 2.08. AST 35, ALT 24, alkaline phosphate 264, and albumin 3.2. Wound culture shows Streptococcus species. Blood culture negative so far. Urine culture, pending. IMPRESSION: 1. Right foot ulcer with osteomyelitis of the metatarsal and hallux. Continue Merrem and Zyvox per ID. Podiatry is on the case. 2. Leukocytosis. WBC 20.29. Afebrile, we will continue to monitor. ID on the case. 3. Chronic kidney disease. Creatinine is 2.08. Renal on the case. 4. Uncontrolled diabetes. Hemoglobin A1c is 11.3. We will continue on sliding scale and Lantus at bedtime. 5. Hypertension. We will resume home medication. Hydralazine IV p.r.n. 6. Chronic peripheral vascular disease. Aware. 7. Chronic anemia. Status post 2 units of PRBC. Hemoglobin is stable. 8. Intractable nausea and vomiting, not improving with Phenergan. We will consult GI for further evaluation. 9. Deep vein thrombosis prophylaxis. SCDs due to anemia. PLAN: To continue wound care, antibiotics per ID. GI for evaluation of nausea, vomiting. Dictated by JUANIS Thakkar Yiching MD ELTON Ivan/JONATHAN /[id number]
--- NOTE | 2020-01-19 15:29 | Progress Note ---
DATE: SUBJECTIVE: Ms. Gordon is doing well. There are no new complaints. REVIEW OF SYSTEMS: Otherwise negative. PHYSICAL EXAMINATION: GENERAL: Currently alert, oriented. VITAL SIGNS: Stable, afebrile. HEENT: She is not icteric. NECK: Supple. CHEST: Clear bilateral. HEART: S1, S2. ABDOMEN: Soft. Bowel sounds present. EXTREMITIES: No edema. IMPRESSION: 1. Osteomyelitis of the foot, recommend debridement. Discussed with the patient. We will discuss with Podiatry. 2. Anemia, per Internal Medicine. 3. Elevated white count, seems to be worse today. 4. Chronic kidney disease, the patient is currently on meropenem and Zyvox. We will discuss with Podiatry. Recheck CBC in the morning. MD REGGIE Bangura/JONATHAN /[id number]
--- NOTE | 2020-01-19 19:50 | NUR ---
Ramin Arauz in room with pt., doing an I&D to pt. R foot.
--- NOTE | 2020-01-19 19:50 | NUR ---
Pt. resting quietly. Respirations are even and unlabored. Triple lumen saline lock to her R jugular is patent and intact. Dressing on her R foot is clean,dry,intact. Vera catheter is patent and intact draining clear yellow urine.
[2020-01-19] MEDS ORDERED: MORPHINE SULFATE INJ 4 MG/ML INJ 1ML IV PRN (21:15)
--- NOTE | 2020-01-19 21:15 | Progress Note ---
DATE: 01/19/2020 SUBJECTIVE: The patient at bedside, having a little fever and chills. Right foot getting a little bit bigger and more swollen. OBJECTIVE: VITAL SIGNS: Afebrile, pulse rate 86, respirations 20, blood pressure 169/73, O2 saturation of 99%. LABORATORY DATA: Labs show white blood cell count of 20.2. Hemoglobin 8.2, hematocrit 26.3 with a platelet count of 621. Blood glucose of 142. Has a grade 3 ulceration, very close to bone to the plantar aspect of right foot. Right great toe measuring 2.5 to 3 cm in diameter, has cellulitis with edema surrounding the 1st MPJ with some fluctuance felt and increasing skin temperature. Pedal pulses are palpable, but diminished. ASSESSMENT: Abscess, deep surrounding the 1st MPJ with a grade 3 ulceration right great toe. PLAN: After proper consent of the patient and with the patient's on the phone under local anesthesia, deep I and D of abscesses, multiple areas of the right foot were performed. Incisions were made, measuring approximately 2 to 3 cm in diameter x3. Two dorsally surrounding the 1st MPJ, one plantar medially to drain the pus. Deep cultures were taken for aerobic and anaerobic growth. Infection tracked to the bone and some bone was also debrided via sharp tight debridement. The ulceration was also debrided down to muscle, very close to bone. Devitalized tissue sharply excised until good viable bleeding tissue was achieved. Sterile dressing was then applied with diluted wet-to-dry Betadine. The patient and the patient's understand that further surgery may be needed even including a possible amputation if not responsive to conservative care. We will continue IV antibiotics. CBC with diff will be reordered for 6:[address] Burrell will take over as of Friday. The patient tolerated both the anesthesia and procedure and approximately 3 to 4 mL apparent drain was drained and the incision was carried down to bone via 3 different incision sites. JOSEF Carbajal/JONATHAN /[id number]
[2020-01-19] MEDS: ATORVASTATIN 40 MG TAB PO SCH (21:39)
[2020-01-19] MEDS: ROPINIROLE HCL 1 MG TAB PO SCH (21:40)
[2020-01-19] MEDS: INSULIN GLARGINE 100 UNITS/ML VIAL SQ SCH (21:49)
[2020-01-19] MEDS ORDERED: CYANOCOBALAMIN INJ 1,000 MCG/ML VIAL IM ONE (23:45)
[2020-01-20] VITALS (8 sets, daily range): BP systolic 131–153; BP diastolic 61–78
[2020-01-20] MEDS: PANTOPRAZOLE 40 MG 10ML VIAL IV SCH ×2 (00:38→13:05)
[2020-01-20] MEDS: MEROPENEM 1GM 100 ML IV SCH ×2 (00:38→11:57)
[2020-01-20] MEDS: METOCLOPRAMIDE HCL 10 MG/2ML VIAL IV SCH ×4 (00:39→18:46)
--- NOTE | 2020-01-20 01:30 | NUR ---
Changed dressing to pt. R foot as per MD order.
[2020-01-20 06:10] LABS: BASOPHILS # (AUTO) 0.1 (0.0-0.1); BASOPHILS % 0.5 % (0.0-1.0); EOSINOPHILS # (AUTO) 0.1 (0.0-0.4); EOSINOPHILS % 0.8 % (0.0-6.0); HEMATOCRIT 25.4 % (34.2-44.1); HEMOGLOBIN 8.1 g/dL (12.0-16.0); LYMPHOCYTES # (AUTO) 2.6 (1.0-3.2); MEAN CORPUSCULAR HEMOGLOBIN 26.1 pg (28-32); MEAN CORPUSCULAR HGB CONC 31.9 g/dL (31-35); MEAN CORPUSCULAR VOLUME 81.9 fL (81-99); MONOCYTES # (AUTO) 1.3 (0.2-0.8); MONOCYTES % 7.6 % (4.4-11.3); NEUTROPHILS # (AUTO) 12.3 (2.1-6.9); NEUTROPHILS % 74.1 % (38.7-80.0); PLATELET COUNT 653 x10e3/uL (140-360); RED CELL DISTRIBUTION WIDTH 14.3 % (11.7-14.4)
[2020-01-20] MEDS: FLUTICASONE/SALMETEROL 115/21 12 GM AERO IH SCH ×2 (07:15→19:05)
[2020-01-20] MEDS: INSULIN LISPRO 100 UNIT/1 ML 3ML VIAL SQ SCH ×7 (07:30→21:00)
--- NOTE | 2020-01-20 08:27 | Progress Note ---
DATE: 01/20/2020 SUBJECTIVE: The patient doing significantly better. Decreased pain to the right lower extremity. Denying any history of fever, chills, nausea, or vomiting. OBJECTIVE: VITAL SIGNS: Afebrile, pulse rate 78, respirations 18, blood pressure 153/73, O2 saturation 96%. LABORATORY DATA: Labs show white blood cell dropping from a peak of 20.29 to 16.5, hemoglobin 8.1, decreased cellulitis of the right lower extremity, still some drainage, but negative foul smell. ASSESSMENT: Osteomyelitis with grade 3/4 ulceration right great toe with cellulitis, diabetic neuropathy. PLAN: We will continue IV antibiotics. Awaiting culture and sensitivity reports. Dr. Burrell will take over on this patient. JOSEF Carbajal/JONATHAN /[id number]
[2020-01-20] MEDS: ASPIRIN 81 MG ENTERIC COATED PO SCH (08:28)
[2020-01-20] MEDS: CYANOCOBALAMIN INJ 1,000 MCG/ML VIAL IM SCH (08:33)
[2020-01-20] MEDS: HYDRALAZINE HCL 25 MG TAB PO SCH ×3 (08:33→21:57)
[2020-01-20] MEDS: CARVEDILOL 12.5 MG TAB PO SCH ×2 (08:34→21:58)
[2020-01-20] MEDS: DULOXETINE HCL 30 MG DELAYED RELEASE PO SCH ×3 (08:34→21:00)
[2020-01-20] MEDS: AMLODIPINE BESYLATE 10 MG TAB PO SCH (08:34)
[2020-01-20] MEDS: LINEZOLID 600 MG TAB PO SCH ×2 (08:35→17:55)
[2020-01-20] MEDS: SODIUM BICARBONATE 650 MG TAB PO SCH ×3 (08:35→21:59)
[2020-01-20] MEDS: FAMOTIDINE 20 MG/2 ML VIAL IV SCH ×2 (08:35→19:52)
[2020-01-20] MEDS: PROMETHAZINE 12.5MG/ NACL 0.9% 12.5 MG/50 ML BAG IV PRN ×2 (08:57→20:50)
[2020-01-20 08:58] LABS: ANION GAP 16.4 mmol/L (8-16); CALCIUM 8.8 mg/dL (8.4-10.2); CREATININE, SERUM 1.67 mg/dL (0.57-1.11); POTASSIUM 4.4 mmol/L (3.5-5.1)
[2020-01-20] MEDS: IRON SUCROSE 100 MG in SODIUM CHLORIDE 0.9% 100 ML 100 ML IV SCH (11:15)
[2020-01-20] MEDS: MUPIROCIN 2% OINT 22 GM TUBE TOP SCH ×2 (13:03→23:15)
--- NOTE | 2020-01-20 13:05 | Diagnostic Imaging Report ---
Abdominal ultrasound. History: Nausea and vomiting. Comparison: Renal ultrasound 01/18/2020. Discussion: Transverse and longitudinal images of the abdomen were obtained demonstrating heterogeneous echogenicity of the liver with slight nodularity of the liver surface contour, with the liver measuring 17.4 cm in length. There is no focal hepatic lesion. The portal vein is patent with hepatopetal flow and is within normal limits measuring 11 mm in diameter. The biliary tree is within normal limits with the common bile duct measuring 5 mm in diameter. The gallbladder is absent. The kidneys are normal in size and echogenicity bilaterally without evidence of hydronephrosis, stones, or mass. An oval anechoic structure is present in the left renal lower pole measuring 1.7 x 1.3 cm. The right kidney measures 11.6 cm and the left kidney measures 10.8 cm in length. The spleen is absent. The pancreatic head and body are visualized and are normal in appearance. The abdominal aorta and IVC are within normal limits. There is no evidence of free fluid. IMPRESSION: 1. Mild hepatomegaly with findings suggestive of cirrhosis, without focal hepatic abnormality. 2. Status post cholecystectomy and splenectomy. 3. Simple benign left renal cyst. Signed by: Phill Perez on 01/20/2020 1:01 PM
--- NOTE | 2020-01-20 14:23 | NUR ---
progress note doing ok no complaints ROS is neg vs nad HEENT not pale not icteric chest clear cor s1s2 abdomen soft ext no edema Osteomyelitis with grade 3/4 ulceration right great toe with cellulitis, diabetic neuropathy. severe peripheral vascular disease Continue IV antibiotic local care per podiatry she may still end up with amputation we will arrange 6 weeks of IV antibiotic and wound care
--- NOTE | 2020-01-20 14:24 | NUR ---
patient is growing Streptococcus can change to Rocephin 2 g daily 6 weeks
--- NOTE | 2020-01-20 19:30 | NUR ---
Dr. Foster in room with pt.
--- NOTE | 2020-01-20 19:54 | NUR ---
Pt. alert and oriented x3. Skin is warm and dry to touch. Respirations are even and unlabored. Dressing on her R foot is clean,dry, intact.
[2020-01-20] MEDS: ACETAMINOPHEN/CODEINE 300MG - 30MG TAB PO PRN (20:42)
[2020-01-20] MEDS: INSULIN GLARGINE 100 UNITS/ML VIAL SQ SCH (21:02)
[2020-01-20] MEDS: ROPINIROLE HCL 1 MG TAB PO SCH (21:59)
[2020-01-20] MEDS: ATORVASTATIN 40 MG TAB PO SCH (21:59)
--- NOTE | 2020-01-20 23:06 | Progress Note ---
DATE: 01/20/2020 CONSULTANTS: 1. Dr. Mckeon, Infectious Disease. 2. Dr. Quiroga, Podiatry. 3. Dr. Sutherland, Nephrology. 4. Dr. Avilez, GI. 5. Dr. Foster, Cardiology. SUBJECTIVE: The patient still with some nausea and vomiting, lethargy is improving. No fever or chills. No chest pain. She was scheduled for EGD, but rescheduled pending Cardiology clearance. PHYSICAL EXAMINATION: VITAL SIGNS: Temperature 98.4, pulse of 68, respirations 20, blood pressure 138/61, pulse ox is 94 on room air. GENERAL: Slightly lethargic. No acute distress. HEENT: Normocephalic and atraumatic. NECK: Supple. LUNGS: With decreased breath sounds. CARDIOVASCULAR: Regular rate and rhythm. ABDOMEN: Soft and nontender. MUSCULOSKELETAL: Moves all extremities. NEUROLOGIC: Alert, awake, and oriented x3, but lethargic and forgetful at times. PSYCH: Calm. SKIN: Right foot ulcer, status post debridement. LABORATORY DATA: WBC 16.54, hemoglobin 8.1, hematocrit 25.4, and platelets 653. Sodium 141, potassium 4.4, CO2 of 19, anion gap 16.4, BUN 25, creatinine 1.67, estimated GFR 38, blood glucose 195, calcium 8.8. Wound care shows Enterococcus faecalis, sensitive to Zyvox. IMPRESSION: 1. Right foot ulcer with osteomyelitis of the metatarsal and hallux. Continue Merrem and Zyvox per wound culture results. Podiatry and ID on the case. 2. Leukocytosis. WBC is 16.5, improving, afebrile, we will continue with Zyvox and Merrem per ID. 3. Chronic kidney disease stage 3. Creatinine is improved to 1.65. Fluids per Renal. 4. Uncontrolled diabetes. Hemoglobin A1c 11.3, continue sliding scale insulin and Lantus at bedtime. 5. Hypertension. Resume home medications, hydralazine IV p.r.n. 6. Intractable nausea and vomiting. GI has been consulted and pending Cardiology clearance to proceed EGD. 7. Chronic peripheral vascular disease. Aware. 8. Chronic anemia. Status post 2 units of PRBCs. Hemoglobin is 8.1 today. We will monitor closely. 9. Cirrhosis. 10. Deep vein thrombosis prophylaxis. SCDs due to anemia. PLAN: To continue wound care per Podiatry, antibiotics per ID. Cardiology has been consulted for cardiac clearance before an EGD. Dictated by JUANIS Thakkar Debiching MD ELTON Ivan/DEQUANL /[id number]
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
--- NOTE | 2020-01-20 23:30 | NUR ---
Changed pt. dressing on her R foot as per MD order. Applied diluted betadine wet to dry dressing.
[2020-01-21] VITALS (8 sets, daily range): BP systolic 117–155; BP diastolic 58–73
[2020-01-21] MEDS: PANTOPRAZOLE 40 MG 10ML VIAL IV SCH ×3 (00:12→23:50)
[2020-01-21] MEDS: MEROPENEM 1GM 100 ML IV SCH ×3 (00:36→23:50)
[2020-01-21] MEDS: METOCLOPRAMIDE HCL 10 MG/2ML VIAL IV SCH ×4 (00:36→21:00)
[2020-01-21] MEDS: PROMETHAZINE 12.5MG/ NACL 0.9% 12.5 MG/50 ML BAG IV PRN ×2 (04:06→21:10)
[2020-01-21 05:57] LABS: BASOPHILS # (AUTO) 0.1 (0.0-0.1); BASOPHILS % 0.6 % (0.0-1.0); EOSINOPHILS # (AUTO) 0.2 (0.0-0.4); EOSINOPHILS % 1.7 % (0.0-6.0); HEMATOCRIT 24.4 % (34.2-44.1); LYMPHOCYTES # (AUTO) 2.9 (1.0-3.2); LYMPHOCYTES % 22.8 % (18.0-39.1); MEAN CORPUSCULAR HEMOGLOBIN 25.7 pg (28-32); MEAN CORPUSCULAR HGB CONC 31.1 g/dL (31-35); MEAN CORPUSCULAR VOLUME 82.4 fL (81-99); MONOCYTES # (AUTO) 1.2 (0.2-0.8); MONOCYTES % 9.3 % (4.4-11.3); NEUTROPHILS # (AUTO) 8.2 (2.1-6.9); NEUTROPHILS % 64.5 % (38.7-80.0); PLATELET COUNT 678 x10e3/uL (140-360); RED BLOOD COUNT 2.96 x10e6/uL (3.6-5.1); RED CELL DISTRIBUTION WIDTH 14.5 % (11.7-14.4)
[2020-01-21 06:03] LABS: HEMOGLOBIN 7.6 g/dL (12.0-16.0)
[2020-01-21 06:23] LABS: ALBUMIN 3.1 g/dL (3.5-5.0); ALBUMIN/GLOBULIN RATIO 0.8 (0.8-2.0); CALCIUM 8.7 mg/dL (8.4-10.2); CHOL/HDL RATIO 5.8 (3.0-3.6); CREATININE, SERUM 1.62 mg/dL (0.57-1.11)
[2020-01-21 06:43] LABS: THYROID STIMULATING HORMONE 1.648 uIU/mL (0.350-4.940)
[2020-01-21 06:49] LABS: B-TYPE NATRIURETIC PEPTIDE2 107.8 pg/mL (0-100)
[2020-01-21] MEDS: FLUTICASONE/SALMETEROL 115/21 12 GM AERO IH SCH ×2 (07:55→19:00)
[2020-01-21] MEDS: CYANOCOBALAMIN INJ 1,000 MCG/ML VIAL IM SCH (08:27)
[2020-01-21] MEDS: SODIUM BICARBONATE 650 MG TAB PO SCH ×3 (08:27→21:00)
[2020-01-21] MEDS: MUPIROCIN 2% OINT 22 GM TUBE TOP SCH ×2 (08:27→21:00)
[2020-01-21] MEDS: ASPIRIN 81 MG ENTERIC COATED PO SCH (08:27)
[2020-01-21] MEDS: LINEZOLID 600 MG TAB PO SCH ×2 (08:27→17:14)
[2020-01-21] MEDS: FAMOTIDINE 20 MG/2 ML VIAL IV SCH ×2 (08:27→21:00)
[2020-01-21] MEDS: AMLODIPINE BESYLATE 10 MG TAB PO SCH (08:27)
[2020-01-21] MEDS: HYDRALAZINE HCL 25 MG TAB PO SCH ×3 (08:28→21:00)
[2020-01-21] MEDS: DULOXETINE HCL 30 MG DELAYED RELEASE PO SCH ×2 (08:28→21:00)
[2020-01-21] MEDS: CARVEDILOL 12.5 MG TAB PO SCH ×2 (08:28→21:00)
[2020-01-21] MEDS: INSULIN LISPRO 100 UNIT/1 ML 3ML VIAL SQ SCH ×7 (08:30→20:47)
[2020-01-21] MEDS: IRON SUCROSE 100 MG in SODIUM CHLORIDE 0.9% 100 ML 100 ML IV SCH (12:30)
--- NOTE | 2020-01-21 12:35 | NUR ---
Patient will benefit from a W/C and a BSC for home use. please clarify WB status for RLE via order. Addendum: 01/21/20 at 2243 by Prosper Multani PT Amended: Links added.
[2020-01-21] MEDS ORDERED: PROPOFOL IV EMULSION 10 MG/ML 20 ML VIAL ONE (14:12)
[2020-01-21] MEDS ORDERED: MIDAZOLAM HCL 2 MG/2 ML VIAL ONE (14:53)
[2020-01-21] MEDS ORDERED: FENTANYL CITRATE/PF 100MCG/2 ML INJ ONE (14:53)
--- NOTE | 2020-01-21 15:17 | NUR ---
Nutrition Screen Note RD Recommendation for Physician: -Recommend advancing to ADA diet when medically appropriate Plan of Care: RD following, monitoring for tolerance and adequacy Nutrition reason for involvement: length of stay Primary Diagnose(s): diabetic foot ulcer, severe sepsis PMH: Diabetes type 2, on insulin therapy, peripheral vascular disease,status post intervention of the lower extremity. Recurrent foot ulcer with both foot/toe amputation. Chronic liver disease, chronic anemia, reflux, chronic kidney disease,chronic lower back pain, hypertension, diabetic neuropathy, recurrent diabetic ulcer ofthe lower extremity. Recurrent hospitalization due to infection. Ht: 65 in Wt: 170 lb BMI: 28.3 kg/m2 IBW: [address] Assessment: (01/21/20) Chart reviewed. Labs and meds reviewed. Pt is a 59 year old female admitted with diabetic foot ulcer and severe sepsis. Attempted to speak to pt, but she was sleeping at time of visit. Pt is currently on a clear liquid diet. It is noted that pt had some N/V and an EGD is planned. Last recorded meal intake was 100% on 01/16. There are no reports of decreased appetite or recent unintentional weight loss per chart prior to admission. Pt weighed 172-184 lbs per last admission in July 2019. Will continue to monitor Current Diet: clear liquids Malnutrition Evaluation (01/21/20) The patient does not meet criteria for a specified degree of malnutrition at this time. Will re-evaluate at follow-up as appropriate. Diet Education Needs Assessment: RD is available for diet education as needed Nutrition Care Level: low Signed: Giovanna Talamantes, BRYSON, LD
--- NOTE | 2020-01-21 15:59 | Progress Note ---
DATE: 01/21/2020 CONSULTANTS: 1. Dr. Mckeon, Infectious Disease. 2. Dr. Quiroga, Podiatry. 3. Dr. Sutherland, Nephrology. 4. Dr. Avilez, GI. 5. Dr. Foster, Cardiology. SUBJECTIVE: The patient is sitting up in bed with complaints of nausea and vomiting. She is pending for EGD this afternoon. She denies any chest pain, shortness of breath, fever, or chills. She is still mildly lethargic. Cardiology has cleared her for an EGD. PHYSICAL EXAMINATION: VITAL SIGNS: Temperature 98.5, pulse is 74, respirations 17, blood pressure 141/64, and pulse ox is 97% on room air. GENERAL: No acute distress. HEENT: Normocephalic, atraumatic. NECK: Supple. LUNGS: Decreased breath sounds. CARDIOVASCULAR: Regular rate and rhythm. ABDOMEN: Soft and nontender. MUSCULOSKELETAL: Moves all extremities. NEUROLOGIC: Alert, awake, and oriented x3. Slightly sleepy and forgetful at times. PSYCH: Calm. SKIN: With right foot diabetic ulcer, status post debridement. LABORATORY DATA: WBC 12.76, hemoglobin 7.6, hematocrit 24.4, and platelet 678. Sodium 144, potassium 4.0, CO2 of 21, BUN 24, creatinine 1.62. Hemoglobin A1c 11.1. BNP 107. AST 19, ALT 18, alkaline phosphate 119, blood sugar 133, LDL 59, HDL 17, triglyceride 116. IMPRESSION: 1. Right foot diabetic ulcer with osteomyelitis. Continue Merrem and Zyvox per wound culture results. Podiatry and ID on the case. 2. Leukocytosis. WBC improving 12.7 today. Continue antibiotics per ID. 3. Chronic kidney disease. Creatinine is down to 1.6. 4. Uncontrolled diabetes. Hemoglobin A1c is 11.1. Continue sliding scale and Lantus at bedtime. 5. Hypertension. Resume medication. 6. Intractable nausea and vomiting. GI has been consulted. Scheduled for EGD today, has been cleared per Cardiology. 7. Chronic peripheral vascular disease. 8. Chronic anemia. Hemoglobin is 7.6 today. We will continue to monitor and transfuse if hemoglobin is less than 7. 9. Cirrhosis. 10. Deep vein thrombosis prophylaxis. SCDs due to anemia. PLAN: Continue current treatment, EGD per GI for intractable nausea. Dictated by Annie Jenkins, ANP MD ELTON Joe/JONATHAN /[id number]
[2020-01-21] MEDS ORDERED: METOCLOPRAMIDE HCL 10 MG/2ML VIAL IV SCH (18:00)
--- NOTE | 2020-01-21 18:35 | NUR ---
progress note Patient seen chart reviewed he patient is sitting up in bed with complaints of nausea and vomiting. She is pending for EGD this afternoon. She denies any chest pain, shortness of breath, fever, or chills. She is still mildly lethargic. Cardiology has cleared her for an EGD. PHYSICAL EXAMINATION: VITAL SIGNS: Temperature 98.5, pulse is 74, respirations 17, blood pressure 141/64, and pulse ox is 97% on room air. GENERAL: No acute distress. HEENT: Normocephalic, atraumatic. NECK: Supple. LUNGS: Decreased breath sounds. CARDIOVASCULAR: Regular rate and rhythm. ABDOMEN: Soft and nontender. MUSCULOSKELETAL: Moves all extremities. NEUROLOGIC: Alert, awake, and oriented x3. Slightly sleepy and forgetful at times. PSYCH: Calm. SKIN: With right foot diabetic ulcer, status post debridement. LABORATORY DATA: WBC 12.76, hemoglobin 7.6, hematocrit 24.4, and platelet 678. Sodium 144, potassium 4.0, CO2 of 21, BUN 24, creatinine 1.62. Hemoglobin A1c 11.1. BNP 107. AST 19, ALT 18, alkaline phosphate 119, blood sugar 133, LDL 59, HDL 17, triglyceride 116. IMPRESSION: 1. Right foot diabetic ulcer with osteomyelitis. Continue Merrem and Zyvox per wound culture results. We will modify after the cultures with me in 6 weeks of antibiotic 2. Leukocytosis. WBC improving 12.7 today. continue to monitor 3. Chronic kidney disease. Creatinine is down to 1.6. 4. Uncontrolled diabetes. Hemoglobin A1c is 11.1. Continue sliding scale and Lantus at bedtime. 5. Hypertension. Resume medication. 6. Intractable nausea and vomiting. GI has been consulted. Scheduled for EGD today, has been cleared per Cardiology. 7. Chronic peripheral vascular disease. 8. Chronic anemia. Hemoglobin is 7.6 today. We will continue to monitor and transfuse if hemoglobin is less than 7. 9. Cirrhosis. 10. Deep vein thrombosis prophylaxis. SCDs due to anemia
--- NOTE | 2020-01-21 20:22 | NUR ---
Patient arrived on the station via hospital bed as transfer from [facility] 199 to 208. Patient alert and oriented x3. On bedrest with right foot covered with dressing (C/D/I) and non-wt bearing per MD order. Bedside commode available for prn use. Instructed pt to call when needed to get up and out of bed prn. Pt denies pain or discomfort at this time. Will monitor pt closely. Call alonzo within reach.
[2020-01-21] MEDS: INSULIN GLARGINE 100 UNITS/ML VIAL SQ SCH (21:00)
[2020-01-21] MEDS: ROPINIROLE HCL 1 MG TAB PO SCH (21:00)
[2020-01-21] MEDS: ATORVASTATIN 40 MG TAB PO SCH (21:00)
[2020-01-21] MEDS ORDERED: SODIUM CHLORIDE 0.9% 50ML 50 ML ONE (21:06)
--- NOTE | 2020-01-21 23:00 | NUR ---
Dressing on right foot re-wrapped with gauze and kerlix. Bactroban ointment not available at this time but will be re-ordered from pharmacy in AM (01/22/20).
[2020-01-21] MEDS ORDERED: SODIUM CHLORIDE 0.9% 250ML 250 ML ONE (23:53)
[2020-01-22] VITALS (8 sets, daily range): BP systolic 128–168; BP diastolic 53–71
[2020-01-22] MEDS: MORPHINE SULFATE INJ 4 MG/ML INJ 1ML IV PRN ×4 (01:25→21:45)
[2020-01-22] MEDS: FLUTICASONE/SALMETEROL 115/21 12 GM AERO IH SCH ×2 (07:00→19:00)
--- NOTE | 2020-01-22 07:15 | NUR ---
received pt from previous shift. pt resting in bed. right foot drsg intact
[2020-01-22] MEDS: FAMOTIDINE 20 MG/2 ML VIAL IV SCH ×2 (08:00→21:30)
[2020-01-22] MEDS: METOCLOPRAMIDE HCL 10 MG/2ML VIAL IV SCH ×4 (08:00→21:30)
[2020-01-22] MEDS: PROMETHAZINE 12.5MG/ NACL 0.9% 12.5 MG/50 ML BAG IV PRN ×2 (08:00→21:45)
[2020-01-22] MEDS: INSULIN LISPRO 100 UNIT/1 ML 3ML VIAL SQ SCH ×7 (08:00→21:00)
[2020-01-22] MEDS: SODIUM BICARBONATE 650 MG TAB PO SCH ×3 (09:00→21:30)
[2020-01-22] MEDS: CARVEDILOL 12.5 MG TAB PO SCH ×2 (09:00→21:30)
[2020-01-22] MEDS: HYDRALAZINE HCL 25 MG TAB PO SCH ×3 (09:00→21:30)
[2020-01-22] MEDS: ASPIRIN 81 MG ENTERIC COATED PO SCH (09:00)
[2020-01-22] MEDS: LINEZOLID 600 MG TAB PO SCH (09:00)
[2020-01-22] MEDS: AMLODIPINE BESYLATE 10 MG TAB PO SCH (09:00)
[2020-01-22] MEDS: DULOXETINE HCL 30 MG DELAYED RELEASE PO SCH ×2 (09:00→21:00)
--- NOTE | 2020-01-22 10:35 | NUR ---
phy therapy at bedside
--- NOTE | 2020-01-22 10:55 | NUR ---
dr tax professional for dr mora notified pt has vomiting and unable to take scheduled po meds. orders to give iv meds until vomiting decreases
[2020-01-22] MEDS: CYANOCOBALAMIN INJ 1,000 MCG/ML VIAL IM SCH (11:27)
[2020-01-22] MEDS: PANTOPRAZOLE 40 MG 10ML VIAL IV SCH ×2 (11:45→23:04)
[2020-01-22] MEDS: HYDRALAZINE HCL 20 MG/ML VIAL IV PRN (11:46)
[2020-01-22] MEDS: IRON SUCROSE 100 MG in SODIUM CHLORIDE 0.9% 100 ML 100 ML IV SCH (13:00)
[2020-01-22] MEDS: MEROPENEM 1GM 100 ML IV SCH (13:33)
[2020-01-22] MEDS: MUPIROCIN 2% OINT 22 GM TUBE TOP SCH ×2 (14:00→21:00)
--- NOTE | 2020-01-22 14:15 | NUR ---
pt dressing changed to right great toe, cleaned with normal saline, bacotran ointment placed,wet to dry dressing placed and wrapped in kerlix
[2020-01-22] MEDS: CEFTRIAXONE SOD 2 GM/NS 100 ML 100 ML IV SCH (15:00)
--- NOTE | 2020-01-22 16:03 | Progress Note ---
DATE: 01/22/2020 CONSULTANTS: 1. Dr. Mckeon, Infectious Disease. 2. Dr. Quiroga, Podiatry. 3. Dr. Sutherland, Nephrology. 4. Dr. Avilez, GI. 5. Dr. Foster, Cardiology. SUBJECTIVE: The patient is still with complaints of nausea and vomiting this morning, unable to take her p.o. medications. Status post EGD yesterday, which showed esophagitis and gastritis. She denies any abdominal pain, fever, chills, or diarrhea. PHYSICAL EXAMINATION: VITAL SIGNS: Temperature 98.7, pulse is 66, respirations 18, blood pressure 156/70, and pulse ox is 98% on room air. GENERAL: No acute distress. HEENT: Normocephalic, atraumatic. LUNGS: Decreased breath sounds. CARDIOVASCULAR: Regular rate and rhythm. ABDOMEN: Soft and nontender. NEUROLOGIC: Alert, awake, and oriented x3. MUSCULOSKELETAL: Moves all extremities. Right lower extremity dressing is intact. PSYCH: Calm. LABORATORY DATA: None today. IMPRESSION: 1. Right foot diabetic ulcer with osteomyelitis. Merrem was discontinued and currently on Rocephin per Infectious Disease. Podiatry on the case. 2. Leukocytosis. Improving. We will continue on Rocephin per Infectious Disease. 3. Chronic kidney disease. Continue to monitor per Renal. 4. Uncontrolled diabetes. Hemoglobin A1c is 11.1. Continue sliding scale insulin and Lantus at bedtime. 5. Hypertension. May take p.o. when she tolerates, otherwise we will treat with hydralazine IV. 6. Intractable nausea and vomiting. Status post EGD yesterday, which showed esophagitis and gastritis. 7. Gastrointestinal on the case. Continue with Reglan and Phenergan as prescribed. 8. Chronic peripheral vascular disease. 9. Chronic anemia. Continue to monitor closely. 10. Cirrhosis. 11. Deep vein thrombosis prophylaxis. Sequential compression devices due to anemia. PLAN: To continue current treatment, and antiemetics p.r.n., we will repeat labs in a.m. Dictated by JUANIS Thakkar Debiching Pradeep Mcqueen MD MY/MODL /[id number]
--- NOTE | 2020-01-22 19:10 | NUR ---
Patient visited in room during nursing rounds. Patient alert and oriented x3. On bedrest with right foot covered with dressing (C/D/I) and non-wt bearing per MD order. Bedside commode available for prn use. Instructed pt to call when needed to get up and out of bed prn. Pt denies pain or discomfort at this time. Will monitor pt closely. Call alonzo within reach.
[2020-01-22] MEDS: INSULIN GLARGINE 100 UNITS/ML VIAL SQ SCH (21:00)
--- NOTE | 2020-01-22 21:00 | NUR ---
Patient refused new dressing change since last dressing change done late in the afternoon. Current dressing on right foot clean, dry and in place.
[2020-01-22] MEDS: ATORVASTATIN 40 MG TAB PO SCH (21:30)
[2020-01-22] MEDS: ROPINIROLE HCL 1 MG TAB PO SCH (21:30)
[2020-01-23] VITALS (9 sets, daily range): BP systolic 131–164; BP diastolic 59–78
--- NOTE | 2020-01-23 01:45 | NUR ---
Dr. Enzo Avilez came and visited pt in room. MD aware of patient's condition. MD ordered to increase dose of Reglan from 5mg to 10mg IV.
[2020-01-23 05:05] LABS: BASOPHILS # (AUTO) 0.1 (0.0-0.1); BASOPHILS % 0.5 % (0.0-1.0); EOSINOPHILS # (AUTO) 0.3 (0.0-0.4); EOSINOPHILS % 2.5 % (0.0-6.0); HEMATOCRIT 25.6 % (34.2-44.1); LYMPHOCYTES # (AUTO) 2.4 (1.0-3.2); LYMPHOCYTES % 21.3 % (18.0-39.1); MEAN CORPUSCULAR HEMOGLOBIN 25.9 pg (28-32); MEAN CORPUSCULAR HGB CONC 31.3 g/dL (31-35); MEAN CORPUSCULAR VOLUME 82.8 fL (81-99); MONOCYTES # (AUTO) 1.2 (0.2-0.8); MONOCYTES % 10.7 % (4.4-11.3); NEUTROPHILS # (AUTO) 7.3 (2.1-6.9); PLATELET COUNT 655 x10e3/uL (140-360); RED BLOOD COUNT 3.09 x10e6/uL (3.6-5.1); RED CELL DISTRIBUTION WIDTH 14.3 % (11.7-14.4)
[2020-01-23 05:30] LABS: ALBUMIN/GLOBULIN RATIO 0.8 (0.8-2.0); ANION GAP 16.6 mmol/L (8-16); CALCIUM 8.3 mg/dL (8.4-10.2); CREATININE, SERUM 1.54 mg/dL (0.57-1.11); POTASSIUM 3.6 mmol/L (3.5-5.1)
[2020-01-23] MEDS: MORPHINE SULFATE INJ 4 MG/ML INJ 1ML IV PRN ×2 (05:40→19:10)
[2020-01-23] MEDS: PROMETHAZINE 12.5MG/ NACL 0.9% 12.5 MG/50 ML BAG IV PRN ×2 (05:40→19:10)
[2020-01-23] MEDS: MUPIROCIN 2% OINT 22 GM TUBE TOP SCH ×3 (05:41→21:00)
--- NOTE | 2020-01-23 05:41 | NUR ---
right foot dressing changed via orders
[2020-01-23] MEDS: FLUTICASONE/SALMETEROL 115/21 12 GM AERO IH SCH ×2 (07:00→22:30)
--- NOTE | 2020-01-23 07:16 | NUR ---
PATIENT IN BED WITH HEAD OF BED ELEVATED TALKING ON THE PHONE, NO DISTRESS NOTED. DRESSING DRY AND INTACT TO RIGHT FOOT. BED BIN LOWER POSITION, CALL LIGHT AT REACH.
[2020-01-23] MEDS: FAMOTIDINE 20 MG/2 ML VIAL IV SCH ×2 (07:30→19:19)
[2020-01-23] MEDS: METOCLOPRAMIDE HCL 10 MG/2ML VIAL IV SCH ×4 (07:30→21:15)
[2020-01-23] MEDS: INSULIN LISPRO 100 UNIT/1 ML 3ML VIAL SQ SCH ×7 (07:30→21:00)
[2020-01-23] MEDS: CARVEDILOL 12.5 MG TAB PO SCH ×2 (09:00→21:15)
[2020-01-23] MEDS: HYDRALAZINE HCL 25 MG TAB PO SCH ×3 (09:06→21:15)
[2020-01-23] MEDS: ASPIRIN 81 MG ENTERIC COATED PO SCH (09:06)
[2020-01-23] MEDS: CYANOCOBALAMIN INJ 1,000 MCG/ML VIAL IM SCH (09:06)
[2020-01-23] MEDS: AMLODIPINE BESYLATE 10 MG TAB PO SCH (09:07)
[2020-01-23] MEDS: DULOXETINE HCL 30 MG DELAYED RELEASE PO SCH ×2 (09:07→21:00)
[2020-01-23] MEDS: SODIUM BICARBONATE 650 MG TAB PO SCH ×3 (09:07→21:00)
--- NOTE | 2020-01-23 11:02 | NUR ---
PATIENT IN BED RESTING WITH NO S/S OF DISTRESS. IV IRON INFUSING ORDERED. CALL LIGHT AT REACH.
[2020-01-23] MEDS: IRON SUCROSE 100 MG in SODIUM CHLORIDE 0.9% 100 ML 100 ML IV SCH (11:15)
[2020-01-23] MEDS: PANTOPRAZOLE 40 MG 10ML VIAL IV SCH ×2 (11:30→23:29)
--- NOTE | 2020-01-23 13:41 | Progress Note ---
DATE: SUBJECTIVE: The patient is seen and evaluated. Available labs and notes reviewed. Discussed with Dr. Mckeon. Please refer to chart for more information. REVIEW OF SYSTEMS: The patient feels better. No complaints today. Pain is controlled. The patient is happy with the progress and she is waiting for utility bill collector to come in and see her basically. She has no other complaints. PHYSICAL EXAMINATION: VITAL SIGNS: Temperature is 98.8, pulse 75, respiration 20, and blood pressure 135/59. GENERAL: Awake and alert, pleasant, no acute distress. CV: S1 and S2. CHEST: Equal expansion. Clear to auscultation. No acute distress. HEENT: Moist. No pallor. No JVD. EXTREMITIES: Right foot wound seen. No active pus or drainage noted and is not tender. ABDOMEN: Soft and nontender. No distention. MEDICATIONS: Reviewed and from Infectious Disease point of view, the patient is on Rocephin. LABORATORY STUDIES: White count of 11.42, improved from 12.76, hemoglobin 8, and platelet 655. Sodium 140, potassium 3.6, and creatinine 1.54. Serology; coronavirus PCR not detected on 01/16/2020. IMAGING: No new radiology studies available. ASSESSMENT AND PLAN: 1. Right foot diabetic foot ulcer. 2. Right foot osteomyelitis. 3. Leukocytosis. 4. Chronic kidney disease, renally dosed antibiotics. 5. Uncontrolled diabetes. 6. Hypertension. 7. Nausea and vomiting, resolved. 8. Peripheral vascular disease. 9. Cirrhosis. 10. Continue with Rocephin. Wound culture showed Streptococcus viridans on 01/19/2020. Also, she had a wound culture on 01/16/2020, showing Enterococcus faecalis, not vancomycin-resistant Enterococcus. 11. Continue with wound care, PT/OT. Further management of this patient is based on daily findings on laboratory and physical examination. Dictated by Serafin Mcginnis PA-C (Al) Rishabh Mckeon MD /MODL /[id number]
[2020-01-23] MEDS: CEFTRIAXONE SOD 2 GM/NS 100 ML 100 ML IV SCH (15:04)
--- NOTE | 2020-01-23 15:53 | NUR ---
PATIENT OUT OF BED TO WHEEL CHAIR WHEELING SELF IN THE ROOM. CALL LIGHT AT REACH.
[2020-01-23] MEDS: INSULIN GLARGINE 100 UNITS/ML VIAL SQ SCH (21:00)
[2020-01-23] MEDS: ROPINIROLE HCL 1 MG TAB PO SCH (21:00)
[2020-01-23] MEDS: ATORVASTATIN 40 MG TAB PO SCH (21:00)
[2020-01-24] VITALS (9 sets, daily range): BP systolic 132–170; BP diastolic 50–85
--- NOTE | 2020-01-24 00:13 | Progress Note ---
DATE: 01/23/2020 CONSULTANTS: 1. Dr. Mckeon, Infectious Disease. 2. Dr. Quiroga, Podiatry. 3. Dr. Sutherland, Nephrology. 4. Dr. Avilez, GI. 5. Dr. Foster, Cardiology. SUBJECTIVE: The patient reports nausea and vomiting, has improving some, but still with poor p.o. intake, agrees with Nepro supplement. She denies any abdominal pain, chest pain, fever, or chills. PHYSICAL EXAMINATION: VITAL SIGNS: Temperature 98.8, pulse is 75, respirations 20, blood pressure 135/59, pulse ox is 97% on room air. GENERAL: In no acute distress. HEENT: Normocephalic, atraumatic. NECK: Supple. LUNGS: With decreased breath sounds. CARDIOVASCULAR: Regular rate and rhythm. ABDOMEN: Soft and nontender. NEUROLOGIC: Alert, awake, and oriented x3. MUSCULOSKELETAL: Moves all extremities. SKIN: Right foot ulcer, status post debridement and dressing intact. PSYCH: Calm. LABORATORY DATA: WBC 11.42, hemoglobin 8.0, hematocrit 25.6, platelet is 655. Sodium 142, potassium 3.6, anion gap 16.6, BUN is 19 and creatinine 1.54, estimated GFR is 42, blood glucose 121, calcium 8.3, AST 19, ALT 17, and alkaline phosphate 158. IMPRESSION: 1. Right foot diabetic ulcer with osteomyelitis. We will continue on Rocephin per ID. Status post bedside debridement per Podiatry. 2. Leukocytosis, improving. WBC is mildly improved. 3. Chronic kidney disease, improving. Creatinine is 1.54, Renal on the case. 4. Uncontrolled diabetes. Hemoglobin A1c 11.1. Continue sliding scale insulin and Lantus at bedtime. 5. Hypertension. Resume home medication, hydralazine IV p.r.n. 6. Intractable nausea and vomiting. Status post EGD, which showed esophagitis and gastritis. Continue Phenergan and Reglan as needed. 7. Chronic peripheral vascular disease. Aware. 8. Chronic anemia. Hemoglobin is 8.0 today. We will continue to monitor. 9. Cirrhosis, on imaging. 10. Deep vein thrombosis prophylaxis. SCDs due to anemia. PLAN: To continue supportive therapy, antiemetics, and IV antibiotics per ID. Wound care per Podiatry and we will add Nepro for nutritional supplement. Dictated by Annie Jenkins, ANP MD ELTON Joe/JONATHAN /[id number]
[2020-01-24] MEDS: MORPHINE SULFATE INJ 4 MG/ML INJ 1ML IV PRN ×4 (00:25→17:30)
[2020-01-24] MEDS: PROMETHAZINE 12.5MG/ NACL 0.9% 12.5 MG/50 ML BAG IV PRN ×3 (01:15→17:30)
[2020-01-24] MEDS: MUPIROCIN 2% OINT 22 GM TUBE TOP SCH (01:15)
--- NOTE | 2020-01-24 03:33 | NUR ---
dressing changed as per orders
[2020-01-24] MEDS: INSULIN LISPRO 100 UNIT/1 ML 3ML VIAL SQ SCH ×7 (07:30→21:00)
[2020-01-24] MEDS: DULOXETINE HCL 30 MG DELAYED RELEASE PO SCH ×3 (09:00→21:04)
[2020-01-24] MEDS: HYDRALAZINE HCL 25 MG TAB PO SCH ×3 (09:30→21:04)
[2020-01-24] MEDS: CARVEDILOL 12.5 MG TAB PO SCH ×2 (09:30→21:00)
[2020-01-24] MEDS: ASPIRIN 81 MG ENTERIC COATED PO SCH (09:30)
[2020-01-24] MEDS: METOCLOPRAMIDE HCL 10 MG/2ML VIAL IV SCH ×4 (09:30→21:03)
[2020-01-24] MEDS: AMLODIPINE BESYLATE 10 MG TAB PO SCH (09:30)
[2020-01-24] MEDS: FAMOTIDINE 20 MG/2 ML VIAL IV SCH ×2 (09:30→21:03)
[2020-01-24] MEDS: SODIUM BICARBONATE 650 MG TAB PO SCH ×3 (09:30→21:04)
[2020-01-24] MEDS: CYANOCOBALAMIN INJ 1,000 MCG/ML VIAL IM SCH (09:30)
[2020-01-24] MEDS: FLUTICASONE/SALMETEROL 115/21 12 GM AERO IH SCH ×3 (09:32→19:45)
[2020-01-24] MEDS: IRON SUCROSE 100 MG in SODIUM CHLORIDE 0.9% 100 ML 100 ML IV SCH (10:48)
[2020-01-24] MEDS: PANTOPRAZOLE 40 MG 10ML VIAL IV SCH ×2 (13:34→23:30)
--- NOTE | 2020-01-24 16:03 | NUR ---
PHYSICAL EXAMINATION: VITAL SIGNS: Temperature 98.8, pulse is 75, respirations 20, blood pressure 135/59, pulse ox is 97% on room air. GENERAL: In no acute distress. HEENT: Normocephalic, atraumatic. NECK: Supple. LUNGS: With decreased breath sounds. CARDIOVASCULAR: Regular rate and rhythm. ABDOMEN: Soft and nontender. NEUROLOGIC: Alert, awake, and oriented x3. MUSCULOSKELETAL: Moves all extremities. SKIN: Right foot ulcer, status post debridement and dressing intact. PSYCH: Calm. LABORATORY DATA: WBC 11.42, hemoglobin 8.0, hematocrit 25.6, platelet is 655. Sodium 142, potassium 3.6, anion gap 16.6, BUN is 19 and creatinine 1.54, estimated GFR is 42, blood glucose 121, calcium 8.3, AST 19, ALT 17, and alkaline phosphate 158. IMPRESSION: 1. Right foot diabetic ulcer with osteomyelitis. We will continue on Rocephin per ID. Status post bedside debridement per Podiatry. 2. Leukocytosis, improving. WBC is mildly improved. 3. Chronic kidney disease, improving. Creatinine is 1.54, Renal on the case. 4. Uncontrolled diabetes. Hemoglobin A1c 11.1. Continue sliding scale insulin and Lantus at bedtime. 5. Hypertension. Resume home medication, hydralazine IV p.r.n. 6. Intractable nausea and vomiting. Status post EGD, which showed esophagitis and gastritis. Continue Phenergan and Reglan as needed.
[2020-01-24] MEDS: CEFTRIAXONE SOD 2 GM/NS 100 ML 100 ML IV SCH (16:14)
--- NOTE | 2020-01-24 19:27 | NUR ---
Patient received lying in bed. AAO x 4. Patient had no complaints of pain. Respirations even and non-labored. Dressing to right foot CDI. Safety measures implemented. Patient instructed to call for assistance when needed. Call light within reach.
--- NOTE | 2020-01-24 20:02 | Progress Note ---
DATE: 01/24/2020 SUBJECTIVE: Mrs. Gordon is doing well. There are no new complaints. REVIEW OF SYSTEMS: Otherwise unremarkable. PHYSICAL EXAMINATION: GENERAL: Currently, alert and oriented. VITAL SIGNS: Stable, currently afebrile. HEENT: She is not icteric. NECK: Supple. CHEST: Clear. HEART: S1, S2. ABDOMEN: Soft. Bowel sounds present. EXTREMITIES: No edema. SKIN: No rash. LABORATORY DATA: Reviewed. Chart reviewed. IMPRESSION: Osteomyelitis of the foot, chronic kidney disease. From Infectious Disease point of view, can be discharged home on Rocephin 2 g daily for 6 weeks, weekly CBC with chem panel and wound Care. MD REGGIE Bangura/JONATHAN /[id number]
--- NOTE | 2020-01-24 20:02 | Progress Note ---
DATE: 01/24/2020 CONSULTANTS: 1. Dr. Mckeon, Infectious Disease. 2. Dr. Quiroga, Podiatry. 3. Dr. Sutherland, Nephrology. 4. Dr. Avilez, GI. 5. Dr. Foster, Cardiology. SUBJECTIVE: The patient is in bed with no acute distress, she reports nausea and vomiting have much improved, she denies any chest pain, abdominal pain, fever, or chills. PHYSICAL EXAMINATION: VITAL SIGNS: Temperature 98.5, pulse is 65, respirations 20, blood pressure 135/63, pulse ox is 96% on room air. GENERAL: No acute distress. HEENT: Normocephalic and atraumatic. NECK: Supple. LUNGS: Clear to auscultation. CARDIOVASCULAR: Regular rate and rhythm. ABDOMEN: Soft and nontender. NEUROLOGIC: Alert, awake, and oriented x3. MUSCULOSKELETAL: Moves all extremities. SKIN: Dry. Right foot ulcer improving. Dressing intact. PSYCH: Calm. IMPRESSION: 1. Right foot diabetic ulcer with osteomyelitis, status post debridement per Podiatry. We will continue on Rocephin per ID. 2. Leukocytosis, improving. 3. Chronic kidney disease, stable, Renal on the case. 4. Uncontrolled diabetes. Hemoglobin A1c 11.1. Continue sliding scale insulin and Lantus at bedtime. 5. Hypertension. Resume home medication, and hydralazine IV p.r.n. 6. Intractable nausea and vomiting. Status post EGD, which showed esophagitis and gastritis. Continue Phenergan and Reglan as needed. 7. Chronic peripheral vascular disease. Aware. 8. Chronic anemia. Hemoglobin is stable. We will continue to monitor. 9. Cirrhosis, on imaging. 10. Deep vein thrombosis prophylaxis. SCDs due to anemia. PLAN: To continue supportive care, antiemetics, and IV antibiotics. Dictated by JUANIS Thakkar Davie Mcqueen MD MY/MODL /[id number]
[2020-01-24] MEDS: INSULIN GLARGINE 100 UNITS/ML VIAL SQ SCH (21:00)
[2020-01-24] MEDS: ROPINIROLE HCL 1 MG TAB PO SCH (21:04)
[2020-01-24] MEDS: ATORVASTATIN 40 MG TAB PO SCH (21:25)
[2020-01-25] VITALS (8 sets, daily range): BP systolic 143–177; BP diastolic 65–82
[2020-01-25] MEDS: MORPHINE SULFATE INJ 4 MG/ML INJ 1ML IV PRN ×4 (03:25→19:12)
[2020-01-25] MEDS: HYDRALAZINE HCL 20 MG/ML VIAL IV PRN (05:13)
--- NOTE | 2020-01-25 07:00 | NUR ---
Walking rounds done. BSSR given to oncoming nurse regarding patient's status.
[2020-01-25] MEDS: METOCLOPRAMIDE HCL 10 MG/2ML VIAL IV SCH ×4 (07:30→21:59)
--- NOTE | 2020-01-25 08:50 | NUR ---
Spoke to pt at bedside regarding dc plan. Pt states she has had IV antibiotics at home previously and wants to go home on discharge. CM will ask Dr. Mckeon for orders to arrange abx.
[2020-01-25] MEDS: DULOXETINE HCL 30 MG DELAYED RELEASE PO SCH ×2 (09:00→21:00)
[2020-01-25] MEDS: ASPIRIN 81 MG ENTERIC COATED PO SCH ×2 (09:00→09:23)
[2020-01-25] MEDS: HYDRALAZINE HCL 25 MG TAB PO SCH ×4 (09:00→21:59)
[2020-01-25] MEDS: SODIUM BICARBONATE 650 MG TAB PO SCH ×4 (09:00→22:00)
[2020-01-25] MEDS: CARVEDILOL 12.5 MG TAB PO SCH ×3 (09:00→22:00)
[2020-01-25] MEDS: AMLODIPINE BESYLATE 10 MG TAB PO SCH ×2 (09:00→09:23)
[2020-01-25] MEDS: PROMETHAZINE 12.5MG/ NACL 0.9% 12.5 MG/50 ML BAG IV PRN ×3 (09:10→22:31)
[2020-01-25] MEDS ORDERED: SODIUM CHLORIDE 0.9% 250ML 250 ML ONE (09:11)
[2020-01-25] MEDS: FAMOTIDINE 20 MG/2 ML VIAL IV SCH ×2 (09:22→21:59)
[2020-01-25] MEDS: CYANOCOBALAMIN INJ 1,000 MCG/ML VIAL IM SCH (09:23)
[2020-01-25] MEDS: INSULIN LISPRO 100 UNIT/1 ML 3ML VIAL SQ SCH ×7 (09:23→22:04)
[2020-01-25] MEDS: FLUTICASONE/SALMETEROL 115/21 12 GM AERO IH SCH (10:47)
[2020-01-25] MEDS: IRON SUCROSE 100 MG in SODIUM CHLORIDE 0.9% 100 ML 100 ML IV SCH (10:49)
--- NOTE | 2020-01-25 10:55 | NUR ---
Received IV abx order from Dr. Mckeon. CM back to pt's bedside to discuss choice. Pt now saying she may want to go to a facility, but wants to speak with MDs prior to making a final decision. KURT Valencia was notified.
[2020-01-25] MEDS: PANTOPRAZOLE 40 MG 10ML VIAL IV SCH ×2 (12:01→23:30)
[2020-01-25] MEDS: CEFTRIAXONE SOD 2 GM/NS 100 ML 100 ML IV SCH (15:30)
--- NOTE | 2020-01-25 15:54 | NUR ---
PT SIGNED CHOICE FOR [facility] IN [place]. FILED IN CHART COMPLETED RTF, PASRR AND FAXED CLINICALS TO [phone]
[2020-01-25] MEDS: SODIUM CHLORIDE 0.9% 1000ML 1,000 ML IV SCH (16:00)
--- NOTE | 2020-01-25 16:45 | Progress Note ---
DATE: 01/25/2020 CONSULTANTS: 1. Dr. Mckeon, Infectious Disease. 2. Dr. Quiroga, Podiatry. 3. Dr. Sutherland, Nephrology. 4. Dr. Avilez, GI. 5. Dr. Foster, Cardiology. SUBJECTIVE: The patient is sitting up in chair with no acute distress. She denies any nausea, vomiting, fever, chills, or abdominal pain. PHYSICAL EXAMINATION: VITAL SIGNS: Temperature 98.4, pulse is 75, respirations 16, blood pressure 165/82, and pulse ox is 95% on room air. GENERAL: No acute distress. HEENT: Normocephalic and atraumatic. NECK: Supple. LUNGS: Clear to auscultation. CARDIOVASCULAR: Regular rate and rhythm. ABDOMEN: Soft and nontender. NEUROLOGIC: Alert, awake, and oriented x3. MUSCULOSKELETAL: Moves all extremities. SKIN: Dry. Right foot ulcer, status post debridement and dressing intact with multiple toes amputation. PSYCH: Calm. IMPRESSION: 1. Right foot diabetic ulcer with osteomyelitis, status post debridement per Podiatry. We will continue on Rocephin per ID. We will insert PICC line for long-term IV antibiotics use. 2. Leukocytosis, improving. 3. Chronic kidney disease, stable. We will continue to monitor creatinine. 4. Uncontrolled diabetes. Hemoglobin A1c 11.1. Continue sliding scale insulin and Lantus at bedtime. 5. Hypertension. Resume home medications and hydralazine IV p.r.n. 6. Nausea and vomiting, status post EGD showing esophagitis and gastritis, now improved on Phenergan and Reglan as needed. 7. Chronic peripheral vascular disease, aware. 8. Chronic anemia. Hemoglobin is stable. We will continue to monitor closely. 9. Cirrhosis, on imaging. 10. Deep vein thrombosis prophylaxis. SCDs due to anemia. PLAN: To continue IV antibiotics, antiemetics as needed, and wound care per Podiatry. CM has been consulted for [facility] facility placement for long-term IV antibiotics and wound care. Dictated by JUANIS Thakkar Debiching Pradeep Mcqueen MD MY/MODL /[id number]
--- NOTE | 2020-01-25 18:36 | Progress Note ---
DATE: SUBJECTIVE: The patient is doing well. There are no new complaints. Plan for her to go to an LTAC. PHYSICAL EXAMINATION: GENERAL: She is currently alert and oriented. VITAL SIGNS: Stable, currently afebrile. HEENT: She is not icteric. NECK: Supple. CHEST: Clear. HEART: S1, S2. ABDOMEN: Soft. Bowel sounds present. EXTREMITIES: No edema. IMPRESSION: Right foot osteomyelitis, continue Rocephin for 6-8 weeks. The patient would like to go to skilled care facility. Neuropathy, diabetes mellitus, and hypertension. The patient is warned that the possibility of losing her foot. PLAN: Continue with supportive care as ordered. Continue with antibiotics as ordered. We will follow. MD REGGIE Bangura/JONATHAN /[id number]
--- NOTE | 2020-01-25 19:56 | Progress Note ---
DATE: 01/25/2020 SUBJECTIVE: The patient at this point in time, currently denies any nausea, vomiting, fever, chills, thigh pain, chest pain, calf pain, or shortness of breath. She just complains of some intermittent nausea, however, not constant. OBJECTIVE: VITAL SIGNS: Temperature is 98.4, pulse is 75, respiratory rate is 16, and blood pressure is 165/82. Physical examination does reveal necrotic tissue within the wound along the dorsal aspect of the right foot along the 1st metatarsal. There is decreased edema and decreased erythema noted. No active drainage at this point in time is noted, however, there is some drainage within the dressing. This is serous in nature. LABORATORY STUDIES: Unchanged. Her blood glucose is 88. Hemoglobin same as previous report including WBC of 11.42, hemoglobin 8.0, hematocrit 25.6, RBC is 3.09, and platelet count is 655. ASSESSMENT AND PLAN: 1. Osteomyelitis of the right ankle and the 1st metatarsal, 1st digit. 2. Diabetes mellitus, peripheral neuropathy/uncontrolled. 3. 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 RECOMMENDATIONS: The patient did discuss treatment options with her . She does pursue with conservative outpatient, IV antibiotics. She states she wishes to be transferred over to a facility, where 6 weeks of IV antibiotics can be performed. I did discuss with her risks and complications associated with that including continued osteomyelitis and actual possible loss of limb including partial foot and full foot amputation. She understands these risks and willing to accept those. At this point in time, a dressing was replaced today while all the nurses in the room. The patient will be transferred according to her tomorrow. Further recommendations pending the patient's clinical progression. Osei Burrell DPM MM/JONATHAN /[id number]
--- NOTE | 2020-01-25 20:25 | NUR ---
Patient informed of upcoming PICC line placement , cardiac surgical procedure and NPO status after midnight. Patient verbalized understanding and voluntarily signed "Disclosure and Consent" form.
--- NOTE | 2020-01-25 20:52 | Progress Note ---
DATE: 01/24/2020 SUBJECTIVE: The patient currently denies any nausea, vomiting, fever, chills, any thigh pain, chest pain, calf pain, or shortness of breath. The patient states she was admitted in regard to abscess worsening and infection to the right lower extremity. OBJECTIVE: GENERAL: The patient is alert, awake, and oriented x3, currently not in acute distress. VITAL SIGNS: Temperature 98.6, pulse 95, respiratory rate is 12, blood pressure 137/78. EXTREMITIES: Lower extremity evaluation reveals purulent drainage within the incision and drainage abscess site of the foot as well as on the first metatarsophalangeal joint as well as just proximal to this overlying the first metatarsal head. It should be noted there is purulent hemorrhagic drainage as well as necrotic tissue underlying the skin. There is no proximal erythematous streaking. Moderate edema was present. Minimal erythema is noted. LABORATORY DATA: Microbiology consistent with strep viridans and enterococcus faecalis. WBC is 11.42 down from 12.76, RBC is 3.09, hemoglobin 8.0, hematocrit is 25.6, platelet count is 655. Sodium 142, potassium 3.6, chloride is low 105, BUN is 19, creatinine is 1.54, estimated GFR is 42, glucose 121. The MRI was reviewed which reveals some erythema within the first metatarsal through its entire course as well as the first metatarsophalangeal, first digit. Abscess noted in the first metatarsophalangeal joint overlying this area. ASSESSMENT: 1. Abscess, right foot. 2. Grade 3 ulceration, right foot. 3. Osteomyelitis, right first ray including first metatarsal and first digit. 4. Uncontrolled diabetes mellitus. RECOMMENDATIONS: 1. At this point of time, given her previous 4th ray amputation as well as chronic ulceration underlying the 5th metatarsal head I have recommended transmetatarsal amputation of the right lower extremity. Risks and complications were discussed. The patient was very reluctant to proceed with TMA and wished to proceed with conservative treatment. She states it has improved with IV antibiotics, however, given the fact there is significant necrotic tissue underlying this area and the significant amount of necrotic subcutaneous fatty tissue with purulent exudate from the wound when pressed. I have recommended a TMA. The patient wished to discuss this further with her , at that point of point we will discuss further treatment. 2. Continue with IV antibiotics as per Dr. Mckeon. 3. Dressing was changed today while in the hospital room. Further recommendations will be pending the patient's clinical progression. Osei Burrell DPM MM/JONATHAN /[id number]
[2020-01-25] MEDS: INSULIN GLARGINE 100 UNITS/ML VIAL SQ SCH (21:00)
[2020-01-25] MEDS: ROPINIROLE HCL 1 MG TAB PO SCH (22:00)
[2020-01-25] MEDS: ATORVASTATIN 40 MG TAB PO SCH (22:00)
[2020-01-25] MEDS: MUPIROCIN 2% OINT 22 GM TUBE TOP SCH (22:01)
[2020-01-26] VITALS (9 sets, daily range): BP systolic 137–171; BP diastolic 64–82
[2020-01-26] MEDS: SODIUM CHLORIDE 0.9% 1000ML 1,000 ML IV SCH ×4 (00:35→14:40)
--- NOTE | 2020-01-26 02:00 | NUR ---
PICC line nurse arrived to place PICC line on patient. Nurse called Dr. Mcqueen to inquire if line can be placed as patient has a history of CKD and elevated creatine. Dr. Mcqueen recommended PICC line placement could wait until morning upon Dr. Sutherland's evaluation. Dr. Edmonds (covering for Dr. Sutherland) also reiterated the same thing.
[2020-01-26 05:16] LABS: BASOPHILS # (AUTO) 0.1 (0.0-0.1); BASOPHILS % 0.7 % (0.0-1.0); EOSINOPHILS # (AUTO) 0.3 (0.0-0.4); EOSINOPHILS % 2.6 % (0.0-6.0); HEMATOCRIT 25.7 % (34.2-44.1); HEMOGLOBIN 7.8 g/dL (12.0-16.0); LYMPHOCYTES # (AUTO) 2.7 (1.0-3.2); LYMPHOCYTES % 22.5 % (18.0-39.1); MEAN CORPUSCULAR HEMOGLOBIN 25.6 pg (28-32); MEAN CORPUSCULAR HGB CONC 30.4 g/dL (31-35); MEAN CORPUSCULAR VOLUME 84.3 fL (81-99); MONOCYTES # (AUTO) 1.2 (0.2-0.8); MONOCYTES % 9.7 % (4.4-11.3); NEUTROPHILS # (AUTO) 7.7 (2.1-6.9); NEUTROPHILS % 63.7 % (38.7-80.0); PLATELET COUNT 594 x10e3/uL (140-360); RED BLOOD COUNT 3.05 x10e6/uL (3.6-5.1); RED CELL DISTRIBUTION WIDTH 14.5 % (11.7-14.4)
[2020-01-26 05:38] LABS: INR 1.13; PROTHROMBIN TIME 15.1 seconds (11.9-14.5)
[2020-01-26 05:40] LABS: ALBUMIN 3.1 g/dL (3.5-5.0); ALBUMIN/GLOBULIN RATIO 0.9 (0.8-2.0); ANION GAP 15.8 mmol/L (8-16); CALCIUM 8.1 mg/dL (8.4-10.2); CREATININE, SERUM 1.31 mg/dL (0.57-1.11); POTASSIUM 3.8 mmol/L (3.5-5.1)
--- NOTE | 2020-01-26 06:00 | NUR ---
Blood specimen obtained from Central Line sent to lab for analysis.
[2020-01-26] MEDS: FLUTICASONE/SALMETEROL 115/21 12 GM AERO IH SCH (07:00)
--- NOTE | 2020-01-26 07:00 | NUR ---
Patient resting comfortably. No acute distress noted. Shift report given to oncoming nurse.
--- NOTE | 2020-01-26 07:14 | NUR ---
OK to place PICC line per Dr Sutherland.
--- NOTE | 2020-01-26 07:15 | NUR ---
ASSUMED CARE. AAOX3. ACYANOTIC. PATIENT RESTING IN BED. NO DISTRESS NOTED. CALL LIGHT IN REACH. SIDE RAILS UP X2. BED LOW AND LOCKED.
[2020-01-26] MEDS: INSULIN LISPRO 100 UNIT/1 ML 3ML VIAL SQ SCH ×7 (07:30→21:00)
[2020-01-26] MEDS: METOCLOPRAMIDE HCL 10 MG/2ML VIAL IV SCH ×4 (08:55→20:57)
[2020-01-26] MEDS: MORPHINE SULFATE INJ 4 MG/ML INJ 1ML IV PRN ×3 (08:55→21:05)
[2020-01-26] MEDS: FAMOTIDINE 20 MG/2 ML VIAL IV SCH (08:55)
[2020-01-26] MEDS: HYDRALAZINE HCL 20 MG/ML VIAL IV PRN (08:55)
[2020-01-26] MEDS: CYANOCOBALAMIN INJ 1,000 MCG/ML VIAL IM SCH (08:55)
[2020-01-26] MEDS: AMLODIPINE BESYLATE 10 MG TAB PO SCH (09:00)
[2020-01-26] MEDS: DULOXETINE HCL 30 MG DELAYED RELEASE PO SCH ×2 (09:00→21:00)
[2020-01-26] MEDS: ASPIRIN 81 MG ENTERIC COATED PO SCH (09:00)
[2020-01-26] MEDS: CARVEDILOL 12.5 MG TAB PO SCH ×2 (09:00→20:57)
[2020-01-26] MEDS: HYDRALAZINE HCL 25 MG TAB PO SCH ×3 (09:00→20:57)
[2020-01-26] MEDS: SODIUM BICARBONATE 650 MG TAB PO SCH ×3 (09:00→20:58)
[2020-01-26] MEDS ORDERED: IRON SUCROSE 100 MG in SODIUM CHLORIDE 0.9% 100 ML 100 ML IV SCH (09:15)
--- NOTE | 2020-01-26 09:17 | NUR ---
EDUCATED ABOUT IMM, SIGNED, FILED IN CHART, WITH COPY LEFT WITH FAMILY AT BEDSIDE.
[2020-01-26] MEDS: MUPIROCIN 2% OINT 22 GM TUBE TOP SCH ×2 (09:18→23:19)
--- NOTE | 2020-01-26 09:19 | NUR ---
PATIENT AAOX3. ACYANOTIC. RN AT BEDSIDE TO INITIATE INSERTION OF PICC LINE. NO DISTRESS NOTED.
--- NOTE | 2020-01-26 09:32 | NUR ---
WOUND CARE PROVIDED AND DRESSING CHANGED TO RIGHT FOOT
[2020-01-26] MEDS ORDERED: EPOETIN ALFA-EPBX 10,000 UNIT/ML VIAL SC ONE (10:35)
[2020-01-26] MEDS ORDERED: HEPARIN SOD (PORCINE) 1000 UNIT/ML 30ML ONE (10:39)
[2020-01-26] MEDS ORDERED: LIDOCAINE HCL 2% LOCAL 20 ML VIAL ONE ×2 (10:40→11:39)
[2020-01-26] MEDS ORDERED: MIDAZOLAM HCL 2 MG/2 ML VIAL ONE (10:40)
[2020-01-26] MEDS ORDERED: FENTANYL CITRATE/PF 100MCG/2 ML INJ ONE (10:40)
[2020-01-26] MEDS ORDERED: SODIUM CHLORIDE 0.9% 1000ML 1,000 ML ONE (10:41)
[2020-01-26] MEDS ORDERED: IOPAMIDOL 300MG/ML 100 ML INFUS..BTL IV ONE (10:41)
[2020-01-26] MEDS ORDERED: HEPARIN SOD/SOD CHLORIDE 2,000 ML ONE (10:41)
[2020-01-26] MEDS ORDERED: HYDRALAZINE HCL 20 MG/ML VIAL ONE (12:01)
[2020-01-26] MEDS ORDERED: CLOPIDOGREL BISULFATE 75 MG TAB ONE (12:12)
--- NOTE | 2020-01-26 12:29 | NUR ---
PATIENT ARRIVED TO UNIT AT APPROXIMATELY 1220. AAOX3. ACYANOTIC. NO DISTRESS NOTED. CALL LIGHT IN REACH. SIDE RAILS UP X2. BED LOW AND LOCKED. SPOUSE PRESENT AT BEDSIDE. DR. Diandra RAMIREZ AT BEDSIDE CONVERSING WITH PATIENT'S SPOUSE. DRESSING NOTED TO LEFT GROIN. SOFT, NON TENDER. PATIENT INSTRUCTED TO KEEP LEFT LEG STRAIGHT AND REMAIN ON BEDREST FOR NEXT FOR HOURS WITH TIME ENDING AT 4PM. PATIENT AND SPOUSE VERBALIZED UNDERSTANDING.
[2020-01-26] MEDS: PANTOPRAZOLE 40 MG 10ML VIAL IV SCH ×2 (13:07→23:30)
[2020-01-26] MEDS: IRON SUCROSE 100 MG in SODIUM CHLORIDE 0.9% 100 ML 100 ML IV SCH (13:07)
--- NOTE | 2020-01-26 14:52 | NUR ---
WENT TO ROOM, SPOKE WITH AND PT HAVE CHANGED MIND, DO NOT WANT TO GO TO [facility], WANTS TO GO TO [facility]. CALLED AND CANCELLED [facility] AND FAXED CLINICALS TO [facility]., FIXED PASRR AND RTF AND PUT BACK AT NURSES STATION.
--- NOTE | 2020-01-26 14:55 | NUR ---
PICC tip is in SVC per radiology report by Dr Lobato. PICC is okay to use
--- NOTE | 2020-01-26 14:57 | Diagnostic Imaging Report ---
EXAM: CHEST XRAY LINE PLACEMENT DATE: 01/26/2020 2:38 PM INDICATION: PICC placement COMPARISON: 01/16/2020 FINDINGS/IMPRESSION: There has been interval placement of a right-sided PICC line with distal tip terminating appropriately over the SVC. Right IJ coursing central venous catheter identified in stable position. The trachea is midline. There are increased interstitial opacities identified bilaterally with a lower lung zone predominance, slightly more prominent than the prior examination. There is no evidence for large focal consolidation, pneumothorax, or significant volume pleural effusion. The cardiomediastinal silhouette is stable in appearance. No acute osseous abnormality is identified. Signed by: Dr. Nura Lobato MD on 01/26/2020 2:54 PM
--- NOTE | 2020-01-26 15:01 | Progress Note ---
DATE: 01/26/2020 CONSULTANTS: 1. Dr. Mckeon, ID. 2. Dr. Quiroga, Podiatry. 3. Dr. Sutherland, Nephrology. 4. Dr. Avilez, GI. 5. Dr. Foster, Cardiology. SUBJECTIVE: The patient is resting comfortably post CUSTODIAN ATHLETIC EQUIPMENT this morning. She has been at bedside, discussed with treatment plan and reports she is doing much better. She denies any further nausea, vomiting, fever, or chills. No chest pain. PHYSICAL EXAMINATION: VITAL SIGNS: Temperature 98.1, pulse is 85, respirations 20, blood pressure 156/82, and pulse ox is 94% on room air. GENERAL: No acute distress. HEENT: Normocephalic, atraumatic. NECK: Supple. LUNGS: With decreased breath sounds. CARDIOVASCULAR: Regular rate and rhythm. ABDOMEN: Soft and nontender. NEUROLOGIC: Alert, awake, and oriented x3. MUSCULOSKELETAL: Moves all extremities. SKIN: Dry. Dressing intact. PSYCH: Calm. LABORATORY DATA: WBC 12.13, hemoglobin 7.8, hematocrit 25.7, and platelets 594. Sodium 142, potassium 3.8. BUN 15, creatinine 1.31, estimated GFR 51, blood glucose 238, calcium 8.1, AST 17, ALT 18, albumin 3.1. IMPRESSION: 1. Right foot diabetic ulcer with osteomyelitis of the metatarsal. Status post debridement per Podiatry. Continue Rocephin IV daily per ID. The patient refused TMA, so we will continue conservative treatment. 2. Leukocytosis, improving. WBCs are 12.2 today. 3. Chronic kidney disease, improving. Creatinine is 1.3. Continue management per Renal. 4. Uncontrolled diabetes. Hemoglobin A1c was 11.1. Continue sliding scale and Lantus at bedtime. 5. Hypertension. Resume home medications and hydralazine IV p.r.n. 6. Nausea, vomiting, status post EGD showing esophagitis and gastritis. Controlled with antiemetics p.r.n. GI on the case. 7. Chronic peripheral vascular disease. Status post CUSTODIAN ATHLETIC EQUIPMENT per Cardiology today. 8. Chronic anemia. Hemoglobin is stable at 7.8. Continue Venofer IV. 9. Cirrhosis, on imaging. Discussed with for followup as outpatient with GI and robotic toy inventor. 10. Deep vein thrombosis prophylaxis. SCDs due to anemia. PLAN: To continue IV antibiotics, PPI, and wound care per Podiatry. Anticipate discharge to nursing home facility tomorrow after inserting PICC line on current IV antibiotics recommendations. Dictated by JUANIS Thakkar MD ELTON Joe/DEQUANL /[id number]
[2020-01-26] MEDS: CEFTRIAXONE SOD 2 GM/NS 100 ML 100 ML IV SCH (15:53)
[2020-01-26] MEDS: PROMETHAZINE 12.5MG/ NACL 0.9% 12.5 MG/50 ML BAG IV PRN (17:57)
--- NOTE | 2020-01-26 20:02 | Progress Note ---
DATE: SUBJECTIVE: Ms. Gordon is doing good. There are no complaints. Her family at the bedside. PHYSICAL EXAMINATION: GENERAL: She is currently alert and oriented. Does not seem to be in acute distress. VITAL SIGNS: Stable, currently afebrile. HEENT: She is not icteric. NECK: Supple. CHEST: Clear. HEART: S1 and S2. ABDOMEN: Soft. Bowel sounds present. EXTREMITIES: No edema. SKIN: No rash. IMPRESSION: Osteomyelitis, right foot. Continue 6 weeks of Rocephin 2 g daily. Continue local care, CBC, chem panel, and follow up as an outpatient. MD REGGIE Bangura/JONATHAN /[id number]
--- NOTE | 2020-01-26 20:19 | NUR ---
RECEIVE DPT SITTING ON THE BED DENIES PAIN RESPRATIONS ARE EVEN AND UNLABORED ,RT UPPER ARM PICC LINE INFUSING ABT RT FOOT WITH DRESSING ,PT HAS INSULIN PUMP ,CALL LIGHT WITH IN REACH ,CONTINUE YO MONITOR
[2020-01-26] MEDS: ATORVASTATIN 40 MG TAB PO SCH (20:57)
[2020-01-26] MEDS: ROPINIROLE HCL 1 MG TAB PO SCH (20:58)
[2020-01-26] MEDS: INSULIN GLARGINE 100 UNITS/ML VIAL SQ SCH (21:00)
[2020-01-27] VITALS (8 sets, daily range): BP systolic 103–173; BP diastolic 49–77
[2020-01-27] MEDS: FAMOTIDINE 20 MG/2 ML VIAL IV SCH ×2 (02:20→08:30)
[2020-01-27] MEDS: MORPHINE SULFATE INJ 4 MG/ML INJ 1ML IV PRN ×4 (02:21→17:45)
[2020-01-27] MEDS: TRAZODONE HCL 50 MG TAB PO PRN ×2 (02:22→21:30)
[2020-01-27] MEDS: PROMETHAZINE 12.5MG/ NACL 0.9% 12.5 MG/50 ML BAG IV PRN ×3 (02:40→17:45)
[2020-01-27] MEDS: SODIUM CHLORIDE 0.9% 1000ML 1,000 ML IV SCH ×3 (04:44→15:55)
--- NOTE | 2020-01-27 05:35 | NUR ---
C/O PAIN AND NAUSEA GIVEN ORDERED PAIN MEDS CHANGE DRESSING TO THE RT FOOT D/C RT IJ ,CALL LIGHT WITH IN REACH .CONTINUE TO MONITOR
[2020-01-27 06:13] LABS: BASOPHILS # (AUTO) 0.1 (0.0-0.1); BASOPHILS % 0.7 % (0.0-1.0); EOSINOPHILS # (AUTO) 0.4 (0.0-0.4); EOSINOPHILS % 2.6 % (0.0-6.0); HEMATOCRIT 26.9 % (34.2-44.1); HEMOGLOBIN 8.2 g/dL (12.0-16.0); LYMPHOCYTES # (AUTO) 2.5 (1.0-3.2); LYMPHOCYTES % 15.8 % (18.0-39.1); MEAN CORPUSCULAR HEMOGLOBIN 25.7 pg (28-32); MEAN CORPUSCULAR HGB CONC 30.5 g/dL (31-35); MEAN CORPUSCULAR VOLUME 84.3 fL (81-99); MONOCYTES # (AUTO) 1.3 (0.2-0.8); MONOCYTES % 8.3 % (4.4-11.3); NEUTROPHILS # (AUTO) 11.1 (2.1-6.9); PLATELET COUNT 587 x10e3/uL (140-360); RED BLOOD COUNT 3.19 x10e6/uL (3.6-5.1); RED CELL DISTRIBUTION WIDTH 14.6 % (11.7-14.4)
[2020-01-27 06:31] LABS: ALBUMIN 3.3 g/dL (3.5-5.0); ANION GAP 18.8 mmol/L (8-16); CALCIUM 8.4 mg/dL (8.4-10.2); CREATININE, SERUM 1.17 mg/dL (0.57-1.11); POTASSIUM 3.8 mmol/L (3.5-5.1)
--- NOTE | 2020-01-27 07:13 | NUR ---
PT IS TAKING HER OWN BLOOD SUGAR AND SHE DOES NOT ALLOW PCT TO TAKE ..BEDSIDE REPORT GIVEN TO THE ONCOMING NURSE
[2020-01-27] MEDS: FLUTICASONE/SALMETEROL 115/21 12 GM AERO IH SCH (07:15)
[2020-01-27] MEDS: INSULIN LISPRO 100 UNIT/1 ML 3ML VIAL SQ SCH ×7 (07:30→21:00)
--- NOTE | 2020-01-27 07:56 | NUR ---
SPOKE WITH REP, RECEIVED CLINICALS SUBMITTED HOPEFULLY WILL GET AUTH TODAY.
[2020-01-27] MEDS: METOCLOPRAMIDE HCL 10 MG/2ML VIAL IV SCH (08:30)
[2020-01-27] MEDS: DULOXETINE HCL 30 MG DELAYED RELEASE PO SCH ×2 (09:00→21:00)
[2020-01-27] MEDS: CYANOCOBALAMIN INJ 1,000 MCG/ML VIAL IM SCH (09:00)
[2020-01-27] MEDS: ASPIRIN 81 MG ENTERIC COATED PO SCH (09:41)
[2020-01-27] MEDS: MUPIROCIN 2% OINT 22 GM TUBE TOP SCH ×2 (09:41→23:44)
[2020-01-27] MEDS: CLOPIDOGREL BISULFATE 75 MG TAB PO SCH (09:41)
[2020-01-27] MEDS: SODIUM BICARBONATE 650 MG TAB PO SCH ×3 (09:41→21:22)
[2020-01-27] MEDS: LOSARTAN POTASSIUM 25 MG TAB PO SCH (09:44)
[2020-01-27] MEDS: CARVEDILOL 12.5 MG TAB PO SCH ×2 (09:45→21:00)
[2020-01-27] MEDS: HYDRALAZINE HCL 25 MG TAB PO SCH ×3 (09:45→22:17)
[2020-01-27] MEDS: AMLODIPINE BESYLATE 10 MG TAB PO SCH (09:45)
[2020-01-27] MEDS: IRON SUCROSE 100 MG in SODIUM CHLORIDE 0.9% 100 ML 100 ML IV SCH (12:27)
--- NOTE | 2020-01-27 13:49 | NUR ---
SPOKE WITH FACILITY TO CHECK STATUS, STATES STILL PENDING.
[2020-01-27] MEDS: CEFTRIAXONE SOD 2 GM/NS 100 ML 100 ML IV SCH (14:33)
[2020-01-27] MEDS: METOCLOPRAMIDE HCL 10 MG TAB PO SCH ×2 (16:00→21:22)
--- NOTE | 2020-01-27 17:17 | NUR ---
Nutrition Intervention Note RD Recommendation(s) for Physician: -Recommend ADA diet - Glucerna nutrition supplement BID for added nutrition Plan of Care: RD following, monitoring for tolerance and adequacy, oral supplement recommendation Nutrition reason for involvement: follow up RD Assessment 01/26: Follow up. Pt reports eating <50% of meals the past week and is experiencing nausea. Pt stated she usually weighs 170 lbs. No chewing/swallowing issues. Pt declined the need for diet education. Recommend Glucerna BID for added nutrition. Will continue to monitor. (01/21/20) Chart reviewed. Labs and meds reviewed. Pt is a 59 year old female admitted with diabetic foot ulcer and severe sepsis. Attempted to speak to pt, but she was sleeping at time of visit. Pt is currently on a clear liquid diet. It is noted that pt had some N/V and an EGD is planned. Last recorded meal intake was 100% on 01/16. There are no reports of decreased appetite or recent unintentional weight loss per chart prior to admission. Pt weighed 172-184 lbs per last admission in July 2019. Will continue to monitor Principal Problems/Diagnoses: diabetic foot ulcer, severe sepsis PMH: Diabetes type 2, on insulin therapy, peripheral vascular disease,status post intervention of the lower extremity. Recurrent foot ulcer with both foot/toe amputation. Chronic liver disease, chronic anemia, reflux, chronic kidney disease,chronic lower back pain, hypertension, diabetic neuropathy, recurrent diabetic ulcer ofthe lower extremity. Recurrent hospitalization due to infection. GI: last recorded BM 01/25 Skin: right foot wound Labs: (01/26) Na 140, K 3.8, BUN 11, Cr 1.17, Glu 185, Ca 8.4 Meds: antibiotic, IV iron, morphine, losartan, insulin, Lipitor, vitamin B12, protonix, reglan Ht: 65 in Wt: 170 lb BMI: 28.3 kg/m2 IBW: 125 lb Malnutrition Evaluation (01/27/20) The patient does not meet criteria for a specified degree of malnutrition at this time. Will re-evaluate at follow-up as appropriate. Energy intake: <50% of estimated energy requirements for >5 days Weight loss: No weight loss is indicated Fat loss: no loss identified per observation Muscle loss: no loss identified per observation Supporting Evidence: Fluid accumulation: no edema per chart Functional Status: unable to assess Nutrition Prescription (Diet Order): cardiac Estimated Nutritional Needs: 8844-4244 calories/day (18-20 kcal/kg CBW) Weight used: 170 lbs 77-115 g protein/day (1-1.5 g pro/kg CBW) Weight used: 170 lbs Diet Adequacy: Not meeting calorie needs, Not meeting protein needs Tolerance: pt reports nausea Diet Education Needs Assessment: Pt declined the need for diet education Nutrition Care Level: moderate Nutrition Diagnosis: Inadequate energy intake related to decreased ability to consume sufficient energy as evidenced by pt reports eating <50% of meals in the past week Goal: Patient will meet 75-100% of estimated needs by follow up Progress: goal not met Interventions: -carbohydrate -modified diet, Commercial beverage Monitoring/Evaluation: -Total energy intake, Total protein intake, Modified diet, Liquid supplement, Weight change Signed: Giovanna Talamantes RD, LD
--- NOTE | 2020-01-27 18:27 | Progress Note ---
DATE: SUBJECTIVE: Ms. Gordon is doing well. There is no new complaint. REVIEW OF SYSTEMS: HEENT: Negative. PULMONARY: Negative. All negative. PHYSICAL EXAMINATION: GENERAL: She is currently alert and oriented. VITAL SIGNS: Stable, currently afebrile. HEENT: Normocephalic. NECK: Supple. CHEST: Clear. HEART: S1, S2. ABDOMEN: Soft. Bowel sounds present. EXTREMITIES: No edema. SKIN: No rash. IMPRESSION: 1. Osteomyelitis. The patient will wait on LTAC or a long-term facility. Continue IV antibiotic. Continue with local care. 2. Diabetes mellitus. Continue with diabetic control. 3. Discussed with medical team. We will follow. MD REGGIE Bangura/MODL /[id number]
--- NOTE | 2020-01-27 19:41 | NUR ---
RECEIVED PT AOX3 SITTING ON THE BED DENIES PAIN RESPIRATIONS ARE EVEN AND UNLABORED ,RT UPPER ARM PICC LINE INFUSING ABT RT FOOT WITH DRESSING ,,CALL LIGHT WITH IN REACH ,CONTINUE YO MONITOR
[2020-01-27] MEDS: INSULIN GLARGINE 100 UNITS/ML VIAL SQ SCH (21:00)
[2020-01-27] MEDS: ATORVASTATIN 40 MG TAB PO SCH (21:00)
[2020-01-27] MEDS: PANTOPRAZOLE SOD 40 MG TABEC PO SCH (21:21)
[2020-01-27] MEDS: ROPINIROLE HCL 1 MG TAB PO SCH (21:22)
--- NOTE | 2020-01-27 22:03 | Progress Note ---
DATE: 01/27/2020 CONSULTANTS: 1. Dr. Mckeon, ID. 2. Dr. Quiroga, Podiatry. 3. Dr. Sutherland, Nephrology. 4. Dr. Avilez, GI. 5. Dr. Foster, Cardiology. SUBJECTIVE: The patient is sitting up in bed with no acute distress. She reports nausea and vomiting has improved. No fever, chills, chest pain, or shortness of breath. PHYSICAL EXAMINATION: VITAL SIGNS: Temperature 98.7, pulse is 72, respirations 20, blood pressure 160/57, pulse ox is 99% on room air. GENERAL: No acute distress. HEENT: Normocephalic, atraumatic. NECK: Supple. LUNGS: Clear to auscultation. CARDIOVASCULAR: Regular rate and rhythm. ABDOMEN: Soft and nontender. NEUROLOGIC: Alert, awake, and oriented x3. MUSCULOSKELETAL: Moves all extremities. SKIN: Dry and intact. Right foot dressing intact. PSYCH: Calm. LABORATORY DATA: WBC is 15.46, hemoglobin 8.2, hematocrit 26.9, platelet 587. Sodium 140, potassium 3.8, BUN is 11, creatinine 1.17, estimated GFR is 58, glucose 185. AST 28, ALT 25, alkaline phosphate 145. IMPRESSION: 1. Right foot diabetic ulcer with osteomyelitis of the metatarsal, status post debridement per Podiatry. Continue Rocephin IV daily per ID. The patient refused TMA and wishes to continue conservative treatment. 2. Leukocytosis. WBC 15. We will continue with IV antibiotics and trend. 3. Chronic kidney disease. Improving. Creatinine of 1.1. Renal is on case. 4. Uncontrolled diabetes with hemoglobin 11.1. Continue sliding scale insulin and Lantus at bedtime. 5. Hypertension. Resume home medication and hydralazine IV p.r.n. 6. Gastritis and esophagitis per EGD. It is improving with antiemetics as needed. GI on the case. 7. Chronic peripheral vascular disease. Status post APPLICATIONS SCIENTIST per Cardiology. . 8. Chronic anemia. Hemoglobin is stable at . 9. Cirrhosis on imaging. Discussed with for followup as outpatient GI and toy mechanic. 10. Deep vein thrombosis prophylaxis. SCDs due to anemia. PLAN: Continue IV antibiotics and pain management as needed. PICC line has been placed and awaiting placement to a care home facility for antibiotics and wound care. Dictated by JUANIS Thakkar MD ELTON Joe/DEQUANL /[id number]
[2020-01-28] VITALS (9 sets, daily range): BP systolic 120–175; BP diastolic 54–82
[2020-01-28] MEDS: MORPHINE SULFATE INJ 4 MG/ML INJ 1ML IV PRN ×4 (02:12→19:23)
[2020-01-28] MEDS: PROMETHAZINE 12.5MG/ NACL 0.9% 12.5 MG/50 ML BAG IV PRN ×2 (04:49→19:23)
[2020-01-28] MEDS: SODIUM CHLORIDE 0.9% 1000ML 1,000 ML IV SCH ×2 (05:50→21:18)
--- NOTE | 2020-01-28 06:20 | NUR ---
C/O PAIN AND GIVEN ORDERED PAIN MEDICATION ,CALL LIGHT WITH IN REACH CONTINUE TO MONITOR
--- NOTE | 2020-01-28 06:25 | NUR ---
C/O PAIN AND GIVEN ORDERED PAIN MEDICATION ,CALL LIGHT WITH IN REACH CONTINUE TO MONITOR
--- NOTE | 2020-01-28 06:50 | NUR ---
BEDSIDE REPORT GIVEN TO THE ONCOMING NURSE
[2020-01-28] MEDS: FLUTICASONE/SALMETEROL 115/21 12 GM AERO IH SCH (07:35)
--- NOTE | 2020-01-28 08:10 | NUR ---
CONTACTED FACILITY, AUTH STILL PENDING
[2020-01-28] MEDS: METOCLOPRAMIDE HCL 10 MG TAB PO SCH ×4 (09:26→21:19)
[2020-01-28] MEDS: CYANOCOBALAMIN INJ 1,000 MCG/ML VIAL IM SCH (09:27)
[2020-01-28] MEDS: HYDRALAZINE HCL 25 MG TAB PO SCH ×3 (09:28→21:19)
[2020-01-28] MEDS: CARVEDILOL 12.5 MG TAB PO SCH ×2 (09:28→21:19)
[2020-01-28] MEDS: LOSARTAN POTASSIUM 25 MG TAB PO SCH (09:28)
[2020-01-28] MEDS: DULOXETINE HCL 30 MG DELAYED RELEASE PO SCH ×2 (09:28→21:00)
[2020-01-28] MEDS: ASPIRIN 81 MG ENTERIC COATED PO SCH (09:28)
[2020-01-28] MEDS: PANTOPRAZOLE SOD 40 MG TABEC PO SCH ×2 (09:29→21:19)
[2020-01-28] MEDS: AMLODIPINE BESYLATE 10 MG TAB PO SCH (09:29)
[2020-01-28] MEDS: SODIUM BICARBONATE 650 MG TAB PO SCH ×3 (09:29→21:19)
[2020-01-28] MEDS: MUPIROCIN 2% OINT 22 GM TUBE TOP SCH ×2 (09:29→21:00)
[2020-01-28] MEDS: CLOPIDOGREL BISULFATE 75 MG TAB PO SCH (09:29)
[2020-01-28] MEDS: INSULIN LISPRO 100 UNIT/1 ML 3ML VIAL SQ SCH ×7 (09:38→21:34)
[2020-01-28] MEDS: IRON SUCROSE 100 MG in SODIUM CHLORIDE 0.9% 100 ML 100 ML IV SCH (10:54)
--- NOTE | 2020-01-28 12:13 | NUR ---
LONG TERM FACILITY DISCHARGE INFORMATION PATIENT HAS BEEN ACCEPTED TO: [facility] NAME:[place] ADDRESS:[id number] [facility] ACCEPTING CLAIMS ADMINISTRATOR: PHAM STORM ACCEPTING MD: ELADIO SANON ROOM:[id number] NURSE CALL REPORT TO: [phone] IMM SIGNED AND OBTAINED (if applicable): IMM THE FOLLOWING DOCUMENTS MUST ACCOMPANY PATIENT FOR TRANSFER: COPIED CHART:
--- NOTE | 2020-01-28 15:01 | Progress Note ---
DATE: 01/28/2020 CONSULTANTS: 1. Dr. Mckeon, ID. 2. Dr. Quiroga, Podiatry. 3. Dr. Sutherland, Nephrology. 4. Dr. Avilez, GI. 5. Dr. Foster, Cardiology. SUBJECTIVE: The patient is sitting up in a chair with no acute distress. No fever, chills, chest pain, or shortness of breath. PHYSICAL EXAMINATION: VITAL SIGNS: Temperature 98.2, pulse is 73, respirations 20, blood pressure 175/69, and pulse ox is 94% on room air. GENERAL: No acute distress. HEENT: Normocephalic and atraumatic. NECK: Supple. LUNGS: Clear to auscultation. CARDIOVASCULAR: Regular rate and rhythm. ABDOMEN: Soft and nontender. NEUROLOGIC: Alert, awake, and oriented x3. MUSCULOSKELETAL: Moves all extremities. SKIN: Dry and intact. Right foot dressing intact. PSYCH: Calm. LABORATORY DATA: No labs today. IMPRESSION: 1. Right foot diabetic ulcer with osteomyelitis of the metatarsal, status post debridement per Podiatry and CLINICAL ACCOUNT MANAGER. Continue Rocephin IV daily and debridement planned for tomorrow per Podiatry again. 2. Leukocytosis. WBC is stable. Afebrile. We will continue with IV antibiotics and trend. 3. Chronic kidney disease. Creatinine improving. Renal on case. 4. Uncontrolled diabetes with hemoglobin A1c of 11.1. Continue sliding scale insulin and Lantus at bedtime. 5. Hypertension. Resume home medications and hydralazine IV p.r.n. 6. Gastritis and esophagitis per EGD. Improving with PPI and antiemetics per GI. 7. Chronic peripheral vascular disease. Status post CLINICAL ACCOUNT MANAGER for Cardiology. 8. Chronic anemia. Hemoglobin is stable. We will continue to monitor. 9. Cirrhosis on imaging. Discussed with and the patient regarding outpatient followup with GI and housekeeping room inspector. 10. Deep vein thrombosis prophylaxis. SCDs due to anemia. PLAN: Continue antibiotics and pain management as needed. SNF discharge is rescheduled for tomorrow after debridement per Podiatry. Dictated by JUANIS hTakkar Davie Mcqueen MD MY/MODL /[id number]
[2020-01-28] MEDS: CEFTRIAXONE SOD 2 GM/NS 100 ML 100 ML IV SCH (15:18)
--- NOTE | 2020-01-28 18:53 | Progress Note ---
DATE: 01/28/2020 SUBJECTIVE: The patient is seen at bedside. No distress. OBJECTIVE: VITAL SIGNS: Afebrile, pulse rate 65, respirations 16, blood pressure 156/72, and O2 saturation 94%. EXTREMITIES: Dressing dry and intact to the right lower extremity. CFT to all toes less than 5 seconds. LABORATORY DATA: Show white blood cell count of 15.4. ASSESSMENT: Osteomyelitis with cellulitis, right foot with multiple grade 3 ulcerations. PLAN: We will continue IV antibiotics. Bedside debridement will be done this weekend. We will treat her conservatively for now. Does not want any type of amputation. Continue local wound care and IV antibiotics. JOSEF Carbajal/JONATHAN /[id number]
--- NOTE | 2020-01-28 19:28 | Progress Note ---
DATE: SUBJECTIVE: Ms. Gordon is doing well. There are no new complaints. Still waiting a place for her to go. REVIEW OF SYSTEMS: Otherwise unremarkable. PHYSICAL EXAMINATION: GENERAL: She is currently alert and oriented. VITAL SIGNS: Stable, currently afebrile. HEENT: She is not icteric. NECK: Supple. CHEST: Clear. HEART: S1 and S2. ABDOMEN: Soft. Bowel sounds present. EXTREMITIES: No edema. SKIN: No rash. LABORATORY DATA: Reviewed. Chart reviewed. MEDICATIONS: Reviewed. IMPRESSION: Right foot osteomyelitis, chronic kidney disease, diabetes mellitus, and neuropathy. Continue Rocephin as ordered. She . White count was slightly higher yesterday. We will recheck again tomorrow. Anemia of chronic disease. Continue with wound care. Continue with antibiotic. MD REGGIE Bangura/JONATHAN /[id number]
[2020-01-28] MEDS: INSULIN GLARGINE 100 UNITS/ML VIAL SQ SCH (21:00)
[2020-01-28] MEDS: ATORVASTATIN 40 MG TAB PO SCH (21:19)
[2020-01-28] MEDS: ROPINIROLE HCL 1 MG TAB PO SCH (21:19)
--- NOTE | 2020-01-28 23:25 | NUR ---
pt resting comfortably in bed no signs of distress pt states no complaints at this time
[2020-01-29] VITALS (7 sets, daily range): BP systolic 132–157; BP diastolic 56–73
[2020-01-29] MEDS: MORPHINE SULFATE INJ 4 MG/ML INJ 1ML IV PRN (00:20)
[2020-01-29] MEDS: PROMETHAZINE 12.5MG/ NACL 0.9% 12.5 MG/50 ML BAG IV PRN ×2 (02:04→21:05)
--- NOTE | 2020-01-29 03:34 | NUR ---
pt resting comfortably in bed no signs of distress pt states no complaints at this time
--- NOTE | 2020-01-29 04:12 | NUR ---
Called Dr. Mcqueen to ask about renewing prn pain medication; left message.
--- NOTE | 2020-01-29 05:07 | NUR ---
Called Dr. Mcqueen, second attempt, to renew prn pain medications, message left.
[2020-01-29 05:08] LABS: BASOPHILS # (AUTO) 0.1 (0.0-0.1); BASOPHILS % 0.4 % (0.0-1.0); EOSINOPHILS # (AUTO) 0.2 (0.0-0.4); EOSINOPHILS % 1.3 % (0.0-6.0); HEMATOCRIT 24.9 % (34.2-44.1); HEMOGLOBIN 7.6 g/dL (12.0-16.0); LYMPHOCYTES # (AUTO) 2.8 (1.0-3.2); LYMPHOCYTES % 17.4 % (18.0-39.1); MEAN CORPUSCULAR HEMOGLOBIN 25.9 pg (28-32); MEAN CORPUSCULAR HGB CONC 30.5 g/dL (31-35); MONOCYTES # (AUTO) 1.6 (0.2-0.8); NEUTROPHILS # (AUTO) 11.4 (2.1-6.9); PLATELET COUNT 443 x10e3/uL (140-360); RED BLOOD COUNT 2.93 x10e6/uL (3.6-5.1); RED CELL DISTRIBUTION WIDTH 14.9 % (11.7-14.4)
[2020-01-29 05:22] LABS: ANION GAP 18.3 mmol/L (8-16); BLOOD UREA NITROGEN 10 mg/dL (7-26); BUN/CREATININE RATIO 9 (6-25); CALCIUM 7.5 mg/dL (8.4-10.2); CARBON DIOXIDE 23 mmol/L (22-29); CHLORIDE 104 mmol/L (98-107); CREATININE, SERUM 1.12 mg/dL (0.57-1.11); EST GLOMERULAR FILTRATION RATE > 60 ML/MIN (60-); GLUCOSE 171 mg/dL (74-118); POTASSIUM 3.3 mmol/L (3.5-5.1); SODIUM 142 mmol/L (136-145)
[2020-01-29] MEDS: MORPHINE SULFATE 2 MG/ML SYR 1ML IV PRN ×4 (05:27→21:05)
[2020-01-29] MEDS: FLUTICASONE/SALMETEROL 115/21 12 GM AERO IH SCH ×2 (06:29→19:55)
[2020-01-29] MEDS: DULOXETINE HCL 30 MG DELAYED RELEASE PO SCH ×3 (09:00→21:00)
[2020-01-29] MEDS: METOCLOPRAMIDE HCL 10 MG TAB PO SCH ×4 (09:18→21:00)
[2020-01-29] MEDS: SODIUM CHLORIDE 0.9% 1000ML 1,000 ML IV SCH ×2 (09:19→21:15)
[2020-01-29] MEDS: HYDRALAZINE HCL 25 MG TAB PO SCH ×3 (09:20→21:00)
[2020-01-29] MEDS: ASPIRIN 81 MG ENTERIC COATED PO SCH (09:20)
[2020-01-29] MEDS: CYANOCOBALAMIN INJ 1,000 MCG/ML VIAL IM SCH (09:20)
[2020-01-29] MEDS: LOSARTAN POTASSIUM 25 MG TAB PO SCH (09:21)
[2020-01-29] MEDS: CARVEDILOL 12.5 MG TAB PO SCH ×2 (09:21→21:00)
[2020-01-29] MEDS: AMLODIPINE BESYLATE 10 MG TAB PO SCH (09:22)
[2020-01-29] MEDS: CLOPIDOGREL BISULFATE 75 MG TAB PO SCH (09:22)
[2020-01-29] MEDS: SODIUM BICARBONATE 650 MG TAB PO SCH ×3 (09:22→21:00)
[2020-01-29] MEDS: MUPIROCIN 2% OINT 22 GM TUBE TOP SCH ×2 (09:22→21:00)
[2020-01-29] MEDS: PANTOPRAZOLE SOD 40 MG TABEC PO SCH ×2 (09:22→21:00)
[2020-01-29] MEDS: INSULIN LISPRO 100 UNIT/1 ML 3ML VIAL SQ SCH ×7 (09:54→21:00)
[2020-01-29] MEDS ORDERED: ACETAMINOPHEN/CODEINE 300MG - 30MG TAB PO PRN (14:45)
--- NOTE | 2020-01-29 14:47 | Progress Note ---
DATE: 01/29/2020 SUBJECTIVE: The patient is seen at bedside, having some discomfort to the right lower extremity. She is denying any history of fever, chills, nausea, or vomiting. OBJECTIVE: VITAL SIGNS: Afebrile, pulse rate 76, respiration 19, blood pressure 155/56, and O2 saturation at 97%. EXTREMITIES: Has a grade 3/4 ulceration, dorsal aspect 1st metatarsophalangeal joint with some necrosis noted down to bone. Has a lot of swelling surrounding the 1st MPJ, right foot when compared to the left. Has a grade 3 ulcer plantar aspect right great toe, measuring 2.5 cm in diameter with the ulcer dorsal aspect also 2.5 cm in diameter, and a grade 2 ulceration lateral aspect 5th metatarsophalangeal joint plantarly, measuring 2 cm in diameter down to subcutaneous tissue. Pedal pulses are palpable, but diminished. Skin temperature warm to touch. CFT to all toes less than 5 seconds. LABORATORY DATA: Show white blood cell count of 16.28, hemoglobin 7.6 with a platelet count of 443, and a blood glucose of 171. ASSESSMENT: Grade 4 ulcer, cellulitis, osteomyelitis, right foot with diabetic neuropathy. PLAN: Under no anesthesia secondary to her neuropathy, sharp excisional debridement of all ulcerations were performed down to muscle, bone, and subcutaneous tissue respectively to the plantar aspect of the right great toe, dorsal aspect of the 1st MPJ, and plantar aspect of the 5th MPJ. Devitalized tissue sharply excised via sharp excisional debridement until good viable bleeding tissue was achieved via the use of a sterile 10 blade. Sterile dressing was applied with Bactroban followed by diluted wet-to-dry Betadine. The patient will be transferred to [facility] for continued IV antibiotics. The patient understands there is a good chance she may need an amputation if not responsive and is to follow up with Dr. Burrell. The patient tolerated the procedure well. JOSEF Carbajal/JONATHAN /[id number]
[2020-01-29] MEDS ORDERED: POTASSIUM CHLORIDE 10MEQ EA PO ONE (15:00)
[2020-01-29] MEDS: CEFTRIAXONE SOD 2 GM/NS 100 ML 100 ML IV SCH (15:33)
--- NOTE | 2020-01-29 16:53 | Progress Note ---
DATE: SUBJECTIVE: Ms. Gordon is feeling better. There are no new complaints. The patient is going to skilled care facility today. REVIEW OF SYSTEMS: HEENT: Negative. PULMONARY: Negative. CARDIAC: Negative. PHYSICAL EXAMINATION: GENERAL: Currently alert and oriented. VITALS: Stable, currently afebrile. HEENT: She is not icteric. NECK: Supple. CHEST: Clear bilateral. HEART: S1 and S2. ABDOMEN: Soft. Bowel sounds present. EXTREMITIES: She did have dressing changes. There is some blood noted on the dressing. IMPRESSION: 1. Osteomyelitis, open wound, status post amputation. 2. Severe peripheral vascular disease. 3. Diabetes mellitus. 4. Neuropathy, continue Rocephin and continue wound care. Diabetic controlled, going to skilled care. Follow up as outpatient. MD REGGIE Bangura/JONATHAN /[id number]
--- NOTE | 2020-01-29 17:00 | NUR ---
Spoke with Dr. Quiroga over phone to report continuous bleeding to right foot after debridement and received orders to hold discharge and he will see pt in the morning.
[2020-01-29 18:58] LABS: HEMATOCRIT 24.3 % (34.2-44.1); HEMOGLOBIN 7.3 g/dL (12.0-16.0)
--- NOTE | 2020-01-29 19:32 | NUR ---
pt resting comfortably in bed no signs of distress pt states no complaints at this time
--- NOTE | 2020-01-29 20:28 | Progress Note ---
DATE: 01/29/2020 CONSULTANTS: 1. Dr. Mckeon. 2. Dr. Quiroga of podiatry. 3. Dr. Sutherland, Nephrology. 4. Dr. Avilez, GI. 5. Dr. Foster, Cardiology. SUBJECTIVE: The patient is status post debridement this morning per Podiatry. She has significant bleeding from the foot. Dressing changed and noted after bleeding. She denies any fever, chills, shortness of breath, nausea, or vomiting. PHYSICAL EXAMINATION: VITAL SIGNS: Temperature 98.7, pulse is 82, respirations 19, blood pressure 132/73, and pulse ox is 94% on room air. GENERAL: No acute distress. HEENT: Normocephalic and atraumatic. NECK: Supple. LUNGS: Clear to auscultation. CARDIOVASCULAR: Regular rate and rhythm. ABDOMEN: Soft and nontender. NEUROLOGIC: Alert, awake, and oriented x3. MUSCULOSKELETAL: Moves all extremities. SKIN: Dry right foot, status post debridement this morning. Still with significant bleeding on the dressing. PSYCH: Calm. LABORATORY DATA: WBC 16.28, hemoglobin 7.6, hematocrit 24.9, and platelets 443. Sodium 142, potassium 3.3, BUN is 10, creatinine 1.12, and calcium 7.5. IMPRESSION: 1. Right foot diabetic ulcer with osteomyelitis to the metatarsal, status post debridement per Podiatry x2 and SATELLITE TV TECHNICIAN INSTALLER. Continue Rocephin IV daily. 2. Leukocytosis. Continue antibiotics. Remains afebrile. 3. Chronic kidney disease. Creatinine is 1.1. Renal on case. 4. Uncontrolled diabetes with hemoglobin A1c of 11.1. Continue sliding scale insulin and Lantus at bedtime. 5. Hypertension. Resume home medications. 6. Gastritis and esophagitis degenerative per EGD. Improving with PPI and antiemetics per GI. 7. Chronic peripheral vascular disease, status post SATELLITE TV TECHNICIAN INSTALLER per cardiology. 8. Jaurf-qv-qeaxtdp anemia. Hemoglobin is 7.6. Considering she has bleeding to the right foot, we will repeat H and H tonight and transfuse if hemoglobin is less than 7. 9. Cirrhosis on imaging. We will follow up outpatient GI and regrader. 10. Deep vein thrombosis prophylaxis. No HUNTER due to anemia. PLAN: 1. Status post debridement per Podiatry this morning. She is noted with increased bleeding to the foot. 2. Discharge has been held due to increased bleeding. We will check H and H and transfuse as needed. Podiatry has been made aware of the increased bleeding and we will see the patient . Dictated by JUANIS Thakkar Debiching MD ELTON Ivan/MODL /[id number]
[2020-01-29] MEDS: ROPINIROLE HCL 1 MG TAB PO SCH (21:00)
[2020-01-29] MEDS: ATORVASTATIN 40 MG TAB PO SCH (21:00)
[2020-01-29] MEDS: INSULIN GLARGINE 100 UNITS/ML VIAL SQ SCH (21:00)
[2020-01-30] VITALS (8 sets, daily range): BP systolic 115–157; BP diastolic 43–72
[2020-01-30] MEDS: MORPHINE SULFATE 2 MG/ML SYR 1ML IV PRN ×5 (01:13→23:27)
[2020-01-30 06:22] LABS: BASOPHILS % 0.3 % (0.0-1.0); EOSINOPHILS # (AUTO) 0.2 (0.0-0.4); EOSINOPHILS % 1.3 % (0.0-6.0); LYMPHOCYTES # (AUTO) 2.2 (1.0-3.2); LYMPHOCYTES % 18.4 % (18.0-39.1); MEAN CORPUSCULAR HEMOGLOBIN 26.1 pg (28-32); MEAN CORPUSCULAR HGB CONC 30.6 g/dL (31-35); MEAN CORPUSCULAR VOLUME 85.4 fL (81-99); MONOCYTES # (AUTO) 1.3 (0.2-0.8); MONOCYTES % 10.5 % (4.4-11.3); NEUTROPHILS # (AUTO) 8.3 (2.1-6.9); NEUTROPHILS % 68.8 % (38.7-80.0); PLATELET COUNT 409 x10e3/uL (140-360); RED BLOOD COUNT 2.53 x10e6/uL (3.6-5.1); RED CELL DISTRIBUTION WIDTH 15.2 % (11.7-14.4)
[2020-01-30 06:46] LABS: HEMATOCRIT 21.6 % (34.2-44.1); HEMOGLOBIN 6.6 g/dL (12.0-16.0)
[2020-01-30] MEDS: FLUTICASONE/SALMETEROL 115/21 12 GM AERO IH SCH ×2 (07:00→19:25)
--- NOTE | 2020-01-30 07:17 | NUR ---
Notified Dr. Mcqueen of critical hemoglobin of 6.6 and received orders of to transfuse one unit of PRBC.
[2020-01-30] MEDS ORDERED: SODIUM CHLORIDE 0.9% 250ML 250 ML IV ONE (07:30)
[2020-01-30] MEDS: PROMETHAZINE 12.5MG/ NACL 0.9% 12.5 MG/50 ML BAG IV PRN ×2 (08:24→14:46)
[2020-01-30] MEDS: METOCLOPRAMIDE HCL 10 MG TAB PO SCH ×4 (09:32→21:55)
[2020-01-30] MEDS: INSULIN LISPRO 100 UNIT/1 ML 3ML VIAL SQ SCH ×7 (09:33→21:00)
[2020-01-30] MEDS: CARVEDILOL 12.5 MG TAB PO SCH ×2 (09:34→21:55)
[2020-01-30] MEDS: CYANOCOBALAMIN INJ 1,000 MCG/ML VIAL IM SCH (09:34)
[2020-01-30] MEDS: HYDRALAZINE HCL 25 MG TAB PO SCH ×3 (09:34→21:55)
[2020-01-30] MEDS: ASPIRIN 81 MG ENTERIC COATED PO SCH (09:34)
[2020-01-30] MEDS: PANTOPRAZOLE SOD 40 MG TABEC PO SCH ×2 (09:35→21:55)
[2020-01-30] MEDS: CLOPIDOGREL BISULFATE 75 MG TAB PO SCH (09:35)
[2020-01-30] MEDS: DULOXETINE HCL 30 MG DELAYED RELEASE PO SCH ×2 (09:35→21:00)
[2020-01-30] MEDS: AMLODIPINE BESYLATE 10 MG TAB PO SCH (09:35)
[2020-01-30] MEDS: LOSARTAN POTASSIUM 25 MG TAB PO SCH (09:35)
[2020-01-30] MEDS: SODIUM BICARBONATE 650 MG TAB PO SCH ×3 (09:36→21:55)
[2020-01-30] MEDS: MUPIROCIN 2% OINT 22 GM TUBE TOP SCH ×2 (09:36→21:00)
[2020-01-30] MEDS: SODIUM CHLORIDE 0.9% 1000ML 1,000 ML IV SCH ×2 (13:59→23:55)
[2020-01-30] MEDS: CEFTRIAXONE SOD 2 GM/NS 100 ML 100 ML IV SCH (14:46)
--- NOTE | 2020-01-30 16:00 | NUR ---
progress note Ms. Gordon is feeling better. There are no new complaints. The patient is going to skilled care facility today. the patient is doing well overall is no new complaints review of systems no new finding but still waiting on discharge planning REVIEW OF SYSTEMS: HEENT: Negative. PULMONARY: Negative. CARDIAC: Negative. PHYSICAL EXAMINATION: GENERAL: Currently alert and oriented. VITALS: Stable, currently afebrile. HEENT: She is not icteric. NECK: Supple. CHEST: Clear bilateral. HEART: S1 and S2. ABDOMEN: Soft. Bowel sounds present. EXTREMITIES: She did have dressing changes. There is some blood noted on the dressing. IMPRESSION: 1. Osteomyelitis, open wound, status post amputation. 2. Severe peripheral vascular disease. 3. Diabetes mellitus. 4. Neuropathy, continue Rocephin and continue wound care. Diabetic controlled, going to skilled care. Follow up as outpatient. continue as ordered
--- NOTE | 2020-01-30 16:50 | Progress Note ---
DATE: 01/30/2020 CONSULTANTS: 1. Dr. Mckeon. 2. Dr. Quiroga, Podiatry. 3. Dr. Sutherland, Nephrology. 4. Dr. Avilez, GI. 5. Dr. Foster, Cardiology. SUBJECTIVE: The patient is resting in bed with no acute distress, right foot bleeding has stopped. Hemoglobin 6.6 this morning and pending transfusion. She denies any fever, chills, shortness of breath, or chest pain. PHYSICAL EXAMINATION: VITAL SIGNS: Temperature 98.0, pulse is 72, respirations 18, blood pressure 117/50, and pulse ox 98% on room air. GENERAL: No acute distress. HEENT: Normocephalic, atraumatic. NECK: Supple. LUNGS: Clear to auscultation. CARDIOVASCULAR: Regular rate and rhythm. ABDOMEN: Soft and nontender. NEUROLOGIC: Alert, awake, and oriented x3. MUSCULOSKELETAL: Moves all extremities. SKIN: Dry, right foot, status post debridement with dressing intact. PSYCH: Calm. LABORATORY DATA: WBC 12.09, hemoglobin 6.6, hematocrit 21.6, and platelet 409. IMPRESSION: 1. Right foot diabetic ulcers with osteomyelitis to the metatarsal, status post debridement per Podiatry x2 and RURAL CARRIER ASSOCIATE. Continue Rocephin IV daily x6 weeks. 2. Leukocytosis. Afebrile, trending down, continue antibiotics. 3. Chronic kidney disease. Creatinine is stable at 1.1, continue to follow Renal. 4. Uncontrolled diabetes. With hemoglobin A1c of 11.1. Continue sliding scale and Lantus at bedtime. 5. Acute on chronic anemia. Hemoglobin is 6.6. We will transfuse one more unit of PRBCs. 6. Hypertension. We will continue home medication. 7. Gastritis and esophagitis per esophagogastroduodenoscopy. Improving with PPI and antiemetics per gastrointestinal. 8. Chronic peripheral vascular disease. Status post RURAL CARRIER ASSOCIATE per Cardiology. 9. Cirrhosis on imaging. We will follow up patient was GI and coupon and bond collection clerk. 10. Deep vein thrombosis prophylaxis. No anticoagulation due to anemia. PLAN: To continue wound care per Podiatry, transfuse 1 unit of PRBCs and plan on discharge to SNF tomorrow. Dictated by JUANIS Thakkar Yiching MD ELTON Ivan/JONATHAN /[id number]
--- NOTE | 2020-01-30 19:30 | NUR ---
pt resting in bed pt treated with prn pain medication per request pt verbalized no complaints at this time
[2020-01-30] MEDS: INSULIN GLARGINE 100 UNITS/ML VIAL SQ SCH (21:00)
[2020-01-30] MEDS: ROPINIROLE HCL 1 MG TAB PO SCH (21:55)
[2020-01-30] MEDS: ATORVASTATIN 40 MG TAB PO SCH (21:55)
[2020-01-30] MEDS: TRAZODONE HCL 50 MG TAB PO PRN (22:59)
[2020-01-31] VITALS: BP 125/54
[2020-01-31 04:00] VITALS: BP 162/86
[2020-01-31 05:40] LABS: ANION GAP 11.3 mmol/L (8-16); CALCIUM 7.3 mg/dL (8.4-10.2); CREATININE, SERUM 1.25 mg/dL (0.57-1.11); MAGNESIUM 1.3 MG/DL (1.3-2.1); PHOSPHORUS 3.2 MG/DL (2.3-4.7); POTASSIUM 3.3 mmol/L (3.5-5.1)
[2020-01-31 06:06] LABS: BASOPHILS # (AUTO) 0.1 (0.0-0.1); BASOPHILS % 0.5 % (0.0-1.0); EOSINOPHILS # (AUTO) 0.2 (0.0-0.4); EOSINOPHILS % 1.6 % (0.0-6.0); HEMATOCRIT 24.6 % (34.2-44.1); HEMOGLOBIN 7.6 g/dL (12.0-16.0); LYMPHOCYTES % 14.3 % (18.0-39.1); MEAN CORPUSCULAR HEMOGLOBIN 26.9 pg (28-32); MEAN CORPUSCULAR HGB CONC 30.9 g/dL (31-35); MEAN CORPUSCULAR VOLUME 86.9 fL (81-99); MONOCYTES # (AUTO) 1.6 (0.2-0.8); MONOCYTES % 11.3 % (4.4-11.3); NEUTROPHILS % 71.6 % (38.7-80.0); PLATELET COUNT 334 x10e3/uL (140-360); RED BLOOD COUNT 2.83 x10e6/uL (3.6-5.1); RED CELL DISTRIBUTION WIDTH 15.9 % (11.7-14.4)
--- NOTE | 2020-01-31 06:44 | NUR ---
RECEIVED BEDSIDE SHIFT REPORT FROM OFF GOING NURSE. PATIENT IS RESTING IN BED, NO ACUTE DISTRESS NOTED. CALL LIGHT WITHIN REACH, BED IN THE LOWEST POSITION.
[2020-01-31] MEDS: FLUTICASONE/SALMETEROL 115/21 12 GM AERO IH SCH (07:00)
[2020-01-31] MEDS: METOCLOPRAMIDE HCL 10 MG TAB PO SCH ×3 (07:30→16:51)
[2020-01-31] MEDS: INSULIN LISPRO 100 UNIT/1 ML 3ML VIAL SQ SCH ×6 (07:30→16:30)
[2020-01-31 07:58] VITALS: BP 142/64
[2020-01-31 08:44] VITALS: BP 142/64
[2020-01-31] MEDS: PANTOPRAZOLE SOD 40 MG TABEC PO SCH (09:00)
[2020-01-31] MEDS: HYDRALAZINE HCL 25 MG TAB PO SCH ×2 (09:00→14:44)
[2020-01-31] MEDS ORDERED: POTASSIUM CHLORIDE 20 MEQ TAB CR PO SCH (09:00)
[2020-01-31] MEDS: CARVEDILOL 12.5 MG TAB PO SCH (09:00)
[2020-01-31] MEDS: MUPIROCIN 2% OINT 22 GM TUBE TOP SCH (09:00)
[2020-01-31] MEDS ORDERED: LOSARTAN POTASSIUM 100 MG TAB PO SCH (09:00)
[2020-01-31] MEDS: DULOXETINE HCL 30 MG DELAYED RELEASE PO SCH (09:00)
[2020-01-31] MEDS: SODIUM BICARBONATE 650 MG TAB PO SCH ×2 (09:00→14:44)
--- NOTE | 2020-01-31 09:43 | Progress Note ---
DATE: 01/31/2020 SUBJECTIVE: The patient at bedside ready to go to [facility], relates she is feeling better, decreased pain to the right lower extremity. Denies any history of fever, chills, nausea, or vomiting. OBJECTIVE: VITAL SIGNS: Afebrile, pulse rate 79, respiration 19, blood pressure 142/64, O2 saturation 93%. LABORATORY DATA: Show white blood cell count of 13.9, hemoglobin up to 7.6, hematocrit 24.6 with a platelet count of 334. Right foot ulceration is looking little bit better, fibrotic necrotic tissue noted down to muscle, plantar aspect right great toe and down to bone overlying the 1st MPJ, right foot. ASSESSMENT: 1. Osteomyelitis. 2. Peripheral arterial disease. 3. Diabetic neuropathy with multiple grade 3 and grade 4 ulcerations. PLAN: We will continue local wound care. Continue IV antibiotics. The patient to follow up with Dr. Burrell. The patient understands that no guarantees or warranties can be given, may end up needing an amputation. JOSEF Carbajal/JONATHAN /[id number]
[2020-01-31] MEDS: CYANOCOBALAMIN INJ 1,000 MCG/ML VIAL IM SCH (09:45)
[2020-01-31] MEDS: PROMETHAZINE 12.5MG/ NACL 0.9% 12.5 MG/50 ML BAG IV PRN (09:45)
[2020-01-31] MEDS: MORPHINE SULFATE 2 MG/ML SYR 1ML IV PRN ×2 (09:54→15:15)
--- NOTE | 2020-01-31 10:17 | NUR ---
Pt refused morning meds because of nausea/vomiting. Gave Promethazine PRN, will reassess.
--- NOTE | 2020-01-31 10:59 | NUR ---
PT NEED TO BE DISCHARGED TODAY OR WILL LOOSE AUTH!
[2020-01-31 12:03] VITALS: BP 154/63
[2020-01-31] MEDS: ASPIRIN 81 MG ENTERIC COATED PO SCH (12:09)
[2020-01-31] MEDS: AMLODIPINE BESYLATE 10 MG TAB PO SCH (12:10)
[2020-01-31] MEDS: CLOPIDOGREL BISULFATE 75 MG TAB PO SCH (12:10)
[2020-01-31] MEDS: SODIUM CHLORIDE 0.9% 1000ML 1,000 ML IV SCH (12:52)
[2020-01-31] MEDS: CEFTRIAXONE SOD 2 GM/NS 100 ML 100 ML IV SCH (14:21)
[2020-01-31 14:44] VITALS: BP 162/78
--- NOTE | 2020-01-31 15:33 | NUR ---
Called report to nurse Elliott at transferring facility. Pt was d/c stable, no distress.
--- NOTE | 2020-01-31 16:48 | NUR ---
SPOKE TO DR. HUGGINS IN REGARDS TO 2 VIEW XRAY AND EMS BEING ON THE WAY TO PICK PATIENT UP. PER , CAIN ORDER. NO NEED FOR X-RAY.
--- NOTE | 2020-01-31 19:12 | Progress Note ---
DATE: SUBJECTIVE: Ms. Gordon is doing well. There is no new complaint. She has a bit shortness of breath today. PHYSICAL EXAMINATION: GENERAL: She is currently alert and oriented. VITAL SIGNS: Stable and afebrile. HEENT: She is not icteric. NECK: Supple. CHEST: Clear. HEART: S1 and S3. ABDOMEN: Soft. Bowel sounds are present. EXTREMITIES: No edema. SKIN: No rash. IMPRESSION: 1. Osteomyelitis. Continue treatment. 2. Shortness of breath. Obtain chest x-ray. O2 saturation. We will follow. MD REGGIE Bangura/JONATHAN /[id number]
--- NOTE | 2020-01-31 22:23 | Discharge Summary ---
PCP: Dr. Viraj Lomeli at [facility]. FINAL DISCHARGE DIAGNOSES: 1. Right foot diabetic ulcer with osteomyelitis to the metatarsal. 2. Leukocytosis. 3. Chronic kidney disease. 4. Uncontrolled diabetes. 5. Sbckp-gk-knslmbc anemia. 6. Hypertension. 7. Gastritis and esophagitis. 8. Chronic peripheral vascular disease. 9. Cirrhosis. CONSULTS: 1. Dr. Mckeon, ID. 2. Dr. Quiroga, outer diameter grinder tool. 3. Dr. Sutherland, Nephrology. 4. Dr. Avilez, GI. 5. Dr. Foster, Cardiology. PROCEDURES: 1. She underwent bedside debridement by Podiatry x2. 2. She underwent FAMILY WORKER per Cardiology. No stent required, just balloon. HISTORY: Per HPI. HOSPITAL COURSE: Ms. Gordon presented with right foot diabetic ulcer and nausea and vomiting. She was started on IV antibiotics per Infectious Disease. Cultures were sent and placed on culture appropriate antibiotics. culture is positive for Enterococcus faecalis and second culture is Streptococcus viridans. Podiatry was consulted and debrided the foot at the bedside. She then had severe nausea and vomiting, so after cardiology clearance, underwent EGD per GI, which showed esophagitis and gastritis. Duodenal polyp was taken. She was started on PPI and antiemetics, which helped with her nausea and vomiting. She was noted to have anemia and iron deficiency, which she received a total of 3 units of PRBCs during her stay as well as Venofer IV. She also underwent FAMILY WORKER with balloon stent per Cardiology. She has been advised about amputation of the foot was reviewed multiple times and wants conservative medical management at this point. She underwent a second debridement and will be discharging to nursing home facility for 6 weeks of IV antibiotic therapy with Rocephin and follow up with Dr. Burrell, outer diameter grinder tool and Dr. Mckeon, Infectious Disease for further intervention. PHYSICAL EXAMINATION: VITAL SIGNS: Temperature 98.6, pulse is 70, respirations 16, blood pressure 164/78, pulse ox is 90% on room air. GENERAL: No acute distress. HEENT: Normocephalic and atraumatic. NECK: Supple. LUNGS: Clear to auscultation. CARDIOVASCULAR: Regular rate and rhythm. ABDOMEN: Soft and nontender. NEUROLOGIC: Alert, awake, and oriented x3. MUSCULOSKELETAL: Moves all extremities. SKIN: Dry. Right foot dressing intact. Psych: Calm. CONDITION AT DISCHARGE: Stable and improved. DISCHARGE MEDICATIONS: Please see medication reconciliation list. FOLLOWUP: Follow up with PCP, Dr. Mckeon, and Dr. Burrell, Podiatry in 1 to 2 weeks. TIME SPENT: Total discharge time is 32 minutes. Dictated by JUANIS Thakkar Debiching Pradeep Mcqueen MD MY/MODL /[id number] cc: Robe Lomeli [facility]
== END 2020-01-31 17:25 | DRG 853 ==
LOC: ER 13:43 → ERHOLD 13:52 → IMCU 17:54 → MED/SURG2 01-21 20:13
PROVIDERS: ADMIT Internal Medicine; ATTEND Internal Medicine
PROC: 02HV33Z Insertion of Infusion Device into Superior Vena Cava, Percutaneous Approach (ICD-10-PCS; 2020-01-16)
PROC: 30233N1 Transfusion of Nonautologous Red Blood Cells into Peripheral Vein, Percutaneous Approach (ICD-10-PCS; 2020-01-17)
PROC: 0JBQ0ZZ Excision of Right Foot Subcutaneous Tissue and Fascia, Open Approach (ICD-10-PCS; 2020-01-19)
PROC: 0DB78ZX Excision of Stomach, Pylorus, Via Natural or Artificial Opening Endoscopic, Diagnostic (ICD-10-PCS; 2020-01-21)
PROC: 02HV33Z Insertion of Infusion Device into Superior Vena Cava, Percutaneous Approach (ICD-10-PCS; principal; 2020-01-26)
PROC: 0QBN0ZZ Excision of Right Metatarsal, Open Approach (ICD-10-PCS; 2020-01-29)
DX: A41.9 Sepsis, unspecified organism (principal); R65.21 Severe sepsis with septic shock; L03.115 Cellulitis of right lower limb; M86.8X7 Other osteomyelitis, ankle and foot; E87.2 Acidosis; L02.611 Cutaneous abscess of right foot; L97.519 Non-pressure chronic ulcer of other part of right foot with unspecified severity; E11.621 Type 2 diabetes mellitus with foot ulcer; K20.9 Esophagitis, unspecified; D64.9 Anemia, unspecified; Z11.59 Encounter for screening for other viral diseases; B95.2 Enterococcus as the cause of diseases classified elsewhere; K29.70 Gastritis, unspecified, without bleeding; K74.60 Unspecified cirrhosis of liver; K63.5 Polyp of colon; E11.69 Type 2 diabetes mellitus with other specified complication; Z91.19 Patient's noncompliance with other medical treatment and regimen; Z89.512 Acquired absence of left leg below knee; E11.319 Type 2 diabetes mellitus with unspecified diabetic retinopathy without macular edema; E11.22 Type 2 diabetes mellitus with diabetic chronic kidney disease; I12.9 Hypertensive chronic kidney disease with stage 1 through stage 4 chronic kidney disease, or unspecified chronic kidney disease; N18.3 Chronic kidney disease, stage 3 (moderate); D51.9 Vitamin B12 deficiency anemia, unspecified; E11.51 Type 2 diabetes mellitus with diabetic peripheral angiopathy without gangrene; Z79.4 Long term (current) use of insulin; R11.2 Nausea with vomiting, unspecified
CPT/HCPCS: 36247; 36415; 36569; 36600; 37224; 37228; 43239; 71045; 75625; 75716; 76700; 76770; 80048; 80053; 80061; 80307; 81001; 82140; 82550; 82553; 82570; 82607; 82746; 82805; 82948; 83036; 83540; 83605; 83690; 83735; 83880; 84100; 84156; 84443; 84466; 84484; 85014; 85018; 85025; 85610; 86850; 86870; 86880; 86900; 86905; 86920; 86922; 87040; 87071; 87075; 87086; 87186; 87205; 88305; 88312; 93005; 93306; 93925; 94640; 96372; 97139; 99001; 99152; 99153; 99284; C1760; C1769; C1887; J0360; J0696; J1644; J1756; J1815; J1817; J2001; J2250; J2270; J2405; J2550; J2765; J3010; J3370; J3420; J7030; J7050; J7799; P9016; Q9967; U0002

== ENCOUNTER 2020-02-17 18:04 | Emergency (ER) | payer OTHER ==
[~2020-02-17] VITALS: Ht 165.1 cm; Wt 77.1 kg
--- OUTSIDE RECORDS SUMMARY | 2020-02-17 18:44 | XMS REPORT | Clinical Summary ---
Author Author KENIS[facility] Address Unknown Phone Unavailable Care Team Providers Care Photogrammetric Stereo Compiler Name Role Phone Viraj Lomeli MD PCP [...] artery disease) 12/04/2018 Coronary artery disease involving [place] coronary art [place] heart 12/04/2018 without angina pectoris Uncontrolled diabetes [...] 01/10/2020 Emergency Emergency Medicine 01/10/2020 Travel after 02/16/2019 Family History Medical History Relation Name Comments Coronary artery disease Brother 3 brothers dec eased f [place] Diabetes Brother Hypertension Brother Cancer Father Diabetes [...] Body Mass Index 28.29 Plan of Treatment Health Maintenance Due Date Last Done Comments DIABETIC EYE EXAM 02/29/1972 DIABETIC FOOT EXAM 02/29/1972 CERVICAL CANCER SCREENING 1983 PAP ONLY (Age 21-65) COLON CANCER SCREENING 05/19/2014 05/19/2013 ANNUAL FOBT MEDICARE ANNUAL WELLNESS 10/18/2014 (YEAR 2 or FIRST YEAR if no IPPE) HEMOGLOBIN A1C 08/31/2018 06/02/2018, 018, 07/28/2016, Additional history exists INFLUENZA VACCINE (#1) 2020 03/09/2019, , 06/17/2017, Additional history exists URINE MICROALBUMIN 10/18/2020 10/19/2019, 019 BREAST CANCER SCREENING 04/14/2021 04/14/2019 LIPID PANEL 04/22/2021 04/22/2018, 018, 12/11/2017 PNEUMOCOCCAL VACCINE 2-64 Completed 08/12/2017, 05/24/2014 YEARS AT RISK Implants Device Identifier Shelf Expiration Date Model / Serial / L ot Implanted Type Area Manufactur er 01/16/2017 4301-02 / [id number] Adhesion Barrier,Seprafilm 5x6 - Cement/Nguyễn N/A: Abdomen GENZYME [id number] ler/Adhesi SURGICAL Implanted: Qty: 1 on 01/16/2015 by ve PRO Cesar Torres MD Results Not on fileafter 02/16/2019 Insurance Payer Benefit Subscriber ID Type Phone Address Plan / Group TEXAN[employer] TEXAN[employer]US xxxxxxxxx [facility] HMO ALL Contracted [id number] Advance Directives For more information, please contact: [facility] [address] [place] [address] Date Inactivated Comments Code Status [...]
[2020-02-17] MEDS ORDERED: SODIUM CHLORIDE 0.9% 1000ML 1,000 ML IV ONE (18:45)
--- OUTSIDE RECORDS SUMMARY | 2020-02-17 18:45 | XMS REPORT | Continuity of Care Document ---
Author Author [facility] t Organization [facility] Address 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 Name Role Phone NONSTAFF PCP Unavailable Diandra ROBBINS Attphys Unavailable Rudy Bautista MD Attphys Mariam YIN Attphys Unavailable ASHISH SEVILLA Attphys Unavailable Cammie BAIRD Attphys Unavailable SHAHRIAR ZURITA Attphys Unavailable THANIA HERNANDEZ Attphys Unavailable ALI, QASAM SANAH Attphys Unavailable ZENOBIA MRÁQUEZ Attphys Unavailable NELIDA, FRANCIS ATASU Attphys Unavailable Annette ANDREWS Attphys Unavailable Diandra ROBBINS Admphys Unavailable Mariam YIN Admphys Unavailable Kain LOPEZ Admphys Unavailable QUITA AMAYA Admphys Unavailable ALI, QASAM SANAH Admphys Unavailable PILY BAIG Admphys Unavailable NELIDA, FRANCIS ATASU Admphys Unavailable ANGEL NICOLASKUMAR Admphys Unavailable Payers Payer Name Policy Type Policy Number Effective Date Expiration Date Mariam Ang Plus [id number] 2019 00:00:00 [facility] Cdc Review Covid19 [id number] [facility] [employer]PLUS HMO ALLxxxxxxxxxMaps Contracted xxxxxxx xx [facility] Problems Condition Name Condition Details Condition Category Status Onset Date Resolution Date Last Treatment Date Treating Clinician Comments Source Acute kidney injury Acute kidney injury Disease Active 2018-12-04 00:00 :00 [facility] Nausea vomiting and diarrhea Nausea vomiting and diarrhea Disease Active 2018-12-04 00:00:00 [facility] Hyperlipidemia Hyperlipidemia Disease Active 2018-12-04 00:00:00 [facility] Gastroesophageal reflux disease without esophagitis Ga stroesophageal reflux disease without esophagitis Disease Active 2018-12-04 00:00:00 [facility] CKD (chronic kidney disease) stage 3, GFR 30-59 ml/min CKD (chronic kidney disease) stage 3, GFR 30-59 ml/min Disease Active 2018-12-04 00:00:00 [facility] PAD (peripheral artery disease) PAD (peripheral artery disease) Dis ease Active 2018-12-04 00:00:00 [facility] Coronary artery disease involving rosebud coronary artery of rosebud heart without angina pectoris Coronary artery disease involving rosebud coronary artery of rosebud heart without angina pectoris Disease Active 2018-12-04 00:00:00 [facility] Uncontrolled diabetes mellitus with hype rglycemia, with long-term current use of insulin Uncontrolled diabetes mellitus with hype rglycemia, with long-term current use of insulin Disease Active 2018-12-03 00:00:00 [facility] Diabetic polyneuropathy associated with type 2 diabete s mellitus Diabetic polyneuropathy associated with type 2 diabetes mellitus Disease Acti ve 2017-12-10 00:00:00 [facility] Chronic diastolic CHF (congestive heart failure) Chron ic diastolic CHF (congestive heart failure) Disease Active 2016-07-28 00:00:00 [facility] Chronic anemia Chronic anemia Disease Active 2013-05-18 00:00:00 Overview: Mixed type [facility] Chronic back pain Chronic back pain Disease Active 2013-05-10 00:00:00 [facility] Essential hypertension Essential hypertension Disease Active 2013-05-10 00:00:00 [facility] Acute hyperglycemia Acute hyperglycemia Problem Active [facility] Back pain of lumbosacral region with sciatica Back froylan n of lumbosacral region with sciatica Problem Active [facility] Hypertensive urgency Hypertensive urgency Problem Active [facility] Diarrhea Diarrhea Problem Active [facility] Leukocytosis Leukocytosis Problem Active [facility] Pneumonia Pneumonia Problem Active [facility] Severe sepsis Sepsis Problem Active [facility] Urinary tract infection UTI (urinary tract infection) Problem Active [facility] Acute respiratory failure Acute respiratory failure Problem Active [facility] Diabetic foot Problem Active [facility] 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 Problem Active [facility] Allergies, Adverse Reactions, Alerts Allergy Name Allergy Type Status Severity Reaction(s) Onset Date Inacti ve Date Treating Clinician Comments Source Lisinopril Allergy to substance Active 2020-01-16 00:00:00 [facility] Tramadol Propensity to adverse reactions Active Moderate VOMI TING 2020-01-16 00:00:00 [facility] Lisinopril Propensity to adverse reactions Active 12-10 00:00:00 Cough [facility] Family History Family Member Diagnosis Comments Start Date Stop Date Source Natural brother Coronary artery disease [facility] Natural brother Diabetes [facility] Natural brother Hypertension [facility] Natural father Cancer [facility] Maternal grandmother Diabetes [facility] Natural mother Coronary artery disease [facility] Natural mother Diabetes [facility] Natural mother Hypertension [facility] Paternal grandfather Cancer [facility] Paternal grandmother Diabetes [facility] Natural sister Cancer [facility] Natural sister Diabetes [facility] Natural sister Hypertension [facility] Social History Social Habit Start Date Stop Date Quantity Comments Source Sex Assigned At [facility] Smoking Status Start Date Stop Date Source Never smoker [facility] Medications Ordered Medication Name Filled Medication Name Start Date Stop Da te Current Medication? Ordering Clinician Indication Dosage Frequency Signature (SIG) Comments Components Source ciprofloxacin HCl (CIPRO) 500 MG tablet 2019-12-08 00:00:00 Yes 500mg Q.5D Take 500 mg by mouth 2 (two) times daily. [facility] clindamycin (CLEOCIN) 300 MG capsule 2019-07-30 00:00:00 Ye s 300mg Take 300 mg by mouth. [facility] Pantoprazole Sodium (Protonix) 40 Mg SUSPDR.PKT Pantop razole Sodium (Protonix) 40 Mg SUSPDR.PKT 2019-04-01 10:25:00 Yes 40 Twice A Day [facility] Levofloxacin (Levaquin) 500 Mg TABLET Levofloxacin (Levaquin ) 500 Mg TABLET 2019-04-01 10:14:00 Yes 500 Daily [facility] Metronidazole (Flagyl) 500 Mg TABLET Metronidazole (Flagyl) 500 Mg TABLET 2019-04-01 10:14:00 Yes 500 Three Times A Day [facility] insulin detemir U-100 (LEVEMIR) 100 unit/mL (3 mL) InPn inje ction 2018-12-04 14:11:17 Yes 56U Inject 56 Units subcutaneously 2 (two) times daily with breakfast and dinner. [facility] pregabalin (LYRICA) 200 MG capsule 2018-12-04 14:11:17 Y es 200mg Q.[id number] Take 200 mg by mouth 3 (three) times daily. [facility] baclofen (LIORESAL) 10 MG tablet 2018-12-04 14:11:16 Yes 10mg Take 10 mg by mouth 2 (two) times daily as needed (for muscle spasms). [facility] albuterol-ipratropium (COMBIVENT RESPIMAT) 20-100 mcg/actuat ion Mist inhaler 2018-12-04 14:11:16 Yes 2{puff} Inhale 2 puffs by mouth via inhaler daily as needed for Wheezing. [facility] hydrALAZINE (APRESOLINE) 50 MG tablet 2018-12-04 14:11:16 Yes 50mg Q.[id number] Take 50 mg by mouth 3 (three) times daily. [facility] insulin aspart (NOVOLOG FLEXPEN U-100 INSULIN SUBQ) 12-04 14:11:16 Yes 38U Inject 38 Units subcutaneously 3 (three) times daily with meals. [facility] acetaminophen-codeine (TYLENOL #3) 300-30 mg per tablet 2018-12-04 14:08:45 Yes 1{tbl} Take 1 tablet by mouth ev [place] 6 (six) hours as needed for Pain. [facility] vals[facility] (DIOVAN) 320 MG tablet 2018-12-04 14:08:12 Yes 320mg QD Take 320 mg by mouth daily . [facility] traZODone (DESYREL) 150 MG tablet 2018-12-04 14:08:12 Yes 150mg QD Take 150 mg by mouth nightly. [facility] hydroCHLOROthiazide (MICROZIDE) 12.5 mg capsule 2018-12-04 14:06 :20 Yes 12.5mg QD Take 12.5 mg by mouth daily . [facility] psyllium husk (KONSYL) 6 gram PwPk packet 2018-02-04 11:24:38 Yes Take by mouth. [facility] torsemide (DEMADEX) 20 MG tablet 2018-01-29 00:00:00 Yes 20mg QD Take 20 mg by mouth daily . [facility] DULoxetine (CYMBALTA) 60 MG capsule 2018-01-27 00:00:00 Yes 60mg Q.5D Take 60 mg by mouth 2 (two) times daily . [facility] aspirin 81 MG EC tablet 2018-01-27 00:00:00 Yes 81mg QD Take 81 mg by mouth daily . [facility] atorvastatin (LIPITOR) 40 MG tablet 2018-01-27 00:00:00 Yes 40mg QD Take 40 mg by mouth daily . [facility] omeprazole (PRILOSEC) 20 MG capsule 2018-01-27 00:00:00 Yes 20mg QD Take 20 mg by mouth daily . [facility] metoprolol (LOPRESSOR) 100 MG tablet 2018-01-20 00:00:00 Ye s 100mg Q.5D Take 100 mg by mouth 2 (two) times daily. [facility] cilostazol (PLETAL) 50 MG tablet 2017-11-20 00:00:00 Yes 50mg Q.5D Take 50 mg by mouth 2 (two) times daily. [facility] clopidogrel (PLAVIX) 75 mg tablet 2017-11-20 00:00:00 Yes 75mg QD Take 75 mg by mouth daily. [facility] fluticasone (FLONASE) 50 mcg/actuation nasal spray 2016-07 00:00:00 Yes USE 2 SPRAYS IN EACH NOSTRIL DAILY [facility] polyethylene glycol (GLYCOLAX) 17 gram packet 2015-02-13 00:00:0 0 Yes 17g Take 17 g by mouth daily as needed (Constipation). [facility] Acetaminophen/Codeine Phosphate (Tylenol # 3*) 1 Ea TA B Acetaminophen/Codeine Phosphate (Tylenol # 3*) 1 Ea TAB Yes 1 Thre e Times A Day [facility] Aspirin (Aspirin Ec) 81 Mg TABLET. Aspirin (Aspirin Ec) 81 Mg TAB LET. Yes 81 Daily [facility] Atorvastatin Calcium Atorvastatin Calcium Yes 40 Bedtime [facility] Baclofen Baclofen Yes 10 Twice A Day [facility] Carvedilol Carvedilol Yes 25 Twice A Day [facility] Duloxetine Hcl (Cymbalta) 30 Mg CAPSULE. Duloxetine Hcl (Cymbalta) 30 Mg CAPSULE. Yes 60 Twice A Day [facility] Famotidine Famotidine Yes 20 Twice A Day [facility] Fluticasone/Salmeterol (Advair Hfa 115-21 Mcg Inhaler) 12 Gm HFA.AER.AD Fluticasone/Salmeterol (Advair Hfa 115-21 Mcg Inhaler) 12 Gm HFA.AER.AD Yes [facility] Hydralazine Hcl Hydralazine Hcl Yes 50 Three Ti mes A Day [facility] Insulin Aspart (Novolog) 100 Units/1 Ml INJ Insulin As part (Novolog) 100 Units/1 Ml INJ Yes [facility] Ipratropium/Albuterol Sulfate (Combivent Respimat Inha l [place]) 4 Gm AER.W.ADAP Ipratropium/Albuterol Sulfate (Combivent Respimat Inhal [place]) 4 Gm AER.W.ADAP Yes 4 [facility] Omeprazole Omeprazole Yes 20 Daily@0600 [facility] Pioglitazone Hcl Pioglitazone Hcl Yes 15 Daily [facility] Pregabalin (Lyrica) 75 Mg CAP Pregabalin (Lyrica) 75 Mg CAP Yes 200 Three Times A Day [facility] Ropinirole Hcl Ropinirole Hcl Yes 1 Daily [facility] Temazepam Temazepam Yes 7.5 [facility] Torsemide Torsemide Yes 20 Daily [facility] Trazodone Hcl Trazodone Hcl Yes 150 Daily [facility] Valsartan (Diovan) 160 Mg TAB Valsartan (Diovan) 160 Mg TAB Yes 320 Daily [facility] Vitamin B Complex & Vit C No.3 (B Complex With Vitamin C) 1 Each CAPSULE Vitamin B Complex & Vit C No.3 (B Complex With Vitamin C) 1 Each CAPSULE Yes [facility] Omeprazole Omeprazole 2019-04-01 00:00:00 No 20 Radha ly [facility] Acetaminophen With Codeine (Tylenol With Codeine #3 Ta blet) 1 Each TABLET Acetaminophen With Codeine (Tylenol With Codeine #3 Tablet) 1 Each TABLET 2019-03-24 00:00:00 No 300 Every 4 Hours as nee ded for Pain [facility] Acetaminophen With Codeine (Tylenol With Codeine #3 Ta blet) 1 Each TABLET Acetaminophen With Codeine (Tylenol With Codeine #3 Tablet) 1 Each TABLET 2019-03-24 00:00:00 No 300 Every 6 Hours as needed for Mild Pain (1-3) Or Fever>100.8 [facility] Aspirin Aspirin 2019-03-24 00:00:00 No 81 Daily [facility] Clopidogrel Bisulfate (Plavix) 75 Mg TABLET Clopidogre l Bisulfate (Plavix) 75 Mg TABLET 2019-03-24 00:00:00 No 75 Daily [facility] Gabapentin Gabapentin 2019-03-24 00:00:00 No 750 Twi ce A Day [facility] Hydralazine Hcl Hydralazine Hcl 2019-03-24 00:00:00 No 50 Three Times A Day [facility] Insulin Aspart (Novolog) 100 Unit/1 Ml CARTRIDGE Insul in Aspart (Novolog) 100 Unit/1 Ml CARTRIDGE 2019-03-24 00:00:00 No 35 [facility] Insulin Npl/Insulin Lispro (Humalog Mix 50-50 Vial) 10 0 Unit/1 Ml VIAL Insulin Npl/Insulin Lispro (Humalog Mix 50-50 Vial) 100 Unit/1 Ml VIAL 2019-03-24 00:00:00 No 35 Three Times A Day [facility] Lisinopril Lisinopril 2019-03-24 00:00:00 No 20 Twi ce A Day [facility] Metoprolol Succinate Metoprolol Succinate 2019-03-24 00:00:00 No 100 Twice A Day [facility] Pregabalin (Lyrica) 25 Mg CAP Pregabalin (Lyrica) 25 Mg CAP 2019-03-24 00:00:00 No 25 Daily [facility] Simvastatin Simvastatin 2019-03-24 00:00:00 No 10 T dixon At 9:00PM [facility] Lisinopril Lisinopril 2017-08-31 00:00:00 No 10 Radha ly [facility] Vital Signs Vital Name Observation Time Observation Value Comments Source Body Temperature 2020-01-31 12:03:00 98.6 [degF] [facility] BMI (Body Mass Index) 2020-01-26 00:06:00 33.2 kg/m2 [facility] Weight 2020-01-16 12:20:00 170 [lb_av] [facility] Systolic blood pressure 2020-01-10 16:50:00 138 mm[Hg] [facility] Diastolic blood pressure 2020-01-10 16:50:00 76 mm[Hg] [facility] Heart rate 2020-01-10 16:50:00 81 /min [facility] Body temperature 2020-01-10 16:50:00 36.72 Gregoria [facility] Respiratory rate 2020-01-10 16:50:00 18 /min [facility] Body height 2020-01-10 16:50:00 165.1 cm [facility] Body weight Measured 2020-01-10 16:50:00 77.111 kg [facility] BMI 2020-01-10 16:50:00 28.29 kg/m2 [facility] Oxygen saturation in Arterial blood by Pulse oximetry 01-09 16:50:00 100 /min [facility] r Procedures Procedure Date / Time Performed Performing Clinician [facility] samy US abdomen complete 2020-01-20 00:00:00 [facility] Ultrasound, renal 2020-01-18 00:00:00 [facility] MRI lower extremity w/o dye 2020-01-17 00:00:00 [facility] Computed tomography of chest with contrast 2019-08-02 00:00:00 KATARZYNA SANDOVAL [facility] ASSISTANCE WITH RESPIRATORY VENTILATION, <24 HRS, CPAP 2019-07-18 6 00:00:00 [facility] EXCISION OF R FOOT SUBCU/FASCIA, OPEN APPROACH 2019-06-23 00:00: 00 [facility] DILATION OF RIGHT ANTERIOR TIBIAL ARTERY, PERC APPROACH 00:00:00 [facility] DILATION OF RIGHT PERONEAL ARTERY, PERCUTANEOUS APPROACH 2019-05 00:00:00 [facility] EXTIRPATION OF MATTER FROM R ANT TIB ART, PERC APPROACH 00:00:00 [facility] EXTIRPATION OF MATTER FROM R PERONEAL ART, PERC APPROACH 2019-05 00:00:00 [facility] FLUOROSCOPY OF AORTA, BI LE ART USING L OSM CONTRAST 2019-06-18 00:00:00 [facility] EXCISION OF LOWER ESOPHAGUS, ENDO, DIAGN 2019-06-17 00:00:00 [facility] EXCISION OF STOMACH, PYLORUS, ENDO, DIAGN 2019-06-17 00:00:00 [facility] Ultrasound, renal 2019-06-15 00:00:00 MARICRUZ ROONEYJOCELYN [facility] DETACHMENT AT RIGHT 4TH TOE, COMPLETE, OPEN APPROACH 2019-06-14 00:00:00 [facility] EXCISION OF R FOOT SUBCU/FASCIA, OPEN APPROACH 2019-06-14 00:00: 00 [facility] INSERTION OF INFUSION DEV INTO SUP VENA CAVA, PERC APPROACH 2019-06-14 00:00:00 [facility] TRANSFUSE NONAUT RED BLOOD CELLS IN PERIPH VEIN, PERC 2019-06-13 00:00:00 [facility] MRI lower extremity w/o dye 2019-06-13 00:00:[address] [facility] [address] of abdomen and pelvis without contrast 2019-06-11 00:00:00 [facility] US Abdomen limited 2019-06-09 00:00:00 NO AL [facility] X-ray of chest, single view 2019-06-08 00:00:00 MADI DUKE [facility] Plan of Care Planned Activity Planned Date Details Comments Source Future Scheduled Test 2021-04-22 00:00:00 Lipid panel (proce dure) [code = 26613129] [facility] Future Scheduled Test 2021-04-14 00:00:00 Screening for millie gnant neoplasm of breast (procedure) [code = 494910720] [facility] Future Scheduled Test 2020-10-18 00:00:00 Urine screening fo r protein (procedure) [code = 833541856] [facility] Future Scheduled Test 2020-01-18 00:00:00 INFLUENZA VACCINE (#1) [code = INFLUENZA VACCINE (#1)] [facility] Future Scheduled Test 2018-08-31 00:00:00 Hemoglobin A1c lucio surement (procedure) [code = 69483678] [facility] Future Scheduled Test 2014-10-18 00:00:00 MEDICARE ANNUAL WE LLNESS (YEAR 2 or FIRST YEAR if no IPPE) [code = MEDICARE ANNUAL WELLNESS (YEAR 2 or FIRST YEAR if no IPPE)] [facility] Scheduled Test 2014-05-19 00:00:00 Screening for millie gnant neoplasm of colon (procedure) [code = 967557260] [facility] Future Scheduled Test 1983 00:00:00 Screening for millie gnant neoplasm of cervix (procedure) [code = 176725697] [facility] Future Scheduled Test 1972-02-29 00:00:00 DIABETIC EYE EXAM [code = DIABETIC EYE EXAM] [facility] Future Scheduled Test 1972-02-29 00:00:00 Diabetic foot exam ination (regime/therapy) [code = 452660919] [facility] Encounters Start Date/Time End Date/Time Encounter Type Admission Type [facility] Care Department Encounter ID Source 2020-01-16 13:52:00 2020-01-31 17:25:00 Discharged Inpatient 1 ITZEL [facility] [id number] [facility] 2019-08-02 17:30:00 2019-08-06 19:40:00 Discharged Inpatient 1 DEIRDRE YIN [facility] [id number] [facility] 2019-06-08 19:27:00 2019-06-26 21:01:00 Discharged Inpatient 1 ITZEL [facility] [id number] [facility] 2019-03-25 13:10:00 2019-04-01 12:32:00 Discharged Inpatient 1 AMINAH ROBBINS [facility] [id number] [facility] 2018-12-01 18:06:00 2018-12-01 20:47:00 Departed Emergency Room 1 EVANGELINA BAIRD [facility] [id number] [facility] 2018-08-16 19:58:00 2018-08-18 15:04:00 Discharged Inpatient (obs) 1 ITZEL [facility] [id number] [facility] 2018-08-10 16:44:00 2018-08-10 17:54:00 Departed Emergency Room [facility] [id number] [facility] 2017-08-19 19:30:00 2017-08-31 15:38:00 Discharged Inpatient ER ITZEL [facility] [id number] [facility] Results Test Description Test Time Test Comments Results Result Comments Source Blood leukocytes automated count (number/volume) 2020-01-31 05:55:00 Test Item White Blood Count (test code = 6690-2) 13.99 4.8-10.8 [facility] count (number/volume)2020-01-31 05:55:00* Test Item Value Reference Range Interpretation Comments Red Blood Count (test code = 789-8) 2.83 3.6-5.1 [facility] (moles/volume)2020-01-31 05:55:00* Test Item Value Reference Range Interpretation Comments Hemoglobin (test code = 39161-0) 7.6 12.0-16.0 [facility] hematocrit (volume fraction)2020-01-31 05:55:00* Test Item Value Reference Range Interpretation Comments Hematocrit (test code = 4544-3) 24.6 34.2-44.1 [facility] mean corpuscular [id number] 05:55:00* Test Item Value Reference Range Interpretation Comments Mean Corpuscular Volume (test code = 787-2) 86.9 81-99 [facility] mean corpuscular hemoglobin (mass per erythrocyte)2020-01-31 05:55:00* Test Item Value Reference Range Interpretation Comments Mean Corpuscular Hemoglobin (test code = 785-6) 26.9 28-32 [facility] mean corpuscular hemoglobin concentration measurement (mass/volume)2020-01-31 05:55:00* Test Item Value Reference Range Interpretation Comments Mean Corpuscular Hemoglobin Concent (test code = 786-4) 30.9 31-35 [facility] Hospital[facility]DW [id number] 05:55:00* Test Item Value Reference Range Interpretation Comments Red Cell Distribution Width (test code = 19935-9) 15.9 11.7 -14.4 [facility] platelet count (count/volume)2020-01-31 05:55:00* Test Item Value Reference Range Interpretation Comments Platelet Count (test code = 777-3) 334 140-360 [facility] segmented neutrophil count as percentage of total [id number] 05:55:00* Test Item Value Reference Range Interpretation Comments Neutrophils (%) (Auto) (test code = 13118-3) 71.6 38.7-80.0 [facility] lymphocyte count as percentage ot total [id number] 05:55:00* Test Item Value Reference Range Interpretation Comments Lymphocytes (%) (Auto) (test code = 736-9) 14.3 18.0-39.1 [facility] monocyte count as percentage of total [id number] 05:55:00* Test Item Value Reference Range Interpretation Comments Monocytes (%) (Auto) (test code = 5905-5) 11.3 4.4-11.3 [facility] eosinophil count as percentage of total [id number] 05:55:00* Test Item Value Reference Range Interpretation Comments Eosinophils (%) (Auto) (test code = 713-8) 1.6 0.0-6.0 [facility] basophil count as percentage of total [id number] 05:55:00* Test Item Value Reference Range Interpretation Comments Basophils (%) (Auto) (test code = 706-2) 0.5 0.0-1.0 [facility] HospitalFluoroscopic procedure less than one hour [id number] 05:55:00* Test Item Value Reference Range Interpretation Comments IM GRANULOCYTES % (test code = IM GRANULOCYTES %) 0.7 0.0- 1.0 [facility] neutrophil count 2020-01-31 05:55:00* Test Item Value Reference Range Interpretation Comments Neutrophils # (Auto) (test code = 751-8) 10.0 2.1-6.9 [facility] lymphocytes count (number/volume) 2020-01-31 05:55:00* Test Item Value Reference Range Interpretation Comments Lymphocytes # (Auto) (test code = 92908-4) 2.0 1.0-3.2 [facility] monocytes automated count (number/volume)2020-01-31 05:55:00* Test Item Value Reference Range Interpretation Comments Monocytes # (Auto) (test code = 742-7) 1.6 0.2-0.8 [facility] HospitalAutomated blood eosinophil count 2020-01-31 05:55:00* Test Item Value Reference Range Interpretation Comments Eosinophils # (Auto) (test code = 711-2) 0.2 0.0-0.4 [facility] HospitalAutomated blood basophil count (count/volume)2020-01-31 05:55:00* Test Item Value Reference Range Interpretation Comments Basophils # (Auto) (test code = 704-7) 0.1 0.0-0.1 [facility] HospitalFluoroscopic procedure less than one hour sqqakfne0177-59-13 05:55:00* Test Item Value Reference Range Interpretation Comments Absolute Immature Granulocyte (auto (gretchen t code = Absolute Immature Granulocyte (auto) 0.10 0-0.1 [facility] sodium measurement (moles/volume)2020-01-31 04:40:00* Test Item Value Reference Range Interpretation Comments Sodium Level (test code = 2951-2) 140 136-145 [facility] or plasma potassium measurement (moles/volume)2020-01-31 04:40:00* Test Item Value Reference Range Interpretation Comments Potassium Level (test code = 2823-3) 3.3 3.5-5.1 [facility] or plasma chloride measurement (moles/volume)2020-01-31 04:40:00* Test Item Value Reference Range Interpretation Comments Chloride Level (test code = 2075-0) 107 98-107 [facility] or plasma carbon dioxide, total measurement (moles/volume)2020-01-31 04:40:00* Test Item Value Reference Range Interpretation Comments Carbon Dioxide Level (test code = 2028-9) 25 22-29 [facility]ere[facility] or plasma anion icv8165-50-28 04:40:00* Test Item Value Reference Range Interpretation Comments Anion Gap (test code = 16962-3) 11.3 8-16 [facility]ere[facility] or plasma urea nitrogen measurement (mass/volume)2020-01-31 04:40:00* Test Item Value Reference Range Interpretation Comments Blood Urea Nitrogen (test code = 3094-0) 12 7-26 [facility] or plasma creatinine measurement (mass/volume)2020-01-31 04:40:00* Test Item Value Reference Range Interpretation Comments Creatinine (test code = 2160-0) 1.25 0.57-1.11 [facility] or plasma urea nitrogen/creatinine mass jfkcm9433-34-50 04:40:00* Test Item Value Reference Range Interpretation Comments BUN/Creatinine Ratio (test code = 3097-3) 10 6-25 [facility] HospitalEstimated glomerular filtration rate (GFR) luhgscclgkpru6602-21-21 04:40:00* Test Item Value Reference Range Interpretation Comments Estimat Glomerular Filtration Rate (test code = 029572389) 53 >60 Ranges were taken from the National Kidney Disease Education Program and the [facility] literature.Reference ranges:60 or greater: Qjuxlb49-22 ( for 3 consecutive months): Chronic kidney disease 15 or less: Kidney failureResolute Health HospitalGlucose ojdfwompivw6968-60-65 04:40:00* Test Item Value Reference Range Interpretation Comments Glucose Level (test code = YQT5942) 230 74-118 [facility]ere[facility] or plasma calcium measurement (mass/volume)2020-01-31 04:40:00* Test Item Value Reference Range Interpretation Comments Calcium Level (test code = 70334-4) 7.3 8.4-10.2 [facility] HospitalPhosphorus ynfmrctpinm5130-29-52 04:40:00 * Test Item Value Reference Range Interpretation Comments Phosphorus Level (test code = HJV3990) 3.2 2.3-4.7 [facility]ere[facility] or plasma magnesium measurement (mass/volume)2020-01-31 04:40:00* Test Item Value Reference Range Interpretation Comments Magnesium Level (test code = 44618-8) 1.3 1.3-2.1 [facility]ererum or plasma total bilirubin measurement (mass/volume)2020-01-27 06:00:00* Test Item Value Reference Range Interpretation Comments Total Bilirubin (test code = 1975-2) 0.4 0.2-1.2 [facility] HospitalFluoroscopic procedure less than one hour ajstustq8159-10-17 06:00:00* Test Item Value Reference Range Interpretation Comments Aspartate Amino Transf (AST/SGOT) (test code = Aspartate Amino Transf (AST/SGOT)) 28 5-34 [facility]ererum or plasma alanine aminotransferase measurement (enzymatic activity/volume)2020-01-27 06:00:00* Test Item Value Reference Range Interpretation Comments Alanine Aminotransferase (ALT/SGPT) (test code = 1742-6) 25 0-55 [facility]ere[facility] or plasma protein measurement (mass/volume)2020-01-27 06:00:00* Test Item Value Reference Range Interpretation Comments Total Protein (test code = 2885-2) 6.7 6.5-8.1 [facility] or plasma albumin measurement (mass/volume)2020-01-27 06:00:00* Test Item Value Reference Range Interpretation Comments Albumin (test code = 1751-7) 3.3 3.5-5.0 [facility] HospitalPlasma globulin measurement (mass/volume) 2020-01-27 06:00:00* Test Item Value Reference Range Interpretation Comments Globulin (test code = 99384-5) 3.4 2.3-3.5 [facility]ererum or plasma albumin/globulin mass aoqwp4919-59-29 06:00:00* Test Item Value Reference Range Interpretation Comments Albumin/Globulin Ratio (test code = 1759-0) 1.0 0.8-2.0 [facility]ererum or plasma alkaline phosphatase measurement (enzymatic activity/volume)2020-01-27 06:00:00* Test Item Value Reference Range Interpretation Comments Alkaline Phosphatase (test code = 6768-6) 145 40-150 [facility] HospitalCHEST XRAY LINE DMVQHXDFD7889-47-06 14:52:00 [facility] [address] [place] [address] Patient Name: ANDREA HOOVER MR #: [id number] : 1960 Age/Sex: 59/F Req #: [id number] Adm Physician: AMINAH ROBBINS MD Ordered by: AMINAH ROBBINS MD Report #: [id number] Location: MED/SURG2 Room/Bed: [facility] Procedure: DX/CHEST XRA Y LINE PLACEMENT Exam Date: 01/26/20 Exam Time: 1438 REPORT STATUS: Signed EXAM: ZOFIA ARANGO XRAY LINE PLACEMENT DATE: 01/26/2020 2:38 PM INDICATION: PICC plac ement COMPARISON: 01/16/2020 FINDINGS/IMPRESSION: There has been in terval placement of a right-sided PICC line with distal tip terminating approp riately over the SVC. Right IJ coursing central venous catheter identified in stable position. The trachea is midline. There are increased interstitial o pacities identified bilaterally with a lower lung zone predominance, slightly more prominent than the prior examination. There is no evidence for large foca l consolidation, pneumothorax, or significant volume pleural effusion. Th e cardiomediastinal silhouette is stable in appearance. No acute osseous abnor mality is identified. Signed by: Dr. Nura Lobato MD on 01/26/2020 2:54 PM Dictated By: NURA LOBATO MD 53 Transcribed By: RUCHI on 01/26/20 1454 COPY TO: LOGAN ROBBINS MD Capillary blood glucose measurement by glucometer (mass/volume)2020-01-26 10:33:00* Test Item Value Reference Range Interpretation Comments Bedside Glucose (test code = 18570-0) 243 70-120 Meter ID: [id number] Health HospitalProthrombin time (PT) in platelet poor plasma by coagulation fdegh2734-23-23 05:00:00* Test Item Value Reference Range Interpretation Comments Prothrombin Time (test code = 5902-2) 15.1 11.9-14.5 [facility] HospitalINR in Platelet poor plasma by Coagulation jehjr2872-72-69 05:00:00* Test Item Value Reference Range Interpretation Comments Prothromb Time International Ratio (test code = 6301-6) 1.13 Oral Anticoagulant Therapy INR Values:1. Low Intensity Therapy 1.5 - 2.02 . Moderate Intensity Therapy 2.0 - 3.03. High Intensity Therapy(1) 2.5 - 3. 54. High Intensity Therapy(2) 3.0 - 4.05. Panic Value INR > 5.0 [facility] HospitalFluoroscopic procedure less than one hour abnhjbyu1482-60-81 05:30:00* Test Item Value Reference Range Interpretation Comments Hemoglobin A1c Percent (test code = Hemoglobin A1c Percent) 11.1 4.0-7.0 [facility] or plasma triglyceride measurement (mass/volume)2020-01-21 05:30:00* Test Item Value Reference Range Interpretation Comments Triglycerides Level (test code = 2571-8) 116 0-149 [facility]ere[facility] or plasma cholesterol measurement (mass/volume)2020-01-21 05:30:00* Test Item Value Reference Range Interpretation Comments Cholesterol Level (test code = 2093-3) 99 0-199 Less than 200 mg/dL Low Ozfd660 - 239 mg/dL Borderline Xszt160 m g/dl and greater High Risk [facility] or plasma cholesterol in LDL measurement (mass/volume) 2020-01-21 05:30:00* Test Item Value Reference Range Interpretation Comments LDL Cholesterol (test code = 2089-1) 59 60-130 [facility]ererum or plasma cholesterol in HDL measurement (mass/volume)2020-01-21 05:30:00* Test Item Value Reference Range Interpretation Comments HDL Cholesterol (test code = 2085-9) 17 40-60 [facility]ererum or plasma total cholesterol/cholesterol in HDL mass ewstl6123-81-48 05:30:00* Test Item Value Reference Range Interpretation Comments Cholesterol/HDL Ratio (test code = 9830-1) 5.8 3.0-3.6 [facility] HospitalBNP Pbq-bFjn1942-63-04 05:30:00* Test Item Value Reference Range Interpretation Comments B-Type Natriuretic Peptide (test code = 33344-0) 107.8 0-100 [facility] or plasma thyrotropin measurement by detection limit <= 0.005 miu/l (units/volume)2020-01-21 05:30:00* Test Item Value Reference Range Interpretation Comments Thyroid Stimulating Hormone (TSH) (test code = 00030-9) 1.648 0.350-4.940 [facility] HospitalUS ABDOMEN IKVIPNAC8373-75-69 12:55:00 [facility] [address] [place] [address] Patient Name: ANDREA HOOVER MR #: [id number] : 1960 Age/Sex: 59/F Req #: [id number] Adm Physician: AMINAH ROBBINS MD Ordered by: DEISY MATHUR MD Report #: [id number] Location: [facility] Room/Bed: [address] Procedure: [id number] US/US ABDOM EN COMPLETE Exam Date: 01/20/20 Exam Time: 1122 REPORT STATUS: Signed Abdominal u ltrasound. History: Nausea and vomiting. Comparison: Renal ultrasou nd 01/18/2020. Discussion: Transverse and longitudinal images of the abdomen were obtained demonstrating heterogeneous echogenicity of the liver with sligh t nodularity of the liver surface contour, with the liver measuring 17.4 cm in length. There is no focal hepatic lesion. The portal vein is patent with hepa topetal flow and is within normal limits measuring 11 mm in diameter. The biliary tree is within normal limits with the common bile duct alis uring 5 mm in diameter. The gallbladder is absent. The kidneys are normal in size and echogenicity bilaterally without evidence of hydroneph rosis, stones, or mass. An oval anechoic structure is present in the left karolyn l lower pole measuring 1.7 x 1.3 cm. The right kidney measures 11.6 cm and the left kidney measures 10.8 cm in length. The spleen is absent. The pancre atic head and body are visualized and are normal in appearance. The abdominal aorta and IVC are within normal limits. There is no evidence of free fluid. IMPRESSION: 1. Mild hepatomegaly with findings suggestive of cirrho sis, without focal hepatic abnormality. 2. Status post cholecystectomy and s plenectomy. 3. Simple benign left renal cyst. Signed by: Phill Nelson on 01/20/2020 1:01 PM Dictated By: PHILL NELSON MD 1301 Transcribed By: RUCHI on 01/20/20 1301 COPY TO: DEISY MATHUR MD Bacteria identification in wound by qlzkjpn7221-96-70 20:15:00* Test Item Value Reference Range Interpretation Comments Wound Culture (test code = 6462-6) STREPTOCOCCUS VIRIDANS [facility] HospitalFluoroscopic procedure less than one hour uabwlzxf6644-09-52 03:29:00* Test Item Value Reference Range Interpretation Comments Lactic Acid Level (test code = Lactic Acid Level) 0.6 0.5- 2.0 [facility] HospitalAmmonia Tvl-lYpb0678-60-02 03:29:00* Test Item Value Reference Range Interpretation Comments Ammonia (test code = 37600-7) 54 31-123 [facility] HospitalUrine color tmwbtbamenscs7620-48-37 01:10:00* Test Item Value Reference Range Interpretation Comments Urine Color (test code = 5778-6) YELLOW YELLOW [facility] HospitalUrine aybucbg4625-84-48 01:10:00* Test Item Value Reference Range Interpretation Comments Urine Clarity (test code = 72241-1) SL CLOUDY CLEAR [facility] Centerpecific gravity of Urine by Test strip 2020-01-19 01:10:00* Test Item Value Reference Range Interpretation Comments Urine Specific [place] (test code = 5811-5) 1.025 1.010-1.02 5 [facility] HospitalUrine pH measurement by automated test wbhoi5494-31-41 01:10:00* Test Item Value Reference Range Interpretation Comments Urine pH (test code = 55197-3) 5.5 5-7 [facility] HospitalUrine leukocyte esterase detection by kaudaxqd2647-69-39 01:10:00* Test Item Value Reference Range Interpretation Comments Urine Leukocyte Esterase (test code = 5799-2) NEGATIVE NEGATIVE [facility] HospitalUrine nitrite uhknnxbgu7893-98-35 01:10:00* Test Item Value Reference Range Interpretation Comments Urine Nitrite (test code = 38646-6) NEGATIVE NEGATIVE [facility] HospitalUrine protein measurement by test strip (mass/volume)2020-01-19 01:10:00* Test Item Value Reference Range Interpretation Comments Urine Protein (test code = 5804-0) >=300 NEGATIVE [facility] HospitalUrine glucose tktygfjji2201-82-42 01:10:00* Test Item Value Reference Range Interpretation Comments Urine Glucose (UA) (test code = 2349-9) NEGATIVE NEGATIVE [facility] HospitalUrine ketones detection by automated test imaio1282-32-98 01:10:00* Test Item Value Reference Range Interpretation Comments Urine Ketones (test code = 50121-2) NEGATIVE NEGATIVE [facility] HospitalUrine urobilinogen measurement by test strip (mass/volume)2020-01-19 01:10:00* Test Item Value Reference Range Interpretation Comments Urine Urobilinogen (test code = 50236-2) 0.2 0.2-1 [facility] HospitalUrine total bilirubin measurement (mass/volume)2020-01-19 01:10:00* Test Item Value Reference Range Interpretation Comments Urine Bilirubin (test code = 1978-6) NEGATIVE NEGATIVE [facility] HospitalUrine erythrocytes txunwexnz9057-88-41 01:10:00* Test Item Value Reference Range Interpretation Comments Urine Blood (test code = 67742-6) NEGATIVE NEGATIVE [facility] HospitalAutomated urine sediment leukocyte count by microscopy (number/high power field)2020-01-19 01:10:00* Test Item Value Reference Range Interpretation Comments Urine WBC (test code = 5821-4) 0-5 0-5 [facility] HospitalErythrocytes detection in urine sediment by light xyhwuxafyu5152-46-90 01:10:00* Test Item Value Reference Range Interpretation Comments Urine RBC (test code = 57468-2) 0-5 0-5 [facility] HospitalBacteria detection in urine sediment by light xchmigkxmu1566-07-44 01:10:00* Test Item Value Reference Range Interpretation Comments Urine Bacteria (test code = 24329-6) FEW NONE [facility] HospitalEpithelial cells detection in urine sediment by light evquxmmorr4360-78-72 01:10:00* Test Item Value Reference Range Interpretation Comments Urine Epithelial Cells (test code = 55127-3) MODERATE NONE [facility] HospitalAmorphous sediment detection in urine sediment by light biyuuqjqoe5843-01-39 01:10:00* Test Item Value Reference Range Interpretation Comments Urine Amorphous Sediment (test code = 8246-1) MANY FEW [facility] HospitalUrine protein measurement (mass/volume) 2020-01-19 01:10:00* Test Item Value Reference Range Interpretation Comments Urine Random Total Protein (test code = 2888-6) 161.6 1-14 [facility] HospitalUrine creatinine measurement (mass/volume)2020-01-19 01:10:00* Test Item Value Reference Range Interpretation Comments Urine Creatinine (test code = 2161-8) 156.31 47-110 [facility] HospitalRandom urine protein/creatinine ratio 2020-01-19 01:10:00* Test Item Value Reference Range Interpretation Comments Urine Protein/Creatinine Ratio (test code = 80158-2) 1.00 [facility] HospitalUS RENAL RETROPERITONEAL NUNN1201-85-09 13:12:00 [facility] [address] [place] [address] Patient Name: ANDREA HOOVER MR #: [id number] : 1960 Age/Sex: 59/F Req #: [id number] Adm Physician: AMINAH ROBBINS MD Ordered by: NEVIN IGNACIO, SANDRA IGNACIO Report #: [id number] Location: [facility] Room/Bed: [place] [address] Procedure: [id number] US/US RENAL RETROPERITONEAL COMP Exam Date: 01/18/20 Exam Time: 1116 REPORT STATUS: Signed Renal ultrasound. History: Acute kidney injury. Comparison: 06/15/2019. Discussion: Transverse and longitudinal images of the kidneys were obtained demonstrating normal renal sizes and echogenicities. There is no evidence of hydronephrosis, mass, or renal calculus. The right kidney measures 10.6 cm and the left kidney measures 13.1 cm in length. Stable left inferior pole cyst measuring up to 1.2 cm. The urinary bladder is unremarkable with prevoid vo lume estimate of 428 cc. Ureteral jets are not visualized. There is no e vidence of free fluid. IMPRESSION: 1. Negative for hydronephrosis, obstructing calculus or perinephric fluid collection. 2. Moderately distend ed urinary bladder. Ureteral jets are not visualized, nonspecific. Correlate w ith ability to urinate. Signed by: Phu Jones MD on 01/18/2020 1:14 PM Dictated By: PHU JONES MD 131 Transcribed By: RUCHI on 01/18/20 1314 COPY TO: SA JORGE ROONEY MRI FOOT RIGHT [id number] 09:57:[address] [place] [address] Patient Name: ANDREA HOOVER MR #: [id number] : 1960 Age/Sex: 59/F Req #: [id number] Adm Physician: KAYA VAN MD Ordered by: JOSH PRATER DPIan Report #: [id number] Location: [facility] Room/Bed: [place] [address] Procedure: [id number] MRI/MRI FOOT R IGHT WO Exam Date: Exam Time: REPORT STATUS: Signed TECHNIQUE: Magnetic resonance imaging of the right foot was performed WITHOUT injected contrast. HIS TORY: foot pain, evaluate infection COMPARISON: None available. DISCUSSIO N: Soft tissue ulceration of the medial aspect of the forefoot. Absce ss in the plantar soft tissues of the forefoot extending approximately 3.3 cm and 1.5 x 1 cm in axial dimension. The flexor hallucis longus tendon is tor n and retracted proximally with infectious tenosynovitis extending along its c ourse from the distal phalangeal insertion to the retracted tendon which exten ds overall approximately 9 cm with maximal axial dimension of 1.3 x 1 cm. Bone marrow edema and T1 replacement involving the phalanges and the entirety of the first metatarsal. Additional soft tissue ulceration of the lateral forefoot focus of marrow edema and transverse T1 signal change at the fifth me tacarpal neck. Scattered degenerative change at the tarsometatarsal articul ations. Posttraumatic deformity of the third proximal phalanx. Lateral subluxa tion and angulation of the second and third proximal phalanges. IMP RESSION: Osteomyelitis of the phalanges and entire metatarsal of the hallu x. Plantar soft tissue abscess and torn/retracted flexor hallucis longus te ndon with infectious tenosynovitis. Likely subacute transverse fracture o f the fifth metatarsal neck. Superimposed osteomyelitis evaluation is limited. Signed by: Dr. Jimi Lundy M.D. on 01/17/2020 10:10 AM Dictated By: JIMI LUNDY MD 1010 COPY TO: JOSH PRATER M Serum or plasma iron measurement (mass/volume)2020-01-17 06:25:00* Test Item Value Reference Range Interpretation Comments Iron Level (test code = 2498-4) 13 50-170 [facility] or plasma iron binding capacity measurement (mass/volume)2020-01-17 06:25:00* Test Item Value Reference Range Interpretation Comments Total Iron Binding Capacity (test code = 2500-7) 146 261-[address] [facility]ere[facility] or plasma iron saturation measurement (mass fraction)2020-01-17 06:25:00* Test Item Value Reference Range Interpretation Comments Percent Iron Saturation (test code = 2502-3) 9 15-50 [facility]ere[facility] or plasma transferrin measurement (mass/volume)2020-01-17 06:25:00* Test Item Value Reference Range Interpretation Comments Transferrin (test code = 3034-6) 104 180-382 [facility] HospitalBlood cobalamin (vitamin B12) measurement (mass/volume)2020-01-17 06:25:00* Test Item Value Reference Range Interpretation Comments Vitamin B12 Level (test code = 22873-4) 249 213-816 [facility]ere[facility] or plasma folate measurement (mass/volume)2020-01-17 06:25:00* Test Item Value Reference Range Interpretation Comments Folate (test code = 2284-8) 5.7 >3.0 A serum folate concentration of less than 3.1 ng/mL isconsidered to represent cl inical deficiency.Performed at: [facility] [address] [id number] Director: Manjeet Pritchard MD, Phone: [phone] Health HospitalUrine opiates screening qwpa8718-81-35 05:20:00* Test Item Value Reference Range Interpretation Comments Urine Opiates Screen (test code = 19712-7) NEGATIVE NEGATIVE ALL TESTS PERFORMED MANUALLY ON Snapsheet TOX/SEE TESTResolute Health HospitalBarbiturates screen, bdemn3592-06-73 05:20:00* Test Item Value Reference Range Interpretation Comments Urine Barbiturates Screen (test code = 553593281) NEGATIVE NEGA TIVE [facility] HospitalUrine phencyclidine detection by screening fwbmov0496-95-24 05:20:00* Test Item Value Reference Range Interpretation Comments Urine Phencyclidine Screen (test code = 89826-0) NEGATIVE NEGAT GLENIS [facility] HospitalUrine amphetamines detection by screen method > 1000 ng/aU5217-49-84 05:20:00* Test Item Value Reference Range Interpretation Comments Urine Amphetamines Screen (test code = 55290-9) NEGATIVE NEGATI VE [facility] HospitalFluoroscopic procedure less than one hour tdmhhhep3394-59-51 05:20:00* Test Item Value Reference Range Interpretation Comments Urine Methamphetamines Screen (test code = Urine Metha mphetamines Screen) NEGATIVE NEGATIVE [facility] HospitalUrine benzodiazepines detection by screening qdzpoz6233-40-95 05:20:00* Test Item Value Reference Range Interpretation Comments Urine Benzodiazepines Screen (test code = 63660-6) NEGATIVE NEG ATIVE [facility] HospitalUrine cocaine measurement (mass/volume) 2020-01-17 05:20:00* Test Item Value Reference Range Interpretation Comments Urine Cocaine Screen (test code = 3398-5) NEGATIVE NEGATIVE [facility] HospitalUrine cannabinoids detection by screening kspuih0073-10-33 05:20:00* Test Item Value Reference Range Interpretation Comments Urine Cannabinoids Screen (test code = 70097-1) NEGATIVE NEGATI VE THESE RESULTS ARE FOR MEDICAL TREATMENT ONLYTHIS REPORT CONTAINS UNCONFIR MED SCREENING RESULTS*POSITIVE RESULTS WILL BE CONFIRMED BY REFERENCE LAB UPON R EQUEST CUT-OFFDRUG CLASS CONCENTRATION ng/mLAmphetamines 1000Methamphetamines 1000Cocaine 300Opiate 300Phencyc lidine 25Cannabinoid 50Barbiturates 300Benzodiazepine 300Methadone 300[facility] HospitalUrine methadone bkfolf3799-19-09 05:20:00* Test Item Value Reference Range Interpretation Comments Urine Methadone Screen (test code = 59713-9) NEGATIVE NEGATIVE THESE RESULTS ARE FOR MEDICAL TREATMENT ONLYTHIS REPORT CONTAINS UNCONFIR MED SCREENING RESULTS*POSITIVE RESULTS WILL BE CONFIRMED BY REFERENCE LAB UPON R EQUEST CUT-OFFDRUG CLASS CONCENTRATION ng/mLAmphetamines 1000Methamphetamines 1000Cocaine Metabolite 300Opiate 300Phencyc lidine 25Cannabinoid 50Barbiturates 300Benzodiazepine 300Methadone 300[facility] HospitalFluoroscopic procedure less than one hour duration 2020-01-16 15:30:00* Test Item Value Reference Range Interpretation Comments Coronavirus (PCR) (test code = Coronavirus (PCR)) NOT DETECTED NOTD ETECTED [employer] SARS-CoV-2 assay is a nucleic amplification test intended for the qualitative detection of RNA from SARS-CoV-2 from nasopharyngeal ([employer]) specimens. It is used under Emergency Use Authorization (EUA) by FDA.A positive result is indicative of the presence of SARS-CoV-2 RNA. Clinical correlation with patient history and other diagnostic information is necessary to determine patient infe ction status.A negative (Not Detected) result does not preclude SARS-CoV-2 infec tion. Clinical Correlation with patient history and other diagnostic information should be used in patient management decisions.Invalid: Unable to generate a va lid result on this specimen. Please submit a new specimen for reprat testing oc clinically indicated.Tesing performed by:[facility] Laboratory [address] [place] [address] [id number], Albaro Taylor MD, PhD [facility] HospitalCHES XRAY LINE ARDGBMLCQ9593-03-32 15:23:00 [facility] [address] [address] Patient Name: ANDREA HOOVER MR #: [id number] : 1960 Age/Sex: 59/F Req #: [id number] Adm Physician: KAYA VAN MD Ordered by: KATARZYNA MOSQUERA DO Report #: [id number] [facility] Room/Bed: [place] [address] Procedure: [id number] DX/CHEST XRAY LINE PLACEMENT Exam Date: 01/16/20 Exam Time: 1 510 REPORT STATUS: Signed EXAMIN ATION: CHEST XRAY LINE PLACEMENT INDICATION: RIGHT IJ CVC PLACEMENT COMPARISON: Multiple prior x-rays including most recent earlier today. FINDINGS: TUBES and LINES: There has been interval placement of a right internal jugular central venous catheter which terminates in the distal SVC. LUNGS: The lungs are well inflated. There is persistent hazy opacifi cation the bilateral lung bases. No focal consolidations. PLEURA: No pl eural effusion or pneumothorax. HEART AND MEDIASTINUM: The cardiomediastin al silhouette is mildly enlarged. BONES AND SOFT TISSUES: No acute osseou s lesion. Soft tissues are unremarkable. UPPER ABDOMEN: No free air unde r the diaphragm. IMPRESSION: 1. Interval placement of a right inter nal jugular central venous catheter which terminates in the distal SVC. 2. Persistent haziness of the bilateral lung bases which may represent atelectasi s and/or developing multifocal pneumonia in the proper clinical context. Signed by: Aquilino Lentz MD on 01/16/2020 3:27 PM Dictated By: AQUILINO LENTZ MD 26 Transc ribed By: RUCHI on 01/16/201526 COPY TO: KATARZYNA MOSQUERA DO Arterial blood pH owcbfrmxxub3773-99-85 15:00:00* Test Item Value Reference Range Interpretation Comments Arterial Blood pH (test code = 2744-1) 7.45 7.35-7.45 [facility] HospitalpCO2 UzuM7958-13-22 15:00:00* Test Item Value Reference Range Interpretation Comments Arterial Blood Partial Pressure CO2 (test code = 2018-8) 33 35-45 [facility] HospitalpCO2 VqoL7609-96-62 15:00:00* Test Item Value Reference Range Interpretation Comments Arterial Blood Partial Pressure O2 (test code = 2018-8) 61 80-105 [facility] HospitalArterial blood bicarbonate measurement (moles/volume)2020-01-16 15:00:00* Test Item Value Reference Range Interpretation Comments Arterial Blood HCO3 (test code = 1960-4) 23 22-26 [facility] HospitalArterial cord blood carbon dioxide, total measurement by calculation (moles/volume)2020-01-16 15:00:00* Test Item Value Reference Range Interpretation Comments Arterial Blood Total CO2 (test code = 79134-0) 24 [facility] HospitalArterial blood base excess by calculation 2020-01-16 15:00:00* Test Item Value Reference Range Interpretation Comments Arterial Blood Base Excess (test code = 1925-7) -1.0 -2-3 [facility] HospitalArterial blood oxygen saturation xrrytibxeax2945-81-13 15:00:00* Test Item Value Reference Range Interpretation Comments Arterial Blood Oxygen Saturation (test code = 2708-6) 93.0 95-98 [facility] HospitalFluoroscopic procedure less than one hour bpdnilol8576-32-61 15:00:00* Test Item Value Reference Range Interpretation Comments FiO2 (test code = FiO2) 21 PT ON ROOM AIRCHI [facility] HospitalCHEST SINGLE (PORTABLE) 2020-01-16 14:55:00 [facility] [address] [place] [address] Patient Name: ANDREA HOOVER MR #: [id number] : 1960 Age/Sex: 59/F Req #: [id number] Adm Physician: KAYA VAN MD Ordered by: KATARZYNA MOSQUERA DO Report #: [id number] [facility] Room/Bed: [place] [address] Procedure: [id number] DX/CHEST SINGLE (PORTABLE) Exam Date: 01/16/20 Exam Time: 140 0 REPORT STATUS: Signed EXAMINAT ION: CHEST SINGLE (PORTABLE) INDICATION: Fever and shortness of breath COMPARISON: Multiple prior Chest x-ray including most recent on 08/06/2019. FINDINGS: TUBES and LINES: Right central venous access. LUNGS: Low lung volumes. There is hazy opacification the bilateral lung ba ses. No consolidations. PLEURA: No pleural effusion or pneumothorax. HEART AND MEDIASTINUM: The cardiomediastinal silhouette is mildly enlarged, however this may be due to accentuation from patient rotation and low lung vol umes. BONES AND SOFT TISSUES: No acute osseous lesion. Soft tissues a re unremarkable. UPPER ABDOMEN: No free air under the diaphragm. IMPRESSION: Hazy opacification the bilateral lung bases which may represe nt atelectasis and/or developing multifocal pneumonia in the proper clinical c ontext Signed by: Aquilino Lentz MD on 01/16/2020 2:59 PM Dictated By: AQUILINO LENTZ MD 58 Transcribed By: RUCHI on 01/16/201458 COPY TO: KATARZYNA MOSQUERA DO FOOT RIGHT XXCZPILM1692-53-52 14:50:00 [address] [address] Patient Name: ANDREA HOOVER MR #: [id number] : 1960 Age/Sex: 59/F Req #: [id number] Adm Physician: KAYA VAN MD Ordered by: KATARZYNA MOSQUERA DO Report #: [id number] [facility] Room/Bed: [place] [address] Procedure: [id number] DX/FOOT R IGHT COMPLETE Exam Date: 01/16/20 Exam Time: 1400 REPORT STATUS: Signed X-ray site a nd # of views HISTORY: Foot ulcer concerning for osteomyelitis. COMPARISO N: None available. FINDINGS: Status post amputation of the fourth me tatarsal. There is lateral subluxation at the second and third metatarsophalan geal joints and degenerative changes of multiple interphalangeal joints. There is a scalloped appearance with periosteal reaction of the distal phalanx of t he great toe. There is diffuse soft tissue swelling and area of lucency in the plantar forefoot seen on the lateral view. IMPRESSION: 1. Scal loped appearance with periosteal reaction of the distal phalanx of the great t oe. This may be related to chronic changes of osteomyelitis or trauma. If this is the area of concern, an MRI of the foot can be considered for more definit glenis diagnosis. 2. Diffuse soft tissue edema and an area of lucency in the alex ntar forefoot which may represent subcutaneous emphysema or fluid collection. Signed by: Aquilino Lentz MD on 01/16/2020 2:55 PM Dictated By: AQUILINO LENTZ MD 3024 Trans cribed By: RUCHI on 01/16/20 4823 COPY TO: KATARZYNA MOSQUERA DO Serum or plasma lipase measurement (enzymatic activity/volume)2020-01-16 12:38:00* Test Item Value Reference Range Interpretation Comments Lipase (test code = 3040-3) 27 8-78 [facility] or plasma creatine kinase measurement (enzymatic activity/volume)2020-01-16 12:30:00* Test Item Value Reference Range Interpretation Comments Creatine Kinase (test code = 2157-6) 311 29-168 [facility] Centererum or plasma creatine kinase MB measurement (mass/volume)2020-01-16 12:30:00* Test Item Value Reference Range Interpretation Comments Creatine Kinase MB (test code = 16604-1) 1.00 0-5.0 [facility] HospitalTroponin I measurement by highly sensitive enzyme hnjatzesndf2259-27-67 12:30:00* Test Item Value Reference Range Interpretation Comments Troponin I (test code = 18377-3) 0.021 0-0.300 [facility] HospitalBlood cmcbqbw8521-23-75 12:30:00* Test Item Value Reference Range Interpretation Comments Blood Culture (test code = 48313291) NO GROWTH AFTER 5 DAYS, FINAL REPORT [facility] HospitalBacteria identification in wound by xdqwdpe8721-35-90 12:30:00* Test Item Value Reference Range Interpretation Comments Wound Culture (test code = 6462-6) ENTEROCOCCUS FAECALIS [facility] HospitalCoronavirus (PCR)2019-08-06 17:50:00* Test Item Value Reference Range Interpretation Comments Coronavirus (PCR) (test code = Coronavirus (PCR)) NOT DETECTED NOTD ETECTED Testing was performed using the sunny (R) SARS-CoV-2 test. This test was develop ed and its performance characteristics determined by [employer]. This test has not been FDA cleared [...] is terminated or revoked sooner.Test performed at [address] [address] SINGLE (PORTABLE)2019-08-06 11:49:00 [facility] [address] [address] Patient Name: ANDREA HOOVER MR #: [id number] : 1960 Age/Sex: 59/F Req #: [id number] Adm Physician: DEIRDRE YIN MD Ordered by: NO AL MD Report #: [id number] Location: [facility] Room/Bed: [address] [address] Procedure: [id number] 6 DX/CHEST SINGLE (PORTABLE) Exam Date: 08/06/19 Jeanninediandra ian Time: 1054 REPORT STATUS: Signed EXAMINATION: CHEST SINGLE (PORTABLE) INDICATION: Pre-operative COMPARISON: Chest radiograph 08/05/2019 FINDINGS: LINES/TUBES:None LUNGS:The lungs are well-inflated. No focal consolidation [...] 115 0 COPY TO: NO AL MD, ABIM Sodium Wwnzu2391-65-28 05:50:00* Test Item Value Reference Range Interpretation Comments Sodium Level (test code = 2951-2) 138 136-145 [facility] HospitalPotassium Podsm1442-82-21 05:50:00* Test Item Value Reference Range Interpretation Comments Potassium Level (test code = 2823-3) 3.6 3.5-5.1 [facility] HospitalChloride Gxddp2208-66-81 05:50:00* Test Item Value Reference Range Interpretation Comments Chloride Level (test code = 2075-0) 99 98-107 [facility] HospitalCarbon Dioxide Dvrud6670-34-20 05:50:00* Test Item Value Reference Range Interpretation Comments Carbon Dioxide Level (test code = 2028-9) 29 22-29 [facility] HospitalAnion Xwb0232-34-22 05:50:00* Test Item Value Reference Range Interpretation Comments Anion Gap (test code = 21207-7) 13.6 8-16 [facility] HospitalBlood Urea Jokgrxsz1414-67-86 05:50:00* Test Item Value Reference Range Interpretation Comments Blood Urea Nitrogen (test code = 3094-0) 29 7-26 H [facility] HospitalCreatinine2020-03-20 05:50:00* Test Item Value Reference Range Interpretation Comments Creatinine (test code = 2160-0) 1.51 0.57-1.11 H [facility] HospitalBUN/Creatinine Mijer1577-98-01 05:50:00* Test Item Value Reference Range Interpretation Comments BUN/Creatinine Ratio (test code = 3097-3) 19 6-25 [facility] HospitalEstimat Glomerular Filtration Rate 2019-08-06 05:50:00* Test Item Value Reference Range Interpretation Comments Estimat Glomerular Filtration Rate (test code = 730115056) 43 >60 L Ranges were taken from the National Kidney Disease Education Program and the [facility] literature.Reference ranges:60 or greater: Pyqmiu34-20 ( for 3 consecutive months): Chronic kidney disease 15 or less: Kidney failureResolute Health HospitalGlucose Snrjv3747-36-08 05:50:00* Test Item Value Reference Range Interpretation Comments Glucose Level (test code = WEN9944) 210 74-118 H [facility] HospitalCalcium Bxzmv0030-44-46 05:50:00* Test Item Value Reference Range Interpretation Comments Calcium Level (test code = 79121-8) 8.6 8.4-10.2 [facility] HospitalWhite Blood Sfpue3132-64-39 05:29:00* Test Item Value Reference Range Interpretation Comments White Blood Count (test code = 6690-2) 10.57 4.8-10.8 [facility] HospitalRed Blood Wmsns4810-95-75 05:29:00* Test Item Value Reference Range Interpretation Comments Red Blood Count (test code = 789-8) 3.97 3.6-5.1 [facility] HospitalHemoglobin2020-03-20 05:29:00* Test Item Value Reference Range Interpretation Comments Hemoglobin (test code = 31424-8) 10.8 12.0-16.0 L [facility] HospitalHematocrit2020-03-20 05:29:00* Test Item Value Reference Range Interpretation Comments Hematocrit (test code = 4544-3) 33.1 34.2-44.1 L [facility] HospitalMean Corpuscular Rzjztv6381-72-02 05:29:00* Test Item Value Reference Range Interpretation Comments Mean Corpuscular Volume (test code = 787-2) 83.4 81-99 [facility] HospitalMean Corpuscular Monhsmwpou1720-72-43 05:29:00* Test Item Value Reference Range Interpretation Comments Mean Corpuscular Hemoglobin (test code = 785-6) 27.2 28-32 L [facility] HospitalMean Corpuscular Hemoglobin Concent 2019-08-06 05:29:00* Test Item Value Reference Range Interpretation Comments Mean Corpuscular Hemoglobin Concent (test code = 786-4) 32.6 31-35 [facility] HospitalRed Cell Distribution Ebmcr4281-89-57 05:29:00* Test Item Value Reference Range Interpretation Comments Red Cell Distribution Width (test code = 28963-6) 16.5 11.7 -14.4 H [facility] HospitalPlatelet Kylld7980-32-71 05:29:00* Test Item Value Reference Range Interpretation Comments Platelet Count (test code = 777-3) 486 140-360 H [facility] HospitalNeutrophils (%) (Auto)2019-08-06 05:29:00 * Test Item Value Reference Range Interpretation Comments Neutrophils (%) (Auto) (test code = 08640-7) 54.8 38.7-80.0 [facility] HospitalLymphocytes (%) (Auto)2019-08-06 05:29:00 * Test Item Value Reference Range Interpretation Comments Lymphocytes (%) (Auto) (test code = 736-9) 31.5 18.0-39.1 [facility] HospitalMonocytes (%) (Auto)2019-08-06 05:29:00* Test Item Value Reference Range Interpretation Comments Monocytes (%) (Auto) (test code = 5905-5) 10.2 4.4-11.3 [facility] HospitalEosinophils (%) (Auto)2019-08-06 05:29:00 * Test Item Value Reference Range Interpretation Comments Eosinophils (%) (Auto) (test code = 713-8) 2.4 0.0-6.0 [facility] HospitalBasophils (%) (Auto)2019-08-06 05:29:00* Test Item Value Reference Range Interpretation Comments Basophils (%) (Auto) (test code = 706-2) 0.7 0.0-1.0 [facility] HospitalIM GRANULOCYTES %2019-08-06 05:29:00* Test Item Value Reference Range Interpretation Comments IM GRANULOCYTES % (test code = IM GRANULOCYTES %) 0.4 0.0- 1.0 [facility] HospitalNeutrophils # (Auto)2019-08-06 05:29:00* Test Item Value Reference Range Interpretation Comments Neutrophils # (Auto) (test code = 751-8) 5.8 2.1-6.9 [facility] HospitalLymphocytes # (Auto)2019-08-06 05:29:00* Test Item Value Reference Range Interpretation Comments Lymphocytes # (Auto) (test code = 65249-1) 3.3 1.0-3.2 H [facility] HospitalMonocytes # (Auto)2019-08-06 05:29:00* Test Item Value Reference Range Interpretation Comments Monocytes # (Auto) (test code = 742-7) 1.1 0.2-0.8 H [facility] HospitalEosinophils # (Auto)2019-08-06 05:29:00* Test Item Value Reference Range Interpretation Comments Eosinophils # (Auto) (test code = 711-2) 0.3 0.0-0.4 [facility] HospitalBasophils # (Auto)2019-08-06 05:29:00* Test Item Value Reference Range Interpretation Comments Basophils # (Auto) (test code = 704-7) 0.1 0.0-0.1 [facility] HospitalAbsolute Immature Granulocyte (auto 2019-08-06 05:29:00* Test Item Value Reference Range Interpretation Comments Absolute Immature Granulocyte (auto (gretchen t code = Absolute Immature Granulocyte (auto) 0.04 0-0.1 [facility] HospitalUrine Legionella Xpmzfvm3158-74-80 22:06:00* Test Item Value Reference Range Interpretation Comments Urine Legionella Antigen (test code = 43368-7) Negative Negativ e Presumptive negative for L. pneumophila serogroup 1 antigenin urine, suggesting no recent or current infection.Legionnaires' disease cannot be ruled out since o therserogroups and species may also cause disease.Performed at: - [facility] [address] [place], [place] [id number] Director: Nikky Calle MD, Phone: [phone] Health HospitalBlood Culture 2019-08-05 16:05:00* Test Item Value Reference Range Interpretation Comments Blood Culture (test code = 89654012) NO GROWTH AFTER 72 HOURS [facility] HospitalCHEST SINGLE (PORTABLE)2019-08-05 11:19:00 [facility] [address] [address] Patient Name: ANDREA HOOVER MR #: [id number] : 1960 Age/Sex: 59/F Req #: [id number] Adm Physician: DEIRDRE YIN MD Ordered by: NO AL MD Report #: [id number] Location: [facility] Room/Bed: [place] [address] Procedure: 0319-000 2 DX/CHEST SINGLE (PORTABLE) Exam Date: Exam Time: REPORT STATUS: Signed EXAMINATI ON: CHEST SINGLE (PORTABLE) INDICATION: Pneumonia COMPARISON: [facility] radiograph 08/03/2019 FINDINGS: LINES/TUBES:None LUNGS:The lungs are moderately inflated. Interval improvement in hazy bilateral airspace opacities. PLEURA:No pleural effusion or pneumothorax. MEDIASTINUM:The cardiomediastinal silhouette appears unchanged in size and shape. BONE S/SOFT TISSUES:No acute osseous injury. ABDOMEN:No free air under the diaph ragm. IMPRESSION: Interval improvement in bilateral right greater flaco n left hazy airspace opacities. Signed by: Juan Crawford MD on 08/05/2019 11 :21 AM Dictated By: JUAN CRAWFORD MD 112 Transcribed By: RUCHI on 08/05/19 112 COPY TO: NO MILES MD, ABI C-Reactive Hcbqafb1836-90-33 11:18:00* Test Item Value Reference Range Interpretation Comments C-Reactive Protein (test code = 1988-5) 188 0-10 H Performed at: - [facility] [id number] Director: Manjeet Pritchard MD, Phone: [phone] Health HospitalPhosphorus Gqfgs7422-77-18 09:10:00* Test Item Value Reference Range Interpretation Comments Phosphorus Level (test code = BTU9638) 4.2 2.3-4.7 [facility] HospitalMagnesium Bdklx7148-02-14 09:10:00* Test Item Value Reference Range Interpretation Comments Magnesium Level (test code = 39221-0) 1.8 1.3-2.1 [facility] HospitalBedside Kmxprcw9876-10-99 07:00:00* Test Item Value Reference Range Interpretation Comments Bedside Glucose (test code = 01322-4) 284 70-120 H Meter ID: [id number] Health HospitalUrine Legionella pneumophila 1 antigen detection by qnzwlqtbjcr7445-32-82 12:25:00* Test Item Value Reference Range Interpretation Comments Urine Legionella Antigen (test code = 21680-3) Negative Negativ e Presumptive negative for L. pneumophila serogroup 1 antigenin urine, suggesting no recent or current infection.Legionnaires' disease cannot be ruled out since o therserogroups and species may also cause disease.Performed at: - [facility]CoA[facility] [address] [place], [place] [id number] Director: Nikky Calle MD, Phone: [phone] Health HospitalCHEST SINGLE (PORTABLE)2019-08-03 09:11:00 [facility] [address] [place] [address] Patient Name: ANDREA HOOVER MR #: [id number] : 1960 Age/Sex: 59/F Req #: [id number] Adm Physician: DEIRDRE YIN MD Ordered by: NO AL MD Report #: [id number] Location: ICU Room/Bed: ICU 192 Procedure: 0317-000 4 DX/CHEST SINGLE (PORTABLE) Exam Date: 08/03/19 Alex sosa Time: 629 REPORT STATUS: Signed EXAM: CHEST SINGLE (PORTABLE) INDICATION: CHF COMPARISON: 08/02/2019 IMPRESSION: Lines and hardware: None Heart: Stable. Lungs and pleura: Stable right lung multifocal patchy airspace opacities, most prominent in the middle and lower lung zones. Retrocardiac patchy airspace opacity. Small la yering bilateral pleural effusions. No pneumothorax. Bones: No acute abnormal ity. Signed by: Bert Case MD on 08/03/2019 9:13 AM Dictated By: Jackie CASE DO 2 Transcribed By: RUCHI on 08/03/19912 COPY TO: NO AL MD, AB Erythrocyte Sedimentation Ushy7712-65-21 05:55:00* Test Item Value Reference Range Interpretation Comments Erythrocyte Sedimentation Rate (test code = 4537-7) 99 0- 20 H [facility] HospitalLactic Acid Awimi8055-63-15 05:50:00* Test Item Value Reference Range Interpretation Comments Lactic Acid Level (test code = Lactic Acid Level) 0.8 0.5- 2.0 [facility] HospitalErythrocyte sedimentation rate by Westergren skvvvf2947-49-17 04:50:00* Test Item Value Reference Range Interpretation Comments Erythrocyte Sedimentation Rate (test code = 4537-7) 99 0- 20 [facility] Centererum or plasma C reactive protein measurement (mass/volume)2019-08-03 04:50:00* Test Item Value Reference Range Interpretation Comments C-Reactive Protein (test code = 1988-5) 188 0-10 Performed at: [facility] [place], [place] [id number] Director: Manjeet Pritchard MD, Phone: [phone] Health HospitalArterial Blood gS6423-36-44 17:59:00* Test Item Value Reference Range Interpretation Comments Arterial Blood pH (test code = 2744-1) 7.40 7.31-7.41 [facility] HospitalArterial Blood Partial Pressure CO2 2019-08-02 17:59:00* Test Item Value Reference Range Interpretation Comments Arterial Blood Partial Pressure CO2 (test code = 2019-8) 34 41-51 L [facility] HospitalArterial Blood EOP80509-99-15 17:59:00* Test Item Value Reference Range Interpretation Comments Arterial Blood HCO3 (test code = 1960-4) 21 23-28 L [facility] HospitalArterial Blood Base Tasxlc0774-87-25 17:59:00* Test Item Value Reference Range Interpretation Comments Arterial Blood Base Excess (test code = 1925-7) -4.0 -2-3 L [facility] HospitalFiO22020-03-16 17:59:00* Test Item Value Reference Range Interpretation Comments FiO2 (test code = FiO2) 50 12/6. 14,50%[facility] HospitalCT CHEST X1477-75-96 17:22:00 [facility] [address] [address] Patient Name: ANDREA HOOVER MR #: [id number] : 1959 Age/Sex: 59/F Req #: [id number] Adm Physician: DEIRDRE YIN MD Ordered by: KATARZYNA MOSQUERA DO Report #: [id number] [facility] Room/Bed: [place] [address] Procedure: 0316-[address]/CT CHEST W Exam Date: 08/02/19 Exam [...] performed. IV CONTRAST: 100 cc of Isovue 370 RADIATION DOSE: Total DLP: 510 mGy*cm Dose [...] 08/02/191730 COPY TO: KATARZYNA MOSQUERA DO Total Lmrjjkcjs8604-16-21 14:56:00* Test Item Value Reference Range Interpretation Comments Total Bilirubin (test code = 1975-2) 0.6 0.2-1.2 [facility] HospitalAspartate Amino Transf (AST/SGOT) 2019-08-02 14:56:00* Test Item Value Reference Range Interpretation Comments Aspartate Amino Transf (AST/SGOT) (test code = Aspartate Amino Transf (AST/SGOT)) 15 5-34 [facility] HospitalAlanine Aminotransferase (ALT/SGPT) 2019-08-02 14:56:00* Test Item Value Reference Range Interpretation Comments Alanine Aminotransferase (ALT/SGPT) (test code = 1742-6) 25 0-55 [facility] HospitalTotal Hutxtuy0775-59-83 14:56:00* Test Item Value Reference Range Interpretation Comments Total Protein (test code = 2885-2) 7.3 6.5-8.1 [facility] HospitalAlbumin2020-03-16 14:56:00* Test Item Value Reference Range Interpretation Comments Albumin (test code = 1751-7) 3.1 3.5-5.0 L [facility] HospitalGlobulin2020-03-16 14:56:00* Test Item Value Reference Range Interpretation Comments Globulin (test code = 26436-1) 4.2 2.3-3.5 H [facility] HospitalAlbumin/Globulin Kzbin7805-83-58 14:56:00 * Test Item Value Reference Range Interpretation Comments Albumin/Globulin Ratio (test code = 1759-0) 0.7 0.8-2.0 L [facility] HospitalAlkaline Ukkkmuxvyom5502-91-71 14:56:00* Test Item Value Reference Range Interpretation Comments Alkaline Phosphatase (test code = 6768-6) 140 40-150 [facility] HospitalB-Type Natriuretic Vswlpek8891-20-71 14:56:00* Test Item Value Reference Range Interpretation Comments B-Type Natriuretic Peptide (test code = 23944-2) 272.4 0-100 H [facility] HospitalCreatine Ffjgyc1741-30-62 14:56:00* Test Item Value Reference Range Interpretation Comments Creatine Kinase (test code = 2157-6) 97 29-168 [facility] HospitalCreatine Kinase SX7507-03-76 14:56:00* Test Item Value Reference Range Interpretation Comments Creatine Kinase MB (test code = 45292-2) 1.80 0-5.0 [facility] HospitalTroponin W5026-03-07 14:56:00* Test Item Value Reference Range Interpretation Comments Troponin I (test code = XLT7068) 0.018 0-0.300 [facility] HospitalInfluenza Virus Types A,B Antigen 2019-08-02 14:38:00* Test Item Value Reference Range Interpretation Comments Influenza Virus Types A,B Antigen (test code = 66916-3) NEGATIVE NEGATIVE [facility] HospitalCHEST SINGLE (PORTABLE)2019-08-02 14:03:00 [address] [place] [address] Patient Name: ANDREA HOOVER MR #: [id number] : 1960 Age/Sex: 59/F Req #: [id number] Adm Physician: Ordered by: KATARZYNA MOSQUERA DO Report #: [id number] Location: ER Room/Bed: Procedure: 0316-003 9 DX/CHEST SINGLE (PORTABLE) Exam Date: 08/02/19 Exa m Time: 1322 REPORT STATUS: Signed EXAMINATION: CHEST SINGLE (PORTABLE) INDICATION: Shortness of breath COMPARISON: Multiple prior chest are graft, most recently 06/24/2019 FINDINGS: LINES/TUBES:None LUNGS:The lungs are moderately inflated. There is [...] 08/02/19 1406 COPY TO: KATARZYNA MOSQUERA DO Influenza virus A and B antigen identification by immunofluorescence 2019-08-02 13:45:00* Test Item Value Reference Range Interpretation Comments Influenza Virus Types A,B Antigen (test code = 80055-8) NEGATIVE NEGATIVE [facility] HospitalBedside Ispyzph0864-48-55 19:19:00* Test Item Value Reference Range Interpretation Comments Bedside Glucose (test code = 55187-9) 200 70-120 H Meter ID: [id number] N. Jones Regional Medical CenterHemoglobin2020-02-08 16:45:00* Test Item Value Reference Range Interpretation Comments Hemoglobin (test code = 37608-6) 7.9 12.0-16.0 L [facility] HospitalHematocrit2020-02-08 16:45:00* Test Item Value Reference Range Interpretation Comments Hematocrit (test code = 4544-3) 24.8 34.2-44.[address] [facility] Centerodium Falrr1001-08-47 06:19:00* Test Item Value Reference Range Interpretation Comments Sodium Level (test code = 2951-2) 136 136-145 [facility] HospitalPotassium Lypdz1902-37-45 06:19:00* Test Item Value Reference Range Interpretation Comments Potassium Level (test code = 2823-3) 4.2 3.5-5.1 [facility] HospitalChloride Ddqcv5139-31-98 06:19:00* Test Item Value Reference Range Interpretation Comments Chloride Level (test code = 2075-0) 102 98-107 [facility] HospitalCarbon Dioxide Rszgw4043-70-63 06:19:00* Test Item Value Reference Range Interpretation Comments Carbon Dioxide Level (test code = 2028-9) 24 22-29 [facility] HospitalAnion Gpx5189-12-85 06:19:00* Test Item Value Reference Range Interpretation Comments Anion Gap (test code = 23710-7) 14.2 8-16 [facility] HospitalBlood Urea Wllxzuzn2770-91-23 06:19:00* Test Item Value Reference Range Interpretation Comments Blood Urea Nitrogen (test code = 3094-0) 13 7-26 [facility] HospitalCreatinine2020-02-07 06:19:00* Test Item Value Reference Range Interpretation Comments Creatinine (test code = 2160-0) 1.37 0.57-1.11 H [facility] HospitalBUN/Creatinine Cpgxc3972-19-85 06:19:00* Test Item Value Reference Range Interpretation Comments BUN/Creatinine Ratio (test code = 3097-3) 9 6-25 [facility] HospitalEstimat Glomerular Filtration Rate 2019-06-25 06:19:00* Test Item Value Reference Range Interpretation Comments Estimat Glomerular Filtration Rate (test code = 625681999) 48 >60 L Ranges were taken from the National Kidney Disease Education Program and the [facility] literature.Reference ranges:60 or greater: Zffrng10-50 ( for 3 consecutive months): Chronic kidney disease 15 or less: Kidney failureResolute Health HospitalGlucose Ynvme7219-96-82 06:19:00* Test Item Value Reference Range Interpretation Comments Glucose Level (test code = GKS2994) 218 74-118 H [facility] HospitalCalcium Bjzto1195-76-91 06:19:00* Test Item Value Reference Range Interpretation Comments Calcium Level (test code = 57829-4) 8.1 8.4-10.2 L [facility] HospitalWhite Blood Anohp6504-64-47 05:58:00* Test Item Value Reference Range Interpretation Comments White Blood Count (test code = 6690-2) 13.65 4.8-10.8 H [facility] HospitalRed Blood Hkdzm1628-53-94 05:58:00* Test Item Value Reference Range Interpretation Comments Red Blood Count (test code = 789-8) 2.65 3.6-5.1 L [facility] HospitalMean Corpuscular Owpndw2212-19-76 05:58:00* Test Item Value Reference Range Interpretation Comments Mean Corpuscular Volume (test code = 787-2) 84.9 81-99 [facility] HospitalMean Corpuscular Jbqznwfjme3542-17-28 05:58:00* Test Item Value Reference Range Interpretation Comments Mean Corpuscular Hemoglobin (test code = 785-6) 26.4 28-32 L [facility] HospitalMean Corpuscular Hemoglobin Concent 2019-06-25 05:58:00* Test Item Value Reference Range Interpretation Comments Mean Corpuscular Hemoglobin Concent (test code = 786-4) 31.1 31-35 [facility] HospitalRed Cell Distribution Kbzog8089-18-14 05:58:00* Test Item Value Reference Range Interpretation Comments Red Cell Distribution Width (test code = 17555-9) 16.6 11.7 -14.4 H [facility] HospitalPlatelet Xvisn6946-86-20 05:58:00* Test Item Value Reference Range Interpretation Comments Platelet Count (test code = 777-3) 418 140-360 H [facility] HospitalNeutrophils (%) (Auto)2019-06-25 05:58:00 * Test Item Value Reference Range Interpretation Comments Neutrophils (%) (Auto) (test code = 30890-5) 66.4 38.7-80.0 [facility] HospitalLymphocytes (%) (Auto)2019-06-25 05:58:00 * Test Item Value Reference Range Interpretation Comments Lymphocytes (%) (Auto) (test code = 736-9) 18.3 18.0-39.1 [facility] HospitalMonocytes (%) (Auto)2019-06-25 05:58:00* Test Item Value Reference Range Interpretation Comments Monocytes (%) (Auto) (test code = 5905-5) 13.2 4.4-11.3 H [facility] HospitalEosinophils (%) (Auto)2019-06-25 05:58:00 * Test Item Value Reference Range Interpretation Comments Eosinophils (%) (Auto) (test code = 713-8) 1.4 0.0-6.0 [facility] HospitalBasophils (%) (Auto)2019-06-25 05:58:00* Test Item Value Reference Range Interpretation Comments Basophils (%) (Auto) (test code = 706-2) 0.2 0.0-1.0 [facility] HospitalIM GRANULOCYTES %2019-06-25 05:58:00* Test Item Value Reference Range Interpretation Comments IM GRANULOCYTES % (test code = IM GRANULOCYTES %) 0.5 0.0- 1.0 [facility] HospitalNeutrophils # (Auto)2019-06-25 05:58:00* Test Item Value Reference Range Interpretation Comments Neutrophils # (Auto) (test code = 751-8) 9.1 2.1-6.9 H [facility] HospitalLymphocytes # (Auto)2019-06-25 05:58:00* Test Item Value Reference Range Interpretation Comments Lymphocytes # (Auto) (test code = 34611-7) 2.5 1.0-3.2 [facility] HospitalMonocytes # (Auto)2019-06-25 05:58:00* Test Item Value Reference Range Interpretation Comments Monocytes # (Auto) (test code = 742-7) 1.8 0.2-0.8 H [facility] HospitalEosinophils # (Auto)2019-06-25 05:58:00* Test Item Value Reference Range Interpretation Comments Eosinophils # (Auto) (test code = 711-2) 0.2 0.0-0.4 [facility] HospitalBasophils # (Auto)2019-06-25 05:58:00* Test Item Value Reference Range Interpretation Comments Basophils # (Auto) (test code = 704-7) 0.0 0.0-0.1 [facility] HospitalAbsolute Immature Granulocyte (auto 2019-06-25 05:58:00* Test Item Value Reference Range Interpretation Comments Absolute Immature Granulocyte (auto (gretchen t code = Absolute Immature Granulocyte (auto) 0.07 0-0.1 [facility] HospitalCHEST SINGLE (PORTABLE)2019-06-24 16:57:00 [facility] [address] [place] [address] Patient Name: ANDREA HOOVER MR #: [id number] : 1960 Age/Sex: 59/F Req #: [id number] Adm Physician: AMINAH ROBBINS MD Ordered by: CLIFF SINGLETON [employer] SUPERVISOR Report #: [id number] Location: [facility] Room/Bed: [facility] Procedure: [id number] DX/CHEST SINGLE (PORTABLE) Exam Date: 06/24/19 Exam [...] on 06/24/2019 4:59 PM Dictated By: JUAN CRAWFORD MD 58 Transcribed By: RUCHI on 06/24/191658 COPY TO: CLIFF SINGLETON NP Differential Total Cells Bcemxor2107-42-50 08:00:00* Test Item Value Reference Range Interpretation Comments Differential Total Cells Counted (test code = Marcel valeral Total Cells Counted) 100 [facility] HospitalNeutrophils % (Manual)2019-06-23 08:00:00 * Test Item Value Reference Range Interpretation Comments Neutrophils % (Manual) (test code = 78673-6) 68 40-74 [facility] HospitalLymphocytes % (Manual)2019-06-23 08:00:00 * Test Item Value Reference Range Interpretation Comments Lymphocytes % (Manual) (test code = 737-7) 17 19-48 L [facility] HospitalMonocytes % (Manual)2019-06-23 08:00:00* Test Item Value Reference Range Interpretation Comments Monocytes % (Manual) (test code = 744-3) 13 3.4-9.0 H [facility] HospitalEosinophils % (Manual)2019-06-23 08:00:00 * Test Item Value Reference Range Interpretation Comments Eosinophils % (Manual) (test code = 714-6) 2 0-7 [facility] HospitalPlatelet Bjuugkru0120-17-23 08:00:00* Test Item Value Reference Range Interpretation Comments Platelet Estimate (test code = 69151-4) ADEQUATE [facility] HospitalPlatelet Morphology Snpaqqj8523-08-80 08:00:00* Test Item Value Reference Range Interpretation Comments Platelet Morphology Comment (test code = 11593-7) NORMAL [facility] HospitalRed Cell Morphology Tcxogml9417-54-18 08:00:00* Test Item Value Reference Range Interpretation Comments Red Cell Morphology Comment (test code = 6742-1) NORMAL [facility] HospitalDifferential Total Cells Counted 2019-06-23 08:00:00* Test Item Value Reference Range Interpretation Comments Differential Total Cells Counted (test code = Differen tial Total Cells Counted) 100 [facility] HospitalNeutrophils % (Manual)2019-06-23 08:00:00 * Test Item Value Reference Range Interpretation Comments Neutrophils % (Manual) (test code = 38853-6) 68 40-74 [facility] HospitalLymphocytes % (Manual)2019-06-23 08:00:00 * Test Item Value Reference Range Interpretation Comments Lymphocytes % (Manual) (test code = 737-7) 17 19-48 L [facility] HospitalMonocytes % (Manual)2019-06-23 08:00:00* Test Item Value Reference Range Interpretation Comments Monocytes % (Manual) (test code = 744-3) 13 3.4-9.0 H [facility] HospitalEosinophils % (Manual)2019-06-23 08:00:00 * Test Item Value Reference Range Interpretation Comments Eosinophils % (Manual) (test code = 714-6) 2 0-7 [facility] HospitalPlatelet Yceakzqp6153-37-30 08:00:00* Test Item Value Reference Range Interpretation Comments Platelet Estimate (test code = 74402-3) ADEQUATE [facility] HospitalPlatelet Morphology Iffsykg8885-04-87 08:00:00* Test Item Value Reference Range Interpretation Comments Platelet Morphology Comment (test code = 44825-5) NORMAL [facility] HospitalRed Cell Morphology Mxotdwn9003-28-57 08:00:00* Test Item Value Reference Range Interpretation Comments Red Cell Morphology Comment (test code = 6742-1) NORMAL [facility] HospitalTotal Xvtxnbzgf7339-27-47 06:01:00* Test Item Value Reference Range Interpretation Comments Total Bilirubin (test code = 1975-2) 0.2 0.2-1.2 [facility] HospitalAspartate Amino Transf (AST/SGOT) 2019-06-23 06:01:00* Test Item Value Reference Range Interpretation Comments Aspartate Amino Transf (AST/SGOT) (test code = Aspartate Amino Transf (AST/SGOT)) 14 5-34 [facility] HospitalAlanine Aminotransferase (ALT/SGPT) 2019-06-23 06:01:00* Test Item Value Reference Range Interpretation Comments Alanine Aminotransferase (ALT/SGPT) (test code = 1742-6) 15 0-55 [facility] HospitalTotal Nvqgweu4743-34-02 06:01:00* Test Item Value Reference Range Interpretation Comments Total Protein (test code = 2885-2) 6.0 6.5-8.1 L [facility] HospitalAlbumin2020-02-05 06:01:00* Test Item Value Reference Range Interpretation Comments Albumin (test code = 1751-7) 2.2 3.5-5.0 L [facility] HospitalGlobulin2020-02-05 06:01:00* Test Item Value Reference Range Interpretation Comments Globulin (test code = 35530-1) 3.8 2.3-3.5 H [facility] HospitalAlbumin/Globulin Dkktt9090-67-73 06:01:00 * Test Item Value Reference Range Interpretation Comments Albumin/Globulin Ratio (test code = 1759-0) 0.6 0.8-2.0 L [facility] HospitalAlkaline Uqwnlejmwub9118-46-27 06:01:00* Test Item Value Reference Range Interpretation Comments Alkaline Phosphatase (test code = 6768-6) 120 40-150 [facility] HospitalFluoroscopic procedure less than one hour jcqzuymq5463-38-06 04:30:00* Test Item Value Reference Range Interpretation Comments Differential Total Cells Counted (test code = Marcel tial Total Cells Counted) 100 [facility] HospitalManual blood neutrophils/100 leukocytes 2019-06-23 04:30:00* Test Item Value Reference Range Interpretation Comments Neutrophils % (Manual) (test code = 81038-5) 68 40-74 [facility] blood lymphocytes/100 leukocytes 2019-06-23 04:30:00* Test Item Value Reference Range Interpretation Comments Lymphocytes % (Manual) (test code = 737-7) 17 19-48 [facility] HospitalManual blood monocytes/100 leukocytes 2019-06-23 04:30:00* Test Item Value Reference Range Interpretation Comments Monocytes % (Manual) (test code = 744-3) 13 3.4-9.0 [facility] blood eosinophil count as percentage of total xjmuvwxeat7652-05-89 04:30:00* Test Item Value Reference Range Interpretation Comments Eosinophils % (Manual) (test code = 714-6) 2 0-7 [facility] HospitalBlood platelets count by estimate (number/volume)2019-06-23 04:30:00* Test Item Value Reference Range Interpretation Comments Platelet Estimate (test code = 40237-1) ADEQUATE [facility] HospitalPlatelet ortrjctlvy9425-77-79 04:30:00* Test Item Value Reference Range Interpretation Comments Platelet Morphology Comment (test code = 00631-5) NORMAL [facility] HospitalRB ljgyogbmoa6782-07-92 04:30:00* Test Item Value Reference Range Interpretation Comments Red Cell Morphology Comment (test code = 6742-1) NORMAL [facility] HospitalCHES SINGLE (PORTABLE)2019-06-21 13:16:00 [place] [address] Patient Name: ANDREA HOOVER MR #: [id number] : 1960 Age/Sex: 59/F Req #: [id number] Adm Physician: AMINAH ROBBINS MD Ordered by: CLIFF SINGLETON [employer] SUPERVISOR Report #: [id number] [facility] Room/Bed: [facility] Procedure: [id number] DX/CHEST SINGLE (PORTABLE) Exam Date: 06/21/19 Exam [...] on 06/21/19 1329 Transcribed By: RUCHI on 1329 COPY TO: CLIFF SINGLETON NP B-Type Natriuretic Peptide 2019-06-19 07:01:00* Test Item Value Reference Range Interpretation Comments B-Type Natriuretic Peptide (test code = 44449-0) 147.2 0-100 H [facility] HospitalGASTRIC SYGQMXGR1340-51-28 19:26:00 [place] [address] Patient Name: ANDREA HOOVER MR #: [id number] : 1960 Age/Sex: 59/F Req #: [id number] Adm Physician: AMINAH ROBBINS MD Ordered by: OZIEL MCCANN MD Report #: [id number] Location: MED/SURG2 Room/Bed: [facility] Procedure: [id number] NM/GASTRIC EMPTYING Exam Date: 06/17/19 Exam Time: 1440 REPORT STATUS: Signed Solid -phase gastric emptying study Reason for examination: Abdominal pain T he protocol used for this study is based on the Consensus Recommendations for Gastric Scintigraphy by the [place] [employer] and the Society [...] mCi Report: The radiopharmaceutical was added to [place] 8 ounces. The patient was able to [...] (normal 30-90%) 2 hours was 52% (normal < 60%) 3 hours was 42% (normal <30%) 4 hours was 13% (normal <10%) Impression: Mildly prolonged gastric emptying pattern. Findings are compatible with mild gastroparesis. Signed by: Dr. Mima Pinedo M.D. on 06/17/2019 7:30 PM Dictated By: MIMA PINEDO MD 29 Transcribed By: RUCHI on 06/17/191929 COPY TO: OZIEL MCCANN MD Wound Zligudy5067-83-94 12:10:00 * Test Item Value Reference Range Interpretation Comments Wound Culture (test code = 6462-6) No Result Data Provided [facility] HospitalWound Dtqwvff4226-33-02 12:10:00* Test Item Value Reference Range Interpretation Comments Wound Culture (test code = 6462-6) No Result Data Provided [facility] HospitalUrine Random Total Mrtmnhk6784-76-17 11:38:00* Test Item Value Reference Range Interpretation Comments Urine Random Total Protein (test code = 2888-6) 152.4 1-14 H [facility] HospitalUrine Qkivsibvgg1569-68-41 11:38:00* Test Item Value Reference Range Interpretation Comments Urine Creatinine (test code = 2161-8) 26.66 47-110 L [facility] HospitalUrine Protein/Creatinine Yetkt9878-55-13 11:38:00* Test Item Value Reference Range Interpretation Comments Urine Protein/Creatinine Ratio (test code = 50137-9) 5.00 [facility] HospitalUrine Random Total Pmawsyq7389-05-28 11:38:00* Test Item Value Reference Range Interpretation Comments Urine Random Total Protein (test code = 2888-6) 152.4 1-14 H [facility] HospitalUrine Zolprfzkxc7802-86-68 11:38:00* Test Item Value Reference Range Interpretation Comments Urine Creatinine (test code = 2161-8) 26.66 47-110 L [facility] HospitalUrine Protein/Creatinine Cbewe1366-76-57 11:38:00* Test Item Value Reference Range Interpretation Comments Urine Protein/Creatinine Ratio (test code = 29969-3) 5.00 [facility] HospitalC-Reactive Pjkqiuu3380-23-19 22:26:00* Test Item Value Reference Range Interpretation Comments C-Reactive Protein (test code = 1988-5) 305 0-10 H Performed at: - [address] [id number] Director: Manjeet Pritchard MD, Phone: [phone] Health HospitalMyelocytes %2019-06-15 18:51:00* Test Item Value Reference Range Interpretation Comments Myelocytes % (test code = 749-2) 2 0-0 H [facility] HospitalReactive Gebdzhqtwcv9297-16-98 18:51:00* Test Item Value Reference Range Interpretation Comments Reactive Lymphocytes (test code = 74437-6) 5 [facility] HospitalHypochromasia2020-01-28 18:51:00* Test Item Value Reference Range Interpretation Comments Hypochromasia (test code = 728-6) MODERATE [facility] HospitalMyelocytes %2019-06-15 18:51:00* Test Item Value Reference Range Interpretation Comments Myelocytes % (test code = 749-2) 2 0-0 H [facility] HospitalReactive Nmhnqflxkcg4913-93-89 18:51:00* Test Item Value Reference Range Interpretation Comments Reactive Lymphocytes (test code = 46927-7) 5 [facility] HospitalHypochromasia2020-01-28 18:51:00* Test Item Value Reference Range Interpretation Comments Hypochromasia (test code = 728-6) MODERATE [facility] HospitalUS RENAL RETROPERITONEAL CNTL0381-20-48 17:46:00 [facility] [address] [place] [address] Patient Name: ANDREA HOOVER MR #: [id number] : 1960 Age/Sex: 59/F Req #: [id number] [facility] Physician: AMINAH ROBBINS MD Ordered by: NEVIN IGNACIO, SANDRA IGNACIO Report #: [id number] Location: [facility] Room/Bed: [facility] Procedure: [id number] US/US RENAL RETROPERITONEAL COMP Exam Date: 06/15/19 Exam Time: 1705 REPORT STATUS: Si gned EXAM: Renal Ultrasound INDICATION: MEGHANN [id number] COMPARISON: None TECHNIQUE: Transverse and longitudinal images [...] Interpretation Comments Direct Bilirubin (test code = 78536-5) 0.2 0.0-0.5 [facility] HospitalAmylase Hmdjl9754-42-97 16:23:00* Test Item Value Reference Range Interpretation Comments Amylase Level (test code = 1798-8) 36 25-125 [facility] HospitalLipase2020-01-28 16:23:00* Test Item Value Reference Range Interpretation Comments Lipase (test code = 3040-3) [facility] HospitalDirect Kfdxlessp4199-82-07 16:23:00* Test Item Value Reference Range Interpretation Comments Direct Bilirubin (test code = 42145-0) 0.2 0.0-0.5 [facility] HospitalAmylase Rdlnz3710-47-81 16:23:00* Test Item Value Reference Range Interpretation Comments Amylase Level (test code = 1798-8) 36 25-125 [facility] HospitalLipase2020-01-28 16:23:00* Test Item Value Reference Range Interpretation Comments Lipase (test code = 3040-3) [facility] HospitalManual blood myelocytes/100 leukocytes 2019-06-15 14:15:00* Test Item Value Reference Range Interpretation Comments Myelocytes % (test code = 749-2) 2 0-0 [facility] HospitalBlood lymphocytes variant count (number/volume)2019-06-15 14:15:00* Test Item Value Reference Range Interpretation Comments Reactive Lymphocytes (test code = 97663-2) 5 [facility] HospitalBlood hypochromia detection by light ueqlpnzmtf6723-60-79 14:15:00* Test Item Value Reference Range Interpretation Comments Hypochromasia (test code = 728-6) MODERATE [facility] Cent[facility] or plasma conjugated bilirubin measurement (mass/volume)2019-06-15 14:15:00* Test Item Value Reference Range Interpretation Comments Direct Bilirubin (test code = 72951-9) 0.2 0.0-0.5 [facility] Centererum or plasma amylase measurement (enzymatic activity/volume)2019-06-15 14:15:00* Test Item Value Reference Range Interpretation Comments Amylase Level (test code = 1798-8) 36 25-125 [facility] HospitalCHEST XRAY LINE SEMMTKUQE3007-49-02 11:18:00 [facility] [address] [place] [address] Patient Name: ANDREA HOOVER MR #: [id number] : 1960 Age/Sex: 59/F Req #: [id number] Adm Physician: AMINAH ROBBINS MD Ordered by: YOEL HUGGINS MD Report #: [id number] Location: MED/[facility] Room/Bed: [facility] Procedure: [id number] D X/CHEST XRAY LINE PLACEMENT Exam Date: [...] 11:19 AM Dictated By: JUAN CRAWFORD MD [facility] Signed By: JUAN CRAWFORD MD on 06/14/19 1119 Transcribed By: RUCHI on 05/20 12/05 1119 COPY TO: YOEL HUGGINS MD MRI FOOT RIGHT [id number] 19:18:00 [place] [address] Patient Name: ANDREA HOOVER MR #: [id number] : 1960 Age/Sex: 59/F Req #: [id number] Adm Physician: AMINAH ROBBINS MD Ordered by: ALEXIS HUITRON Report #: [id number] Location: MED/SUR[facility]2 Room/Bed: [facility] Procedure: MRI/MRI FOOT RIGHT WO Exam Date: Exam [...] sequence in the following sites:. * Base of third toe proximal phalanx * First toe distal phalanx. * Third metatarsal base (series 4 image 9) * Intermediate [...] 2.6 centimeter abscess in the lateral pat maricruz midfoot mid/forefoot soft tissues above the fourth [...] on 06/13/191944 COPY TO: ALEXIS HUITRON Blood Npyhzub3760-70-01 19:03:00* Test Item Value Reference Range Interpretation Comments Blood Culture (test code = 95792319) NO GROWTH AFTER 5 DAYS, FINAL REPORT [facility] HospitalCHEST SINGLE (PORTABLE)2019-06-13 15:41:00 [facility] [address] [place] [address] Patient Name: ANDREA HOOVER MR #: [id number] : 1960 Age/Sex: 59/F Req #: [id number] Adm Physician: AMINAH ROBBINS MD Ordered by: CLIFF SINGLETON [employer] SUPERVISOR Report #: [id number] Location: MED/SUR[facility]2 Room/Bed: [facility] Procedure: [id number] DX/CHEST SINGLE (PORTABLE) Exam Date: 06/13/19 Exam Time: 1430 REPORT STATUS: Signed EXAMINATION: CHEST SINGLE (PORTABLE) INDICATION: Pulmonary edema. COMPARISON: Chest radiograph 06/12/2019. FINDINGS: TUBES and LINES: None. LUNGS: Improving bilateral interstitial and airspace [...] Signed By: JORGE LUIS MCGHEE MD on 06/13/19 1543 Transcribed By: RUCHI on 1541 COPY TO: CLIFF SINGLETON [employer] SUPERVISOR FOOT RIGHT QGOHEJFY3844-01-76 10:25:00 [place] [id number] [place] [address] Patient Name: ANDREA HOOVER MR #: [id number] : 1960 Age/Sex: 59/F Req #: [id number] Adm Physician: AMINAH ROBBINS MD Ordered by: REHANA FERNANDEZ DPM Report #: [id number] Location: MED/SUR[facility]2 Room/Bed: [facility] Procedure: [id number] DX/ FOOT RIGHT COMPLETE Exam Date: 06/13/19 [...] AM Dictated By: JORGE LUIS Wilson MD 103 Transcribed By: RUCHI on 06/13/19 1031 COPY TO: REHANA FERNANDEZ DPM Erythrocyte Sedimentation Ukwk1312-98-05 09:50:00* Test Item Value Reference Range Interpretation Comments Erythrocyte Sedimentation Rate (test code = 4537-7) 117 0- 20 H [facility] HospitalHIV (1&2) Vfylhjvx6728-63-54 09:50:00* Test Item Value Reference Range Interpretation Comments HIV (1&2) Antibody (test code = 54692-9) NON-REACTIVE NONREACTIVE [facility] P24 Yvqaxcm0885-15-20 09:50:00* Test Item Value Reference Range Interpretation Comments HIV P24 Antigen (test code = HIV P24 Antigen) NON-REACTIVE NONREACT GLENIS [facility] HospitalHI (1&2) Zpcylokg3331-04-54 09:50:00* Test Item Value Reference Range Interpretation Comments HIV (1&2) Antibody (test code = 37554-4) NON-REACTIVE NONREACTIVE [facility] P24 Avbltpd4018-49-94 09:50:00* Test Item Value Reference Range Interpretation Comments HIV P24 Antigen (test code = HIV P24 Antigen) NON-REACTIVE NONREACT GLENIS [facility] HospitalCHEST SINGLE (PORTABLE)2019-06-12 08:31:00 [place] [address] Patient Name: ANDREA HOOVER MR #: [id number] : 1960 Age/Sex: 59/F Req #: [id number] Adm Physician: AMINAH ROBBNIS MD Ordered by: AMINAH ROBBINS MD Report #: [id number] Location: [facility] [facility] Procedure: [id number] DX/CHEST SINGLE (PORTABLE) Exam Date: 06/12/19 Exam [...] AM Dictated By: EMMA CINTRON MD, MD [facility] Signed By: EMMA CINTRON MD, MD on 06/12/19832 Transcribed By: RUCHI on 06/12/19832 COPY TO: AMINAH ROBBINS MD HIV 1 and 2 antibody detection qualitative by rapid avgypigafzb0328-89-74 07:50:00* Test Item Value Reference Range Interpretation Comments HIV (1&2) Antibody (test code = 64970-9) NON-REACTIVE NONREACTIVE [facility] HospitalFluoroscopic procedure less than one hour cburxprv3244-62-46 07:50:00* Test Item Value Reference Range Interpretation Comments HIV P24 Antigen (test code = HIV P24 Antigen) NON-REACTIVE NONREACT GLENIS [facility] HospitalCT ABDOMEN/PELVIS WK4912-03-51 16:09:00 [place] [address] Patient Name: ANDREA HOOVER MR #: [id number] : 1960 Age/Sex: 59/F Req #: [id number] Adm Physician: AMINAH ROBBINS MD Ordered by: ALEXIS HUITRON Report #: [id number] Location: MED/SURG2 Room/Bed: 212- Procedure: 0124-[address]/CT ABDOMEN/PELVIS WO Exam Date: 06/11/19 Exam Time: 1508 REPORT STATUS: Signed CT of the abdomen and pelvis, without contrast, 06/11/2019. History: Fever, nausea, abdominal pain. Comparison: Ultrasound 06/09/2019. CT abdomen 03/27/2019. Technique: Multidetector CT scanning [...] on 06/11/191622 COPY TO: ALEXIS HUITRON Iron Bdgqy0035-13-95 10:57:00* Test Item Value Reference Range Interpretation Comments Iron Level (test code = 2498-4) 11 50-170 L [facility] HospitalTotal Iron Binding Psynvaxd7981-41-15 10:57:00* Test Item Value Reference Range Interpretation Comments Total Iron Binding Capacity (test code = 2500-7) 185 261-4 78 L [facility] HospitalPercent Iron Yldgyavbyr5621-61-92 10:57:00* Test Item Value Reference Range Interpretation Comments Percent Iron Saturation (test code = 2502-3) 6 15-50 L [facility] HospitalTransferrin2020-01-24 10:57:00* Test Item Value Reference Range Interpretation Comments Transferrin (test code = 3034-6) 132 180-382 L [facility] HospitalIron Rezsi7287-50-54 10:57:00* Test Item Value Reference Range Interpretation Comments Iron Level (test code = 2498-4) 11 50-170 L [facility] HospitalTotal Iron Binding Vesqkzfk5121-71-67 10:57:00* Test Item Value Reference Range Interpretation Comments Total Iron Binding Capacity (test code = 2500-7) 185 261-4 78 L [facility] HospitalPercent Iron Oaaksbmnkc5684-69-47 10:57:00* Test Item Value Reference Range Interpretation Comments Percent Iron Saturation (test code = 2502-3) 6 15-50 L [facility] HospitalTransferrin2020-01-24 10:57:00* Test Item Value Reference Range Interpretation Comments Transferrin (test code = 3034-6) 132 180-382 L [facility] HospitalProcalcitonin2020-01-23 22:44:00* Test Item Value Reference Range Interpretation Comments Procalcitonin (test code = 538844901) 0.66 0.00-0.08 H A procalcitonin (PCT) level [...] any concentrations <2 ng/mL are obtained.Performed at: [facility] [address] [id number] Director: Manjeet Pritchard MD, Phone: [phone] Health HospitalProcalcitonin2020-01-23 22:44:00* Test Item Value Reference Range Interpretation Comments Procalcitonin (test code = 395614014) 0.66 0.00-0.08 H A procalcitonin (PCT) level [...] concentrations <2 ng/mL are obtained.Performed at: - [facility] [id number] Director: Manjeet Pritchard MD, Phone: [phone] [facility]2020-01-23 09:12:00* Test Item Value Reference Range Interpretation Comments Ammonia (test code = 48777-5) 52 [facility]2020-01-23 09:12:00* Test Item Value Reference Range Interpretation Comments Ammonia (test code = 18691-9) 52 [facility] HospitalMagnesium Tattj5814-10-89 09:00:00* Test Item Value Reference Range Interpretation Comments Magnesium Level (test code = 93270-1) 1.7 1.3-2.1 [facility] HospitalCHEST SINGLE (PORTABLE)2019-06-10 08:35:00 [place] [address] Patient Name: ANDREA HOOVER MR #: [id number] : 1960 Age/Sex: 59/F Req #: [id number] Adm Physician: AMINAH ROBBINS MD Ordered by: NO AL MD Report #: [id number] Location: MED/SURG2 Room/Bed: [facility] Procedure: 0123-000 8 DX/CHEST SINGLE (PORTABLE) Exam [...] on 06/10 COPY TO: NO AL MD, ABIIan Creatine Kinase MB 2019-06-09 20:06:00* Test Item Value Reference Range Interpretation Comments Creatine Kinase MB (test code = 94043-1) 1.00 0-5.0 [facility] HospitalTroponin F1821-17-23 20:06:00* Test Item Value Reference Range Interpretation Comments Troponin I (test code = GZY8483) 0.032 0-0.300 [facility] HospitalCreatine Cyzyhd0961-23-99 19:59:00* Test Item Value Reference Range Interpretation Comments Creatine Kinase (test code = 2157-6) 101 29-168 [facility] HospitalUS ABDOMEN ICEMUNJ3188-80-65 14:33:00 [place] [address] Patient Name: ANDREA HOOVER MR #: [id number] : 1960 Age/Sex: 59/F Req #: [id number] Adm Physician: NO AL MD, ABIM Ordered by: NO AL MD Report #: [id number] Location: MED/SURG2 Room/Bed: [facility] Procedure: [id number] US/US ABDOMEN LIMITED Exam Date: 06/09/19 Exam [...] MD, ABIM CHEST SINGLE (PORTABLE) 2019-06-09 09:04:00 [place] [address] Patient Name: ANDREA HOOVER MR #: [id number] : 1960 Age/Sex: 59/F Req #: [id number] Adm Physician: NO AL MD, ABIM Ordered by: MADI DUKE MD Report #: [id number] Location: MED/SURG2 Room/Bed: [facility] Procedure: DX/CHEST SINGLE (PORTABLE) Exam Date: 06/09/19 [...] 06/09/19905 C OPY TO: MADI DUKE MD Procalcitonin (PCT) yxqrs0835-19-71 05:15:00 * Test Item Value Reference Range Interpretation Comments Procalcitonin (test code = 876209308) 0.66 0.00-0.08 A procalcitonin (PCT) level above 2.0 ng/mL [...] concentrations <2 ng/mL are obtained.Performed at: - [facility] [id number] Director: Manjeet Pritchard MD, Phone: [phone] Health HospitalLactic Acid Ooinm4360-34-52 20:48:00* Test Item Value Reference Range Interpretation Comments Lactic Acid Level (test code = Lactic Acid Level) 0.6 0.5- 2.0 [facility] HospitalUrine YLO2026-40-69 18:25:00* Test Item Value Reference Range Interpretation Comments Urine WBC (test code = 5821-4) 6-10 0-5 H [facility] HospitalUrine GXJ6684-47-42 18:25:00* Test Item Value Reference Range Interpretation Comments Urine RBC (test code = 18010-7) 6-10 0-5 H [facility] HospitalUrine Jslthcxo9328-63-61 18:25:00* Test Item Value Reference Range Interpretation Comments Urine Bacteria (test code = 25329-7) MANY NONE H [facility] HospitalUrine Epithelial Bnqmx3745-97-08 18:25:00 * Test Item Value Reference Range Interpretation Comments Urine Epithelial Cells (test code = 34650-2) MODERATE NONE [facility] HospitalUrine Amorphous Alaayqkw0435-72-48 18:25:00* Test Item Value Reference Range Interpretation Comments Urine Amorphous Sediment (test code = 8246-1) MODERATE FEW H [facility] HospitalUrine TXX8231-74-86 18:25:00* Test Item Value Reference Range Interpretation Comments Urine WBC (test code = 5821-4) 6-10 0-5 H [facility] HospitalUrine LUZ8289-40-79 18:25:00* Test Item Value Reference Range Interpretation Comments Urine RBC (test code = 30654-0) 6-10 0-5 H [facility] Maunvwcs8819-32-90 18:25:00* Test Item Value Reference Range Interpretation Comments Urine Bacteria (test code = 60166-8) MANY NONE H [facility] HospitalUrine Epithelial Vmqmt9808-12-29 18:25:00 * Test Item Value Reference Range Interpretation Comments Urine Epithelial Cells (test code = 83470-5) MODERATE NONE [facility] HospitalUrine Amorphous Jhtjufhz0243-78-59 18:25:00* Test Item Value Reference Range Interpretation Comments Urine Amorphous Sediment (test code = 8246-1) MODERATE FEW H [facility] HospitalUrine Paukh0824-20-66 18:18:00* Test Item Value Reference Range Interpretation Comments Urine Color (test code = 5778-6) YELLOW YELLOW [facility] HospitalUrine Oejmraw6062-86-44 18:18:00* Test Item Value Reference Range Interpretation Comments Urine Clarity (test code = 89049-9) SL CLOUDY CLEAR [facility] HospitalUrine Specific Dyluvkl1415-81-27 18:18:00 * Test Item Value Reference Range Interpretation Comments Urine Specific [place] (test code = 5811-5) 1.025 1.010-1.02 5 [facility] HospitalUrine nV6191-85-08 18:18:00* Test Item Value Reference Range Interpretation Comments Urine pH (test code = 50699-1) 6 5-7 [facility] HospitalUrine Leukocyte Fqssrton7759-34-20 18:18:00* Test Item Value Reference Range Interpretation Comments Urine Leukocyte Esterase (test code = 5799-2) NEGATIVE NEGATIVE [facility] HospitalUrine Zrxyjup5412-46-03 18:18:00* Test Item Value Reference Range Interpretation Comments Urine Nitrite (test code = 96054-2) NEGATIVE NEGATIVE [facility] HospitalUrine Wtkgmsp0281-57-36 18:18:00* Test Item Value Reference Range Interpretation Comments Urine Protein (test code = 5804-0) 2+ NEGATIVE H [facility] HospitalUrine Glucose (UA)2019-06-08 18:18:00* Test Item Value Reference Range Interpretation Comments Urine Glucose (UA) (test code = 2349-9) 2+ NEGATIVE H [facility] HospitalUrine Eotvnya8907-15-44 18:18:00* Test Item Value Reference Range Interpretation Comments Urine Ketones (test code = 18244-1) NEGATIVE NEGATIVE [facility] Tzbpqgdnfwhy4720-70-58 18:18:00* Test Item Value Reference Range Interpretation Comments Urine Urobilinogen (test code = 78517-3) 0.2 0.2-1 [facility] HospitalUrine Mtirttdzc7406-84-69 18:18:00* Test Item Value Reference Range Interpretation Comments Urine Bilirubin (test code = 1978-6) NEGATIVE NEGATIVE [facility] Rejmt1854-72-01 18:18:00* Test Item Value Reference Range Interpretation Comments Urine Blood (test code = 92926-8) 2+ NEGATIVE H [facility] HospitalUrine Knznx0871-95-08 18:18:00* Test Item Value Reference Range Interpretation Comments Urine Color (test code = 5778-6) YELLOW YELLOW [facility] Mgocfdj0306-52-19 18:18:00* Test Item Value Reference Range Interpretation Comments Urine Clarity (test code = 03163-0) SL CLOUDY CLEAR [facility] HospitalUrine Specific Rypcpyi1495-17-63 18:18:00 * Test Item Value Reference Range Interpretation Comments Urine Specific [place] (test code = 5811-5) 1.025 1.010-1.02 5 [facility] HospitalUrine dM7795-19-82 18:18:00* Test Item Value Reference Range Interpretation Comments Urine pH (test code = 81901-0) 6 5-7 [facility] HospitalUrine Leukocyte Aigvlqxh7015-16-16 18:18:00* Test Item Value Reference Range Interpretation Comments Urine Leukocyte Esterase (test code = 5799-2) NEGATIVE NEGATIVE [facility] HospitalUrine Sxktppf4415-51-32 18:18:00* Test Item Value Reference Range Interpretation Comments Urine Nitrite (test code = 96578-2) NEGATIVE NEGATIVE [facility] HospitalUrine Ogwakag4357-26-86 18:18:00* Test Item Value Reference Range Interpretation Comments Urine Protein (test code = 5804-0) 2+ NEGATIVE H [facility] HospitalUrine Glucose (UA)2019-06-08 18:18:00* Test Item Value Reference Range Interpretation Comments Urine Glucose (UA) (test code = 2349-9) 2+ NEGATIVE H [facility] HospitalUrine Uectbgu7103-35-96 18:18:00* Test Item Value Reference Range Interpretation Comments Urine Ketones (test code = 47281-6) NEGATIVE NEGATIVE [facility] HospitalUrine Raboiialnfgc2925-25-44 18:18:00* Test Item Value Reference Range Interpretation Comments Urine Urobilinogen (test code = 78124-6) 0.2 0.2-1 [facility] HospitalUrine Apxquqxla1814-26-51 18:18:00* Test Item Value Reference Range Interpretation Comments Urine Bilirubin (test code = 1978-6) NEGATIVE NEGATIVE [facility] HospitalUrine Wnptz2527-83-72 18:18:00* Test Item Value Reference Range Interpretation Comments Urine Blood (test code = 47350-3) 2+ NEGATIVE H [facility] HospitalGroup A Streptococcus Qixnxn2877-65-73 17:04:00* Test Item Value Reference Range Interpretation Comments Group A Streptococcus Screen (test code = 23347-8) NEGATIVE NEG ATIVE [facility] HospitalGroup A Streptococcus Brogdl4414-56-73 17:04:00* Test Item Value Reference Range Interpretation Comments Group A Streptococcus Screen (test code = 79701-2) NEGATIVE NEG IVE [facility] HospitalProthrombin Qjkj9547-91-49 16:51:00* Test Item Value Reference Range Interpretation Comments Prothrombin Time (test code = 5902-2) 14.2 11.9-14.5 [facility] HospitalProthromb Time International Ratio 2019-06-08 16:51:00* Test Item Value Reference Range Interpretation Comments Prothromb Time International Ratio (test code = 6301-6) 1.05 Oral Anticoagulant Therapy INR Values:1. Low Intensity Therapy 1.5 - 2.02 . Moderate Intensity Therapy 2.0 - 3.03. High Intensity Therapy(1) 2.5 - 3. 54. High Intensity Therapy(2) 3.0 - 4.05. Panic Value INR > 5.0 [facility] HospitalActivated Partial Thromboplast Time 2019-06-08 16:51:00* Test Item Value Reference Range Interpretation Comments Activated Partial Thromboplast Time (test code = 36023-1) 28.9 23.8-35.5 [facility] HospitalProthrombin Igrp1864-38-48 16:51:00* Test Item Value Reference Range Interpretation Comments Prothrombin Time (test code = 5902-2) 14.2 11.9-14.5 [facility] HospitalProthromb Time International Ratio 2019-06-08 16:51:00* Test Item Value Reference Range Interpretation Comments Prothromb Time International Ratio (test code = 6301-6) 1.05 Oral Anticoagulant Therapy INR Values:1. Low Intensity Therapy 1.5 - 2.02 . Moderate Intensity Therapy 2.0 - 3.03. High Intensity Therapy(1) 2.5 - 3. 54. High Intensity Therapy(2) 3.0 - 4.05. Panic Value INR > 5.0 [facility] HospitalActivated Partial Thromboplast Time 2019-06-08 16:51:00* Test Item Value Reference Range Interpretation Comments Activated Partial Thromboplast Time (test code = 64011-5) 28.9 23.8-35.5 [facility] HospitalInfluenza Virus Types A,B Antigen 2019-06-08 16:41:00* Test Item Value Reference Range Interpretation Comments Influenza Virus Types A,B Antigen (test code = 40378-7) NEGATIVE NEGATIVE [facility] HospitalCHEST SINGLE (NOT PORTABLE)2019-06-08 16:32:00 [facility] [address] [place] [address] Patient Name: ANDREA HOOVER MR #: [id number] : 1960 Age/Sex: 59/F Req #: [id number] Adm Physician: Ordered by: MADI DUKE MD Report #: [id number] Location: ER Room/Bed: Procedure: [id number] D X/CHEST SINGLE (NOT PORTABLE) Exam Date: [...] 06/08/19 1633 COPY TO: MADI DUKE MD Activated partial thromboplastin time (aPTT) in platelet poor plasma by coagulation jtvrt8028-79-42 15:00:00* Test Item Value Reference Range Interpretation Comments Activated Partial Thromboplast Time (test code = 27795-3) 28.9 23.8-35.5 [facility] py[facility] antigen detection in byqfsx8032-14-00 15:00:00* Test Item Value Reference Range Interpretation Comments Group A Streptococcus Screen (test code = 49894-5) NEGATIVE NEG ATIVE [facility] HospitalBedside Jjevtgg6097-87-56 11:35:00* Test Item Value Reference Range Interpretation Comments Bedside Glucose (test code = 28896-7) 139 70-120 H Meter ID: [id number] Memorial Hospital Districtodium Level 2019-04-01 06:07:00* Test Item Value Reference Range Interpretation Comments Sodium Level (test code = 2951-2) 139 136-145 [facility] HospitalPotassium Yqcml8661-65-30 06:07:00* Test Item Value Reference Range Interpretation Comments Potassium Level (test code = 2823-3) 3.9 3.5-5.1 [facility] HospitalChloride Ygqfx2888-45-29 06:07:00* Test Item Value Reference Range Interpretation Comments Chloride Level (test code = 2075-0) 107 98-107 [facility] HospitalCarbon Dioxide Nwjbw9878-27-22 06:07:00* Test Item Value Reference Range Interpretation Comments Carbon Dioxide Level (test code = 2028-9) 25 22-29 [facility] HospitalAnion Cfu2386-83-03 06:07:00* Test Item Value Reference Range Interpretation Comments Anion Gap (test code = 14328-1) 10.9 8-16 [facility] HospitalBlood Urea Jvxtyqdp5123-66-37 06:07:00* Test Item Value Reference Range Interpretation Comments Blood Urea Nitrogen (test code = 3094-0) 13 7-26 [facility] HospitalCreatinine2019-11-14 06:07:00* Test Item Value Reference Range Interpretation Comments Creatinine (test code = 2160-0) 1.06 0.57-1.11 [facility] HospitalBUN/Creatinine Xqkhi2547-87-91 06:07:00* Test Item Value Reference Range Interpretation Comments BUN/Creatinine Ratio (test code = 3097-3) 12 6-25 [facility] HospitalEstimat Glomerular Filtration Rate 2019-04-01 06:07:00* Test Item Value Reference Range Interpretation Comments Estimat Glomerular Filtration Rate (test code = 932656123) > 60 >60 Ranges were taken from the National Kidney Disease Education Program and the [facility] literature.Reference ranges:60 or greater: Vypzhy89-22 ( for 3 consecutive months): Chronic kidney disease 15 or less: Kidney failureResolute Health HospitalGlucose Awyya8587-26-69 06:07:00* Test Item Value Reference Range Interpretation Comments Glucose Level (test code = DJV4780) 114 74-118 [facility] HospitalCalcium Ckmjj3844-22-23 06:07:00* Test Item Value Reference Range Interpretation Comments Calcium Level (test code = 33373-3) 9.0 8.4-10.2 [facility] HospitalWhite Blood Ynitr5258-64-65 05:55:00* Test Item Value Reference Range Interpretation Comments White Blood Count (test code = 6690-2) 13.32 4.8-10.8 H [facility] HospitalRed Blood Cpyeu3721-22-16 05:55:00* Test Item Value Reference Range Interpretation Comments Red Blood Count (test code = 789-8) 2.93 3.6-5.1 L [facility] HospitalHemoglobin2019-11-14 05:55:00* Test Item Value Reference Range Interpretation Comments Hemoglobin (test code = 44417-8) 7.8 12.0-16.0 L [facility] HospitalHematocrit2019-11-14 05:55:00* Test Item Value Reference Range Interpretation Comments Hematocrit (test code = 4544-3) 24.7 34.2-44.1 L [facility] HospitalMean Corpuscular Gwazmt9331-68-59 05:55:00* Test Item Value Reference Range Interpretation Comments Mean Corpuscular Volume (test code = 787-2) 84.3 81-99 [facility] HospitalMean Corpuscular Zolqelckqu4900-28-33 05:55:00* Test Item Value Reference Range Interpretation Comments Mean Corpuscular Hemoglobin (test code = 785-6) 26.6 28-32 L [facility] HospitalMean Corpuscular Hemoglobin Concent 2019-04-01 05:55:00* Test Item Value Reference Range Interpretation Comments Mean Corpuscular Hemoglobin Concent (test code = 786-4) 31.6 31-35 [facility] HospitalRed Cell Distribution Duatm0531-13-46 05:55:00* Test Item Value Reference Range Interpretation Comments Red Cell Distribution Width (test code = 40358-9) 13.8 11.7 -14.4 [facility] HospitalPlatelet Mnfli5255-55-98 05:55:00* Test Item Value Reference Range Interpretation Comments Platelet Count (test code = 777-3) 460 140-360 H [facility] HospitalNeutrophils (%) (Auto)2019-04-01 05:55:00 * Test Item Value Reference Range Interpretation Comments Neutrophils (%) (Auto) (test code = 74017-3) 59.9 38.7-80.0 [facility] HospitalLymphocytes (%) (Auto)2019-04-01 05:55:00 * Test Item Value Reference Range Interpretation Comments Lymphocytes (%) (Auto) (test code = 736-9) 27.6 18.0-39.1 [facility] HospitalMonocytes (%) (Auto)2019-04-01 05:55:00* Test Item Value Reference Range Interpretation Comments Monocytes (%) (Auto) (test code = 5905-5) 8.6 4.4-11.3 [facility] HospitalEosinophils (%) (Auto)2019-04-01 05:55:00 * Test Item Value Reference Range Interpretation Comments Eosinophils (%) (Auto) (test code = 713-8) 1.7 0.0-6.0 [facility] HospitalBasophils (%) (Auto)2019-04-01 05:55:00* Test Item Value Reference Range Interpretation Comments Basophils (%) (Auto) (test code = 706-2) 0.6 0.0-1.0 [facility] HospitalIM GRANULOCYTES %2019-04-01 05:55:00* Test Item Value Reference Range Interpretation Comments IM GRANULOCYTES % (test code = IM GRANULOCYTES %) 1.6 0.0- 1.0 H [facility] HospitalNeutrophils # (Auto)2019-04-01 05:55:00* Test Item Value Reference Range Interpretation Comments Neutrophils # (Auto) (test code = 751-8) 8.0 2.1-6.9 H [facility] HospitalLymphocytes # (Auto)2019-04-01 05:55:00* Test Item Value Reference Range Interpretation Comments Lymphocytes # (Auto) (test code = 25351-1) 3.7 1.0-3.2 H [facility] HospitalMonocytes # (Auto)2019-04-01 05:55:00* Test Item Value Reference Range Interpretation Comments Monocytes # (Auto) (test code = 742-7) 1.1 0.2-0.8 H [facility] HospitalEosinophils # (Auto)2019-04-01 05:55:00* Test Item Value Reference Range Interpretation Comments Eosinophils # (Auto) (test code = 711-2) 0.2 0.0-0.4 [facility] HospitalBasophils # (Auto)2019-04-01 05:55:00* Test Item Value Reference Range Interpretation Comments Basophils # (Auto) (test code = 704-7) 0.1 0.0-0.1 [facility] HospitalAbsolute Immature Granulocyte (auto 2019-04-01 05:55:00* Test Item Value Reference Range Interpretation Comments Absolute Immature Granulocyte (auto (gretchen t code = Absolute Immature Granulocyte (auto) 0.21 0-0.1 H [facility] HospitalCHEST SINGLE (PORTABLE)2019-03-29 03:52:00 [facility] [address] [place] [address] Patient Name: ANDREA HOOVER MR #: [id number] : 1960 Age/Sex: 59/F Req #: [id number] [facility] Physician: AMINAH ROBBINS MD Ordered by: AMINAH ROBBINS MD Report #: [id number] Location: [facility]Bed: Critical access hospital Procedure: [id number] DX/CHEST SINGLE (PORTABLE) Exam Date: 03/29/19 Exam Time: 0330 REPORT STATUS: Signed EXAMINATION: CHEST SINGLE (PORTABLE) INDICATION: Check PICC placement. COMPARISON: Chest radiograph 08/30/2017. FINDINGS: TUBES and [...] COPY TO: AMINAH ROBBINS MD Stool Occult Dockj1613-16-84 17:02:00* Test Item Value Reference Range Interpretation Comments Stool Occult Blood (test code = 2335-8) POSITIVE NEGATIVE [facility] Occult Iidqt0590-96-57 17:02:00* Test Item Value Reference Range Interpretation Comments Stool Occult Blood (test code = 2335-8) POSITIVE NEGATIVE [facility] Occult Gvlos1221-71-04 17:02:00* Test Item Value Reference Range Interpretation Comments Stool Occult Blood (test code = 2335-8) POSITIVE NEGATIVE [facility]12 Zaita8070-36-78 07:51:00* Test Item Value Reference Range Interpretation Comments Vitamin B12 Level (test code = 02760-2) 263 213-816 [facility] HospitalVitamin B12 Vtbpn4826-08-95 07:51:00* Test Item Value Reference Range Interpretation Comments Vitamin B12 Level (test code = 16710-8) 263 213-816 [facility] HospitalVitamin B12 Vogli3193-42-03 07:51:00* Test Item Value Reference Range Interpretation Comments Vitamin B12 Level (test code = 40758-0) 263 213-816 [facility] HospitalCT ABDOMEN/PELVIS PS7184-20-69 07:46:00 [facility] [address] [place] [address] Patient Name: ANDREA HOOVER MR #: [id number] : 1960 Age/Sex: 59/F Req #: [id number] Adm Physician: AMINAH ROBBINS MD Ordered by: AMINAH ROBBINS MD Report #: [id number] Location: MED/SURG3 Room/Bed: Critical [facility] hospital Procedure: [id number] CT/CT ABDOMEN/PELVIS WO Exam Date: 03/27/19 Exam [...] It is below the limits set by [facility] Radiation Protocol Committee (RPC). COMPARISON: CT abdomen/pelvis 03/24. ABDOMEN FINDINGS: Lung Bases: Increasing left basilar atelecta sis. Trace right basilar atelectasis. The visualized portion of the mediastinu m is normal. Liver: Mild steatosis. Stable calcification surgical clip in [facility] lateral aspect of the right lobe. Stable [...] on 03/28/19751 COPY TO: AMINAH ROBBINS MD Fxoehhal5959-14-23 07:39:00* Test Item Value Reference Range Interpretation Comments Ferritin (test code = 2276-4) 303.13 4.63-204.00 H [facility] HospitalFerritin2019-11-10 07:39:00* Test Item Value Reference Range Interpretation Comments Ferritin (test code = 2276-4) 303.13 4.63-204.00 H [facility] HospitalFerritin2019-11-10 07:39:00* Test Item Value Reference Range Interpretation Comments Ferritin (test code = 2276-4) 303.13 4.63-204.00 H [facility] HospitalIron Cviki3887-39-82 07:23:00* Test Item Value Reference Range Interpretation Comments Iron Level (test code = 2498-4) 12 50-170 L [facility] HospitalTotal Iron Binding Cvnakeyy0506-78-21 07:23:00* Test Item Value Reference Range Interpretation Comments Total Iron Binding Capacity (test code = 2500-7) 221 261-4 78 L [facility] HospitalPercent Iron Ayyjzxwdjm3307-22-94 07:23:00* Test Item Value Reference Range Interpretation Comments Percent Iron Saturation (test code = 2502-3) 5 15-50 L [facility] HospitalTransferrin2019-11-10 07:23:00* Test Item Value Reference Range Interpretation Comments Transferrin (test code = 3034-6) 158 180-382 L [facility] Ierakvujz4609-25-95 06:54:00* Test Item Value Reference Range Interpretation Comments Total Bilirubin (test code = 1975-2) 0.2 0.2-1.2 [facility] HospitalDirect Vhbtujprn5683-86-65 06:54:00* Test Item Value Reference Range Interpretation Comments Direct Bilirubin (test code = 50365-4) 0.1 0.0-0.5 [facility] HospitalAspartate Amino Transf (AST/SGOT) 2019-03-28 06:54:00* Test Item Value Reference Range Interpretation Comments Aspartate Amino Transf (AST/SGOT) (test code = Aspartate Amino Transf (AST/SGOT)) 13 5-34 [facility] HospitalAlanine Aminotransferase (ALT/SGPT) 2019-03-28 06:54:00* Test Item Value Reference Range Interpretation Comments Alanine Aminotransferase (ALT/SGPT) (test code = 1742-6) 7 0-55 [facility] HospitalTotal Muryifo4539-09-05 06:54:00* Test Item Value Reference Range Interpretation Comments Total Protein (test code = 2885-2) 7.0 6.5-8.1 [facility] HospitalAlbumin2019-11-10 06:54:00* Test Item Value Reference Range Interpretation Comments Albumin (test code = 1751-7) 2.4 3.5-5.0 L [facility] HospitalAlkaline Rnmslhmsksf0497-90-69 06:54:00* Test Item Value Reference Range Interpretation Comments Alkaline Phosphatase (test code = 6768-6) 112 40-150 [facility] HospitalLipase2019-11-10 06:54:00* Test Item Value Reference Range Interpretation Comments Lipase (test code = 3040-3) 18 8-78 [facility] HospitalProthrombin List3928-21-11 06:52:00* Test Item Value Reference Range Interpretation Comments Prothrombin Time (test code = 5902-2) 15.1 11.9-14.5 H [facility] HospitalProthromb Time International Ratio 2019-03-28 06:52:00* Test Item Value Reference Range Interpretation Comments Prothromb Time International Ratio (test code = 6301-6) 1.13 Oral Anticoagulant Therapy INR Values:1. Low Intensity Therapy 1.5 - 2.02 . Moderate Intensity Therapy 2.0 - 3.03. High Intensity Therapy(1) 2.5 - 3. 54. High Intensity Therapy(2) 3.0 - 4.05. Panic Value INR > 5.0 [facility] HospitalActivated Partial Thromboplast Time 2019-03-28 06:52:00* Test Item Value Reference Range Interpretation Comments Activated Partial Thromboplast Time (test code = 68716-1) 45.4 23.8-35.5 H [facility] HospitalPercent Reticulocyte Oitvy1238-52-46 06:37:00* Test Item Value Reference Range Interpretation Comments Percent Reticulocyte Count (test code = 35985-3) 1.1 0.8-2 .2 [facility] HospitalPercent Reticulocyte Keilu6725-20-43 06:37:00* Test Item Value Reference Range Interpretation Comments Percent Reticulocyte Count (test code = 38109-6) 1.1 0.8-2 .2 [facility] HospitalPercent Reticulocyte Xryke2493-23-02 06:37:00* Test Item Value Reference Range Interpretation Comments Percent Reticulocyte Count (test code = 30180-1) 1.1 0.8-2 .2 [facility] HospitalFOOT RIGHT LSKNAIPL9085-72-80 14:13:00 [facility] [address] [address] Patient Name: ANDREA HOOVER MR #: [id number] : 1960 Age/Sex: 59/F Req #: [id number] Adm Physician: AMINAH ROBBNIS MD Ordered by: AMINAH ROBBINS MD Report #: [id number] Location: [facility] Room/Bed: [place] [address] Procedure: [id number] DX/FOOT RIGHT COMPLETE Exam Date: 03/25/19 Exam [...] 2:15 PM Dictated By: PHILL NELSON MD 1415 Transcribed By: RUCHI on 03/25/19 1415 COPY TO: AMINAH SANDRA MD Zctzruwr1173-18-89 06:01:00* Test Item Value Reference Range Interpretation Comments Globulin (test code = 99322-0) 4.3 2.3-3.5 H [facility] HospitalAlbumin/Globulin Xdjzj2504-14-72 06:01:00 * Test Item Value Reference Range Interpretation Comments Albumin/Globulin Ratio (test code = 1759-0) 0.7 0.8-2.0 L [facility] HospitalDifferential Total Cells Counted 2019-03-24 21:08:00* Test Item Value Reference Range Interpretation Comments Differential Total Cells Counted (test code = Differkenna tial Total Cells Counted) 100 [facility] HospitalNeutrophils % (Manual)2019-03-24 21:08:00 * Test Item Value Reference Range Interpretation Comments Neutrophils % (Manual) (test code = 08439-1) 83 40-74 H [facility] HospitalLymphocytes % (Manual)2019-03-24 21:08:00 * Test Item Value Reference Range Interpretation Comments Lymphocytes % (Manual) (test code = 737-7) 8 19-48 L [facility] HospitalMonocytes % (Manual)2019-03-24 21:08:00* Test Item Value Reference Range Interpretation Comments Monocytes % (Manual) (test code = 744-3) 9 3.4-9.0 [facility] HospitalPlatelet Ulftfgcx8966-35-95 21:08:00* Test Item Value Reference Range Interpretation Comments Platelet Estimate (test code = 94456-4) ADEQUATE [facility] HospitalPlatelet Morphology Msqyrao3335-88-57 21:08:00* Test Item Value Reference Range Interpretation Comments Platelet Morphology Comment (test code = 15135-5) NORMAL [facility] HospitalHypochromasia2019-11-06 21:08:00* Test Item Value Reference Range Interpretation Comments Hypochromasia (test code = 728-6) SLIGHT [facility] HospitalRed Cell Morphology Vurkuqd9466-14-32 21:08:00* Test Item Value Reference Range Interpretation Comments Red Cell Morphology Comment (test code = 6742-1) NORMAL [facility] HospitalCT ABDOMEN/PELVIS [id number] 19:57:00 [facility] [address] [place] [address] Patient Name: ANDREA HOOVER MR #: [id number] : 1960 Age/Sex: 59/F Req #: [id number] [facility] Physician: Ordered by: DENZEL KAY MD Report #: [id number] Location: ER Room/Bed: Procedure: [id number] CT/CT ABDOMEN/PELVIS WO Exam Date: Exam Time: REPORT STATUS: Signed CT Abdomen and Pelvis without contrast INDICATION: Abdominal pain, fever, [...] on 03/24/2019 8:04 PM Dictated By: JEFFREY HOVOER MD Electronic ally Signed By: JEFFREY HOOVER MD on 03/24/192003 Transcribed By: RUCHI huang 03/24/192003 COPY TO: DENZEL KAY MD Urine AHC5305-07-05 18:42:00* Test Item Value Reference Range Interpretation Comments Urine WBC (test code = 5821-4) NONE 0-5 [facility] HospitalUrine DEI3609-16-99 18:42:00* Test Item Value Reference Range Interpretation Comments Urine RBC (test code = 91532-5) NONE 0-5 [facility] HospitalUrine Pllqlauc4205-37-40 18:42:00* Test Item Value Reference Range Interpretation Comments Urine Bacteria (test code = 90311-1) FEW NONE [facility] HospitalUrine Epithelial Uulpf0579-73-35 18:42:00 * Test Item Value Reference Range Interpretation Comments Urine Epithelial Cells (test code = 70628-5) FEW NONE [facility] HospitalInfluenza Virus Types A,B Antigen 2019-03-24 18:39:00* Test Item Value Reference Range Interpretation Comments Influenza Virus Types A,B Antigen (test code = 57993-6) NEGATIVE NEGATIVE [facility] HospitalUrine Kpsnp5156-83-55 18:33:00* Test Item Value Reference Range Interpretation Comments Urine Color (test code = 5778-6) YELLOW YELLOW [facility] HospitalUrine Wrnkoje2866-16-72 18:33:00* Test Item Value Reference Range Interpretation Comments Urine Clarity (test code = 58838-9) SL CLOUDY CLEAR [facility] HospitalUrine Specific Onwcsfl0214-46-62 18:33:00 * Test Item Value Reference Range Interpretation Comments Urine Specific [place] (test code = 5811-5) >=1.030 1.010-1.02 5 [facility] HospitalUrine [id number] 18:33:00* Test Item Value Reference Range Interpretation Comments Urine pH (test code = 45036-9) 6 5-7 [facility] HospitalUrine Leukocyte Nikfgkuq8516-35-77 18:33:00* Test Item Value Reference Range Interpretation Comments Urine Leukocyte Esterase (test code = 66711-7) NEGATIVE NEGATIV E [facility] HospitalUrine Gvcpwcg5119-25-84 18:33:00* Test Item Value Reference Range Interpretation Comments Urine Nitrite (test code = 66109-5) NEGATIVE NEGATIVE [facility] HospitalUrine Zuxyfez7003-57-24 18:33:00* Test Item Value Reference Range Interpretation Comments Urine Protein (test code = 00252-6) 3+ NEGATIVE H [facility] HospitalUrine Glucose (UA)2019-03-24 18:33:00* Test Item Value Reference Range Interpretation Comments Urine Glucose (UA) (test code = 84399-0) NEGATIVE NEGATIVE [facility] HospitalUrine Ogpwnpv4201-79-43 18:33:00* Test Item Value Reference Range Interpretation Comments Urine Ketones (test code = 04157-7) NEGATIVE NEGATIVE [facility] HospitalUrine Zydbthqyifmw5008-21-52 18:33:00* Test Item Value Reference Range Interpretation Comments Urine Urobilinogen (test code = 62486-4) 0.2 0.2-1 [facility] HospitalUrine Ecufnocxo2556-27-23 18:33:00* Test Item Value Reference Range Interpretation Comments Urine Bilirubin (test code = 1977-8) NEGATIVE NEGATIVE [facility] HospitalUrine Svikn3463-06-62 18:33:00* Test Item Value Reference Range Interpretation Comments Urine Blood (test code = 05621-6) NEGATIVE NEGATIVE [facility] HospitalGroup A Streptococcus Xpdaqp5598-87-64 18:29:00* Test Item Value Reference Range Interpretation Comments Group A Streptococcus Screen (test code = 64393-5) NEGATIVE NEG ATIVE [facility] HospitalUrine Mqkv8870-81-31 18:28:00* Test Item Value Reference Range Interpretation Comments Urine Test (test code = 2106-3) NEGATIVE NEGATIVE [facility] HospitalUrine Rmwl5174-48-27 18:28:00* Test Item Value Reference Range Interpretation Comments Urine Test (test code = 2106-3) NEGATIVE NEGATIVE [facility] HospitalUrine Qxec7652-13-75 18:28:00* Test Item Value Reference Range Interpretation Comments Urine Test (test code = 2106-3) NEGATIVE NEGATIVE [facility] HospitalPOCT-GLUCOSE OUYRL4552-34-87 13:57:00* Test Item Value Reference Range Interpretation Comments POC-GLUCOSE METER (BEAKER) (test code = 1538) 361 mg/dL 70-110 H TESTED AT [place] [id number] [facility] [address] POCT-GLUCOSE WQQLN1199-02-23 09:05:00* Test Item Value Reference Range Interpretation Comments POC-GLUCOSE METER (BEAKER) (test code = 1538) 324 mg/dL 70-110 H TESTED AT [place] [address] [facility] [address] BASIC METABOLIC TSKSC8898-65-51 08:11:00* Test Item Value Reference Range Interpretation [...] DIALYSIS PATIENTS. CBC W/PLT COUNT & AUTO YGCXPBYJJPQN0631-04-72 06:19:00* Test Item Value Reference Range Interpretation [...] code = 2801) 0 % 0-1 POCT-GLUCOSE ZNIHC9363-29-54 21:47:00* Test Item Value Reference Range Interpretation Comments POC-GLUCOSE METER (BEAKER) (test code = 1538) 328 mg/dL 70-110 H TESTED AT [facility] [address] [facility] [address] RAD, ABDOMEN, 2 HPZEI0861-17-42 20:38:00Reason for exam:->vomiting , diarrhea FINAL REPORT [...] calculi versus ingested material. Signed: Juan Crawford MDReport Verified Date /Time: 12/04/2018 20:38:57 Reading Location: [facility] Reading Room U/S, ABDOMINAL, MRLEBMRV6013-17-18 16:53:00Reason for exam:->vomiting diarrheaFINAL REPORT Ultrasound of [...] . Otherwise unremarkable abdominal ultrasound. Signed: Jenna Schroeder MDReport Verified Date/Time: 12/04/2018 16:53:00 Reading Location: [address] Reading Room Electronically signed by: JENNA SCHROEDER M.D. on 12/04 04:53 PM POCT-GLUCOSE BGUFM9355-50-05 12:21:00* Test Item Value Reference Range Interpretation Comments POC-GLUCOSE METER (BEAKER) (test code = 1538) 349 mg/dL 70-110 H TESTED AT [facility] [address] [facility] [address] POCT-GLUCOSE [id number] 08:05:00* Test Item Value Reference Range Interpretation Comments POC-GLUCOSE METER (BEAKER) (test code = 1538) 352 mg/dL 70-110 H TESTED AT [facility] [address] [facility] [address] POCT-GLUCOSE ZRTSN8191-89-70 03:08:00* Test Item Value Reference Range Interpretation Comments POC-GLUCOSE METER (BEAKER) (test code = 1538) 389 mg/dL 70-110 H TESTED AT [facility] [place] [address] POCT-GLUCOSE [id number] 23:55:00* Test Item Value Reference Range Interpretation Comments POC-GLUCOSE METER (BEAKER) (test code = 1538) 357 mg/dL 70-110 H TESTED AT [facility] [id number] URINALYSIS W/ CKUOWUMMIJI3421-91-16 22:31:00* Test Item Value Reference Range Interpretation [...] /HPF SOURCE(BEAKER) (test code = 2795) POCT-GLUCOSE [id number] 21:34:00* Test Item Value Reference Range Interpretation Comments POC-GLUCOSE METER (BEAKER) (test code = 1538) 394 mg/dL 70-110 H TESTED AT [place] [id number] KETONE, MFFUY9447-60-64 20:58:00* Test Item Value Reference Range Interpretation Comments KETONES, BLOOD (BEAKER) (test code = 1103) 0.1 mmol/L <0.4 POCT-GLUCOSE [id number] 20:48:00* Test Item Value Reference Range Interpretation Comments POC-GLUCOSE METER (BEAKER) (test code = 1538) 410 mg/dL 70-110 HH TESTED AT [facility] [address] [facility] [address] BASIC METABOLIC DLRQL9148-00-89 20:06:00* Test Item Value Reference Range Interpretation [...] NOT APPLICABLE FOR DIALYSIS PATIENTS. HEPATIC FUNCTION HILHS8210-21-09 20:00:00* Test Item Value Reference Range Interpretation [...] (test code = 347) 24 U/L 5-50 [id number] 20:00:00* Test Item Value Reference Range Interpretation Comments LIPASE (BEAKER) (test code = 749) 124 U/L 40-240 CBC W/PLT COUNT & AUTO YFSDWGEMLWTM9776-35-20 19:59:00* Test Item Value Reference Range Interpretation [...] K/ L 0. 00-0.20 CT, BRAIN, WITHOUT XFEWSPGX2499-01-73 19:19:00Reason for exam:->headacheIs the patient ?->UnknownWhat is [...] MDReport Verified Date/Time: 12/03/2018 19:19:03 Reading Location: [facility] Neuro Reading Room , SPINE, CERVICAL, WO PEZERJZF5058-53-43 19:19:00Reason for exam:->neck painWhat is the patient's [...] MDReport Verified Date/Time: 12/03/2018 19:19:03 Reading Location: [address] Room Electronically signed by: KACEY ALEXIS MD on 07:19 PM L SPINE 2-3 VEWS - [id number] 19:36:00 [place] [address] Patient Name: ANDREA HOOVER MR #: [id number] : 1960 Age/Sex: 58/F Req #: [id number] Adm Physician: Ordered by: JORGE BLOUNT MD Report #: [id number] Location: [facility] Room/Bed: Procedure: [id number] HOPD/L SPINE 2-3 VEWS - HOPD Exam [...] GILBERT MD, MD on 12/01/181936 Transcribed By: AMOS VAN on 12/01/181936 COPY TO: JORGE BLOUNT MD SPINE 2--3 VEWS - [id number] 19:35:00 [place] [address] Patient Name: ANDREA HOOVER MR #: [id number] : 1960 Age/Sex: 58/F Req #: [id number] Adm Physician: Ordered by: JORGE BLOUNT MD Report #: [id number] Location: [facility] Room/Bed: Procedure: [id number] HOPD/C SPINE 2--3 VEWS - HOPD Exam Date: Exam Time: REPORT STATUS: Signed Radiogra phs of the cervical spine - 3 views HISTORY: Pain COMPARISON: None avail able. FINDINGS: Bones: No acute displaced fracture. Osseous al ignment is within normal limits. Joints: Scattered degenerative change. N o osseous erosion Soft tissues: The soft tissues appear unremarkable. IMPRESSION: Scattered degenerative change. No osseous erosion Subtle fracture and soft tissue injury cannot be excluded based on this exam. If in dicated MRI may be of benefit. Signed by: Dr. Rona Gilbert M.D. on 7/16/201 9 7:36 PM Dictated By: RONA GILBERT MD, MD 35 Transcribed By: RUCHI on 12/01/181935 COPY TO: JORGE BLOUNT MD Bedside Ziszieg7173-76-89 11:38:00* Test Item Value Reference Range Interpretation Comments Bedside Glucose (test code = 32805-3) 195 70-120 H Meter ID: [id number] [facility] HospitalBedside Glucose 2018-08-18 11:38:00* Test Item Value Reference Range Interpretation Comments Bedside Glucose (test code = 33894-2) 195 70-120 H Meter ID: [id number] Health HospitalDifferential Total Cells Hdnpbie5707-79-74 09:00:00* Test Item Value Reference Range Interpretation Comments Differential Total Cells Counted (test code = Differen tial Total Cells Counted) 100 [facility] HospitalNeutrophils % (Manual)2018-08-18 09:00:00 * Test Item Value Reference Range Interpretation Comments Neutrophils % (Manual) (test code = 78719-5) 43 40-74 [facility] HospitalLymphocytes % (Manual)2018-08-18 09:00:00 * Test Item Value Reference Range Interpretation Comments Lymphocytes % (Manual) (test code = 737-7) 46 19-48 [facility] HospitalMonocytes % (Manual)2018-08-18 09:00:00* Test Item Value Reference Range Interpretation Comments Monocytes % (Manual) (test code = 744-3) 8 3.4-9.0 [facility] HospitalEosinophils % (Manual)2018-08-18 09:00:00 * Test Item Value Reference Range Interpretation Comments Eosinophils % (Manual) (test code = 714-6) 1 0-7 [facility] HospitalReactive Ibjapmlqzsi7323-66-51 09:00:00* Test Item Value Reference Range Interpretation Comments Reactive Lymphocytes (test code = 29438-4) 2 [facility] HospitalPlatelet Suquvxqd3624-78-09 09:00:00* Test Item Value Reference Range Interpretation Comments Platelet Estimate (test code = 56558-4) ADEQUATE [facility] HospitalPlatelet Morphology Ayuqgsv0631-00-27 09:00:00* Test Item Value Reference Range Interpretation Comments Platelet Morphology Comment (test code = 93474-1) NORMAL [facility] HospitalHypochromasia2019-04-02 09:00:00* Test Item Value Reference Range Interpretation Comments Hypochromasia (test code = 728-6) SLIGHT [facility] HospitalAnisocytosis2019-04-02 09:00:00* Test Item Value Reference Range Interpretation Comments Anisocytosis (test code = 702-1) SLIGHT [facility] HospitalRed Cell Morphology Hjjjtpb0340-56-52 09:00:00* Test Item Value Reference Range Interpretation Comments Red Cell Morphology Comment (test code = 6742-1) NORMAL [facility] HospitalDifferential Total Cells Counted 2018-08-18 09:00:00* Test Item Value Reference Range Interpretation Comments Differential Total Cells Counted (test code = Differkenna tial Total Cells Counted) 100 [facility] HospitalNeutrophils % (Manual)2018-08-18 09:00:00 * Test Item Value Reference Range Interpretation Comments Neutrophils % (Manual) (test code = 27015-1) 43 40-74 [facility] HospitalLymphocytes % (Manual)2018-08-18 09:00:00 * Test Item Value Reference Range Interpretation Comments Lymphocytes % (Manual) (test code = 737-7) 46 19-48 [facility] HospitalMonocytes % (Manual)2018-08-18 09:00:00* Test Item Value Reference Range Interpretation Comments Monocytes % (Manual) (test code = 744-3) 8 3.4-9.0 [facility] HospitalEosinophils % (Manual)2018-08-18 09:00:00 * Test Item Value Reference Range Interpretation Comments Eosinophils % (Manual) (test code = 714-6) 1 0-7 [facility] HospitalReactive Wtwyknhofcd4430-52-29 09:00:00* Test Item Value Reference Range Interpretation Comments Reactive Lymphocytes (test code = 14472-4) 2 [facility] HospitalPlatelet Faeflndl3102-52-89 09:00:00* Test Item Value Reference Range Interpretation Comments Platelet Estimate (test code = 45317-1) ADEQUATE [facility] HospitalPlatelet Morphology Rlzmhju8617-82-75 09:00:00* Test Item Value Reference Range Interpretation Comments Platelet Morphology Comment (test code = 16891-0) NORMAL [facility] HospitalHypochromasia2019-04-02 09:00:00* Test Item Value Reference Range Interpretation Comments Hypochromasia (test code = 728-6) SLIGHT [facility] HospitalAnisocytosis2019-04-02 09:00:00* Test Item Value Reference Range Interpretation Comments Anisocytosis (test code = 702-1) SLIGHT [facility] HospitalRed Cell Morphology Evtggop1187-24-86 09:00:00* Test Item Value Reference Range Interpretation Comments Red Cell Morphology Comment (test code = 6742-1) NORMAL [facility] HospitalEosinophils % (Manual)2018-08-18 09:00:00 * Test Item Value Reference Range Interpretation Comments Eosinophils % (Manual) (test code = 714-6) 1 0-7 [facility] HospitalReactive Uunigmvjstb3981-09-75 09:00:00* Test Item Value Reference Range Interpretation Comments Reactive Lymphocytes (test code = 28869-8) 2 [facility] HospitalAnisocytosis2019-04-02 09:00:00* Test Item Value Reference Range Interpretation Comments Anisocytosis (test code = 702-1) SLIGHT [facility] HospitalC-Reactive Syhdeoy9841-72-42 08:58:00* Test Item Value Reference Range Interpretation Comments C-Reactive Protein (test code = 1987-) 14.6 0.0-4.9 H Performed at: [facility] [id number] Director: Manjeet Pritchard MD, Phone: [phone] Health HospitalC-Reactive Ctiexvm3734-64-59 08:58:00* Test Item Value Reference Range Interpretation Comments C-Reactive Protein (test code = 1987-) 14.6 0.0-4.9 H Performed at: HD - [facility] [address] [id number] Director: Manjeet Pritchard MD, Phone: [phone] Health HospitalC-Reactive Yfsaldq4070-59-48 08:58:00* Test Item Value Reference Range Interpretation Comments C-Reactive Protein (test code = 1987-) 14.6 0.0-4.9 H Performed at: [facility] - [facility] [address] [id number] Director: Manjeet Pritchard MD, Phone: [phone] Health HospitalHemoglobin A1c Jcdyvjx1254-14-96 06:45:00* Test Item Value Reference Range Interpretation Comments Hemoglobin A1c Percent (test code = Hemoglobin A1c Percent) 12.9 4.0-7.0 H [facility] HospitalHemoglobin A1c Erssddf8043-32-44 06:45:00 * Test Item Value Reference Range Interpretation Comments Hemoglobin A1c Percent (test code = Hemoglobin A1c Percent) 12.9 4.0-7.0 H [facility] HospitalHemoglobin A1c Octyoff8901-12-66 06:45:00 * Test Item Value Reference Range Interpretation Comments Hemoglobin A1c Percent (test code = Hemoglobin A1c Percent) 12.9 4.0-7.0 H [facility] HospitalWhite Blood Szpau6374-01-83 05:58:00* Test Item Value Reference Range Interpretation Comments White Blood Count (test code = 6690-2) 11.14 4.8-10.8 H [facility] HospitalRed Blood Rxcbb5889-54-39 05:58:00* Test Item Value Reference Range Interpretation Comments Red Blood Count (test code = 789-8) 3.56 3.6-5.1 L [facility] HospitalHemoglobin2019-04-02 05:58:00* Test Item Value Reference Range Interpretation Comments Hemoglobin (test code = 62745-8) 9.4 12.0-16.0 L [facility] HospitalHematocrit2019-04-02 05:58:00* Test Item Value Reference Range Interpretation Comments Hematocrit (test code = 4544-3) 30.1 34.2-44.1 L [facility] HospitalMean Corpuscular Akzgvr8525-90-27 05:58:00* Test Item Value Reference Range Interpretation Comments Mean Corpuscular Volume (test code = 787-2) 84.6 81-99 [facility] HospitalMean Corpuscular Lheirrgifw3134-11-65 05:58:00* Test Item Value Reference Range Interpretation Comments Mean Corpuscular Hemoglobin (test code = 785-6) 26.4 28-32 L [facility] HospitalMean Corpuscular Hemoglobin Concent 2018-08-18 05:58:00* Test Item Value Reference Range Interpretation Comments Mean Corpuscular Hemoglobin Concent (test code = 786-4) 31.2 31-35 [facility] HospitalRed Cell Distribution Udkwp4463-43-34 05:58:00* Test Item Value Reference Range Interpretation Comments Red Cell Distribution Width (test code = 66731-0) 14.7 11.7 -14.4 H [facility] HospitalPlatelet Tuexk4350-17-15 05:58:00* Test Item Value Reference Range Interpretation Comments Platelet Count (test code = 777-3) 316 140-360 [facility] HospitalNeutrophils (%) (Auto)2018-08-18 05:58:00 * Test Item Value Reference Range Interpretation Comments Neutrophils (%) (Auto) (test code = 25929-3) 43.8 38.7-80.0 [facility] HospitalLymphocytes (%) (Auto)2018-08-18 05:58:00 * Test Item Value Reference Range Interpretation Comments Lymphocytes (%) (Auto) (test code = 736-9) 45.8 18.0-39.1 H [facility] HospitalMonocytes (%) (Auto)2018-08-18 05:58:00* Test Item Value Reference Range Interpretation Comments Monocytes (%) (Auto) (test code = 5905-5) 7.8 4.4-11.3 [facility] HospitalEosinophils (%) (Auto)2018-08-18 05:58:00 * Test Item Value Reference Range Interpretation Comments Eosinophils (%) (Auto) (test code = 713-8) 1.9 0.0-6.0 [facility]Bas[facility] (%) (Auto)2018-08-18 05:58:00* Test Item Value Reference Range Interpretation Comments Basophils (%) (Auto) (test code = 706-2) 0.4 0.0-1.0 [facility] HospitalIM GRANULOCYTES %2018-08-18 05:58:00* Test Item Value Reference Range Interpretation Comments IM GRANULOCYTES % (test code = IM GRANULOCYTES %) 0.3 0.0- 1.0 [facility] HospitalNeutrophils # (Auto)2018-08-18 05:58:00* Test Item Value Reference Range Interpretation Comments Neutrophils # (Auto) (test code = 751-8) 4.9 2.1-6.9 [facility] HospitalLymphocytes # (Auto)2018-08-18 05:58:00* Test Item Value Reference Range Interpretation Comments Lymphocytes # (Auto) (test code = 40528-1) 5.1 1.0-3.2 H [facility] HospitalMonocytes # (Auto)2018-08-18 05:58:00* Test Item Value Reference Range Interpretation Comments Monocytes # (Auto) (test code = 742-7) 0.9 0.2-0.8 H [facility] HospitalEosinophils # (Auto)2018-08-18 05:58:00* Test Item Value Reference Range Interpretation Comments Eosinophils # (Auto) (test code = 711-2) 0.2 0.0-0.4 [facility] HospitalBasophils # (Auto)2018-08-18 05:58:00* Test Item Value Reference Range Interpretation Comments Basophils # (Auto) (test code = 704-7) 0.1 0.0-0.1 [facility] HospitalAbsolute Immature Granulocyte (auto 2018-08-18 05:58:00* Test Item Value Reference Range Interpretation Comments Absolute Immature Granulocyte (auto (gretchen t code = Absolute Immature Granulocyte (auto) 0.03 0-0.1 [facility] HospitalWhite Blood Pejvm7764-34-08 05:58:00* Test Item Value Reference Range Interpretation Comments White Blood Count (test code = 6690-2) 11.14 4.8-10.8 H [facility] HospitalRed Blood Abdwu7761-52-12 05:58:00* Test Item Value Reference Range Interpretation Comments Red Blood Count (test code = 789-8) 3.56 3.6-5.1 L [facility] HospitalHemoglobin2019-04-02 05:58:00* Test Item Value Reference Range Interpretation Comments Hemoglobin (test code = 83781-1) 9.4 12.0-16.0 L [facility] HospitalHematocrit2019-04-02 05:58:00* Test Item Value Reference Range Interpretation Comments Hematocrit (test code = 4544-3) 30.1 34.2-44.1 L [facility] HospitalMean Corpuscular Uphrrd5076-30-00 05:58:00* Test Item Value Reference Range Interpretation Comments Mean Corpuscular Volume (test code = 787-2) 84.6 81-99 [facility] HospitalMean Corpuscular Eozyxmheqj3007-95-94 05:58:00* Test Item Value Reference Range Interpretation Comments Mean Corpuscular Hemoglobin (test code = 785-6) 26.4 28-32 L [facility] HospitalMean Corpuscular Hemoglobin Concent 2018-08-18 05:58:00* Test Item Value Reference Range Interpretation Comments Mean Corpuscular Hemoglobin Concent (test code = 786-4) 31.2 31-35 [facility] HospitalRed Cell Distribution Rciuu6863-88-36 05:58:00* Test Item Value Reference Range Interpretation Comments Red Cell Distribution Width (test code = 98612-5) 14.7 11.7 -14.4 H [facility] HospitalPlatelet Oktcg2038-68-36 05:58:00* Test Item Value Reference Range Interpretation Comments Platelet Count (test code = 777-3) 316 140-360 [facility] HospitalNeutrophils (%) (Auto)2018-08-18 05:58:00 * Test Item Value Reference Range Interpretation Comments Neutrophils (%) (Auto) (test code = 96021-2) 43.8 38.7-80.0 [facility] HospitalLymphocytes (%) (Auto)2018-08-18 05:58:00 * Test Item Value Reference Range Interpretation Comments Lymphocytes (%) (Auto) (test code = 736-9) 45.8 18.0-39.1 H [facility] HospitalMonocytes (%) (Auto)2018-08-18 05:58:00* Test Item Value Reference Range Interpretation Comments Monocytes (%) (Auto) (test code = 5905-5) 7.8 4.4-11.3 [facility] HospitalEosinophils (%) (Auto)2018-08-18 05:58:00 * Test Item Value Reference Range Interpretation Comments Eosinophils (%) (Auto) (test code = 713-8) 1.9 0.0-6.0 [facility] HospitalBasophils (%) (Auto)2018-08-18 05:58:00* Test Item Value Reference Range Interpretation Comments Basophils (%) (Auto) (test code = 706-2) 0.4 0.0-1.0 [facility] HospitalIM GRANULOCYTES %2018-08-18 05:58:00* Test Item Value Reference Range Interpretation Comments IM GRANULOCYTES % (test code = IM GRANULOCYTES %) 0.3 0.0- 1.0 [facility] HospitalNeutrophils # (Auto)2018-08-18 05:58:00* Test Item Value Reference Range Interpretation Comments Neutrophils # (Auto) (test code = 751-8) 4.9 2.1-6.9 [facility] HospitalLymphocytes # (Auto)2018-08-18 05:58:00* Test Item Value Reference Range Interpretation Comments Lymphocytes # (Auto) (test code = 14082-8) 5.1 1.0-3.2 H [facility] HospitalMonocytes # (Auto)2018-08-18 05:58:00* Test Item Value Reference Range Interpretation Comments Monocytes # (Auto) (test code = 742-7) 0.9 0.2-0.8 H [facility] HospitalEosinophils # (Auto)2018-08-18 05:58:00* Test Item Value Reference Range Interpretation Comments Eosinophils # (Auto) (test code = 711-2) 0.2 0.0-0.4 [facility] HospitalBasophils # (Auto)2018-08-18 05:58:00* Test Item Value Reference Range Interpretation Comments Basophils # (Auto) (test code = 704-7) 0.1 0.0-0.1 [facility] HospitalAbsolute Immature Granulocyte (auto 2018-08-18 05:58:00* Test Item Value Reference Range Interpretation Comments Absolute Immature Granulocyte (auto (gretchen t code = Absolute Immature Granulocyte (auto) 0.03 0-0.1 [facility] Centerodium Pssfz2818-42-90 05:48:00* Test Item Value Reference Range Interpretation Comments Sodium Level (test code = 2951-2) 134 136-145 L [facility] HospitalPotassium Huagm7713-80-94 05:48:00* Test Item Value Reference Range Interpretation Comments Potassium Level (test code = 2823-3) 4.4 3.5-5.1 [facility] HospitalChloride Nglvd8545-99-09 05:48:00* Test Item Value Reference Range Interpretation Comments Chloride Level (test code = 2075-0) 103 98-107 [facility] HospitalCarbon Dioxide Kgyxq2140-58-78 05:48:00* Test Item Value Reference Range Interpretation Comments Carbon Dioxide Level (test code = 2028-9) 26 22-29 [facility] HospitalAnion Uwm9490-69-84 05:48:00* Test Item Value Reference Range Interpretation Comments Anion Gap (test code = 95171-6) 9.4 8-16 [facility] HospitalBlood Urea Frkovwuo4500-56-28 05:48:00* Test Item Value Reference Range Interpretation Comments Blood Urea Nitrogen (test code = 3094-0) 24 7-26 [facility] HospitalCreatinine2019-04-02 05:48:00* Test Item Value Reference Range Interpretation Comments Creatinine (test code = 2160-0) 1.24 0.57-1.11 H [facility] HospitalBUN/Creatinine Vozuo2909-62-49 05:48:00* Test Item Value Reference Range Interpretation Comments BUN/Creatinine Ratio (test code = 3097-3) 19 6-25 [facility] HospitalEstimat Glomerular Filtration Rate 2018-08-18 05:48:00* Test Item Value Reference Range Interpretation Comments Estimat Glomerular Filtration Rate (test code = 793350102) 54 >60 L Ranges were taken from the National Kidney Disease Education Program and the [facility] literature.Reference ranges:60 or greater: Sqgbkt84-78 ( for 3 consecutive months): Chronic kidney disease 15 or less: Kidney failureResolute Health HospitalGlucose Pehut6533-19-80 05:48:00* Test Item Value Reference Range Interpretation Comments Glucose Level (test code = LZQ8234) 294 74-118 H [facility] HospitalCalcium Rsofb3709-67-42 05:48:00* Test Item Value Reference Range Interpretation Comments Calcium Level (test code = 61686-9) 8.7 8.4-10.2 [facility] HospitalMagnesium Eftug8542-70-81 05:48:00* Test Item Value Reference Range Interpretation Comments Magnesium Level (test code = 46321-9) 1.9 1.3-2.1 [facility] Centerodium Klmxy8204-87-17 05:48:00* Test Item Value Reference Range Interpretation Comments Sodium Level (test code = 2951-2) 134 136-145 L [facility] HospitalPotassium Ojczd2721-16-56 05:48:00* Test Item Value Reference Range Interpretation Comments Potassium Level (test code = 2823-3) 4.4 3.5-5.1 [facility] HospitalChloride Vahkn4663-65-96 05:48:00* Test Item Value Reference Range Interpretation Comments Chloride Level (test code = 2075-0) 103 98-107 [facility] HospitalCarbon Dioxide Xkokk3756-40-20 05:48:00* Test Item Value Reference Range Interpretation Comments Carbon Dioxide Level (test code = 2028-9) 26 22-29 [facility] HospitalAnion Emd1667-33-61 05:48:00* Test Item Value Reference Range Interpretation Comments Anion Gap (test code = 47830-6) 9.4 8-16 [facility] HospitalBlood Urea Ehndxidy2837-80-36 05:48:00* Test Item Value Reference Range Interpretation Comments Blood Urea Nitrogen (test code = 3094-0) 24 7-26 [facility] HospitalCreatinine2019-04-02 05:48:00* Test Item Value Reference Range Interpretation Comments Creatinine (test code = 2160-0) 1.24 0.57-1.11 H [facility] HospitalBUN/Creatinine Yylgd2466-35-08 05:48:00* Test Item Value Reference Range Interpretation Comments BUN/Creatinine Ratio (test code = 3097-3) 19 6-25 [facility] HospitalEstimat Glomerular Filtration Rate 2018-08-18 05:48:00* Test Item Value Reference Range Interpretation Comments Estimat Glomerular Filtration Rate (test code = 051774939) 54 >60 L Ranges were taken from the National Kidney Disease Education Program and the [facility] literature.Reference ranges:60 or greater: Ntarwg52-56 ( for 3 consecutive months): Chronic kidney disease 15 or less: Kidney failureResolute Health HospitalGlucose Wzyzn9119-12-75 05:48:00* Test Item Value Reference Range Interpretation Comments Glucose Level (test code = KKJ4695) 294 74-118 H [facility] HospitalCalcium Qnwsf3866-13-58 05:48:00* Test Item Value Reference Range Interpretation Comments Calcium Level (test code = 70682-1) 8.7 8.4-10.2 [facility] HospitalMagnesium Hxipr8173-21-75 05:48:00* Test Item Value Reference Range Interpretation Comments Magnesium Level (test code = 62254-5) 1.9 1.3-2.1 [facility] HospitalMagnesium Lifpi5390-76-27 05:48:00* Test Item Value Reference Range Interpretation Comments Magnesium Level (test code = 84830-1) 1.9 1.3-2.1 [facility] HospitalProthrombin Plmp5290-75-84 05:43:00* Test Item Value Reference Range Interpretation Comments Prothrombin Time (test code = 5902-2) 12.3 11.9-14.5 [facility] HospitalProthromb Time International Ratio 2018-08-18 05:43:00* Test Item Value Reference Range Interpretation Comments Prothromb Time International Ratio (test code = 6301-6) 0.87 Oral Anticoagulant Therapy INR Values:1. Low Intensity Therapy 1.5 - 2.02 . Moderate Intensity Therapy 2.0 - 3.03. High Intensity Therapy(1) 2.5 - 3. 54. High Intensity Therapy(2) 3.0 - 4.05. Panic Value INR > 5.0 [facility] HospitalActivated Partial Thromboplast Time 2018-08-18 05:43:00* Test Item Value Reference Range Interpretation Comments Activated Partial Thromboplast Time (test code = 22703-6) 24.9 23.8-35.5 [facility] HospitalProthrombin Tuqj9674-97-67 05:43:00* Test Item Value Reference Range Interpretation Comments Prothrombin Time (test code = 5902-2) 12.3 11.9-14.5 [facility] HospitalProthromb Time International Ratio 2018-08-18 05:43:00* Test Item Value Reference Range Interpretation Comments Prothromb Time International Ratio (test code = 6301-6) 0.87 Oral Anticoagulant Therapy INR Values:1. Low Intensity Therapy 1.5 - 2.02 . Moderate Intensity Therapy 2.0 - 3.03. High Intensity Therapy(1) 2.5 - 3. 54. High Intensity Therapy(2) 3.0 - 4.05. Panic Value INR > 5.0 [facility] HospitalActivated Partial Thromboplast Time 2018-08-18 05:43:00* Test Item Value Reference Range Interpretation Comments Activated Partial Thromboplast Time (test code = 55993-0) 24.9 23.8-35.5 [facility] [id number] 15:54:00 [facility] [address] [address] Patient Name: ANDREA HOOVER MR #: [id number] : 1960 Age/Sex: 58/F Req #: [id number] Adm Physician: AMINAH ROBBINS MD Ordered by: AMINAH ROBBINS MD Report #: [id number] Location: [facility] Room/Bed: [place] [address] Procedure: [id number] MR I/MRI SPINE LUMBAR WO Exam Date: Exam Time: REPORT STATUS: Signed History: Low back pain Comparison studies: CT of the lumbar [...] by: DR Pedro Singh M.D. on 08/18/19 3:59 PM Dictated By: PEDRO PICKENS MD 58 Transcribed By: RUCHI on 08/17/181558 COPY TO: AMINAH ROBBINS MD CT LUMBAR SPINE [id number]-[id number] 20:11:00 [place] [address] Patient Name: ANDREA HOOVER MR #: [id number] : 1960 Age/Sex: 58/F Req #: [id number] Adm Physician: Ordered by: EVANGELINA BAIRD MD Report #: [id number] Location: [facility] Room/Bed: Procedure: [id number] HOPD /CT LUMBAR SPINE WITHOUT-HOPD Exam Date: 08/16/18 Ex am Time: 1926 REPORT STATUS: Signed EXAMINATION: CT of the lumbar spine HISTORY: Low back pain radiating to the bilateral lower extremities. COMPARISON: None available TECHNIQUE: [facility] tidetector helical axial images were obtained without [...] canal stenosis. Moderate left and mild right foraminal stenosis.. L5-S1: Bilateral facet arthrosis without significant canal or f oraminal stenosis.. IMPRESSION: 1. No acute lumbar spine abnormalit ies. 2. Moderate degenerative foraminal stenosis on the right at L3-L4 and on the left at L4-L5. 3. Mild degenerative spinal canal stenoses at L4-L5. Signed by: Dr. Nawaf Davis M.D. on 08/16/2018 8:16 PM Dictated By: NAWAF DAVIS MD 15 Tr anscribed By: RUCHI on 08/16/182015 COPY TO: EVANGELINA BAIRD MD CT C-SPINE W/O - [id number] 20:07:00 [place] [address] Patient Name: ANDREA HOOVER MR #: [id number] : 1960 Age/Sex: 58/F Req #: [id number] Adm Physician: Ordered by: EVANGELINA BAIRD MD Report #: [id number] Location: [facility] Room/Bed: Procedure: [id number] HOPD /CT C-SPINE W/O - HOPD Exam Date: 08/16/18 Exam Time : 1933 REPORT STATUS: Signed EXA MINATION: CT of [...] 1538) 405 mg/dL 70-110 HH TESTED AT [facility] [address] [facility] [address] BASIC METABOLIC [id number] 10:07:00* Test Item Value Reference Range Interpretation Comments SODIUM (BEAKER) (test code = 381) 132 meq/L 135-148 L POTASSIUM (BEAKER) (test code = 379) 5.9 meq/L 3.6-5.5 H CHLORIDE (BEAKER) (test code = 382) 99 meq/L 98-106 CO2 (BEAKER) (test code = 355) 22 meq/L 24-32 L BLOOD UREA NITROGEN (BEAKER) (test code = 354) 20 mg/dL 03-13 CREATININE (BEAKER) (test code = 358) 1.05 mg/dL 0.50-1.20 GLUCOSE RANDOM (BEAKER) (test code = 652) 446 mg/dL 70-110 HH CALCIUM (BEAKER) (test code = 697) 9.3 mg/dL 8.5-10.5 EGFR (BEAKER) (test code = 1092) 66 mL/min/1.73 sq m ESTIMATED GFR IS NOT ACCURATE CREATININE CLEARANCE IN PREDICTING GLOMERULAR FILTRATION RATE. ESTIMATED GFR IS NOT APPLICABLE FOR DIALYSIS PATIENTS. [id number] 10:03:00* Test Item Value Reference Range Interpretation Comments MAGNESIUM (BEAKER) (test code = 627) 1.8 mg/dL 1.5-3.0 [id number] 10:03:00* Test Item Value Reference Range Interpretation Comments PHOSPHORUS (BEAKER) (test code = 604) 3.6 mg/dL 2.5-4.5 CREATINE KINASE (CK)2018-08-11 10:03:00* Test Item Value Reference Range Interpretation Comments CREATINE KINASE TOTAL (BEAKER) (test code = 380) 155 U/L 25-23 5 CBC W/PLT COUNT & AUTO [id number] 09:50:00* Test Item Value Reference Range Interpretation [...] L 0. 00-0.20 RAD, HIP, 2 VIEWS, [id number] 09:31:00Reason for exam:->HIP PAINxright hip/leg pain x [...] Garza Verified Date/Time: 08/11/2018 09:31:19 Reading Location: [facility] Radiology Reading Room 0 9:31 AM AFB CULTURE + [id number] 12:53:00* Test Item Value Reference Range Interpretation Comments CULTURE (BEAKER) (test code = 1095) No acid-fast bacilli isolate d in 42 days AFB SMEAR (BEAKER) (test code = 994) No acid fast bacilli seen AFB CULTURE + [id number] 12:53:00* Test Item Value Reference Range Interpretation Comments CULTURE (BEAKER) (test code = 1095) No acid-fast bacilli isolate d in 42 days AFB SMEAR (BEAKER) (test code = 994) No acid fast bacilli seen AFB CULTURE + [id number] 14:36:00* Test Item Value Reference Range Interpretation Comments CULTURE (BEAKER) (test code = 1095) No acid-fast bacilli isolate d in 42 days AFB SMEAR (BEAKER) (test code = 994) No acid fast bacilli seen BLOOD [id number] 11:00:00* Test Item Value Reference Range Interpretation Comments CULTURE (BEAKER) (test code = 1095) No growth in 5 days BLOOD [id number] 11:00:00* Test Item Value Reference Range Interpretation Comments CULTURE (BEAKER) (test code = 1095) No growth in 5 days POCT-GLUCOSE [id number] 13:22:00* Test Item Value Reference Range Interpretation Comments POC-GLUCOSE METER (BEAKER) (test code = 1538) 119 mg/dL 70-110 H TESTED AT [facility] [address] [facility] [address] SPUTUM CULTURE + GRAM [id number] 09:15:00* Test Item Value Reference Range Interpretation Comments CULTURE (BEAKER) (test code = 1095) 1+ Normal respiratory ale pre sent GRAM STAIN RESULT (BEAKER) (test code = 1123) 2+ White blood cells seen GRAM STAIN RESULT (BEAKER) (test code = 50004) 0-5 epithelial cells GRAM STAIN RESULT (BEAKER) (test code = 26149) 1+ gram negative lázaro s GRAM STAIN RESULT (BEAKER) (test code = 579225) 2+ gram posi tive cocci in pairs POCT-GLUCOSE [id number] 08:45:00* Test Item Value Reference Range Interpretation Comments POC-GLUCOSE METER (BEAKER) (test code = 1538) 227 mg/dL 70-110 H TESTED AT [facility] [address] [facility] [address] CBC W/PLT COUNT & AUTO [id number] 08:10:00* Test Item Value Reference Range Interpretation [...] quate Received comment: User comments: Slide comments: [id number] 04:34:00* Test Item Value Reference Range Interpretation Comments PHOSPHORUS (BEAKER) (test code = 604) 2.7 mg/dL 2.3-4.7 [id number] 04:34:00* Test Item Value Reference Range Interpretation Comments MAGNESIUM (BEAKER) (test code = 627) 1.7 mg/dL 1.6-2.6 BASIC METABOLIC [id number] 04:34:00* Test Item Value Reference Range Interpretation [...] IS NOT APPLICABLE FOR DIALYSIS PATIENTS. POCT-GLUCOSE [id number] 21:20:00* Test Item Value Reference Range Interpretation Comments POC-GLUCOSE METER (BEAKER) (test code = 1538) 314 mg/dL 70-110 H TESTED AT [address] [address] POCT-GLUCOSE [id number] 15:01:00* Test Item Value Reference Range Interpretation Comments POC-GLUCOSE METER (BEAKER) (test code = 1538) 103 mg/dL 70-110 TESTED AT [address] [address] SPIN/CONCENTRATION [id number] 14:17:00* Test Item Value Reference Range Interpretation Comments CONCENTRATION CHARGED (BEAKER) (test code = 2657) Done SPIN/CONCENTRATION [id number] 14:15:00* Test Item Value Reference Range Interpretation Comments CONCENTRATION CHARGED (BEAKER) (test code = 2657) Done POCT-GLUCOSE [id number] 08:32:00* Test Item Value Reference Range Interpretation Comments POC-GLUCOSE METER (BEAKER) (test code = 1538) 137 mg/dL 70-110 H TESTED AT [address] [address] [id number] 05:03:00* Test Item Value Reference Range Interpretation Comments PHOSPHORUS (BEAKER) (test code = 604) 3.6 mg/dL 2.3-4.7 [id number] 05:03:00* Test Item Value Reference Range Interpretation Comments MAGNESIUM (BEAKER) (test code = 627) 1.6 mg/dL 1.6-2.6 BASIC METABOLIC [id number] 05:03:00* Test Item Value Reference Range Interpretation [...] DIALYSIS PATIENTS. CBC W/PLT COUNT & AUTO [id number] 04:48:00* Test Item Value Reference Range Interpretation [...] code = 2801) 1 % 0-1 POCT-GLUCOSE [id number] 21:11:00* Test Item Value Reference Range Interpretation Comments POC-GLUCOSE METER (BEAKER) (test code = 1538) 170 mg/dL 70-110 H TESTED AT [facility] [address] [facility] [address] POCT-GLUCOSE [id number] 18:09:00* Test Item Value Reference Range Interpretation Comments POC-GLUCOSE METER (BEAKER) (test code = 1538) 169 mg/dL 70-110 H TESTED AT [facility] [address] [facility] [address] SPIN/CONCENTRATION [id number] 15:41:00* Test Item Value Reference Range Interpretation Comments CONCENTRATION CHARGED (BEAKER) (test code = 2657) Done POCT-GLUCOSE [id number] 12:27:00* Test Item Value Reference Range Interpretation Comments POC-GLUCOSE METER (BEAKER) (test code = 1538) 193 mg/dL 70-110 H TESTED AT [facility] [address] [facility] [address] RESPIRATORY PANEL [id number] 10:40:00* Test Item Value Reference Range Interpretation Comments HUMAN METAPNEUMOVIRUS (BEAKER) (test code = 2683) Not detect ed Not detected, Equivocal RHINOVIRUS (BEAKER) (test code = 2684) Not detected Not detected, E quivocal INFLUENZA A (BEAKER) (test code = 4415) Not detected Not detected, Equivocal INFLUENZA A [...] RESPIRATORY SYNCYTIAL VIRUS (BEAKER) (test code = 7139) Dete cted Not detected, Equivocal A Assay is not able differenti ate between RSV A and RSV B.Contact isolation if immunosuppressed or young children. Consider stopping antibiotics. PARAINFLUENZA VIRUS 1 (BEAKER) (test code = 3701) Not detect ed Not detected, Equivocal PARAINFLUENZA VIRUS 2 (BEAKER) (test code = 2312) Not detect ed Not detected, Equivocal PARAINFLUENZA VIRUS 3 (BEAKER) (test code = 2693) Not detect ed Not detected, Equivocal PARAINFLUENZA VIRUS 4 (BEAKER) (test code = 3980) Not detect ed Not detected, Equivocal ADENOVIRUS (BEAKER) (test code = 8584) Not detected Not detected, E quivocal CORONAVIRUS 229E (BEAKER) (test code = 3201) Not detected Not detected, Equivocal CORONAVIRUS HKU1 (BEAKER) (test code = 3202) Not detected Not detected, Equivocal CORONAVIRUS NL63 (BEAKER) (test code = 3203) Not detected Not detected, Equivocal CORONAVIRUS OC43 (GAL) (test code = 3204) Not detected Not detected, Equivocal BORDETELLA PERTUSSIS (BEAKER) (test code = 3205) Not detecte d Not detected, Equivocal CHLAMYDOPHILA PNEUMONIAE (BEAKER) (test code = 3206) Not det ected Not detected, Equivocal MYCOPLASMA PNEUMONIAE (EDERAKER) (test code = 3207) Not detect ed [...] sample was tested at the [facility] using the [employer] rray Respiratory Panel. It is FDA cleared and has been verified and approved by the [facility] for clinical use on nasal swab specim ens. It is not FDA-cleared for use on bronchial wash/lavage samples. However, fo r this sample type, validation was performed and test characteristics were deter mined and approved, by [facility] laboratory for clinical use u nder the Clinical Laboratory Improvement Amendments (CLIA) of 1988 requirements. Therefore, FDA clearance is not required. This laboratory is CLIA-certified and [employer] (CAP)-accredited to perform high complexity t esting.HEMOGLOBIN [id number] 09:23:00* Test Item Value Reference Range Interpretation Comments HEMOGLOBIN A1C (GAL) (test code = 368) 13.4 % 4.3-6.1 H POCT-GLUCOSE [id number] 08:26:00* Test Item Value Reference Range Interpretation Comments POC-GLUCOSE METER (GAL) (test code = 1538) 263 mg/dL 70-110 H TESTED AT [facility] [address] [facility] [address] LEGIONELLA ANTIGEN, [id number] 06:25:00* Test Item Value Reference Range Interpretation Comments L. PNEUMOPHILA SEROGP 1 UR AG (GAL) (test code = 11 56) Negative - see comment Negative for L. pneu mophila serogroup 1 antigen, suggesting no recent or current infection with this serogroup. Legionellosis cannot be ruled out since other serogroups and species may cause disease. STREP PNEUMONIAE [id number] 06:23:00* Test Item Value Reference Range Interpretation Comments STREP PNEUMONIAE ANTIGEN (BEAKER) (test code = 1615) P resumptive negative for pneumococcal pneumonia - see comment Presumptive negative for pneumococcal pneumonia - see commen Presumptive negative for pneumococcal pneumonia, suggesting no current or recent pneumococcal infection. Infection due to S. pneumoniae cannot be ruled out since the antigen present in the sample may be below the detection limit of the test. BASIC METABOLIC [id number] 03:12:00* Test Item Value Reference Range Interpretation [...] DIALYSIS PATIENTS. CBC W/PLT COUNT & AUTO [id number] 02:56:00* Test Item Value Reference Range Interpretation [...] code = 2801) 1 % 0-1 POCT-GLUCOSE [id number] 21:56:00* Test Item Value Reference Range Interpretation Comments POC-GLUCOSE METER (BEAKER) (test code = 1538) 89 mg/dL 70-110 TESTED AT [address] [address] POCT-GLUCOSE [id number] 18:36:00* Test Item Value Reference Range Interpretation Comments POC-GLUCOSE METER (BEAKER) (test code = 1538) 302 mg/dL 70-110 H Notified FAITH IGNACIO/TESTED AT [address] [address] POCT-GLUCOSE [id number] 15:37:00* Test Item Value Reference Range Interpretation Comments POC-GLUCOSE METER (BEAKER) (test code = 1538) 111 mg/dL 70-110 H TESTED AT [address] [address] POCT-GLUCOSE [id number] 13:10:00* Test Item Value Reference Range Interpretation Comments POC-GLUCOSE METER (BEAKER) (test code = 1538) 123 mg/dL 70-110 H TESTED AT [address] [address] POCT-GLUCOSE [id number] 11:24:00* Test Item Value Reference Range Interpretation Comments POC-GLUCOSE METER (BEAKER) (test code = 1538) 270 mg/dL 70-110 H TESTED AT [address] [address] POCT-GLUCOSE [id number] 08:58:00* Test Item Value Reference Range Interpretation Comments POC-GLUCOSE METER (BEAKER) (test code = 1538) 282 mg/dL 70-110 H TESTED AT [address] [address] URINALYSIS W/ [id number] 04:48:00* Test Item Value Reference Range Interpretation [...] /HPF SOURCE(BEAKER) (test code = 2795) POCT-GLUCOSE [id number] 04:25:00* Test Item Value Reference Range Interpretation Comments POC-GLUCOSE METER (BEAKER) (test code = 1538) 295 mg/dL 70-110 H TESTED AT [facility] [address] [facility] [address] LACTIC ACID, VENOUS, WHOLE [id number] 03:15:00* Test Item Value Reference Range Interpretation Comments LACTATE BLOOD VENOUS (2) (BEAKER) (test code = 2872) 1.4 mmol/L 0 .5-2.2 CT, CHEST WITH IV CONTRAST- PE TEST [id number] 03:03:00FINAL REPORT EXAMINATION: CHEST CT / PE [...] is less likely. Follow up with a mortgage clerk recommended. Consider imaging surveillance after appropriate medical [...] discussed with Dr. Hernandez 0240 hour s. call out operator infection control nurse (Fabio) also notified at 0300 hours. Signed: Fabio Mills MDReport Verified Date/Time: 06/01/2018 03:03:58 Reading Location: [address] Reading Room C METABOLIC [id number] 01:24:00* Test Item Value Reference Range Interpretation [...] FOR DIALYSIS PATIENTS. LACTIC ACID, VENOUS, WHOLE [id number] 01:22:00* Test Item Value Reference Range Interpretation Comments LACTATE BLOOD VENOUS (2) (BEAKER) (test code = 2872) 1.7 mmol/L 0 .5-2.2 RAPID TROPONIN [id number] 01:22:00* Test Item Value Reference Range Interpretation Comments RAPID TROPONIN I (BEAKER) (test code = 1483) < ng/mL <0.05 CBC W/PLT COUNT & AUTO [id number] 01:11:00* Test Item Value Reference Range Interpretation [...] K/ L 0. 00-0.20 RAPID INFLUENZA A&B [id number] 00:59:00* Test Item Value Reference Range Interpretation Comments RAPID INFLUENZA A AG (BEAKER) (test code = 1622) Negative Negative, Inconclusive RAPID INFLUENZA B AG (BEAKER) (test code = 1623) Negative Negative, Inconclusive RAD, CHEST, 2 [id number] 00:53:00Reason for exam:->COUGHReason for exam:-> GENERALIZED BODY [...] No acute intrathoracic abnormality. Signed: Kacey Alexis MDReport Verified Date/Time: 06/01/2018 00:53:22 Reading Location: [facility] C013 Neuro Reading Room D STREP A [id number] 00:49:00* Test Item Value Reference Range Interpretation Comments STREP A ANTIGEN (BEAKER) (test code = 556) Negative Negative RAD, FOOT, MIN 3 VIEWS, [id number] 13:00:00Reason for exam:->FOOT PAINIs the patient ?->NoShould this be performed at the bedside?->NoFINAL REPORT Three views right foot Discussion: There is what is presumably a traumatic probably subacute fracture involving the proximal metaphysis of the third toe proximal phalanx. No significant angulation or disp lacement. Remaining bones and soft tissues are unremarkable. Signed: Shelton Galicia Verified Date/Time: 02/04/2018 13:00:28 Reading Location: [facility] Reading Room D [id number] 00:00:00* Test Item Value Reference Range Interpretation Comments CULTURE (BEAKER) (test code = 1095) No growth in 5 days BLOOD [id number] 00:00:00* Test Item Value Reference Range Interpretation Comments CULTURE (BEAKER) (test code = 1095) No growth in 5 days POCT-GLUCOSE [id number] 08:26:00* Test Item Value Reference Range Interpretation Comments POC-GLUCOSE METER (BEAKER) (test code = 1538) 351 mg/dL 70-110 H TESTED AT [address] [address] BASIC METABOLIC [id number] 07:30:00* Test Item Value Reference Range Interpretation [...] DIALYSIS PATIENTS. CBC W/PLT COUNT & AUTO [id number] 06:28:00* Test Item Value Reference Range Interpretation [...] code = 2801) 1 % 0-1 POCT-GLUCOSE [id number] 20:31:00* Test Item Value Reference Range Interpretation Comments POC-GLUCOSE METER (BEAKER) (test code = 1538) 342 mg/dL 70-110 H TESTED AT [place] [id number] [facility] [address] VANCOMYCIN LEVEL, [id number] 20:15:00* Test Item Value Reference Range Interpretation Comments VANCOMYCIN TROUGH (BEAKER) (test code = 522) 22.0 ug/mL 10.0-20.0 H POCT-GLUCOSE [id number] 17:13:00* Test Item Value Reference Range Interpretation Comments POC-GLUCOSE METER (BEAKER) (test code = 1538) 321 mg/dL 70-110 H TESTED AT [place] [id number] [facility] [address] POCT-GLUCOSE [id number] 12:06:00* Test Item Value Reference Range Interpretation Comments POC-GLUCOSE METER (BEAKER) (test code = 1538) 280 mg/dL 70-110 H TESTED AT [address] [address] RAD, FOOT, 2 VIEWS, [id number] 11:01:00Reason for exam:->foot infection, non healing surgical [...] MDReport Verified Date/Time: 12/11/2017 11:01:46 Reading Location: [facility] Radiology Reading Room GLOBIN [id number] 08:08:00* Test Item Value Reference Range Interpretation Comments HEMOGLOBIN A1C (BEAKER) (test code = 368) 12.3 % 4.3-6.1 H POCT-GLUCOSE [id number] 07:51:00* Test Item Value Reference Range Interpretation Comments POC-GLUCOSE METER (BEAKER) (test code = 1538) 313 mg/dL 70-110 H TESTED AT [place] [address] LIPID [id number] 07:16:00* Test Item Value Reference Range Interpretation [...] Very High >=190 Specimen slightly lipemicBASIC METABOLIC [id number] 07:13:00* Test Item Value Reference Range Interpretation [...] GFR IS NOT APPLICABLE FOR DIALYSIS PATIENTS. PT/[id number] 07:01:00* Test Item Value Reference Range Interpretation [...] mechanical heart valves.CBC W/PLT COUNT & AUTO [id number] 06:52:00* Test Item Value Reference Range Interpretation [...] = 2801) 1 % 0-1 BASIC METABOLIC [id number] 20:45:00* Test Item Value Reference Range Interpretation [...] FOR DIALYSIS PATIENTS. LACTIC ACID, VENOUS, WHOLE [id number] 20:41:00* Test Item Value Reference Range Interpretation Comments LACTATE BLOOD VENOUS (2) (BEAKER) (test code = 2872) 2.1 mmol/L 0 .5-2.2 Specimen markedly hemolyzed Effective 09/20/2015: Units/Reference Range ChangeNew: 0.5-2.2 mmol/L Previous: 5 -20 mg/dLSpecimen slightly lipemicCBC W/PLT COUNT & AUTO [id number] 20:29:00* Test Item Value Reference Range Interpretation [...] code = 2801) 0 % 0-1 POCT-GLUCOSE [id number] 19:13:00* Test Item Value Reference Range Interpretation Comments POC-GLUCOSE METER (BEAKER) (test code = 1538) 196 mg/dL 70-110 H TESTED AT [address] [address] BLOOD [id number] 06:00:00* Test Item Value Reference Range Interpretation Comments CULTURE (BEAKER) (test code = 1095) No growth in 5 days BLOOD [id number] 06:00:00* Test Item Value Reference Range Interpretation Comments CULTURE (BEAKER) (test code = 1095) No growth in 5 days VANCOMYCIN LEVEL, [id number] 08:27:00* Test Item Value Reference Range Interpretation Comments VANCOMYCIN TROUGH (BEAKER) (test code = 522) 19.1 ug/mL 10.0-20.0 POCT-GLUCOSE [id number] 08:07:00* Test Item Value Reference Range Interpretation Comments POC-GLUCOSE METER (BEAKER) (test code = 1538) 292 mg/dL 70-110 H TESTED AT [address] [address] BASIC METABOLIC [id number] 07:09:00* Test Item Value Reference Range Interpretation [...] DIALYSIS PATIENTS. CBC W/PLT COUNT & AUTO [id number] 06:39:00* Test Item Value Reference Range Interpretation [...] code = 2801) 0 % 0-1 POCT-GLUCOSE [id number] 21:34:00* Test Item Value Reference Range Interpretation Comments POC-GLUCOSE METER (BEAKER) (test code = 1538) 273 mg/dL 70-110 H TESTED AT [address] [address] POCT-GLUCOSE [id number] 17:06:00* Test Item Value Reference Range Interpretation Comments POC-GLUCOSE METER (BEAKER) (test code = 1538) 208 mg/dL 70-110 H TESTED AT [address] [address] POCT-GLUCOSE [id number] 12:37:00* Test Item Value Reference Range Interpretation Comments POC-GLUCOSE METER (BEAKER) (test code = 1538) 305 mg/dL 70-110 H Notified FAITH IGNACIO/TESTED AT [address] [address] POCT-GLUCOSE [id number] 09:32:00* Test Item Value Reference Range Interpretation Comments POC-GLUCOSE METER (BEAKER) (test code = 1538) 306 mg/dL 70-110 H Notified FAITH IGNACIO/TESTED AT [facility] [address] [facility] [address] VANCOMYCIN LEVEL, [id number] 04:36:00* Test Item Value Reference Range Interpretation Comments VANCOMYCIN TROUGH (BEAKER) (test code = 522) 14.0 ug/mL 10.0-20.0 POCT-GLUCOSE [id number] 21:02:00* Test Item Value Reference Range Interpretation Comments POC-GLUCOSE METER (BEAKER) (test code = 1538) 255 mg/dL 70-110 H TESTED AT [facility] [address] [facility] [address] C-REACTIVE [id number] 18:56:00* Test Item Value Reference Range Interpretation Comments C-REACTIVE PROTEIN (BEAKER) (test code = 676) 1.54 mg/dL 0.00-0.5 0 H CBC W/PLT COUNT & AUTO [id number] 17:59:00* Test Item Value Reference Range Interpretation [...] 417) 0.10 10e3/i? L 0.00-0.20 BASIC METABOLIC [id number] 17:59:00* Test Item Value Reference Range Interpretation [...] DIALYSIS PATIENTS. RAD, FOOT, MIN 3 VIEWS, [id number] 17:45:00Reason for exam:->TOE PAINIs the patient ?->NoShould [...] Munoz Verified Date/Time: 10/30/2017 17:45:28 Reading Location: [address] Consult Reading Room Electronically signed by: MADELIN MUNOZ M.D. on 2017 05:45 PM POCT-GLUCOSE [id number] 09:29:00* Test Item Value Reference Range Interpretation Comments POC-GLUCOSE METER (BEAKER) (test code = 1538) 438 mg/dL 70-110 HH TESTED AT [address] [address] POCT-GLUCOSE [id number] 08:24:00* Test Item Value Reference Range Interpretation Comments POC-GLUCOSE METER (BEAKER) (test code = 1538) 432 mg/dL 70-110 HH Notified FAITH IGNACIO/TESTED AT [address] [address] Bedside [id number] 12:12:00* Test Item Value Reference Range Interpretation Comments Bedside Glucose (test code = 41556-6) 171 70-120 H Meter ID: [id number] [facility] 2017-08-31 10:26:00* Test Item Value Reference Range Interpretation Comments Sodium Level (test code = 2951-2) 137 136-145 [facility] HospitalPotassium [id number] 10:26:00* Test Item Value Reference Range Interpretation Comments Potassium Level (test code = 2823-3) 3.8 3.5-5.1 [facility] HospitalChloride [id number] 10:26:00* Test Item Value Reference Range Interpretation Comments Chloride Level (test code = 2075-0) 104 98-107 [facility] HospitalCarbon Dioxide [id number] 10:26:00* Test Item Value Reference Range Interpretation Comments Carbon Dioxide Level (test code = 2028-9) 24 22-29 [facility] HospitalAnion [id number] 10:26:00* Test Item Value Reference Range Interpretation Comments Anion Gap (test code = 14120-6) 12.8 8-16 [facility] HospitalBlood Urea [id number] 10:26:00* Test Item Value Reference Range Interpretation Comments Blood Urea Nitrogen (test code = 3094-0) 13 7-26 [facility] HospitalCreatinine2018-04-15 10:26:00* Test Item Value Reference Range Interpretation Comments Creatinine (test code = 2160-0) 1.11 0.57-1.11 [facility] HospitalBUN/Creatinine [id number] 10:26:00* Test Item Value Reference Range Interpretation Comments BUN/Creatinine Ratio (test code = 3097-3) 12 - [facility] HospitalEstimat Glomerular Filtration Rate 2017-08-31 10:26:00* Test Item Value Reference Range Interpretation Comments Estimat Glomerular Filtration Rate (test code = 42161-8) 51 >60 L Ranges were taken from the National Kidney Disease Education Program and the [facility] [employer] literature.Reference ranges:60 or greater: Kumwab77-03 ( for 3 consecutive months): Chronic kidney disease 15 or less: Kidney failureResolute Health HospitalGlucose [id number] 10:26:00* Test Item Value Reference Range Interpretation Comments Glucose Level (test code = SCG7930) 157 74-118 H [facility] HospitalCalcium Fgrix4783-57-81 10:26:00* Test Item Value Reference Range Interpretation Comments Calcium Level (test code = 63880-9) 8.9 8.4-10.2 [facility] HospitalTotal [id number] 10:26:00* Test Item Value Reference Range Interpretation Comments Total Bilirubin (test code = 1975-2) 0.3 0.2-1.2 [facility] HospitalAspartate Amino Transf (AST/SGOT) 2017-08-31 10:26:00* Test Item Value Reference Range Interpretation Comments Aspartate Amino Transf (AST/SGOT) (test code = Aspartate Amino Transf (AST/SGOT)) 17 5-34 [facility] HospitalAlanine Aminotransferase (ALT/SGPT) 2017-08-31 10:26:00* Test Item Value Reference Range Interpretation Comments Alanine Aminotransferase (ALT/SGPT) (test code = 1742-6) 38 0-55 [facility] HospitalTotal [id number] 10:26:00* Test Item Value Reference Range Interpretation Comments Total Protein (test code = 2885-2) 7.0 6.5-8.1 [facility] HospitalAlbumin2018-04-15 10:26:00* Test Item Value Reference Range Interpretation Comments Albumin (test code = 1751-7) 2.7 3.5-5.0 L [facility] HospitalGlobulin2018-04-15 10:26:00* Test Item Value Reference Range Interpretation Comments Globulin (test code = 27296-4) 4.3 2.3-3.5 H [facility] HospitalAlbumin/Globulin [id number] 10:26:00 * Test Item Value Reference Range Interpretation Comments Albumin/Globulin Ratio (test code = 1759-0) 0.6 0.8-2.0 L [facility] HospitalAlkaline Jssaomefrpv9357-54-00 10:26:00* Test Item Value Reference Range Interpretation Comments Alkaline Phosphatase (test code = 6768-6) 96 40-150 [facility] HospitalB-Type Natriuretic [id number] 10:26:00* Test Item Value Reference Range Interpretation Comments B-Type Natriuretic Peptide (test code = 46847-9) 159.0 0-100 H [facility] HospitalMagnesium Pxgkf0961-31-77 08:22:00* Test Item Value Reference Range Interpretation Comments Magnesium Level (test code = 43416-5) 1.5 1.3-2.1 [facility] HospitalWhite Blood Nhkye7612-85-26 08:06:00* Test Item Value Reference Range Interpretation Comments White Blood Count (test code = 6690-2) 12.94 4.8-10.8 H [facility] HospitalRed Blood Obtjf0198-39-62 08:06:00* Test Item Value Reference Range Interpretation Comments Red Blood Count (test code = 789-8) 3.29 3.6-5.1 L [facility] HospitalHemoglobin2018-04-15 08:06:00* Test Item Value Reference Range Interpretation Comments Hemoglobin (test code = 46651-0) 8.9 12.0-16.0 L [facility] HospitalHematocrit2018-04-15 08:06:00* Test Item Value Reference Range Interpretation Comments Hematocrit (test code = 4544-3) 27.2 34.2-44.1 L [facility] HospitalMean Corpuscular Ssrblj8085-16-49 08:06:00* Test Item Value Reference Range Interpretation Comments Mean Corpuscular Volume (test code = 787-2) 82.7 81-99 [facility] HospitalMean Corpuscular Ynjqxhxrkl5997-62-09 08:06:00* Test Item Value Reference Range Interpretation Comments Mean Corpuscular Hemoglobin (test code = 785-6) 27.1 28-32 L [facility] HospitalMean Corpuscular Hemoglobin Concent 2017-08-31 08:06:00* Test Item Value Reference Range Interpretation Comments Mean Corpuscular Hemoglobin Concent (test code = 786-4) 32.7 31-35 [facility] HospitalRed Cell Distribution Yyncr2704-41-03 08:06:00* Test Item Value Reference Range Interpretation Comments Red Cell Distribution Width (test code = 10113-0) 13.6 11.7 -14.4 [facility] HospitalPlatelet Dbzyh8476-60-97 08:06:00* Test Item Value Reference Range Interpretation Comments Platelet Count (test code = 777-3) 437 140-360 H [facility] HospitalNeutrophils (%) (Auto)2017-08-31 08:06:00 * Test Item Value Reference Range Interpretation Comments Neutrophils (%) (Auto) (test code = 91055-9) 56.6 38.7-80.0 [facility] HospitalLymphocytes (%) (Auto)2017-08-31 08:06:00 * Test Item Value Reference Range Interpretation Comments Lymphocytes (%) (Auto) (test code = 736-9) 31.5 18.0-39.1 [facility] HospitalMonocytes (%) (Auto)2017-08-31 08:06:00* Test Item Value Reference Range Interpretation Comments Monocytes (%) (Auto) (test code = 5905-5) 9.0 4.4-11.3 [facility] HospitalEosinophils (%) (Auto)2017-08-31 08:06:00 * Test Item Value Reference Range Interpretation Comments Eosinophils (%) (Auto) (test code = 713-8) 1.8 0.0-6.0 [facility] HospitalBasophils (%) (Auto)2017-08-31 08:06:00* Test Item Value Reference Range Interpretation Comments Basophils (%) (Auto) (test code = 706-2) 0.5 0.0-1.0 [facility] HospitalIM GRANULOCYTES %2017-08-31 08:06:00* Test Item Value Reference Range Interpretation Comments IM GRANULOCYTES % (test code = IM GRANULOCYTES %) 0.6 0.0- 1.0 [facility] HospitalNeutrophils # (Auto)2017-08-31 08:06:00* Test Item Value Reference Range Interpretation Comments Neutrophils # (Auto) (test code = 751-8) 7.3 2.1-6.9 H [facility] HospitalLymphocytes # (Auto)2017-08-31 08:06:00* Test Item Value Reference Range Interpretation Comments Lymphocytes # (Auto) (test code = 79965-6) 4.1 1.0-3.2 H [facility] HospitalMonocytes # (Auto)2017-08-31 08:06:00* Test Item Value Reference Range Interpretation Comments Monocytes # (Auto) (test code = 742-7) 1.2 0.2-0.8 H [facility] HospitalEosinophils # (Auto)2017-08-31 08:06:00* Test Item Value Reference Range Interpretation Comments Eosinophils # (Auto) (test code = 711-2) 0.2 0.0-0.4 [facility] HospitalBasophils # (Auto)2017-08-31 08:06:00* Test Item Value Reference Range Interpretation Comments Basophils # (Auto) (test code = 704-7) 0.1 0.0-0.1 [facility] HospitalAbsolute Immature Granulocyte (auto 2017-08-31 08:06:00* Test Item Value Reference Range Interpretation Comments Absolute Immature Granulocyte (auto (gretchen t code = Absolute Immature Granulocyte (auto) 0.08 0-0.1 [facility] HospitalC-Reactive Nkjbagq2926-67-21 13:22:00* Test Item Value Reference Range Interpretation Comments C-Reactive Protein (test code = 1988-5) 58.7 0.0-4.9 H Performed at: - [facility] [id number] Director: Manjeet Pritchard MD, Phone: [phone] Health HospitalDifferential Total Cells Bfiwssl9079-68-23 07:39:00* Test Item Value Reference Range Interpretation Comments Differential Total Cells Counted (test code = Differkenna tial Total Cells Counted) 100 [facility] HospitalNeutrophils % (Manual)2017-08-29 07:39:00 * Test Item Value Reference Range Interpretation Comments Neutrophils % (Manual) (test code = 52154-3) 64 40-74 [facility] HospitalBand Neutrophils %2017-08-29 07:39:00* Test Item Value Reference Range Interpretation Comments Band Neutrophils % (test code = 764-1) 1 [facility] HospitalLymphocytes % (Manual)2017-08-29 07:39:00 * Test Item Value Reference Range Interpretation Comments Lymphocytes % (Manual) (test code = 737-7) 23 19-48 [facility] HospitalMonocytes % (Manual)2017-08-29 07:39:00* Test Item Value Reference Range Interpretation Comments Monocytes % (Manual) (test code = 744-3) 10 3.4-9.0 H [facility] HospitalEosinophils % (Manual)2017-08-29 07:39:00 * Test Item Value Reference Range Interpretation Comments Eosinophils % (Manual) (test code = 714-6) 2 0-7 [facility] HospitalPlatelet Bjrxsirc6731-32-55 07:39:00* Test Item Value Reference Range Interpretation Comments Platelet Estimate (test code = 06542-9) ADEQUATE [facility] HospitalPlatelet Morphology Rwebdrp7352-17-34 07:39:00* Test Item Value Reference Range Interpretation Comments Platelet Morphology Comment (test code = 53085-9) NORMAL [facility] HospitalRed Cell Morphology Kqvlmje9835-96-55 07:39:00* Test Item Value Reference Range Interpretation Comments Red Cell Morphology Comment (test code = 6742-1) NORMAL [facility] HospitalReactive Cxmowkiocvc5816-77-92 08:45:00* Test Item Value Reference Range Interpretation Comments Reactive Lymphocytes (test code = 67758-3) 3 [facility] HospitalHypochromasia2018-04-12 08:45:00* Test Item Value Reference Range Interpretation Comments Hypochromasia (test code = 728-6) SLIGHT [facility] HospitalPoikilocytosis2018-04-12 08:45:00* Test Item Value Reference Range Interpretation Comments Poikilocytosis (test code = 779-9) SLIGHT [facility] HospitalAnisocytosis2018-04-12 08:45:00* Test Item Value Reference Range Interpretation Comments Anisocytosis (test code = 702-1) SLIGHT [facility] HospitalMacrocytosis2018-04-12 08:45:00* Test Item Value Reference Range Interpretation Comments Macrocytosis (test code = 738-5) MODERATE [facility] HospitalThyroid Stimulating Hormone (TSH) 2017-08-28 07:44:00* Test Item Value Reference Range Interpretation Comments Thyroid Stimulating Hormone (TSH) (test code = 70261-2) 1.031 0.350-4.940 [facility] HospitalActivated Partial Thromboplast Time 2017-08-28 07:21:00* Test Item Value Reference Range Interpretation Comments Activated Partial Thromboplast Time (test code = 34472-3) 56.8 23.8-35.5 H [facility] HospitalTriglycerides Wskkd4669-43-59 07:10:00* Test Item Value Reference Range Interpretation Comments Triglycerides Level (test code = 2571-8) 53 0-149 [facility] HospitalCholesterol Ysouw2496-83-98 07:10:00* Test Item Value Reference Range Interpretation Comments Cholesterol Level (test code = 2093-3) 108 0-199 Less than 200 mg/dL Low Mkgp491 - 239 mg/dL Borderline Bosj488 m g/dl and greater High Risk [facility] HospitalLDL Dvkoyekzsor3356-65-26 07:10:00* Test Item Value Reference Range Interpretation Comments LDL Cholesterol (test code = 2089-1) 54 60-130 L [facility] HospitalHDL Eligqlkhenj6811-35-46 07:10:00* Test Item Value Reference Range Interpretation Comments HDL Cholesterol (test code = 2085-9) 43 40-60 [facility] HospitalCholesterol/HDL Zuxer6917-44-16 07:10:00 * Test Item Value Reference Range Interpretation Comments Cholesterol/HDL Ratio (test code = 9830-1) 2.5 3.0-3.6 L [facility] HospitalPhosphorus Epfpg2755-66-42 07:55:00* Test Item Value Reference Range Interpretation Comments Phosphorus Level (test code = IEC0697) 4.4 2.3-4.7 [facility] HospitalCreatine Kinase YI8821-97-90 01:16:00* Test Item Value Reference Range Interpretation Comments Creatine Kinase MB (test code = 54170-8) 1.40 0-5.0 [facility] HospitalTroponin [id number] 01:16:00* Test Item Value Reference Range Interpretation Comments Troponin I (test code = KDA3785) 0.124 0-0.300 [facility] HospitalCreatine Itbnyk7314-06-73 00:59:00* Test Item Value Reference Range Interpretation Comments Creatine Kinase (test code = 2157-6) 78 29-168 [facility] HospitalProthrombin Ybft3220-22-80 21:43:00* Test Item Value Reference Range Interpretation Comments Prothrombin Time (test code = 5902-2) 13.4 11.9-14.5 [facility] HospitalProthromb Time International Ratio 2017-08-26 21:43:00* Test Item Value Reference Range Interpretation Comments Prothromb Time International Ratio (test code = 6301-6) 1.10 Oral Anticoagulant Therapy INR Values:1. Low Intensity Therapy 1.5 - 2.02 . Moderate Intensity Therapy 2.0 - 3.03. High Intensity Therapy(1) 2.5 - 3. 54. High Intensity Therapy(2) 3.0 - 4.05. Panic Value INR > 5.0 [facility]/DVT)2017-08-26 21:43:00* Test Item Value Reference Range Interpretation Comments D-Dimer Quantitative (PE/DVT) (test code = 34714-9) 2.21 0. 00-0.45 H As with all in vitro diagnostic tests, the test results should be interpreted by the physician in conjunction with clinical findings and other test results.Test results are reported in NEW D-dimer units(ug/mLFEU).[facility] Hospital[facility] [id number] 21:00:00* Test Item Value Reference Range Interpretation Comments Arterial Blood pH (test code = 2744-1) 7.44 7.31-7.41 H [facility] Partial Pressure CO2 2017-08-26 21:00:00* Test Item Value Reference Range Interpretation Comments Arterial Blood Partial Pressure CO2 (test code = 2018-12) 27 41-51 L [facility] Pressure O2 2017-08-26 21:00:00* Test Item Value Reference Range Interpretation Comments Arterial Blood Partial Pressure O2 (test code = 2018-12) 48 80-105 LL Results called/hand delivered to DR. PRITCHARD at 2058 on 08/26/17 by PAZ CHAVEZ.[facility] [id number] 21:00:00* Test Item Value Reference Range Interpretation Comments Arterial Blood HCO3 (test code = 1960-4) 19 23-28 L [facility] Base [id number] 21:00:00* Test Item Value Reference Range Interpretation Comments Arterial Blood Base Excess (test code = 1925-7) -6.0 -2-3 L [facility] Oxygen Saturation 2017-08-26 21:00:00* Test Item Value Reference Range Interpretation Comments Arterial Blood Oxygen Saturation (test code = 2708-6) 86.0 95-98 L [facility] HospitalFiO22018-04-10 21:00:00* Test Item Value Reference Range Interpretation Comments FiO2 (test code = FiO2) 21 [facility] HospitalVancom[facility] Level [id number] 08:49:00* Test Item Value Reference Range Interpretation Comments Vancomycin Level Trough (test code = 4092-3) 9.3 5.0-10.0 [facility] HospitalErythrocyte Sedimentation [id number] 07:54:00* Test Item Value Reference Range Interpretation Comments Erythrocyte Sedimentation Rate (test code = 4537-7) 52 0- 20 H [facility] HospitalHemoglobin A1c [id number] 07:35:00 * Test Item Value Reference Range Interpretation Comments Hemoglobin A1c Percent (test code = Hemoglobin A1c Percent) 11.9 4.0-7.0 H [facility] HospitalPOCT-GLUCOSE [id number] 12:10:00* Test Item Value Reference Range Interpretation Comments POC-GLUCOSE METER (BEAKER) (test code = 1538) 133 mg/dL 70-110 H TESTED AT [facility] [address] [facility] [address] HEMOGLOBIN [id number] 08:17:00* Test Item Value Reference Range Interpretation Comments HEMOGLOBIN A1C (BEAKER) (test code = 368) 13.3 % 4.3-6.1 H POCT-GLUCOSE [id number] 07:33:00* Test Item Value Reference Range Interpretation Comments POC-GLUCOSE METER (BEAKER) (test code = 1538) 268 mg/dL 70-110 H TESTED AT [facility] [address] [facility] [address] B-TYPE NATRIURETIC FACTOR (BNP)2016-07-28 06:03:00* Test Item Value Reference Range Interpretation Comments B-TYPE NATRIURETIC PEPTIDE (BEAKER) (test code = 700) 57 pg/mL 0-100 POCT-GLUCOSE [id number] 01:17:00* Test Item Value Reference Range Interpretation Comments POC-GLUCOSE METER (BEAKER) (test code = 1538) 270 mg/dL 70-110 H TESTED AT [facility] [address] [facility] [address] POCT-GLUCOSE [id number] 20:33:00* Test Item Value Reference Range Interpretation Comments POC-GLUCOSE METER (BEAKER) (test code = 1538) 312 mg/dL 70-110 H TESTED AT [facility] [address] [facility] [address] POCT-GLUCOSE [id number] 17:44:00* Test Item Value Reference Range Interpretation Comments POC-GLUCOSE METER (BEAKER) (test code = 1538) 376 mg/dL 70-110 H TESTED AT [place] [address] [facility] [address] KETONE, [id number] 16:40:00* Test Item Value Reference Range Interpretation Comments KETONES, BLOOD (BEAKER) (test code = 1103) 0.1 mmol/L <0.4 BASIC METABOLIC [id number] 16:11:00* Test Item Value Reference Range Interpretation [...] GFR IS NOT APPLICABLE FOR DIALYSIS PATIENTS. PT/[id number] 16:09:00* Test Item Value Reference Range Interpretation [...] for pat ients with mechanical heart valves.RAPID [id number] 16:02:00* Test Item Value Reference Range Interpretation Comments RAPID CKMB (BEAKER) (test code = 1482) 3.4 ng/mL 0.0-4.3 RAPID TROPONIN [id number] 16:02:00* Test Item Value Reference Range Interpretation Comments RAPID TROPONIN I (BEAKER) (test code = 1483) < ng/mL <0.05 CBC W/PLT COUNT & AUTO [id number] 15:58:00* Test Item Value Reference Range Interpretation [...] 10e3/ L 0. 00-0.20 CHEST SINGLE (PORTABLE) [place] [address] Patient Name: ANDREA HOOVER MR #: [id number] : 1960 Age/Sex: 57/F Req #: [id number] Adm Physician: AMINAH ROBBINS MD Ordered by: AMINAH ORBBINS MD Report #: [id number] Location: MED/SURG3 Room/Bed: [facility] Procedure: [id number] DX /CHEST SINGLE (PORTABLE) Exam Date: Exam [...] Signed by: DR. Arsalan Watson MD on 08/30/2017 6:12 PM Dictated By: ARSALAN WATSON MD 11 Transcribed By: RUCHI on 08/30/171811 COPY TO: AMINAH ROBBINS MD MRI FOOT LEFT WO [place] [address] Patient Name: ANDREA HOOVER MR #: [id number] : 1960 Age/Sex: 57/F Req #: [id number] Adm Physician: AMINAH ROBBINS MD Ordered by: YOEL HUGGINS MD Report #: [id number] Location: MED/SURG3 Room/Bed: [facility] Procedure: [id number] MRI /MRI FOOT LEFT WO Exam Date: [...] HUGGINS MD VQ LUNG SCAN VENT PERFUSION [place] [address] Patient Name: ANDREA HOOVER MR #: [id number] : 1960 Age/Sex: 57/F Req #: [id number] Adm Physician: AMINAH ROBBINS MD Ordered by: CRICKET KILGORE MD Report #: [id number] Location: MED/SURG3 Room/Bed: [facility] Procedure: [id number] NM/VQ LUNG SCAN VENT PERFUSION Exam Date: [...] COPY TO: CRICKET KILGORE MD ABDOMEN-1VIEW (KUB) [place] [address] Patient Name: ANDREA HOOVER MR #: [id number] : 1960 Age/Sex: 57/F Req #: [id number] Adm Physician: AMINAH ROBBINS MD Ordered by: AMINAH ROBBINS MD Report #: [id number] Location: [facility] Room/Bed: [facility] Procedure: [id number] DX /ABDOMEN-1VIEW (KUB) Exam Date: 08/27/17 Exam [...] at 15:35 Dictated By: ARSALAN WATSON MD 34 Transcribed By: BONG HENRIQUEZ on 08/27/171534 COPY TO: AMINAH ROBBINS MD CHEST SINGLE (PORTABLE) [place] [address] Patient Name: ANDREA HOOVER MR #: [id number] : 1960 Age/Sex: 57/F Req #: [id number] Adm Physician: AMINAH ROBBINS MD Ordered by: NO AL MD Report #: [id number] Location: MED/SURG3 Room/Bed: [facility] Procedure: [id number] DX/CHEST SINGLE (PORTABLE) Exam Date: Exam Time: [...] TO: NO AL MD CT BRAIN WO [facility] [address] [place] [address] Patient Name: ANDREA HOOVER MR #: [id number] : 1960 Age/Sex: 57/F Req #: [id number] Adm Physician: AMINAH ROBBINS MD Ordered by: NO AL MD Report #: [id number] Loca tion: MED/SURG3 Room/Bed: [facility] Procedure: [id number] CT/CT BRAIN WO Exam Date: Exam Time: [...] PM Dictated By: EFRAIN FRANCIS MD 32 COPY TO: NO SHARPE MD FOOT LEFT COMPLETE [place] [address] Patient Name: ANDERA HOOVER MR #: [id number] : 1960 Age/Sex: 57/F Req #: [id number] Adm Physician: AMINAH ROBBINS MD Ordered by: JOSH PRATER DPM Report #: [id number] Location: MED/SURG3 Room/Bed: [facility] Procedure: [id number] DX/F OOT LEFT COMPLETE Exam Date: 08/22/17 Exam Time: 091 0 REPORT STATUS: Signed PROCEDURE: FOOT LEFT COMPLETE TECHNIQUE: AP, lateral and oblique views left foot INDICATION: Great toe swelling COM PARISON: [facility], DX, FOOT LEFT COMPLETE, 08/19/2017, 21:01. FINDINGS: The left foot is intact and in anatomic alignment. Soft tissue swelling is decreased relative to August 19. No acute focal erosion or perios teal [...] TO: JOSH PRATER DPM FOOT LEFT COMPLETE [facility] [address] [place] [address] Patient Name: ANDREA HOOVER MR #: [id number] : 1960 Age/Sex: 57/F Req #: [id number] Adm Physician: KAYA VAN MD Ordered by: CRICKET KILGORE MD Report #: [id number] Location: [facility] Room/Bed: [place] [address] Procedure: [id number] DX/ FOOT LEFT COMPLETE Exam Date: 08/19/17 [...] nonradiopaque foreign body could be a consideration, however, this may be secondary to focal infection, [...] TO: CRICKET KILGORE MD CHEST SINGLE (PORTABLE) [place] [address] Patient Name: ANDREA HOOVER MR #: [id number] : 1960 Age/Sex: 57/F Req #: [id number] Adm Physician: Ordered by: CRICKET KILGORE MD Report #: [id number] Location: ER Room/Bed: Procedure: [id number] DX/CHEST SINGLE (PORTABLE) Exam Date: Exam Time: [...]
[2020-02-17] MEDS: ONDANSETRON HCL INJ 2MG/ML 2ML 2 MG/ML VIAL IV NR ×2 (18:54→18:55)
--- NOTE | 2020-02-17 18:55 | NUR ---
Pt noted to be hypotensive, 1 liter NS bolus initiated. Reports she has to have phenergan for nausea, nothing else will work. Held zoan.
--- NOTE | 2020-02-17 19:30 | Emergency Department Note ---
History of Present Illnes History of Present Illness Chief Complaint: Abdominal Complaints History of Present Illness This is a 59 year old female resents to ED via EMS for vomiting, nausea, and abdominal pain. Pt had KUB done at Rehab on 02/15 and showed SBO vs. Ileus vs. Ascites. PT STATES SHE HAS HAD ABD PAIN WITH N/V FOR PAST THREE DAYS PT HAS A PICC TO [facility] AND IS ON IV ANTIBIOTICS FOR CHRONIC WOUND AND OSTEOMYELITIS INFECTION TO RIGHT FOOT. Historian: Patient, [facility]/EMS Arrival Mode: [facility] ems Senior Director Of Strategy Required: No Onset (how long ago): day(s) (3) Location: ABD Quality: PAIN WITH N/V Radiation: Reports non-radiation Severity: moderate Onset quality: gradual Duration (how long): day(s) (3) Timing of current episode: constant Progression: worsening Chronicity: new Context: Reports recent illness (WOUND INFECTION RIGHT FOOT); Denies recent surgery, Denies trauma/injury Relieving factors: none Exacerbating factors: none Associated symptoms: Reports denies other symptoms Treatments prior to arrival: none Past Medical/Family History Physician Review I have reviewed the patient's past medical and family history. Any updates have been documented here. 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 Social History Smoking Cessation: Never Smoker Alcohol Use: None Any Illegal Drug Use: No Physically hurt or threatened: No Family History Family history of heart diseas: No Other Last Tetanus: UNK Any Pre-Existing Lines (PICC,: Yes (RUE) Review of Systems Review of Systems Constitutional: Reports no symptoms EENTM: Reports no symptoms Cardiovascular: Reports no symptoms Respiratory: Reports no symptoms Gastrointestinal: Reports as per HPI Genitourinary: Reports no symptoms Musculoskeletal: Reports as per HPI Integumentary: Reports no symptoms Neurological: Reports no symptoms Psychological: Reports no symptoms Endocrine: Reports no symptoms Hematological/Lymphatic: Reports no symptoms Physical Exam Related Data Allergies: Coded Allergies: lisinopril (Verified Allergy, Unknown, 01/16/20) tramadol (Verified Adverse Reaction, Intermediate, VOMITING, 01/16/20) Triage Vital Signs Vital Signs Date Time Temp Pulse Resp B/P (MAP) Pulse Ox O2 Delivery O2 Flow Rate FiO2 02/17/20 18:32 98.7 84 23 90/48 97 Room Air Vital signs reviewed: Yes Physical Exam CONSTITUTIONAL Constitutional: Present well-developed, Present well-nourished; Absent distressed HENT HENT: Present normocephalic, Present atraumatic, Present oropharynx clear/moist, Present nose normal HENT L/R: Present left ext ear normal, Present right ext ear normal EYES Eyes: Reports PERRL, Reports conjunctivae normal NECK Neck: Present ROM normal PULMONARY Pulmonary: Present effort normal, Present breath sounds normal CARDIOVASCULAR Cardiovascular: Present regular rhythm, Present heart sounds normal, Present capillary refill normal, Present normal rate GASTROINTESTINAL Abdominal: Present soft, Present bowel sounds normal, Present distension (MILD), Present tender (DIFFUSE ABD TENDERNESS); Absent guarding, Absent mass GENITOURINARY Genitourinary: Present exam deferred SKIN Skin: Present warm, Present dry MUSCULOSKELETAL Musculoskeletal: Present other (PT WITH WOUNDS TO RIGHT FOOT, NO DRAINAGE, NO ERYTHEMA, ) NEUROLOGICAL Neurological: Present alert, Present oriented x 3, Present no gross motor or sensory deficits PSYCHOLOGICAL Psychological: Present mood/affect normal, Present judgement normal Results Laboratory Laboratory Laboratory Tests Test 02/17/20 20:50 02/17/20 19:56 Urine Color Yellow (YELLOW) Urine Clarity Sl cloudy (CLEAR) Urine pH 6 (5 - 7) Urine Specific Felicity >=1.030 (1.010-1.025) Urine Protein >=300 (NEGATIVE) Urine Glucose (UA) Negative (NEGATIVE) Urine Ketones Trace (NEGATIVE) Urine Blood Negative (NEGATIVE) Urine Nitrite Negative (NEGATIVE) Urine Bilirubin Small (NEGATIVE) Urine Urobilinogen 0.2 mg/dL (0.2 - 1) Urine Leukocyte Esterase Negative (NEGATIVE) Urine RBC None /HPF (0-5) Urine WBC None /HPF (0-5) Urine Epithelial Cells Many /LPF (NONE) Urine Transitional Epithelial Cells Moderate (NONE) Urine Bacteria Moderate /HPF (NONE) White Blood Count 12.06 x10e3/uL (4.8-10.8) Red Blood Count 3.19 x10e6/uL (3.6-5.1) Hemoglobin 8.6 g/dL (12.0-16.0) Hematocrit 28.1 % (34.2-44.1) Mean Corpuscular Volume 88.1 fL (81-99) Mean Corpuscular Hemoglobin 27.0 pg (28-32) Mean Corpuscular Hemoglobin Concent 30.6 g/dL (31-35) Red Cell Distribution Width 16.0 % (11.7-14.4) Platelet Count 395 x10e3/uL (140-360) Neutrophils (%) (Auto) 53.4 % (38.7-80.0) Lymphocytes (%) (Auto) 28.9 % (18.0-39.1) Monocytes (%) (Auto) 15.2 % (4.4-11.3) Eosinophils (%) (Auto) 1.7 % (0.0-6.0) Basophils (%) (Auto) 0.3 % (0.0-1.0) Neutrophils # (Auto) 6.5 (2.1-6.9) Lymphocytes # (Auto) 3.5 (1.0-3.2) Monocytes # (Auto) 1.8 (0.2-0.8) Eosinophils # (Auto) 0.2 (0.0-0.4) Basophils # (Auto) 0.0 (0.0-0.1) Absolute Immature Granulocyte (auto 0.06 x10e3/uL (0-0.1) Sodium Level 142 mmol/L (136-145) Potassium Level 4.1 mmol/L (3.5-5.1) Chloride Level 98 mmol/L (98-107) Carbon Dioxide Level 29 mmol/L (22-29) Anion Gap 19.1 mmol/L (8-16) Blood Urea Nitrogen 28 mg/dL (7-26) Creatinine 2.71 mg/dL (0.57-1.11) Estimat Glomerular Filtration Rate 22 ML/MIN (60-) BUN/Creatinine Ratio 10 (6-25) Glucose Level 184 mg/dL (74-118) Lactic Acid Level 1.9 mmol/L (0.5-2.0) Calcium Level 8.4 mg/dL (8.4-10.2) Total Bilirubin 0.3 mg/dL (0.2-1.2) Aspartate Amino Transf (AST/SGOT) 10 IU/L (5-34) Alanine Aminotransferase (ALT/SGPT) 10 IU/L (0-55) Alkaline Phosphatase 104 IU/L (40-150) Creatine Kinase 39 IU/L (29-168) Creatine Kinase MB 0.70 ng/mL (0-5.0) Troponin I 0.003 ng/mL (0-0.300) Total Protein 6.7 g/dL (6.5-8.1) Albumin 3.3 g/dL (3.5-5.0) Globulin 3.4 g/dL (2.3-3.5) Albumin/Globulin Ratio 1.0 (0.8-2.0) Amylase Level 47 U/L (25-125) Lipase 23 U/L (8-78) Lab results reviewed: Yes Imaging Imaging results reviewed: Yes Impressions Procedure: [id number] CT/CT ABDOMEN/PELVIS WO Exam Date: 02/17/20 Exam Time: 2110 REPORT STATUS: Signed EXAM: CT Abdomen and Pelvis WITHOUT contrast INDICATION: Mid abdominal pain, bowel obstruction COMPARISON: Abdominal CT 03/24/2019 TECHNIQUE: Abdomen and pelvis were scanned utilizing a multidetector helical scanner from the lung base to the pubic symphysis without administration of IV contrast. Absence of intravenous contrast decreases sensitivity for detection of focal lesions and vascular pathology. Coronal and sagittal reformations were obtained. Routine protocol was performed. IV CONTRAST: None ORAL CONTRAST: None COMPLICATIONS: None RADIATION DOSE: Total DLP: 711 mGy*cm Estimated effective dose: (DLP x 0.015 x size factor) mSv CTDIvol has been reviewed. It is below the limits set by the Radiation Protocol Committee (RPC). Dose modulation, iterative reconstruction, and/or weight based adjustment of the mA/kV was utilized to reduce the radiation dose to as low as reasonably achievable. FINDINGS: LINES and TUBES: None. LOWER THORAX: Left basilar hazy haziness, compatible with atelectasis. HEPATOBILIARY: No focal hepatic lesions. No biliary ductal dilation. GALLBLADDER: Absent. SPLEEN: No splenomegaly. PANCREAS: No focal masses or ductal dilatation. ADRENALS: No adrenal nodules KIDNEYS/URETERS: A 1.2 cm radiopaque exophytic nodule from the left renal inferior pole is likely hemorrhagic cyst. An adjacent 1 cm exophytic renal inferior pole cyst, stable since at least 03/24/2019, compatible with a benign hemorrhagic cyst, no further follow-up required. No hydronephrosis. Multiple tiny nonobstructive bilateral renal urolithiasis. GI TRACT: Small bowel anastomotic sutures in the right mid abdomen, with air and fluid filled loops of nonpathologically dilated small bowel occipital to the sutures. No small bowel loops are dilated greater than 3 cm. Liquid stool throughout the colon and rectum. Appendix is normal. PELVIC ORGANS/BLADDER: Hysterectomy. No adnexal masses. Urinary bladder unremarkable. LYMPH NODES: No lymphadenopathy. VESSELS: Vascular calcifications. PERITONEUM / RETROPERITONEUM: No free air or fluid. BONES: Degenerative changes. SOFT TISSUES: Unremarkable. IMPRESSION: 1. Mild air and fluid distention of small bowel loops proximal to small bowel anastomotic sutures in the mid abdomen, likely due to hyperperistalsis at the anastomotic site. The degree of bowel dilation is not suspicious for small bowel obstruction. Liquid stool throughout the colon and rectum as seen with diarrhea. 2. Multiple tiny nonobstructive bilateral renal urolithiasis. Signed by: Brayan Gomez DO on 02/17/2020 10:51 PM Dictated By: BRAYAN GOMEZ DO 50 Transcribed By: RUCHI on 02/17/202250 COPY TO: SHANNAN MANCIA MD~ Procedures 12 Lead ECG Interpretation ECG Interpretation : ECG: ECG 1 Senior Director Of Strategy: Interpreted by ED physician Date: Feb 17, 2020 Time: 19:40 Rhythm: sinus rhythm Rate: normal BPM: 87 QRS axis: normal ST segments normal: Yes T waves normal: Yes Other findings: no other findings Clinical Impression: normal ECG Assessment & Plan Medical Decision Making MDM PT WITH ABD PAIN N/V AND POSSIBLE SBO CBC, CMP, AMYLASE, LIPASE, UA, LACTIC ACID CT ABD/PELVIS, ORDERED TO EVAL FOR SBO., COLITIS, PANCREATITIS, ELEVATED LFT'S, UTI, SEPSIS 1 LITER NS IV ORDERED ZOFRAN 4 MG IV ORDERED Assessment & Plan Final Impression: (1) Abdominal pain (2) Nausea & vomiting (3) Dehydration Depart Disposition: DIS TO HALFWAY BED Last Vital Signs Date Time Temp Pulse Resp B/P (MAP) Pulse Ox O2 Delivery O2 Flow Rate FiO2 02/17/20 18:40 80 14 103/61 98 Room Air 02/17/20 18:32 98.7 Home Meds Active Scripts Pantoprazole Sodium (PROTONIX) 40 Mg Suspdr.pkt, 40 MG PO BID for 30 Days, #60 Prov:CLIFF SINGLETON CERAMIC ARTIST 04/01/19 Levofloxacin (LEVAQUIN) 500 Mg Tablet, 500 MG PO DAILY for 5 Days, #5 Prov:CLIFF SINGLETON CERAMIC ARTIST 04/01/19 Metronidazole (FLAGYL) 500 Mg Tablet, 500 MG PO TID for 5 Days, #15 Prov:CLIFF SINGLETON CERAMIC ARTIST 04/01/19 Reported Medications Fluticasone/Salmeterol (ADVAIR HFA 115-21 MCG INHALER) 12 Gm Hfa.aer.ad 06/16/19 Valsartan (DIOVAN) 160 Mg Tab, 320 MG PO DAILY, #60 TAB 06/16/19 Temazepam (TEMAZEPAM) 15 Mg Capsule, 7.5 06/16/19 Ropinirole Hcl (ROPINIROLE HCL) 1 Mg Tablet, 1 MG PO DAILY, #30 TAB 06/16/19 Pioglitazone Hcl (PIOGLITAZONE HCL) 45 Mg Tablet, 15 MG PO DAILY, #30 TAB 06/16/19 Omeprazole (OMEPRAZOLE) 40 Mg Capsule.dr, 20 DAILY@0600 06/16/19 Pregabalin (LYRICA) 75 Mg Cap, 200 MG TID, #30 CAP 06/16/19 Hydralazine Hcl (HYDRALAZINE HCL) 25 Mg Tab, 50 MG PO TID, TAB 06/16/19 Famotidine (FAMOTIDINE) 20 Mg Tab, 20 MG PO BID, #30 TAB 06/16/19 Duloxetine Hcl (CYMBALTA) 30 Mg Capsule.dr, 60 MG BID, #30 CAP 06/16/19 Ipratropium/Albuterol Sulfate (COMBIVENT RESPIMAT INHAL SPRAY) 4 Gm Aer.w.adap, 4 GM IH, INH 06/16/19 Baclofen (BACLOFEN) 10 Mg Tablet, 10 MG PO BID, #90 TAB 06/16/19 Vitamin B Complex & Vit C No.3 (B COMPLEX WITH VITAMIN C) 1 Each Capsule 06/16/19 Aspirin (ASPIRIN EC) 81 Mg Tablet.dr, 81 MG PO DAILY, #30 TAB 06/16/19 Insulin Aspart (NOVOLOG) 100 Units/1 Ml Inj 03/24/19 Atorvastatin Calcium (ATORVASTATIN CALCIUM) 40 Mg Tablet, 40 MG PO HS 03/24/19 Carvedilol (CARVEDILOL) 25 Mg Tablet, 25 MG PO BID 03/24/19 Torsemide (TORSEMIDE) 20 Mg Tablet, 20 MG PO DAILY 03/24/19 Trazodone Hcl (TRAZODONE HCL) 150 Mg Tablet, 150 MG PO DAILY 03/24/19 Acetaminophen/Codeine* (TYLENOL # 3*) 1 Ea Tab, 1 TAB PO TID 03/24/19 Medications in the ED Ondansetron HCl 4 mg NOW IV Last administered on 02/17/20at 18:54; Admin Dose 4 MG; Start 02/17/20 at 18:32; Stop 02/17/20 at 19:55 Sodium Chloride 1,000 ml @ 999 mls/hr Q1H1M ONCE IV Last administered on 02/17/20at 18:54; Admin Dose 999 MLS/HR; Start 02/17/20 at 18:45; Stop 02/17/20 at 19:45 SHANNAN MANCIA MD Feb 17, 2020 19:30
--- NOTE | 2020-02-17 19:42 | NUR ---
PICC to RUQ difficult to flush on one lumen, will not flush to other. No blood return noted. Noted dressing falling off PICC when assessed.
[2020-02-17 20:18] LABS: BASOPHILS % 0.3 % (0.0-1.0); EOSINOPHILS # (AUTO) 0.2 (0.0-0.4); EOSINOPHILS % 1.7 % (0.0-6.0); HEMATOCRIT 28.1 % (34.2-44.1); HEMOGLOBIN 8.6 g/dL (12.0-16.0); LYMPHOCYTES # (AUTO) 3.5 (1.0-3.2); LYMPHOCYTES % 28.9 % (18.0-39.1); MEAN CORPUSCULAR HGB CONC 30.6 g/dL (31-35); MEAN CORPUSCULAR VOLUME 88.1 fL (81-99); MONOCYTES # (AUTO) 1.8 (0.2-0.8); MONOCYTES % 15.2 % (4.4-11.3); NEUTROPHILS # (AUTO) 6.5 (2.1-6.9); NEUTROPHILS % 53.4 % (38.7-80.0); PLATELET COUNT 395 x10e3/uL (140-360); RED BLOOD COUNT 3.19 x10e6/uL (3.6-5.1)
--- NOTE | 2020-02-17 20:24 | NUR ---
Pt refused straight cath for urine specimen collection instead choose to go for bedside commode. Pt was able to transfer from bed to the commode with minimal help by at bedside. BP improved at this time.
[2020-02-17 20:34] LABS: ALBUMIN 3.3 g/dL (3.5-5.0); ANION GAP 19.1 mmol/L (8-16); CALCIUM 8.4 mg/dL (8.4-10.2); CREATININE, SERUM 2.71 mg/dL (0.57-1.11); POTASSIUM 4.1 mmol/L (3.5-5.1)
[2020-02-17 20:35] LABS: AMYLASE 47 U/L (25-125); LIPASE 23 U/L (8-78)
[2020-02-17 20:41] LABS: CREATINE KINASE MB 0.7 ng/mL (0-5.0)
[2020-02-17 21:03] LABS: CLARITY,URINE SL CLOUDY (CLEAR); COLOR,URINE YELLOW (YELLOW); LEUKOCYTE ESTERASE ,URINE NEGATIVE (NEGATIVE); NITRITE,URINE NEGATIVE (NEGATIVE)
[2020-02-17 21:04] LABS: BILIRUBIN,URINE SMALL (NEGATIVE); KETONES,URINE TRACE (NEGATIVE); PROTEIN,URINE DIPSTICK >=300 (NEGATIVE); URINE UROBILINOGEN 0.2 mg/dL (0.2 - 1)
[2020-02-17 21:13] LABS: BACTERIA,URINE MODERATE /HPF; EPITHELIAL CELLS,URINE MANY /LPF; TRANSITIONAL EPI CELLS,URINE MODERATE
[2020-02-17] MEDS ORDERED: SODIUM CHLORIDE 0.9% 1000ML 1,000 ML IV SCH (21:45)
--- NOTE | 2020-02-17 22:54 | Diagnostic Imaging Report ---
EXAM: CT Abdomen and Pelvis WITHOUT contrast INDICATION: Mid abdominal pain, bowel obstruction COMPARISON: Abdominal CT 03/24/2019 TECHNIQUE: Abdomen and pelvis were scanned utilizing a multidetector helical scanner from the lung base to the pubic symphysis without administration of IV contrast. Absence of intravenous contrast decreases sensitivity for detection of focal lesions and vascular pathology. Coronal and sagittal reformations were obtained. Routine protocol was performed. IV CONTRAST: None ORAL CONTRAST: None COMPLICATIONS: None RADIATION DOSE: Total DLP: 711 mGy*cm Estimated effective dose: (DLP x 0.015 x size factor) mSv CTDIvol has been reviewed. It is below the limits set by the Radiation Protocol Committee (RPC). Dose modulation, iterative reconstruction, and/or weight based adjustment of the mA/kV was utilized to reduce the radiation dose to as low as reasonably achievable. FINDINGS: LINES and TUBES: None. LOWER THORAX: Left basilar hazy haziness, compatible with atelectasis. HEPATOBILIARY: No focal hepatic lesions. No biliary ductal dilation. GALLBLADDER: Absent. SPLEEN: No splenomegaly. PANCREAS: No focal masses or ductal dilatation. ADRENALS: No adrenal nodules KIDNEYS/URETERS: A 1.2 cm radiopaque exophytic nodule from the left renal inferior pole is likely hemorrhagic cyst. An adjacent 1 cm exophytic renal inferior pole cyst, stable since at least 03/24/2019, compatible with a benign hemorrhagic cyst, no further follow-up required. No hydronephrosis. Multiple tiny nonobstructive bilateral renal urolithiasis. GI TRACT: Small bowel anastomotic sutures in the right mid abdomen, with air and fluid filled loops of nonpathologically dilated small bowel occipital to the sutures. No small bowel loops are dilated greater than 3 cm. Liquid stool throughout the colon and rectum. Appendix is normal. PELVIC ORGANS/BLADDER: Hysterectomy. No adnexal masses. Urinary bladder unremarkable. LYMPH NODES: No lymphadenopathy. VESSELS: Vascular calcifications. PERITONEUM / RETROPERITONEUM: No free air or fluid. BONES: Degenerative changes. SOFT TISSUES: Unremarkable. IMPRESSION: 1. Mild air and fluid distention of small bowel loops proximal to small bowel anastomotic sutures in the mid abdomen, likely due to hyperperistalsis at the anastomotic site. The degree of bowel dilation is not suspicious for small bowel obstruction. Liquid stool throughout the colon and rectum as seen with diarrhea. 2. Multiple tiny nonobstructive bilateral renal urolithiasis. Signed by: Brayan Gomez DO on 02/17/2020 10:51 PM
--- NOTE | 2020-02-17 23:06 | NUR ---
Spoke with Sujata CUEVAS of [facility] for reports & was made aware regarding awaiting for EMS transport back to their facility.
[2020-02-18 01:12] VITALS: BP 107/68
== END 2020-02-17 23:35 ==
LOC: ER 18:41
DX: R10.9 Unspecified abdominal pain (principal); N20.0 Calculus of kidney; R11.2 Nausea with vomiting, unspecified; E86.0 Dehydration
CPT/HCPCS: 36415; 74176; 80053; 81001; 82150; 82550; 82553; 83605; 83690; 84484; 85025; 87040; 93005; 99285; J2405; J7030

== ENCOUNTER → 2020-11-02 | Outpatient (CLI) | payer MEDICARE ==
[~2020-11-02] MED LIST changes: +ONDANSETRON HCL INJ 2MG/ML 2ML 2 MG/ML VIAL ONE; +REGADENOSON 0.4 MG/5 ML SYR IV ONE
== END ==
LOC: NM 09:40
PROVIDERS: ATTEND Nurse Practitioner Family
DX: R06.02 Shortness of breath (principal); R07.9 Chest pain, unspecified
CPT/HCPCS: 78452; 93017; A9502; J2405; J2785